=== PATIENT | male | born 1940 | race Caucasian/White ===

== ENCOUNTER 2020-01-25 08:18 | Outpatient (CLI) | payer MEDICARE, SELFPAY ==
--- NOTE | 2020-01-25 | ECG_ITS ---
Measurements Intervals [place] Rate: 58 P: -5 SD: 148 QRS: -41 QRSD: 126 T: 78 QT: 453 QTc: 449 Interpretive Statements SINUS BRADYCARDIA WITH MARKED SINUS ARRHYTHMIA ATRIAL PREMATURE COMPLEXES LEFT AXIS DEVIATION BORDERLINE AV CONDUCTION DELAY LEFT BUNDLE BRANCH BLOCK ABNORMAL ECG Electronically Signed On 01-25-2020 9:14:28 CDT by Jerzy Gamble D.O.
[2020-01-25 09:09] LABS: Cholesterol 131 mg/dL (0-200); HDL Direct 44 mg/dL; Triglycerides 91 mg/dL (<150)
[2020-01-25 09:20] LABS: LDL Cholesterol Direct 67 mg/dL
== END 2020-01-25 08:19 | disposition home or self-care (01) ==
PROVIDERS: PCP Internal Medicine; Visit Provider Internal Medicine Cardiovascular Disease
DX: Z95.1 Presence of aortocoronary bypass graft (principal); Z95.2 Presence of prosthetic heart valve; E78.2 Mixed hyperlipidemia; I48.0 Paroxysmal atrial fibrillation; J98.4 Other disorders of lung; I48.91 Unspecified atrial fibrillation; R06.83 Snoring; R94.31 Abnormal electrocardiogram [ECG] [EKG]
CPT/HCPCS: 36415; 80061; 93005

== ENCOUNTER 2020-08-01 11:27 | Outpatient (CLI) | payer MEDICARE, SELFPAY ==
--- NOTE | 2020-08-01 11:56 | ECG_ITS ---
Measurements Intervals [place] Rate: 59 P: -53 MO: 143 QRS: -52 QRSD: 131 T: 88 QT: 434 QTc: 431 Interpretive Statements SINUS OR ECTOPIC ATRIAL BRADYCARDIA LEFT BUNDLE BRANCH BLOCK BASELINE ARTIFACT- I, III, AVR, AVL, AVF, V1-V6 ABNORMAL ECG Electronically Signed On 08-01-2020 13:01:33 CDT by Jerzy Gamble D.O.
== END 2020-08-01 11:28 | disposition home or self-care (01) ==
PROVIDERS: PCP Internal Medicine Cardiovascular Disease; Visit Provider Internal Medicine Cardiovascular Disease
DX: E78.2 Mixed hyperlipidemia (principal); I48.0 Paroxysmal atrial fibrillation; J98.4 Other disorders of lung; I48.91 Unspecified atrial fibrillation; Z95.1 Presence of aortocoronary bypass graft; Z95.2 Presence of prosthetic heart valve; I44.7 Left bundle-branch block, unspecified
CPT/HCPCS: 93005

== ENCOUNTER 2021-10-28 09:51 | Emergency (ER) | payer MEDICARE, SELFPAY ==
[2021-10-28] VITALS (14 sets, daily range): BP systolic 111–166; BP diastolic 64–91; PULSE 45–60; RESP 14–21; O2SAT 96–100
--- NOTE | ~2021-10-28 | CT_ITS ---
EXAMINATION: CT brain wo con DATE: 10/28/2021 11:21 INDICATION: Dizziness TECHNIQUE: Computed tomography (CT) of the head was performed without intravenous contrast. The mA wa s adjusted according to patient size. Iterative reconstruction technique was employed. Exam dose: 60 5.33 mGy-cm total exam DLP. COMPARISON: 12/01/2014 CT brain FINDINGS: Bilateral vertebral artery, basilar artery and prominent bilateral carotid siphon and supra clinoid internal carotid artery calcifications. There is nonspecific diminished attenuation of the cerebral white matter, likely due to chronic small vessel ischemic changes. There is moderately prominent cerebral and cerebellar volume loss. No intracranial mass lesion or hemorrhage or cerebrovascular accident is detected. No midline shift o r mass effect effect. No orbital mass lesion. Bilateral maxillary sinus mucous retention cysts or polyps. Is mild patchy soft tissue thickening of the ethmoid septa. The paranasal sinuses and mastoid air cells are otherwise unremarkable. No fracture or bone destruction of the cranial vault. IMPRESSION: Cerebral atherosclerosis and chronic small vessel ischemic changes of the cerebral white matter No acute intracranial finding Reviewed, dictated and finalized at [facility]. Reviewed, dictated and finalized at location [facility].
--- NOTE | 2021-10-28 10:31 | PC.NURSE ---
EDP at bedside to assess pt.
--- NOTE | 2021-10-28 10:40 | ECG_ITS ---
Measurements Intervals [place] Rate: 49 P: PA: 0 QRS: -45 QRSD: 130 T: 71 QT: 480 QTc: 435 Interpretive Statements MARKED SINUS BRADYCARDIA WITH OCCASIONAL ATRIAL PREMATURE COMPLEXES LEFT ANTERIOR FASCICULAR BLOCK [QRS AXIS <= -45, QR IN I, RS IN II] MODERATE ST DEPRESSION [0.05+ mV ST DEPRESSION] INTRAVENTRICULAR CONDUCTION DELAY ABNORMAL ECG Electronically Signed On 10-28-2021 13:43:34 CDT by Ham Stephens M.D.
--- NOTE | 2021-10-28 10:41 | ED.DIZZY ---
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 no other issues fine when to bed last night on eliquis Related Data Allergies Allergy/AdvReac Type Severity Reaction Status Date / Time No Known Allergies Allergy Unverified 08/24/18 07:56 Review of Systems Constitutional: Comments: CONSTITUTIONAL: Denies fever, chills, or sweats. EYES: Denies visual changes, redness, or discharge. ENT: Denies rhinorrhea, congestion, sore throat, or otalgia. CARDIOVASCULAR: Denies chest pain, palpitations, or edema. RESPIRATORY: Denies cough or dyspnea. GASTROINTESTINAL: Denies abdominal pain, nausea, vomiting, or diarrhea. GENITOURINARY: Denies dysuria or hematuria. SKIN: Denies rash or itching. MUSCULOSKELETAL: Denies back pain, joint pain, or myalgia. NEUROLOGIC: Denies headache, numbness, or weakness. PSYCHIATRIC: Denies anxiety or depression. ON LICENSE OF [facility] Family History Family History (Updated 05/06/15 @ 07:37 by DOCTOR UNKNOWN) Sibling Malignant neoplasm of prostate Mother Family history of heart disease in male family member before age 55 Father Family history of heart disease in male family member before age 55 Social History Social History Smoking status: Never smoker Alcohol intake: current Exam Const: Other: APPEARANCE: Well appearing, no pain in distress, well-nourished. Head normocephalic atraumtaic. EYES: PERRLA/EOMI, conjunctivae very clear. NOSE: Normal no drainage EARS:TMS clear Deuce Medley, with good light reflex. THROAT: Pharynx clear, no exudate. NECK: Supple. No adenopathy, no masses. RESPIRATORY: Airway patent, repsirations nonlabored. Clear to auscultation bilaterally, no rales, rhonchi, wheezing. CARDIOVASCULAR: Regular rate and rhythm without murmurs rubs or gallops. ABDOMINAL: Soft, nontender, nondistended, no hepatosplenomegally MUSCULOSKELETAl: Moves all extremities. Strenght/ROM intact, No edema, No calf tenderness. NEURO: Alert. Cranial nerves II through XII intact. Good gait. Good coordination SKIN:: Warm, dry. Normal Color PSYCHIATRIC: Normal affect/mood, normal interaction with parents. Course Course Emergency Course: updated pt good with plan and will f/u his homicide squad sergeant at [facility] for further outpt testing and recheck platelet count Vital Signs Vital signs: Vital Signs Pulse Rate 59 L 10/28/21 10:31 Respiratory Rate 16 10/28/21 10:31 Blood Pressure 166/91 H 10/28/21 10:31 Pulse Oximetry 97 10/28/21 10:31 Oxygen Delivery Room Air 10/28/21 10:31 Pulse Rate 59 L 10/28/21 10:31 Respiratory Rate 16 10/28/21 10:31 Blood Pressure 166/91 H 10/28/21 10:31 Pulse Oximetry 97 10/28/21 10:31 Oxygen Delivery Room Air 10/28/21 10:31 MDM - Dizziness Lab Data Result diagrams: 10/28/21 10:50 10/28/21 10:50 Labs: Lab Results 10/28/21 10/28/21 10/28/21 Range/Units 10:50 10:50 10:50 WBC 7.7 (4.5-10.0) K/mm3 RBC 5.01 (4.6-6.20) M/mm3 Hgb 15.1 (14.0-18.0) g/dL Hct 46.0 (42.0-52.0) % MCV 91.8 (80-100) fl MCH 30.1 (26-34) pg MCHC 32.8 (32-36) g/dl RDW 12.9 (11.5-14.5) % Plt Count 139 L (150-375) k/mm3 MPV 11.1 H (7.4-10.4) fl Immature Gran % (Auto) 0.1 (0-0.5) % Neut % (Auto) 54.1 (45.5-73.1) % Lymph % (Auto) 33.5 (18.3-44.2) % [place] % (Auto) 10.2 H (2.6-8.5) % Eos % (Auto) 1.7 (0-4.4) % Baso % (Auto) 0.4 (0.2-1.2) % Lymph # (Auto) 2.58 (0.9-3.2) K/mm3 [place] # (Auto) 0.8 H (0.1-0.6) K/mm3 Eos # (Auto) 0.1 (0-0.3) K/mm3 Baso # (Auto) 0.0 (0.0-0.1) K/mm3 Abs Immat Gran (auto) 0.01 (0.00-0.031)
[2021-10-28 11:01] LABS: Basophils Percent Auto 0.4 % (0.2-1.2); Eosinophils Absolute Auto 0.1 K/mm3 (0-0.3); Eosinophils Percent Auto 1.7 % (0-4.4); Hemoglobin 15.1 g/dL (14.0-18.0); Immature Granulocyte Absolute 0.01 K/mm3 (0.00-0.031); Immature Granulocyte Percent A 0.1 % (0-0.5); Immature Platelet Fraction Pct 6.9 % (0.9-11.2); Lymphocytes Absolute Auto 2.58 K/mm3 (0.9-3.2); Lymphocytes Percent Auto 33.5 % (18.3-44.2); Mean Corpuscular HGB Conc 32.8 g/dl (32-36); Mean Corpuscular Hemoglobin 30.1 pg (26-34); Mean Corpuscular Volume 91.8 fl (80-100); Mean Platelet Volume 11.1 fl (7.4-10.4); Monocytes Absolute Auto 0.8 K/mm3 (0.1-0.6); Monocytes Percent Auto 10.2 % (2.6-8.5); Neutrophils Absolute Auto 4.2 K/mm3 (1.3-6.7); Neutrophils Percent Auto 54.1 % (45.5-73.1); Platelet Count Result 139 k/mm3 (150-375); Red Blood Count 5.01 M/mm3 (4.6-6.20); Red Cell Distribution Width 12.9 % (11.5-14.5); White Blood Count 7.7 K/mm3 (4.5-10.0)
[2021-10-28 11:15] LABS: Alanine Aminotransferase 29 U/L (6-50); Albumin Level 3.9 g/dL (3.5-5.1); Alkaline Phosphatase 85 U/L (38-126); Anion Gap 7 mmol/L (8-16); Aspartate Amino Transferase 25 U/L (17-59); Blood Urea Nitrogen 11 mg/dL (9-20); Calcium 8.5 mg/dL (8.4-10.2); Carbon Dioxide 23 mmol/L (22-30); Chloride 108 mmol/L (98-107); Estimated CRCL calculation 68 ml/min; Estimated Glomerular Filt Rate > 60; Glucose 94 mg/dL (65-110); INR 1.3; Prothrombin Time 15.7 Seconds (11.1-14.7); Sodium 138 mmol/L (137-145)
[2021-10-28 11:16] LABS: Partial Thromboplastin Time 32.4 SECONDS (22.3-36.8)
--- NOTE | 2021-10-28 11:20 | PC.NURSE ---
Patient off unit to CT.
[2021-10-28 11:26] LABS: Troponin I 0.014 ng/mL (0.000-0.034)
== END 2021-10-28 13:21 | disposition home or self-care (01) ==
PROVIDERS: Emergency Provider Emergency Medicine; PCP Internal Medicine Cardiovascular Disease
DX: R42 Dizziness and giddiness (principal); I67.2 Cerebral atherosclerosis; I49.1 Atrial premature depolarization; I44.4 Left anterior fascicular block; I45.9 Conduction disorder, unspecified
CPT/HCPCS: 36415; 70450; 80053; 84484; 85025; 85055; 85610; 85730; 93005; 99284

== ENCOUNTER 2022-08-10 10:42 | Emergency (ER) | payer MEDICARE, SELFPAY ==
[2022-08-10] VITALS (13 sets, daily range): BP systolic 125–160; BP diastolic 73–93; PULSE 70–73; RESP 13–22; TEMP 37; O2SAT 96–100
--- NOTE | ~2022-08-10 | CT_ITS ---
EXAMINATION: CT brain wo con DATE: 08/10/2022 13:20 INDICATION: Dizziness TECHNIQUE: Computed tomography (CT) of the head was performed without intravenous contrast. The mA wa s adjusted according to patient size. Iterative reconstruction technique was employed. Exam dose: 68 1.00 mGy-cm total exam DLP. COMPARISON: 10/28/2021 CT head. FINDINGS: Bilateral vertebral artery, basilar artery and prominent bilateral carotid siphon internal carotid artery calcifications are again noted. There is nonspecific diminished attenuation of the cerebral white matter, likely due to chronic small vessel ischemic changes. No intracranial mass lesion or hemorrhage or cerebrovascular accident. No midline shift or mass effec t. There is central and cortical cerebral atrophy. No subdural or epidural hematoma. There is polypoid soft tissue opacities of the maxillary sinuses consistent with mucous retention cys ts or polyps and patchy opacification of the ethmoid air cells. The mastoid air cells are normally de veloped and aerated. No fracture or bone destruction of the cranial vault IMPRESSION: No significant change since 10/28/2021 Reviewed, dictated and finalized at [facility]. Reviewed, dictated and finalized at location [facility].
--- NOTE | ~2022-08-10 | XR_ITS ---
XR chest 2V DATE: 08/10/2022 11:48 INDICATION: Weakness TECHNIQUE: AP and lateral views COMPARISON: 12/01/2014 PA and lateral chest FINDINGS: Status post sternotomy/CABG. Right dual lead pacemaker device with leads overlying right at rium and right ventricle. Heart size is normal. No pulmonary infiltrate or consolidation, pleural effusion or pulmonary vascular congestion or pneumo thorax is detected. Degenerative spurring of the thoracic spine. IMPRESSION: Status post sternotomy/CABG; right dual lead pacemaker device No active cardiopulmonary disease Reviewed, dictated and finalized at location [facility].
--- NOTE | 2022-08-10 11:00 | ECG_ITS ---
Measurements Intervals [place] Rate: 69 P: RI: 0 QRS: -86 QRSD: 194 T: 91 QT: 467 QTc: 504 Interpretive Statements SINUS RHYTHM WITH FIRST DEGREE AV BLOCK LEFT AXIS DEVIATION LEFT BUNDLE BRANCH BLOCK BASELINE ARTIFACT- I, II, AVR, AVL, AVF, V1-V6 ABNORMAL ECG COMPARED TO ECG 10/28/2021 11:58:13 SINUS RHYTHM NOW PRESENT Electronically Signed On 08-10-2022 12:53:21 CDT by Jerzy Gamble D.O.
[2022-08-10 11:31] LABS: Basophils Percent Auto 0.3 % (0.2-1.2); Eosinophils Absolute Auto 0.1 K/mm3 (0-0.3); Eosinophils Percent Auto 1.6 % (0-4.4); Hematocrit 44.6 % (42.0-52.0); Hemoglobin 14.3 g/dL (14.0-18.0); Immature Granulocyte Absolute 0.01 K/mm3 (0.00-0.031); Immature Granulocyte Percent A 0.1 % (0-0.5); Lymphocytes Absolute Auto 1.77 K/mm3 (0.9-3.2); Lymphocytes Percent Auto 24.3 % (18.3-44.2); Mean Corpuscular HGB Conc 32.1 g/dl (32-36); Mean Corpuscular Hemoglobin 29.8 pg (26-34); Mean Corpuscular Volume 92.9 fl (80-100); Monocytes Absolute Auto 0.5 K/mm3 (0.1-0.6); Monocytes Percent Auto 6.3 % (2.6-8.5); Neutrophils Absolute Auto 4.9 K/mm3 (1.3-6.7); Neutrophils Percent Auto 67.4 % (45.5-73.1); Platelet Count Result 152 k/mm3 (150-375); White Blood Count 7.3 K/mm3 (4.5-10.0)
[2022-08-10 11:48] LABS: Alanine Aminotransferase 17 U/L (6-50); Alkaline Phosphatase 66 U/L (38-126); Anion Gap 6 mmol/L (8-16); Aspartate Amino Transferase 25 U/L (17-59); Bilirubin,Total 0.8 mg/dL (0.2-1.3); Blood Urea Nitrogen 17 mg/dL (9-20); Calcium 8.5 mg/dL (8.4-10.2); Carbon Dioxide 29 mmol/L (22-30); Chloride 107 mmol/L (98-107); Estimated CRCL calculation 63 ml/min; Estimated Glomerular Filt Rate > 60; Glucose 152 mg/dL (65-110); Sodium 142 mmol/L (137-145)
--- NOTE | 2022-08-10 12:30 | ED.WEAKNESS ---
HPI - Weakness General Chief complaint: Weakness Stated complaint: Weakness Time Seen by Provider: 08/10/22 12:01 Source: RN notes reviewed History of Present Illness HPI Narrative: Patient presents emergency department from home for dizziness. Patient states he was sitting on the couch watching TV when he got extremely dizzy and diaphoretic. He states that this episode lasted for approximately 30 minutes and was resolving on the way into the emergency department is now completely resolved. States that the room felt like it was spinning and he felt like he was going to pass out. States that during this episode he had no numbness or weakness of the extremities denies having chest pain shortness of breath or any nausea or vomiting. He states he has no dizziness at this time. He states he is never had any similar episodes. The patient states he does have a pacemaker present Related Data Allergies Allergy/AdvReac Type Severity Reaction Status Date / Time No Known Allergies Allergy Unverified 08/10/22 11:38 Review of Systems Review of Systems: Gen.: Denies fevers or chills reports diaphoresis Eyes: Denies eye pain or visual change ENT: Denies congestion Respiratory: Denies shortness of breath or cough CV: Denies chest pain or palpitations GI: Denies abdominal pain nausea, emesis or diarrhea Musculoskeletal: Denies back pain or muscle pain Neuro: Reports dizziness Skin: Denies rash Except as documented, all other systems reviewed and negative FORMERLY [facility] Past Medical History Medical History (Updated 08/10/22 @ 15:20 by Marcel Kline DO) Essential (primary) hypertension Family History Family History (Updated 05/06/15 @ 07:37 by DOCTOR UNKNOWN) Sibling Malignant neoplasm of prostate Mother Family history of heart disease in male family member before age 55 Father Family history of heart disease in male family member before age 55 Social History Social History Smoking status: Never smoker Alcohol intake: current Exam Narrative: APPEARANCE: No acute distress, nontoxic, resting in bed HEENT: Normocephalic, atraumatic, OMM, TMs clear bilaterally EYES: PERRL, EOMI NECK: Supple, nontender, full range of motion without pain, no meningismus RESPIRATORY: No respiratory distress, clear to auscultation bilaterally with no rhonchi wheezing or rales CARDIOVASCULAR: RRR s murmur ABDOMINAL: Soft, nontender, nondistended MUSCULOSKELETAL: Moves all extremities. No clubbing, cyanosis or edema. NEURO: A and O ?3, following commands, speech normal, no facial droop,muscle strength 5 out of 5 bilateral upper and lower extremities, no pronator drift SKIN:: Warm, dry. Normal Color PSYCHIATRIC: Normal affect/mood Course Course Emergency Course: Patient was able to get up and ambulate in the emergency department with no dizziness and no difficulty The patient's pacemaker was interrogated I reviewed the interrogation as well as discussed with Urbano hector patient has been having some intermittent episodes of A-fib but patient had no episodes of A-fib or arrhythmias noted today that occurred with symptoms and A-fib is self-limited Called and discussed with Dr. Whitlock presentation and work-up agrees with plan for discharge patient does have a scheduled appointment for tomorrow Discussed with patient results of workup and diagnosis. Discussed need for follow-up with primary care, proper use of medication, and reasons to return to the emergency department. Patient understands and agrees to current treatment plan Vital Signs Vital signs: Vital Signs Temperature 98.6 F 08/10/22 10:57 Pulse Rate 70 08/10/22 10:57 Respiratory Rate 16 08/10/22 10:57 Blood Pressure 146/73 H 08/10/22 10:57 Pulse Oximetry 100 08/10/22 10:57 Oxygen Delivery Room Air 08/10/22 10:57 Temperature 98.6 F 08/10/22 10:57 Pulse Rate 70 08/10/22 14:41 Respiratory Rate 20 08/10/22
--- NOTE | 2022-08-10 12:43 | PC.NURSE ---
kim sanchezaster rep for [facility] [phone]
[2022-08-10 12:47] LABS: INR 1.4; Prothrombin Time 16.5 Seconds (11.1-14.7)
[2022-08-10 12:48] LABS: Partial Thromboplastin Time 30.9 SECONDS (22.3-36.8)
[2022-08-10 12:49] LABS: Troponin I < 0.012 ng/mL (0.000-0.034)
[2022-08-10 13:20] LABS: Appearance Urine Clear (Clear); Bacteria Urine None Seen /hpf; Bilirubin Urine Negative (Negative); Blood Urine 2+ (Negative); Color Urine Yellow (Yellow); Glucose Urine UA Negative (Negative); Ketones Urine Trace mg/dL (Negative); Leukocyte Esterase Ur Negative LEU/UL (Negative); Need Manual Microscopic Reviewed; Nitrate Urine Negative (Negative); Protein Urine 1+ mg/dL (Negative); RBC Urine 51-100 /hpf (0-2); Specific Grav Ur 1.025 (1.001-1.035); Squamous Epithelial Cell Urine Few /hpf (Few); pH Urine 5.5 (5.0-9.0)
[2022-08-10 13:26] LABS: Add Urine Microscopic? YES
== END 2022-08-10 15:48 | disposition home or self-care (01) ==
PROVIDERS: Emergency Medicine; Emergency Provider Emergency Medicine; PCP Internal Medicine Cardiovascular Disease
DX: R42 Dizziness and giddiness (principal); I10 Essential (primary) hypertension; R82.998 Other abnormal findings in urine; Z95.0 Presence of cardiac pacemaker; Z95.1 Presence of aortocoronary bypass graft; I44.0 Atrioventricular block, first degree; I44.7 Left bundle-branch block, unspecified
CPT/HCPCS: 36415; 70450; 71046; 80053; 81001; 84484; 85025; 85610; 85730; 87086; 93005; 99284

== ENCOUNTER 2024-02-20 15:59 | Inpatient (IN) | payer MEDICARE, SELFPAY ==
[2024-02-20] VITALS (20 sets, daily range): BP systolic 94–137; BP diastolic 55–69; PULSE 65–120; RESP 13–32; TEMP 37.6–39.6; O2SAT 95–100; BMI 21.2
--- NOTE | ~2024-02-20 | XR_ITS ---
EXAMINATION: XR chest PICC line DATE: 02/26/2024 12:47 INDICATION: Central line placement. TECHNIQUE: A single frontal view of the chest was obtained. COMPARISON: Chest 2 views 02/20/2024, chest CT 02/20/2024 FINDINGS: There is mild atelectasis in the lower lung zones. No pleural effusion or pneumothorax. Car diomegaly is noted. Median sternotomy wires and mediastinal surgical clips are seen, likely from prio r coronary artery bypass grafting. There is a right chest wall pacer with leads in the right atrium a nd right ventricle. A left upper extremity peripherally inserted central venous catheter (PICC) is se en with tip at superior cavoatrial junction. IMPRESSION: 1. PICC tip at superior cavoatrial junction. 2. Mild atelectasis in the lower lung zones. 3. Cardiomegaly. Reviewed, dictated and finalized at location A.
--- NOTE | ~2024-02-20 | CT_ITS ---
EXAMINATION: CT brain wo con DATE: 02/20/2024 17:43 INDICATION: AMS . TECHNIQUE: Computed tomography (CT) of the head was performed without intravenous contrast. The mA wa s adjusted according to patient size. Iterative reconstruction technique was employed. The dose-lengt h product was 1286.33 mGy-cm. COMPARISON: 08/10/2022. FINDINGS: Exam limited by moderate motion artifact. No acute intracranial hemorrhage or extra-axial fluid collection. No hydrocephalus, mass, or herniation. No acute ischemic infarct. Unremarkable dural venous sinus attenuation. No acute osseous abnormality. Bilateral maxillary retention cysts/polyps, the remaining aerated spaces are clear. Moderate atrophy and chronic white matter change. Atherosclerotic intracranial calcification. Bilater al lens replacements. IMPRESSION: No acute intracranial process. Reviewed, dictated and finalized at location [facility].
--- NOTE | ~2024-02-20 | CT_ITS ---
EXAMINATION: CT cervical spine wo con DATE: 02/20/2024 17:43 INDICATION: fall TECHNIQUE: Computed tomography (CT) of the cervical spine was performed without intravenous contrast. Automated exposure control and iterative reconstruction technique were employed. The dose-length pro duct was 271.97 mGy-cm. COMPARISON: X-ray chest 12/01/2014. FINDINGS: Vertebral Body Alignment: Exaggerated cervical lordosis. Grade 1 anterolistheses at C6-7 through T1-2 . Stable grade 1 anterolisthesis at T2-3. Craniocervical and atlantoaxial alignment: Moderate degenerative change. Alignment intact. Osseous structures/fracture: No evidence of a lytic or blastic process in the visualized spine. Mild anterior wedge deformity at T1-T2. Chronic stable superior endplate deformity at T3. Cervical soft tissues: The paraspinal soft tissues planes are maintained. Biapical pleural scarring. Aortic ectasia. Degenerative changes: Degenerative changes, without severe central canal narrowing. Severe bilateral neural foraminal narrowing at C5-6 secondary to degenerative change. IMPRESSION: Multilevel grade 1 anterolistheses at C6-7 through T1-2 presumably on a degenerative basis. Mild anterior wedge deformity at T1 and T2, probably a chronic finding noting that no comparisons are available to assess for interval change. Reviewed, dictated and finalized at location K. IMPRESSION: Multilevel grade 1 anterolistheses at C6-7 through T1-2 presumably on a degener ative basis. Mild anterior wedge deformity at T1 and T2, probably a chronic finding noting t hat no comparisons are available to assess for interval change.
--- NOTE | ~2024-02-20 | XR_ITS ---
EXAMINATION: XR abdomen/kub 1V DATE: 02/28/2024 09:15 INDICATION: Constipation TECHNIQUE: A supine view of the abdomen was obtained. COMPARISON: CT dated 02/20/2024 FINDINGS: Moderate amount of stool primarily in the proximal colon. No dilated gas-filled loops of bowel to sug gest obstruction. Large calcified gallstone projecting over the right upper quadrant. Lung bases are clear. Heart size is normal. Median sternotomy wires and mediastinal surgical clips are seen, likely from prior coronary artery bypass grafting. Dual-lead cardiac pacemaker with lead tips at the right a trium and right ventricle. Severe lower lumbar spondylosis. Small surgical clip at the medial proxima l left thigh. IMPRESSION: 1. Moderate amount of primarily proximal colonic stool. No dilated bowel to suggest obstruction. 2. Cholelithiasis. Reviewed, dictated and finalized at location A. IMPRESSION: 1. Moderate amount of primarily proximal colonic stool. No dilated bowel to sug gest obstruction. 2. Cholelithiasis.
--- NOTE | ~2024-02-20 | XR_ITS ---
EXAMINATION: XR chest 2V Exam Date/Time: 02/20/2024 17:33 CDT HISTORY: AMS Comparison: 08/10/2022. RESULT: Lines, tubes, and devices: Right chest pacer with intact leads. Intact sternotomy wires. Mediastinal surgical clips. Lungs and pleura: Emphysematous/senescent change, otherwise clear. Cardiomediastinal silhouette: Stable. Other: No acute osseous or upper abdominal finding. IMPRESSION: No acute cardiopulmonary process. Reviewed, dictated and finalized at location K.
--- NOTE | ~2024-02-20 | CT_ITS ---
EXAMINATION: CT chest abdomen pelvis w con DATE: 02/20/2024 18:41 INDICATION: sepsis, unknown source . TECHNIQUE: Computed tomography (CT) of the chest, abdomen, and pelvis was performed with 100 mL Omnip aque-350 intravenous contrast. Automated exposure control and iterative reconstruction technique were employed. The dose-length product was 466.88 mGy-cm. COMPARISON: X-ray chest, same date. FINDINGS: CHEST: Thoracic aorta: No significant dilation. No dissection. Lung parenchyma and airways: Mild motion artifact. Somewhat linear 7 mm left lower lobe and 8 mm righ t lower lobe opacities that are peripheral and flat in the orthogonal direction, likely represent sca r or intrapulmonary lymph nodes. Mild dependent atelectasis. Senescent changes. Apical pleural scarri ng. Patent airways. Thoracic inlet, axillae and chest wall: No thyroid or soft tissue mass. No axillary lymphadenopathy. Right chest pacer with intact leads, terminating in expected position. Mediastinum: No mass or lymphadenopathy. Heart and pericardium: Cardiomegaly. Status post CABG. Coronary artery calcifications: Moderate. Pleura: Small bilateral pleural fluid collections. Thoracic bones: No acute osseous finding in the chest. ABDOMEN/PELVIS: Liver: Normal. Biliary/Gallbladder: Cholelithiasis. No inflammatory changes No bile duct dilation. Pancreas: No mass or duct dilation. Spleen: Normal. Adrenals:No mass. Kidneys: No suspicious mass, obstructing stone, or hydronephrosis. GI tract: Mild distal esophageal and gastric wall edema. No small or large bowel dilation. Normal lizbeth endix. Diverticulosis without diverticulitis. Mesentery/Peritoneum: No ascites, mass, or free air. Retroperitoneum: No mass Pelvis: Moderate bladder wall thickening. Prostatomegaly. Soft Tissues: Soft tissues and body wall unremarkable. Abdominopelvic bones: No acute osseous finding in the abdomen/pelvis. Chronic-appearing superior end plate deformity at L3. IMPRESSION: Small bilateral pleural effusions. Mild esophagitis/gastritis. Cystitis versus bladder wall thickening from chronic outlet obstruction. Reviewed, dictated and finalized at location K.
--- NOTE | 2024-02-20 16:13 | ECG_ITS ---
Test Date: 2024-02-20 16:29:05 Measurements Intervals [place] Rate: 71 P: 0 MI: 0 QRS: 1 QRSD: 184 T: 58 QT: 405 QTc: 442 Interpretive Statements ELECTRONIC VENTRICULAR PACEMAKER No previous ECG available for comparison Electronically Signed On 02-20-2024 21:07:20 CDT by Toy Wellington M.D.
--- NOTE | 2024-02-20 16:24 | ED.AMS ---
HPI - Altered Mental Status General Chief Complaint: Altered Mental Status Stated Complaint: 6 falls last 2d, ams Time Seen by Provider: 02/20/24 16:13 History of Present Illness HPI narrative: 83-year-old male with history of pacemaker placement on Eliquis, hypertension, hyperlipidemia, dementia presents to the emergency department with at bedside for altered mental status and frequent falls. Over the past 3 days the patient has become increasingly her per the and states he has fallen 6 times in the past 2 days which is abnormal. From a fall yesterday he did hit his head did not lose consciousness. The patient is reporting pain to his right ribs but denies other areas of pain. He denies chest pain or shortness of breath, congestion, abdominal pain, N/V/ D, dysuria or hematuria, headache. The patient's states the patient has been moving his right arm uncontrollably for the past 7 days this is also new normal she notes that he has Unintentionally lost approximately 30 lb in the past 3 months. patient's states he has not been eating well. I discussed goals of care with the patient's . She desires the patient to be a full code. Related Data Home Medications Medication Instructions Recorded Confirmed apixaban 5 mg tablet (Eliquis) 5 mg PO BID 02/20/24 02/20/24 atorvastatin 20 mg tablet 20 mg PO DAILY 02/20/24 02/20/24 donepezil 5 mg tablet 5 mg PO DAILY 02/20/24 02/20/24 lisinopril 20 mg tablet 20 mg PO DAILY 02/20/24 02/20/24 metoprolol tartrate 25 mg tablet 25 mg PO HS 02/20/24 02/20/24 Allergies Allergy/AdvReac Type Severity Reaction Status Date / Time No Known Allergies Allergy Verified 02/20/24 21:31 Review of Systems Review of Systems: All systems reviewed & are unremarkable except as noted in HPI and below PMFSH Past Medical History Medical History Essential (primary) hypertension Family History Family History Sibling Malignant neoplasm of prostate Mother Family history of heart disease in male family member before age 55 Father Family history of heart disease in male family member before age 55 Social History Social History Smoking status: Former smoker Alcohol intake: current Do You Feel Safe in your Home?: Yes Lack of Transportation: No Lack of Food: Never True Current Housing: I Have Housing Concerned About Future Housing: No Difficulty Paying Gas/Electric Bills: No Difficulty Paying for Meds: No Currently Unemployed: No Education: High School Diploma/GED Difficulty w/ Childcare or Family Care: No Spiritual care concerns: No Exam Narrative: GENERAL: Elderly, confused, following commands, NAD HEAD: Normocephalic, atraumatic. EYES: PERRLA and EOMI. ENT: Nares clear, no rhinorrhea or epistaxis. Mucous membranes dry NECK: No midline cervical spinous tenderness, step-offs or deformities. BACK: No midline thoracolumbar spinous tenderness, step-offs or deformities CHEST: Clear to auscultation. No respiratory distress. tenderness to right chest wall with no crepitus, step-offs or deformities. pacemaker in place to the right chest wall. HEART: Regular rate and rhythm. No murmur heard. Normal peripheral pulses. ABDOMEN: Soft, nontender, nondistended, normal active bowel sounds. EXTREMITIES: Normal range of motion. No edema. SKIN: What appears to be an epidermal inclusion cyst to the sternum with surrounding warmth and blanching erythema, no fluctuance or induration, spontaneous drainage, no crepitus NEURO: No focal deficits. Alert and oriented x3 - patient able to tell me his name, where he is at, the year. States the month is March and is unable to elaborate why he is in the emergency department. cranial nerves 2-12 grossly intact. Sensation intact throughout. Streng
[2024-02-20 16:40] LABS: Base Excess ABG -0.8 mEq/l (+/-2.0); Fractional Inspired Oxygen 21 %; Oxygen Content ABG 17.5 %vol (16.0-22.0); Oxygen Saturation ABG 96.3 % (95.0-100.0); Oxyhemoglobin 95.4 % THb (90.0-100.0); PO2 ABG 74.4 mmHg (80.0-100.0); PO2 FiO2 Ratio Arterial Blood 3.54 %
[2024-02-20 16:43] LABS: Device ROOM AIR; Site Drawn LEFT RADIAL; pH ABG 7.509 (7.350-7.450)
[2024-02-20 16:45] LABS: Basophils Percent Auto 0.1 % (0.2-1.2); Eosinophils Percent Auto 0.1 % (0-4.4); Hematocrit 37.7 % (42.0-52.0); Hemoglobin 12.9 g/dL (14.0-18.0); Immature Granulocyte Absolute 0.06 K/mm3 (0.00-0.031); Immature Granulocyte Percent A 0.4 % (0-0.5); Lymphocytes Absolute Auto 0.49 K/mm3 (0.9-3.2); Lymphocytes Percent Auto 3.4 % (18.3-44.2); Mean Corpuscular HGB Conc 34.2 g/dl (32-36); Mean Corpuscular Hemoglobin 31.1 pg (26-34); Mean Corpuscular Volume 90.8 fl (80-100); Mean Platelet Volume 10.8 fl (7.4-10.4); Monocytes Absolute Auto 1.1 K/mm3 (0.1-0.6); Monocytes Percent Auto 7.7 % (2.6-8.5); Neutrophils Absolute Auto 12.7 K/mm3 (1.3-6.7); Neutrophils Percent Auto 88.3 % (45.5-73.1); Platelet Count Result 159 k/mm3 (150-375); Red Blood Count 4.15 M/mm3 (4.6-6.20); Red Cell Distribution Width 12.8 % (11.5-14.5); White Blood Count 14.4 K/mm3 (4.5-10.0)
[2024-02-20 16:54] LABS: Ethanol < 10 mg/dL (<10)
[2024-02-20 16:55] LABS: INR 1.7; Lactic Acid Reflex 2.1 mmol/L (0.7-2.0); Prothrombin Time 20.6 Seconds (11.1-14.7)
[2024-02-20 16:56] LABS: Partial Thromboplastin Time 39.3 Seconds (22.3-36.8)
[2024-02-20 16:59] LABS: Alanine Aminotransferase 19 U/L (6-50); Albumin Level 3.6 g/dL (3.5-5.1); Alkaline Phosphatase 71 U/L (38-126); Anion Gap 6 mmol/L (4-12); Aspartate Amino Transferase 28 U/L (17-59); Bilirubin,Total 1.2 mg/dL (0.2-1.3); Blood Urea Nitrogen 19 mg/dL (9-20); Calcium 8.8 mg/dL (8.4-10.2); Carbon Dioxide 25 mmol/L (22-30); Chloride 104 mmol/L (98-107); Creatine Kinase 51 U/L (55-170); Estimated CRCL calculation 59 ml/min; Estimated Glomerular Filt Rate > 60; Glucose 160 mg/dL (65-110); Lipase 33 U/L (23-300); Sodium 135 mmol/L (137-145)
[2024-02-20 17:06] LABS: Troponin I 0.012 ng/mL (0.000-0.034)
[2024-02-20] MEDS: LACTATED RINGERS 2,100 ML/1,000 ML BAG 999 ML IV CONT ×2 (17:15→18:46)
[2024-02-20] MEDS: PIPERACILLN/TAZ 3.375GM/NS50ML 3.375 GM/50 ML BAG IVPB ×2 (17:15→22:46)
[2024-02-20 17:16] LABS: Amphetamine Screen Urine Negative (Negative); Barbiturate Screen Urine Negative (Negative); Benzodiazepines Screen Urine Negative (Negative); Cannabinoid Screen Urine Negative (Negative); Cocaine Screen Urine Negative (Negative); Methadone Screen Urine Negative (Negative); Opiate Screen Urine Negative (Negative); Phencyclidine Screen Urine Negative (Negative)
[2024-02-20 17:20] LABS: Influenza A QL RT-PCR Negative (Negative); Influenza B QL RT-PCR Negative (Negative); RSV RNA, RT-PCR Negative (Negative); SARS-CoV-2 RNA PCR Negative (Negative)
[2024-02-20 17:25] LABS: Thyroid Stimulating Hormone 0.799 uIU/mL (0.465-4.680)
[2024-02-20 17:36] LABS: Add Urine Microscopic? YES; Appearance Urine Clear (Clear); Bacteria Urine None Seen /hpf; Bilirubin Urine 1+ (Negative); Blood Urine 1+ (Negative); Color Urine Dark Yellow (Yellow); Glucose Urine UA Negative (Negative); Ketones Urine Trace mg/dL (Negative); Leukocyte Esterase Ur Trace LEU/UL (Negative); Mucus Urine Present /lpf; Need Manual Microscopic Reviewed; Nitrate Urine Negative (Negative); Non Pathogenic Casts 0-2; Protein Urine 2+ mg/dL (Negative); Squamous Epithelial Cell Urine None Seen /hpf (Few); WBC Urine 0-5 /hpf (0-3); pH Urine 5.5 (5.0-9.0)
[2024-02-20] MEDS: ACETAMINOPHEN 500 MG TABLET 1000 MG PO (17:43)
[2024-02-20] MEDS: VANCOMYCIN 1,750 MG/NS 500 ML 1,750 MG/500 ML BAG 250 MG IVPB (18:28)
[2024-02-20 19:41] LABS: Reflex Lactic Acid Yes or No Add Lactic
[2024-02-20 20:21] LABS: Lactic Acid 0.8 mmol/L (0.7-2.0)
--- NOTE | 2024-02-20 20:33 | PM.IMHP ---
H&P: HPI History of Present Illness Date/Time: 02/20/24 20:33 Chief Complaint: altered mental status Narrative: this is an 83-year-old male with past medical history significant for dementia, hypertension. patient comes to the emergency room with his due to altered mental status, lethargy, a temp of 99? F, recurrent falls, right upper extremity involuntary movement. Most of the history has been obtained from who is at bedside patient although he knows he is at [facility] can not tell why he is in the hospital. Patient denies any issues at the present time. Preliminary workup has been essentially nonrevealing. Patient has been started empirically on antibiotics placed in observation for further evaluation management and treatment. EXAMINATION: CT brain wo con DATE: 02/20/2024 17:43 INDICATION: AMS . TECHNIQUE: Computed tomography (CT) of the head was performed without intravenous contrast. The mA was adjusted according to patient size. Iterative reconstruction technique was employed. The dose-length product was 1286.33 mGy-cm. COMPARISON: 08/10/2022. FINDINGS: Exam limited by moderate motion artifact. No acute intracranial hemorrhage or extra-axial fluid collection. No hydrocephalus, mass, or herniation. No acute ischemic infarct. Unremarkable dural venous sinus attenuation. No acute osseous abnormality. Bilateral maxillary retention cysts/polyps, the remaining aerated spaces are clear. Moderate atrophy and chronic white matter change. Atherosclerotic intracranial calcification. Bilateral lens replacements. IMPRESSION: No acute intracranial process. EXAMINATION: XR chest 2V Exam Date/Time: 02/20/2024 17:33 CDT HISTORY: AMS Comparison: 08/10/2022. RESULT: Lines, tubes, and devices: Right chest pacer with intact leads. Intact sternotomy wires. Mediastinal surgical clips. Lungs and pleura: Emphysematous/senescent change, otherwise clear. Cardiomediastinal silhouette: Stable. Other: No acute osseous or upper abdominal finding. IMPRESSION: No acute cardiopulmonary process. EXAMINATION: CT chest abdomen pelvis w con DATE: 02/20/2024 18:41 INDICATION: sepsis, unknown source . TECHNIQUE: Computed tomography (CT) of the chest, abdomen, and pelvis was performed with 100 mL Omnipaque-350 intravenous contrast. Automated exposure control and iterative reconstruction technique were employed. The dose-length product was 466.88 mGy-cm. COMPARISON: X-ray chest, same date. FINDINGS: CHEST: Thoracic aorta: No significant dilation. No dissection. Lung parenchyma and airways: Mild motion artifact. Somewhat linear 7 mm left lower lobe and 8 mm right lower lobe opacities that are peripheral and flat in the orthogonal direction, likely represent scar or intrapulmonary lymph nodes. Mild dependent atelectasis. Senescent changes. Apical pleural scarring. Patent airways. Thoracic inlet, axillae and chest wall: No thyroid or soft tissue mass. No axillary lymphadenopathy. Right chest pacer with intact leads, terminating in expected position. Mediastinum: No mass or lymphadenopathy. Heart and pericardium: Cardiomegaly. Status post CABG. Coronary artery calcifications: Moderate. Pleura: Small bilateral pleural fluid collections. Thoracic bones: No acute osseous finding in the chest. ABDOMEN/PELVIS: Liver: Normal. Biliary/Gallbladder: Cholelithiasis. No inflammatory changes No bile duct dilation. Pancreas: No mass or duct dilation. Spleen: Normal. Adrenals:No mass. Kidneys: No suspicious mass, obstructing stone, or hydronephrosis. GI tract: Mild distal esophageal and gastric wall edema. No small or large bowel dilation. Normal appendix. Diverticulosis without diverticulitis. Mesentery/Peritoneum: No ascites, mass, or free air. Retroperitoneum: No mass Pelvis: Moderate bladder wall thickening. Prostatomegaly. Soft Tissues: Soft tissues and body wall unremarkable. Abdominopelvic b
--- NOTE | 2024-02-20 21:20 | ADMGEN ---
This patient, Tom Garner, was admitted to [facility] Surg Room 333-01. Patient/family oriented to hospital policies and general routines including ID bracelet, bed and alarms, visiting hours, pain management, procedures, bathroom and other care routines, personal items, smoking policy, room service/diet, and visiting hours. Information on how to activate the Rapid Response Team has been discussed. Patient/Family are encouraged to report perceived risks to care and to ask questions if they do not understand what they are told or what they should do.
[2024-02-20] MEDS: ACETAMINOPHEN 325 MG TABLET 650 MG PO (21:37)
[2024-02-21] VITALS (7 sets, daily range): BP systolic 90–96; BP diastolic 50–65; PULSE 69–72; RESP 14–20; TEMP 36.8–37.7; O2SAT 92–94; BMI 21.2
[2024-02-21] MEDS: PIPERACILLN/TAZ 3.375GM/NS50ML 3.375 GM/50 ML BAG IVPB ×4 (05:03→22:19)
[2024-02-21] MEDS: ACETAMINOPHEN 325 MG TABLET 650 MG PO (05:17)
[2024-02-21] MEDS: SODIUM CHLORIDE 0.9% IV 1,000 ML 999 ML IV CONT ×2 (05:34→06:50)
[2024-02-21 06:53] LABS: Estimated CRCL calculation 45 ml/min; Estimated Glomerular Filt Rate > 60
[2024-02-21] MEDS: ATORVASTATIN 20 MG TABLET PO (08:32)
[2024-02-21] MEDS: APIXABAN 5 MG TABLET PO ×2 (08:32→20:51)
[2024-02-21] MEDS: DONEPEZIL HCL 5 MG TABLET PO (08:32)
--- NOTE | 2024-02-21 16:10 | PM.IMPN ---
Progress Note: A&P Assessment and Plan (1) Fever: Code(s): R50.9 - Fever, unspecified Status: Acute (2) Altered mental status: Qualifiers: Altered mental status type: delirium Qualified Code(s): R41.0 - Disorientation, unspecified Code(s): R41.82 - Altered mental status, unspecified Status: Acute (3) Essential (primary) hypertension: Code(s): I10 - Essential (primary) hypertension Status: Acute (4) Dementia: Code(s): F03.90 - Unspecified dementia, unspecified severity, without behavioral disturbance, psychotic disturbance, mood disturbance, and anxiety Status: Acute (5) Dystonia: Code(s): G24.9 - Dystonia, unspecified Status: Acute Plan This is an 83-year-old male who presented to the ED with altered mental status and frequent falls over the past 3 days. On arrival to the ED he was hypotensive at 94/60 with temperature of 103.1?. He received IV fluid resuscitation and was started on broad-spectrum antibiotics. Laboratory workup showed CBC with leukocytosis of 14.4 hemoglobin 12.9 platelet was 159. CRP elevated at 17 TSH normal lactate mildly elevated at 2.1. Urinalysis showed rbc's and trace leukocyte esterase but no WBC. UDS any Thal alcohol level was negative. COVID flu swab and RSV swab was negative. EKG showed electronic ventricular pacemaker with a rate of 71 beats per minute. Troponin was undetectable. CT scan of the head showed no acute intracranial process. CT cervical spine showed multilevel grade 1 anterolisthesis at C6-C7 through T1-T2 on a degenerative basis. Mild anterior wedging deformity T1-T2 which is likely chronic. Chest x-ray with no acute cardiopulmonary process. ABG showed 7.509/27/74/21 consistent with respiratory alkalosis with compensatory metabolic alkalosis. Chest abdomen pelvis CT was done which showed small bilateral pleural effusion mild esophagitis/ gastritis and cystitis versus bladder wall thickening from chronic outlet obstruction. repeat lactic acid was normal with resuscitation Mild cellulitis the chest wall noted which could be the potential source. Continue antibiotics as ordered With vancomycin and Zosyn. unclear source of infection. Hypotension: Still mildly hypotensive and will hold blood pressure medication. Unintentional weight loss of 30 lb over past 3 months reported by recurrent falls PT OT to see leukocytosis Recheck labs and monitor leukocytosis. Gastritis/esophagitis add PPI Dementia History of dystonia Hypertension Hyperlipidemia History of pacemaker placement Chronic anticoagulation with Eliquis DVT prophylaxis Code status full code Subjective Date/time seen: 02/21/24 16:10 Interval history: patient feels better today. Denies any overt complain. Was febrile overnight. at bedside. Review of Systems Review of Systems: All systems reviewed & are unremarkable except as noted in HPI and below Exam Narrative: GENERAL: Elderly, confused, following commands, NAD HEAD: Normocephalic, atraumatic. EYES: PERRLA and EOMI. CHEST: Clear to auscultation. No respiratory distress. tenderness to right chest wall with no crepitus, step-offs or deformities. pacemaker in place to the right chest wall. HEART: Regular rate and rhythm. No murmur heard. Normal peripheral pulses. ABDOMEN: Soft, nontender, nondistended, normal active bowel sounds. EXTREMITIES: Normal range of motion. No edema. SKIN: What appears to be an epidermal inclusion cyst to the sternum with surrounding warmth and blanching erythema, no fluctuance or induration, spontaneous drainage, no crepitus NEURO: No focal deficits. Alert and oriented x3 - Objective Data Vital Signs Vital Signs: Vital Signs - 24 hr 02/20/24 16:17 02/20/24 17:11 02/20/24 17:11 Temperature 103.1 F H Pulse Rate 90 77 Respiratory Rate 20 Blood Pressure 94/64 L Pulse Oximetry 97 98 Oxygen Delivery Room Air Fraction o
[2024-02-21] MEDS: VANCOMYCIN 1,500 MG/NS 500 ML 1,500 MG/500 ML BAG 250 MG IVPB (17:53)
[2024-02-21 18:12] LABS: Basophils Percent Auto 0.3 % (0.2-1.2); Eosinophils Absolute Auto 0.1 K/mm3 (0-0.3); Eosinophils Percent Auto 0.4 % (0-4.4); Hematocrit 35.4 % (42.0-52.0); Hemoglobin 11.5 g/dL (14.0-18.0); Immature Granulocyte Absolute 0.05 K/mm3 (0.00-0.031); Immature Granulocyte Percent A 0.4 % (0-0.5); Lymphocytes Absolute Auto 0.79 K/mm3 (0.9-3.2); Lymphocytes Percent Auto 5.7 % (18.3-44.2); Mean Corpuscular HGB Conc 32.5 g/dl (32-36); Mean Corpuscular Hemoglobin 30.3 pg (26-34); Mean Corpuscular Volume 93.4 fl (80-100); Mean Platelet Volume 10.8 fl (7.4-10.4); Monocytes Absolute Auto 0.7 K/mm3 (0.1-0.6); Monocytes Percent Auto 4.8 % (2.6-8.5); Neutrophils Absolute Auto 12.2 K/mm3 (1.3-6.7); Neutrophils Percent Auto 88.4 % (45.5-73.1); Platelet Count Result 147 k/mm3 (150-375); Red Blood Count 3.79 M/mm3 (4.6-6.20); Red Cell Distribution Width 13.1 % (11.5-14.5); White Blood Count 13.8 K/mm3 (4.5-10.0)
[2024-02-21 18:36] LABS: Alanine Aminotransferase 22 U/L (6-50); Alkaline Phosphatase 74 U/L (38-126); Anion Gap 6 mmol/L (4-12); Aspartate Amino Transferase 35 U/L (17-59); Bilirubin,Total 1.1 mg/dL (0.2-1.3); Blood Urea Nitrogen 19 mg/dL (9-20); Calcium 8.2 mg/dL (8.4-10.2); Carbon Dioxide 23 mmol/L (22-30); Chloride 106 mmol/L (98-107); Estimated CRCL calculation 49 ml/min; Estimated Glomerular Filt Rate > 60; Glucose 130 mg/dL (65-110); Potassium 3.7 mmol/L (3.4-5.0); Sodium 135 mmol/L (137-145)
[2024-02-21] MEDS: PANTOPRAZOLE 40 MG TABLET PO (20:51)
--- NOTE | 2024-02-22 | ECHO_ITS ---
Patient Info Name: Tom Garner Age: 83 years : 1940 Gender: Male Ht: 72 in Wt: 156 lbs BSA: 1.89 m2 HR: 62 bpm BP: 110 / 65 mmHg Heart Rhythm: Paced Technical Quality: Fair Exam Date: 02/22/2024 10:00 AM Exam Location: Echo Lab Patient Status: Inpatient Admit Date: 02/21/2024 Staff Ordering Physician: Bradly Morales MD Motor Scooter Repairer: Awilda Francisco [facility] Attending Provider: Jovani Uriarte MD Exam Type: CA echo doppler color flow Study Info Indications - Bacteremia Complete two-dimensional, color flow and Doppler transthoracic echocardiogram is performed. Summary 1. Complete two-dimensional, color flow and Doppler transthoracic echocardiogram is performed. 2. With normal left ventricular size and overall normal systolic function. 3. Abnormal septal motion consistent with electronically paced rhythm. 4. Severe biatrial enlargement. 5. Small amount of mitral and tricuspid insufficiency. 6. No infectious vegetations were visualized. Left Ventricle Left ventricular chamber dimension is normal. Left ventricular systolic function is normal, estimated at 50-55%. Left ventricular septal wall motion is abnormal with septal motion related to pacing. The left ventricular diastolic function is normal. Right Ventricle Right ventricular chamber dimension is normal. Left Atria Left atrial chamber dimension is severely enlarged. Right Atria Right atrial chamber dimension is moderately enlarged. Aortic Valve The aortic valve is trileaflet. There is mild aortic valve sclerosis. Pulmonic Valve The pulmonic valve is normal. Mitral Valve The mitral valve has normal leaflets. There is mild mitral valve regurgitation. The mitral valve annulus is mildly calcified. Tricuspid Valve The tricuspid valve leaflets are normal. There is trace tricuspid valve regurgitation. Pericardium/Pleural The pericardium appears normal. Aorta The aortic root size at the sinus of Valsalva is normal. Left Ventricular Outflow Tract Name Value Normal LVOT 2D LVOT Diameter 2.0 cm LVOT Doppler LVOT Peak Gradient 3 mmHg LVOT Mean Gradient 1 mmHg LVOT VTI 16 cm LVOT VTI/AV VTI Ratio 0.7 LVOT Stroke Volume 50 ml LVOT CO 3.4 l/min LVOT CI 1.8 l/min/m2 Pulmonic Valve Name Value Normal PV Doppler PV Peak Gradient 2 mmHg PV Regurgitation Doppler PA Peak End Diastolic Velocity 96 cm/s Mitral Valve Name Value Normal MV Doppler
[2024-02-22] MEDS: PIPERACILLN/TAZ 3.375GM/NS50ML 3.375 GM/50 ML BAG IVPB ×2 (04:41→10:24)
[2024-02-22 05:24] VITALS: BP 110/65; PULSE 70; RESP 14; TEMP 36.7; O2SAT 97
[2024-02-22 06:55] LABS: Basophils Percent Auto 0.2 % (0.2-1.2); Eosinophils Absolute Auto 0.1 K/mm3 (0-0.3); Eosinophils Percent Auto 1.4 % (0-4.4); Hematocrit 32.1 % (42.0-52.0); Hemoglobin 10.5 g/dL (14.0-18.0); Immature Granulocyte Absolute 0.04 K/mm3 (0.00-0.031); Immature Granulocyte Percent A 0.4 % (0-0.5); Lymphocytes Absolute Auto 1.02 K/mm3 (0.9-3.2); Lymphocytes Percent Auto 10.9 % (18.3-44.2); Mean Corpuscular HGB Conc 32.7 g/dl (32-36); Mean Corpuscular Hemoglobin 30.4 pg (26-34); Mean Platelet Volume 11.1 fl (7.4-10.4); Monocytes Absolute Auto 0.7 K/mm3 (0.1-0.6); Monocytes Percent Auto 7.8 % (2.6-8.5); Neutrophils Absolute Auto 7.4 K/mm3 (1.3-6.7); Neutrophils Percent Auto 79.3 % (45.5-73.1); Platelet Count Result 137 k/mm3 (150-375); Red Blood Count 3.45 M/mm3 (4.6-6.20); White Blood Count 9.4 K/mm3 (4.5-10.0)
[2024-02-22 06:58] LABS: Alanine Aminotransferase 22 U/L (6-50); Albumin Level 2.5 g/dL (3.5-5.1); Alkaline Phosphatase 66 U/L (38-126); Anion Gap 6 mmol/L (4-12); Aspartate Amino Transferase 38 U/L (17-59); Bilirubin,Total 0.7 mg/dL (0.2-1.3); Blood Urea Nitrogen 18 mg/dL (9-20); Calcium 7.9 mg/dL (8.4-10.2); Carbon Dioxide 23 mmol/L (22-30); Chloride 107 mmol/L (98-107); Estimated CRCL calculation 49 ml/min; Estimated Glomerular Filt Rate > 60; Glucose 91 mg/dL (65-110); Potassium 3.9 mmol/L (3.4-5.0); Sodium 136 mmol/L (137-145)
[2024-02-22] MEDS: PANTOPRAZOLE 40 MG TABLET PO ×2 (08:35→20:01)
[2024-02-22] MEDS: ATORVASTATIN 20 MG TABLET PO (08:35)
[2024-02-22] MEDS: APIXABAN 5 MG TABLET PO ×2 (08:35→20:01)
[2024-02-22] MEDS: DONEPEZIL HCL 5 MG TABLET PO (08:35)
[2024-02-22] MEDS: ceFAZolin 2 GM/D5W 50 ML 2 GM/50 ML BAG IVPB ×2 (13:24→23:38)
[2024-02-22 14:00] VITALS: BP 121/73; PULSE 70; RESP 24; TEMP 36.3; O2SAT 98
--- NOTE | 2024-02-22 14:16 | PM.IMPN ---
Progress Note: A&P Assessment and Plan (1) Fever: Code(s): R50.9 - Fever, unspecified Status: Acute (2) Altered mental status: Qualifiers: Altered mental status type: delirium Qualified Code(s): R41.0 - Disorientation, unspecified Code(s): R41.82 - Altered mental status, unspecified Status: Acute (3) Essential (primary) hypertension: Code(s): I10 - Essential (primary) hypertension Status: Acute (4) Dementia: Code(s): F03.90 - Unspecified dementia, unspecified severity, without behavioral disturbance, psychotic disturbance, mood disturbance, and anxiety Status: Acute (5) Dystonia: Code(s): G24.9 - Dystonia, unspecified Status: Acute Plan This is an 83-year-old male who presented to the ED with altered mental status and frequent falls over the past 3 days. On arrival to the ED he was hypotensive at 94/60 with temperature of 103.1?. He received IV fluid resuscitation and was started on broad-spectrum antibiotics. Laboratory workup showed CBC with leukocytosis of 14.4 hemoglobin 12.9 platelet was 159. CRP elevated at 17 TSH normal lactate mildly elevated at 2.1. Urinalysis showed rbc's and trace leukocyte esterase but no WBC. UDS any Thal alcohol level was negative. COVID flu swab and RSV swab was negative. EKG showed electronic ventricular pacemaker with a rate of 71 beats per minute. Troponin was undetectable. CT scan of the head showed no acute intracranial process. CT cervical spine showed multilevel grade 1 anterolisthesis at C6-C7 through T1-T2 on a degenerative basis. Mild anterior wedging deformity T1-T2 which is likely chronic. Chest x-ray with no acute cardiopulmonary process. ABG showed 7.509/27/74/21 consistent with respiratory alkalosis with compensatory metabolic alkalosis. Chest abdomen pelvis CT was done which showed small bilateral pleural effusion mild esophagitis/ gastritis and cystitis versus bladder wall thickening from chronic outlet obstruction. repeat lactic acid was normal with resuscitation Mild cellulitis the chest wall noted which could be the potential source. Continue antibiotics as ordered With vancomycin and Zosyn. unclear source of infection. His blood culture came back positive for Gram-positive cocci in clusters. Will stop Zosyn and start Ancef for possible MSSA until finalization. Repeat blood culture in a.m.. Skin infection could be potential source. Will get echocardiogram today. If persistent bacteremia may need JOSEPH evaluation Hypotension: Still mildly hypotensive and will hold blood pressure medication. Unintentional weight loss of 30 lb over past 3 months reported by recurrent falls PT OT to see leukocytosis Recheck labs and monitor leukocytosis. Gastritis/esophagitis add PPI Dementia History of dystonia Hypertension Hyperlipidemia History of pacemaker placement Chronic anticoagulation with Eliquis DVT prophylaxis Code status full code Subjective Date/time seen: 02/22/24 14:16 Interval history: He feels better. Remains afebrile. soreness in the chest recently happened. No nausea vomiting. Review of Systems Review of Systems: All systems reviewed & are unremarkable except as noted in HPI and below Exam Narrative: GENERAL: Elderly, confused, following commands, NAD HEAD: Normocephalic, atraumatic. EYES: PERRLA and EOMI. CHEST: Clear to auscultation. No respiratory distress. tenderness to right chest wall with no crepitus, step-offs or deformities. pacemaker in place to the right chest wall. HEART: Regular rate and rhythm. No murmur heard. Normal peripheral pulses. ABDOMEN: Soft, nontender, nondistended, normal active bowel sounds. EXTREMITIES: Normal range of motion. No edema. SKIN: What appears to be an epidermal inclusion cyst to the sternum with surrounding warmth and blanching erythema, no fluctuance or induration, spontaneous drainage, no crepitus NEURO: No focal deficits. A
[2024-02-22 18:46] LABS: Vancomycin Trough 8.7 ug/mL (10.0-20.0)
[2024-02-22] MEDS: VANCOMYCIN 1,500 MG/NS 500 ML 1,500 MG/500 ML BAG 250 MG IVPB (20:00)
[2024-02-22 21:10] VITALS: BP 131/80; PULSE 72; RESP 16; TEMP 36.6; O2SAT 98
[2024-02-23 04:50] VITALS: BP 141/82; PULSE 70; RESP 18; TEMP 36.2; O2SAT 98
[2024-02-23] MEDS: ceFAZolin 2 GM/D5W 50 ML 2 GM/50 ML BAG IVPB ×2 (05:05→12:59)
[2024-02-23 06:34] LABS: Basophils Percent Auto 0.2 % (0.2-1.2); Eosinophils Absolute Auto 0.1 K/mm3 (0-0.3); Eosinophils Percent Auto 1.4 % (0-4.4); Hematocrit 35.3 % (42.0-52.0); Hemoglobin 11.5 g/dL (14.0-18.0); Immature Granulocyte Absolute 0.03 K/mm3 (0.00-0.031); Immature Granulocyte Percent A 0.3 % (0-0.5); Lymphocytes Absolute Auto 1.09 K/mm3 (0.9-3.2); Lymphocytes Percent Auto 12.5 % (18.3-44.2); Mean Corpuscular HGB Conc 32.6 g/dl (32-36); Mean Corpuscular Hemoglobin 30.2 pg (26-34); Mean Corpuscular Volume 92.7 fl (80-100); Monocytes Absolute Auto 0.8 K/mm3 (0.1-0.6); Monocytes Percent Auto 8.8 % (2.6-8.5); Neutrophils Absolute Auto 6.7 K/mm3 (1.3-6.7); Neutrophils Percent Auto 76.8 % (45.5-73.1); Platelet Count Result 154 k/mm3 (150-375); Red Blood Count 3.81 M/mm3 (4.6-6.20); White Blood Count 8.7 K/mm3 (4.5-10.0)
[2024-02-23 06:42] LABS: Potassium 3.9 mmol/L (3.4-5.0)
[2024-02-23 06:45] LABS: Alanine Aminotransferase 25 U/L (6-50); Alkaline Phosphatase 88 U/L (38-126); Anion Gap 7 mmol/L (4-12); Aspartate Amino Transferase 43 U/L (17-59); Bilirubin,Total 0.4 mg/dL (0.2-1.3); Blood Urea Nitrogen 16 mg/dL (9-20); Calcium 8.5 mg/dL (8.4-10.2); Carbon Dioxide 23 mmol/L (22-30); Chloride 107 mmol/L (98-107); Estimated CRCL calculation 60 ml/min; Estimated Glomerular Filt Rate > 60; Glucose 132 mg/dL (65-110); Magnesium 2.2 mg/dL (1.6-2.3); Sodium 137 mmol/L (137-145)
[2024-02-23] MEDS: APIXABAN 5 MG TABLET PO ×2 (07:45→20:40)
[2024-02-23] MEDS: DONEPEZIL HCL 5 MG TABLET PO (07:45)
[2024-02-23] MEDS: ATORVASTATIN 20 MG TABLET PO (07:45)
[2024-02-23] MEDS: VANCOMYCIN 1,500 MG/NS 500 ML 1,500 MG/500 ML BAG 250 MG IVPB (07:45)
[2024-02-23] MEDS: PANTOPRAZOLE 40 MG TABLET PO ×2 (07:45→20:40)
[2024-02-23 14:00] VITALS: BP 110/57; PULSE 70; RESP 22; TEMP 36.1; O2SAT 100
--- NOTE | 2024-02-23 14:47 | PM.IMPN ---
Progress Note: A&P Assessment and Plan (1) Sepsis: Qualifiers: Sepsis acute organ dysfunction status: without acute organ dysfunction Sepsis type: sepsis due to unspecified organism Qualified Code(s): A41.9 - Sepsis, unspecified organism Code(s): A41.9 - Sepsis, unspecified organism Status: Acute (2) Hypotension: Code(s): I95.9 - Hypotension, unspecified Status: Acute (3) Cellulitis: Qualifiers: Site of cellulitis: trunk Site of cellulitis of trunk: chest wall Qualified Code(s): L03.313 - Cellulitis of chest wall Code(s): L03.90 - Cellulitis, unspecified Status: Acute (4) Fever: Code(s): R50.9 - Fever, unspecified Status: Acute (5) Altered mental status: Qualifiers: Altered mental status type: delirium Qualified Code(s): R41.0 - Disorientation, unspecified Code(s): R41.82 - Altered mental status, unspecified Status: Acute (6) Essential (primary) hypertension: Code(s): I10 - Essential (primary) hypertension Status: Acute (7) Dementia: Code(s): F03.90 - Unspecified dementia, unspecified severity, without behavioral disturbance, psychotic disturbance, mood disturbance, and anxiety Status: Acute (8) Dystonia: Code(s): G24.9 - Dystonia, unspecified Status: Acute Plan HPI - This is an 83-year-old male who presented to the ED with altered mental status and frequent falls over the past 3 days. ED - On arrival to the ED he was hypotensive at 94/60 with temperature of 103.1?. He received IV fluid resuscitation and was started on broad-spectrum antibiotics. Laboratory workup showed leukocytosis of 14.4 hemoglobin 12.9 platelet was 159. CRP elevated at 17. TSH normal. lactate mildly elevated at 2.1. Urinalysis showed rbc's and trace leukocyte esterase but no WBC. UDS negative. Ethyl alcohol level was negative. COVID flu and RSV swab was negative. EKG showed electronic ventricular pacemaker with a rate of 71 beats per minute. Troponin was undetectable. CT scan of the head showed no acute intracranial process. CT cervical spine showed multilevel grade 1 anterolisthesis at C6-C7 through T1-T2 on a degenerative basis. Mild anterior wedging deformity T1-T2 which is likely chronic. Chest x-ray with no acute cardiopulmonary process. ABG showed 7.509/27/74/21 consistent with respiratory alkalosis with compensatory metabolic alkalosis. Chest abdomen pelvis CT was done which showed small bilateral pleural effusion mild esophagitis/ gastritis and cystitis versus bladder wall thickening from chronic outlet obstruction. repeat lactic acid was normal with resuscitation Hosp Coarse - Mild cellulitis noted on admission and felt could be the potential source. His blood culture came back positive for MRSA. Was on Zosyn and Vanco but changed to Ancef and Vanco until finalization. Repeat blood culture ordered. Echo showing EF 50-55%, normal diastolic function, and severe biatrial enlargement. No infectious vegetations noted. If persistent bacteremia may need JOSEPH evaluation. Plan for discharge on IV abx. Hypotension: Still mildly hypotensive but better. Continue to hold blood pressure medication. Unintentional weight loss of 30 lb over past 3 months reported by Recurrent falls PT OT to see Leukocytosis - Related to sepsis and resolved Gastritis/esophagitis PPI added Dementia History of dystonia Hypertension Hyperlipidemia History of pacemaker placement Chronic anticoagulation with Eliquis DVT prophylaxis Code status full code Subjective Date/time seen: 02/23/24 14:47 Interval history: 83yo male with dementia and HTN here for altered mental status. Assuming care. Chart reviewed. Patient is alert but confused. His is at bedside. She states patient fell about a month ago injuring his sternum. There is some erythema that she treated with Neosporin. Condition improved initially but th
[2024-02-23 20:00] VITALS: PULSE 70; RESP 18; O2SAT 100
[2024-02-23 20:20] LABS: Vancomycin Trough 16.9 ug/mL (10.0-20.0)
[2024-02-23] MEDS: VANCOMYCIN 1,500 MG/NS 500 ML 1,500 MG/500 ML BAG 125 MG IVPB (20:40)
[2024-02-23] MEDS: ACETAMINOPHEN 325 MG TABLET 650 MG PO (20:40)
[2024-02-23 21:12] VITALS: BP 137/83; PULSE 70; RESP 18; TEMP 36.6; O2SAT 100
[2024-02-24 05:39] VITALS: BP 132/80; PULSE 70; RESP 18; TEMP 36.4; O2SAT 97
[2024-02-24 07:00] LABS: Basophils Percent Auto 0.3 % (0.2-1.2); Eosinophils Absolute Auto 0.2 K/mm3 (0-0.3); Eosinophils Percent Auto 2.6 % (0-4.4); Hematocrit 33.7 % (42.0-52.0); Hemoglobin 10.8 g/dL (14.0-18.0); Immature Granulocyte Absolute 0.04 K/mm3 (0.00-0.031); Immature Granulocyte Percent A 0.6 % (0-0.5); Lymphocytes Absolute Auto 1.14 K/mm3 (0.9-3.2); Lymphocytes Percent Auto 17.4 % (18.3-44.2); Mean Corpuscular Hemoglobin 29.4 pg (26-34); Mean Corpuscular Volume 91.8 fl (80-100); Mean Platelet Volume 10.8 fl (7.4-10.4); Monocytes Absolute Auto 0.6 K/mm3 (0.1-0.6); Monocytes Percent Auto 9.8 % (2.6-8.5); Neutrophils Absolute Auto 4.6 K/mm3 (1.3-6.7); Neutrophils Percent Auto 69.3 % (45.5-73.1); Platelet Count Result 159 k/mm3 (150-375); Red Blood Count 3.67 M/mm3 (4.6-6.20); White Blood Count 6.6 K/mm3 (4.5-10.0)
[2024-02-24 07:10] LABS: Albumin Level 2.8 g/dL (3.5-5.1); Anion Gap 4 mmol/L (4-12); Blood Urea Nitrogen 12 mg/dL (9-20); Calcium 8.4 mg/dL (8.4-10.2); Carbon Dioxide 25 mmol/L (22-30); Chloride 110 mmol/L (98-107); Estimated CRCL calculation 60 ml/min; Estimated Glomerular Filt Rate > 60; Glucose 84 mg/dL (65-110); Phosphorus 3.4 mg/dL (2.5-4.5); Potassium 3.9 mmol/L (3.4-5.0); Sodium 139 mmol/L (137-145)
[2024-02-24 08:00] VITALS: O2SAT 97
[2024-02-24] MEDS: PANTOPRAZOLE 40 MG TABLET PO ×2 (08:22→21:59)
[2024-02-24] MEDS: DONEPEZIL HCL 5 MG TABLET PO (08:22)
[2024-02-24] MEDS: APIXABAN 5 MG TABLET PO ×2 (08:22→21:58)
[2024-02-24] MEDS: ATORVASTATIN 20 MG TABLET PO (08:22)
[2024-02-24 12:54] LABS: PSA, Free 0.7 ng/mL; PSA, Total 2.3 ng/mL (< OR = 4.0); Percent Free Prostate Spec Ag 30 % (calc) (>25)
[2024-02-24 14:00] VITALS: BP 126/79; PULSE 70; RESP 20; TEMP 36.6; O2SAT 100
[2024-02-24] MEDS: VANCOMYCIN 1,500 MG/NS 500 ML 1,500 MG/500 ML BAG 200 MG IVPB (14:19)
--- NOTE | 2024-02-24 16:49 | PM.IMPN ---
Progress Note: A&P Assessment and Plan (1) Sepsis: Qualifiers: Sepsis acute organ dysfunction status: without acute organ dysfunction Sepsis type: sepsis due to unspecified organism Qualified Code(s): A41.9 - Sepsis, unspecified organism Code(s): A41.9 - Sepsis, unspecified organism Status: Acute (2) Hypotension: Code(s): I95.9 - Hypotension, unspecified Status: Acute (3) Cellulitis: Qualifiers: Site of cellulitis: trunk Site of cellulitis of trunk: chest wall Qualified Code(s): L03.313 - Cellulitis of chest wall Code(s): L03.90 - Cellulitis, unspecified Status: Acute (4) Fever: Code(s): R50.9 - Fever, unspecified Status: Acute (5) Altered mental status: Qualifiers: Altered mental status type: delirium Qualified Code(s): R41.0 - Disorientation, unspecified Code(s): R41.82 - Altered mental status, unspecified Status: Acute (6) Essential (primary) hypertension: Code(s): I10 - Essential (primary) hypertension Status: Acute (7) Dementia: Code(s): F03.90 - Unspecified dementia, unspecified severity, without behavioral disturbance, psychotic disturbance, mood disturbance, and anxiety Status: Acute (8) Dystonia: Code(s): G24.9 - Dystonia, unspecified Status: Acute Plan HPI - This is an 83-year-old male who presented to the ED with altered mental status and frequent falls over the past 3 days. ED - On arrival to the ED he was hypotensive at 94/60 with temperature of 103.1?. He received IV fluid resuscitation and was started on broad-spectrum antibiotics. Laboratory workup showed leukocytosis of 14.4 hemoglobin 12.9 platelet was 159. CRP elevated at 17. TSH normal. lactate mildly elevated at 2.1. Urinalysis showed rbc's and trace leukocyte esterase but no WBC. UDS negative. Ethyl alcohol level was negative. COVID flu and RSV swab was negative. EKG showed electronic ventricular pacemaker with a rate of 71 beats per minute. Troponin was undetectable. CT scan of the head showed no acute intracranial process. CT cervical spine showed multilevel grade 1 anterolisthesis at C6-C7 through T1-T2 on a degenerative basis. Mild anterior wedging deformity T1-T2 which is likely chronic. Chest x-ray with no acute cardiopulmonary process. ABG showed 7.509/27/74/21 consistent with respiratory alkalosis with compensatory metabolic alkalosis. Chest abdomen pelvis CT was done which showed small bilateral pleural effusion mild esophagitis/ gastritis and cystitis versus bladder wall thickening from chronic outlet obstruction. repeat lactic acid was normal with resuscitation Hosp Coarse - Chest wall cellulitis noted on admission and felt could be the potential source. His blood culture came back positive for MRSA. Was on Zosyn and Vanco but changed to Ancef and Vanco until finalization. Changed just to Vanco. Repeat blood culture ordered. Echo showing EF 50-55%, normal diastolic function, and severe biatrial enlargement. No infectious vegetations noted. VIRSTA score is 4 but only due to PM in situ. If BCx remain negative, will place PICC line for home IV abx. Consult Cards for possible JOSEPH. Patient with hypotension early in his admission so his home blood pressure meds held. Hypotensive has resolved. Resume metoprolol and follow Unintentional weight loss of 30 lb over past 3 months reported by Recurrent falls so PT/OT ordered. Leukocytosis - Related to sepsis and resolved Gastritis/esophagitis PPI added Dementia History of dystonia Hypertension Hyperlipidemia History of pacemaker placement DVT prophylaxis - Chronic anticoagulation with Eliquis Code status - full code Subjective Date/time seen: 02/24/24 16:49 Interval history: 83yo male with dementia and HTN here for altered mental status. No CP. No Chest wall pain. No n/v. Eating okay. Slept well. Exam Narrative: AF 97.8 1
[2024-02-24 20:00] VITALS: PULSE 70; RESP 20; O2SAT 93
[2024-02-24 21:11] VITALS: BP 130/82; PULSE 70; RESP 20; TEMP 36.6; O2SAT 93
[2024-02-24 21:58] VITALS: PULSE 70
[2024-02-24] MEDS: METOPROLOL TARTRATE 25 MG TABLET PO (21:58)
[2024-02-24] MEDS: ACETAMINOPHEN 325 MG TABLET 650 MG PO (21:59)
[2024-02-25] VITALS (12 sets, daily range): BP systolic 127–163; BP diastolic 74–93; PULSE 69–80; RESP 14–22; TEMP 36.2–36.7; O2SAT 93–100
--- NOTE | 2024-02-25 | ECHO_ITS ---
Patient Info Name: Tom Garner Age: 83 years : 1940 Gender: Male Ht: 72 in Wt: 156 lbs BSA: 1.89 m2 Heart Rhythm: Paced Exam Date: 02/25/2024 11:06 AM Exam Location: Echo Lab Patient Status: Inpatient Admit Date: 02/21/2024 Staff Ordering Physician: Zaheer Krause MD Steeler: RL Attending Provider: Jovani Uriarte MD Referring Physician: Nelida COWAN; Exam Type: CA echo transesophageal Study Info Indications - SEPSIS Complete two-dimensional, color flow and Doppler transesophageal study is performed. Summary 1. Transesophageal echocardiogram demonstrating mobile infectious vegetations associated with the pacemaker leads that are seen in the right atrium. 2. No evidence of any valvular vegetation. 3. Mild mitral regurgitation. 4. Biatrial dilation. Left Ventricle Left ventricular chamber dimension is normal. Left ventricular systolic function is normal with an ejection fraction by Biplane Method of Discs of Empty. Right Ventricle Right ventricular chamber dimension is normal. Left Atria Left atrial chamber dimension is moderately enlarged. Right Atria Right atrial chamber dimension is moderately enlarged. Linear artifact in the right atrium suggestive of catheter(s), pacemaker lead(s), or ICD lead(s). 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 Pulmonic Valve The pulmonic valve is normal. Mitral Valve The mitral valve has normal leaflets. There is mild mitral valve regurgitation. Tricuspid Valve The tricuspid valve leaflets are normal. Pericardium/Pleural The pericardium appears normal. Inferior Vena Cava Not well visualized inferior vena cava with Empty collapse upon inspiration consistent with Empty right atrial pressure, Empty. Aorta The aortic root size at the sinus of Valsalva is not well visualized. Report Signatures
[2024-02-25 08:25] LABS: Anion Gap 4 mmol/L (4-12); Blood Urea Nitrogen 12 mg/dL (9-20); Calcium 8.4 mg/dL (8.4-10.2); Carbon Dioxide 26 mmol/L (22-30); Chloride 109 mmol/L (98-107); Estimated CRCL calculation 60 ml/min; Estimated Glomerular Filt Rate > 60; Glucose 85 mg/dL (65-110); Sodium 139 mmol/L (137-145)
[2024-02-25] MEDS: ATORVASTATIN 20 MG TABLET PO (09:31)
[2024-02-25] MEDS: APIXABAN 5 MG TABLET PO ×2 (09:31→20:20)
[2024-02-25] MEDS: DONEPEZIL HCL 5 MG TABLET PO (09:31)
[2024-02-25] MEDS: PANTOPRAZOLE 40 MG TABLET PO ×2 (09:32→20:20)
[2024-02-25] MEDS: METOPROLOL TARTRATE 25 MG TABLET PO ×2 (09:34→20:20)
--- NOTE | 2024-02-25 10:13 | PM.CNCAR ---
Assessment and Plan Assessment and plan (1) Fever: Code(s): R50.9 - Fever, unspecified Status: Acute (2) Sepsis: Qualifiers: Sepsis acute organ dysfunction status: without acute organ dysfunction Sepsis type: sepsis due to unspecified organism Qualified Code(s): A41.9 - Sepsis, unspecified organism Code(s): A41.9 - Sepsis, unspecified organism Status: Acute Plan This is an 83-year-old man with history of aortic valve replacement and a pacemaker implant receives his care at [place]. He comes to the hospital with feeling unwell was found to be significantly febrile in the emergency room several days ago and blood cultures have been found to be positive for methicillin-resistant staph. With antibiotics he is being treated with he is improving clinically. Because of his valvular disease and a pacemaker device he should undergo transesophageal echocardiography to examine for visible infectious vegetations. He understands this the procedure was explained to the patient and his we will set this up for a short time later today Zaheer Krause MD [facility] History of Present Illness History of Present Illness Consult date/time: 02/25/24 10:13 Reason For Visit: Sepsis Narrative: This is an 83-year-old man I am seeing today at the request of the hospitalist to arrange for transesophageal echo. The patient is not known to me prior to this encounter this is a very pleasant elderly man who came to the hospital several days ago to the emergency room. He was brought there by his family because he was feeling ill for several days had some generalized weakness some symptoms of altered mental status she denies any recognized fever shaking chills etc.. In the emergency room he was found to be febrile with a temperature of 103? and course along the rest of his evaluation he had blood cultures performed. The blood cultures came back positive for methicillin-resistant staph. He has been placed on appropriate antibiotic therapy he has de for fast and appears to be comfortable in room 307 is visiting with his . The patient has a history of heart disease and is a patient of the Cardiology Department at [facility]. He states that he had a aortic valve replacement done many years ago and has been followed after that for a long time. He presumably has a bioprosthesis since there is no visible valve prosthesis on chest x-ray. He underwent a pacemaker implantation about a year ago according to the patient and his also at [facility] by the vacuum caster. I do not have records of the arrhythmic indication for pacing but the device is being followed by the vacuum caster who implanted the pacemaker device. He had a transthoracic echo done which I interpreted yesterday. The echo does not show any visible valvular vegetations he does have very small amounts of mitral and tricuspid regurgitation but no visible vegetations were seen. Review of Systems Constitutional: Constitutional: Reports fatigue and Reports lethargy Eyes: Eyes: Reports no additional eye complaints ENT: Reports system reviewed and no additional complaints, except as documented Cardiovascular: Cardiovascular: Reports no additional cardiovascular complaints Respiratory: Respiratory: Reports no additional respiratory complaints Gastrointestinal: Gastrointestinal: Reports no additional gastrointestinal complaints Musculoskeletal: Musculoskeletal: Reports back pain Integumentary/Breasts: Skin/Breast: Reports system reviewed and no additional complaints, except as docu Neurologic: Reports system reviewed and no additional complaints, except as documented Endocrine: Endocrine: Reports no additional endocrine complaints Hematologic/Lymphatic: Hematologic/Lymphatic: Reports no additional hematologic/lymphatic complaints Allergic/Immunologic: Allergic/Immunologic: Reports no additional allergic/immunologic complaints PMFSH Past Medical Histor
[2024-02-25 10:27] LABS: Vancomycin Trough 16.5 ug/mL (10.0-20.0)
--- NOTE | 2024-02-25 11:10 | PC.NURSE ---
pt taken off of unit to procedure (JOSEPH).
--- NOTE | 2024-02-25 11:32 | WPDMODSED ---
Moderate Sedation Note-Pt Data Patient Data Diagnosis: Staph bacteremia History of aortic valve replacement and pacemaker implantation Present Complaint: No complaints Procedure to be performed/Plan: Transesophageal echocardiogram Allergies Allergy/AdvReac Type Severity Reaction Status Date / Time No Known Allergies Allergy Verified 02/20/24 21:31 Home Medications Medication Instructions Recorded Confirmed Type apixaban 5 mg tablet (Eliquis) 5 mg PO BID 02/20/24 02/20/24 History atorvastatin 20 mg tablet 20 mg PO DAILY 02/20/24 02/20/24 History donepezil 5 mg tablet 5 mg PO DAILY 02/20/24 02/20/24 History lisinopril 20 mg tablet 20 mg PO DAILY 02/20/24 02/20/24 History metoprolol tartrate 25 mg tablet 25 mg PO HS 02/20/24 02/20/24 History Current Medications: Active Medications Acetaminophen (Acetaminophen 325 Mg Tablet) 650 mg PO Q4H PRN PRN Reason: Mild Pain (1-3) or Fever Last Admin: 02/24/24 21:59 Dose: 650 mg Apixaban (Apixaban 5 Mg Tablet) 5 mg PO Q12HR [facility] Last Admin: 02/25/24 09:31 Dose: 5 mg Atorvastatin Calcium (Atorvastatin 20 Mg Tablet) 20 mg PO DAILY [facility] Last Admin: 02/25/24 09:31 Dose: 20 mg Donepezil HCl (Donepezil Hcl 5 Mg Tablet) 5 mg PO DAILY [facility] Last Admin: 02/25/24 09:31 Dose: 5 mg Vancomycin HCl (Vancomycin 1,500 Mg/Ns 500 Ml) 1,500 mg in 500 mls @ 250 mls/hr IVPB Q18H [facility] Lisinopril (Lisinopril 20 Mg Tablet) 20 mg PO DAILY [facility] Last Admin: 02/21/24 08:27 Dose: Not Given Metoprolol Tartrate (Metoprolol Tartrate 25 Mg Tablet) 25 mg PO Q12HR [facility] Last Admin: 02/25/24 09:34 Dose: 25 mg Pantoprazole Sodium (Pantoprazole 40 Mg Tablet) 40 mg PO Q12HR [facility] Last Admin: 02/25/24 09:32 Dose: 40 mg Sedation/Anesthesia: No previous sedation/anesthesia problems (including family history). COUNT INCLUDES THE [facility] Past Medical History Medical History Essential (primary) hypertension Family History Family History Sibling Malignant neoplasm of prostate Mother Family history of heart disease in male family member before age 55 Father Family history of heart disease in male family member before age 55 Social History Social History Smoking status: Former smoker Alcohol intake: current Do You Feel Safe in your Home?: Yes Lack of Transportation: No Lack of Food: Never True Current Housing: I Have Housing Concerned About Future Housing: No Difficulty Paying Gas/Electric Bills: No Difficulty Paying for Meds: No Currently Unemployed: No Education: High School Diploma/GED Difficulty w/ Childcare or Family Care: No Spiritual care concerns: No Mod Sed Physical Exam Physical Exam Pre Procedural Exam: Normal: Neck, Throat, Airway, Lungs, Heart Size, Heart Rate (Soft systolic murmur at the base no diastolic murmur), Heart Rhythm, Neuro Exam and Extremities and Variation: Appearance (Pleasant elderly man no in no distress) Hours since solid foods: 12 Hours since liquid intake: 12 Mallampati Classification: class II Internal Medicine - PN: Obj Da Vital Signs Vital Signs: Vital Signs - 24 hr 02/24/24 14:00 02/24/24 21:11 02/24/24 21:58 Temperature 36.6 C 36.6 C Pulse Rate 70 70 70 Respiratory Rate 20 20 Blood Pressure 126/79 130/82 Pulse Oximetry 100 93 Oxygen Delivery Fraction of Inspired Oxygen 02/24/24 20:00 02/25/24 06:00 02/25/24 09:25 Temperature 36.2 C L Pulse Rate 70 74 80 Respiratory Rate 20 18 16 Blood Pressure 147/79 H 141/74 H Pulse Oximetry 93 96 95 Oxygen Delivery Room Air Fraction of Inspired Oxygen 21 02/25/24 09:34 02/25/24 09:30 Temperature Pulse Rate 74 Respiratory Rate Blood Pressure Pulse Oximetry Oxygen Delivery Room Air Fraction of Inspired Oxygen Intake/Output Intake/Output: Intake & Output 02/21
--- NOTE | 2024-02-25 11:51 | P.PCNCC_ITS ---
Cardiac Cath Procedure Note Date of procedure:: 02/25/24 Performing physician:: Zaheer Krause MD Indication:: Staph aureus sepsis Previous aortic valve replacement Previous pacemaker implant Brief clinical history:: This is an 83-year-old man with a history of heart disease and previous aortic valve replacement and pacemaker implant done at another facility. He enters this hospital feeling unwell significant fever and blood cultures that per found to be positive for methicillin-resistant staph. With antibiotics his fever has resolved. In this setting esophageal ECHO has been recommended. Transthoracic echo was negative for evidence of vegetation. 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 He had IV access established. Or pharyngeal benzocaine was used for spray and the hypopharynx. Following this he was sedated using fentanyl and Versed as described above. The bite block was placed into position and the JOSEPH probe was advanced into the hypopharynx and then with some challenge into the esophagus. The JOSEPH exam was not performed. Unfortunately during imaging the control on the JOSEPH probe that allows me to rotate the Crystal failed and was fixed in 1 position. Despite this JOSEPH imaging was completed and findings as detailed below. The probe was then withdrawn and patient is recovering from sedation uneventfully. Findings:: The left atrium is unremarkable in appearance the mitral valve leaflets are normal in appearance there is no evidence of infective vegetation on the mitral valve. The left ventricle appears to be normal in dimension and with normal contractility. The aortic valve prosthesis was visualized in short axis view. Because I could not rotate the Crystal imaging of the aortic valve prosthesis was not ideal but there was no vegetation identified. The pacemaker leads were visualized in the right atrium and on 1 of the leads there is clear evidence of infective vegetation associated with the pacemaker lead. The right-sided chamb ers are grossly unremarkable but once again were suboptimally visualized because of the inability to rotate the Crystal. There was no in visualized agitation associated with either the tricuspid or pulmonic valve. Conclusion:: 1. Transesophageal echo study completed demonstrating evidence of infective vegetation associated with the pacemaker lead/leads in the right atrium. 2. No clear-cut evidence of valvular involvement with the vegetation however the JOSEPH was not of ideal quality because of the inability to adjust the position of crystal on the probe in the middle of the procedure. Zaheer Krause MD F[facility]
--- NOTE | 2024-02-25 12:42 | PC.NURSE ---
pt returned to room from JOSEPH.
[2024-02-25] MEDS: VANCOMYCIN 1,500 MG/NS 500 ML 1,500 MG/500 ML BAG 250 MG IVPB (12:45)
--- NOTE | 2024-02-25 15:11 | PM.IMPN ---
Progress Note: A&P Assessment and Plan (1) Endocarditis: Code(s): I38 - Endocarditis, valve unspecified Status: Acute (2) Sepsis: Qualifiers: Sepsis acute organ dysfunction status: without acute organ dysfunction Sepsis type: sepsis due to unspecified organism Qualified Code(s): A41.9 - Sepsis, unspecified organism Code(s): A41.9 - Sepsis, unspecified organism Status: Acute (3) Hypotension: Code(s): I95.9 - Hypotension, unspecified Status: Acute (4) Cellulitis: Qualifiers: Site of cellulitis: trunk Site of cellulitis of trunk: chest wall Qualified Code(s): L03.313 - Cellulitis of chest wall Code(s): L03.90 - Cellulitis, unspecified Status: Acute (5) Fever: Code(s): R50.9 - Fever, unspecified Status: Acute (6) Altered mental status: Qualifiers: Altered mental status type: delirium Qualified Code(s): R41.0 - Disorientation, unspecified Code(s): R41.82 - Altered mental status, unspecified Status: Acute (7) Essential (primary) hypertension: Code(s): I10 - Essential (primary) hypertension Status: Acute (8) Dementia: Code(s): F03.90 - Unspecified dementia, unspecified severity, without behavioral disturbance, psychotic disturbance, mood disturbance, and anxiety Status: Acute (9) Dystonia: Code(s): G24.9 - Dystonia, unspecified Status: Acute (10) Aortic valve disease: Code(s): I35.9 - Nonrheumatic aortic valve disorder, unspecified Status: Acute (11) Pacemaker: Code(s): Z95.0 - Presence of cardiac pacemaker Status: Acute Plan HPI - This is an 83-year-old male who presented to the ED with altered mental status and frequent falls over the past 3 days. ED - On arrival to the ED he was hypotensive at 94/60 with temperature of 103.1?. He received IV fluid resuscitation and was started on broad-spectrum antibiotics. Laboratory workup showed leukocytosis of 14.4 hemoglobin 12.9 platelet was 159. CRP elevated at 17. TSH normal. lactate mildly elevated at 2.1. Urinalysis showed rbc's and trace leukocyte esterase but no WBC. UDS negative. Ethyl alcohol level was negative. COVID flu and RSV swab was negative. EKG showed electronic ventricular pacemaker with a rate of 71 beats per minute. Troponin was undetectable. CT scan of the head showed no acute intracranial process. CT cervical spine showed multilevel grade 1 anterolisthesis at C6-C7 through T1-T2 on a degenerative basis. Mild anterior wedging deformity T1-T2 which is likely chronic. Chest x-ray with no acute cardiopulmonary process. ABG showed 7.509/27/74/21 consistent with respiratory alkalosis with compensatory metabolic alkalosis. Chest abdomen pelvis CT was done which showed small bilateral pleural effusion mild esophagitis/ gastritis and cystitis versus bladder wall thickening from chronic outlet obstruction. repeat lactic acid was normal with resuscitation Hosp Coarse - Chest wall cellulitis noted on admission and felt could be the potential source. His blood culture came back positive for MRSA. Was on Zosyn and Vanco but changed to Ancef and Vanco until finalization. Now changed just to Vanco. Repeat blood culture ordered and are NGTD. Echo showing EF 50-55%, normal diastolic function, and severe biatrial enlargement. No infectious vegetations noted. VIRSTA score is 4 but only due to PM in situ. BCx remaining negative but will hold on PICC line placement. Consulted Cards for JOSEPH which he had after my visit today. JOSEPH showing evidence of infective vegetation associated with the pacemaker lead/leads in the right atrium but no clear-cut evidence of valvular involvement with the vegetation however the JOSEPH was not of ideal quality because of the inability to adjust the position of crystal on the probe in the middle of the procedure. Patient with aortic valve disease s/p AVR with aortic root replacement.
[2024-02-26] MEDS: VANCOMYCIN 1,500 MG/NS 500 ML 1,500 MG/500 ML BAG 125 MG IVPB (05:18)
[2024-02-26 06:00] VITALS: BP 139/68; PULSE 70; RESP 18; TEMP 36.6; O2SAT 95
[2024-02-26 06:22] LABS: Basophils Percent Auto 0.3 % (0.2-1.2); Eosinophils Absolute Auto 0.2 K/mm3 (0-0.3); Eosinophils Percent Auto 2.2 % (0-4.4); Hematocrit 35.4 % (42.0-52.0); Hemoglobin 11.7 g/dL (14.0-18.0); Immature Granulocyte Absolute 0.04 K/mm3 (0.00-0.031); Immature Granulocyte Percent A 0.5 % (0-0.5); Lymphocytes Absolute Auto 1.52 K/mm3 (0.9-3.2); Lymphocytes Percent Auto 17.6 % (18.3-44.2); Mean Corpuscular HGB Conc 33.1 g/dl (32-36); Mean Corpuscular Hemoglobin 30.2 pg (26-34); Mean Corpuscular Volume 91.2 fl (80-100); Mean Platelet Volume 10.3 fl (7.4-10.4); Monocytes Absolute Auto 0.9 K/mm3 (0.1-0.6); Monocytes Percent Auto 9.8 % (2.6-8.5); Neutrophils Percent Auto 69.6 % (45.5-73.1); Platelet Count Result 215 k/mm3 (150-375); Red Blood Count 3.88 M/mm3 (4.6-6.20); Red Cell Distribution Width 12.8 % (11.5-14.5); White Blood Count 8.7 K/mm3 (4.5-10.0)
[2024-02-26 06:39] LABS: Alanine Aminotransferase 42 U/L (6-50); Alkaline Phosphatase 69 U/L (38-126); Anion Gap 5 mmol/L (4-12); Aspartate Amino Transferase 53 U/L (17-59); Bilirubin,Total 0.5 mg/dL (0.2-1.3); Blood Urea Nitrogen 11 mg/dL (9-20); CRP 1.7 mg/dL (<1.0); Calcium 8.4 mg/dL (8.4-10.2); Carbon Dioxide 26 mmol/L (22-30); Chloride 107 mmol/L (98-107); Estimated CRCL calculation 68 ml/min; Estimated Glomerular Filt Rate > 60; Glucose 85 mg/dL (65-110); Potassium 3.8 mmol/L (3.4-5.0); Sodium 138 mmol/L (137-145)
[2024-02-26 09:29] VITALS: PULSE 76
[2024-02-26] MEDS: APIXABAN 5 MG TABLET PO ×2 (09:29→21:10)
[2024-02-26] MEDS: DONEPEZIL HCL 5 MG TABLET PO (09:29)
[2024-02-26] MEDS: PANTOPRAZOLE 40 MG TABLET PO ×2 (09:29→21:10)
[2024-02-26] MEDS: METOPROLOL TARTRATE 25 MG TABLET PO ×2 (09:29→21:10)
[2024-02-26] MEDS: ATORVASTATIN 20 MG TABLET PO (09:29)
[2024-02-26] MEDS: LIDOCAINE HCL 1% PF INJ 5 ML VIAL INFILTRATE (12:10)
[2024-02-26] MEDS: CENTRAL LINE FLUSH 10 ML IV PUSH ×2 (13:10→21:14)
[2024-02-26 14:00] VITALS: BP 138/78; PULSE 70; RESP 18; TEMP 36.5; O2SAT 99
--- NOTE | 2024-02-26 15:19 | P.PN_ITS ---
Progress Note: A&P Assessment and Plan (1) Endocarditis: Code(s): I38 - Endocarditis, valve unspecified Status: Acute (2) Sepsis: Qualifiers: Sepsis acute organ dysfunction status: without acute organ dysfunction Sepsis type: sepsis due to unspecified organism Qualified Code(s): A41.9 - Sepsis, unspecified organism Code(s): A41.9 - Sepsis, unspecified organism Status: Acute (3) Hypotension: Code(s): I95.9 - Hypotension, unspecified Status: Acute (4) Cellulitis: Qualifiers: Site of cellulitis: trunk Site of cellulitis of trunk: chest wall Qualified Code(s): L03.313 - Cellulitis of chest wall Code(s): L03.90 - Cellulitis, unspecified Status: Acute (5) Fever: Code(s): R50.9 - Fever, unspecified Status: Acute (6) Altered mental status: Qualifiers: Altered mental status type: delirium Qualified Code(s): R41.0 - Disorientation, unspecified Code(s): R41.82 - Altered mental status, unspecified Status: Acute (7) Essential (primary) hypertension: Code(s): I10 - Essential (primary) hypertension Status: Acute (8) Dementia: Code(s): F03.90 - Unspecified dementia, unspecified severity, without behavioral disturbance, psychotic disturbance, mood disturbance, and anxiety Status: Acute (9) Dystonia: Code(s): G24.9 - Dystonia, unspecified Status: Acute (10) Aortic valve disease: Code(s): I35.9 - Nonrheumatic aortic valve disorder, unspecified Status: Acute (11) Pacemaker: Code(s): Z95.0 - Presence of cardiac pacemaker Status: Acute Plan HPI - This is an 83-year-old male who presented to the ED with altered mental status and frequent falls over the past 3 days. ED - On arrival to the ED he was hypotensive at 94/60 with temperature of 103.1?. He received IV fluid resuscitation and was started on broad-spectrum antibiotics. Laboratory workup showed leukocytosis of 14.4 hemoglobin 12.9 platelet was 159. CRP elevated at 17. TSH normal. lactate mildly elevated at 2.1. Urinalysis showed rbc's and trace leukocyte esterase but no WBC. UDS negative. Ethyl alcohol level was negative. COVID flu and RSV swab was negative. EKG showed electronic ventricular pacemaker with a rate of 71 beats per minute. Troponin was undetectable. CT scan of the head showed no acute intracranial process. CT cervical spine showed multilevel grade 1 anterolisthesis at C6-C7 through T1-T2 on a degenerative basis. Mild anterior wedging deformity T1-T2 which is likely chronic. Chest x-ray with no acute cardiopulmonary process. ABG showed 7.509/27/74/21 consistent with respiratory alkalosis with compensatory metabolic alkalosis. Chest abdomen pelvis CT was done which showed small bilateral pleural effusion mild esophagitis/ gastritis and cystitis versus bladder wall thickening from chronic outlet obstruction. repeat lactic acid was normal with resuscitation Hosp Coarse - Chest wall cellulitis noted on admission and felt could be the potential source. His blood culture came back positive for MRSA. Was on Zosyn and Vanco but changed to Ancef and Vanco until finalization. Now changed just to Vanco. Repeat blood culture ordered and are NGTD. Echo showing EF 50-55%, normal diastolic function, and severe biatrial enlargement. No infectious vegetations noted. VIRSTA score is 4 but only due to PM in situ. BCx remaining negative but will hold on PICC line placement. Consulted Cards for JOSEPH which he had after my visit today. JOSEPH showing evidence of infective vegetation associated with th
[2024-02-26 21:10] VITALS: BP 149/92; PULSE 70; RESP 16; TEMP 36.8; O2SAT 99
[2024-02-26] MEDS: VANCOMYCIN 1,500 MG/NS 500 ML 1,500 MG/500 ML BAG 200 MG IVPB (22:43)
[2024-02-27 05:45] VITALS: BP 159/81; PULSE 74; RESP 18; TEMP 36.4; O2SAT 97
[2024-02-27] MEDS: CENTRAL LINE FLUSH 20 ML IV PUSH (06:36)
[2024-02-27 06:49] LABS: Hematocrit 32.7 % (42.0-52.0); Mean Corpuscular HGB Conc 33.6 g/dl (32-36); Mean Corpuscular Hemoglobin 30.4 pg (26-34); Mean Corpuscular Volume 90.3 fl (80-100); Mean Platelet Volume 10.3 fl (7.4-10.4); Platelet Count Result 218 k/mm3 (150-375); Red Blood Count 3.62 M/mm3 (4.6-6.20); Red Cell Distribution Width 12.9 % (11.5-14.5); White Blood Count 10.1 K/mm3 (4.5-10.0)
[2024-02-27 07:03] LABS: Anion Gap 6 mmol/L (4-12); Blood Urea Nitrogen 10 mg/dL (9-20); Calcium 8.3 mg/dL (8.4-10.2); Carbon Dioxide 27 mmol/L (22-30); Chloride 106 mmol/L (98-107); Estimated CRCL calculation 60 ml/min; Estimated Glomerular Filt Rate > 60; Glucose 87 mg/dL (65-110); Magnesium 2.1 mg/dL (1.6-2.3); Potassium 3.8 mmol/L (3.4-5.0); Sodium 139 mmol/L (137-145)
[2024-02-27 09:07] VITALS: PULSE 75
[2024-02-27] MEDS: DONEPEZIL HCL 5 MG TABLET PO (09:07)
[2024-02-27] MEDS: PANTOPRAZOLE 40 MG TABLET PO ×2 (09:07→21:24)
[2024-02-27] MEDS: ATORVASTATIN 20 MG TABLET PO (09:07)
[2024-02-27] MEDS: APIXABAN 5 MG TABLET PO ×2 (09:07→21:24)
[2024-02-27] MEDS: METOPROLOL TARTRATE 25 MG TABLET PO ×2 (09:07→21:23)
[2024-02-27] MEDS: CENTRAL LINE FLUSH 10 ML IV PUSH ×3 (09:08→21:24)
[2024-02-27 10:12] VITALS: O2SAT 96
[2024-02-27 14:00] VITALS: BP 125/81; PULSE 86; RESP 18; TEMP 36.6; O2SAT 92
[2024-02-27] MEDS: VANCOMYCIN 1,500 MG/NS 500 ML 1,500 MG/500 ML BAG 200 MG IVPB (17:24)
[2024-02-27 21:22] VITALS: BP 133/75; PULSE 68; RESP 16; TEMP 36.5; O2SAT 96
[2024-02-27 21:23] VITALS: PULSE 68
[2024-02-28] MEDS: CENTRAL LINE FLUSH 10 ML IV PUSH (05:04)
[2024-02-28 05:10] VITALS: BP 139/72; PULSE 70; RESP 14; TEMP 36.5; O2SAT 93
[2024-02-28 06:46] LABS: Hematocrit 33.6 % (42.0-52.0); Mean Corpuscular HGB Conc 32.7 g/dl (32-36); Mean Corpuscular Hemoglobin 30.1 pg (26-34); Mean Corpuscular Volume 92.1 fl (80-100); Mean Platelet Volume 10.3 fl (7.4-10.4); Platelet Count Result 224 k/mm3 (150-375); Red Blood Count 3.65 M/mm3 (4.6-6.20); Red Cell Distribution Width 13.1 % (11.5-14.5); White Blood Count 8.3 K/mm3 (4.5-10.0)
[2024-02-28 06:59] LABS: Potassium 3.9 mmol/L (3.4-5.0)
[2024-02-28 07:02] LABS: Anion Gap 5 mmol/L (4-12); Blood Urea Nitrogen 9 mg/dL (9-20); Calcium 8.2 mg/dL (8.4-10.2); Carbon Dioxide 27 mmol/L (22-30); Chloride 106 mmol/L (98-107); Estimated CRCL calculation 60 ml/min; Estimated Glomerular Filt Rate > 60; Glucose 86 mg/dL (65-110); Magnesium 2.1 mg/dL (1.6-2.3); Sodium 138 mmol/L (137-145)
[2024-02-28] MEDS: PANTOPRAZOLE 40 MG TABLET PO (08:26)
[2024-02-28] MEDS: APIXABAN 5 MG TABLET PO (08:26)
[2024-02-28] MEDS: METOPROLOL TARTRATE 25 MG TABLET PO (08:26)
[2024-02-28] MEDS: ATORVASTATIN 20 MG TABLET PO (08:26)
[2024-02-28 10:42] LABS: Vancomycin Trough 18.1 ug/mL (10.0-20.0)
--- NOTE | 2024-02-28 11:02 | PCNFU ---
Nutrition Follow-Up Complete: Unintentional weight loss related to reduced appetite and intake as evidenced by family report Goal:PO intake 75% of meals and supplements Pt meeting goal, continue with same goal. Pt current nutrition is Heart healthy, Ensure compact BID. Nutrition recommendation: change supplement back to Ensure Enlive BID, chocolate per pt preference. Last recorded weight is 71 kg. Bowel Motility: +BM 02/25 Labs Reviewed: Hgb:11, HCT:33.6, alb:3.0 Meds Noted: Eliquis, protonix Skin: WNL Additional Notes: Pt continues on a heart healthy, intake 75% at this time, soft and bite sized consistency. Changed supplement back to Ensure Enlive chocolate per preference. Encourage po intake. Monitor intake, wt, labs. Follow up in 5 days.
[2024-02-28] MEDS: VANCOMYCIN 2,000 MG/NS 500 ML 2,000 MG/500 ML BAG 250 MG IVPB (11:20)
[2024-02-28] MEDS: DONEPEZIL HCL 5 MG TABLET PO (11:20)
[2024-02-28] MEDS: BISACODYL 5 MG TABLET EC PO (12:04)
--- NOTE | 2024-02-28 12:23 | PM.DS ---
DS: Admitting Diagnosis Discharge Date 02/28/24 Admitting Diagnosis altered mental status DS: Discharge Diagnosis Discharge Diagnosis (1) Endocarditis: Code(s): I38 - Endocarditis, valve unspecified Status: Acute (2) Sepsis: Qualifiers: Sepsis acute organ dysfunction status: without acute organ dysfunction Sepsis type: sepsis due to unspecified organism Qualified Code(s): A41.9 - Sepsis, unspecified organism Code(s): A41.9 - Sepsis, unspecified organism Status: Acute (3) Hypotension: Code(s): I95.9 - Hypotension, unspecified Status: Acute (4) Fever: Code(s): R50.9 - Fever, unspecified Status: Acute (5) Altered mental status: Qualifiers: Altered mental status type: delirium Qualified Code(s): R41.0 - Disorientation, unspecified Code(s): R41.82 - Altered mental status, unspecified Status: Acute (6) Essential (primary) hypertension: Code(s): I10 - Essential (primary) hypertension Status: Acute (7) Dementia: Code(s): F03.90 - Unspecified dementia, unspecified severity, without behavioral disturbance, psychotic disturbance, mood disturbance, and anxiety Status: Acute (8) Dystonia: Code(s): G24.9 - Dystonia, unspecified Status: Acute DS: Summary Hospital Course Hospital Course: JOSEPH showing evidence of infective vegetation associated with the pacemaker lead/leads in the right atrium but no clear-cut evidence of valvular involvement with the vegetation however the JOSEPH was not of ideal quality because of the inability to adjust the position of crystal on the probe in the middle of the procedure. Patient with aortic valve disease s/p AVR with aortic root replacement. Recommendations are for device removal. Will discuss with cardiology. Patient with hypotension early in his admission so his home blood pressure meds held. Hypotensive has resolved. Resumed metoprolol and follow Unintentional weight loss of 30 lb over past 3 months reported by Recurrent falls possibly related to sepsis and/or dystonia; PT/OT ordered. Leukocytosis - Related to sepsis and resolved Gastritis/esophagitis PPI added Dementia Hypertension Patient is pleasantly confused, and today his is present found to have endocarditis with history of pace maker and recent JOSEPH showed possible pace maker leads are infected, blood culture showed MRSA and will need 6 weeks of IV Vancomycin, patient will be seen his EP-calibrator barometers will decide to keep the current pace maker with prophylactic abx or to remove the patient pace maker after patient he has completed IV Vancomycin for six week, patient had PICC line placed on 02/25, today patient is clinically stable, patient has a bed available at a SNF where they will infuse the abx, will discharge patient today. Time Spent with Patient Time attestation: Total time spent providing and/or coordinating discharge services: Exam Narrative: Gen - NARD sitting up in chair Chest - CTA bilaterally. Fading erythema to mid lower chest. Small nodule but nontender. No drainage. CV - RRR S1/S2 Abd - Soft, NT/ND, Positive BS Ext - No pedal edema Psych - Nml mood and affect Skin - Warm and dry. DS: Data Data Completed and Pending Labs on day of discharge: Labs from last 24 hours 02/28/24 02/28/24 09:59 06:33 WBC 8.3 RBC 3.65 L Hgb 11.0 L Hct 33.6 L MCV 92.1 MCH 30.1 MCHC 32.7 RDW 13.1 Plt Count 224 MPV 10.3 Sodium 138 Potassium 3.9 Chloride 106 Carbon Dioxide 27 Anion Gap 5 BUN 9 Creatinine 0.80 Estim Creat Clear Calc 60 Estimated GFR > 60 Glucose 86 Calcium 8.2 L Magnesium 2.1 Vancomycin Trough 18.1 Discharge Plan Discharge Attending physician on discharge: Jovani Uriarte V. Consulting providers: Zaheer Krause; Toy Wellington; Dmoinic Thomason; Arie Martinez; Yariel Varghese; Rakan Sung V.
[2024-02-28 13:11] LABS: Influenza A QL RT-PCR Negative (Negative); Influenza B QL RT-PCR Negative (Negative); SARS-CoV-2 RNA PCR Negative (Negative)
--- NOTE | 2024-02-28 13:44 | PC.NURSE ---
Attempted to call Kaye Ceja for report at [phone]
--- NOTE | 2024-02-28 14:34 | PC.NURSE ---
Report attempted again @ 2243. Will add patient to EMS list, will call facility again
--- NOTE | 2024-02-28 14:52 | PC.NURSE ---
report called to Yessy PEREZ at [phone]
--- NOTE | 2024-02-28 21:05 | PC.NURSE ---
At 2049 Received a call from the prior patient?s of [phone] (Tom Garner) was D/C earlier in the day. Patients stated that the SNF [facility] did not have any of their ABX, they are all on backorder and wanted to know what to do. Instructed she needs to clarify with the facility at this time as they are taking care of her . continued to express she wants him to go to the [facility]. Again, it was expressed she would need to speak to the facility as they are in care of her . Barrel Rifler Operator Brayden made aware of conversation as well.
== END 2024-02-28 15:07 | DRG 314 ==
LOC: ANHED 17:20 → ANH3MEDSUR 20:34
PROVIDERS: Internal Medicine; Specialist; Admitting Provider Internal Medicine; Emergency Provider Physician Assistant; PCP Internal Medicine; Visit Provider Family Medicine
PROC: B245ZZ4 Ultrasonography of Left Heart, Transesophageal (ICD-10-PCS; CPT 93312; principal; 2024-02-25 13:00)
DX: T82.7XXA Infection and inflammatory reaction due to other cardiac and vascular devices, implants and grafts, initial encounter (principal); A41.02 Sepsis due to Methicillin resistant Staphylococcus aureus; L03.313 Cellulitis of chest wall; I10 Essential (primary) hypertension; E78.5 Hyperlipidemia, unspecified; G24.9 Dystonia, unspecified; R29.6 Repeated falls; F03.90 Unspecified dementia, unspecified severity, without behavioral disturbance, psychotic disturbance, mood disturbance, and anxiety; Z20.822 Contact with and (suspected) exposure to COVID-19; Z11.52 Encounter for screening for COVID-19; Z95.0 Presence of cardiac pacemaker; Z79.01 Long term (current) use of anticoagulants; Z95.4 Presence of other heart-valve replacement
CPT/HCPCS: 36415; 36569; 36600; 70450; 71046; 71260; 72125; 74018; 74177; 80048; 80053; 80069; 80202; 80307; 81001; 82077; 82550; 82565; 82805; 83605; 83690; 83735; 84153; 84154; 84443; 84484; 85018; 85025; 85027; 85055; 85610; 85730; 86140; 87040; 87181; 87636; 87637; 93005; 93306; 93312; 93320; 93325; 96365; 96366; 96367; 97161; 97165; 99285; A9270; G0378; J0690; J2003; J2250; J2543; J2704; J3010; J3370; J7030; J7040; J7120; Q9967

== ENCOUNTER 2024-05-04 15:28 | Inpatient (IN) | payer MEDICARE, SELFPAY ==
[2024-05-04] VITALS (16 sets, daily range): BP systolic 93–123; BP diastolic 53–93; PULSE 58–73; RESP 15–25; TEMP 36.6–37.7; O2SAT 93–100; BMI 21.8
--- NOTE | ~2024-05-04 | XR_ITS ---
EXAMINATION: XR chest 1V portable DATE: 05/04/2024 17:01 INDICATION: Altered mental status. Fever. TECHNIQUE: A single frontal view of the chest was obtained. COMPARISON: Chest single view 02/26/2024, chest CT 02/20/2024 FINDINGS: There are airspace opacities in the lower lung zones. No pleural effusion or pneumothorax. The heart size is normal. Median sternotomy wires and mediastinal surgical clips are seen, likely fro m prior coronary artery bypass grafting. There is a left chest wall pacer with leads in the right atr ium and right ventricle. IMPRESSION: 1. Airspace opacities in the lower lung zones, consistent with atelectasis versus pneumonia. Reviewed, dictated and finalized at location A. O OPHTHALMOLOGIST IMPRESSION: 1. Airspace opacities in the lower lung zones, consistent with atelectasis vers us pneumonia.
--- NOTE | ~2024-05-04 | CT_ITS ---
EXAMINATION: CT chest abdomen pelvis w con DATE: 05/06/2024 15:20 INDICATION: Bacteremia TECHNIQUE: Computed tomography (CT) of the chest, abdomen, and pelvis was performed with 100 CC Omnip aque 350 intravenous contrast. Automated exposure control and iterative reconstruction technique were employed. Exam dose: 998.59 mGy-cm total exam DLP. COMPARISON: 05/04/2024 portable AP chest 02/20/2024 CT chest abdomen pelvis FINDINGS: CHEST CT: Status post sternotomy. Heart size is within normal range. No pericardial effusion. Mild posterior aortic arch thoracic aortic aneurysm, measuring up to 3.6 cm diameter. No thoracic aor tic dissection. No pericardial effusion. Left-sided transvenous pacemaker device with leads in right atrium and right ventricular apex. Moderate bilateral pleural effusions considerably increased since 02/20/2024. There is associated prom inent bilateral dependent lower lobe compressive atelectasis. There is mild dependent atelectasis of the lingula and middle lobe. ABDOMEN/PELVIS CT: Large concentrically calcified gallstone in the gallbladder fundus, measuring up to 2.5 x 3.4 cm dime nsion. No apparent gallbladder wall thickening. There is mild pericholecystic fluid. No bile duct or pancreatic duct dilatation. No space-occupying mass lesion of the liver, spleen, pancreas, and adrenal glands or kidneys is evide nt. There is atherosclerotic calcification but normal caliber of the abdominal aorta. There is calcificat ion of the origins of the celiac, superior mesenteric and renal arteries as well as inferior mesenter ic artery. No intraperitoneal or retroperitoneal or pelvic mass lesion or adenopathy or ascites is no akin. There is a Valdez catheter within the urinary bladder. There is diffuse thickening urinary bladder wal l, which may be due to prostatomegaly; cystitis is not excluded. There are in numerable diverticula of the sigmoid colon as well as diverticulosis of the descending c olon no bowel obstruction or intraperitoneal free air is detected. Small fat-containing umbilical hernia. There is mild interval enlargement of right paratracheal and aortopulmonary window nodes since 024, likely reactive. Severe degenerative disease in the lower cervical spine. Diffuse idiopathic skeletal hyperostosis and kyphosis of the thoracic spine. Chronic cupping of the superior vertebral endplate of L3. Severe degenerative disease at L4-5 and L5-S1. No suspicious osteolytic or osteoblastic lesions are noted. 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 Reviewed, dictated and finalized at location A. 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
--- NOTE | ~2024-05-04 | XR_ITS ---
EXAMINATION: XR chest 1V portable DATE: 05/08/2024 06:00 INDICATION: Pneumonia. TECHNIQUE: A single frontal view of the chest was obtained. COMPARISON: Chest single view 05/04/2024, chest CT 05/06/2024 FINDINGS: There are small pleural effusions. There is a diffuse interstitial pattern in the lungs. Th ere are airspace opacities in right mid and lower lung zones. No pneumothorax. Cardiomegaly is noted. Median sternotomy wires and mediastinal surgical clips are seen, likely from prior coronary artery b ypass grafting. There is a left chest wall pacer with leads in the right atrium and right ventricle. IMPRESSION: 1. Worsened diffuse lung disease, right worse than left, consistent with pulmonary edema versus pneum onia. 2. Small pleural effusions. 3. Cardiomegaly. Reviewed, dictated and finalized at location A. ESSING ANALYST IMPRESSION: 1. Worsened diffuse lung disease, right worse than left, consistent with pulmon paramjit edema versus pneumonia. 2. Small pleural effusions. 3. Cardiomegaly.
--- NOTE | ~2024-05-04 | XR_ITS ---
EXAMINATION: XR chest 2V DATE: 05/12/2024 09:57 INDICATION: Pneumonia TECHNIQUE: frontal and lateral views of the chest were obtained. COMPARISON: Chest radiograph dated 05/08/2024 FINDINGS: Skinfold projects of the lateral right lung. Opacities in the dependent lower lungs with blunting at the posterior sulci consistent with small bilateral pleural effusions with associated basilar atelect asis or pneumonia. No pneumothorax. Cardiomegaly. Median sternotomy wires and mediastinal surgical cl ips are seen, likely from prior coronary artery bypass grafting. Dual lead pacemaker seen with leads projecting over the expected locations of the right atrium and right ventricle. Couple old anterior r ight rib fractures. IMPRESSION: 1. Small bilateral pleural effusions with associated bibasilar atelectasis and/or pneumonia. Reviewed, dictated and finalized at location B. ULSION MOTOR AND GENERATOR REPAIRER IMPRESSION: 1. Small bilateral pleural effusions with associated bibasilar atelectasis and/ or pneumonia.
--- NOTE | ~2024-05-04 | CT_ITS ---
EXAMINATION: CT brain wo con DATE: 05/05/2024 10:37 INDICATION: Altered mental status TECHNIQUE: Computed tomography (CT) of the head was performed without intravenous contrast. Sagittal and coronal reconstructions were performed. The mA was adjusted according to patient size. Iterative reconstruction technique was employed. The dose-length product was 681.00 mGy-cm. COMPARISON: head CT dated 02/20/2024 FINDINGS: No acute intracranial hemorrhage, acute infarction or abnormal extra axial fluid collection. There is mild scattered white matter hypoattenuation consistent with chronic small vessel ischemic disease. S ymmetric prominence of the sulci and ventricles consistent with moderateage-appropriate diffuse cereb ral volume loss. Ventricles are normal and symmetric. No mass/mass effect. The orbits and mastoid air cells are normal. Mild mucosal thickening the paranasal sinuses. IMPRESSION: 1. No acute intracranial process. 2. Stable age-related changes including moderate diffuse volume loss and mild scattered white matter hypoattenuation consistent with chronic small vessel ischemic disease. Reviewed, dictated and finalized at location A. AL INSPECTOR IMPRESSION: 1. No acute intracranial process. 2. Stable age-related changes including moderate diffuse volume loss and mild s cattered white matter hypoattenuation consistent with chronic small vessel isch emic disease.
--- NOTE | 2024-05-04 16:00 | ECG_ITS ---
Test Date: 2024-05-04 16:05:10 Measurements Intervals [place] Rate: 64 P: 191 MD: 192 QRS: -59 QRSD: 132 T: -9 QT: 453 QTc: 469 Interpretive Statements ATRIAL FIBRILLATION LEFT AXIS DEVIATION [QRS AXIS < -30] INTRAVENTRICULAR CONDUCTION DELAY [130+ ms QRS DURATION] Compared to ECG 02/20/2024 16:29:05 VENTRICULAR PACED COMPLEXES NOT PRESENT Electronically Signed On 05-05-2024 12:00:03 EMULSIFICATION OPERATOR by Meek Medeiros M.D.
[2024-05-04] MEDS: ACETAMINOPHEN 500 MG TABLET 1000 MG (16:09)
[2024-05-04 16:10] LABS: Basophils Percent Auto 0.2 % (0.2-1.2); Hematocrit 33.5 % (42.0-52.0); Hemoglobin 10.5 g/dL (14.0-18.0); Immature Granulocyte Absolute 0.12 K/mm3 (0.00-0.031); Immature Granulocyte Percent A 0.7 % (0-0.5); Immature Platelet Fraction Pct 4.6 % (0.9-11.2); Lymphocytes Absolute Auto 0.41 K/mm3 (0.9-3.2); Lymphocytes Percent Auto 2.5 % (18.3-44.2); Mean Corpuscular HGB Conc 31.3 g/dl (32-36); Mean Corpuscular Hemoglobin 28.2 pg (26-34); Mean Corpuscular Volume 90.1 fl (80-100); Mean Platelet Volume 11.6 fl (7.4-10.4); Monocytes Absolute Auto 0.5 K/mm3 (0.1-0.6); Monocytes Percent Auto 2.7 % (2.6-8.5); Neutrophils Absolute Auto 15.5 K/mm3 (1.3-6.7); Neutrophils Percent Auto 93.9 % (45.5-73.1); Platelet Count Result 100 k/mm3 (150-375); Red Blood Count 3.72 M/mm3 (4.6-6.20); Red Cell Distribution Width 15.6 % (11.5-14.5); White Blood Count 16.5 K/mm3 (4.5-10.0)
[2024-05-04] MEDS: SODIUM CHLORIDE 0.9% IV 1,000 ML 999 ML (16:10)
[2024-05-04 16:21] LABS: Lactic Acid Reflex 3.7 mmol/L (0.7-2.0)
[2024-05-04 16:23] LABS: Alanine Aminotransferase 14 U/L (6-50); Albumin Level 3.5 g/dL (3.5-5.1); Alkaline Phosphatase 58 U/L (38-126); Anion Gap 6 mmol/L (4-12); Aspartate Amino Transferase 24 U/L (17-59); Bilirubin,Total 0.8 mg/dL (0.2-1.3); Blood Urea Nitrogen 22 mg/dL (9-20); Carbon Dioxide 24 mmol/L (22-30); Chloride 109 mmol/L (98-107); Estimated CRCL calculation 37 ml/min; Estimated Glomerular Filt Rate 53; Glucose 113 mg/dL (65-110); Sodium 139 mmol/L (137-145)
--- NOTE | 2024-05-04 16:32 | PC.NURSE ---
per EDP isela Dial to give pt 1l NS and 1g Tylenol PO
[2024-05-04 16:40] LABS: Platelet Estimate Slightly Decreased (Adequate)
[2024-05-04 16:44] LABS: INR 1.6; Prothrombin Time 19.9 Seconds (11.1-14.7)
[2024-05-04 16:45] LABS: Partial Thromboplastin Time 37.6 Seconds (22.3-36.8)
[2024-05-04 16:45] LABS: Hypochromasia 1+
[2024-05-04 16:46] LABS: Anisocytosis 1+; Burr Cells 1+
[2024-05-04 16:47] LABS: Acanthocytes 1+; Schistocytes Rare
[2024-05-04] MEDS: SODIUM CHLORIDE 0.9% IV 1,000 ML 999 ML IV CONT ×2 (17:01→18:27)
[2024-05-04] MEDS: SODIUM CHLORIDE 0.9% IV 300 ML 999 ML IV CONT (17:02)
[2024-05-04 17:19] LABS: Add Urine Microscopic? YES; Appearance Urine Cloudy (Clear); Bacteria Urine None Seen /hpf; Bilirubin Urine 1+ (Negative); Blood Urine Negative (Negative); Color Urine Dark Yellow (Yellow); Glucose Urine UA Negative (Negative); Ketones Urine 1+ mg/dL (Negative); Leukocyte Esterase Ur Trace LEU/UL (Negative); Need Manual Microscopic Reviewed; Nitrate Urine Negative (Negative); Non Pathogenic Casts 0-2; Protein Urine 2+ mg/dL (Negative); Specific Grav Ur 1.028 (1.001-1.035); Squamous Epithelial Cell Urine Occasional /hpf (Few); pH Urine 5.5 (5.0-9.0)
--- NOTE | 2024-05-04 17:50 | ED_ITS ---
HPI - General Adult General Chief complaint: Altered Mental Status Stated complaint: Altered mental status Time Seen by Provider: 05/04/24 16:34 History of Present Illness HPI narrative: Patient is an 83-year-old male who presents ER with altered mental status. Has history of dementia but can typically hold conversation. Today he is too confused to do that. One month ago he had a pacemaker pocket infection that caused bacteremia. He received IV antibiotics during his hospitalization at [facility] and was then sent to rehab. He was discharged 2 days ago. His urine turned dark last night and today he became confused. He also became febrile today. No other symptoms according to . Related Data Home Medications ?Medication ?Instructions ?Recorded ?Confirmed ?Last Taken ?Type apixaban 5 mg tablet (Eliquis) 5 mg PO BID 02/20/24 02/20/24 Unknown History atorvastatin 20 mg tablet 20 mg PO DAILY 02/20/24 02/20/24 Unknown History donepezil 5 mg tablet 5 mg PO DAILY 02/20/24 02/20/24 Unknown History lisinopril 20 mg tablet 20 mg PO DAILY 02/20/24 02/20/24 Unknown History metoprolol tartrate 25 mg tablet 25 mg PO HS 02/20/24 02/20/24 Unknown History Allergies Allergy/AdvReac Type Severity Reaction Status Date / Time No Known Allergies Allergy Verified 05/04/24 17:55 Review of Systems 2 Review of Systems: ROS unobtainable: Yes unobtainable due to mental status [facility] Past Medical History Medical History (Updated 05/04/24 @ 18:23 by Boo Bee MD) Pacemaker Aortic valve disease s/p AVR and aortic root replacement CAD (coronary artery disease) CABG 1999 Essential (primary) hypertension Family History Family History Sibling Malignant neoplasm of prostate Mother Family history of heart disease in male family member before age 55 Father Family history of heart disease in male family member before age 55 Social History Social History Smoking status: Former smoker Alcohol intake: current Do You Feel Safe in your Home?: Yes Lack of Transportation: No Lack of Food: Never True Current Housing: I Have Housing Concerned About Future Housing: No Difficulty Paying Gas/Electric Bills: No Difficulty Paying for Meds: No Currently Unemployed: No Education: High School Diploma/GED Difficulty w/ Childcare or Family Care: No Spiritual care concerns: No Exam 2 Narrative: GENERAL: Chronically ill-appearing, well-nourished, and in no acute distress. HEAD: Normocephalic, atraumatic. ENT: Dry mucous membranes. NECK: Supple. CHEST: Clear to auscultation. No respiratory distress. HEART: Regular rate and rhythm. Normal peripheral pulses. ABDOMEN: Soft, nontender, nondistended. EXTREMITIES: Normal range of motion. No edema. SKIN: Warm, dry, no rash. NEURO: Alert and oriented x1. PSYCH: Normal mood and affect. Course Course Emergency Course: patient resting comfortably. 30 milliliter/kilogram bolus given. Blood pressure responded. IV antibiotics for pneumonia. Admit to hospitalist service. Patient mild NANI. Vital Signs Vital signs: Vital Signs Temperature 100 F H 05/04/24 15:20 Pulse Rate 73 05/04/24 15:20 Respiratory Rate 18 05/04/24 15:20 Blood Pressure 112/76 05/04/24 15:20 Pulse Oximetry 97 05/04/24 15:20 Oxygen Delivery Room Air 05/04/24 15:20 Temperature 100 F H 05/04/24 15:20 Pulse Rate 60 05/04/24 18:00 Respiratory Rate 15 05/04/24 18:00 Blood Pressure 123/62 05/04/24 17:16 Pulse Oximetry 99 05/04/24 17:16 Oxygen Delivery Room Air 05/04/24 15:20 Medical Decision Making Vital Signs Vital Signs: Vital Signs Temperature 100 F H 05/04/24 15:20 Pulse Rate 73 05/04/24 15:20 Respiratory Rate 18 05/04/24 15:20 Blood Pressure 112/76 05/04/24 15:20 Pulse Oximetry 97 05/04/24 15:20 Oxygen Delivery Room Air 05/04/24 15:20 Temperature 100 F H 05/04/24 15:20 Pulse Rate 60 05/04/24 18:00 Respiratory Rate 15 05/04/24 18:00 Blood Pressure 123/62 05/04/24 17:16 Pulse Oximetry 99 05/04/24 17:16 Oxygen Delivery Room Air 05/04/24 15:20 Lab Data 05/04/24 16:03 05/04/24 16:04 Labs: Lab Results 05/04/24 05/04/24 05/04/24 Range/Units 16:03 16:04 16:51 WBC 16.5 H (4.5-10.0) K/mm3 RBC 3.72 L (4.6-6.20) M/mm3 Hgb 10.5 L (14.0-18.0) g/dL Hct 33.5 L (42.0-52.0) % MCV 90.1 (80-100) fl MCH 28.2 (26-34) pg MCHC 31.3 L (32-36) g/dl RDW 15.6 H (11.5-14.5) % Plt Count 100 L D (150-375) k/mm3 MPV 11.6 H (7.4-10.4) fl Immature Gran % (Auto) 0.7 H (0-0.5) % Neut % (Auto) 93.9 H (45.5-73.1) % Lymph % (Auto) 2.5 L (18.3-44.2) % [place] % (Auto) 2.7 (2.6-8.5) % Eos % (Auto) 0.0 (0-4.4) % Baso % (Auto) 0.2 (0.2-1.2) % Lymph # (Auto) 0.41 L (0.9-3.2) K/mm3 [place] # (Auto) 0.5 (0.1-0.6) K/mm3 Eos # (Auto) 0.0 (0-0.3) K/mm3 Baso # (Auto) 0.0 (0.0-0.1) K/mm3 Abs Immat Gran (auto) 0.12 H (0.00-0.031) K/mm3 Absolute Neuts (auto) 15.5 H (1.3-6.7) K/mm3 Absolute Nucleated RBC 0.000 (0.0-0.012) K/mm3 Nucleated RBC % 0.0 (0.0-0.2) % Platelet Estimate Slightly decreased (Adequate) % Immature Plt Fraction 4.6 (0.9-11.2) % Hypochromasia 1+ Anisocytosis 1+ [place] Cells 1+ Acanthocytes (Spur) 1+ Schistocytes Rare PT 19.9 H (11.1-14.7) Seconds INR 1.6 APTT 37.6 H (22.3-36.8) Seconds Sodium 139 (137-145) mmol/L Potassium 4.0 (3.4-5.0) mmol/L Chloride 109 H (98-107) mmol/L Carbon Dioxide 24 (22-30) mmol/L Anion Gap 6 (4-12) mmol/L BUN 22 H D (9-20) mg/dL Creatinine 1.30 (0.7-1.3) mg/dL Estim Creat Clear Calc 37 ml/min Estimated GFR 53 L (59 - ) Glucose 113 H (65-110) mg/dL Lactic Acid 3.7 H (0.7-2.0) mmol/L Calcium 9.0 (8.4-10.2) mg/dL Total Bilirubin 0.8 (0.2-1.3) mg/dL AST 24 (17-59) U/L ALT 14 (6-50) U/L Alkaline Phosphatase 58 (38-126) U/L Total Protein 7.0 (6.3-8.2) g/dL Albumin 3.5 (3.5-5.1) g/dL Urine Color Dark yellow (Yellow) Urine Appearance Cloudy H (Clear) Urine pH 5.5 (5.0-9.0) Ur Specific [place] 1.028 (1.001-1.035) Urine Protein 2+ H (Negative) mg/dL Urine Glucose (UA) Negative (Negative) mg/dL Urine Ketones 1+ H (Negative) mg/dL Ur Blood (Man) Negative (Negative) Urine Nitrate Negative (Negative) Urine Bilirubin 1+ H (Negative) Urine Urobilinogen 1.0 (<2.0) mg/dL Add Ur Microanalysis Reviewed Leukocyte Esterase Rfl Trace H (Negative) MARLEN/UL Urine RBC 3-5 H (0-2) /hpf Urine WBC 6-10 H (0-3) /hpf Ur Squamous Epith Cells Occasional (Few) /hpf Urine Bacteria None seen /hpf Urine Casts 0-2 Imaging Data Radiologist's impression: ITS Impressions Chest X-Ray 05/04/24 17:12 IMPRESSION: 1. Airspace opacities in the lower lung zones, consistent with atelectasis versus pneumonia. Critical Care Time Critical Care Time Critical Care Time: Yes Total Critical Care Time: 35 Discharge Plan Discharge Clinical Impression: Pneumonia, Altered mental status, NANI (acute kidney injury) Sepsis Qualifiers: Sepsis type: sepsis due to unspecified organism Sepsis acute organ dysfunction status: without acute organ dysfunction Qualified Code(s): A41.9 - Sepsis, unspecified organism Patient Disposition: Still a Patient Condition: Stable Patient Language: Bhutanese Prescriptions: No Action atorvastatin 20 mg tablet 20 mg PO DAILY donepezil 5 mg tablet 5 mg PO DAILY lisinopril 20 mg tablet 20 mg PO DAILY metoprolol tartrate 25 mg Tablet 25 mg PO HS Eliquis 5 mg tablet 5 mg PO BID bisacodyl [Laxative (bisacodyl)] 5 mg Tablet,Delayed Release (Dr/Ec) 5 mg PO QAM PRN (Reason: constipation) Qty: 30 0RF pantoprazole 40 mg Tablet,Delayed Release (Dr/Ec) 40 mg PO Q12HR Qty: 60 0RF vancomycin in 0.9 % sodium chl 2 gram/500 mL Solution 2,000 mg IV Q24H Qty: [id number] 0RF Follow-up/Referrals: Kamlesh,Robert Shetty MD [Primary Care Provider] -
--- NOTE | 2024-05-04 18:14 | PM.IMHP ---
H&P: HPI History of Present Illness Date/Time: 05/04/24 18:14 Chief Complaint: Altered Mental Status Narrative: 83-year-old male with a past medical history of AV replacement and pacemaker implant presents to the ER with altered mental status. Today, his stepdaughter and partner at the bedside was present during the evaluation at bedside. As per his stepdaughter, the patient was admitted in February at [place] and diagnosed with MRSA and endocarditis. He was started on vancomycin and later transferred to a care home. The patient had difficulty receiving vancomycin at the care home, so later, he was transferred to [facility], where they removed the infected pacemaker and replaced it with a temporary pacemaker x2. As per the stepdaughter, they placed a permanent pacemaker, and then she was transferred to rehab for 2 weeks. After the recovery, the patient returned home on Apr. As per the family member, he started having confusion, and it was exaggerated today, and that is the reason he was brought to the ED. They also reported his urine was dark and was febrile. After reviewing the chart in detail, I asked Dr. Bee if the patient could be transferred to [facility] because of the possibility of skin site infection vs actual lead, which can be infected. Dr. Bee spoke with the family and reported they preferred to stay in [place] because it is closer to home. Later, reviewing the ED documentation, Dr. Bee documented AICD infection of pacemaker in February. Admitted and treated, aicd removed, temporary with vegetation and also removed. Two week pacer/aicd holiday from Mar 17- and then received new device. Dr. Bhat with medicine declines transfer as the patient has no specialized needs at this time . Currently, the patient has evidence of pneumonia, which is being treated with ceftriaxone and azithromycin. Because of the possible lead infection, the patient will be started on vancomycin. Cardiology will be consulted and an echocardiogram will be deferred according to their recommendation.His creatinine has increased to 1.3, possibly due to dehydration. The patient has started on IV fluids and will trend his creatinine. Pertinent labs in the ED: WBC 16.5, hemoglobin 10.5, platelet 100, sodium 139, potassium 4, BUN 22, creatinine 1.3(baseline 0.8). UA: Nitrites negative, trace leukocyte esterase CXR:Airspace opacities in the lower lung zones are consistent with atelectasis versus pneumonia. Review of Systems Review of Systems: ROS unobtainable: Yes unobtainable due to mental status [facility] Past Medical History Medical History (Updated 05/04/24 @ 18:23 by Boo Bee MD) Pacemaker Aortic valve disease s/p AVR and aortic root replacement CAD (coronary artery disease) CABG 1999 Essential (primary) hypertension Family History Family History Sibling Malignant neoplasm of prostate Mother Family history of heart disease in male family member before age 55 Father Family history of heart disease in male family member before age 55 Social History Social History Smoking status: Former smoker Alcohol intake: current Do You Feel Safe in your Home?: Yes Lack of Transportation: No Lack of Food: Never True Current Housing: I Have Housing Concerned About Future Housing: No Difficulty Paying Gas/Electric Bills: No Difficulty Paying for Meds: No Currently Unemployed: No Education: High School Diploma/GED Difficulty w/ Childcare or Family Care: No Spiritual care concerns: No Meds Home Medications and Allergies Home Medications ?Medication ?Instructions ?Recorded ?Confirmed ?Type apixaban 5 mg tablet (Eliquis) 5 mg PO BID 02/20/24 02/20/24 History atorvastatin 20 mg tablet 20 mg PO DAILY 02/20/24 02/20/24 History donepezil 5 mg tablet 5 mg PO DAILY 02/20/24 02/20/24 History lisinopril 20 mg tablet 20 mg PO DAILY 02/20/24 02/20/24 History metoprolol tartrate 25 mg tablet 25 mg PO HS 02/20/24 02/20/24 History bisacodyl 5 mg tablet,delayed 5 mg PO QAM PRN constipation #30 02/28/24 Rx release (Laxative (bisacodyl)) tabs pantoprazole 40 mg tablet,delayed 40 mg PO Q12HR #60 tabs 02/28/24 Rx release vancomycin 2 gram/500 mL in 0.9 % 2,000 mg (500 mL) IV Q24H #21,000 02/28/24 Rx sodium chloride intravenous mL Allergies Allergy/AdvReac Type Severity Reaction Status Date / Time No Known Allergies Allergy Verified 05/04/24 17:55 Vital Signs Vital Signs - 24 hr 05/04/24 15:20 05/04/24 16:32 05/04/24 16:45 Temperature 100 F H Pulse Rate 73 60 60 Respiratory Rate 18 18 20 Blood Pressure 112/76 99/85 L Pulse Oximetry 97 98 Oxygen Delivery Room Air 05/04/24 16:46 05/04/24 17:00 05/04/24 17:16 Temperature Pulse Rate 60 60 60 Respiratory Rate 23 H 17 20 Blood Pressure 93/68 L 123/62 Pulse Oximetry 98 99 Oxygen Delivery 05/04/24 17:45 05/04/24 18:00 Temperature Pulse Rate 60 60 Respiratory Rate 18 15 Blood Pressure Pulse Oximetry Oxygen Delivery Exam Narrative: GENERAL: Chronically ill-appearing, well-nourished, and in no acute distress. HEAD: Normocephalic, atraumatic. ENT: Dry mucous membranes. NECK: Supple. CHEST: Clear to auscultation. No respiratory distress. HEART: Regular rate and rhythm. Normal peripheral pulses. ABDOMEN: Soft, nontender, nondistended. EXTREMITIES: Normal range of motion. No edema. SKIN: Warm, dry, no rash. NEURO: Alert and oriented x1. PSYCH: Normal mood and affect. H&P: Results Labs Labs: Short CBC 05/04/24 Range/Units 16:03 WBC 16.5 H (4.5-10.0) K/mm3 Hgb 10.5 L (14.0-18.0) g/dL Hct 33.5 L (42.0-52.0) % Plt Count 100 L D (150-375) k/mm3 BMP 05/04/24 16:04 Sodium 139 Potassium 4.0 Chloride 109 H Carbon Dioxide 24 BUN 22 H D Creatinine 1.30 Glucose 113 H Calcium 9.0 Liver Function 05/04/24 Range/Units 16:04 Total Bilirubin 0.8 (0.2-1.3) mg/dL AST 24 (17-59) U/L ALT 14 (6-50) U/L Alkaline Phosphatase 58 (38-126) U/L Albumin 3.5 (3.5-5.1) g/dL Urine 05/04/24 Range/Units 16:51 Urine Color Dark yellow (Yellow) Urine Appearance Cloudy H (Clear) Urine pH 5.5 (5.0-9.0) Ur Specific [place] 1.028 (1.001-1.035) Urine Protein 2+ H (Negative) mg/dL Urine Glucose (UA) Negative (Negative) mg/dL Assessment and Plan Assessment and plan (1) NANI (acute kidney injury): Code(s): N17.9 - Acute kidney failure, unspecified Status: Acute (2) Altered mental status: Code(s): R41.82 - Altered mental status, unspecified Status: Acute (3) Pneumonia: Code(s): J18.9 - Pneumonia, unspecified organism Status: Acute (4) Pacemaker: Code(s): Z95.0 - Presence of cardiac pacemaker Status: Acute (5) Aortic valve disease: Code(s): I35.9 - Nonrheumatic aortic valve disorder, unspecified Status: Acute (6) Endocarditis: Code(s): I38 - Endocarditis, valve unspecified Status: Acute Plan #NANI -Avoid nephrotoxic drugs. -Monitor antihypertensive drug therapy. -Routine CMP monitoring GFR. -Monitor electrolytes -Antibiotic doses depending on creatinine clearance. -Pharmacy does medications. -Cr 1.3 (0.8 baseline) -Started IV fluids #PNA Vital signs improved and stable Start Ceftriaxone and Azithromycin monitor cultures MRSA pending encourage oral intake #Pacemaker Recently treated for MRSA JOSEPH performed on 02/24 Removal of infected pacemaker at [facility] and placed ne pacemaker Cardiology consulted Hold Vancomycin until further evaluation (BC and JOSEPH results) DVT prophylaxis: [facility]aya Hospitalist [facility] Advance Care Plan I have confirmed that the patient's Advanced Care Plan is present, code status is documented, or surrogate decision maker is listed in patient medical record.: Yes Medication Reconciliation I have utilized all available resources to obtain, update and review the patients current medications (includes all prescriptions, OTC, herbals, cannabis, and nutritional supplements).: Yes
[2024-05-04] MEDS: AZITHROMYCIN 500 MG/NS 250 ML 500 MG/250 ML BAG 250 MG IVPB (18:27)
[2024-05-04 19:06] LABS: Reflex Lactic Acid Yes or No Add Lactic
[2024-05-04 19:18] LABS: Influenza A QL RT-PCR Negative (Negative); Influenza B QL RT-PCR Negative (Negative); RSV RNA, RT-PCR Negative (Negative); SARS-CoV-2 RNA PCR Negative (Negative)
[2024-05-04] MEDS: SODIUM CHLORIDE 0.9% IV 1,000 ML 125 ML IV CONT (19:28)
[2024-05-04 20:27] LABS: Lactic Acid 2.1 mmol/L (0.7-2.0)
[2024-05-04 20:41] LABS: Vancomycin Trough < 5.0 ug/mL (10.0-20.0)
[2024-05-04] MEDS: LORazepam INJ (*CRX) 2 MG/ML VIAL 0.5 MG IV PUSH (21:04)
--- NOTE | 2024-05-04 21:08 | PC.NURSE ---
Patient began pulling on IV lines, urinary catheter, and ECG cords. Per Dr. Elizabeth LAFLEUR 0.5mg Ativan IVP.
[2024-05-04] MEDS: VANCOMYCIN 1,750 MG/NS 500 ML 1,750 MG/500 ML BAG 250 MG IVPB (21:11)
[2024-05-04] MEDS: diphenhydrAMINE HCl INJ 50 MG/ML VIAL 25 MG IV PUSH (21:30)
--- NOTE | 2024-05-04 21:32 | PC.NURSE ---
2103: 0.5mg Ativan given IVP 2110: Vancomycin 1750mg/500mL at 250mL/hr started 2129: 25mg Benadryl IVP given. Provider in chart and unable to save medication times/administrations
[2024-05-04 22:08] LABS: MRSA (PCR) DETECTED (NOT DETECTE)
[2024-05-05] VITALS (13 sets, daily range): BP systolic 106–128; BP diastolic 52–86; PULSE 60–81; RESP 16–24; TEMP 36.5–37.2; O2SAT 93–100; BMI 21.9
[2024-05-05] MEDS: SODIUM CHLORIDE 0.9% IV 1,000 ML 125 ML IV CONT ×2 (04:04→14:58)
--- NOTE | 2024-05-05 04:14 | ADMGEN ---
This patient, Tom Garner, was admitted to IMU Room 213-01 on 05/04/24 at 2150. Patient/family oriented to hospital policies and general routines including ID bracelet, bed and alarms, visiting hours, pain management, procedures, bathroom and other care routines, personal items, smoking policy, room service/diet, and visiting hours. Information on how to activate the Rapid Response Team has been discussed. Patient/Family are encouraged to report perceived risks to care and to ask questions if they do not understand what they are told or what they should do.
[2024-05-05 05:53] LABS: Estimated CRCL calculation 41 ml/min; Estimated Glomerular Filt Rate > 60
[2024-05-05 08:27] LABS: Immature Platelet Fraction Pct 6.5 % (0.9-11.2); Mean Platelet Volume 12.1 fl (7.4-10.4); Platelet Count Result 82 k/mm3 (150-375)
[2024-05-05 08:29] LABS: Glucose Point of Care 91 mg/dl (65-105)
[2024-05-05 10:18] LABS: Basophils Percent Auto 0.3 % (0.2-1.2); Eosinophils Absolute Auto 0.1 K/mm3 (0-0.3); Eosinophils Percent Auto 0.9 % (0-4.4); Hemoglobin 9.5 g/dL (14.0-18.0); Immature Granulocyte Absolute 0.07 K/mm3 (0.00-0.031); Immature Granulocyte Percent A 0.6 % (0-0.5); Immature Platelet Fraction Pct 6.6 % (0.9-11.2); Lymphocytes Absolute Auto 0.89 K/mm3 (0.9-3.2); Lymphocytes Percent Auto 7.7 % (18.3-44.2); Mean Corpuscular HGB Conc 31.7 g/dl (32-36); Mean Corpuscular Hemoglobin 28.7 pg (26-34); Mean Corpuscular Volume 90.6 fl (80-100); Mean Platelet Volume 12.1 fl (7.4-10.4); Monocytes Absolute Auto 0.6 K/mm3 (0.1-0.6); Monocytes Percent Auto 5.1 % (2.6-8.5); Neutrophils Absolute Auto 9.9 K/mm3 (1.3-6.7); Neutrophils Percent Auto 85.4 % (45.5-73.1); Platelet Count Result 82 k/mm3 (150-375); Red Blood Count 3.31 M/mm3 (4.6-6.20); Red Cell Distribution Width 15.9 % (11.5-14.5); White Blood Count 11.6 K/mm3 (4.5-10.0)
[2024-05-05 10:58] LABS: Alanine Aminotransferase 22 U/L (6-50); Albumin Level 2.4 g/dL (3.5-5.1); Alkaline Phosphatase 54 U/L (38-126); Anion Gap 5 mmol/L (4-12); Aspartate Amino Transferase 46 U/L (17-59); Bilirubin,Total 0.4 mg/dL (0.2-1.3); Blood Urea Nitrogen 25 mg/dL (9-20); Calcium 7.6 mg/dL (8.4-10.2); Carbon Dioxide 19 mmol/L (22-30); Chloride 117 mmol/L (98-107); Estimated CRCL calculation 41 ml/min; Estimated Glomerular Filt Rate > 60; Glucose 102 mg/dL (65-110); Magnesium 1.7 mg/dL (1.6-2.3); Potassium 3.9 mmol/L (3.4-5.0); Sodium 141 mmol/L (137-145)
[2024-05-05 11:03] LABS: Procalcitonin 12.1 ng/mL
--- NOTE | 2024-05-05 13:13 | PM.CNCAR ---
Assessment and Plan Assessment and plan (1) Bacteremia: Code(s): R78.81 - Bacteremia Status: Acute (2) Aortic valve disease: Code(s): I35.9 - Nonrheumatic aortic valve disorder, unspecified Status: Acute (3) NANI (acute kidney injury): Code(s): N17.9 - Acute kidney failure, unspecified Status: Acute (4) Sepsis: Qualifiers: Sepsis acute organ dysfunction status: without acute organ dysfunction Sepsis type: sepsis due to unspecified organism Qualified Code(s): A41.9 - Sepsis, unspecified organism Code(s): A41.9 - Sepsis, unspecified organism Status: Acute (5) Pacemaker: Code(s): Z95.0 - Presence of cardiac pacemaker Status: Acute (6) Essential (primary) hypertension: Code(s): I10 - Essential (primary) hypertension Status: Acute (7) Hypotension: Code(s): I95.9 - Hypotension, unspecified Status: Acute (8) Pneumonia: Code(s): J18.9 - Pneumonia, unspecified organism Status: Acute Assessment and Plan: Assessment: 1.Sepsis secondary to bacteremia and/or pneumonia 2. Pneumonia on IV azithromycin and ceftriaxone 3. Bacteremia with 2 of 2 blood cultures: Growing Gram-positive cocci in clusters on IV vancomycin 4. Recent MRSA bacteremia status post antibiotics with recurrence- 2/2 blood cultures this admission positive for Gram-positive cocci in clusters. Given recurrence it is important to evaluate for source of infection, particularly pacemaker device/prostatic valve/[place] valve endocarditis 5. Recent permanent pacemaker infection status post removal and placement of new permanent pacemaker 6. NANI 7. Altered mental status-CT head negative for any acute pathology 8. History of aortic valve disease status post aortic valve replacement and aortic root replacement 9. CAD status post CABG in 1999 10. Atrial fibrillation Plan -Follow blood cultures and treat with appropriate antibiotics -Given recent MRSA bacteremia, permanent pacemaker device infection, its removal, and placement of new permanent pacemaker and now back with recurrent bacteremia (2 x 2 bottles growing Gram-positive cocci in clusters), recommend a JOSEPH to evaluate for infective endocarditis/pacemaker device infection. Keep NPO at midnight on Wednesday for JOSEPH on Wednesday -ID consult -Continue Eliquis for anticoagulation for AFib. Can switch to heparin GTT while in patient -Continue statin -Hold metoprolol and lisinopril to avoid hypotension in the setting of sepsis. Also patient has NANI -Agree with IV fluids for NANI. Check renal function daily -Check electrolytes and replace as needed keeping potassium greater than 4 and magnesium greater than 2 -Patient is very sick given recurrent bacteremia -Management of other medical problems per primary team History of Present Illness History of Present Illness Consult date/time: 05/05/24 13:13 Reason For Visit: Sepsis/Pneumonia/Altered Mental Status Narrative: Mr. Garner is an 83-year-old male with a past medical history of aortic valve disease status post AVR and aortic root replacement, CAD s/p CABG in 1999, AICD infection s/p removal and new device placement at [facility], and hypertension who was admitted with altered mental status. Patient remains confused and is accompanied by his fiancee at the bedside who provides most of the history. History was also obtained from patient's medical chart. Patient had MRSA bacteremia in February and JOSEPH showed infection of the pacemaker leads. He was administered IV vancomycin and discharged to [place] [facility] [place] to continue IV ABx. However, patient had difficulty receiving [place] and was transferred to [facility]. The infected device was removed and temporary pacemaker x2 were placed. Later a permanent pacemaker was placed and he was transferred to rehab. Patient returned home on 05/01 and started having confusion which was exacerbated today and he was brought to the ED. He was noted to have pneumonia and is on IV antibiotics with ceftriaxone and azithromycin. Two of two bottles of blood cultures came back positive for Gram-positive cocci in clusters. He has NANI with creatinine of 1.3 for which he was started on IV fluids. Cardiology was consulted for further evaluation given h/o recent MRSA bacteremia, recent pacemaker infection s/p removal and new PPM placement in the setting of sepsis and positive blood Cx for GPC in clusters. Per patient's fiance, patient does not have any chest pain, SOB, dizziness, palpitations. He is confused. Pertinent labs and imaging: Troponin: EKG: A fib with rate of 60, IVCD present Blood Cx 05/04: GPC in clusters CXR: IMPRESSION: 1. Airspace opacities in the lower lung zones, consistent with atelectasis versus pneumonia. CT head 05/05: IMPRESSION: 1. No acute intracranial process. 2. Stable age-related changes including moderate diffuse volume loss and mild scattered white matter hypoattenuation consistent with chronic small vessel ischemic disease. TTE 02/22/2024:Summary 1. Complete two-dimensional, color flow and Doppler transthoracic echocardiogram is performed. 2. With normal left ventricular size and overall normal systolic function. 3. Abnormal septal motion consistent with electronically paced rhythm. 4. Severe biatrial enlargement. 5. Small amount of mitral and tricuspid insufficiency. 6. No infectious vegetations were visualized. JOSEPH: 02/26/2024: Summary 1. Transesophageal echocardiogram demonstrating mobile infectious vegetations associated with the pacemaker leads that are seen in the right atrium. 2. No evidence of any valvular vegetation. 3. Mild mitral regurgitation. 4. Biatrial dilation. Review of Systems Review of Systems: A complete review of systems could not be performed as patient is confused PMFSH Past Medical History Medical History (Updated 05/05/24 @ 14:27 by Deepti Whaley MD) Pacemaker Aortic valve disease s/p AVR and aortic root replacement CAD (coronary artery disease) CABG 2000 Essential (primary) hypertension Family History Family History Sibling Malignant neoplasm of prostate Mother Family history of heart disease in male family member before age 55 Father Family history of heart disease in male family member before age 55 Social History Social History Smoking status: Former smoker Tobacco type: cigarettes Alcohol intake: never Substance use: never Do You Feel Safe in your Home?: Yes Lack of Transportation: No Lack of Food: Never True Current Housing: I Have Housing Concerned About Future Housing: No Difficulty Paying Gas/Electric Bills: No Difficulty Paying for Meds: No Currently Unemployed: No Education: High School Diploma/GED Difficulty w/ Childcare or Family Care: No Spiritual care concerns: No Meds Home Medications and Allergies Home Medications ?Medication ?Instructions ?Recorded ?Confirmed ?Type apixaban 5 mg tablet (Eliquis) 5 mg PO BID 02/20/24 05/04/24 History atorvastatin 20 mg tablet 20 mg PO DAILY 02/20/24 05/04/24 History donepezil 5 mg tablet 5 mg PO QHS 02/20/24 05/04/24 History metoprolol tartrate 25 mg tablet 25 mg PO QAM 02/20/24 05/04/24 History acetaminophen 500 mg capsule 500 mg PO Q6H PRN pain 05/04/24 05/04/24 History aspirin 81 mg tablet,delayed 81 mg PO DAILY 05/04/24 05/04/24 History release (Adult Aspirin Regimen) docusate sodium 100 mg capsule 100 mg PO BID 05/04/24 05/04/24 History niacin 500 mg capsule,extended 500 mg PO HS 05/04/24 05/04/24 History release polyethylene glycol 3350 17 17 g PO DAILY 05/04/24 05/04/24 History gram/dose oral powder (Miralax) Allergies Allergy/AdvReac Type Severity Reaction Status Date / Time No Known Allergies Allergy Verified 05/04/24 17:55 Vital Signs Vital Signs - 24 hr 05/04/24 15:20 05/04/24 16:32 05/04/24 16:45 Temperature 37.7 C H Pulse Rate 73 60 60 Respiratory Rate 18 18 20 Blood Pressure 112/76 99/85 L Pulse Oximetry 97 98 Oxygen Delivery Room Air 05/04/24 16:46 05/04/24 17:00 05/04/24 17:16 Temperature Pulse Rate 60 60 60 Respiratory Rate 23 H 17 20 Blood Pressure 93/68 L 123/62 Pulse Oximetry 98 99 Oxygen Delivery 05/04/24 17:45 05/04/24 18:00 05/04/24 18:30 Temperature Pulse Rate 60 60 60 Respiratory Rate 18 15 Blood Pressure 107/57 L Pulse Oximetry Oxygen Delivery 05/04/24 18:56 05/04/24 18:56 05/04/24 19:00 Temperature 36.6 C 36.6 C Pulse Rate 60 60 Respiratory Rate 25 H Blood Pressure 106/93 H Pulse Oximetry 98 Oxygen Delivery 05/04/24 20:12 05/04/24 21:58 05/04/24 22:00 Temperature 37.5 C 37.3 C Pulse Rate 69 58 L 60 Respiratory Rate 20 16 Blood Pressure 103/67 112/53 L Pulse Oximetry 93 100 Oxygen Delivery 05/04/24 22:04 05/04/24 23:04 05/05/24 00:00 Temperature 37.3 C 37.1 C 37.1 C Pulse Rate 58 L 61 61 Respiratory Rate 16 20 20 Blood Pressure 112/53 L 107/79 107/79 Pulse Oximetry 100 97 97 Oxygen Delivery 05/05/24 00:00 05/05/24 00:04 05/05/24 02:00 Temperature 37.2 C Pulse Rate 61 60 60 Respiratory Rate 16 Blood Pressure 117/52 L Pulse Oximetry 100 Oxygen Delivery 05/05/24 04:00 05/05/24 04:00 05/05/24 06:00 Temperature 36.5 C Pulse Rate 61 69 61 Respiratory Rate 16 Blood Pressure 108/64 Pulse Oximetry 97 Oxygen Delivery 05/05/24 08:00 05/05/24 08:00 05/05/24 08:00 Temperature 36.7 C Pulse Rate 61 60 Respiratory Rate 20 Blood Pressure 106/61 Pulse Oximetry 99 Oxygen Delivery Room Air 05/05/24 10:00 05/05/24 12:00 05/05/24 12:00 Temperature Pulse Rate 60 60 Respiratory Rate Blood Pressure Pulse Oximetry Oxygen Delivery Room Air Exam Narrative: General: Patient is altered, not in any acute distress Neck: Supple, no JVD Chest: Bilateral clear to auscultation, no rales or rhonchi Cardiac: S1, S2 plus, irregularly irregular, no murmurs or rubs Extremities: No peripheral edema, no skin rash Neurologic: Altered mental status, no focal neurological deficits Results Labs and Meds 05/05/24 05:03 05/05/24 05:04 Lab results: Cardiac Enzymes 05/04/24 05/05/24 Range/Units 16:04 05:04 AST 24 46 (17-59) U/L Coagulation 05/04/24 Range/Units 16:04 PT 19.9 H (11.1-14.7) Seconds APTT 37.6 H (22.3-36.8) Seconds CBC 05/04/24 05/05/24 05/05/24 Range/Units 16:03 05:03 05:03 WBC 16.5 H 11.6 H (4.5-10.0) K/mm3 RBC 3.72 L 3.31 L (4.6-6.20) M/mm3 Hgb 10.5 L 9.5 L (14.0-18.0) g/dL Hct 33.5 L 30.0 L (42.0-52.0) % Plt Count 100 L D 82 L 82 L (150-375) k/mm3 Lymph # (Auto) 0.41 L 0.89 L (0.9-3.2) K/mm3 [place] # (Auto) 0.5 0.6 (0.1-0.6) K/mm3 Eos # (Auto) 0.0 0.1 (0-0.3) K/mm3 Baso # (Auto) 0.0 0.0 (0.0-0.1) K/mm3 Comprehensive Metabolic Panel 05/04/24 05/05/24 05/05/24 Range/Units 16:04 05:04 05:04 Sodium 139 141 (137-145) mmol/L Potassium 4.0 3.9 (3.4-5.0) mmol/L Chloride 109 H 117 H (98-107) mmol/L Carbon Dioxide 24 19 L (22-30) mmol/L BUN 22 H D 25 H (9-20) mg/dL Creatinine 1.30 1.10 1.10 (0.7-1.3) mg/dL Glucose 113 H 102 (65-110) mg/dL Calcium 9.0 7.6 L (8.4-10.2) mg/dL AST 24 46 (17-59) U/L ALT 14 22 (6-50) U/L Alkaline Phosphatase 58 54 (38-126) U/L Total Protein 7.0 5.0 L (6.3-8.2) g/dL Albumin 3.5 2.4 L (3.5-5.1) g/dL Intake and Output 05/04/24 05/05/24 05/05/24 23:59 07:59 15:59 Intake Total 3600 1000 Output Total 200 Balance 3600 800 Intake: IV 3600 1000 Sodium Chloride 0.9% IV 1,000 1000 ml @ 0 mls/hr .ROUTE .STK-MED ONE Rx#:[id number] Sodium Chloride 0.9% IV 1,000 2300 1000 ml @ 125 mls/hr IV CONT .Q8H DARIUSZ Rx#:[id number] Azithromycin 500 mg/Ns 250 ml 250 500 mg In 250 ml @ 250 mls/hr IVPB ONCE STA Rx#:[id number] cefTRIAXone 1 GM/NS 50 ML 1 gm 50 In 50 ml @ 100 mls/hr IVPB ONCE STA Rx#:[id number] Output: Urine 200 Patient Weight 05/05/24 23:59 Weight 65.3 kg
--- NOTE | 2024-05-05 15:41 | PM.IMPN ---
Progress Note: A&P Assessment and Plan (1) Sepsis: Qualifiers: Sepsis acute organ dysfunction status: without acute organ dysfunction Sepsis type: sepsis due to unspecified organism Qualified Code(s): A41.9 - Sepsis, unspecified organism Code(s): A41.9 - Sepsis, unspecified organism Status: Acute Assessment and Plan: Patient was hospitalized at [facility] then at a rehab facility. He was home for about 1-2 days before devloping worsening confusion that prompted he to present to the ED here. CXR showing airspace opacities in the lower lung zones c/w with atelectasis vs PNA. He was febrile. Lactic acid was 3.7. WBC 16. He was tachypneic. BP was soft. All c/w sepsis. He was treated with appropriate fluid regiment. BCx collected and he was started on Rocephin and Azithromycin; Vanc was added. BCx returned positive for GPC in clusters from both aerobic and anaerobic sets. Source could be PNA. Consider endocarditis or old PM pocket. White count trending downward. Continue Vanco. Await ID and sensitivities. Cardiolgoy consult. JOSEPH planned for Wednesday. Check CT Ch/A/P with contrast tomorrow if renal fxn better. Resume home meds. Resume metoprolol dose in AM if remains stable (2) Bacteremia: Code(s): R78.81 - Bacteremia Status: Acute Assessment and Plan: As above (3) Pneumonia: Code(s): J18.9 - Pneumonia, unspecified organism Status: Acute Assessment and Plan: As above. Will check chest CT. (4) NANI (acute kidney injury): Code(s): N17.9 - Acute kidney failure, unspecified Status: Acute Assessment and Plan: Baseline creatinine is normal at 0.8. Creatinine 1.3 on admission and has trended down will with the IV fluids. Continue to monitor. (5) Pacemaker: Code(s): Z95.0 - Presence of cardiac pacemaker Status: Acute Assessment and Plan: Patient was here in February for AMS and sepsis from chest wall cellulitis. He was bacteremic with MRSA. JOSEPH (02/25/24) showing evidence of infective vegetation associated with the pacemaker lead/leads in the right atrium but no clear-cut evidence of valvular involvement with the vegetation however the JOSEPH was not of ideal quality. Patient followed up with his physician at [facility]. The infected device was removed. He had a temporary pacemaker until cleared and then had a permanent pacemaker placed in the left upper chest. Plan as above. (6) Aortic valve disease: Code(s): I35.9 - Nonrheumatic aortic valve disorder, unspecified Status: Acute Assessment and Plan: Patient with aortic valve disease s/p AVR with aortic root replacement. JOSEPH planned. (7) Severe protein-calorie malnutrition: Code(s): E43 - Unspecified severe protein-calorie malnutrition Status: Acute Assessment and Plan: Patient with severe protein calorie malnutrition related to chronic loss of appetite, recent hospitalization, weight loss of 10% over the past 3 months and intake less than 75% of needs for greater than 1 month. He also has severe muscle wasting and severe fat loss. Start supplements. Dietary consult. (8) Altered mental status: Code(s): R41.82 - Altered mental status, unspecified Status: Acute Assessment and Plan: Patient has underlying dementia and is on Aricept which will resume. Patient had altered mental status most likely related to pneumonia and bacteremia. CT the brain showing no acute findings Monitor mental status. Plan TCP - Not noted before. Probably related to sepsis. No Heparin for now. Will hold Eliquis until this improves. Check B12 DVT prophylaxis - SCDs Code status - full code Subjective Date/time seen: 05/05/24 15:41 Interval history: 83yo male with hx of infected PM, dementia and HTN here for altered mental status. Patietn is alert and mostly oriented. at bedside. Patient more alert today. He denies CP, abd pain and back pain. No joint pain. Exam Narrative: AF 98.5 128/83 60 22 93%ra Gen - NARD sitting up in chair Chest - lungs are clear, nml RR. healing left upper chest PM site without pain or bogginess. Right upper chest pocket well healed but edematous and tender. lower sternal dried eschar but no CW erythema CV - RRR S1/S2. Tele showing mostly paced rhythm Abd - Soft, NT/ND, Positive BS Ext - No pedal edema Psych - Nml mood and affect Skin - Warm and dry. Objective Data Vital Signs Vital Signs: Vital Signs - 24 hr 05/04/24 16:32 05/04/24 16:45 05/04/24 16:46 Temperature Pulse Rate 60 60 60 Respiratory Rate 18 20 23 H Blood Pressure 99/85 L 93/68 L Pulse Oximetry 98 Oxygen Delivery 05/04/24 17:00 05/04/24 17:16 05/04/24 17:45 Temperature Pulse Rate 60 60 60 Respiratory Rate 17 20 18 Blood Pressure 123/62 Pulse Oximetry 98 99 Oxygen Delivery 05/04/24 18:00 05/04/24 18:30 05/04/24 18:56 Temperature Pulse Rate 60 60 60 Respiratory Rate 15 Blood Pressure 107/57 L Pulse Oximetry Oxygen Delivery 05/04/24 18:56 05/04/24 19:00 05/04/24 20:12 Temperature 98 F 98 F 99.5 F Pulse Rate 60 69 Respiratory Rate 25 H 20 Blood Pressure 106/93 H 103/67 Pulse Oximetry 98 93 Oxygen Delivery 05/04/24 21:58 05/04/24 22:00 05/04/24 22:04 Temperature 99.1 F 99.1 F Pulse Rate 58 L 60 58 L Respiratory Rate 16 16 Blood Pressure 112/53 L 112/53 L Pulse Oximetry 100 100 Oxygen Delivery 05/04/24 23:04 05/05/24 00:00 05/05/24 00:00 Temperature 98.7 F 98.7 F Pulse Rate 61 61 61 Respiratory Rate 20 20 Blood Pressure 107/79 107/79 Pulse Oximetry 97 97 Oxygen Delivery 05/05/24 00:04 05/05/24 02:00 05/05/24 04:00 Temperature 98.9 F Pulse Rate 60 60 61 Respiratory Rate 16 Blood Pressure 117/52 L Pulse Oximetry 100 Oxygen Delivery 05/05/24 04:00 05/05/24 06:00 05/05/24 08:00 Temperature 97.7 F 98.1 F Pulse Rate 69 61 61 Respiratory Rate 16 20 Blood Pressure 108/64 106/61 Pulse Oximetry 97 99 Oxygen Delivery 05/05/24 08:00 05/05/24 08:00 05/05/24 10:00 Temperature Pulse Rate 60 60 Respiratory Rate Blood Pressure Pulse Oximetry Oxygen Delivery Room Air 05/05/24 12:00 05/05/24 12:00 05/05/24 12:00 Temperature 98.5 F Pulse Rate 60 78 Respiratory Rate 22 H Blood Pressure 128/83 Pulse Oximetry 93 Oxygen Delivery Room Air 05/05/24 14:00 Temperature Pulse Rate 60 Respiratory Rate Blood Pressure Pulse Oximetry Oxygen Delivery Intake/Output Intake/Output: Intake & Output 05/02/24 05/03/24 05/04/24 05/05/24 23:59 23:59 23:59 23:59 Intake Total 3600 2220 Output Total 200 Balance 3600 2019 Meds/Results Medications: Active Medications Generic Name Dose Route Start Last Admin Trade Name Freq PRN Reason Stop Dose Admin Acetaminophen 650 mg 05/04/24 18:08 Acetaminophen 325 Mg Tablet PO Q4H PRN Mild Pain (1-3) or Fever Hydrocodone Bitart/Acetaminophen 1 tab 05/04/24 18:08 Hydrocodone/Acetaminophen (*Crx) 5-325 Mg Tablet PO Q4H PRN Pain Rated 4-6 Enoxaparin Sodium 40 mg 05/05/24 09:00 Enoxaparin 40 Mg/0.4 Ml Syringe SUB-Q DAILY DARIUSZ Ceftriaxone Sodium 1 gm in 50 mls @ 100 mls/hr 05/05/24 17:00 Rocephin 1 Gm/Ns 50 Ml IVPB Q24H DARIUSZ Azithromycin 500 mg in 250 mls @ 250 mls/hr 05/05/24 18:00 Zithromax IVPB Q24H DARIUSZ Sodium Chloride 1,000 mls @ 125 mls/hr 05/04/24 18:10 05/05/24 14:58 Normal Saline Iv IV CONT 125 mls/hr .Q8H DARIUSZ Administration Vancomycin HCl 1,250 mg in 250 mls @ 166.667 mls/hr 05/05/24 21:00 Vancomycin 1,250 Mg/Ns 250 Ml IVPB Q24H DARIUSZ Ondansetron HCl 4 mg 05/04/24 18:08 Ondansetron Inj 4 Mg/2 Ml Vial IV PUSH Q4H PRN Nausea Radiology Results: ITS Impressions Chest X-Ray 05/04/24 17:12 IMPRESSION: 1. Airspace opacities in the lower lung zones, consistent with atelectasis versus pneumonia. Head CT 05/05/24 10:52 IMPRESSION: 1. No acute intracranial process. 2. Stable age-related changes including moderate diffuse volume loss and mild scattered white matter hypoattenuation consistent with chronic small vessel ischemic disease. Labs Labs: Laboratory Results - last 24 hr 05/04/24 05/04/24 05/04/24 16:03 16:04 16:51 WBC 16.5 H RBC 3.72 L Hgb 10.5 L Hct 33.5 L MCV 90.1 MCH 28.2 MCHC 31.3 L RDW 15.6 H Plt Count 100 L D MPV 11.6 H Immature Gran % (Auto) 0.7 H Neut % (Auto) 93.9 H Lymph % (Auto) 2.5 L [place] % (Auto) 2.7 Eos % (Auto) 0.0 Baso % (Auto) 0.2 Lymph # (Auto) 0.41 L [place] # (Auto) 0.5 Eos # (Auto) 0.0 Baso # (Auto) 0.0 Abs Immat Gran (auto) 0.12 H Absolute Neuts (auto) 15.5 H Absolute Nucleated RBC 0.000 Nucleated RBC % 0.0 Platelet Estimate Slightly decreased % Immature Plt Fraction 4.6 Hypochromasia 1+ Anisocytosis 1+ Roberto Cells 1+ Acanthocytes (Spur) 1+ Schistocytes Rare PT 19.9 H INR 1.6 APTT 37.6 H Sodium 139 Potassium 4.0 Chloride 109 H Carbon Dioxide 24 Anion Gap 6 BUN 22 H D Creatinine 1.30 Estim Creat Clear Calc 37 Estimated GFR 53 L Glucose 113 H POC Capillary Glucose Lactic Acid 3.7 H Calcium 9.0 Magnesium Total Bilirubin 0.8 AST 24 ALT 14 Alkaline Phosphatase 58 C-Reactive Protein Total Protein 7.0 Albumin 3.5 Procalcitonin Urine Color Dark yellow Urine Appearance Cloudy H Urine pH 5.5 Ur Specific [place] 1.028 Urine Protein 2+ H Urine Glucose (UA) Negative Urine Ketones 1+ H Ur Blood (Man) Negative Urine Nitrate Negative Urine Bilirubin 1+ H Urine Urobilinogen 1.0 Add Ur Microanalysis Reviewed Leukocyte Esterase Rfl Trace H Urine RBC 3-5 H Urine WBC 6-10 H Ur Squamous Epith Cells Occasional Urine Bacteria None seen Urine Casts 0-2 Nasal MRSA (PCR) Vancomycin Trough Influenza A (RT-PCR) Influenza B (RT-PCR) RSV (RT-PCR) SARS-CoV-2 RNA (RT-PCR) 05/04/24 05/04/24 05/04/24 18:38 20:14 20:29 WBC RBC Hgb Hct MCV MCH MCHC RDW Plt Count MPV Immature Gran % (Auto) Neut % (Auto) Lymph % (Auto) [place] % (Auto) Eos % (Auto) Baso % (Auto) Lymph # (Auto) [place] # (Auto) Eos # (Auto) Baso # (Auto) Abs Immat Gran (auto) Absolute Neuts (auto) Absolute Nucleated RBC Nucleated RBC % Platelet Estimate % Immature Plt Fraction Hypochromasia Anisocytosis Roberto Cells Acanthocytes (Spur) Schistocytes PT INR APTT Sodium Potassium Chloride Carbon Dioxide Anion Gap BUN Creatinine Estim Creat Clear Calc Estimated GFR Glucose POC Capillary Glucose Lactic Acid 2.1 H Calcium Magnesium Total Bilirubin AST ALT Alkaline Phosphatase C-Reactive Protein Total Protein Albumin Procalcitonin Urine Color Urine Appearance Urine pH Ur Specific [place] Urine Protein Urine Glucose (UA) Urine Ketones Ur Blood (Man) Urine Nitrate Urine Bilirubin Urine Urobilinogen Add Ur Microanalysis Leukocyte Esterase Rfl Urine RBC Urine WBC Ur Squamous Epith Cells Urine Bacteria Urine Casts Nasal MRSA (PCR) Detected A* Vancomycin Trough < 5.0 L Influenza A (RT-PCR) Negative Influenza B (RT-PCR) Negative RSV (RT-PCR) Negative SARS-CoV-2 RNA (RT-PCR) Negative 05/05/24 05/05/24 05/05/24 05:03 05:03 05:03 WBC 11.6 H RBC 3.31 L Hgb 9.5 L Hct 30.0 L MCV 90.6 MCH 28.7 MCHC 31.7 L RDW 15.9 H Plt Count 82 L 82 L MPV 12.1 H 12.1 H Immature Gran % (Auto) 0.6 H Neut % (Auto) 85.4 H Lymph % (Auto) 7.7 L [place] % (Auto) 5.1 Eos % (Auto) 0.9 Baso % (Auto) 0.3 Lymph # (Auto) 0.89 L [place] # (Auto) 0.6 Eos # (Auto) 0.1 Baso # (Auto) 0.0 Abs Immat Gran (auto) 0.07 H Absolute Neuts (auto) 9.9 H Absolute Nucleated RBC 0.000 Nucleated RBC % 0.0 Platelet Estimate % Immature Plt Fraction 6.5 Hypochromasia Anisocytosis Roberto Cells Acanthocytes (Spur) Schistocytes PT INR APTT Sodium Potassium Chloride Carbon Dioxide Anion Gap BUN Creatinine Estim Creat Clear Calc Estimated GFR Glucose POC Capillary Glucose Lactic Acid Calcium Magnesium Total Bilirubin AST ALT Alkaline Phosphatase C-Reactive Protein Total Protein Albumin Procalcitonin Urine Color Urine Appearance Urine pH Ur Specific [place] Urine Protein Urine Glucose (UA) Urine Ketones Ur Blood (Man) Urine Nitrate Urine Bilirubin Urine Urobilinogen Add Ur Microanalysis Leukocyte Esterase Rfl Urine RBC Urine WBC Ur Squamous Epith Cells Urine Bacteria Urine Casts Nasal MRSA (PCR) Vancomycin Trough Influenza A (RT-PCR) Influenza B (RT-PCR) RSV (RT-PCR) SARS-CoV-2 RNA (RT-PCR) 05/05/24 05/05/24 05/05/24 05:03 05:04 05:04 WBC RBC Hgb Hct MCV MCH MCHC RDW Plt Count MPV Immature Gran % (Auto) Neut % (Auto) Lymph % (Auto) [place] % (Auto) Eos % (Auto) Baso % (Auto) Lymph # (Auto) [place] # (Auto) Eos # (Auto) Baso # (Auto) Abs Immat Gran (auto) Absolute Neuts (auto) Absolute Nucleated RBC Nucleated RBC % Platelet Estimate % Immature Plt Fraction 6.6 Hypochromasia Anisocytosis Cash Cells Acanthocytes (Spur) Schistocytes PT INR APTT Sodium 141 Potassium 3.9 Chloride 117 H Carbon Dioxide 19 L Anion Gap 5 BUN 25 H Creatinine 1.10 1.10 Estim Creat Clear Calc 41 Estimated GFR Glucose POC Capillary Glucose Lactic Acid Calcium Magnesium Total Bilirubin AST ALT Alkaline Phosphatase C-Reactive Protein Total Protein Albumin Procalcitonin 12.1 Urine Color Urine Appearance Urine pH Ur Specific [place] Urine Protein Urine Glucose (UA) Urine Ketones Ur Blood (Man) Urine Nitrate Urine Bilirubin Urine Urobilinogen Add Ur Microanalysis Leukocyte Esterase Rfl Urine RBC Urine WBC Ur Squamous Epith Cells Urine Bacteria Urine Casts Nasal MRSA (PCR) Vancomycin Trough Influenza A (RT-PCR) Influenza B (RT-PCR) RSV (RT-PCR) SARS-CoV-2 RNA (RT-PCR) 05/05/24 05/05/24 05/05/24 05:04 05:04 08:27 WBC RBC Hgb Hct MCV MCH MCHC RDW Plt Count MPV Immature Gran % (Auto) Neut % (Auto) Lymph % (Auto) [place] % (Auto) Eos % (Auto) Baso % (Auto) Lymph # (Auto) [place] # (Auto) Eos # (Auto) Baso # (Auto) Abs Immat Gran (auto) Absolute Neuts (auto) Absolute Nucleated RBC Nucleated RBC % Platelet Estimate % Immature Plt Fraction Hypochromasia Anisocytosis Cash Cells Acanthocytes (Spur) Schistocytes PT INR APTT Sodium Potassium Chloride Carbon Dioxide Anion Gap BUN Creatinine Estim Creat Clear Calc 41 Estimated GFR > 60 > 60 Glucose 102 POC Capillary Glucose 91 Lactic Acid Calcium 7.6 L Magnesium 1.7 Total Bilirubin 0.4 AST 46 ALT 22 Alkaline Phosphatase 54 C-Reactive Protein 15.0 H Total Protein 5.0 L Albumin 2.4 L Procalcitonin Urine Color Urine Appearance Urine pH Ur Specific [place] Urine Protein Urine Glucose (UA) Urine Ketones Ur Blood (Man) Urine Nitrate Urine Bilirubin Urine Urobilinogen Add Ur Microanalysis Leukocyte Esterase Rfl Urine RBC Urine WBC Ur Squamous Epith Cells Urine Bacteria Urine Casts Nasal MRSA (PCR) Vancomycin Trough Influenza A (RT-PCR) Influenza B (RT-PCR) RSV (RT-PCR) SARS-CoV-2 RNA (RT-PCR)
[2024-05-05] MEDS: DOCUSATE SODIUM 100 MG CAPSULE PO (17:07)
[2024-05-05] MEDS: DOXYCYCLINE HYCLATE 100 MG TABLET PO (21:52)
[2024-05-05] MEDS: DONEPEZIL HCL 5 MG TABLET PO (21:52)
[2024-05-05] MEDS: VANCOMYCIN 1,250 MG/NS 250 ML 1,250 MG/250 ML BAG 166.67 MG IVPB (21:53)
[2024-05-06] VITALS (15 sets, daily range): BP systolic 102–159; BP diastolic 53–91; PULSE 60–84; RESP 16–20; TEMP 36.6–36.8; O2SAT 96–99
[2024-05-06] MEDS: SODIUM CHLORIDE 0.9% IV 1,000 ML 70 ML IV CONT ×2 (04:35→16:58)
[2024-05-06 04:45] LABS: Basophils Percent Auto 0.2 % (0.2-1.2); Eosinophils Percent Auto 0.1 % (0-4.4); Hematocrit 31.3 % (42.0-52.0); Hemoglobin 9.5 g/dL (14.0-18.0); Immature Granulocyte Absolute 0.06 K/mm3 (0.00-0.031); Immature Granulocyte Percent A 0.6 % (0-0.5); Immature Platelet Fraction Pct 7.2 % (0.9-11.2); Lymphocytes Absolute Auto 1.12 K/mm3 (0.9-3.2); Lymphocytes Percent Auto 10.3 % (18.3-44.2); Mean Corpuscular HGB Conc 30.4 g/dl (32-36); Mean Corpuscular Hemoglobin 28.7 pg (26-34); Mean Corpuscular Volume 94.6 fl (80-100); Mean Platelet Volume 11.8 fl (7.4-10.4); Monocytes Absolute Auto 0.8 K/mm3 (0.1-0.6); Monocytes Percent Auto 7.8 % (2.6-8.5); Neutrophils Absolute Auto 8.8 K/mm3 (1.3-6.7); Red Blood Count 3.31 M/mm3 (4.6-6.20); Red Cell Distribution Width 15.9 % (11.5-14.5); White Blood Count 10.8 K/mm3 (4.5-10.0)
[2024-05-06 04:55] LABS: Albumin Level 2.4 g/dL (3.5-5.1); Anion Gap 4 mmol/L (4-12); Blood Urea Nitrogen 24 mg/dL (9-20); Calcium 7.9 mg/dL (8.4-10.2); Carbon Dioxide 20 mmol/L (22-30); Chloride 115 mmol/L (98-107); Estimated CRCL calculation 55 ml/min; Estimated Glomerular Filt Rate > 60; Glucose 102 mg/dL (65-110); Magnesium 1.9 mg/dL (1.6-2.3); Phosphorus 2.5 mg/dL (2.5-4.5); Potassium 3.7 mmol/L (3.4-5.0); Sodium 139 mmol/L (137-145)
[2024-05-06 05:13] LABS: Anisocytosis 1+; Burr Cells 1+; Ovalocytes 1+; Platelet Count Result 71 k/mm3 (150-375); Platelet Estimate Decreased (Adequate); Poikilocytosis 1+; Schistocytes None Seen
[2024-05-06 06:01] LABS: Folic Acid 6.1 ng/mL (2.76->20)
[2024-05-06] MEDS: ATORVASTATIN 20 MG TABLET PO (08:40)
[2024-05-06] MEDS: polyethylene glycoL 3350 17 GM POWD.PACK PO (08:40)
[2024-05-06] MEDS: DOXYCYCLINE HYCLATE 100 MG TABLET PO ×2 (08:40→22:07)
[2024-05-06] MEDS: ASPIRIN 81 MG ENTERIC TABLET PO (08:40)
[2024-05-06] MEDS: DOCUSATE SODIUM 100 MG CAPSULE PO ×2 (08:40→16:52)
--- NOTE | 2024-05-06 16:27 | P.PNIM_ITS ---
Progress Note: A&P Assessment and Plan (1) Sepsis: Qualifiers: Sepsis acute organ dysfunction status: without acute organ dysfunction Sepsis type: sepsis due to unspecified organism Qualified Code(s): A41.9 - S epsis, unspecified organism Code(s): A41.9 - Sepsis, unspecified organism Status: Acute Assessment and Plan: Patient was here in February for AMS and sepsis from chest wall cellulitis. He was bacteremic with MRSA. JOSEPH (02/25/24) showing PM wires were infected. He ultimately was hospitalized at [place] then at a rehab facility. He was home for about 1-2 days before developing worsening confusion that prompted him to present to the ED here. CXR showing airspace opacities in the lower lung zones c/w with atelectasis vs PNA. He was febrile. Lactic acid was 3.7. WBC 16. He was tachypneic. BP was soft. All c/w sepsis. He was treated with appropriate fluid regiment. BCx collected and he was started on Rocephin and Azithromycin; Vanc was added. BCx (05/04) returned positive for Staph aureus from both aerobic and anaerobic sets. Source could be PNA. Consider endocarditis or old PM pocket. White count trending downward. Repeat BCx (05/05) Gram positive cocci in clusters isolated from both aerobic bottles Continue Vanco. Await ID and sensitivities. Cardiology consultd with plan for JOSEPH on Wednesday. CT Ch/A/P ordered and results pending. Resume metoprolol since BP better. (2) Bacteremia: Code(s): R78.81 - Bacteremia Status: Acute Assessment and Plan: As above (3) Pneumonia: Code(s): J18.9 - Pneumonia, unspecified organism Status: Acute Assessment and Plan: As above. Follow up on chest CT. (4) NANI (acute kidney injury): Code(s): N17.9 - Acute kidney failure, unspecified Status: Acute Assessment and Plan: Baseline creatinine is normal at 0.8. Creatinine 1.3 on admission IV fluids given and Cr trended down to baseline. Continue to monitor. (5) Pacemaker: Code(s): Z95.0 - Presence of cardiac pacemaker Status: Acute Assessment and Plan: Patient was here in February for AMS and sepsis from chest wall cellulitis. He was bacteremic with MRSA. JOSEPH (02/25/24) showing evidence of infective vegetation associated with the pacemaker lead/leads in the right atrium but no clear-cut evidence of valvular involvement with the vegetation however the JOSEPH was not of ideal quality. Patient followed up with his physician at [facility]. The infected device was removed. He had a temporary pacemaker until cleared and then had a permanent pacemaker placed in the left upper chest. Plan as above. (6) Aortic valve disease: Code(s): I35.9 - Nonrheumatic aortic valve disorder, unspecified Status: Acute Assessment and Plan: Patient with aortic valve disease s/p AVR with aortic root replacement. JOSEPH planned. (7) Severe protein-calorie malnutrition: Code(s): E43 - Unspecified severe protein-calorie malnutrition Status: Acute Assessment and Plan: Patient with severe protein calorie malnutrition related to chronic loss of appetite, recent hospitalization, weight loss of 10% over the past 3 months and intake less than 75% of needs for greater than 1 month. He also has severe muscle wasting and severe fat loss. Continue supplements. Dietary consult. (8) Altered mental status: Code(s): R41.82 - Altered mental status, unspecified Status: Acute Assessment and Plan: Patient has underlying dementia and is on Aricept which will resume. Patient had altered mental status most likely related to pneumonia and bacteremia. CT the brain showing no acute findings mental status better. Monitor mental status. Plan TCP - Not noted before. B12 level okay. Probably related to sepsis. No Heparin for now. Will hold Eliquis until this improves. DVT prophylaxis - SCDs Code status - full code Disp - start PT/OT Subjective Date/time seen: 05/06/24 16:27 Interval history: 83yo male with hx of infected PM, dementia and HTN here for altered mental status. Patietn is alert but confused. at bedside. No complaints. Exam Narrative: AF 98.0 159/72 60 18 97%ra Gen - NARD Chest - few basilar rhonchi o/w clear. Healing left upper chest PM site without pain or bogginess. Right upper chest pocket well healed and not tender today. lower sternal dried eschar but no CW erythema CV - RRR S1/S2. Tele showing sinus rhythm and occasionally paced Abd - Soft, NT/ND, Positive BS Ext - No pedal edema Psych - Nml mood and affect Skin - Warm and dry. Objective Data Vital Signs Vital Signs: Vital Signs - 24 hr 05/05/24 18:00 05/05/24 20:00 05/05/24 20:00 Temperature 97.7 F Pulse Rate 60 62 61 Respiratory Rate 24 H Blood Pressure 123/86 Pulse Oximetry 98 Oxygen Delivery 05/05/24 21:40 05/05/24 22:00 05/06/24 00:00 Temperature 98.2 F Pulse Rate 81 60 Respiratory Rate 16 Blood Pressure 122/91 H Pulse Oximetry 96 Oxygen Delivery Room Air 05/06/24 00:00 05/06/24 00:10 05/06/24 02:00 Temperature Pulse Rate 68 60 Respiratory Rate Blood Pressure Pulse Oximetry Oxygen Delivery Room Air 05/06/24 04:00 05/06/24 04:00 05/06/24 04:00 Temperature 97.9 F Pulse Rate 67 79 Respiratory Rate 20 Blood Pressure 132/72 Pulse Oximetry 99 Oxygen Delivery Room Air 05/06/24 06:00 05/06/24 07:59 05/06/24 08:00 Temperature 98.1 F Pulse Rate 63 80 75 Respiratory Rate 20 Blood Pressure 125/63 Pulse Oximetry 96 Oxygen Delivery 05/06/24 10:00 05/06/24 11:48 05/06/24 12:00 Temperature 98 F Pulse Rate 66 84 63 Respiratory Rate 18 Blood Pressure 102/71 Pulse Oximetry 97 Oxygen Delivery 05/06/24 14:00 05/06/24 15:55 Temperature 98 F Pulse Rate 80 60 Respiratory Rate 18 Blood Pressure 159/72 H Pulse Oximetry 97 Oxygen Delivery Intake/Output Intake/Output: Intake & Output 05/03/24 05/04/24 05/05/24 05/06/24 23:59 23:59 23:59 23:59 Intake Total 3600 3354.6 1710 Output Total 750 300 Balance 3600 2604.6 1410 Meds/Results Medications: Active Medications Generic Name Dose Route Start Last Admin Trade Name Freq PRN Reason Stop Dose Admin Acetaminophen 650 mg 05/04/24 18:08 Acetaminophen 325 Mg Tablet PO Q4H PRN Mild Pain (1-3) or Fever Hydrocodone Bitart/Acetaminophen 1 tab 05/04/24 18:08 Hydrocodone/Acetaminophen (*Crx) 5-325 Mg Tablet PO Q4H PRN Pain Rated 4-6 Aspirin 81 mg 05/06/24 09:00 05/06/24 08:40 Aspirin 81 Mg Enteric Tablet PO 81 mg DAILY DARIUSZ Administration Atorvastatin Calcium 20 mg 05/06/24 09:00 05/06/24 08:40 Atorvastatin 20 Mg Tablet PO 20 mg DAILY DARIUSZ Administration Docusate Sodium 100 mg 05/05/24 17:00 05/06/24 08:40 Docusate Sodium 100 Mg Capsule PO 100 mg BID DARIUSZ Administration Donepezil HCl 5 mg 05/05/24 21:00 05/05/24 21:52 Donepezil Hcl 5 Mg Tablet PO 5 mg QHS DARIUSZ Administration Doxycycline Hyclate 100 mg 05/05/24 21:00 05/06/24 08:40 Doxycycline Hyclate 100 Mg Tablet PO 05/09/24 09:01 100 mg Q12HR DARIUSZ Administration Enoxaparin Sodium 40 mg 05/05/24 09:00 Enoxaparin 40 Mg/0.4 Ml Syringe SUB-Q DAILY DARIUSZ Ceftriaxone Sodium 1 gm in 50 mls @ 100 mls/hr 05/05/24 17:00 05/05/24 17:36 Rocephin 1 Gm/Ns 50 Ml IVPB Infused Q24H DARIUSZ Infusion Sodium Chloride 1,000 mls @ 70 mls/hr 05/04/24 18:10 05/06/24 04:35 Normal Saline Iv IV CONT 70 mls/hr .[id number] DARIUSZ Administration Vancomycin HCl 1,250 mg in 250 mls @ 166.667 mls/hr 05/05/24 21:00 05/05/24 23:25 Vancomycin 1,250 Mg/Ns 250 Ml IVPB Infused Q24H DARIUSZ Infusion Polyethylene Glycol 17 gm 05/06/24 09:00 05/06/24 08:40 Polyethylene Glycol 3350 17 Gm Powd.Pack PO 17 gm DAILY DARIUSZ Administration Radiology Results: ITS Impressions Chest X-Ray 05/04/24 17:12 IMPRESSION: 1. Airspace opacities in the lower lung zones, consistent with atelectasis versus pneumonia. Head CT 05/05/24 10:52 IMPRESSION: 1. No acute intracranial process. 2. Stable age-related changes including moderate diffuse volume loss and mild scattered white matter hypoattenuation consistent with chronic small vessel ischemic disease. Labs Labs: Laboratory Results - last 24 hr 05/06/24 04:37 WBC 10.8 H RBC 3.31 L Hgb 9.5 L Hct 31.3 L MCV 94.6 MCH 28.7 MCHC 30.4 L RDW 15.9 H Plt Count 71 L MPV 11.8 H Immature Gran % (Auto) 0.6 H Neut % (Auto) 81.0 H Lymph % (Auto) 10.3 L [place] % (Auto) 7.8 Eos % (Auto) 0.1 Baso % (Auto) 0.2 Lymph # (Auto) 1.12 [place] # (Auto) 0.8 H Eos # (Auto) 0.0 Baso # (Auto) 0.0 Abs Immat Gran (auto) 0.06 H Absolute Neuts (auto) 8.8 H Absolute Nucleated RBC 0.000 Nucleated RBC % 0.0 Platelet Estimate Decreased % Immature Plt Fraction 7.2 Poikilocytosis 1+ Anisocytosis 1+ Ovalocytes 1+ Creole Cells 1+ Schistocytes None seen Sodium 139 Potassium 3.7 Chloride 115 H Carbon Dioxide 20 L Anion Gap 4 BUN 24 H Creatinine 0.80 Estim Creat Clear Calc 55 Estimated GFR > 60 Glucose 102 Calcium 7.9 L Phosphorus 2.5 Magnesium 1.9 Albumin 2.4 L Vitamin B12 412.0 Folate 6.1
[2024-05-06] MEDS: METOPROLOL TARTRATE 25 MG TABLET PO (16:52)
[2024-05-06 20:47] LABS: Vancomycin Trough 8.8 ug/mL (10.0-20.0)
[2024-05-06] MEDS: DONEPEZIL HCL 5 MG TABLET PO (22:07)
[2024-05-06] MEDS: VANCOMYCIN 1,250 MG/NS 250 ML 1,250 MG/250 ML BAG 166.67 MG IVPB (22:10)
[2024-05-07] VITALS (14 sets, daily range): BP systolic 100–130; BP diastolic 55–81; PULSE 58–106; RESP 15–18; TEMP 36.5–37.6; O2SAT 94–100
[2024-05-07 05:05] LABS: Basophils Percent Auto 0.2 % (0.2-1.2); Hematocrit 28.9 % (42.0-52.0); Immature Granulocyte Absolute 0.09 K/mm3 (0.00-0.031); Immature Granulocyte Percent A 1.1 % (0-0.5); Immature Platelet Fraction Pct 8.7 % (0.9-11.2); Lymphocytes Absolute Auto 1.17 K/mm3 (0.9-3.2); Mean Corpuscular HGB Conc 31.1 g/dl (32-36); Mean Corpuscular Hemoglobin 28.3 pg (26-34); Mean Corpuscular Volume 90.9 fl (80-100); Mean Platelet Volume 12.3 fl (7.4-10.4); Monocytes Absolute Auto 0.8 K/mm3 (0.1-0.6); Monocytes Percent Auto 9.1 % (2.6-8.5); Neutrophils Absolute Auto 6.3 K/mm3 (1.3-6.7); Neutrophils Percent Auto 75.6 % (45.5-73.1); Platelet Count Result 61 k/mm3 (150-375); Red Blood Count 3.18 M/mm3 (4.6-6.20); Red Cell Distribution Width 15.9 % (11.5-14.5); White Blood Count 8.3 K/mm3 (4.5-10.0)
[2024-05-07 05:13] LABS: Alanine Aminotransferase 18 U/L (6-50); Albumin Level 2.4 g/dL (3.5-5.1); Alkaline Phosphatase 60 U/L (38-126); Anion Gap 1 mmol/L (4-12); Aspartate Amino Transferase 29 U/L (17-59); Bilirubin,Total 0.6 mg/dL (0.2-1.3); Blood Urea Nitrogen 22 mg/dL (9-20); Calcium 8.3 mg/dL (8.4-10.2); Carbon Dioxide 24 mmol/L (22-30); Chloride 116 mmol/L (98-107); Estimated CRCL calculation 57 ml/min; Estimated Glomerular Filt Rate > 60; Glucose 113 mg/dL (65-110); Potassium 4.2 mmol/L (3.4-5.0); Sodium 141 mmol/L (137-145)
[2024-05-07 05:34] LABS: Platelet Estimate Decreased (Adequate); Schistocytes None Seen
[2024-05-07] MEDS: DOCUSATE SODIUM 100 MG CAPSULE PO ×2 (09:26→18:06)
[2024-05-07] MEDS: ATORVASTATIN 20 MG TABLET PO (09:26)
[2024-05-07] MEDS: ASPIRIN 81 MG ENTERIC TABLET PO (09:26)
[2024-05-07] MEDS: VANCOMYCIN 1,250 MG/NS 250 ML 1,250 MG/250 ML BAG 166 MG IVPB ×2 (09:27→20:30)
[2024-05-07] MEDS: METOPROLOL TARTRATE 25 MG TABLET PO (09:27)
[2024-05-07] MEDS: DOXYCYCLINE HYCLATE 100 MG TABLET PO ×2 (09:27→20:26)
[2024-05-07] MEDS: polyethylene glycoL 3350 17 GM POWD.PACK PO (09:27)
[2024-05-07] MEDS: SODIUM CHLORIDE 0.9% IV 1,000 ML 70 ML IV CONT (09:31)
--- NOTE | 2024-05-07 16:53 | PM.IMPN ---
Progress Note: A&P Assessment and Plan (1) Sepsis: Qualifiers: Sepsis acute organ dysfunction status: without acute organ dysfunction Sepsis type: sepsis due to unspecified organism Qualified Code(s): A41.9 - Sepsis, unspecified organism Code(s): A41.9 - Sepsis, unspecified organism Status: Acute Assessment and Plan: Patient was here in February for AMS and sepsis from chest wall cellulitis. He was bacteremic with MRSA. JOSEPH (02/25/24) showing PM wires were infected. He ultimately was hospitalized at [facility] then at a rehab facility. He was home for about 1-2 days before developing worsening confusion that prompted him to present to the ED here. CXR showing airspace opacities in the lower lung zones c/w with atelectasis vs PNA. He was febrile. Lactic acid was 3.7. WBC 16. He was tachypneic. BP was soft. All c/w sepsis. He was treated with appropriate fluid regiment. BCx collected and he was started on Rocephin and Azithromycin; Vanc was added. CT Ch/A/P with contrast showing moderate bilateral pleural effusions with dependent atelectasis, large GS in the GB fundus, diffuse atherosclerotic disease. 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 BCx (05/04) positive for MRSA Source could be PNA. Consider endocarditis, current PM, PM wires or old PM pocket. White count trended down and now normal BCx (05/05) positive for MRSA Continue Vanco. Cardiology consulted with plan for JOSEPH tomorrow Repeat BCx. Remove Valdez. UCx negative so will stop Rocephin (2) Bacteremia: Code(s): R78.81 - Bacteremia Status: Acute Assessment and Plan: As above (3) Pneumonia: Code(s): J18.9 - Pneumonia, unspecified organism Status: Acute Assessment and Plan: As above. (4) NANI (acute kidney injury): Code(s): N17.9 - Acute kidney failure, unspecified Status: Acute Assessment and Plan: Baseline creatinine is normal at 0.8. Creatinine 1.3 on admission IV fluids given and Cr trended down to baseline. Stop IV fluids Continue to monitor. (5) Pacemaker: Code(s): Z95.0 - Presence of cardiac pacemaker Status: Acute Assessment and Plan: Patient was here in February for AMS and sepsis from chest wall cellulitis. He was bacteremic with MRSA. JOSEPH (02/25/24) showing evidence of infective vegetation associated with the pacemaker lead/leads in the right atrium but no clear-cut evidence of valvular involvement with the vegetation however the JOSEPH was not of ideal quality. Patient followed up with his physician at [facility]. The infected device was removed. He had a temporary pacemaker until cleared and then had a permanent pacemaker placed in the left upper chest. Plan as above. (6) Aortic valve disease: Code(s): I35.9 - Nonrheumatic aortic valve disorder, unspecified Status: Acute Assessment and Plan: Patient with aortic valve disease s/p AVR with aortic root replacement. JOSEPH planned. (7) Severe protein-calorie malnutrition: Code(s): E43 - Unspecified severe protein-calorie malnutrition Status: Acute Assessment and Plan: Patient with severe protein calorie malnutrition related to chronic loss of appetite, recent hospitalization, weight loss of 10% over the past 3 months and intake less than 75% of needs for greater than 1 month. He also has severe muscle wasting and severe fat loss. Continue supplements. Dietary consult. (8) Altered mental status: Code(s): R41.82 - Altered mental status, unspecified Status: Acute Assessment and Plan: Patient has underlying dementia and is on Aricept which was resumed. Patient had altered mental status most likely related to pneumonia and bacteremia. CT the brain showing no acute findings Mental status better. Monitor Plan TCP - Not noted before. B12 level okay. Probably related to sepsis. No Heparin for now. Will hold Eliquis until this improves. Check Ab DVT prophylaxis - SCDs Code status - full code Disp - PT/OT Subjective Date/time seen: 05/07/24 16:53 Interval history: 83yo male with hx of infected PM, dementia and HTN here for altered mental status. Patient is mor oriented today. He denies CP or SOB. He feels well. Exam Narrative: AF 98 119/60 60 18 97%ra Gen - NARD Chest - CTA bilaterally, nml RR CV - RRR S1/S2. Tele showing PVCs but mostly paced Abd - Soft, NT/ND, Positive BS - Valdez secured draining clear yellow urine Ext - No pedal edema Psych - Nml mood and affect Skin - Warm and dry. Objective Data Vital Signs Vital Signs: Vital Signs - 24 hr 05/06/24 18:00 05/06/24 20:00 05/06/24 20:00 Temperature 98.2 F Pulse Rate 66 72 71 Respiratory Rate 19 Blood Pressure 117/53 L Pulse Oximetry 98 Oxygen Delivery 05/06/24 20:30 05/06/24 22:00 05/07/24 00:00 Temperature 97.7 F Pulse Rate 66 60 Respiratory Rate 18 Blood Pressure 100/55 L Pulse Oximetry 100 Oxygen Delivery Room Air 05/07/24 00:00 05/07/24 00:20 05/07/24 02:00 Temperature Pulse Rate 79 60 Respiratory Rate Blood Pressure Pulse Oximetry Oxygen Delivery Room Air 05/07/24 04:00 05/07/24 04:00 05/07/24 04:00 Temperature 97.8 F Pulse Rate 61 60 Respiratory Rate 18 Blood Pressure 122/65 Pulse Oximetry 100 Oxygen Delivery Room Air 05/07/24 07:44 05/07/24 08:00 05/07/24 08:00 Temperature 98.5 F Pulse Rate 64 60 Respiratory Rate 18 Blood Pressure 119/71 Pulse Oximetry 94 Oxygen Delivery Room Air 05/07/24 09:27 05/07/24 09:53 05/07/24 10:00 Temperature Pulse Rate 61 61 Respiratory Rate Blood Pressure Pulse Oximetry Oxygen Delivery Room Air 05/07/24 11:49 05/07/24 12:00 05/07/24 12:00 Temperature 98.7 F Pulse Rate 106 H 60 Respiratory Rate 18 Blood Pressure 120/71 Pulse Oximetry 97 Oxygen Delivery Room Air 05/07/24 12:00 05/07/24 14:00 05/07/24 16:00 Temperature 98 F Pulse Rate 62 58 L Respiratory Rate 18 Blood Pressure 119/60 Pulse Oximetry 97 97 Oxygen Delivery Room Air 05/07/24 16:00 05/07/24 16:00 Temperature Pulse Rate 60 Respiratory Rate Blood Pressure Pulse Oximetry Oxygen Delivery Room Air Intake/Output Intake/Output: Intake & Output 05/04/24 05/05/24 05/06/24 05/07/24 23:59 23:59 23:59 23:59 Intake Total 3600 3354.6 4078.5 1573.3 Output Total 750 900 650 Balance 3600 2604.6 3178.5 923.3 Meds/Results Medications: Active Medications Generic Name Dose Route Start Last Admin Trade Name Freq PRN Reason Stop Dose Admin Acetaminophen 650 mg 05/04/24 18:08 Acetaminophen 325 Mg Tablet PO Q4H PRN Mild Pain (1-3) or Fever Hydrocodone Bitart/Acetaminophen 1 tab 05/04/24 18:08 Hydrocodone/Acetaminophen (*Crx) 5-325 Mg Tablet PO Q4H PRN Pain Rated 4-6 Aspirin 81 mg 05/06/24 09:00 05/07/24 09:26 Aspirin 81 Mg Enteric Tablet PO 81 mg DAILY DARIUSZ Administration Atorvastatin Calcium 20 mg 05/06/24 09:00 05/07/24 09:26 Atorvastatin 20 Mg Tablet PO 20 mg DAILY DARIUSZ Administration Docusate Sodium 100 mg 05/05/24 17:00 05/07/24 09:26 Docusate Sodium 100 Mg Capsule PO 100 mg BID DARIUSZ Administration Donepezil HCl 5 mg 05/05/24 21:00 05/06/24 22:07 Donepezil Hcl 5 Mg Tablet PO 5 mg QHS DARIUSZ Administration Doxycycline Hyclate 100 mg 05/05/24 21:00 05/07/24 09:27 Doxycycline Hyclate 100 Mg Tablet PO 05/09/24 09:01 100 mg Q12HR DARIUSZ Administration Enoxaparin Sodium 40 mg 05/05/24 09:00 Enoxaparin 40 Mg/0.4 Ml Syringe SUB-Q DAILY DARIUSZ Ceftriaxone Sodium 1 gm in 50 mls @ 100 mls/hr 05/05/24 17:00 05/06/24 18:09 Rocephin 1 Gm/Ns 50 Ml IVPB Infused Q24H DARIUSZ Infusion Sodium Chloride 1,000 mls @ 70 mls/hr 05/04/24 18:10 05/07/24 09:31 Normal Saline Iv IV CONT 70 mls/hr .[id number] DARIUSZ Administration Vancomycin HCl 1,250 mg in 250 mls @ 166.667 mls/hr 05/06/24 21:00 05/07/24 09:27 Vancomycin 1,250 Mg/Ns 250 Ml IVPB 166 mls/hr Q12H DARIUSZ Administration Metoprolol Tartrate 25 mg 05/06/24 16:40 05/07/24 09:27 Metoprolol Tartrate 25 Mg Tablet PO 25 mg QAM DARIUSZ Administration Polyethylene Glycol 17 gm 05/06/24 09:00 05/07/24 09:27 Polyethylene Glycol 3350 17 Gm Powd.Pack PO 17 gm DAILY DARIUSZ Administration Radiology Results: ITS Impressions Chest X-Ray 05/04/24 17:12 IMPRESSION: 1. Airspace opacities in the lower lung zones, consistent with atelectasis versus pneumonia. Head CT 05/05/24 10:52 IMPRESSION: 1. No acute intracranial process. 2. Stable age-related changes including moderate diffuse volume loss and mild scattered white matter hypoattenuation consistent with chronic small vessel ischemic disease. Chest/Abdomen/Pelvis CT 05/06/24 16:14 IMPRESSION: Status post sternotomy 3.6 cm posterior aortic arch aneurysm; no thoracic aortic dissection Moderate bilateral pleural effusions, compressive atelectasis of both lower lobes and mild dependent atelectasis of the lingula and middle lobe Interval mild prominence of the right paratracheal and aortopulmonary window nodes since 02/20/2024, likely reactive Cholelithiasis Bladder wall thickening; this may be due to prostatomegaly, cystitis is not excluded Severe diverticulosis of the left colon; no evidence of diverticulitis Labs Labs: Laboratory Results - last 24 hr 05/06/24 05/07/24 20:05 04:49 WBC 8.3 RBC 3.18 L Hgb 9.0 L Hct 28.9 L MCV 90.9 MCH 28.3 MCHC 31.1 L RDW 15.9 H Plt Count 61 L MPV 12.3 H Immature Gran % (Auto) 1.1 H Neut % (Auto) 75.6 H Lymph % (Auto) 14.0 L [place] % (Auto) 9.1 H Eos % (Auto) 0.0 Baso % (Auto) 0.2 Lymph # (Auto) 1.17 [place] # (Auto) 0.8 H Eos # (Auto) 0.0 Baso # (Auto) 0.0 Abs Immat Gran (auto) 0.09 H Absolute Neuts (auto) 6.3 Absolute Nucleated RBC 0.000 Nucleated RBC % 0.0 Platelet Estimate Decreased % Immature Plt Fraction 8.7 Schistocytes None seen Sodium 141 Potassium 4.2 Chloride 116 H Carbon Dioxide 24 Anion Gap 1 L BUN 22 H Creatinine 0.80 Estim Creat Clear Calc 57 Estimated GFR > 60 Glucose 113 H Calcium 8.3 L Magnesium 2.0 Total Bilirubin 0.6 AST 29 ALT 18 Alkaline Phosphatase 60 Total Protein 5.0 L Albumin 2.4 L Vancomycin Trough 8.8 L
--- NOTE | 2024-05-07 18:46 | PC.NURSE ---
This patient, Tom Garner, was transferred to [[facility]] on 05/07/24 at 1846. Personal belongings sent with patient. Report given to [Aarti PEREZ]. Appropriate documentation sent with patient.
--- NOTE | 2024-05-07 18:48 | PC.NURSE ---
This patient, Tom Garner, was received from [imu ] on 05/07/24 at 1850. Patient/family oriented to unit policies and routines. report from montez
[2024-05-07] MEDS: DONEPEZIL HCL 5 MG TABLET PO (20:23)
[2024-05-07] MEDS: QUEtiapine FUMARATE 25 MG TABLET 75 MG PO (22:50)
[2024-05-08] VITALS (8 sets, daily range): BP systolic 95–136; BP diastolic 57–99; PULSE 59–92; RESP 17–23; TEMP 36.2–36.7; O2SAT 90–97
[2024-05-08 08:22] LABS: Basophils Percent Auto 0.3 % (0.2-1.2); Eosinophils Absolute Auto 0.1 K/mm3 (0-0.3); Eosinophils Percent Auto 1.7 % (0-4.4); Hematocrit 27.7 % (42.0-52.0); Hemoglobin 8.8 g/dL (14.0-18.0); Immature Granulocyte Absolute 0.03 K/mm3 (0.00-0.031); Immature Granulocyte Percent A 0.5 % (0-0.5); Immature Platelet Fraction Pct 6.8 % (0.9-11.2); Lymphocytes Absolute Auto 0.89 K/mm3 (0.9-3.2); Lymphocytes Percent Auto 14.9 % (18.3-44.2); Mean Corpuscular HGB Conc 31.8 g/dl (32-36); Mean Corpuscular Hemoglobin 28.2 pg (26-34); Mean Corpuscular Volume 88.8 fl (80-100); Mean Platelet Volume 11.9 fl (7.4-10.4); Monocytes Absolute Auto 0.8 K/mm3 (0.1-0.6); Monocytes Percent Auto 12.9 % (2.6-8.5); Neutrophils Absolute Auto 4.2 K/mm3 (1.3-6.7); Neutrophils Percent Auto 69.7 % (45.5-73.1); Platelet Count Result 65 k/mm3 (150-375); Red Blood Count 3.12 M/mm3 (4.6-6.20); Red Cell Distribution Width 15.9 % (11.5-14.5)
[2024-05-08 08:47] LABS: Anion Gap 2 mmol/L (4-12); Blood Urea Nitrogen 23 mg/dL (9-20); Calcium 8.3 mg/dL (8.4-10.2); Carbon Dioxide 24 mmol/L (22-30); Chloride 115 mmol/L (98-107); Estimated CRCL calculation 52 ml/min; Estimated Glomerular Filt Rate > 60; Glucose 89 mg/dL (65-110); Potassium 3.5 mmol/L (3.4-5.0); Sodium 141 mmol/L (137-145)
[2024-05-08] MEDS: METOPROLOL TARTRATE 25 MG TABLET PO (09:04)
[2024-05-08] MEDS: DOXYCYCLINE HYCLATE 100 MG TABLET PO ×2 (09:04→21:13)
[2024-05-08] MEDS: ATORVASTATIN 20 MG TABLET PO (09:05)
[2024-05-08] MEDS: polyethylene glycoL 3350 17 GM POWD.PACK PO (09:05)
[2024-05-08] MEDS: ASPIRIN 81 MG ENTERIC TABLET PO (09:05)
[2024-05-08] MEDS: DOCUSATE SODIUM 100 MG CAPSULE PO ×2 (09:05→16:49)
[2024-05-08 09:09] LABS: Vancomycin Trough 18.5 ug/mL (10.0-20.0)
[2024-05-08] MEDS: VANCOMYCIN 1,250 MG/NS 250 ML 1,250 MG/250 ML BAG 166 MG IVPB ×2 (10:36→21:14)
--- NOTE | 2024-05-08 12:00 | ECHO_ITS ---
Patient Info Name: Tom Garner Age: 83 years : 1940 Gender: Male Ht: 68 in Wt: 151 lbs BSA: 1.82 m2 Exam Date: 05/08/2024 1:15 PM Exam Location: Echo Lab Patient Status: Inpatient Admit Date: 05/05/2024 Staff Ordering Physician: Tony Niño MD ([email or web address]/[email or web address]) Auto Body Man: JESSIE Attending Provider: Dennis Hermosillo MD Exam Type: CA echo transesophageal Procedure Details The patient arrived in a fasting state after obtaining informed consent. The transesophageal probe was passed into the posterior pharynx, mid-esophagus, distal esophagus, and gastric fundus. Imaging was performed at multiple levels. The patient tolerated the procedure well and there were no complications. The patient was transferred out of the examination area in satisfactory condition. Summary 1. There are no vegetations on the visualized valves or the pacemaker leads. Left Ventricle The left ventricle is normal in size and systolic function. Right Ventricle There is a pacemaker lead with no evidence of vegetation. Left Atria The left atrium is dilated. Right Atria The right atrium is dilated. There is a pacemaker lead in the right atrium with no evidence of vegetation. Atrial Septum The atrial septum is normal. Atrial Appendage There is no thrombus in the left atrial appendage. PW of left atrial appendage showed a velocity of 62.9cm/s. Aortic Valve There is a bioprosthetic valve in place that is opening well with no evidence of vegetation. There is trace aortic valve regurgitation. Pulmonic Valve The pulmonic valve is not well visualized. There is no color Doppler evidence of pulmonic valve regurgitation. Mitral Valve The mitral valve is sclerotic and there is mild mitral regurgitation with 2 distinct jets. Tricuspid Valve The tricuspid valve is normal. Pericardium/Pleural There is no pericardial effusion. Aorta There is no atherosclerotic plaque in visualized portions of the aorta. Report Signatures
--- NOTE | 2024-05-08 12:58 | P.PNAN_ITS ---
Anes - Initial Pre Proc Eval Procedure: Operation Date: 05/08/24 12:00 Proposed Procedures p Trans Esophageal Echo - Tony Niño MD Date/Time: 05/08/24 12:58 Surgeon: Dennis Hermosillo MD Pre Op Diagnosis: Sepsis/Pneumonia/Altered Mental Status Patient Data Age: 83 Gender: M Height: 1.73 m Weight: 68.6 kg Last Vital Signs Temp 36.2 C L 05/08/24 06:00 Pulse 60 05/08/24 09:04 Resp 20 05/08/24 06:00 BP 110/66 05/08/24 06:00 Pulse Ox 94 05/08/24 06:00 O2 Del Method Room Air 05/08/24 11:06 Allergies Allergy/AdvReac Type Severity Reaction Status Date / Time No Known Allergies Allergy Verified 05/04/24 17:55 Home Medications ?Medication ?Instructions ?Recorded ?Confirmed ?Type apixaban 5 mg tablet (Eliquis) 5 mg PO BID 02/20/24 05/04/24 History atorvastatin 20 mg tablet 20 mg PO DAILY 02/20/24 05/04/24 History donepezil 5 mg tablet 5 mg PO QHS 02/20/24 05/04/24 History metoprolol tartrate 25 mg tablet 25 mg PO QAM 02/20/24 05/04/24 History acetaminophen 500 mg capsule 500 mg PO Q6H PRN pain 05/04/24 05/04/24 History aspirin 81 mg tablet,delayed 81 mg PO DAILY 05/04/24 05/04/24 History release (Adult Aspirin Regimen) docusate sodium 100 mg capsule 100 mg PO BID 05/04/24 05/04/24 History niacin 500 mg capsule,extended 500 mg PO HS 05/04/24 05/04/24 History release polyethylene glycol 3350 17 17 g PO DAILY 05/04/24 05/04/24 History gram/dose oral powder (Miralax) Laboratory Tests 05/08/24 05/08/24 08:08 08:09 WBC 6.0 K/mm3 (4.5-10.0) RBC 3.12 L M/mm3 (4.6-6.20) Hgb 8.8 L g/dL (14.0-18.0) Hct 27.7 L % (42.0-52.0) MCV 88.8 fl (80-100) MCH 28.2 pg (26-34) MCHC 31.8 L g/dl (32-36) RDW 15.9 H % (11.5-14.5) Plt Count 65 L k/mm3 (150-375) MPV 11.9 H fl (7.4-10.4) Immature Gran % (Auto) 0.5 % (0-0.5) Neut % (Auto) 69.7 % (45.5-73.1) Lymph % (Auto) 14.9 L % (18.3-44.2) [place] % (Auto) 12.9 H % (2.6-8.5) Eos % (Auto) 1.7 % (0-4.4) Baso % (Auto) 0.3 % (0.2-1.2) Lymph # (Auto) 0.89 L K/mm3 (0.9-3.2) [place] # (Auto) 0.8 H K/mm3 (0.1-0.6) Eos # (Auto) 0.1 K/mm3 (0-0.3) Baso # (Auto) 0.0 K/mm3 (0.0-0.1) Abs Immat Gran (auto) 0.03 K/mm3 (0.00-0.031) Absolute Neuts (auto) 4.2 K/mm3 (1.3-6.7) Absolute Nucleated RBC 0.000 K/mm3 (0.0-0.012) Nucleated RBC % 0.0 % (0.0-0.2) % Immature Plt Fraction 6.8 % (0.9-11.2) Sodium 141 mmol/L (137-145) Potassium 3.5 mmol/L (3.4-5.0) Chloride 115 H mmol/L (98-107) Carbon Dioxide 24 mmol/L (22-30) Anion Gap 2 L mmol/L (4-12) BUN 23 H mg/dL (9-20) Creatinine 0.90 mg/dL (0.7-1.3) Estim Creat Clear Calc 52 ml/min Estimated GFR > 60 (59 - ) Glucose 89 mg/dL (65-110) Calcium 8.3 L mg/dL (8.4-10.2) Vancomycin Trough 18.5 ug/mL (10.0-20.0) Direct Plt-Bound IgG Ab Pending Heparin-induced Plt Ab Pending Hep-Induced Plt Ab Cmmt Pending Patient hx anesthesia problems: none Family hx anesthesia problems: none Results Review: All pre-operative results and documents have been reviewed as part of the pre- operative evaluation. [facility] Past Medical History Medical History Pacemaker Aortic valve disease s/p AVR and aortic root replacement CAD (coronary artery disease) CABG 2000 Essential (primary) hypertension Family History Family History Sibling Malignant neoplasm of prostate Mother Family history of heart disease in male family member before age 55 Father Family history of heart disease in male family member before age 55 Social History Social History Smoking status: Former smoker Tobacco type: cigarettes Alcohol intake: never Substance use: never Do You Feel Safe in your Home?: Yes Lack of Transportation: No Lack of Food: Never True Current Housing: I Have Housing Concerned About Future Housing: No Difficulty Paying Gas/Electric Bills: No Difficulty Paying for Meds: No Currently Unemployed: No Education: High School Diploma/GED Difficulty w/ Childcare or Family Care: No Spiritual care concerns: No Anes - Eval Final PreProcedure Day of Procedure 05/08/24 12:58 Patient weight: normal Heart: irregular rhythm Lungs: clear to auscultation Airway: Mallampati scale class II Neurological: alert and oriented Last oral intake: >/= 8 hours ASA classification: III Emergent: no Anesthetic plan: proceed Anesthesia type and monitoring: general GIVS and standard monitoring Results Review: All pre-operative results and documents have been reviewed as part of the pre- operative evaluation. Informed Consent: The patient's anesthetic plan and its attendant risks and benefits were discussed with the patient/family/POA. Questions were solicited and answers provided to the satisfaction of the patient/family/POA.
--- NOTE | 2024-05-08 13:57 | PM.IMPN ---
Progress Note: A&P Assessment and Plan (1) Sepsis: Qualifiers: Sepsis acute organ dysfunction status: without acute organ dysfunction Sepsis type: sepsis due to unspecified organism Qualified Code(s): A41.9 - Sepsis, unspecified organism Code(s): A41.9 - Sepsis, unspecified organism Status: Acute Assessment and Plan: Patient was here in February for AMS and sepsis from chest wall cellulitis. He was bacteremic with MRSA. JOSEPH (02/25/24) showing PM wires were infected. He ultimately was hospitalized at [facility] then at a rehab facility. He was home for about 1-2 days before developing worsening confusion that prompted him to present to the ED here. CXR showing airspace opacities in the lower lung zones c/w with atelectasis vs PNA. He was febrile. Lactic acid was 3.7. WBC 16. He was tachypneic. BP was soft. All c/w sepsis. He was treated with appropriate fluid regiment. BCx collected and he was started on Rocephin and Azithromycin; Vanc was added. CT Ch/A/P with contrast showing moderate bilateral pleural effusions with dependent atelectasis, large GS in the GB fundus, diffuse atherosclerotic disease. 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 BCx (05/04) positive for MRSA Source could be PNA. Consider endocarditis, current PM, PM wires or old PM pocket. White count trended down and now normal BCx (05/05) positive for MRSA BCx (05/06) GPC BCx remain positive probably related to subtherapeutic Vanco level. Continue Vanco. Cardiology consulted with plan for JOSEPH later today Repeat BCx in 1-2 days. (2) Bacteremia: Code(s): R78.81 - Bacteremia Status: Acute Assessment and Plan: As above (3) Pneumonia: Code(s): J18.9 - Pneumonia, unspecified organism Status: Acute Assessment and Plan: As above. CXR repeated showing worsening diffuse lung disease R>L. Possibly PNA but consider edema given that he was on IVF. Start Lasix IV and follow. (4) NANI (acute kidney injury): Code(s): N17.9 - Acute kidney failure, unspecified Status: Acute Assessment and Plan: Baseline creatinine is normal at 0.8. Creatinine 1.3 on admission IV fluids given and Cr trended down to baseline. Off IVF now Continue to monitor. (5) Pacemaker: Code(s): Z95.0 - Presence of cardiac pacemaker Status: Acute Assessment and Plan: Patient was here in February for AMS and sepsis from chest wall cellulitis. He was bacteremic with MRSA. JOSEPH (02/25/24) showing evidence of infective vegetation associated with the pacemaker lead/leads in the right atrium but no clear-cut evidence of valvular involvement with the vegetation however the JOSEPH was not of ideal quality. Patient followed up with his physician at [facility]. The infected device was removed. He had a temporary pacemaker until cleared and then had a permanent pacemaker placed in the left upper chest. Plan as above. (6) Aortic valve disease: Code(s): I35.9 - Nonrheumatic aortic valve disorder, unspecified Status: Acute Assessment and Plan: Patient with aortic valve disease s/p AVR with aortic root replacement. JOSEPH planned. (7) Severe protein-calorie malnutrition: Code(s): E43 - Unspecified severe protein-calorie malnutrition Status: Acute Assessment and Plan: Patient with severe protein calorie malnutrition related to chronic loss of appetite, recent hospitalization, weight loss of 10% over the past 3 months and intake less than 75% of needs for greater than 1 month. He also has severe muscle wasting and severe fat loss. Continue supplements. Dietary consult. (8) Altered mental status: Code(s): R41.82 - Altered mental status, unspecified Status: Acute Assessment and Plan: Patient has underlying dementia and is on Aricept which was resumed. Patient had altered mental status most likely related to pneumonia and bacteremia. CT the brain showing no acute findings Mental status stable. Monitor Plan TCP - Not noted before. B12 level okay. Probably related to sepsis. No Heparin for now. Will hold Eliquis until this improves. Anti-plt Ab ordered. DVT prophylaxis - SCDs Code status - full code Disp - PT/OT Subjective Date/time seen: 05/08/24 13:57 Interval history: 83yo male with hx of infected PM, dementia and HTN here for altered mental status. Patient unhappy today and more confused. He denies CP or SOB. No n/v. Exam Narrative: AF 97.2 95/57 60 22 974%ra Gen - NARD lying flat in bed left side down Chest - left base inspiratory crackles o/w clear. nml RR CV - RRR S1/S2 Abd - Soft, NT/ND, Positive BS Ext - No pedal edema Psych - unhappy mood Skin - Warm and dry. Objective Data Vital Signs Vital Signs: Vital Signs - 24 hr 05/07/24 14:00 05/07/24 16:00 05/07/24 16:00 Temperature 98 F Pulse Rate 62 58 L Respiratory Rate 18 Blood Pressure 119/60 Pulse Oximetry 97 Oxygen Delivery Room Air Oxygen Flow Rate 05/07/24 16:00 05/07/24 18:00 05/07/24 18:59 Temperature 99.6 F Pulse Rate 60 60 62 Respiratory Rate 15 Blood Pressure 112/81 Pulse Oximetry 97 Oxygen Delivery Oxygen Flow Rate 05/07/24 20:00 05/07/24 20:00 05/08/24 06:00 Temperature 97.7 F 97.2 F L Pulse Rate 87 59 L Respiratory Rate 18 20 Blood Pressure 130/65 110/66 Pulse Oximetry 97 94 Oxygen Delivery Room Air Oxygen Flow Rate 05/08/24 09:04 05/08/24 11:06 05/08/24 13:40 Temperature Pulse Rate 60 60 Respiratory Rate 22 H Blood Pressure 95/57 L Pulse Oximetry 97 Oxygen Delivery Room Air Nasal Cannula Oxygen Flow Rate 3 Intake/Output Intake/Output: Intake & Output 05/05/24 05/06/24 05/07/24 05/08/24 23:59 23:59 23:59 23:59 Intake Total 3354.6 4078.5 2273.3 790 Output Total 750 900 850 Balance 2604.6 3178.5 1423.3 790 Meds/Results Medications: Active Medications Generic Name Dose Route Start Last Admin Trade Name Freq PRN Reason Stop Dose Admin Acetaminophen 650 mg 05/04/24 18:08 Acetaminophen 325 Mg Tablet PO Q4H PRN Mild Pain (1-3) or Fever Hydrocodone Bitart/Acetaminophen 1 tab 05/04/24 18:08 Hydrocodone/Acetaminophen (*Crx) 5-325 Mg Tablet PO Q4H PRN Pain Rated 4-6 Aspirin 81 mg 05/06/24 09:00 05/08/24 09:05 Aspirin 81 Mg Enteric Tablet PO 81 mg DAILY DARIUSZ Administration Atorvastatin Calcium 20 mg 05/06/24 09:00 05/08/24 09:05 Atorvastatin 20 Mg Tablet PO 20 mg DAILY DARIUSZ Administration Docusate Sodium 100 mg 05/05/24 17:00 05/08/24 09:05 Docusate Sodium 100 Mg Capsule PO 100 mg BID DARIUSZ Administration Donepezil HCl 5 mg 05/05/24 21:00 05/07/24 20:23 Donepezil Hcl 5 Mg Tablet PO 5 mg QHS DARIUSZ Administration Doxycycline Hyclate 100 mg 05/05/24 21:00 05/08/24 09:04 Doxycycline Hyclate 100 Mg Tablet PO 05/09/24 09:01 100 mg Q12HR DARIUSZ Administration Furosemide 20 mg 05/08/24 09:00 05/08/24 13:32 Furosemide Inj 40 Mg/4 Ml Vial IV PUSH Not Given BID DARIUSZ Vancomycin HCl 1,250 mg in 250 mls @ 166.667 mls/hr 05/06/24 21:00 05/08/24 10:36 Vancomycin 1,250 Mg/Ns 250 Ml IVPB 166 mls/hr Q12H DARIUSZ Administration Metoprolol Tartrate 25 mg 05/06/24 16:40 05/08/24 09:04 Metoprolol Tartrate 25 Mg Tablet PO 25 mg QAM DARIUSZ Administration Polyethylene Glycol 17 gm 05/06/24 09:00 05/08/24 09:05 Polyethylene Glycol 3350 17 Gm Powd.Pack PO 17 gm DAILY DARIUSZ Administration Quetiapine Fumarate 75 mg 05/07/24 21:39 05/07/24 22:50 Quetiapine Fumarate 25 Mg Tablet PO 75 mg HS PRN Administration Agitation Radiology Results: ITS Impressions Head CT 05/05/24 10:52 IMPRESSION: 1. No acute intracranial process. 2. Stable age-related changes including moderate diffuse volume loss and mild scattered white matter hypoattenuation consistent with chronic small vessel ischemic disease. Chest/Abdomen/Pelvis CT 05/06/24 16:14 IMPRESSION: Status post sternotomy 3.6 cm posterior aortic arch aneurysm; no thoracic aortic dissection Moderate bilateral pleural effusions, compressive atelectasis of both lower lobes and mild dependent atelectasis of the lingula and middle lobe Interval mild prominence of the right paratracheal and aortopulmonary window nodes since 02/20/2024, likely reactive Cholelithiasis Bladder wall thickening; this may be due to prostatomegaly, cystitis is not excluded Severe diverticulosis of the left colon; no evidence of diverticulitis Chest X-Ray 05/08/24 06:18 IMPRESSION: 1. Worsened diffuse lung disease, right worse than left, consistent with pulmonary edema versus pneumonia. 2. Small pleural effusions. 3. Cardiomegaly. Labs Labs: Laboratory Results - last 24 hr 05/08/24 05/08/24 08:08 08:09 WBC 6.0 RBC 3.12 L Hgb 8.8 L Hct 27.7 L MCV 88.8 MCH 28.2 MCHC 31.8 L RDW 15.9 H Plt Count 65 L MPV 11.9 H Immature Gran % (Auto) 0.5 Neut % (Auto) 69.7 Lymph % (Auto) 14.9 L [place] % (Auto) 12.9 H Eos % (Auto) 1.7 Baso % (Auto) 0.3 Lymph # (Auto) 0.89 L [place] # (Auto) 0.8 H Eos # (Auto) 0.1 Baso # (Auto) 0.0 Abs Immat Gran (auto) 0.03 Absolute Neuts (auto) 4.2 Absolute Nucleated RBC 0.000 Nucleated RBC % 0.0 % Immature Plt Fraction 6.8 Sodium 141 Potassium 3.5 Chloride 115 H Carbon Dioxide 24 Anion Gap 2 L BUN 23 H Creatinine 0.90 Estim Creat Clear Calc 52 Estimated GFR > 60 Glucose 89 Calcium 8.3 L Vancomycin Trough 18.5
--- NOTE | 2024-05-08 14:39 | WPDHPUPDATE1 ---
History and Physical Update Update Date/Time: 05/08/24 12:59 History and Physical has been reviewed, including an updated exam of the patient. There are NO changes in the patient's condition. Risks, benefits, and alternatives have been discussed and questions answered. Patient agrees to proceed with procedure.
[2024-05-08] MEDS: FUROSEMIDE INJ 40 MG/4 ML VIAL 20 MG IV PUSH (16:49)
[2024-05-08] MEDS: QUEtiapine FUMARATE 25 MG TABLET 75 MG PO (21:13)
[2024-05-08] MEDS: APIXABAN 5 MG TABLET PO (21:13)
[2024-05-08] MEDS: DONEPEZIL HCL 5 MG TABLET PO (21:13)
[2024-05-08] MEDS: NIACIN SA 500 MG TABLET PO (21:13)
[2024-05-09 06:37] VITALS: BP 159/70; PULSE 71; RESP 16; TEMP 37.2; O2SAT 99
[2024-05-09 06:44] LABS: Hematocrit 33.9 % (42.0-52.0); Hemoglobin 10.2 g/dL (14.0-18.0); Immature Platelet Fraction Pct 7.3 % (0.9-11.2); Mean Corpuscular HGB Conc 30.1 g/dl (32-36); Mean Corpuscular Volume 93.1 fl (80-100); Mean Platelet Volume 11.7 fl (7.4-10.4); Platelet Count Result 84 k/mm3 (150-375); Red Blood Count 3.64 M/mm3 (4.6-6.20); Red Cell Distribution Width 15.9 % (11.5-14.5)
[2024-05-09 06:56] LABS: Anion Gap 6 mmol/L (4-12); Blood Urea Nitrogen 25 mg/dL (9-20); Calcium 8.6 mg/dL (8.4-10.2); Carbon Dioxide 23 mmol/L (22-30); Chloride 112 mmol/L (98-107); Estimated CRCL calculation 40 ml/min; Estimated Glomerular Filt Rate 58; Glucose 105 mg/dL (65-110); Potassium 3.4 mmol/L (3.4-5.0); Sodium 141 mmol/L (137-145)
[2024-05-09] MEDS: DOXYCYCLINE HYCLATE 100 MG TABLET PO (09:03)
[2024-05-09] MEDS: DOCUSATE SODIUM 100 MG CAPSULE PO ×2 (09:03→17:36)
[2024-05-09] MEDS: ASPIRIN 81 MG ENTERIC TABLET PO (09:03)
[2024-05-09] MEDS: METOPROLOL TARTRATE 25 MG TABLET PO (09:03)
[2024-05-09] MEDS: APIXABAN 5 MG TABLET PO ×2 (09:03→19:48)
[2024-05-09] MEDS: polyethylene glycoL 3350 17 GM POWD.PACK PO (09:03)
[2024-05-09] MEDS: ATORVASTATIN 20 MG TABLET PO (09:03)
--- NOTE | 2024-05-09 11:01 | PC.NURSE ---
OT at bedside seeing patient.
[2024-05-09 14:00] VITALS: BP 100/54; PULSE 89; RESP 18; TEMP 36.1; O2SAT 98
--- NOTE | 2024-05-09 17:47 | PM.IMPN ---
Progress Note: A&P Assessment and Plan (1) Sepsis: Qualifiers: Sepsis acute organ dysfunction status: without acute organ dysfunction Sepsis type: sepsis due to unspecified organism Qualified Code(s): A41.9 - Sepsis, unspecified organism Code(s): A41.9 - Sepsis, unspecified organism Status: Acute Assessment and Plan: Patient was here in February for AMS and sepsis from chest wall cellulitis. He was bacteremic with MRSA. JOSEPH (02/25/24) showing PM wires were infected. He ultimately was hospitalized at [facility] then at a rehab facility. He was home for about 1-2 days before developing worsening confusion that prompted him to present to the ED here. CXR showing airspace opacities in the lower lung zones c/w with atelectasis vs PNA. He was febrile. Lactic acid was 3.7. WBC 16. He was tachypneic. BP was soft. All c/w sepsis. He was treated with appropriate fluid regiment. BCx collected and he was started on Rocephin and Azithromycin; Vanc was added. CT Ch/A/P with contrast showing moderate bilateral pleural effusions with dependent atelectasis, large GS in the GB fundus, diffuse atherosclerotic disease. 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 JOSEPH 05/08 showing no evidence of vegetations on the valves of PM wires. BCx (05/04) positive for MRSA BCx (05/05) positive for MRSA BCx (05/06) positive for MRSA Source felt to be PNA. Could be PM site but no edema/fat stranding noted at old PM site or current PM site. White count trended down and now normal BCx remain positive probably related to subtherapeutic Vanco level. Vanco level therapeutic 05/08 Continue Vanco. Repeat BCx today. PICC line once we have negative BCx. If persistent +BCx despite therapeutic vanco level, then transfer for ID consult (2) Bacteremia: Code(s): R78.81 - Bacteremia Status: Acute Assessment and Plan: As above (3) Pneumonia: Code(s): J18.9 - Pneumonia, unspecified organism Status: Acute Assessment and Plan: As above. CXR repeated showing worsening diffuse lung disease R>L. Possibly PNA but consider edema given that he was on IVF. Given IV Lasix IV. Clinically appears improved. Remains on room air. Follow. Continue IV Vanco. Stop Lasix. (4) NANI (acute kidney injury): Code(s): N17.9 - Acute kidney failure, unspecified Status: Acute Assessment and Plan: Baseline creatinine is normal at 0.8. Creatinine 1.3 on admission IV fluids given and Cr trended down to baseline. IV fluids stopped Cr up today related to lasix. Continue to monitor. (5) Pacemaker: Code(s): Z95.0 - Presence of cardiac pacemaker Status: Acute Assessment and Plan: Patient was here in February for AMS and sepsis from chest wall cellulitis. He was bacteremic with MRSA. JOSEPH (02/25/24) showing evidence of infective vegetation associated with the pacemaker lead/leads in the right atrium but no clear-cut evidence of valvular involvement with the vegetation however the JOSEPH was not of ideal quality. Patient followed up with his physician at [facility]. The infected device was removed. He had a temporary pacemaker until cleared and then had a permanent pacemaker placed in the left upper chest. JOSEPH showing no evidence of recurrent infected PM Plan as above. (6) Aortic valve disease: Code(s): I35.9 - Nonrheumatic aortic valve disorder, unspecified Status: Acute Assessment and Plan: Patient with aortic valve disease s/p AVR with aortic root replacement. No evidence of endocarditis. (7) Severe protein-calorie malnutrition: Code(s): E43 - Unspecified severe protein-calorie malnutrition Status: Acute Assessment and Plan: Patient with severe protein calorie malnutrition related to chronic loss of appetite, recent hospitalization, weight loss of 10% over the past 3 months and intake less than 75% of needs for greater than 1 month. He also has severe muscle wasting and severe fat loss. Continue supplements. Dietary consult. (8) Altered mental status: Code(s): R41.82 - Altered mental status, unspecified Status: Acute Assessment and Plan: Patient has underlying dementia and is on Aricept which was resumed. Patient had altered mental status most likely related to pneumonia and bacteremia. CT the brain showing no acute findings Mental status stable. Monitor Plan TCP - Not noted before. B12 level okay. Probably related to sepsis. No Heparin for now. Will hold Eliquis until this improves. Anti-plt Ab ordered. Plt count better today. DVT prophylaxis - SCDs Code status - full code Disp - PT/OT Subjective Date/time seen: 05/09/24 17:47 Interval history: 83yo male with hx of infected PM, dementia and HTN here for altered mental status. Patient alert but confused so hx unreliable. No family in the room Review of Systems Review of Systems: ROS unobtainable: Yes unobtainable due to mental status Exam Narrative: AF 96.9 100/54 89 18 98%ra Gen - NARD lying flat in bed Chest - mild inspiratory crackles in the flanks o/w clear. nml RR CV - RRR S1/S2 Abd - Soft, NT/ND, Positive BS Ext - No pedal edema Psych - unhappy mood Skin - Warm and dry. Objective Data Vital Signs Vital Signs: Vital Signs - 24 hr 05/08/24 20:00 05/08/24 21:01 05/09/24 06:37 Temperature 98.0 F 98.9 F Pulse Rate 92 71 Respiratory Rate 22 H 16 Blood Pressure 136/99 H 159/70 H Pulse Oximetry 90 99 Oxygen Delivery Room Air 05/09/24 08:00 05/09/24 14:00 Temperature 96.9 F L Pulse Rate 89 Respiratory Rate 18 Blood Pressure 100/54 L Pulse Oximetry 98 Oxygen Delivery Room Air Intake/Output Intake/Output: Intake & Output 05/06/24 05/07/24 05/08/24 05/09/24 23:59 23:59 23:59 23:59 Intake Total 4078.5 2273.3 1530 1388 Output Total 900 850 Balance 3178.5 1423.3 1530 1388 Meds/Results Medications: Active Medications Generic Name Dose Route Start Last Admin Trade Name Freq PRN Reason Stop Dose Admin Acetaminophen 500 mg 05/08/24 14:23 Acetaminophen 500 Mg Tablet PO Q6H PRN pain Hydrocodone Bitart/Acetaminophen 1 tab 05/04/24 18:08 Hydrocodone/Acetaminophen (*Crx) 5-325 Mg Tablet PO Q4H PRN Pain Rated 4-6 Apixaban 5 mg 05/08/24 21:00 05/09/24 09:03 Apixaban 5 Mg Tablet PO 5 mg Q12HR DARIUSZ Administration Aspirin 81 mg 05/06/24 09:00 05/09/24 09:03 Aspirin 81 Mg Enteric Tablet PO 81 mg DAILY DARIUSZ Administration Atorvastatin Calcium 20 mg 05/06/24 09:00 05/09/24 09:03 Atorvastatin 20 Mg Tablet PO 20 mg DAILY DARIUSZ Administration Docusate Sodium 100 mg 05/05/24 17:00 05/09/24 17:36 Docusate Sodium 100 Mg Capsule PO 100 mg BID DARIUSZ Administration Donepezil HCl 5 mg 05/05/24 21:00 05/08/24 21:13 Donepezil Hcl 5 Mg Tablet PO 5 mg QHS DARIUSZ Administration Vancomycin HCl 1,250 mg in 250 mls @ 166.667 mls/hr 05/09/24 21:00 Vancomycin 1,250 Mg/Ns 250 Ml IVPB Q24H DARIUSZ Metoprolol Tartrate 25 mg 05/06/24 16:40 05/09/24 09:03 Metoprolol Tartrate 25 Mg Tablet PO 25 mg QAM DARIUSZ Administration Niacin 500 mg 05/08/24 21:00 05/08/24 21:13 Niacin Sa 500 Mg Tablet PO 500 mg HS DARIUSZ Administration Polyethylene Glycol 17 gm 05/06/24 09:00 05/09/24 09:03 Polyethylene Glycol 3350 17 Gm Powd.Pack PO 17 gm DAILY DARIUSZ Administration Quetiapine Fumarate 75 mg 05/07/24 21:39 05/08/24 21:13 Quetiapine Fumarate 25 Mg Tablet PO 75 mg HS PRN Administration Agitation Radiology Results: ITS Impressions Head CT 05/05/24 10:52 IMPRESSION: 1. No acute intracranial process. 2. Stable age-related changes including moderate diffuse volume loss and mild scattered white matter hypoattenuation consistent with chronic small vessel ischemic disease. Chest/Abdomen/Pelvis CT 05/06/24 16:14 IMPRESSION: Status post sternotomy 3.6 cm posterior aortic arch aneurysm; no thoracic aortic dissection Moderate bilateral pleural effusions, compressive atelectasis of both lower lobes and mild dependent atelectasis of the lingula and middle lobe Interval mild prominence of the right paratracheal and aortopulmonary window nodes since 02/20/2024, likely reactive Cholelithiasis Bladder wall thickening; this may be due to prostatomegaly, cystitis is not excluded Severe diverticulosis of the left colon; no evidence of diverticulitis Chest X-Ray 05/08/24 06:18 IMPRESSION: 1. Worsened diffuse lung disease, right worse than left, consistent with pulmonary edema versus pneumonia. 2. Small pleural effusions. 3. Cardiomegaly. Labs Labs: Laboratory Results - last 24 hr 05/09/24 05/09/24 06:19 07:53 WBC 8.0 RBC 3.64 L Hgb 10.2 L Hct 33.9 L MCV 93.1 MCH 28.0 MCHC 30.1 L RDW 15.9 H Plt Count 84 L MPV 11.7 H % Immature Plt Fraction 7.3 Sodium 141 Potassium 3.4 Chloride 112 H Carbon Dioxide 23 Anion Gap 6 BUN 25 H Creatinine 1.20 Estim Creat Clear Calc 40 Estimated GFR 58 L Glucose 105 Calcium 8.6 Vancomycin Trough 26.0 H
[2024-05-09] MEDS: QUEtiapine FUMARATE 25 MG TABLET 75 MG PO (19:47)
[2024-05-09] MEDS: DONEPEZIL HCL 5 MG TABLET PO (19:48)
[2024-05-09] MEDS: NIACIN SA 500 MG TABLET PO (19:48)
[2024-05-09 21:18] VITALS: BP 116/77; PULSE 91; RESP 18; TEMP 36.3; O2SAT 92
--- NOTE | 2024-05-09 22:45 | PC.NURSE ---
Pt. restless in bed. Reviewed chart and noted no documentation of any output/voiding today since 0500. Bladder scan done showing 1007 ml urine in bladder. I called and spoke with Dr. Uriarte who stated that we can place a anthony for retention. Anthony placed without difficulity.
[2024-05-10 06:00] VITALS: BP 111/61; PULSE 67; RESP 14; TEMP 36.6; O2SAT 94
[2024-05-10 07:03] LABS: Hematocrit 29.3 % (42.0-52.0); Hemoglobin 9.3 g/dL (14.0-18.0); Immature Platelet Fraction Pct 4.6 % (0.9-11.2); Mean Corpuscular HGB Conc 31.7 g/dl (32-36); Mean Corpuscular Hemoglobin 28.1 pg (26-34); Mean Corpuscular Volume 88.5 fl (80-100); Mean Platelet Volume 11.1 fl (7.4-10.4); Platelet Count Result 124 k/mm3 (150-375); Red Blood Count 3.31 M/mm3 (4.6-6.20); White Blood Count 6.6 K/mm3 (4.5-10.0)
[2024-05-10 07:22] LABS: Anion Gap 1 mmol/L (4-12); Blood Urea Nitrogen 28 mg/dL (9-20); CRP 6.3 mg/dL (<1.0); Calcium 8.9 mg/dL (8.4-10.2); Carbon Dioxide 26 mmol/L (22-30); Chloride 116 mmol/L (98-107); Estimated CRCL calculation 40 ml/min; Estimated Glomerular Filt Rate 58; Glucose 105 mg/dL (65-110); Potassium 3.2 mmol/L (3.4-5.0); Sodium 143 mmol/L (137-145)
[2024-05-10] MEDS: ASPIRIN 81 MG ENTERIC TABLET PO (08:59)
[2024-05-10] MEDS: APIXABAN 5 MG TABLET PO ×2 (08:59→20:36)
[2024-05-10] MEDS: METOPROLOL TARTRATE 25 MG TABLET PO (08:59)
[2024-05-10] MEDS: ATORVASTATIN 20 MG TABLET PO (08:59)
[2024-05-10] MEDS: polyethylene glycoL 3350 17 GM POWD.PACK PO (08:59)
[2024-05-10] MEDS: DOCUSATE SODIUM 100 MG CAPSULE PO ×2 (08:59→16:14)
[2024-05-10] MEDS: MUPIROCIN 2% OINT 22 GM TUBE 1 APPLIC EACH NARE ×2 (09:38→20:37)
[2024-05-10 10:48] LABS: Heparin Induced Platelet Antib Weak Positive (Negative)
[2024-05-10 14:00] VITALS: BP 121/64; PULSE 60; RESP 20; TEMP 36.3; O2SAT 99
--- NOTE | 2024-05-10 15:08 | P.PNIM_ITS ---
Progress Note: A&P Assessment and Plan (1) Sepsis: Qualifiers: Sepsis acute organ dysfunction status: without acute organ dysfunction Sepsis type: sepsis due to unspecified organism Qualified Code(s): A41.9 - S epsis, unspecified organism Code(s): A41.9 - Sepsis, unspecified organism Status: Acute Assessment and Plan: Patient was here in February for AMS and sepsis from chest wall cellulitis. He was bacteremic with MRSA. JOSEPH (02/25/24) showing PM wires were infected. He ultimately was hospitalized at [place] then at a rehab facility. He was home for about 1-2 days before developing worsening confusion that prompted him to present to the ED here. CXR showing airspace opacities in the lower lung zones c/w with atelectasis vs PNA. He was febrile. Lactic acid was 3.7. WBC 16. He was tachypneic. BP was soft. All c/w sepsis. He was treated with appropriate fluid regiment. BCx collected and he was started on Rocephin and Azithromycin; Vanc was added. CT Ch/A/P with contrast showing moderate bilateral pleural effusions with dependent atelectasis, large GS in the GB fundus, diffuse atherosclerotic disease. 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 JOSEPH 05/08 showing no evidence of vegetations on the valves of PM wires. BCx (05/04) positive for MRSA BCx (05/05) positive for MRSA BCx (05/06) positive for MRSA Source felt to be PNA. Could be PM site but no edema/fat stranding noted at old PM site or current PM site. White count trended down and now normal BCx remain positive probably related to subtherapeutic Vanco level. Vanco level therapeutic 05/08 Continue Vanco. Repeat BCx today. PICC line once we have negative BCx. If persistent +BCx despite therapeutic vanco level, then transfer for ID consult 05/10/2024 Will continue with vancomycin and wait for culture resuts (2) Bacteremia: Code(s): R78.81 - Bacteremia Status: Acute Assessment and Plan: As above (3) Pneumonia: Code(s): J18.9 - Pneumonia, unspecified organism Status: Acute Assessment and Plan: As above. CXR repeated showing worsening diffuse lung disease R>L. Possibly PNA but consider edema given that he was on IVF. Given IV Lasix IV. Clinically appears improved. Remains on room air. Follow. Continue IV Vanco. 05/10/2024 Continue iv antibiotics Repeat xray in few days (4) NANI (acute kidney injury): Code(s): N17.9 - Acute kidney failure, unspecified Status: Acute Assessment and Plan: Baseline creatinine is normal at 0.8. Creatinine 1.3 on admission IV fluids given and Cr trended down to baseline. IV fluids stopped Cr up today related to lasix. Continue to monitor. 05/10/2024 Stable, monitor creatinine (5) Pacemaker: Code(s): Z95.0 - Presence of cardiac pacemaker Status: Acute Assessment and Plan: Patient was here in February for AMS and sepsis from chest wall cellulitis. He was bacteremic with MRSA. JOSEPH (02/25/24) showing evidence of infective vegetation associated with the pacemaker lead/leads in the right atrium but no clear-cut evidence of valvular involvement with the vegetation however the JOSEPH was not of ideal quality. Patient followed up with his physician at [facility]. The infected device was removed. He had a temporary pacemaker until cleared and then had a permanent pacemaker placed in the left upper chest. JOSEPH showing no evidence of recurrent infected PM Plan as above. (6) Aortic valve disease: Code(s): I35.9 - Nonrheumatic aortic valve disorder, unspecified Status: Acute Assessment and Plan: Patient with aortic valve disease s/p AVR with aortic root replacement. No evidence of endocarditis. (7) Severe protein-calorie malnutrition: Code(s): E43 - Unspecified severe protein-calorie malnutrition Status: Acute Assessment and Plan: Patient with severe protein calorie malnutrition related to chronic loss of appetite, recent hospitalization, weight loss of 10% over the past 3 months and intake less than 75% of needs for greater than 1 month. He also has severe muscle wasting and severe fat loss. Continue supplements. Dietary consult. (8) Altered mental status: Code(s): R41.82 - Altered mental status, unspecified Status: Acute Assessment and Plan: Patient has underlying dementia and is on Aricept which was resumed. Patient had altered mental status most likely related to pneumonia and bacteremia. CT the brain showing no acute findings Mental status stable. Monitor Plan TCP - Not noted before. B12 level okay. Probably related to sepsis. No Heparin for now. Will hold Eliquis until this improves. Anti-plt Ab ordered. Plt count better today. DVT prophylaxis - SCDs Code status - full code Disp - PT/OT Subjective Date/time seen: 05/10/24 15:08 Interval history: 05/10/2024 Patient was seen during the morning rounds today, 83yo male with hx of infected PM, dementia and HTN here for altered mental status. Patient alert but confused so hx unreliable. No family in the room. Appears in no distress. Review of Systems Review of Systems: ROS unobtainable: Yes unobtainable due to mental status Exam Narrative: Vital signs stable Gen - NARD lying flat in bed Chest - Air entry is better. CV - RRR S1/S2 Abd - Soft, NT/ND, Positive BS Ext - No pedal edema Psych - mood ok Skin - Warm and dry. Objective Data Vital Signs Vital Signs: Vital Signs - 24 hr 05/09/24 20:00 05/09/24 21:18 05/10/24 06:00 Temperature 36.3 C L 36.6 C Pulse Rate 91 67 Respiratory Rate 18 14 Blood Pressure 116/77 111/61 Pulse Oximetry 92 94 Oxygen Delivery Room Air 05/10/24 08:00 Temperature Pulse Rate Respiratory Rate Blood Pressure Pulse Oximetry Oxygen Delivery Room Air Intake/Output Intake/Output: Intake & Output 05/07/24 05/08/24 05/09/24 05/10/24 23:59 23:59 23:59 23:59 Intake Total 2273.3 1530 1388 1130 Output Total 850 1400 Balance 1423.3 1530 1388 -270 Meds/Results Medications: Active Medications Generic Name Dose Route Start Last Admin Trade Name Freq PRN Reason Stop Dose Admin Acetaminophen 500 mg 05/08/24 14:23 Acetaminophen 500 Mg Tablet PO Q6H PRN pain Hydrocodone Bitart/Acetaminophen 1 tab 05/04/24 18:08 Hydrocodone/Acetaminophen (*Crx) 5-325 Mg Tablet PO Q4H PRN Pain Rated 4-6 Apixaban 5 mg 05/08/24 21:00 05/10/24 08:59 Apixaban 5 Mg Tablet PO 5 mg Q12HR DARIUSZ Administration Aspirin 81 mg 05/06/24 09:00 05/10/24 08:59 Aspirin 81 Mg Enteric Tablet PO 81 mg DAILY DARIUSZ Administration Atorvastatin Calcium 20 mg 05/06/24 09:00 05/10/24 08:59 Atorvastatin 20 Mg Tablet PO 20 mg DAILY DARIUSZ Administration Docusate Sodium 100 mg 05/05/24 17:00 05/10/24 08:59 Docusate Sodium 100 Mg Capsule PO 100 mg BID DARIUSZ Administration Donepezil HCl 5 mg 05/05/24 21:00 05/09/24 19:48 Donepezil Hcl 5 Mg Tablet PO 5 mg QHS DARIUSZ Administration Vancomycin HCl 1,250 mg in 250 mls @ 166.667 mls/hr 05/09/24 21:00 05/09/24 21:00 Vancomycin 1,250 Mg/Ns 250 Ml IVPB Not Given Q24H DARIUSZ Metoprolol Tartrate 25 mg 05/06/24 16:40 05/10/24 08:59 Metoprolol Tartrate 25 Mg Tablet PO 25 mg QAM DARIUSZ Administration Mupirocin 1 applic 05/10/24 09:00 05/10/24 09:38 Mupirocin 2% Oint 22 Gm Tube EACH NARE 1 applic Q12HR DARIUSZ Administration Niacin 500 mg 05/08/24 21:00 05/09/24 19:48 Niacin Sa 500 Mg Tablet PO 500 mg HS DARIUSZ Administration Polyethylene Glycol 17 gm 05/06/24 09:00 05/10/24 08:59 Polyethylene Glycol 3350 17 Gm Powd.Pack PO 17 gm DAILY DARIUSZ Administration Quetiapine Fumarate 75 mg 05/07/24 21:39 05/09/24 19:47 Quetiapine Fumarate 25 Mg Tablet PO 75 mg HS PRN Administration Agitation Radiology Results: ITS Impressions Head CT 05/05/24 10:52 IMPRESSION: 1. No acute intracranial process. 2. Stable age-related changes including moderate diffuse volume loss and mild scattered white matter hypoattenuation consistent with chronic small vessel ischemic disease. Chest/Abdomen/Pelvis CT 05/06/24 16:14 IMPRESSION: Status post sternotomy 3.6 cm posterior aortic arch aneurysm; no thoracic aortic dissection Moderate bilateral pleural effusions, compressive atelectasis of both lower lobes and mild dependent atelectasis of the lingula and middle lobe Interval mild prominence of the right paratracheal and aortopulmonary window nodes since 02/20/2024, likely reactive Cholelithiasis Bladder wall thickening; this may be due to prostatomegaly, cystitis is not excluded Severe diverticulosis of the left colon; no evidence of diverticulitis Chest X-Ray 05/08/24 06:18 IMPRESSION: 1. Worsened diffuse lung disease, right worse than left, consistent with pulmonary edema versus pneumonia. 2. Small pleural effusions. 3. Cardiomegaly. Labs Labs: Laboratory Results - last 24 hr 05/08/24 05/10/24 08:09 06:48 WBC 6.6 RBC 3.31 L Hgb 9.3 L Hct 29.3 L MCV 88.5 MCH 28.1 MCHC 31.7 L RDW 16.0 H Plt Count 124 L MPV 11.1 H % Immature Plt Fraction 4.6 Sodium 143 Potassium 3.2 L Chloride 116 H Carbon Dioxide 26 Anion Gap 1 L BUN 28 H Creatinine 1.20 Estim Creat Clear Calc 40 Estimated GFR 58 L Glucose 105 Calcium 8.9 C-Reactive Protein 6.3 H Heparin-induced Plt Ab Weak positive A* Hep-Induced Plt Ab Cmmt 0.336
[2024-05-10] MEDS: POTASSIUM CHLORIDE INJ 40 MEQ in SODIUM CHLORIDE 0.9% IV 500 ML 130 MEQ IVPB (15:22)
[2024-05-10] MEDS: NIACIN SA 500 MG TABLET PO (20:36)
[2024-05-10] MEDS: DONEPEZIL HCL 5 MG TABLET PO (20:36)
[2024-05-10] MEDS: VANCOMYCIN 1,250 MG/NS 250 ML 1,250 MG/250 ML BAG 166.67 MG IVPB (20:39)
[2024-05-10] MEDS: QUEtiapine FUMARATE 25 MG TABLET 75 MG PO (20:39)
[2024-05-10 21:07] VITALS: BP 111/62; PULSE 60; RESP 20; TEMP 37.1; O2SAT 95
[2024-05-11 05:47] VITALS: BP 122/64; PULSE 59; RESP 18; TEMP 37.2; O2SAT 97
[2024-05-11 07:56] LABS: Alanine Aminotransferase 20 U/L (6-50); Albumin Level 2.3 g/dL (3.5-5.1); Alkaline Phosphatase 56 U/L (38-126); Anion Gap -2 mmol/L (4-12); Aspartate Amino Transferase 35 U/L (17-59); Bilirubin,Total 0.5 mg/dL (0.2-1.3); Blood Urea Nitrogen 22 mg/dL (9-20); Calcium 8.6 mg/dL (8.4-10.2); Carbon Dioxide 29 mmol/L (22-30); Chloride 114 mmol/L (98-107); Estimated CRCL calculation 43 ml/min; Estimated Glomerular Filt Rate > 60; Glucose 94 mg/dL (65-110); Potassium 3.9 mmol/L (3.4-5.0); Sodium 141 mmol/L (137-145)
[2024-05-11 09:09] VITALS: PULSE 62
[2024-05-11] MEDS: METOPROLOL TARTRATE 25 MG TABLET PO (09:09)
[2024-05-11] MEDS: polyethylene glycoL 3350 17 GM POWD.PACK PO (09:10)
[2024-05-11] MEDS: DOCUSATE SODIUM 100 MG CAPSULE PO ×2 (09:10→17:06)
[2024-05-11] MEDS: ATORVASTATIN 20 MG TABLET PO (09:10)
[2024-05-11] MEDS: APIXABAN 5 MG TABLET PO ×2 (09:10→20:34)
[2024-05-11] MEDS: MUPIROCIN 2% OINT 22 GM TUBE 1 APPLIC EACH NARE ×2 (09:10→20:34)
[2024-05-11] MEDS: ASPIRIN 81 MG ENTERIC TABLET PO (09:10)
--- NOTE | 2024-05-11 10:38 | PCNFU ---
Nutrition Follow-Up Complete: Severe protein calorie malnutrition related to chronic loss of appetite, recent hospitalization as evidenced by weight loss 10%/3 months; intakes <75% needs >1 month; severe muscle wasting and severe fat loss Goal:Adequate PO intakes at least 75% meals and supplements Pt progressing towards goal. Continue with same goal. Pt current nutrition is Heart healthy, Ensure Enlive TID. Nutrition recommendation: continue with current plan of care Last recorded weight is 69.9 kg. Bowel Motility: +BM 05/09 Labs Reviewed: alb:2.3, BUN:22 Meds Noted: niacin Skin: WNL Additional Notes: Pt continues on a heart healthy diet, intake 50-75% at this time. Ensure Enlive TID in place. Wt up 4kg since admission which is a positive trend. Agree with orders, Encourage PO intake. Monitoring intakes, weights, labs, supplement tolerance, plan of care Follow up in 7 days
--- NOTE | 2024-05-11 11:25 | P.PNIM_ITS ---
Progress Note: A&P Assessment and Plan (1) Sepsis: Qualifiers: Sepsis acute organ dysfunction status: without acute organ dysfunction Sepsis type: sepsis due to unspecified organism Qualified Code(s): A41.9 - S epsis, unspecified organism Code(s): A41.9 - Sepsis, unspecified organism Status: Acute Assessment and Plan: Patient was here in February for AMS and sepsis from chest wall cellulitis. He was bacteremic with MRSA. JOSEPH (02/25/24) showing PM wires were infected. He ultimately was hospitalized at [place] then at a rehab facility. He was home for about 1-2 days before developing worsening confusion that prompted him to present to the ED here. CXR showing airspace opacities in the lower lung zones c/w with atelectasis vs PNA. He was febrile. Lactic acid was 3.7. WBC 16. He was tachypneic. BP was soft. All c/w sepsis. He was treated with appropriate fluid regiment. BCx collected and he was started on Rocephin and Azithromycin; Vanc was added. CT Ch/A/P with contrast showing moderate bilateral pleural effusions with dependent atelectasis, large GS in the GB fundus, diffuse atherosclerotic disease. 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 JOSEPH 05/08 showing no evidence of vegetations on the valves of PM wires. BCx (05/04) positive for MRSA BCx (05/05) positive for MRSA BCx (05/06) positive for MRSA Source felt to be PNA. Could be PM site but no edema/fat stranding noted at old PM site or current PM site. White count trended down and now normal BCx remain positive probably related to subtherapeutic Vanco level. Vanco level therapeutic 05/08 Continue Vanco. Repeat BCx today. PICC line once we have negative BCx. If persistent +BCx despite therapeutic vanco level, then transfer for ID consult 05/11/2024 Patient is clinically improving. Will continue with vancomycin and wait for culture results (2) Bacteremia: Code(s): R78.81 - Bacteremia Status: Acute Assessment and Plan: As above (3) Pneumonia: Code(s): J18.9 - Pneumonia, unspecified organism Status: Acute Assessment and Plan: As above. CXR repeated showing worsening diffuse lung disease R>L. Possibly PNA but consider edema given that he was on IVF. Given IV Lasix IV. Clinically appears improved. Remains on room air. Follow. Continue IV Vanco. 05/11/2024 Continue iv antibiotics Repeat xray in am. Clinically improving. (4) NANI (acute kidney injury): Code(s): N17.9 - Acute kidney failure, unspecified Status: Acute Assessment and Plan: Baseline creatinine is normal at 0.8. Creatinine 1.3 on admission IV fluids given and Cr trended down to baseline. IV fluids stopped Cr up today related to lasix. Continue to monitor. 05/11/2024 Stable, monitor creatinine (5) Pacemaker: Code(s): Z95.0 - Presence of cardiac pacemaker Status: Acute Assessment and Plan: Patient was here in February for AMS and sepsis from chest wall cellulitis. He was bacteremic with MRSA. JOSEPH (02/25/24) showing evidence of infective vegetation associated with the pacemaker lead/leads in the right atrium but no clear-cut evidence of valvular involvement with the vegetation however the JOSEPH was not of ideal quality. Patient followed up with his physician at [facility]. The infected device was removed. He had a temporary pacemaker until cleared and then had a permanent pacemaker placed in the left upper chest. JOSEPH showing no evidence of recurrent infected PM Plan as above. (6) Aortic valve disease: Code(s): I35.9 - Nonrheumatic aortic valve disorder, unspecified Status: Acute Assessment and Plan: Patient with aortic valve disease s/p AVR with aortic root replacement. No evidence of endocarditis. (7) Severe protein-calorie malnutrition: Code(s): E43 - Unspecified severe protein-calorie malnutrition Status: Acute Assessment and Plan: Patient with severe protein calorie malnutrition related to chronic loss of appetite, recent hospitalization, weight loss of 10% over the past 3 months and intake less than 75% of needs for greater than 1 month. He also has severe muscle wasting and severe fat loss. Continue supplements. Dietary consult. (8) Altered mental status: Code(s): R41.82 - Altered mental status, unspecified Status: Acute Assessment and Plan: Patient has underlying dementia and is on Aricept which was resumed. Patient had altered mental status most likely related to pneumonia and bacteremia. CT the brain showing no acute findings Mental status stable. Monitor Plan TCP - Not noted before. B12 level okay. Probably related to sepsis. No Heparin for now. Will hold Eliquis until this improves. Anti-plt Ab ordered. Plt count better today. DVT prophylaxis - SCDs Code status - full code Disp - PT/OT Subjective Date/time seen: 05/11/24 11:25 Interval history: 05/11/2024 Patient was seen during the morning rounds today, 83yo male with hx of infected PM, dementia and HTN here for altered mental status. No new overnight complaints. Patient alert but confused so hx unreliable. No family in the room. Appears in no distress. Review of Systems Review of Systems: ROS unobtainable: Yes unobtainable due to mental status Exam Narrative: Vital signs stable Gen - NARD lying flat in bed Chest - Air entry is better. CV - RRR S1/S2 Abd - Soft, NT/ND, Positive BS Ext - No pedal edema Psych - mood ok Skin - Warm and dry. Objective Data Vital Signs Vital Signs: Vital Signs - 24 hr 05/10/24 14:00 05/10/24 21:07 05/11/24 05:47 Temperature 36.3 C L 37.1 C 37.2 C Pulse Rate 60 60 59 L Respiratory Rate 20 20 18 Blood Pressure 121/64 111/62 122/64 Pulse Oximetry 99 95 97 05/11/24 09:09 Temperature Pulse Rate 62 Respiratory Rate Blood Pressure Pulse Oximetry Intake/Output Intake/Output: Intake & Output 05/08/24 05/09/24 05/10/24 05/11/24 23:59 23:59 23:59 23:59 Intake Total 1530 1388 1990 450 Output Total 1800 450 Balance 1530 1388 190 0 Meds/Results Medications: Active Medications Generic Name Dose Route Start Last Admin Trade Name Freq PRN Reason Stop Dose Admin Acetaminophen 500 mg 05/08/24 14:23 Acetaminophen 500 Mg Tablet PO Q6H PRN pain Hydrocodone Bitart/Acetaminophen 1 tab 05/04/24 18:08 Hydrocodone/Acetaminophen (*Crx) 5-325 Mg Tablet PO Q4H PRN Pain Rated 4-6 Apixaban 5 mg 05/08/24 21:00 05/11/24 09:10 Apixaban 5 Mg Tablet PO 5 mg Q12HR DARIUSZ Administration Aspirin 81 mg 05/06/24 09:00 05/11/24 09:10 Aspirin 81 Mg Enteric Tablet PO 81 mg DAILY DARIUSZ Administration Atorvastatin Calcium 20 mg 05/06/24 09:00 05/11/24 09:10 Atorvastatin 20 Mg Tablet PO 20 mg DAILY DARIUSZ Administration Docusate Sodium 100 mg 05/05/24 17:00 05/11/24 09:10 Docusate Sodium 100 Mg Capsule PO 100 mg BID DARIUSZ Administration Donepezil HCl 5 mg 05/05/24 21:00 05/10/24 20:36 Donepezil Hcl 5 Mg Tablet PO 5 mg QHS DARIUSZ Administration Vancomycin HCl 1,250 mg in 250 mls @ 166.667 mls/hr 05/09/24 21:00 05/10/24 20:39 Vancomycin 1,250 Mg/Ns 250 Ml IVPB 166.67 mls/hr Q24H DARIUSZ Administration Metoprolol Tartrate 25 mg 05/06/24 16:40 05/11/24 09:09 Metoprolol Tartrate 25 Mg Tablet PO 25 mg QAM DARIUSZ Administration Mupirocin 1 applic 05/10/24 09:00 05/11/24 09:10 Mupirocin 2% Oint 22 Gm Tube EACH NARE 1 applic Q12HR DARIUSZ Administration Niacin 500 mg 05/08/24 21:00 05/10/24 20:36 Niacin Sa 500 Mg Tablet PO 500 mg HS DARIUSZ Administration Polyethylene Glycol 17 gm 05/06/24 09:00 05/11/24 09:10 Polyethylene Glycol 3350 17 Gm Powd.Pack PO 17 gm DAILY DARIUSZ Administration Quetiapine Fumarate 75 mg 05/07/24 21:39 05/10/24 20:39 Quetiapine Fumarate 25 Mg Tablet PO 75 mg HS PRN Administration Agitation Radiology Results: ITS Impressions Head CT 05/05/24 10:52 IMPRESSION: 1. No acute intracranial process. 2. Stable age-related changes including moderate diffuse volume loss and mild scattered white matter hypoattenuation consistent with chronic small vessel ischemic disease. Chest/Abdomen/Pelvis CT 05/06/24 16:14 IMPRESSION: Status post sternotomy 3.6 cm posterior aortic arch aneurysm; no thoracic aortic dissection Moderate bilateral pleural effusions, compressive atelectasis of both lower lobes and mild dependent atelectasis of the lingula and middle lobe Interval mild prominence of the right paratracheal and aortopulmonary window nodes since 02/20/2024, likely reactive Cholelithiasis Bladder wall thickening; this may be due to prostatomegaly, cystitis is not excluded Severe diverticulosis of the left colon; no evidence of diverticulitis Chest X-Ray 05/08/24 06:18 IMPRESSION: 1. Worsened diffuse lung disease, right worse than left, consistent with pulmonary edema versus pneumonia. 2. Small pleural effusions. 3. Cardiomegaly. Labs Labs: Laboratory Results - last 24 hr 05/11/24 07:32 Sodium 141 Potassium 3.9 Chloride 114 H Carbon Dioxide 29 Anion Gap -2 L BUN 22 H Creatinine 1.10 Estim Creat Clear Calc 43 Estimated GFR > 60 Glucose 94 Calcium 8.6 Total Bilirubin 0.5 AST 35 ALT 20 Alkaline Phosphatase 56 Total Protein 5.0 L Albumin 2.3 L
[2024-05-11 14:00] VITALS: BP 118/50; PULSE 96; RESP 16; TEMP 36.8; O2SAT 98
[2024-05-11 20:13] LABS: Vancomycin Trough 12.6 ug/mL (10.0-20.0)
[2024-05-11] MEDS: DONEPEZIL HCL 5 MG TABLET PO (20:34)
[2024-05-11] MEDS: NIACIN SA 500 MG TABLET PO (20:34)
[2024-05-11] MEDS: QUEtiapine FUMARATE 25 MG TABLET 75 MG PO (20:35)
[2024-05-11 21:13] LABS: Platelet Antibody, Direct IgG NEGATIVE (NEGATIVE)
[2024-05-11 21:54] VITALS: BP 144/86; PULSE 95; RESP 20; TEMP 36.2; O2SAT 91
[2024-05-11] MEDS: VANCOMYCIN 1,750 MG/NS 500 ML 1,750 MG/500 ML BAG 250 MG IVPB (22:28)
[2024-05-12 05:26] VITALS: BP 115/76; PULSE 108; RESP 18; TEMP 36.9; O2SAT 92
[2024-05-12] MEDS: METOPROLOL TARTRATE 25 MG TABLET PO (08:03)
[2024-05-12] MEDS: ATORVASTATIN 20 MG TABLET PO (08:03)
[2024-05-12] MEDS: DOCUSATE SODIUM 100 MG CAPSULE PO ×2 (08:03→16:24)
[2024-05-12] MEDS: APIXABAN 5 MG TABLET PO ×2 (08:03→20:42)
[2024-05-12] MEDS: polyethylene glycoL 3350 17 GM POWD.PACK PO (08:03)
[2024-05-12] MEDS: ASPIRIN 81 MG ENTERIC TABLET PO (08:03)
[2024-05-12 09:05] LABS: Hematocrit 28.7 % (42.0-52.0); Hemoglobin 8.9 g/dL (14.0-18.0); Mean Corpuscular Hemoglobin 27.8 pg (26-34); Mean Corpuscular Volume 89.7 fl (80-100); Mean Platelet Volume 11.4 fl (7.4-10.4); Platelet Count Result 148 k/mm3 (150-375); Red Cell Distribution Width 15.9 % (11.5-14.5)
[2024-05-12] MEDS: MUPIROCIN 2% OINT 22 GM TUBE 1 APPLIC EACH NARE ×2 (09:44→20:42)
[2024-05-12 14:00] VITALS: BP 138/65; PULSE 56; RESP 14; TEMP 36.1; O2SAT 97
--- NOTE | 2024-05-12 15:33 | PM.IMPN ---
Progress Note: A&P Assessment and Plan (1) Sepsis: Qualifiers: Sepsis acute organ dysfunction status: without acute organ dysfunction Sepsis type: sepsis due to unspecified organism Qualified Code(s): A41.9 - Sepsis, unspecified organism Code(s): A41.9 - Sepsis, unspecified organism Status: Acute Assessment and Plan: Patient was here in February for AMS and sepsis from chest wall cellulitis. He was bacteremic with MRSA. JOSEPH (02/25/24) showing PM wires were infected. He ultimately was hospitalized at [place] then at a rehab facility. He was home for about 1-2 days before developing worsening confusion that prompted him to present to the ED here. CXR showing airspace opacities in the lower lung zones c/w with atelectasis vs PNA. He was febrile. Lactic acid was 3.7. WBC 16. He was tachypneic. BP was soft. All c/w sepsis. He was treated with appropriate fluid regiment. BCx collected and he was started on Rocephin and Azithromycin; Vanc was added. CT Ch/A/P with contrast showing moderate bilateral pleural effusions with dependent atelectasis, large GS in the GB fundus, diffuse atherosclerotic disease. 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 JOSEPH 05/08 showing no evidence of vegetations on the valves of PM wires. BCx (05/04) positive for MRSA BCx (05/05) positive for MRSA BCx (05/06) positive for MRSA rpeat bCx 05/09 postive for staph aureus Source felt to be PNA. Could be PM site but no edema/fat stranding noted at old PM site or current PM site. White count trended down and now normal BCx remain positive probably related to subtherapeutic Vanco level. Vanco level therapeutic 05/08 Continue Vanco. Repeat BCx 05/09 [facility] came back positive as well. due to persistent bacteremia, will intiate call to [facility] for ID consultation and evaluation patient was treated with daptomycin and ceftaroline until 04/28/2024 at [place] MRSA was vancomycin intermediate and also daptomycin nonssusceptible one strain. treated with combination of daptomycin 10 mg/kg daily along with ceftaroline 600 mg bid. upon review of [facility] records. will reinitate daptomycin and ceftraroline. will plan to tx to [facility] or [facility] which ever is quicker for transfer. call placed. (2) Bacteremia: Code(s): R78.81 - Bacteremia Status: Acute Assessment and Plan: As above (3) Pneumonia: Code(s): J18.9 - Pneumonia, unspecified organism Status: Acute Assessment and Plan: As above. CXR repeated showing worsening diffuse lung disease R>L. Possibly PNA but consider edema given that he was on IVF. Given IV Lasix IV. Clinically appears improved. Remains on room air. Follow. Continue IV Vanco. (4) NANI (acute kidney injury): Code(s): N17.9 - Acute kidney failure, unspecified Status: Acute Assessment and Plan: Baseline creatinine is normal at 0.8. Creatinine 1.3 on admission IV fluids given and Cr trended down to baseline. IV fluids stopped Cr up today related to lasix. Continue to monitor. (5) Pacemaker: Code(s): Z95.0 - Presence of cardiac pacemaker Status: Acute Assessment and Plan: Patient was here in February for AMS and sepsis from chest wall cellulitis. He was bacteremic with MRSA. JOSEPH (02/25/24) showing evidence of infective vegetation associated with the pacemaker lead/leads in the right atrium but no clear-cut evidence of valvular involvement with the vegetation however the JOSEPH was not of ideal quality. Patient followed up with his physician at [facility]. The infected device was removed. He had a temporary pacemaker until cleared and then had a permanent pacemaker placed in the left upper chest. JOSEPH showing no evidence of recurrent infected PM Plan as above. (6) Aortic valve disease: Code(s): I35.9 - Nonrheumatic aortic valve disorder, unspecified Status: Acute Assessment and Plan: Patient with aortic valve disease s/p AVR with aortic root replacement. No evidence of endocarditis. (7) Severe protein-calorie malnutrition: Code(s): E43 - Unspecified severe protein-calorie malnutrition Status: Acute Assessment and Plan: Patient with severe protein calorie malnutrition related to chronic loss of appetite, recent hospitalization, weight loss of 10% over the past 3 months and intake less than 75% of needs for greater than 1 month. He also has severe muscle wasting and severe fat loss. Continue supplements. Dietary consult. (8) Altered mental status: Code(s): R41.82 - Altered mental status, unspecified Status: Acute Assessment and Plan: Patient has underlying dementia and is on Aricept which was resumed. Patient had altered mental status most likely related to pneumonia and bacteremia. CT the brain showing no acute findings Mental status stable. Monitor Plan TCP - Not noted before. B12 level okay. Probably related to sepsis. No Heparin for now. 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 DVT prophylaxis - SCDs Code status - full code Disp - PT/OT Subjective Date/time seen: 05/12/24 15:33 Exam Narrative: Vital signs stable Gen - NARD lying flat in bed Chest - Air entry is better. CV - RRR S1/S2 Abd - Soft, NT/ND, Positive BS Ext - No pedal edema Psych - mood ok Skin - Warm and dry. Objective Data Vital Signs Vital Signs: Vital Signs - 24 hr 05/11/24 21:54 05/12/24 05:26 05/12/24 08:00 Temperature 97.2 F L 98.5 F Pulse Rate 95 108 H Respiratory Rate 20 18 Blood Pressure 144/86 H 115/76 Pulse Oximetry 91 92 Oxygen Delivery Room Air 05/12/24 14:00 Temperature 97.0 F L Pulse Rate 56 L Respiratory Rate 14 Blood Pressure 138/65 Pulse Oximetry 97 Oxygen Delivery Intake/Output Intake/Output: Intake & Output 05/09/24 05/10/24 05/11/24 05/12/24 23:59 23:59 23:59 23:59 Intake Total 1388 1990 750 866 Output Total 1800 1000 475 Balance 1388 190 -250 391 Meds/Results Medications: Active Medications Generic Name Dose Route Start Last Admin Trade Name Freq PRN Reason Stop Dose Admin Acetaminophen 500 mg 05/08/24 14:23 Acetaminophen 500 Mg Tablet PO Q6H PRN pain Hydrocodone Bitart/Acetaminophen 1 tab 05/04/24 18:08 Hydrocodone/Acetaminophen (*Crx) 5-325 Mg Tablet PO Q4H PRN Pain Rated 4-6 Apixaban 5 mg 05/08/24 21:00 05/12/24 08:03 Apixaban 5 Mg Tablet PO 5 mg Q12HR DARIUSZ Administration Aspirin 81 mg 05/06/24 09:00 05/12/24 08:03 Aspirin 81 Mg Enteric Tablet PO 81 mg DAILY DARIUSZ Administration Atorvastatin Calcium 20 mg 05/06/24 09:00 05/12/24 08:03 Atorvastatin 20 Mg Tablet PO 20 mg DAILY DARIUSZ Administration Docusate Sodium 100 mg 05/05/24 17:00 05/12/24 08:03 Docusate Sodium 100 Mg Capsule PO 100 mg BID DARIUSZ Administration Donepezil HCl 5 mg 05/05/24 21:00 05/11/24 20:34 Donepezil Hcl 5 Mg Tablet PO 5 mg QHS DARIUSZ Administration Vancomycin HCl 1,750 mg in 500 mls @ 250 mls/hr 05/11/24 22:00 05/11/24 22:28 Vancomycin 1,750 Mg/Ns 500 Ml IVPB 250 mls/hr Q24H DARIUSZ Administration Metoprolol Tartrate 25 mg 05/06/24 16:40 05/12/24 08:03 Metoprolol Tartrate 25 Mg Tablet PO 25 mg QAM DARIUSZ Administration Mupirocin 1 applic 05/10/24 09:00 05/12/24 09:44 Mupirocin 2% Oint 22 Gm Tube EACH NARE 1 applic Q12HR DARIUSZ Administration Niacin 500 mg 05/08/24 21:00 05/11/24 20:34 Niacin Sa 500 Mg Tablet PO 500 mg HS DARIUSZ Administration Polyethylene Glycol 17 gm 05/06/24 09:00 05/12/24 08:03 Polyethylene Glycol 3350 17 Gm Powd.Pack PO 17 gm DAILY DARIUSZ Administration Quetiapine Fumarate 75 mg 05/07/24 21:39 05/11/24 20:35 Quetiapine Fumarate 25 Mg Tablet PO 75 mg HS PRN Administration Agitation Radiology Results: ITS Impressions Head CT 05/05/24 10:52 IMPRESSION: 1. No acute intracranial process. 2. Stable age-related changes including moderate diffuse volume loss and mild scattered white matter hypoattenuation consistent with chronic small vessel ischemic disease. Chest/Abdomen/Pelvis CT 05/06/24 16:14 IMPRESSION: Status post sternotomy 3.6 cm posterior aortic arch aneurysm; no thoracic aortic dissection Moderate bilateral pleural effusions, compressive atelectasis of both lower lobes and mild dependent atelectasis of the lingula and middle lobe Interval mild prominence of the right paratracheal and aortopulmonary window nodes since 02/20/2024, likely reactive Cholelithiasis Bladder wall thickening; this may be due to prostatomegaly, cystitis is not excluded Severe diverticulosis of the left colon; no evidence of diverticulitis Chest X-Ray 05/12/24 10:04 IMPRESSION: 1. Small bilateral pleural effusions with associated bibasilar atelectasis and/or pneumonia. Labs Labs: Laboratory Results - last 24 hr 05/08/24 05/11/24 05/12/24 08:08 19:47 07:50 WBC 7.0 RBC 3.20 L Hgb 8.9 L Hct 28.7 L MCV 89.7 MCH 27.8 MCHC 31.0 L RDW 15.9 H Plt Count 148 L MPV 11.4 H Vancomycin Trough 12.6 Direct Plt-Bound IgG Ab Negative
[2024-05-12] MEDS: CEFTAROLINE IVPB (16:58)
[2024-05-12] MEDS: [UNRECOGNIZED DRUG - OTHER] IVPB (16:58)
[2024-05-12 17:12] LABS: Creatine Kinase 27 U/L (55-170)
[2024-05-12] MEDS: DAPTOmycin 700 MG in SODIUM CHLORIDE 0.9% IV 50 ML 100 MG IVPB (17:12)
--- NOTE | 2024-05-12 17:55 | PC.NURSE ---
Telephone triage given to [facility] team. No bed available at this time. Vital signs reported.
[2024-05-12 20:00] VITALS: PULSE 102; RESP 18; O2SAT 91
[2024-05-12] MEDS: DONEPEZIL HCL 5 MG TABLET PO (20:42)
[2024-05-12] MEDS: NIACIN SA 500 MG TABLET PO (20:42)
[2024-05-12] MEDS: QUEtiapine FUMARATE 25 MG TABLET 75 MG PO (20:42)
[2024-05-12 21:31] VITALS: BP 102/65; PULSE 102; RESP 18; TEMP 36.6; O2SAT 91
--- NOTE | 2024-05-13 08:03 | P.TS_ITS ---
Transfer Discharge Sum: Prov Provider Date of admission: 05/05/24 16:48 Primary care physician: Robert Whitlock, MD Admitting clinician: Dennis Hermosillo MD Consults: 05/04/24 19:30 Consult to Physician Routine Comment: Consulting Provider: Ariana Barlow inside account representative/MD group to consult: Cardiology Reason for consultation: possible JOSEPH Has provider been notified: Yes DS: Admitting Diagnosis Discharge Date 05/13/24 Admitting Diagnosis Confusion fever DS: Discharge Diagnosis Discharge Diagnosis (1) Sepsis: Qualifiers: Sepsis acute organ dysfunction status: without acute organ dysfunction Sepsis type: sepsis due to unspecified organism Qualified Code(s): A41.9 - Sepsis, unspecified organism Code(s): A41.9 - Sepsis, unspecified organism Status: Acute (2) Bacteremia: Code(s): R78.81 - Bacteremia Status: Acute (3) Pneumonia: Code(s): J18.9 - Pneumonia, unspecified organism Status: Acute (4) NANI (acute kidney injury): Code(s): N17.9 - Acute kidney failure, unspecified Status: Acute (5) Pacemaker: Code(s): Z95.0 - Presence of cardiac pacemaker Status: Acute (6) Aortic valve disease: Code(s): I35.9 - Nonrheumatic aortic valve disorder, unspecified Status: Acute (7) Severe protein-calorie malnutrition: Code(s): E43 - Unspecified severe protein-calorie malnutrition Status: Acute (8) Altered mental status: Code(s): R41.82 - Altered mental status, unspecified Status: Acute Transfer Discharge Sum: Med Medications Active and Home Medications: Home Medications apixaban 5 mg tablet (Eliquis) 5 mg PO BID 02/20/24 [History Confirmed 05/04/24] atorvastatin 20 mg tablet 20 mg PO DAILY 02/20/24 [History Confirmed 05/04/24] donepezil 5 mg tablet 5 mg PO QHS 02/20/24 [History Confirmed 05/04/24] metoprolol tartrate 25 mg tablet 25 mg PO QAM 02/20/24 [History Confirmed 05/04/24] acetaminophen 500 mg capsule 500 mg PO Q6H PRN pain 05/04/24 [History Confirmed 05/04/24] aspirin 81 mg tablet,delayed release (Adult Aspirin Regimen) 81 mg PO DAILY 05/04/24 [History Confirmed 05/04/24] docusate sodium 100 mg capsule 100 mg PO BID 05/04/24 [History Confirmed 05/04/24] niacin 500 mg capsule,extended release 500 mg PO HS 05/04/24 [History Confirmed 05/04/24] polyethylene glycol 3350 17 gram/dose oral powder (Miralax) 17 g PO DAILY 05/04/24 [History Confirmed 05/04/24] Transfer Discharge Sum: Hosp Hospital Course Hospital course: Tom Garner is a 83 year old male who presented with # Sepsis: Patient was here in February for AMS and sepsis from chest wall cellulitis. He was bacteremic with MRSA. JOSEPH (02/25/24) showing PM wires were infected. He ultimately was hospitalized at [place] then at a rehab facility. He was home for about 1-2 days before developing worsening confusion that prompted him to present to the ED here. CXR showing airspace opacities in the lower lung zones c/w with atelectasis vs PNA. He was febrile. Lactic acid was 3.7. WBC 16. He was tachypneic. BP was soft. All c/w sepsis. He was treated with appropriate fluid regiment. BCx collected and he was started on Rocephin and Azithromycin; Vanc was added. CT Ch/A/P with contrast showing moderate bilateral pleural effusions with de pendent atelectasis, large GS in the GB fundus, diffuse atherosclerotic disease. 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 JOSEPH 05/08 showing no evidence of vegetations on the valves of PM wires. BCx (05/04) positive for MRSA BCx (05/05) positive for MRSA BCx (05/06) positive for MRSA rpeat bCx 05/09 postive for staph aureus Source felt to be PNA. Could be PM site but no edema/fat stranding noted at old PM site or current PM site. White count trended down and now normal BCx remain positive probably related to subtherapeutic Vanco level. Vanco level therapeutic 05/08 Continue Vanco. Repeat BCx 05/09 [facility] came back positive as well. due to persistent bacteremia, will intiate call to [facility] for ID consultation and evaluation patient was treated with daptomycin and ceftaroline until 04/28/2024 at [place] MRSA was vancomycin intermediate and also daptomycin nonssusceptible one strain. treated with combination of daptomycin 10 mg/kg daily along with ceftaroline 600 mg bid. upon review of [place] records. will reinitate daptomycin and ceftraroline. transferred to [place] for further treatment # Bacteremia: As above # Pneumonia: As above. CXR repeated showing worsening diffuse lung disease R>L. Possibly PNA but consider edema given that he was on IVF. Given IV Lasix IV. Clinically appears improved. Remains on room air. Follow. Continue IV Vanco. # NANI (acute kidney injury): Baseline creatinine is normal at 0.8. Creatinine 1.3 on admission IV fluids given and Cr trended down to baseline. IV fluids stopped Cr up today related to lasix. Continue to monitor. # Pacemaker: Patient was here in February for AMS and sepsis from chest wall cellulitis. He was bacteremic with MRSA. JOSEPH (02/25/24) showing evidence of infective vegetation associated with the pacemaker lead/leads in the right atrium but no clear-cut evidence of valvular involvement with the vegetation however the JOSEPH was not of ideal quality. Patient followed up with his physician at [facility]. The infected device was removed. He had a temporary pacemaker until cleared and then had a permanent pacemaker placed in the left upper chest. JOSEPH showing no evidence of recurrent infected PM Plan as above. # Aortic valve disease: Patient with aortic valve disease s/p AVR with aortic root replacement. No evidence of endocarditis. # Severe protein-calorie malnutrition: Patient with severe protein calorie malnutrition related to chronic loss of appetite, recent hospitalization, weight loss of 10% over the past 3 months and intake less than 75% of needs for greater than 1 month. He also has severe muscle wasting and severe fat loss. Continue supplements. Dietary consult. # Altered mental status: Patient has underlying dementia and is on Aricept which was resumed. Patient had altered mental status most likely related to pneumonia and bacteremia. CT the brain showing no acute findings Mental status stable. Monitor #TCP - Not noted before. B12 level okay. Probably related to sepsis. No Heparin for now. 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 #DVT prophylaxis - SCDs #Code status - full code #Disp - PT/OT Time Spent with Patient Time attestation: Total time spent providing and/or coordinating transfer services: 50 minutes Exam Narrative: Gen - NARD lying flat in bed Chest - Air entry is better. CV - RRR S1/S2 Abd - Soft, NT/ND, Positive BS Ext - No pedal edema Psych - mood ok Skin - Warm and dry. DS: Data Data Completed and Pending Completed studies during hospitalization: Exam Type: CA echo transesophageal Procedure Details The patient arrived in a fasting state after obtaining informed consent. The transesophageal probe was passed into the posterior pharynx, mid-esophagus, distal esophagus, and gastric fundus. Imaging was performed at multiple levels. The patient tolerated the procedure well and there were no complications. The patient was transferred out of the examination area in satisfactory condition. Summary 1. There are no vegetations on the visualized valves or the pacemaker leads. Left Ventricle The left ventricle is normal in size and systolic function. Right Ventricle There is a pacemaker lead with no evidence of vegetation. Left Atria The left atrium is dilated. Right Atria The right atrium is dilated. There is a pacemaker lead in the right atrium with no evidence of vegetation. Atrial Septum The atrial septum is normal. Atrial Appendage There is no thrombus in the left atrial appendage. PW of left atrial appendage showed a velocity of 62.9cm/s. Aortic Valve There is a bioprosthetic valve in place that is opening well with no evidence of vegetation. There is trace aortic valve regurgitation. Pulmonic Valve The pulmonic valve is not well visualized. There is no color Doppler evidence of pulmonic valve regurgitation. Mitral Valve The mitral valve is sclerotic and there is mild mitral regurgitation with 2 distinct jets. Tricuspid Valve The tricuspid valve is normal. Pericardium/Pleural There is no pericardial effusion. Aorta There is no atherosclerotic plaque in visualized portions of the aorta. Labs on day of discharge: Labs from last 24 hours 05/12/24 05/12/24 16:53 07:50 WBC 7.0 RBC 3.20 L Hgb 8.9 L Hct 28.7 L MCV 89.7 MCH 27.8 MCHC 31.0 L RDW 15.9 H Plt Count 148 L MPV 11.4 H Total Creatine Kinase 27 L Imaging Radiologist's impression: ITS Impressions Chest X-Ray 05/04/24 17:12 IMPRESSION: 1. Airspace opacities in the lower lung zones, consistent with atelectasis versus pneumonia. Head CT 05/05/24 10:52 IMPRESSION: 1. No acute intracranial process. 2. Stable age-related changes including moderate diffuse volume loss and mild scattered white matter hypoattenuation consistent with chronic small vessel ischemic disease. Chest/Abdomen/Pelvis CT 05/06/24 16:14 IMPRESSION: Status post sternotomy 3.6 cm posterior aortic arch aneurysm; no thoracic aortic dissection Moderate bilateral pleural effusions, compressive atelectasis of both lower lobes and mild dependent atelectasis of the lingula and middle lobe Interval mild prominence of the right paratracheal and aortopulmonary window nodes since 02/20/2024, likely reactive Cholelithiasis Bladder wall thickening; this may be due to prostatomegaly, cystitis is not excluded Severe diverticulosis of the left colon; no evidence of diverticulitis Chest X-Ray 05/08/24 06:18 IMPRESSION: 1. Worsened diffuse lung disease, right worse than left, consistent with pulmonary edema versus pneumonia. 2. Small pleural effusions. 3. Cardiomegaly. Chest X-Ray 05/12/24 10:04 IMPRESSION: 1. Small bilateral pleural effusions with associated bibasilar atelectasis an d/or pneumonia.
== END 2024-05-13 01:52 | disposition short-term general hospital (02) | DRG 871 ==
LOC: ANHED 18:23 → ANHIMU 18:49 → ANH3MEDSUR 05-07 18:41
PROVIDERS: Emergency Medicine; Internal Medicine; Admitting Provider General Practice; Emergency Provider Emergency Medicine; PCP Internal Medicine; Visit Provider Internal Medicine
PROC: B24BZZ4 Ultrasonography of Heart with Aorta, Transesophageal (ICD-10-PCS; CPT 93312; principal; 2024-05-08 12:00)
DX: A41.02 Sepsis due to Methicillin resistant Staphylococcus aureus (principal); E43 Unspecified severe protein-calorie malnutrition; J18.9 Pneumonia, unspecified organism; J15.9 Unspecified bacterial pneumonia; N17.9 Acute kidney failure, unspecified; F03.90 Unspecified dementia, unspecified severity, without behavioral disturbance, psychotic disturbance, mood disturbance, and anxiety; I35.9 Nonrheumatic aortic valve disorder, unspecified; I25.10 Atherosclerotic heart disease of native coronary artery without angina pectoris; I48.91 Unspecified atrial fibrillation; I10 Essential (primary) hypertension; I95.9 Hypotension, unspecified; Z20.822 Contact with and (suspected) exposure to COVID-19; Z79.01 Long term (current) use of anticoagulants; Z79.82 Long term (current) use of aspirin; Z95.0 Presence of cardiac pacemaker; Z87.891 Personal history of nicotine dependence; Z95.4 Presence of other heart-valve replacement; Z95.1 Presence of aortocoronary bypass graft; Z86.79 Personal history of other diseases of the circulatory system
CPT/HCPCS: 36415; 70450; 71045; 71046; 71260; 74177; 80048; 80053; 80069; 80202; 81001; 82550; 82565; 82607; 82746; 82948; 83605; 83735; 84145; 85025; 85027; 85049; 85055; 85610; 85730; 86022; 86023; 86140; 87040; 87086; 87181; 87637; 87641; 93005; 93312; 93320; 93325; 97110; 97116; 97161; 97165; 97530; 97535; 99285; A9270; G0378; J0456; J0696; J0712; J0878; J1200; J1940; J2060; J2250; J2704; J3010; J3370; J3480; J7030; J7040; Q9967

== ENCOUNTER 2024-06-03 12:13 | Emergency (ER) | payer MEDICARE, SELFPAY ==
[2024-06-03] VITALS (34 sets, daily range): BP systolic 103–138; BP diastolic 61–101; PULSE 60–74; RESP 12–42; TEMP 36.4–36.7; O2SAT 98–100
--- NOTE | ~2024-06-03 | XR_ITS ---
EXAMINATION: XR chest PICC line Exam Date/Time: 06/03/2024 14:20 [employer] HISTORY: picc placement Comparison: 05/12/2024. RESULT: Lines, tubes, and devices: Right upper extremity PICC which coils multiple times at the level of the axillary/subclavian vein and turns back on itself, tip then directed retrograde. Intact sternotomy w ires. Left chest pacer with intact leads. Lungs and pleura: Clear. Cardiomediastinal silhouette: Stable. Other: No acute osseous or upper abdominal finding. IMPRESSION: Malpositioned right PICC, recommend adjustment/replacement. Reviewed, dictated and finalized at location K. [employer] OFF[employer]ER
--- NOTE | 2024-06-03 16:21 | PC.NURSE ---
notified MD quarles that patient has attempted to urinate multiple times without success, patient having pain at this time. patient bladder scanned and has over 1000ml urine in bladder.
[2024-06-03 17:25] LABS: Basophils Percent Auto 0.3 % (0.2-1.2); Eosinophils Absolute Auto 0.3 K/mm3 (0-0.3); Eosinophils Percent Auto 4.3 % (0-4.4); Hematocrit 29.5 % (42.0-52.0); Hemoglobin 9.3 g/dL (14.0-18.0); Immature Granulocyte Absolute 0.07 K/mm3 (0.00-0.031); Immature Granulocyte Percent A 0.9 % (0-0.5); Lymphocytes Percent Auto 22.7 % (18.3-44.2); Mean Corpuscular HGB Conc 31.5 g/dl (32-36); Mean Corpuscular Volume 85.8 fl (80-100); Mean Platelet Volume 11.2 fl (7.4-10.4); Monocytes Absolute Auto 0.5 K/mm3 (0.1-0.6); Monocytes Percent Auto 7.2 % (2.6-8.5); Neutrophils Absolute Auto 4.8 K/mm3 (1.3-6.7); Neutrophils Percent Auto 64.6 % (45.5-73.1); Platelet Count Result 143 k/mm3 (150-375); Red Blood Count 3.44 M/mm3 (4.6-6.20); Red Cell Distribution Width 15.4 % (11.5-14.5); White Blood Count 7.5 K/mm3 (4.5-10.0)
[2024-06-03 17:32] LABS: Add Urine Microscopic? YES; Appearance Urine Clear (Clear); Bacteria Urine None Seen /hpf; Bilirubin Urine Negative (Negative); Blood Urine 2+ (Negative); Color Urine Dark Yellow (Yellow); Glucose Urine UA Negative (Negative); Ketones Urine Trace mg/dL (Negative); Leukocyte Esterase Ur 2+ LEU/UL (Negative); Nitrate Urine Negative (Negative); Non Pathogenic Casts 0-2; Protein Urine 1+ mg/dL (Negative); RBC Urine 21-50 /hpf (0-2); Specific Grav Ur 1.017 (1.001-1.035); Squamous Epithelial Cell Urine None Seen /hpf (Few); Urobilinogen Urine 0.2 mg/dL (<2.0); WBC Urine 51-100 /hpf (0-3)
[2024-06-03 17:35] LABS: Alanine Aminotransferase 13 U/L (6-50); Albumin Level 3.1 g/dL (3.5-5.1); Alkaline Phosphatase 87 U/L (38-126); Anion Gap 7 mmol/L (4-12); Aspartate Amino Transferase 27 U/L (17-59); Bilirubin,Total 0.5 mg/dL (0.2-1.3); Blood Urea Nitrogen 18 mg/dL (9-20); Calcium 8.5 mg/dL (8.4-10.2); Carbon Dioxide 26 mmol/L (22-30); Chloride 108 mmol/L (98-107); Estimated CRCL calculation 40 ml/min; Estimated Glomerular Filt Rate > 60; Glucose 95 mg/dL (65-110); Potassium 4.4 mmol/L (3.4-5.0); Sodium 141 mmol/L (137-145)
--- NOTE | 2024-06-03 18:59 | ED_ITS ---
HPI - General Adult General Chief complaint: Unspecified Stated complaint: PICC line out Time Seen by Provider: 06/03/24 12:33 Source: family and EMS Mode of arrival: EMS Limitations: dementia History of Present Illness HPI narrative: This is an 83M with history of MRSA sepsis and pacemaker wire vegetation who is brought in by EMS from his group home after accidentally removing his PICC line. The patient receives Daptomycin and Ceftaroline daily with plan to continue until June 24, 2024. He has no other complaints at this time. Related Data Home Medications ?Medication ?Instructions ?Recorded ?Confirmed ?Last Taken ?Type apixaban 5 mg tablet (Eliquis) 5 mg PO BID 02/20/24 05/04/24 05/03/24 History atorvastatin 20 mg tablet 20 mg PO DAILY 02/20/24 05/04/24 05/03/24 History donepezil 5 mg tablet 5 mg PO QHS 02/20/24 05/04/24 05/03/24 History metoprolol tartrate 25 mg tablet 25 mg PO QAM 02/20/24 05/04/24 05/03/24 History acetaminophen 500 mg capsule 500 mg PO Q6H PRN pain 05/04/24 05/04/24 Unknown History aspirin 81 mg tablet,delayed 81 mg PO DAILY 05/04/24 05/04/24 05/03/24 History release (Adult Aspirin Regimen) docusate sodium 100 mg capsule 100 mg PO BID 05/04/24 05/04/24 05/03/24 History niacin 500 mg capsule,extended 500 mg PO HS 05/04/24 05/04/24 05/03/24 History release polyethylene glycol 3350 17 17 g PO DAILY 05/04/24 05/04/24 Unknown History gram/dose oral powder (Miralax) Allergies Allergy/AdvReac Type Severity Reaction Status Date / Time No Known Allergies Allergy Verified 06/03/24 12:22 Review of Systems 2 Review of Systems: All systems reviewed & are unremarkable except as noted in HPI and below PMFSH Past Medical History Medical History Pacemaker Aortic valve disease s/p AVR and aortic root replacement CAD (coronary artery disease) CABG 1999 Essential (primary) hypertension Family History Family History Sibling Malignant neoplasm of prostate Mother Family history of heart disease in male family member before age 55 Father Family history of heart disease in male family member before age 55 Social History Social History Smoking status: Former smoker Tobacco type: cigarettes Alcohol intake: never Substance use: never Do You Feel Safe in your Home?: Yes Lack of Transportation: No Lack of Food: Never True Current Housing: I Have Housing Concerned About Future Housing: No Difficulty Paying Gas/Electric Bills: No Difficulty Paying for Meds: No Currently Unemployed: No Education: High School Diploma/GED Difficulty w/ Childcare or Family Care: No Spiritual care concerns: No Exam 2 Narrative: GENERAL: Well-developed, well-nourished, and in no acute distress. pleasantly demented HEAD: Normocephalic, atraumatic. EYES: PERRLA and EOMI. CHEST: Clear to auscultation. No respiratory distress. No wheezes rales or rhonchi HEART: Regular rate and rhythm. No murmur heard. Normal peripheral pulses. ABDOMEN: Soft, nontender, nondistended, normal active bowel sounds. EXTREMITIES: A pressure dressing is in place at the medial aspect of the right arm with small amount of dry blood though no active bleeding. Normal range of motion. No edema. SKIN: Warm, dry, no rash. NEURO: Alert and oriented x2. No focal deficit. Moving all 4 limbs spontaneously PSYCH: Normal mood and affect. Course Course Emergency Course: 16:20 - Vascular access nursing staff attempted to place a PICC, however the distal catheter coiled at the thoracic outlet. I received a call from the patient's primary care provider who states she was advised by [facility] that the patient must have a PICC line and must be transferred to [facility]. I discussed the patient with [facility] ID physician, Dr. Knowles. IR is not available at [facility] over the weekend and admission for peripheral antibiotics is preferred until a PICC can be placed. Charge nurse attempting to contact PICC team for assistance. 18:50 - A midline was successfully placed. Nursing staff noted the patient had difficulty urinating. A bladder scan showed greater than 1000 mL. A the Valdez catheter was placed with drainage of 1100 cc. Urinalysis shows changes consistent with urinary tract infection. The patient's current antibiotics adequately cover Gram-positive and Gram-negative species. Will discharge. I discussed the findings and recommendations with the patient and his spouse. Discussed return and emergency precautions including signs/symptoms of acute abdomen at sepsis. The patient and his spouse voiced understanding and agreement with the plan. All questions answered to their satisfaction. Vital Signs Vital signs: Vital Signs Temperature 97.6 F 06/03/24 12:09 Pulse Rate 60 06/03/24 12:09 Respiratory Rate 27 H 06/03/24 12:09 Blood Pressure 128/75 06/03/24 12:09 Pulse Oximetry 98 06/03/24 12:09 Oxygen Delivery Room Air 06/03/24 12:09 Temperature 98 F 06/03/24 21:27 Pulse Rate 60 06/03/24 21:27 Respiratory Rate 16 06/03/24 21:27 Blood Pressure 103/61 06/03/24 21:27 Pulse Oximetry 99 06/03/24 21:27 Oxygen Delivery Room Air 06/03/24 12:09 Medical Decision Making [facility] Narrative Medical decision making narrative: Plan: PICC line placement, reassess Differential Diagnosis Differential Diagnosis: Accidental PICC line removal, dementia, other Vital Signs Vital Signs: Vital Signs Temperature 97.6 F 06/03/24 12:09 Pulse Rate 60 06/03/24 12:09 Respiratory Rate 27 H 06/03/24 12:09 Blood Pressure 128/75 06/03/24 12:09 Pulse Oximetry 98 06/03/24 12:09 Oxygen Delivery Room Air 06/03/24 12:09 Temperature 98 F 06/03/24 21:27 Pulse Rate 60 06/03/24 21:27 Respiratory Rate 16 06/03/24 21:27 Blood Pressure 103/61 06/03/24 21:27 Pulse Oximetry 99 06/03/24 21:27 Oxygen Delivery Room Air 06/03/24 12:09 Lab Data 06/03/24 17:18 06/03/24 17:18 Labs: Lab Results 06/03/24 Range/Units 17:18 WBC 7.5 (4.5-10.0) K/mm3 RBC 3.44 L (4.6-6.20) M/mm3 Hgb 9.3 L (14.0-18.0) g/dL Hct 29.5 L (42.0-52.0) % MCV 85.8 (80-100) fl MCH 27.0 (26-34) pg MCHC 31.5 L (32-36) g/dl RDW 15.4 H (11.5-14.5) % Plt Count 143 L (150-375) k/mm3 MPV 11.2 H (7.4-10.4) fl Immature Gran % (Auto) 0.9 H (0-0.5) % Neut % (Auto) 64.6 (45.5-73.1) % Lymph % (Auto) 22.7 (18.3-44.2) % [place] % (Auto) 7.2 (2.6-8.5) % Eos % (Auto) 4.3 (0-4.4) % Baso % (Auto) 0.3 (0.2-1.2) % Lymph # (Auto) 1.70 (0.9-3.2) K/mm3 [place] # (Auto) 0.5 (0.1-0.6) K/mm3 Eos # (Auto) 0.3 (0-0.3) K/mm3 Baso # (Auto) 0.0 (0.0-0.1) K/mm3 Abs Immat Gran (auto) 0.07 H (0.00-0.031) K/mm3 Absolute Neuts (auto) 4.8 (1.3-6.7) K/mm3 Absolute Nucleated RBC 0.000 (0.0-0.012) K/mm3 Nucleated RBC % 0.0 (0.0-0.2) % Sodium 141 (137-145) mmol/L Potassium 4.4 (3.4-5.0) mmol/L Chloride 108 H (98-107) mmol/L Carbon Dioxide 26 (22-30) mmol/L Anion Gap 7 (4-12) mmol/L BUN 18 (9-20) mg/dL Creatinine 0.93 (0.7-1.3) mg/dL Estim Creat Clear Calc 40 ml/min Estimated GFR > 60 (59 - ) Glucose 95 (65-110) mg/dL Calcium 8.5 (8.4-10.2) mg/dL Total Bilirubin 0.5 (0.2-1.3) mg/dL AST 27 (17-59) U/L ALT 13 (6-50) U/L Alkaline Phosphatase 87 (38-126) U/L Total Protein 7.0 (6.3-8.2) g/dL Albumin 3.1 L (3.5-5.1) g/dL Urine Color Dark yellow (Yellow) Urine Appearance Clear (Clear) Urine pH 6.0 (5.0-9.0) Ur Specific [place] 1.017 (1.001-1.035) Urine Protein 1+ H (Negative) mg/dL Urine Glucose (UA) Negative (Negative) mg/dL Urine Ketones Trace H (Negative) mg/dL Ur Blood (Man) 2+ H (Negative) Urine Nitrate Negative (Negative) Urine Bilirubin Negative (Negative) Urine Urobilinogen 0.2 (<2.0) mg/dL Leukocyte Esterase Rfl 2+ H (Negative) MARLEN/UL Urine RBC 21-50 H (0-2) /hpf Urine WBC 51-100 H (0-3) /hpf Ur Squamous Epith Cells None seen (Few) /hpf Urine Bacteria None seen /hpf Urine Casts 0-2 Discharge Plan Discharge Clinical Impression: Acute urinary retention, PIC line (peripherally inserted central catheter) removal, Acute UTI Patient Disposition: [facility] Living Condition: Stable Instructions: Antibiotic Form, Urinary Retention in Men (ED), Urinary Tract Infection in Men (ED) Additional Instructions: Mr. Garner was seen in the emergency department. A midline was placed. The patient also demonstrated urinary retention for which a Valdez was placed. His urinalysis shows changes consistent with urinary tract infection, however his current antibiotics will cover. If he develops chest pain, shortness of breath, loss of consciousness, fevers severe abdominal pain, or if you have other emergent concerns for life, limb, or eyesight, return to the emergency department. Patient Language: Italian Prescriptions: No Action atorvastatin 20 mg tablet 20 mg PO DAILY donepezil 5 mg tablet 5 mg PO QHS metoprolol tartrate 25 mg Tablet 25 mg PO QAM Eliquis 5 mg tablet 5 mg PO BID aspirin [Adult Aspirin Regimen] 81 mg tablet,delayed release (DR/EC) 81 mg PO DAILY acetaminophen 500 mg capsule 500 mg PO Q6H PRN (Reason: pain) docusate sodium 100 mg capsule 100 mg PO BID niacin 500 mg capsule, extended release 500 mg PO HS polyethylene glycol 3350 [Miralax] 17 gram/dose powder 17 g PO DAILY Follow-up/Referrals: Kamlesh,Robert Shetty MD [Primary Care Provider] - 3 Days Time of Disposition: 19:04
--- NOTE | 2024-06-03 19:24 | PC.NURSE ---
attempted to call report to Erika Mendoza without answer.
--- NOTE | 2024-06-03 22:21 | PC.NURSE ---
EMS arrives for patient
--- NOTE | 2024-07-12 13:38 | PC.NURSE ---
LATE ENTRY This note is being entered to document information to the patient's record. The following information was omitted on [06/03/24], by [Patricia Godinez RN]. V/O for insertion of Valdez cath for urinary retention. Valdez inserted per Patricia Godinez RN
== END 2024-06-03 22:30 ==
PROVIDERS: Emergency Provider Preventive Medicine Aerospace Medicine; PCP Internal Medicine
DX: Z45.2 Encounter for adjustment and management of vascular access device (principal); N39.0 Urinary tract infection, site not specified; R33.9 Retention of urine, unspecified; A41.02 Sepsis due to Methicillin resistant Staphylococcus aureus; I25.10 Atherosclerotic heart disease of native coronary artery without angina pectoris; I35.9 Nonrheumatic aortic valve disorder, unspecified; I10 Essential (primary) hypertension; Z95.1 Presence of aortocoronary bypass graft; Z87.891 Personal history of nicotine dependence; Z79.01 Long term (current) use of anticoagulants; Z79.899 Other long term (current) drug therapy; Z79.82 Long term (current) use of aspirin
CPT/HCPCS: 36415; 36569; 51702; 80053; 81001; 85025; 87086; 99283; C1751

== ENCOUNTER 2024-06-12 15:04 | Emergency (ER) | payer MEDICARE, SELFPAY ==
[2024-06-12] VITALS (11 sets, daily range): BP systolic 110–130; BP diastolic 61–75; PULSE 60–66; RESP 13–22; TEMP 36.8; O2SAT 98–100
--- NOTE | 2024-06-12 15:31 | PC.NURSE ---
pt arrives with 16Fr 2-way urinary catheter in place. no stat-lock stabilization device present. prepped skin and applied stat-lock.
[2024-06-12 15:36] LABS: Basophils Percent Auto 0.4 % (0.2-1.2); Eosinophils Absolute Auto 0.1 K/mm3 (0-0.3); Eosinophils Percent Auto 2.5 % (0-4.4); Hemoglobin 8.7 g/dL (14.0-18.0); Immature Granulocyte Absolute 0.05 K/mm3 (0.00-0.031); Immature Granulocyte Percent A 0.9 % (0-0.5); Immature Platelet Fraction Pct 4.5 % (0.9-11.2); Lymphocytes Absolute Auto 1.09 K/mm3 (0.9-3.2); Lymphocytes Percent Auto 19.3 % (18.3-44.2); Mean Corpuscular HGB Conc 31.1 g/dl (32-36); Mean Platelet Volume 11.7 fl (7.4-10.4); Monocytes Absolute Auto 0.7 K/mm3 (0.1-0.6); Monocytes Percent Auto 11.5 % (2.6-8.5); Neutrophils Absolute Auto 3.7 K/mm3 (1.3-6.7); Neutrophils Percent Auto 65.4 % (45.5-73.1); Platelet Count Result 120 k/mm3 (150-375); Red Blood Count 3.22 M/mm3 (4.6-6.20); Red Cell Distribution Width 16.4 % (11.5-14.5); White Blood Count 5.6 K/mm3 (4.5-10.0)
[2024-06-12 15:42] LABS: Alanine Aminotransferase 14 U/L (6-50); Alkaline Phosphatase 79 U/L (38-126); Anion Gap 7 mmol/L (4-12); Aspartate Amino Transferase 28 U/L (17-59); Bilirubin,Total 0.5 mg/dL (0.2-1.3); Blood Urea Nitrogen 20 mg/dL (9-20); Calcium 8.4 mg/dL (8.4-10.2); Carbon Dioxide 23 mmol/L (22-30); Chloride 109 mmol/L (98-107); Estimated CRCL calculation 45 ml/min; Estimated Glomerular Filt Rate > 60; Glucose 129 mg/dL (65-110); Potassium 4.4 mmol/L (3.4-5.0); Sodium 139 mmol/L (137-145)
--- NOTE | 2024-06-12 16:26 | ED_ITS ---
HPI - General Adult General Chief complaint: Recheck/Abnormal Lab/Rx Stated complaint: low blood count Time Seen by Provider: 06/12/24 15:49 History of Present Illness HPI narrative: This is an 83-year-old male sent from the longterm for ?low blood counts. ?No paperwork was sent from the longterm. We called and they said they are unsure but they think his ?RBCs were low.? Patient has no complaints this time. Patient is currently being treated for MRSA bacteremia via PICC line. Related Data Home Medications ?Medication ?Instructions ?Recorded ?Confirmed ?Last Taken ?Type apixaban 5 mg tablet (Eliquis) 5 mg PO BID 02/20/24 05/04/24 05/03/24 History atorvastatin 20 mg tablet 20 mg PO DAILY 02/20/24 05/04/24 05/03/24 History donepezil 5 mg tablet 5 mg PO QHS 02/20/24 05/04/24 05/03/24 History metoprolol tartrate 25 mg tablet 25 mg PO QAM 02/20/24 05/04/24 05/03/24 History acetaminophen 500 mg capsule 500 mg PO Q6H PRN pain 05/04/24 05/04/24 Unknown History aspirin 81 mg tablet,delayed 81 mg PO DAILY 05/04/24 05/04/24 05/03/24 History release (Adult Aspirin Regimen) docusate sodium 100 mg capsule 100 mg PO BID 05/04/24 05/04/24 05/03/24 History niacin 500 mg capsule,extended 500 mg PO HS 05/04/24 05/04/24 05/03/24 History release polyethylene glycol 3350 17 17 g PO DAILY 05/04/24 05/04/24 Unknown History gram/dose oral powder (Miralax) Allergies Allergy/AdvReac Type Severity Reaction Status Date / Time No Known Allergies Allergy Verified 06/03/24 12:22 [facility] Past Medical History Medical History Pacemaker Aortic valve disease s/p AVR and aortic root replacement CAD (coronary artery disease) CABG 1999 Essential (primary) hypertension Family History Family History Sibling Malignant neoplasm of prostate Mother Family history of heart disease in male family member before age 55 Father Family history of heart disease in male family member before age 55 Social History Social History Smoking status: Former smoker Tobacco type: cigarettes Alcohol intake: never Substance use: never Do You Feel Safe in your Home?: Yes Lack of Transportation: No Lack of Food: Never True Current Housing: I Have Housing Concerned About Future Housing: No Difficulty Paying Gas/Electric Bills: No Difficulty Paying for Meds: No Currently Unemployed: No Education: High School Diploma/GED Difficulty w/ Childcare or Family Care: No Spiritual care concerns: No Exam 2 Narrative: APPEARANCE: No apparent distress. A&O x3 Head: atraumatic. EYES: EOMI, NOSE: Atraumatic NECK: Trachea midline RESPIRATORY: No increased rate of breathing CTAB CARDIOVASCULAR: RRR, ABDOMINAL: Non-distendedsoft nontender MUSCULOSKELETAl: No obvious deformities NEURO: Alert. Moving 4/4 extremities SKIN:: Warm, dry. Normal color PSYCHIATRIC: Normal affect Course Vital Signs Vital signs: Vital Signs Temperature 98.2 F 06/12/24 15:04 Pulse Rate 60 06/12/24 15:04 Respiratory Rate 22 H 06/12/24 15:04 Blood Pressure 120/61 06/12/24 15:04 Pulse Oximetry 100 06/12/24 15:04 Oxygen Delivery Room Air 06/12/24 15:04 Temperature 98.2 F 06/12/24 15:04 Pulse Rate 60 06/12/24 15:04 Respiratory Rate 13 06/12/24 15:12 Blood Pressure 120/61 06/12/24 15:04 Pulse Oximetry 100 06/12/24 15:12 Oxygen Delivery Room Air 06/12/24 15:04 Medical Decision Making [facility] Narrative Medical decision making narrative: -Course: 83-year-old male sent in for low blood counts. Hemoglobin here is 8.7 which is consistent with previous values. No other laboratory abnormalities. retirement was contacted and they cannot tell us why he was sent here. Patient be discharged back to longterm. Vital Signs Vital Signs: Vital Signs Temperature 98.2 F 06/12/24 15:04 Pulse Rate 60 06/12/24 15:04 Respiratory Rate 22 H 06/12/24 15:04 Blood Pressure 120/61 06/12/24 15:04 Pulse Oximetry 100 06/12/24 15:04 Oxygen Delivery Room Air 06/12/24 15:04 Temperature 98.2 F 06/12/24 15:04 Pulse Rate 60 06/12/24 15:04 Respiratory Rate 13 06/12/24 15:12 Blood Pressure 120/61 06/12/24 15:04 Pulse Oximetry 100 06/12/24 15:12 Oxygen Delivery Room Air 06/12/24 15:04 Lab Data 06/12/24 15:18 06/12/24 15:18 Labs: Lab Results 06/12/24 Range/Units 15:18 WBC 5.6 (4.5-10.0) K/mm3 RBC 3.22 L (4.6-6.20) M/mm3 Hgb 8.7 L (14.0-18.0) g/dL Hct 28.0 L (42.0-52.0) % MCV 87.0 (80-100) fl MCH 27.0 (26-34) pg MCHC 31.1 L (32-36) g/dl RDW 16.4 H (11.5-14.5) % Plt Count 120 L (150-375) k/mm3 MPV 11.7 H (7.4-10.4) fl Immature Gran % (Auto) 0.9 H (0-0.5) % Neut % (Auto) 65.4 (45.5-73.1) % Lymph % (Auto) 19.3 (18.3-44.2) % [place] % (Auto) 11.5 H (2.6-8.5) % Eos % (Auto) 2.5 (0-4.4) % Baso % (Auto) 0.4 (0.2-1.2) % Lymph # (Auto) 1.09 (0.9-3.2) K/mm3 [place] # (Auto) 0.7 H (0.1-0.6) K/mm3 Eos # (Auto) 0.1 (0-0.3) K/mm3 Baso # (Auto) 0.0 (0.0-0.1) K/mm3 Abs Immat Gran (auto) 0.05 H (0.00-0.031) K/mm3 Absolute Neuts (auto) 3.7 (1.3-6.7) K/mm3 Absolute Nucleated RBC 0.000 (0.0-0.012) K/mm3 Nucleated RBC % 0.0 (0.0-0.2) % % Immature Plt Fraction 4.5 (0.9-11.2) % Sodium 139 (137-145) mmol/L Potassium 4.4 (3.4-5.0) mmol/L Chloride 109 H (98-107) mmol/L Carbon Dioxide 23 (22-30) mmol/L Anion Gap 7 (4-12) mmol/L BUN 20 (9-20) mg/dL Creatinine 1.02 (0.7-1.3) mg/dL Estim Creat Clear Calc 45 ml/min Estimated GFR > 60 (59 - ) Glucose 129 H (65-110) mg/dL Calcium 8.4 (8.4-10.2) mg/dL Total Bilirubin 0.5 (0.2-1.3) mg/dL AST 28 (17-59) U/L ALT 14 (6-50) U/L Alkaline Phosphatase 79 (38-126) U/L Total Protein 7.0 (6.3-8.2) g/dL Albumin 3.0 L (3.5-5.1) g/dL Discharge Plan Discharge Clinical Impression: Anemia Patient Disposition: Left Against Medical Advice Condition: Stable Instructions: Anemia (ED) Additional Instructions: Mr. Garner was seen in the ER for abnormal blood counts. His hemoglobin today is 8.7. We do not typically transfused unless the hemoglobin is less than 7.0. Patient can return to the ED if he develops any other symptoms. Patient Language: Bulgarian Prescriptions: No Action atorvastatin 20 mg tablet 20 mg PO DAILY donepezil 5 mg tablet 5 mg PO QHS metoprolol tartrate 25 mg Tablet 25 mg PO QAM Eliquis 5 mg tablet 5 mg PO BID aspirin [Adult Aspirin Regimen] 81 mg tablet,delayed release (DR/EC) 81 mg PO DAILY acetaminophen 500 mg capsule 500 mg PO Q6H PRN (Reason: pain) docusate sodium 100 mg capsule 100 mg PO BID niacin 500 mg capsule, extended release 500 mg PO HS polyethylene glycol 3350 [Miralax] 17 gram/dose powder 17 g PO DAILY Follow-up/Referrals: Kamlesh,Robert Shetty MD [Primary Care Provider] -
--- OUTSIDE RECORDS SUMMARY | 2024-06-12 16:38 | XMS_ITS | Referral Summary ---
Author Organization [facility] Address [address] [place] [address] Care Team Providers Care Orthopedic Technician Name Role Phone Brannon Nina MD Unavailable Robert Whitlock MD Primary Care Provider Encounters Date Type Department Care Team Description 06/05/2024 Orders Only [facility] [address] [facility] [facility] [address] [place] [address] Scanning, Provider 06/02/2024 Documentation [facility] Infectious Diseases [address] [place] [phone] Kristina Rehman NP Facility needing abx adjustment 06/01/2024 Telephone [facility] Infectious Diseases [address] [place] [phone] Amy Jiang, FADI 05/31/2024 3:59 PM MUSIC ASSISTANT - 05/31/2024 11:59 PM MUSIC ASSISTANT Hospital Encounter [facility] [address] [place] [address] Emergency, Room R Discharge Disposition: Discharge to home or self care 05/13/2024 2:48 AM MUSIC ASSISTANT - 05/31/2024 3:19 PM MUSIC ASSISTANT Hospital Encounter [facility] [address] [place] [phone] Tashi Thurston MD Geltman, Edward M., MD Stitziel, Tashi Moran MD PhD [facility], Susana Godoy, MD Yeung, MD Angela Roe, Henok Crane MD Discharge Disposition: Discharge to [facility] 05/19/2024 Documentation [facility] Infectious Diseases [address] [place] [address] Bradley Quintero MD 05/12/2024 Documentation Internal Medicine Tashi Thurston MD Transfer Acceptance 05/12/2024 Orders Only [facility] [id number] [place] [address] Robert Whitlock MD 05/11/2024 Orders Only [facility] Cardiology [address] [address] [address] [place] [address] Deepti Whaley MD 05/08/2024 Telephone [facility] [address] [phone] Robert Whitlock MD 05/06/2024 Orders Only [facility] [address] [phone] Robert Whitlock MD 05/05/2024 Orders Only [facility] [address] [phone] Robert Whitlock MD 05/04/2024 Orders Only [facility] [address] [address] Robert Whitlock MD 05/01/2024 Telephone [facility] [address] [phone] Robert Whitlock MD 05/01/2024 Telephone [facility] [address] [phone] Robert Whitlock MD [facility] 04/28/2024 10:40 AM MUSIC ASSISTANT Office Visit [facility] Infectious Diseases [address] [place] [address] Rosa Strong NP 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 (Primary Dx) 04/18/2024 11:00 AM MUSIC ASSISTANT Ancillary Procedure [facility] Cardiology [address] [facility] [address] [place] [address] Bradycardia (Primary Dx); Fitting or adjustment of cardiac pacemaker; Paroxysmal atrial fibrillation (CMS/HCC) (HCC); Sinus node dysfunction (CMS/HCC) (HCC) 02/29/2024 4:15 AM CDT - 04/05/2024 5:15 PM MUSIC ASSISTANT Hospital Encounter [address] [phone] Rhiannon Powell MD Heath, MD Juni Hogue, Shane Ferguson MD Bloodstream infection associated with cardiovascular device, subsequent encounter (Primary Dx); Sinus node dysfunction (CMS/HCC) (HCC); Atrial fibrillation (CMS/HCC) (HCC) [I48.91]; CAD (coronary artery disease); Atrial fibrillation (CMS/HCC) (HCC); Complete heart block (CMS/HCC) (HCC) [I44.2]; Bradycardia; Preoperative testing; 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 Discharge Disposition: Discharge to [facility] 03/30/2024 Orders Only [facility] Radiology [address] [place] [address] May Lambert, CHRIS 03/30/2024 Orders Only [facility] Cardiology [address] [facility] 8[address] [place] [address] [place] [address] Kelsie Guillen NP Fitting or adjustment of cardiac pacemaker (Primary Dx) 03/30/2024 7:30 AM MUSIC ASSISTANT - 03/30/2024 10:25 AM MUSIC ASSISTANT Surgery [facility] Electrophysiology Lab [address] [place] [phone] Jayro Phan MD PhD IMPLANT DUAL CHAMBER PPM SYSTEM W/ DUAL ELECTRODES (GEN AND LEADS, NEW OR REPLACE) [id number] 03/30/2024 7:43 AM MUSIC ASSISTANT Anesthesia Event [facility] Electrophysiology Lab [address] [place] [address] Chen Lainez MD Wiethuchter, Kelli P., NP 03/20/2024 1:00 PM MUSIC ASSISTANT - 03/20/2024 3:00 PM MUSIC ASSISTANT Surgery [facility] Electrophysiology Lab [address] [place] [address] Franklyn Worthington MD INSERT TEMPORARY PACEMAKER (PPM) SINGLE LEAD [id number] [address] Temp perm IJ 03/17/2024 1:09 PM CDT Anesthesia Event [facility] [address] [place] [address] Little Mcgovern MD Bergesch, Christine Elizabeth, CRNA 03/14/2024 Documentation [facility] Infectious Diseases [address] [place] [phone] Rahel Dubon, SAVANNAH OPAT from Last 3 Months Allergies No known active allergies Medications miconazole (SECURA THICK) 2 % cream Apply topically 2 (two) times a day 04/04/20 24 Active apixaban (Eliquis) 5 mg tablet Take 1 tablet (5 mg total) by mouth 2 (two) times a day 04/05/20 24 Active niacin ER 500 mg CR capsuleIndication s:hypertriglyceri demia Take 1 capsule (500 mg total) by mouth nightly 04/05/20 24 Active metoprolol XL (TOPROL-XL) 25 mg extended release tablet Take 1 tablet (25 mg total) by mouth daily 04/05/20 24 025 Active acetaminophen (TYLENOL) 500 mg tabletIndications :Fever,Pain Take 1 tablet (500 mg total) by mouth every 6 (six) hours as needed for pain 04/05/20 24 Active aspirin 81 mg chewable tablet Take 1 tablet (81 mg total) by mouth daily 04/05/20 24 025 Active docusate sodium (COLACE) 100 mg capsuleIndication s:constipation Take 1 capsule (100 mg total) by mouth 2 (two) times a day 04/05/20 Active polyethylene glycol (MIRALAX) 17 gram/dose bulk powderIndications :constipation Take 17 g by mouth daily 04/05/20 24 Active donepeziL (ARICEPT) 5 mg tablet TAKE 1 TABLET BY MOUTH AT NIGHT 90 tablet 3 04/10/20 24 Active ascorbic acid (ascorbic acid with tio hips) 500 mg tablet,chewable Take 1 tablet/chew tab (500 mg total) by mouth daily Active bisacodyL (DULCOLAX) 10 mg suppositoryIndica tions:constipatio n Insert 1 suppository (10 mg total) into the rectum daily Active naloxone (NARCAN) 4 mg/actuation spray,non-aerosol 1 spray Call 911. Administer a single spray in one nostril. Repeat every 3 minutes as needed if no or minimal response. Active amino acids/protein hydrolys (PRO-STAT MAX ORAL) Take by mouth Active cholecalciferol (VITAMIN D-3) 5,000 unit tablet Ac tive atorvastatin (LIPITOR) 80 mg tablet Take 1 tablet (80 mg total) by mouth daily 30 tablet 06/01/19 026 Active ceftaroline 600 mg in sodium chloride 0.9% 0.9% 35 mL IVPBIndications:B lood Stream/Endovascul ar Infection Infuse 600 mg into a venous catheter every 12 (twelve) hours 05/31/19 25 Active mirtazapine (REMERON JALEN-TAB) 15 mg disintegrating tablet Take 1 tablet (15 mg total) by mouth nightly 05/31/19 25 025 Active DAPTOmycin (CUBICIN) 50 mg/mL injectionIndicati ons:Blood Stream/Endovascul ar Infection Infuse 14 mL (700 mg total) into a venous catheter daily 06/01/19 25 Active DAPTOmycin (CUBICIN) 50 mg/mL injectionIndicati ons:Blood Stream/Endovascul ar Infection Infuse 13.6 mL (680 mg total) into a venous catheter daily Recommendation to get thru 04/1604/05/20 24 025 Disconti nued(Sto p Taking at Discharg e) atorvastatin (LIPITOR) 20 mg tablet Take 1 tablet (20 mg total) by mouth daily 04/05/20 24 025 Disconti nued(Sto p Taking at Discharg e) magnesium citrate solution Take by mouth once 025 Disconti nued(Sto p Taking at Discharg e) ferrous sulfate 325 mg (65 mg of elemental iron) tabletIndications :Iron Deficiency Anemia Take 1 tablet (65 mg of elemental iron total) by mouth 3 (three) times a day with meals 025 Disconti nued(Sto p Taking at Discharg e) Active Problems Problem Noted Date Diagnosed Date Severe malnutrition 05/31/2024 Thrombocytopenia 05/30/2024 Assessment & Plan (05/31/2024 11:40 AM MUSIC ASSISTANT): Thrombocytopenia developing from 05/26 onwards to 05/29 with luis plt to 98. No prior thrombocytopenia during admission. Overall, very low concern for HIT. Potentially secondary to ceftaroline. -plt 98 --> 109 -discussion with ID, suspect likely in setting of ceftaroline but can continue ceftaroline for now with plan for outpatient CBC monitoring -ok to continue apixaban BID CAD (coronary artery disease) 05/28/2024 Assessment & Plan (05/28/2024 2:22 AM MUSIC ASSISTANT): s/p CABG 2009 (3V GOLDMAN-LAD, SVG-OM, SVG-RCA) Aspirin was discontinued during admission , continue atorvastatin AF (atrial fibrillation) ([facility]) 05/28/2024 Assessment & Plan (05/28/2024 2:22 AM MUSIC ASSISTANT): apixaban, metop 25 Dementia 05/28/2024 Assessment & Plan (05/29/2024 2:09 PM MUSIC ASSISTANT): baseline status unclear, A&O x 3 on exam. Nursing reports that he is intermittently forgetful of where he is and why. - Home donepezil Irritation of skin of perianal region 05/28/2024 Assessment & Plan (05/28/2024 1:42 PM MUSIC ASSISTANT): Wound care consulted regarding breakdown to latonia-anal area/posterior scrotum/groin areas. Skin denuded in areas, very tender to touch. Latonia-anal area mirror images when buttock closed. Erythematous with satellite lesion extending into groin and scrotal area. Pictures in media tab - wound care as per wound care team recs: cleanse with skin cleanser. Apply a thin application of Antifungal Extra thick to all affected areas. Apply BID and PRN. Heart block 05/28/2024 Assessment & Plan (05/28/2024 1:52 PM MUSIC ASSISTANT): S/p ppm - tele Bacteremia 05/13/2024 Overview (05/24/2024): Mr Vo is an 83 year old gentleman with a history of dementia, aortic regurgitation status-post bioAVR (2009), sick sinus syndrome and AV block requiring PPM with dependency, who was recently admitted for MRSA bacteremia (02/28-03/16) due to PPM lead infection status-post explanation (03/07) and later re-implantation (03/30) followed by combined daptomycin and ceftaroline treatment (03/17-04/28). He initially presented this admission to [facility] with fevers and was found to have recurrent MRSA bacteremia due to presumed device infection, transferred here (05/13) for higher level of care. Additional workup with TTE (05/16) and PET/CT (05/18) without obvious evidence of cardiac vegetation. 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 Will plan for extended course of IV antibiotics followed by lifelong oral suppression. Assessment & Plan (05/30/2024 1:37 PM MUSIC ASSISTANT): - Blood culture negative since 05/14. - TTE negative for vegetations. - PET CT: Multifocal areas of consolidation throughout the bilateral lungs in a predominantly dependent distribution with associated moderate to marked FDG uptake, new from 03/03/2024 and favored to represent multifocal pneumonia possibly related to aspiration. moderate FDG uptake in the right posterior peripheral zone of the apical prostate, of uncertain etiology. Large gallstone measuring up to 3.3 cm in size without evidence of acute cholecystitis. No clear spurce of recurrent MRSA identified. Device deemed ok to remain in place ID consulted: Six week course of daptomycin and ceftaroline (05/14/25-06/24/2024) followed by chronic lifelong suppression with doxycycline 100 mg bid Given c/f thrombocytopenia, continue to monitor plt count, may need change from ceftaroline to alternative 2nd agent if worsens Given that the patient is not an OPAT candidate due to his concurrent dementia, he need to be discharge to facility to complete antibiotic therapy; SNF planning underway Assessment & Plan (05/30/2024 1:29 PM MUSIC ASSISTANT): - Continue IV daptomycin 10 mg/kg every 24 hours - Continue IV ceftaroline 600mg q12h for CrCl 31-50. (400mg q12h if CrCl 15-31) - Would check cbc tonight to trend platelet count, if continues to drop, may need to consider stopping ceftaroline and monitoring response. - Continue IV antibiotic treatment for total of six weeks (05/14-06/24) followed by lifelong suppression with doxycycline 100mg BID - Patient is not an OPAT candidate due to his concurrent dementia and will need to discharge to facility to complete antibiotic therapy; SNF planning underway - Weekly CBC with diff + CMP while on IV abx, CK q72h while on daptomycin and statin Hyperkalemia 03/18/2024 Assessment & Plan (03/18/2024 1:15 PM CDT): -K 5-5.3 since 03/16 -Cr up trending slightly to 1.25 -No ECG changes -Recheck BMP and whole blood K today at 1400 -BMP daily -Avoid nephrotoxins, renally dose meds as appropriate -Avoid hypotension -Monitor UOP MRSA bacteremia and infectiv e endocarditis with CIED infection 03/13/2024 Assessment & Plan (04/30/2024 5:19 PM MUSIC ASSISTANT): Suspected portal of entry was presumed to be from skin boil that Vita (patient 's partner) confirmed he had days prior to fevers prior to admission, underwent PPM device and lead extraction 03/07/24 with persistent bloodstream infection 02/29/24 - 03/16/24. Repeat JOSEPH 03/17/24 confirmed vegetation on temporary pacemaker lead, Left IJ temporary pacer removed 03/20/24 and replaced on RIJ 03/20/24, blood culture clearance 03/17/24. Had two weeks PPM holiday before re-implanting device 03/30/24. Initially on Vancomycin at OSH for approximately 8 days CHEMICAL ENGINEERING INTERN 02/29/24. Planned six week course IV Daptomycin 700 mg Q 24 and Ceftaroline 600 mg Q12 for complicated MRSA bacteremia (EOT 04/28/24). - facility has not sent labs after multiple requests, awaiting labs for review. - discontinue IV Dapto and Ceftaroline today 04/28/24. - facility to arrange Right CVC removal. Assessment & Plan (04/05/2024 9:10 AM MUSIC ASSISTANT): Recently presented to [facility] with fevers and altered mental status. 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 The patient was instructed to come to [facility]. [facility] PPM implanted 02/16/2022. 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, s/p device extracted by CTS on 03/07 -Blood cultures positive for MRSA -Persistently positive blood cultures with concern for aortic valve involvement -JOSEPH 03/17 with vegetation noted on temporary pacer wire -Left IJ temporary pacer removed and replaced on [facility] on 03/20 -S/p left-sided pacemaker placement on 03/30 -Left chest incision stable with steri strips intact -ID following -Continue Daptomycin 700mg daily and Ceftaroline 600mg Q12 hours -Anticipate 6 week ABX course (until at least 04/28/24) -CBC, CMP, and CK once weekly while on IV daptomycin and ceftaroline -Right DL Titi placed on 03/30 -He is not a candidate for home OPAT given memory loss, would benefit from IV antibiotics in a supervised facility such as SNF --> referrals made; awaiting to hear approval from [facility]>>[facility] is waiting on arrival of Ceftaroline to facility -shelter case manager making plan with [facility] for possible discharge tomorrow Assessment & Plan (04/02/2024 12:51 PM MUSIC ASSISTANT): Recently presented to [facility] with fevers and altered mental status. 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 The patient was instructed to come to [facility]. [facility] PPM implanted 02/16/2022. 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, s/p device extracted by CTS on 03/07 -Blood cultures positive for MRSA -Persistently positive blood cultures with concern for aortic valve involvement -JOSEPH 03/17 with vegetation noted on temporary pacer wire -Left IJ temporary pacer removed and replaced on RIJ on 03/20 -S/p left-sided pacemaker placement on 03/30 -Left chest incision stable with steri strips intact -ID following -Continue Daptomycin 700mg daily and Ceftaroline 600mg Q12 hours -Anticipate 6 week ABX course (until at least 04/28/24) -CBC, CMP, and CK once weekly while on IV daptomycin and ceftaroline -Right DL Titi placed on 03/30 -He is not a candidate for home OPAT given memory loss, would benefit from IV antibiotics in a supervised facility such as [facility] --> referrals made; awaiting to hear approval from [facility] Assessment & Plan (04/01/2024 2:56 PM MUSIC ASSISTANT): Recently presented to [facility] with fevers and altered mental status. 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 The patient was instructed to come to [facility]. [facility] PPM implanted 02/16/2022. 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, s/p device extracted by CTS on 03/07 -Blood cultures positive for MRSA -Persistently positive blood cultures with concern for aortic valve involvement -JOSEPH 03/17 with vegetation noted on temporary pacer wire -Left IJ temporary pacer removed 03/20 and replaced on RIJ on 03/20 -S/p left-sided pacemaker placement on 03/30 -Left chest incision stable with steri strips intact -ID following -Continue Daptomycin 700mg daily and Ceftaroline 600mg Q12 -Anticipate 6 week ABX course (until at least 04/28/24) -CBC, CMP, and CK once weekly while on IV daptomycin and ceftaroline -Right DL Titi placed on 03/30 -He is not a candidate for home OPAT given memory loss, would benefit from IV antibiotics in a supervised facility such as [facility] --> referrals made; awaiting to hear approval from [facility] Assessment & Plan (03/31/2024 9:42 AM MUSIC ASSISTANT): Recently presented to [facility] with fevers and altered mental status. 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 The patient was instructed to come to [facility]. [facility] PPM implanted 02/16/2022. 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, s/p device extracted by CTS on 03/07 -Blood cultures positive for MRSA -Persistently positive blood cultures with concern for aortic valve involvement -JOSEPH 03/17 with vegetation noted on temporary pacer wire -Temporary pacer removed 03/20 and replaced on RIJ -ID prefers Dapto, but if cost prohibitive can use Ceftaroline -Current regimen is Daptomycin 700mg daily and Ceftaroline 600mg Q12h -Anticipate earliest placement of permanent pacemaker on 03/30/24 --> scheduled for 03/30 -Anticipate 6 week course of IV daptomycin and ceftaroline until at least 04/28/24 -CBC, CMP, and CK once weekly while on IV daptomycin and ceftaroline -Titi placed 03/30 -He is not a candidate for home OPAT given memory loss, would benefit from IV antibiotics in a supervised facility such as [facility] --> referrals made; awaiting to hear approval from [facility] Assessment & Plan (03/30/2024 3:31 PM MUSIC ASSISTANT): Recently presented to [facility] with fevers and altered mental status. 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 The patient was instructed to come to [facility]. [facility] PPM implanted 02/16/2022. 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, s/p device extracted by CTS on 03/07 -Blood cultures positive for MRSA -Persistently positive blood cultures with concern for aortic valve involvement -JOSEPH 03/17 with vegetation noted on temporary pacer wire -Temporary pacer removed 03/20 and replaced on RIJ -ID prefers Dapto, but if cost prohibitive can use Ceftaroline -Current regimen is Daptomycin 700mg daily and Ceftaroline 600mg Q12h -Anticipate earliest placement of permanent pacemaker on 03/30/24 --> scheduled for 03/30 -Anticipate 6 week course of IV daptomycin and ceftaroline until at least 04/28/24 -CBC, CMP, and CK once weekly while on IV daptomycin and ceftaroline -Will need line placement for out of hospital infusion of antibiotics --> consult IR following PPM placement -He is not a candidate for home OPAT given memory loss, would benefit from IV antibiotics in a supervised facility such as SNF --> referrals made Assessment & Plan (03/29/2024 10:35 AM MUSIC ASSISTANT): Recently presented to [facility] with fevers and altered mental status. 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 The patient was instructed to come to [facility]. [facility] PPM implanted 02/16/2022. 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, s/p device extracted by CTS on 03/07 -Blood cultures positive for MRSA -Persistently positive blood cultures with concern for aortic valve involvement -JOSEPH 03/17 with vegetation noted on temporary pacer wire -Temporary pacer removed 03/20 and replaced on RIJ -ID prefers Dapto, but if cost prohibitive can use Ceftaroline -Anticipate earliest placement of permanent pacemaker on 03/30/24-scheduled for 03/30 -Anticipate 6 week course of IV daptomycin and ceftaroline from 03/17/24 - 04/27/24 -CBC, CMP and CK once weekly while on IV daptomycin and ceftaroline -will need line placement for out of hospital infusion of antibiotics -per case management pt is refusing placement but has referral for home infusion in place Assessment & Plan (03/26/2024 3:54 PM MUSIC ASSISTANT): Recently presented to [facility] with fevers and altered mental status. 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 The patient was instructed to come to [facility]. [facility] PPM implanted 02/16/2022. 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, s/p device extracted by CTS on 03/07 -Blood cultures positive for MRSA -Persistently positive blood cultures with concern for aortic valve involvement -JOSEPH 03/17 with vegetation noted on temporary pacer wire -Temporary pacer removed 03/20 and replaced on NM -Will discuss PICC timing with ID -Pt is not a candidate for home IV ABX due to safety concerns; will need placement -ID prefers Dapto, but if cost prohibitive can use Ceftaroline -Anticipate earliest placement of permanent pacemaker on 03/30/24-scheduled for 03/30 -Anticipate 6 week course of IV daptomycin and ceftaroline from 03/17/24 - 04/27/24 -CBC, CMP and CK once weekly while on IV daptomycin and ceftaroline Assessment & Plan (03/25/2024 2:27 PM MUSIC ASSISTANT): Recently presented to [facility] with fevers and altered mental status. 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 The patient was instructed to come to [facility]. [facility] PPM implanted 02/16/2022. 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, s/p device extracted by CTS on 03/07 -Blood cultures positive for MRSA -Persistently positive blood cultures with concern for aortic valve involvement -JOSEPH 03/17 with vegetation noted on temporary pacer wire -Temporary pacer removed 03/20 and replaced on RIJ -Will discuss PICC timing with ID -Pt is not a candidate for home IV ABX due to safety concerns; will need placement -ID prefers Dapto, but if cost prohibitive can use Ceftaroline -Anticipate earliest placement of permanent pacemaker on 03/30/24-scheduled for 03/30 -Anticipate 6 week course of IV daptomycin and ceftaroline from 03/17/24 - 04/27/24 -CBC, CMP and CK once weekly while on IV daptomycin and ceftaroline Assessment & Plan (03/24/2024 8:46 AM MUSIC ASSISTANT): Recently presented to [facility] with fevers and altered mental status. 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 The patient was instructed to come to [facility]. [facility] PPM implanted 02/16/2022. 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, s/p device extracted by CTS on 03/07 -Blood cultures positive for MRSA -Persistently positive blood cultures with concern for aortic valve involvement -JOSEPH 03/17 with vegetation noted on temp PM wire -Temp pacer removed 03/20 and replaced on RIJ -Will discuss PICC timing with ID -Pt is not a candidate for home IV ABX due to safety concerns; will need placement -ID prefers Dapto, but if cost prohibitive can use Ceftaroline -Anticipate earliest placement of permanent pacemaker on 03/30/24--scheduled for 03/30 -Anticipate 6 week course of IV daptomycin and ceftaroline from 03/17/24 - 04/27/24 -CBC, CMP and CK once weekly while on IV daptomycin and ceftaroline Assessment & Plan (03/23/2024 2:08 PM MUSIC ASSISTANT): Recently presented to [facility] with fevers and altered mental status. 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 The patient was instructed to come to [facility]. [facility] PPM implanted 02/16/2022. 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, s/p device extracted by CTS on 03/07 -Blood cultures positive for MRSA -Persistently positive blood cultures with concern for aortic valve involvement -JOSEPH 03/17 with vegetation noted on temp PM wire -Temp pacer removed 03/20 and replaced on RIJ -Will discuss PICC timing with ID -Pt is not a candidate for home IV ABX due to safety concerns; will need placement -ID prefers Dapto, but if cost prohibitive can use Ceftaroline -Anticipate earliest placement of permanent pacemaker on 03/30/24--scheduled for 03/30 -Anticipate 6 week course of IV daptomycin and ceftaroline from 03/17/24 - 04/27/24 -CBC, CMP and CK once weekly while on IV daptomycin and ceftaroline Assessment & Plan (03/22/2024 12:57 PM MUSIC ASSISTANT): Recently presented to [facility] with fevers and altered mental status. 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 The patient was instructed to come to [facility]. [facility] PPM implanted 02/16/2022. 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, s/p device extracted by CTS on 03/07 -Blood cultures positive for MRSA -Persistently positive blood cultures with concern for aortic valve involvement -JOSEPH 03/17 with vegetation noted on temp PM wire -Temp pacer removed 03/20 and replaced on RIJ -Will discuss PICC timing with ID -Pt is not a candidate for home IV ABX due to safety concerns; will need placement -ID prefers Dapto, but if cost prohibitive can use Ceftaroline -Anticipate earliest placement of permanent pacemaker on 03/30/24 provided 03/17/24 cultures remain no growth -Anticipate 6 week course of IV daptomycin and ceftaroline from 03/17/24 - 04/27/24 -CBC, CMP and CK once weekly while on IV daptomycin and ceftaroline Assessment & Plan (03/21/2024 10:23 AM MUSIC ASSISTANT): Recently presented to [facility] with fevers and altered mental status. 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 The patient was instructed to come to [facility]. [facility] PPM implanted 02/16/2022. 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, s/p device extracted by CTS on 03/07 -Blood cultures positive for MRSA -Persistently positive blood cultures with concern for aortic valve involvement -JOSEPH 03/17 with vegetation noted on temp PM wire -Temp pacer removed 03/20 and replaced on -Will discuss PICC timing with ID -Pt is not a candidate for home IV ABX due to safety concerns; will need placement -ID prefers Dapto, but if cost prohibitive can use Ceftaroline -Anticipate earliest placement of permanent pacemaker on 03/30/24 provided 03/17/24 cultures remain no growth -Anticipate 6 week course of IV daptomycin and ceftaroline from 03/17/24 - 04/27/24 -CBC, CMP and CK once weekly while on IV daptomycin and ceftaroline Assessment & Plan (03/20/2024 11:31 AM MUSIC ASSISTANT): Recently presented to [facility] with fevers and altered mental status. 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 The patient was instructed to come to [facility]. [facility] PPM implanted 02/16/2022. 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 Plan for removal and replacement on 03/20. -Panorex with caries of right mandibular canine without periapical lucencies -Recommending 6 weeks of IV antibiotics from first negative blood culture -Given he has positive blood cultures again, the timing of pacer placement would be revised to 2 weeks from whenever he has first negative blood culture. -Will discuss PICC timing with ID -Pt is not a candidate for outpatient IV ABX due to safety concerns -ID prefers Dapto, but if cost prohibitive can use Ceftaroline -While on the IV antibiotics, please obtain at least a weekly CBC with diff, weekly CMP and TWICE weekly CPK -Hemodynamically stable, afebrile Assessment & Plan (03/19/2024 8:12 PM MUSIC ASSISTANT): Likely portal of entry skin, given description of boil provided by patients partner. CIED initially extracted on 03/07, but has still struggled to clear bacteremia, with intermittent skip phenomenon noted, but ultimately positive blood cultures from 02/28 - 03/16. Cultures not yet finalized, but appears to have cleared on 03/17/24. Currently on maximal medical therapy with IV daptomycin and ceftaroline. Repeat JOSEPH on 03/15 demonstrates a likely vegetation on the temporary pacer wire. Spoke with primary team, EP team planning on removal of temporary pacer on 03/20. As he is pacer dependent cannot have true holiday, however given blood cultures have recently cleared I anticipate this temporary pacer should have less likelihood of becoming infected. Would still recommend waiting at least 2 weeks after clearance of bacteremia on 03/17 prior to placing final PPM (earliest placement date of 03/30/24). Pt will need 6 weeks of antistaphylococcal therapy, would favor combination IV daptomycin and ceftaroline if he continues to tolerate it. He is not a candidate for home OPAT given memory loss, would benefit from IV antibiotics in a supervised facility such as SNF. Recommendations: - agree with removal of temporary pacer given lead vegetation - continue IV daptomycin and ceftaroline at current doses - anticipate earliest placement of permanent pacemaker on 03/30/24 provided 03/17/24 cultures remain no growth - anticipate 6 week course of IV daptomycin and ceftaroline from 03/17/24 - 04/27/24. Assessment & Plan (03/19/2024 1:23 PM MUSIC ASSISTANT): Recently presented to [facility] with fevers and altered mental status. 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 The patient was instructed to come to [facility]. [facility] PPM implanted 02/16/2022. 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 Plan for removal and replacement on 03/20 (NPO after midnight) -Blood cultures positive from 03/16; 03/17,03/18, 03/19 NGTD -Panorex with caries of right mandibular canine without periapical lucencies -Recommending 6 weeks of IV antibiotics from first negative blood culture -Given he has positive blood cultures again, the timing of pacer placement would be revised to 2 weeks from whenever he has first negative blood culture. -Will discuss PICC timing with ID -Pt is not a candidate for outpatient IV ABX due to safety concerns -ID prefers Dapto, but if cost prohibitive can use Ceftaroline -While on the IV antibiotics, please obtain at least a weekly CBC with diff, weekly CMP and TWICE weekly CPK -Hemodynamically stable, afebrile Assessment & Plan (03/18/2024 1:10 PM CDT): Recently presented to [facility] with fevers and altered mental status. 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 The patient was instructed to come to [facility]. [facility] PPM implanted 02/16/2022. 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 A long 1.8 cm linear multi-branching mobile mass is seen with a large basis attached to PM wire in the RA. The mass likely represents a vegetation in appropriate clinical context. Differential diagnosis is with fibrin strand. However, fibrin strands are usually less complex than the mass seen here. No vegetation on tricuspid, mitral and aortic valves (BioAVR?). Normal LV and RV size and function. No ASD. No LELO thrombus. Intimal thickening, no atheroma plaque. -Panorex with caries of right mandibular canine without periapical lucencies -Recommending 6 weeks of IV antibiotics from first negative blood culture -Given he has positive blood cultures again, the timing of pacer placement would be revised to 2 weeks from whenever he has first negative blood culture. -Will discuss PICC timing with ID -Pt is not a candidate for outpatient IV ABX due to safety concerns -ID prefers Dapto, but if cost prohibitive can use Ceftaroline -While on the IV antibiotics, please obtain at least a weekly CBC with diff, weekly CMP and TWICE weekly CPK -Hemodynamically stable, afebrile Assessment & Plan (03/17/2024 8:57 AM CDT): Recently presented to [facility] with fevers and altered mental status. 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 The patient was instructed to come to [facility]. [facility] PPM implanted 02/16/2022. 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 -Given he has positive blood cultures again, the timing of pacer placement would be revised to 2 weeks from whenever he has first negative blood culture. -Will discuss PICC timing with ID -Pt is not a candidate for outpatient IV ABX due to safety concerns -ID prefers Dapto, but if cost prohibitive can use Ceftaroline. -While on the IV antibiotics, please obtain at least a weekly cbc with diff, weekly CMP and TWICE weekly CPK -Hemodynamically stable, afebrile Assessment & Plan (03/16/2024 9:37 AM CDT): Recently presented to [facility] with fevers and altered mental status. 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 The patient was instructed to come to [facility]. [facility] PPM implanted 02/16/2022. 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 He will remain hospitalized until at least -Anticipating 6 weeks of IV antibiotics from first negative blood culture. So long as 03/11 cultures remain NGTD, anticipate an end date of 04/21 -Will discuss PICC timing with ID as he seems to have cleared since 03/11 -ID prefers Dapto, but if cost prohibitive can use Ceftaroline. Assessment & Plan (03/14/2024 12:10 PM CDT): Recently presented to [facility] with fevers and altered mental status. 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 The patient was instructed to come to [facility]. [facility] PPM implanted 02/16/2022. 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 He will remain hospitalized until at least -Anticipating 6 weeks of IV antibiotics from first negative blood culture. So long as 03/11 cultures remain NGTD, anticipate an end date of 04/21 -Will discuss PICC timing with ID as he seems to have cleared since 03/11 -ID prefers Dapto, but if cost prohibitive can use Ceftaroline. Assessment & Plan (03/13/2024 9:26 AM CDT): Recently presented to [facility] with fevers and altered mental status. 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 The patient was instructed to come to [facility]. [facility] PPM implanted 02/16/2022. 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 13mm ground glass nodule in the RUL that could be sequelae of infection or inflammation or adenocarcinoma spectrum lesion. Small b/l pleural effusions. -BCx 03/04: MRSA 3 of 3 -BCx 03/05: MRSA 1 of 2 -BCx 03/06: MRSA 2 of 2 -Temporary pacer placed by EP on 03/06 -BCx 03/07: MRSA 1 of 2 (multiple different colonies) -Device extraction by CTS on 03/07 -Intraoperative JOSEPH 03/07: mild MR and TR, no thrombus seen on leads, calcification seen on RCC of trileaflet aortic valve. -Pacer device 03/07: NGTD -A-lead 03/07: NGTD -V-lead 03/07: NGTD -CT Head 03/08: No acute intracranial abnormality -BCx 03/08: MRSA 2 of 2 (multiple different colonies) -Urine culture 03/08: NG -BCx 03/09: GPCs 2 of 2 -BCx 03/10: GPCs in 1 of 2 -BCx 03/11, 03/12 & 03/13 with NGTD -Hemodynamically stable, afebrile, no leukocytosis -Touched base with ID today regarding repeat imaging and how long they would recommend culture clearance prior to re-insertion of left sided pacemaker-they will get back to us today with their recs ID recommendations: -Continue Daptomycin 700mg Q 24 hours (anticipating 6 weeks of IV antibiotics) -Follow daily blood cultures -While on the IV antibiotics, please obtain at least a weekly cbc with diff, weekly CMP and TWICE weekly CPK -Timing of pacer replacement to be determined by culture clearance UTI (urinary tract infection) 03/09/2024 Assessment & Plan (04/05/2024 9:11 AM MUSIC ASSISTANT): Valdez catheter removed by RN post procedure on 03/08 and noted foul discharge upon removal. Patient also with altered mental status at the time. UA showing 2+ LE, >50 WBC, and 3+ bacteria. -S/p empiric IV Ceftriaxone 03/08-03/11 -Urine culture with no growth -Ceftriaxone discontinued Assessment & Plan (04/02/2024 12:51 PM MUSIC ASSISTANT): Valdez catheter removed by RN post procedure on 03/08 and noted foul discharge upon removal. Patient also with altered mental status at the time. UA showing 2+ LE, >50 WBC, and 3+ bacteria. -S/p empiric IV Ceftriaxone 03/08-03/11 -Urine culture with no growth -Ceftriaxone discontinued Assessment & Plan (04/01/2024 2:51 PM MUSIC ASSISTANT): Valdez catheter removed by RN post procedure on 03/08 and noted foul discharge upon removal. Patient also with altered mental status at the time. UA showing 2+ LE, >50 WBC, and 3+ bacteria. -S/p empiric IV Ceftriaxone 03/08-03/11 -Urine culture with no growth -Ceftriaxone discontinued Assessment & Plan (03/31/2024 9:42 AM MUSIC ASSISTANT): Valdez catheter removed by RN post procedure on 03/08 and noted foul discharge upon removal. Patient also with altered mental status at the time. UA showing 2+ LE, >50 WBC, and 3+ bacteria. -S/p empiric IV Ceftriaxone 03/08-03/11 -Urine culture with no growth -Ceftriaxone discontinued Assessment & Plan (03/30/2024 3:29 PM MUSIC ASSISTANT): Valdez catheter removed by RN post procedure on 03/08 and noted foul discharge upon removal. Patient also with altered mental status at the time. UA showing 2+ LE, >50 WBC, and 3+ bacteria. -S/p empiric IV Ceftriaxone 03/08-03/11 -Urine culture with no growth -Ceftriaxone discontinued Assessment & Plan (03/29/2024 10:36 AM MUSIC ASSISTANT): Valdez catheter removed by RN post procedure on 03/08 and noted foul discharge upon removal. Patient also with altered mental status at the time. UA showing 2+ LE, >50 WBC, and 3+ bacteria. -S/p empiric IV Ceftriaxone 03/08-03/11 -Urine culture with no growth -Ceftriaxone discontinued Assessment & Plan (03/26/2024 3:55 PM MUSIC ASSISTANT): Valdez catheter removed by RN post procedure on 03/08 and noted foul discharge upon removal. Patient also with altered mental status at the time. Sent clean catch UA showing 2+ LE, >50 WBC, and 3+ bacteria. -S/p empiric IV Ceftriaxone 03/08-03/11 -Urine culture with no growth -Ceftriaxone discontinued Assessment & Plan (03/25/2024 2:28 PM MUSIC ASSISTANT): Valdez catheter removed by RN post procedure on 03/08 and noted foul discharge upon removal. Patient also with altered mental status at the time. Sent clean catch UA showing 2+ LE, >50 WBC, and 3+ bacteria. -S/p empiric IV Ceftriaxone 03/08-03/11 -Urine culture with no growth -Ceftriaxone discontinued Assessment & Plan (03/24/2024 8:47 AM MUSIC ASSISTANT): Valdez catheter removed by RN post procedure on 03/08 and noted foul discharge upon removal. Patient also with altered mental status at the time. Sent clean catch UA showing 2+ LE, >50 WBC, and 3+ bacteria. -S/p empiric IV Ceftriaxone 03/08-03/11 -Urine culture with no growth -Ceftriaxone discontinued Assessment & Plan (03/23/2024 2:08 PM MUSIC ASSISTANT): Valdez catheter removed by RN post procedure on 03/08 and noted foul discharge upon removal. Patient also with altered mental status at the time. Sent clean catch UA showing 2+ LE, >50 WBC, and 3+ bacteria. -S/p empiric IV Ceftriaxone 03/08-03/11 -Urine culture with no growth -Ceftriaxone discontinued Assessment & Plan (03/22/2024 1:00 PM MUSIC ASSISTANT): Valdez catheter removed by RN post procedure on 03/08 and noted foul discharge upon removal. Patient also with altered mental status at the time. Sent clean catch UA showing 2+ LE, >50 WBC, and 3+ bacteria. -S/p empiric IV Ceftriaxone 03/08-03/11 -Urine culture with no growth -Ceftriaxone discontinued Assessment & Plan (03/21/2024 10:27 AM MUSIC ASSISTANT): Valdez catheter removed by RN post procedure on 03/08 and noted foul discharge upon removal. Patient also with altered mental status at the time. Sent clean catch UA showing 2+ LE, >50 WBC, and 3+ bacteria. -S/p empiric IV Ceftriaxone 03/08-03/11 -Urine culture with no growth -Ceftriaxone discontinued Assessment & Plan (03/20/2024 11:32 AM MUSIC ASSISTANT): Valdez catheter removed by RN post procedure on 03/08 and noted foul discharge upon removal. Patient also with altered mental status at the time. Sent clean catch UA showing 2+ LE, >50 WBC, and 3+ bacteria. -S/p empiric IV Ceftriaxone 03/08-03/11 -Urine culture with no growth -Ceftriaxone discontinued Assessment & Plan (03/19/2024 1:17 PM MUSIC ASSISTANT): Valdez catheter removed by RN post procedure on 03/08 and noted foul discharge upon removal. Patient also with altered mental status at the time. Sent clean catch UA showing 2+ LE, >50 WBC, and 3+ bacteria. -S/p empiric IV Ceftriaxone 03/08-03/11 -Urine culture with no growth -Ceftriaxone discontinued Assessment & Plan (03/18/2024 1:11 PM CDT): Valdez catheter removed by RN post procedure on 03/08 and noted foul discharge upon removal. Patient also with altered mental status at the time. Sent clean catch UA showing 2+ LE, >50 WBC, and 3+ bacteria. -S/p empiric IV Ceftriaxone 03/08-03/11 -Urine culture with no growth -Ceftriaxone discontinued Assessment & Plan (03/17/2024 8:49 AM CDT): Valdez catheter removed by RN post procedure on 03/08 and noted foul discharge upon removal. Patient also with altered mental status at the time. Sent clean catch UA showing 2+ LE, >50 WBC, and 3+ bacteria. -S/p empiric IV Ceftriaxone 03/08-03/11 -Urine culture with no growth -Ceftriaxone discontinued Assessment & Plan (03/16/2024 9:37 AM CDT): Valdez catheter removed by RN post procedure on 03/08 and noted foul discharge upon removal. Patient also with altered mental status at the time. Sent clean catch UA showing 2+ LE, >50 WBC, and 3+ bacteria. -Started empiric Ceftriaxone on 03/08 -Urine culture with no growth -Discontinue IV Ceftriaxone Assessment & Plan (03/14/2024 12:04 PM CDT): Valdez catheter removed by RN post procedure on 03/08 and noted foul discharge upon removal. Patient also with altered mental status at the time. Sent clean catch UA showing 2+ LE, >50 WBC, and 3+ bacteria. -Started empiric Ceftriaxone on 03/08 -Urine culture with no growth -Discontinue IV Ceftriaxone Assessment & Plan (03/11/2024 1:52 PM CDT): Vladez catheter removed by RN post procedure on 03/08 and noted foul discharge upon removal. Patient also with altered mental status at the time. Sent clean catch UA showing 2+ LE, >50 WBC, and 3+ bacteria. -Started empiric Ceftriaxone on 03/08 -Urine culture with no growth -Discontinue IV Ceftriaxone Assessment & Plan (03/10/2024 4:54 PM CDT): Valdez catheter removed by RN post procedure on 03/08 and noted foul discharge upon removal. Patient also with altered mental status at the time. Sent clean catch UA showing 2+ LE, >50 WBC, and 3+ bacteria. -Started empiric CFTX -F/u urine culture Assessment & Plan (03/09/2024 1:41 PM CDT): Valdez catheter removed by RN post procedure on 03/08 and noted foul discharge upon removal. Patient also with altered mental status at the time. Sent clean catch UA showing 2+ LE, >50 WBC, and 3+ bacteria. 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 at home and unclear baseline mental status -Unable to perform MRI in setting of temporary pacemaker -CT head w/contrast (03/08) with no acute intracranial abnormality -Delirium improved post anesthesia -Delirium and fall precautions -PT/OT-patient walking the halls with his walker with staff -remains to have VPO in place Assessment & Plan (04/02/2024 12:53 PM MUSIC ASSISTANT): Acute delirium on chronic memory loss -ID recommended RUNSTITCHING MACHINE OPERATOR imaging given falls at home and unclear baseline mental status -Unable to perform MRI in setting of temporary pacemaker -CT head w/contrast (03/08) with no acute intracranial abnormality -Delirium improved post anesthesia -Delirium and fall precautions -PT/OT-patient walking the halls with his walker and PCT today Assessment & Plan (04/01/2024 2:52 PM MUSIC ASSISTANT): Acute delirium on chronic memory loss -ID recommended RUNSTITCHING MACHINE OPERATOR imaging given falls at home and unclear baseline mental status -Unable to perform MRI in setting of temporary pacemaker -CT head w/contrast (03/08) with no acute intracranial abnormality -Delirium improved post anesthesia -Delirium and fall precautions Assessment & Plan (03/31/2024 9:39 AM MUSIC ASSISTANT): Acute delirium on chronic memory loss -ID recommended RUNSTITCHING MACHINE OPERATOR imaging given falls at home and unclear baseline mental status -Unable to perform MRI in setting of temporary pacemaker -CT head w/contrast (03/08) with no acute intracranial abnormality -Delirium improved post anesthesia -Delirium and fall precautions Assessment & Plan (03/30/2024 3:19 PM MUSIC ASSISTANT): Acute delirium on chronic memory loss -ID recommended RUNSTITCHING MACHINE OPERATOR imaging given falls at home and unclear baseline mental status -Unable to perform MRI in setting of temporary pacemaker -CT head w/contrast (03/08) with no acute intracranial abnormality -Delirium improved post anesthesia -Delirium and fall precautions Assessment & Plan (03/28/2024 8:58 AM MUSIC ASSISTANT): Acute delirium on chronic memory loss -ID recommended RUNSTITCHING MACHINE OPERATOR imaging given falls at home and unclear baseline mental status -Unable to perform MRI in setting of temporary pacemaker -CT head w/contrast (03/08) with no acute intracranial abnormality -Delirium improved post anesthesia -Delirium and fall precautions Assessment & Plan (03/26/2024 3:54 PM MUSIC ASSISTANT): Acute delirium on chronic memory loss -ID recommended RUNSTITCHING MACHINE OPERATOR imaging given falls at home and unclear baseline mental status -Unable to perform MRI in setting of temporary pacemaker -CT head w/contrast (03/08) with no acute intracranial abnormality -Delirium improved post anesthesia -Continue VPO -Delirium and fall precautions Assessment & Plan (03/25/2024 2:28 PM MUSIC ASSISTANT): Acute delirium on chronic memory loss -ID recommended RUNSTITCHING MACHINE OPERATOR imaging given falls at home and unclear baseline mental status -Unable to perform MRI in setting of temporary pacemaker -CT head w/contrast (03/08) with no acute intracranial abnormality -Delirium improved post anesthesia -Continue VPO -Delirium and fall precautions Assessment & Plan (03/24/2024 8:43 AM MUSIC ASSISTANT): Acute delirium on chronic memory loss -ID recommended RUNSTITCHING MACHINE OPERATOR imaging given falls at home and unclear baseline mental status -Unable to perform MRI in setting of temporary pacemaker -CT head w/contrast (03/08) with no acute intracranial abnormality -Delirium improved post anesthesia -Continue VPO -Delirium and fall precautions Assessment & Plan (03/23/2024 1:58 PM MUSIC ASSISTANT): Acute delirium on chronic memory loss -ID recommended RUNSTITCHING MACHINE OPERATOR imaging given falls at home and unclear baseline mental status -Unable to perform MRI in setting of temporary pacemaker -CT head w/contrast (03/08) with no acute intracranial abnormality -Delirium improved post anesthesia -Continue VPO -Delirium and fall precautions Assessment & Plan (03/22/2024 12:54 PM MUSIC ASSISTANT): Acute delirium on chronic memory loss -ID recommended RUNSTITCHING MACHINE OPERATOR imaging given falls at home and unclear baseline mental status -Unable to perform MRI in setting of temporary pacemaker -CT head w/contrast (03/08) with no acute intracranial abnormality -Delirium improved post anesthesia -Continue VPO -Delirium and fall precautions Assessment & Plan (03/21/2024 10:27 AM MUSIC ASSISTANT): Acute delirium on chronic memory loss -ID recommended RUNSTITCHING MACHINE OPERATOR imaging given falls at home and unclear baseline mental status -Unable to perform MRI in setting of temporary pacemaker -CT head w/contrast (03/08) with no acute intracranial abnormality -Delirium improved post anesthesia -Continue VPO -Delirium and fall precautions Assessment & Plan (03/20/2024 11:28 AM MUSIC ASSISTANT): Acute delirium on chronic memory loss -ID recommended RUNSTITCHING MACHINE OPERATOR imaging given falls at home and unclear baseline mental status -Unable to perform MRI in setting of temporary pacemaker -CT head w/contrast (03/08) with no acute intracranial abnormality -Delirium improved post anesthesia -Continue VPO -Delirium and fall precautions Assessment & Plan (03/19/2024 1:17 PM MUSIC ASSISTANT): Acute delirium on chronic memory loss -ID recommended RUNSTITCHING MACHINE OPERATOR imaging given falls at home and unclear baseline mental status -Unable to perform MRI in setting of temporary pacemaker -CT head w/contrast (03/08) with no acute intracranial abnormality -Delirium improved post anesthesia -Continue VPO -Delirium and fall precautions Assessment & Plan (03/18/2024 1:04 PM CDT): Acute delirium on chronic memory loss -ID recommended RUNSTITCHING MACHINE OPERATOR imaging given falls at home and unclear baseline mental status -Unable to perform MRI in setting of temporary pacemaker -CT head w/contrast (03/08) with no acute intracranial abnormality -Delirium improved post anesthesia -Continue 1:1 sitter -Delirium and fall precautions Assessment & Plan (03/17/2024 8:46 AM CDT): Acute delirium on chronic memory loss -ID recommended RUNSTITCHING MACHINE OPERATOR imaging given falls at home and unclear baseline mental status -Unable to perform MRI in setting of temporary pacemaker -CT head w/contrast (03/08) with no acute intracranial abnormality -Delirium improved post anesthesia -Continue 1:1 sitter -Delirium and fall precautions Assessment & Plan (03/16/2024 9:35 AM CDT): Acute delirium on chronic memory loss -ID recommended RUNSTITCHING MACHINE OPERATOR imaging given falls at home and unclear baseline mental status -Unable to perform MRI in setting of temporary pacemaker -CT head w/contrast (03/08) with no acute intracranial abnormality -Delerium improved post anesthesia -Continue 1:1 sitter -Delirium and Fall precautions Assessment & Plan (03/14/2024 12:04 PM CDT): Acute delirium on chronic memory loss -ID recommended RUNSTITCHING MACHINE OPERATOR imaging given falls at home and unclear baseline mental status -Unable to perform MRI in setting of temporary pacemaker -CT head w/contrast (03/08) with no acute intracranial abnormality -Delerium improved post anesthesia -Continue 1:1 sitter -Delirium and Fall precautions Assessment & Plan (03/13/2024 9:26 AM CDT): Acute delirium on chronic memory loss -ID recommended RUNSTITCHING MACHINE OPERATOR imaging given falls at home and unclear baseline mental status -Unable to perform MRI in setting of temporary pacemaker -CT head w/contrast (03/08) with no acute intracranial abnormality -Delerium improved post anesthesia -Continue 1:1 sitter -Delirium and Fall precautions Assessment & Plan (03/12/2024 3:53 PM CDT): Acute delirium on chronic memory loss -ID recommended RUNSTITCHING MACHINE OPERATOR imaging given falls at home and unclear baseline mental status -Unable to perform MRI in setting of temporary pacemaker -CT head w/contrast (03/08) with no acute intracranial abnormality -Continue 1:1 sitter -Delirium and Fall precautions Assessment & Plan (03/11/2024 2:04 PM CDT): -ID recommended RUNSTITCHING MACHINE OPERATOR imaging given falls at home and unclear baseline mental status -Unable to perform MRI in setting of temporary pacemaker -CT head w/contrast (03/08) with no acute intracranial abnormality -Continue 1:1 sitter -Delirium and Fall precautions Assessment & Plan (03/10/2024 4:50 PM CDT): -cont home donepezil -monitor for delirium and falls -hold trazodone and ramelteon tonight in setting of increased confusion x7 days -need for 1:1 sitter at this time -per ID, please obtain RUNSTITCHING MACHINE OPERATOR imaging given falls at home and unclear baseline mental status -unable to perform MRI in setting of temporary pacer -CT head w/ contrast (03/08) with no acute intracranial abnormality visualized Assessment & Plan (03/09/2024 1:26 PM CDT): -cont home donepezil -monitor for delirium and falls -hold trazodone and ramelteon tonight in setting of increased confusion x7 days -need for 1:1 sitter at this time -per ID, please obtain RUNSTITCHING MACHINE OPERATOR imaging given falls at home and unclear baseline mental status -unable to perform MRI in setting of temporary pacer -CT head w/ contrast (03/08) with no acute intracranial abnormality visualized Assessment & Plan (03/08/2024 3:48 PM CDT): -cont home donepezil -monitor for delirium and falls -hold trazodone and ramelteon tonight in setting of increased confusion x7 days -recent need for 1:1 sitter -per ID, please obtain RUNSTITCHING MACHINE OPERATOR imaging given falls at home and unclear baseline mental status, there is concern for RUNSTITCHING MACHINE OPERATOR infection -unable to perform MRI in setting of temporary pacer, will obtain CT head w/ contrast Assessment & Plan (03/07/2024 12:08 PM CDT): -cont home donepezil -monitor for delirium and falls -hold trazodone and ramelteon tonight in setting of increased confusion x7 days -recent need for 1:1 sitter Bloodstream infection associ ated with cardiovascular device ([facility]) 03/03/2024 Assessment & Plan (03/13/2024 11:23 AM CDT): Patient is a 83 y.o. man with history of prosthetic aortic valve, PPM (Feb 2022) and recent admission for MRSA bacteremia at [facility] who was admitted on 02/29/2024 due to difficulty with medication administration and concern for lead vegetation/persistent blood stream infection. ID was consulted on 03/01 for MRSA bacteremia The patient is admitted with MRSA again growing in the bloodstream. Port of entry likely from skin given description of boil provided by the patient's partner, Vita. Vegetation identified on lead likely nidus of ongoing bacteremia given he had multiple days of therapeutic vancomycin at [facility]. Fortunately, prosthetic aortic valve did not appear involved based on JOSEPH. Nothing on exam to suggest metastatic sites of infection, although it seems that he was likely bacteremic for a prolonged time which would predispose him to such complications. Patient had left IJ temporary externalized pacemaker implantation on 03/06 and underwent extraction of device and wires on 03/07.A sternal wire was removed. Cultures sent. Intraoperative JOSEPH without vegetation and comment on mild MR and TR with calcification seen on RCC of trileaflet aortic valve. Head CT without acute RUNSTITCHING MACHINE OPERATOR findings. Results: Blood cultures 02/28: MRSA 2 of 2 Blood cultures 16: NG Blood cultures 03/02: NG Blood cultures 03/03: MRSA 2 of 2 (multiple different colonies) CT chest 03/03: no drainable fluid collections within the chest. 13mm ground glass nodule in the RUL that could be sequelae of infection or inflammation or adenocarcinoma spectrum lesion. Small b/l pleural effusions. Blood cultures 03/04: MRSA 3 of 3 Blood cultures 03/05: MRSA 1 of 2 Blood cultures 03/06: MRSA 2 of 2 Blood cultures 03/07: MRSA 1 of 2 (multiple different colonies) JOSEPH 03/07: mild MR and TR, no thrombus seen on leads, calcification seen on RCC of trileaflet aortic valve. Pacer device 03/07: NG A-lead 03/07: NG V -lead 03/07: NG CT Head 03/08: No acute intracranial abnormality Blood cultures 03/08: MRSA 2 of 2 (multiple different colonies) Urine culture 03/08: NG Blood cultures 03/09: MRSA 2 of 2 Blood cultures 03/10: MRSA 1 of 2 Blood cultures 03/11: NGTD 1 of 1 Blood cultures 03/12: NGTD 2 of 2 Blood cultures have remained NGTD on 03/11 as well as 03/12 cultures. Patient with no new or or worsening foci of pain and is tolerating antibiotics well. Recommend 6 weeks of IV antibiotics from first negative blood culture. Regarding timing of pacer placement, we would recommend 2 weeks from first negative blood culture. Patient is NOT an OPAT candidate as he will be unable to safely administer IV antibiotics himself at home. Additionally, he does live with his fiance but she also is unable to appropriately administer IV antibiotics. Thus we would recommend patient continue IV antibiotics in a supervised setting. Please let us know if Daptomycin is cost prohibitive to placement. Of note, would NOT recommend vancomycin for this patient given his renal function and the inability for ID to manage OPAT at a facility. Recommendations: -Continue Daptomycin as ordered -While on the IV antibiotics, please obtain at least a weekly cbc with diff, weekly CMP and TWICE weekly CPK -Anticipating 6 weeks of IV antibiotics from first negative blood culture. So long as 03/11 cultures remain NGTD, anticipate an end date of 04/21 -So long as blood cultures remain NGTD, ok for pacer placement 03/24. -Would wait until repeat blood cultures have finalized as NG prior to placing PICC. -Thank you for allowing us to participate in the care of this patient. For questions or concerns, please do not hesitate to reach out. S/P AVR 09/10/2022 Assessment & Plan (09/10/2022 1:56 PM CDT): BioAVR in 2009. ECHO in follow up, Dev and CHARLEEE. Adjustment and management of cardiac pacemaker 1 Bradycardia 01/26/2022 Overview (01/26/2022): Added automatically from request for surgery [id number] Assessment & Plan (02/17/2022 9:33 AM CDT): Endorsed increased dizziness and lightheaded with associated sinus bradycardia on 48 hour Holter monitor. Follows with Dr. Valdovinos with EP -Completed procedure well without complications -Post-procedure plain film with leads in place and no pneumothorax -No heparin products overnight, SCDs ordered for DVT prophylaxis -PA/Lateral plain film w/o PTX, RA and RV wires in place. -s/p Cefazolin -s/p device check -Restart apixaban 02/19 per EP -outpatient follow up on 02/26 w/ EP Assessment & Plan (02/16/2022 9:33 PM CDT): Endorsed increased dizziness and lightheaded with associated sinus bradycardia on 48 hour Holter monitor. Follows with Dr. Valdovinos with EP -Completed procedure well without complications -Post-procedure plain film with leads in place and no pneumothorax -Plan for bedrest overnight -Device check in AM -No heparin products overnight, SCDs ordered for DVT prophylaxis -PA/Lateral plain film -Cefazolin ordered by EP -Holding Apixaban as well, EP will reevaluate in AM to determine when to restart Sinus node dysfunction (CMS/HCC) 12/14/2021 Assessment & Plan (09/10/2022 1:54 PM CDT): SP PPM, follow up per EP. Memory loss 07/16/2020 Assessment & Plan (04/05/2024 9:09 AM MUSIC ASSISTANT): Acute delirium on chronic memory loss -See acute delirium for A&P -Improved since anesthesia and pt cooperative but only oriented to person/place-unclear what patient's true baseline is (PCP office notes mention memory loss) -Could consider increasing Aricept to 10mg upon discharge Assessment & Plan (04/02/2024 12:51 PM MUSIC ASSISTANT): Acute delirium on chronic memory loss -See acute delirium for A&P -Improved since anesthesia and pt cooperative but only oriented to person/place-unclear what patient's true baseline is (PCP office notes mention memory loss) -Could consider increasing Aricept to 10mg upon discharge Assessment & Plan (04/01/2024 2:51 PM MUSIC ASSISTANT): Acute delirium on chronic memory loss -See acute delirium for A&P -Improved since anesthesia and pt cooperative but only oriented to person/place-unclear what patient's true baseline is (PCP office notes mention memory loss) -Could consider increasing Aricept to 10mg upon discharge Assessment & Plan (03/31/2024 9:41 AM MUSIC ASSISTANT): Acute delirium on chronic memory loss -See acute delirium for A&P -Improved since anesthesia and pt cooperative but only oriented to person/place-unclear what patient's true baseline is (PCP office notes mention memory loss) -Could consider increasing Aricept to 10mg upon discharge Assessment & Plan (03/30/2024 3:21 PM MUSIC ASSISTANT): Acute delirium on chronic memory loss -See acute delirium for A&P -Improved since anesthesia and pt cooperative but only oriented to person/place-unclear what patient's true baseline is (PCP office notes mention memory loss) -Could consider increasing Aricept to 10mg upon discharge Assessment & Plan (03/29/2024 10:34 AM MUSIC ASSISTANT): Acute delirium on chronic memory loss -See acute delirium for A&P -Improved since anesthesia and pt cooperative but only oriented to person/place-unclear what patient's true baseline is (PCP office notes mention memory loss) -could consider increasing Aricept to 10mg upon discharge Assessment & Plan (03/26/2024 3:55 PM MUSIC ASSISTANT): Acute delirium on chronic memory loss -See acute delirium for A&P -Improved since anesthesia and pt cooperative but only oriented to person/place-unclear what patient's true baseline is (PCP office notes mention memory loss) -Restart Trazodone if increased agitation Assessment & Plan (03/25/2024 2:28 PM MUSIC ASSISTANT): Acute delirium on chronic memory loss -See acute delirium for A&P -Improved since anesthesia and pt cooperative but only oriented to person/place-unclear what patient's true baseline is (PCP office notes mention memory loss) -Restart Trazodone if increased agitation Assessment & Plan (03/24/2024 8:46 AM MUSIC ASSISTANT): Acute delirium on chronic memory loss -See acute delirium for A&P -Improved since anesthesia and pt cooperative but only oriented to person/place-unclear what patient's true baseline is (PCP office notes mention memory loss) -Restart Trazodone if increased agitation Assessment & Plan (03/23/2024 2:07 PM MUSIC ASSISTANT): Acute delirium on chronic memory loss -See acute delirium for A&P -Improved since anesthesia and pt cooperative but only oriented to person/place-unclear what patient's true baseline is (PCP office notes mention memory loss) -Restart Trazodone if increased agitation Assessment & Plan (03/22/2024 12:56 PM MUSIC ASSISTANT): Acute delirium on chronic memory loss -See acute delirium for A&P -Improved since anesthesia and pt cooperative but only oriented to person/place-unclear what patient's true baseline is (PCP office notes mention memory loss) -Restart Trazodone if increased agitation Assessment & Plan (03/20/2024 11:30 AM MUSIC ASSISTANT): Acute delirium on chronic memory loss -See acute delirium for A&P -Improved since anesthesia and pt cooperative but only oriented to person/place-unclear what patient's true baseline is (PCP office notes mention memory loss) -Restart Trazodone if increased agitation Assessment & Plan (03/19/2024 1:17 PM MUSIC ASSISTANT): Acute delirium on chronic memory loss -See acute delirium for A&P -Improved since anesthesia and pt cooperative but only oriented to person- unclear what patient's true baseline is (PCP office notes mention memory loss) -Restart Trazodone if increased agitation Assessment & Plan (03/18/2024 1:06 PM CDT): Acute delirium on chronic memory loss -See acute delirium for A&P -Improved since anesthesia and pt cooperative but only oriented to person- unclear what patient's true baseline is (PCP office notes mention memory loss) -Restart Trazodone if increased agitation Assessment & Plan (03/17/2024 8:49 AM CDT): Acute delirium on chronic memory loss -See acute delirium for A&P -Improved since anesthesia and pt cooperative but only oriented to person- unclear what patient's true baseline is (PCP office notes mention memory loss) -Restart Trazadone if increased agitation Assessment & Plan (03/16/2024 9:37 AM CDT): Acute delirium on chronic memory loss -See acute delirium for A&P -Improved since anesthesia and pt cooperative but only oriented to person ---unclear what patient's true baseline is (PCP office notes mention memory loss) -Restart Trazadone if increased agitation Assessment & Plan (03/15/2024 9:52 AM CDT): Acute delirium on chronic memory loss -See acute delirium for A&P -Improving since post anesthesia -Restart Trazadone if increased agitation Assessment & Plan (03/14/2024 11:37 AM CDT): Acute delirium on chronic memory loss -See acute delirium for A&P -Improving since post anesthesia -Restart Trazadone if increased agitation Assessment & Plan (03/13/2024 9:26 AM CDT): Acute delirium on chronic memory loss -See acute delirium for A&P -Improving since post anesthesia -Restart Trazadone if increased agitation Assessment & Plan (03/12/2024 3:52 PM CDT): Acute delirium on chronic memory loss -See acute delirium for A&P -Improving since post anesthesia -Restart Trazadone if increased agitation Assessment & Plan (03/11/2024 2:04 PM CDT): Acute delirium on chronic memory loss -See acute delirium for A&P -Improving since post anesthesia -Restart Trazadone if increased agitation Assessment & Plan (03/10/2024 4:54 PM CDT): -now with acute delirium on chronic memory loss -see acute delirium for A&P -improving since post anesthesia -restart Trazadone if increased agitation Assessment & Plan (03/09/2024 1:31 PM CDT): -now with acute delirium on chronic memory loss -see acute delirium for A&P Assessment & Plan (03/08/2024 4:02 PM CDT): -now with acute delirium on chronic memory loss -see acute delirium for A&P Assessment & Plan (03/07/2024 12:08 PM CDT): -cont home donepezil -monitor for delirium and falls Assessment & Plan (03/06/2024 10:08 AM CDT): -cont home donepezil -monitor for delirium and falls -improving with trazodone and ramelteon--A&O x4 today -recent need for 1:1 sitter--now with VPO Assessment & Plan (03/05/2024 10:36 AM CDT): -cont home donepezil -monitor for delirium and falls -1:1 sitter--please see nursing documentation from 02/28 -improving with trazodone and ramelteon Assessment & Plan (03/04/2024 10:04 AM CDT): -cont Aricept -monitor for delirium and falls -1:1 sitter--please see nursing documentation from 02/28 -improving with Trazadone and Ramelton Assessment & Plan (03/03/2024 11:14 AM CDT): -cont Aricept -monitor for delirium and falls -1:1 sitter--please see nursing documentation from 02/28 -improving with Trazadone and Ramelton Assessment & Plan (03/02/2024 10:02 AM CDT): -cont Aricept -monitor for delirium and falls -1:1 sitter--please see nursing documentation from 02/28 Assessment & Plan (03/01/2024 11:01 AM CDT): -cont Aricept -monitor for delirium and falls -1:1 sitter--please see nursing documentation from 02/28 Assessment & Plan (02/29/2024 11:34 AM CDT): -cont Aricept -monitor for delirium and falls Assessment & Plan (02/17/2022 7:57 AM CDT): A&Ox3 -Continue home donepezil 5 mg qday Assessment & Plan (02/16/2022 9:35 PM CDT): A&Ox3 -Continue home donepezil 5 mg qday Assessment & Plan (07/16/2020 12:33 PM MUSIC ASSISTANT): Will check screening labs. 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 Denies dream enactment. + Memory loss PLMD (periodic limb movement disorder) 8 Overview (03/04/2018): Not associated with arousal Atrial fibrillation (CMS/HCC) 02/10/2018 Assessment & Plan (04/03/2024 10:51 AM MUSIC ASSISTANT): History of persistent A. Fib on Eliquis -Currently rate controlled -Continue metoprolol XL 25 mg daily -Continue Eliquis 5 mg BID -Telemetry monitoring Assessment & Plan (04/02/2024 12:51 PM MUSIC ASSISTANT): History of persistent A. Fib on Eliquis -Currently rate controlled -Continue metoprolol XL 25 mg daily -Continue Eliquis 5 mg BID -Telemetry monitoring Assessment & Plan (04/01/2024 2:52 PM MUSIC ASSISTANT): History of persistent A. Fib on Eliquis -Currently rate controlled -Continue metoprolol Xl 25 mg daily -Continue Eliquis 5 mg BID -Telemetry monitoring Assessment & Plan (03/31/2024 9:40 AM MUSIC ASSISTANT): History of persistent A. Fib on Eliquis -Currently SB/NSR, temp pacer set VVI at 50 -Resumed Eliquis per EP, hold prior to PPM placement and resume based on EP recs -Telemetry monitoring Assessment & Plan (03/30/2024 3:20 PM MUSIC ASSISTANT): History of persistent A. Fib on Eliquis -Currently SB/NSR, temp pacer set VVI at 50 -Resumed Eliquis per EP, hold prior to PPM placement and resume based on EP recs -Telemetry monitoring Assessment & Plan (03/29/2024 10:29 AM MUSIC ASSISTANT): History of persistent A. Fib on Eliquis -Currently SB/NSR, temp pacer set VVI at 50 -Resumed Eliquis per EP, given ok to continue Eliquis with pending pacer placement -Telemetry monitoring Assessment & Plan (03/26/2024 3:54 PM MUSIC ASSISTANT): History of persistent A. Fib on Eliquis -Currently SB/NSR, temp pacer set VVI at 50 -Resumed Eliquis per EP -Appreciate EP recs regarding AC prior to placement of PPM -Telemetry monitoring Assessment & Plan (03/25/2024 2:27 PM MUSIC ASSISTANT): History of persistent A. Fib on Eliquis -Currently SB/NSR, temp pacer set VVI at 50 -Resumed Eliquis per EP -Appreciate EP recs regarding AC prior to placement of PPM -Telemetry monitoring Assessment & Plan (03/24/2024 8:43 AM MUSIC ASSISTANT): History of persistent A. Fib on Eliquis -Currently SB/NSR, temp pacer set VVI at 50 -Resumed Eliquis per EP -Appreciate EP recs regarding AC prior to placement of PPM -Telemetry monitoring Assessment & Plan (03/23/2024 2:06 PM MUSIC ASSISTANT): History of persistent A. Fib on Eliquis -Currently SB/NSR, temp pacer set VVI at 50 -Resumed Eliquis per EP -Appreciate EP recs regarding AC prior to placement of PPM -Telemetry monitoring Assessment & Plan (03/22/2024 12:56 PM MUSIC ASSISTANT): History of persistent A. Fib on Eliquis -Currently V-paced, VVI at 50 -Per EP, resume Eliquis today -Appreciate EP recs regarding holding Eliquis prior to placement of PPM -Telemetry monitoring Assessment & Plan (03/21/2024 10:26 AM MUSIC ASSISTANT): History of persistent A. Fib on Eliquis -Currently V-paced, VVI at 50 -Holding Eliquis for procedure -Hold therapeutic anticoagulation given bleeding risk s/p PPM and lead extraction -SQ heparin for DVT ppx (Ok per EP) -Telemetry monitoring Assessment & Plan (03/20/2024 11:29 AM MUSIC ASSISTANT): History of persistent A. Fib on Eliquis. -S/p temporary pacemaker placement on 03/06 and removal of PPM on 03/07 -Currently V-paced, HR 70s -Holding Eliquis for procedure -Hold therapeutic anticoagulation given bleeding risk s/p PPM and lead extraction -SQ heparin for DVT ppx (Ok per EP) -Telemetry monitoring Assessment & Plan (03/19/2024 1:14 PM MUSIC ASSISTANT): History of persistent A. Fib on Eliquis. -S/p temporary pacemaker placement on 03/06 and removal of PPM on 03/07 -Currently V-paced, HR 70s -Holding Eliquis for procedure -Hold therapeutic anticoagulation given bleeding risk s/p PPM and lead extraction -SQ heparin for DVT ppx (Ok per EP) -Telemetry monitoring Assessment & Plan (03/18/2024 1:05 PM CDT): History of persistent A. Fib on Eliquis. -S/p temporary pacemaker placement on 03/06 and removal of PPM on 03/07 -Currently V-paced, HR 70s -Holding Eliquis for procedure -Hold therapeutic anticoagulation given bleeding risk s/p PPM and lead extraction -SQ heparin for DVT ppx (Ok per EP) -Telemetry monitoring Assessment & Plan (03/17/2024 8:45 AM CDT): History of persistent A. Fib on Eliquis. -S/p temporary pacemaker placement on 03/06 and removal of PPM on 03/07 -Currently V-paced, HR 70s -Holding Eliquis for procedure -Hold therapeutic anticoagulation given bleeding risk s/p PPM and lead extraction -SQ heparin for DVT ppx (Ok per EP) -Telemetry monitoring Assessment & Plan (03/16/2024 9:35 AM CDT): History of persistent A. Fib on Eliquis. -S/p temporary pacer placement 03/06 and removal of PPM on 03/07 -Currently V-paced, HR 70s -Holding Eliquis for procedure -Hold therapeutic anticoagulation given bleeding risk s/p PPM and lead extraction -SQ heparin for DVT ppx (Ok per EP) -Telemetry monitoring Assessment & Plan (03/15/2024 9:52 AM CDT): History of persistent A. Fib on Eliquis. -S/p temporary pacer placement 03/06 and removal of PPM on 03/07 -Currently V-paced, HR 70s -Holding Eliquis for procedure -Hold therapeutic anticoagulation given bleeding risk s/p PPM and lead extraction -SQ heparin for DVT ppx (Ok per EP) -Telemetry monitoring Assessment & Plan (03/14/2024 11:36 AM CDT): History of persistent A. Fib on Eliquis. -S/p temporary pacer placement 03/06 and removal of PPM on 03/07 -Currently V-paced, HR 70s -Holding Eliquis for procedure -Hold therapeutic anticoagulation given bleeding risk s/p PPM and lead extraction -SQ heparin for DVT ppx (Ok per EP) -Telemetry monitoring Assessment & Plan (03/13/2024 9:21 AM CDT): History of persistent A. Fib on Eliquis. -S/p temporary pacer placement 03/06 and removal of PPM on 03/07 -Currently V-paced, HR 70s -Holding Eliquis for procedure -Hold therapeutic anticoagulation given bleeding risk s/p PPM and lead extraction -SQ heparin for DVT ppx (Ok per EP) -Telemetry monitoring Assessment & Plan (03/12/2024 3:51 PM CDT): History of persistent A. Fib on Eliquis. -S/p temporary pacer placement 03/06 and removal of PPM on 03/07 -Currently V-paced, HR 70s -Holding Eliquis for procedure -Hold therapeutic anticoagulation given bleeding risk s/p PPM and lead extraction -Per EP ok to start SQ heparin for DVT ppx -Telemetry monitoring Assessment & Plan (03/11/2024 1:50 PM CDT): History of persistent A. Fib on Eliquis. -S/p temporary pacer placement 03/06 and removal of PPM on 03/07 -Currently V-paced, HR 70s -Holding Eliquis for procedure -Hold therapeutic anticoagulation given bleeding risk s/p PPM and lead extraction -Per EP ok to start SQ heparin for DVT ppx -Telemetry monitoring Assessment & Plan (03/10/2024 4:51 PM CDT): Persistent afib on Eliquis. -afib 40s underlying rhythm on device interrogation -s/p temporary pacer placement 03/06 and removal of PPM on 03/07 -hold Eliquis for procedure -hold therapeutic anticoagulation given bleeding risk s/p PPM and lead extraction -per EP ok to start SQ heparin for DVT ppx -tele Assessment & Plan (03/09/2024 1:27 PM CDT): Persistent afib on Eliquis. -afib 40s underlying rhythm on device interrogation -s/p temporary pacer placement 03/06 and removal of PPM on 03/07 -hold Eliquis for procedure -hold therapeutic anticoagulation given bleeding risk s/p PPM and lead extraction -per EP ok to start SQ heparin for DVT ppx -tele Assessment & Plan (03/08/2024 3:54 PM CDT): Persistent afib on Eliquis. -afib 40s underlying rhythm on device interrogation -s/p temporary pacer placement 03/06 and removal of PPM on 03/07 -hold Eliquis for procedure -hold heparin gtt given bleeding risk s/p PPM and lead extraction -tele Assessment & Plan (03/07/2024 12:10 PM CDT): Persistent afib on Eliquis. -afib 40s underlying rhythm on device interrogation -hold Eliquis for procedure, held heparin gtt at midnight for procedures -tele Assessment & Plan (03/06/2024 9:54 AM CDT): Persistent afib on Eliquis. -afib 40s underlying rhythm on device interrogation -hold Eliquis for procedure, held heparin gtt at midnight for procedures -tele Assessment & Plan (03/05/2024 10:54 AM CDT): Persistent afib on Eliquis. -afib 40s underlying rhythm on device interrogation -hold Eliquis for procedure, continue heparin gtt Assessment & Plan (01/06/2024 2:57 PM CDT): Stable doing well Assessment & Plan (09/27/2023 3:32 PM CDT): Doing well at this time. Remains on anticoagulation. Assessment & Plan (09/10/2022 1:59 PM CDT): Sounds irregular on Exam, continue Eliquis, SP PPM with persistent AFIB, and some RVR on device interogation will resume BB. Metoprolol 25mg XL daily. Assessment & Plan (07/16/2020 12:32 PM MUSIC ASSISTANT): Stable to see Dr. Nina this week. Of note his heart rate today was 56 when I examine the patient Low back pain 06/06/2015 Syncope 12/24/2014 Chronic coronary artery disease 01/26/2014 Assessment & Plan (04/05/2024 9:09 AM MUSIC ASSISTANT): CAD s/p CABG 2009 (3V GOLDMAN-LAD, SVG-OM, SVG-RCA) performed at the time of Ao Valve Surgery -Currently denies chest pain -Continue aspirin, statin and niacin Assessment & Plan (04/02/2024 12:51 PM MUSIC ASSISTANT): CAD s/p CABG 2009 (3V GOLDMAN-LAD, SVG-OM, SVG-RCA) performed at the time of Ao Valve Surgery -Currently denies chest pain -Continue aspirin, statin and niacin Assessment & Plan (04/01/2024 2:51 PM MUSIC ASSISTANT): CAD s/p CABG 2009 (3V GOLDMAN-LAD, SVG-OM, SVG-RCA) performed at the time of Ao Valve Surgery -Currently denies chest pain -Continue aspirin, statin and niacin Assessment & Plan (03/30/2024 3:20 PM MUSIC ASSISTANT): CAD s/p CABG 2009 (3V GOLDMAN-LAD, SVG-OM, SVG-RCA) performed at the time of Ao Valve Surgery -Currently denies chest pain -Continue aspirin, statin, and niacin Assessment & Plan (03/27/2024 10:04 AM MUSIC ASSISTANT): CAD s/p CABG 2009 (3V GOLDMAN-LAD, SVG-OM, SVG-RCA) performed at the time of Ao Valve Surgery -Currently denies chest pain -Continue aspirin, statin, and niacin Assessment & Plan (03/26/2024 3:55 PM MUSIC ASSISTANT): CAD s/p CABG 2009 (3V GOLDMAN-LAD, SVG-OM, SVG-RCA) performed at the time of Ao Valve Surgery -Currently denies chest pain -Continue aspirin, statin, and niacin Assessment & Plan (03/25/2024 2:28 PM MUSIC ASSISTANT): CAD s/p CABG 2009 (3V GOLDMAN-LAD, SVG-OM, SVG-RCA) performed at the time of Ao Valve Surgery -Currently denies chest pain -Continue aspirin, statin, and niacin Assessment & Plan (03/24/2024 8:45 AM MUSIC ASSISTANT): CAD s/p CABG 2009 (3V GOLDMAN-LAD, SVG-OM, SVG-RCA) performed at the time of Ao Valve Surgery -Currently denies chest pain -Continue aspirin, statin, and niacin Assessment & Plan (03/23/2024 2:06 PM MUSIC ASSISTANT): CAD s/p CABG 2009 (3V GOLDMAN-LAD, SVG-OM, SVG-RCA) performed at the time of Ao Valve Surgery -Currently denies chest pain -Continue aspirin, statin, and niacin Assessment & Plan (03/22/2024 12:56 PM MUSIC ASSISTANT): CAD s/p CABG 2009 (3V GOLDMAN-LAD, SVG-OM, SVG-RCA) performed at the time of Ao Valve Surgery -Currently denies chest pain -Continue aspirin, statin, and niacin Assessment & Plan (03/20/2024 11:29 AM MUSIC ASSISTANT): CAD s/p CABG 2009 (3V GOLDMAN-LAD, SVG-OM, SVG-RCA) performed at the time of Ao Valve Surgery -Currently denies chest pain -Continue aspirin, statin, and niacin Assessment & Plan (03/19/2024 1:14 PM MUSIC ASSISTANT): CAD s/p CABG 2009 (3V GOLDMAN-LAD, SVG-OM, SVG-RCA) performed at the time of Ao Valve Surgery -Currently denies chest pain -Continue aspirin, statin, and niacin Assessment & Plan (03/18/2024 1:05 PM CDT): CAD s/p CABG 2009 (3V GOLDMAN-LAD, SVG-OM, SVG-RCA) performed at the time of Ao Valve Surgery -Currently denies chest pain -Continue aspirin, statin, and niacin Assessment & Plan (03/17/2024 8:49 AM CDT): CAD s/p CABG 2009 (3V GOLDMAN-LAD, SVG-OM, SVG-RCA) performed at the time of Ao Valve Surgery -Currently denies chest pain -Continue aspirin, statin and naicin Assessment & Plan (03/16/2024 9:36 AM CDT): CAD s/p CABG 2009 (3V GOLDMAN-LAD, SVG-OM, SVG-RCA) performed at the time of Ao Valve Surgery -Currently denies chest pain -Continue aspirin, statin and naicin Assessment & Plan (03/15/2024 9:51 AM CDT): CAD s/p CABG 2009 (3V GOLDMAN-LAD, SVG-OM, SVG-RCA) performed at the time of Ao Valve Surgery -Currently denies chest pain -Continue aspirin, statin and naicin Assessment & Plan (03/14/2024 11:35 AM CDT): CAD s/p CABG 2009 (3V GOLDMAN-LAD, SVG-OM, SVG-RCA) performed at the time of Ao Valve Surgery -Currently denies chest pain -Continue aspirin, statin and naicin Assessment & Plan (03/13/2024 9:21 AM CDT): CAD s/p CABG 2009 (3V GOLDMAN-LAD, SVG-OM, SVG-RCA) performed at the time of Ao Valve Surgery -Currently denies chest pain -Continue aspirin, statin and naicin Assessment & Plan (03/12/2024 3:52 PM CDT): CAD s/p CABG 2009 (3V GOLDMAN-LAD, SVG-OM, SVG-RCA) performed at the time of Ao Valve Surgery -Currently denies chest pain -Continue aspirin, statin and naicin Assessment & Plan (03/11/2024 1:49 PM CDT): CAD s/p CABG 2009 (3V GOLDMAN-LAD, SVG-OM, SVG-RCA) performed at the time of Ao Valve Surgery -Currently denies chest pain -Continue aspirin, statin and naicin Assessment & Plan (03/10/2024 4:52 PM CDT): CAD s/p CABG 2009 (3V GOLDMAN-LAD, SVG-OM, SVG-RCA) performed at the time of Ao Valve Surgery -continue ACEi/beta judith -continue ASA, statin, and Niacin Assessment & Plan (03/09/2024 1:31 PM CDT): CAD s/p CABG 2009 (3V GOLDMAN-LAD, SVG-OM, SVG-RCA) performed at the time of Ao Valve Surgery -continue ACEi/beta judith -continue ASA, statin, and Niacin Assessment & Plan (03/08/2024 4:01 PM CDT): CAD s/p CABG 2009 (3V GOLDMAN-LAD, SVG-OM, SVG-RCA) performed at the time of Ao Valve Surgery -continue ACEi/beta judith -continue ASA, statin, and Niacin Assessment & Plan (03/07/2024 12:06 PM CDT): CAD s/p CABG 2009 (3V GOLDMAN-LAD, SVG-OM, SVG-RCA) performed at the time of Ao Valve Surgery -contine Jesus/beta judith -continue ASA, statin, and Niacin Assessment & Plan (03/06/2024 10:07 AM CDT): CAD s/p CABG 2009 (3V GOLDMAN-LAD, SVG-OM, SVG-RCA) performed at the time of Ao Valve Surgery -contine Jesus/beta judith -continue ASA, statin, and Niacin Assessment & Plan (03/05/2024 10:38 AM CDT): CAD s/p CABG 2009 (3V GOLDMAN-LAD, SVG-OM, SVG-RCA) performed at the time of Ao Valve Surgery -contine Jesus/beta judith -continue ASA, statin and Niacin Assessment & Plan (03/04/2024 10:03 AM CDT): CAD s/p CABG 2009 (3V GOLDMAN-LAD, SVG-OM, SVG-RCA) performed at the time of Ao Valve Surgery -Cont Jesus/beta judith -Statin and Niacin -Aspirin 81mg Assessment & Plan (03/03/2024 11:13 AM CDT): CAD s/p CABG 2009 (3V GOLDMAN-LAD, SVG-OM, SVG-RCA) performed at the time of Ao Valve Surgery -Cont Jesus/beta judith -Statin and Niacin -Aspirin 81mg Assessment & Plan (03/02/2024 10:02 AM CDT): CAD s/p CABG 2009 (3V GOLDMAN-LAD, SVG-OM, SVG-RCA) performed at the time of Ao Valve Surgery -Cont Jesus/beta judith -Statin and Niacin -Aspirin 81mg Assessment & Plan (03/01/2024 11:00 AM CDT): CAD s/p CABG 2009 (3V GOLDMAN-LAD, SVG-OM, SVG-RCA) performed at the time of Ao Valve Surgery -Cont Jesus/beta judith -Statin and Niacin -Aspirin 81mg Assessment & Plan (02/29/2024 11:32 AM CDT): CAD s/p CABG 2009 (3V GOLDMAN-LAD, SVG-OM, SVG-RCA) performed at the time of Ao Valve Surgery -Cont Jesus/beta judith -Statin and Niacin -Aspirin 81mg Assessment & Plan (01/06/2024 2:57 PM CDT): Doing well. Assessment & Plan (09/27/2023 3:32 PM CDT): Stable and doing well. Assessment & Plan (07/16/2020 12:32 PM MUSIC ASSISTANT): Stable no evidence of any chest pain Hypercholesterolemia 01/26/2014 Assessment & Plan (01/06/2024 2:57 PM CDT): Stable Assessment & Plan (09/27/2023 3:32 PM CDT): On atorvastatin. Assessment & Plan (02/17/2022 7:57 AM CDT): Continue home atorvastatin and niacin Assessment & Plan (02/16/2022 9:35 PM CDT): Continue home atorvastatin and niacin Assessment & Plan (07/16/2020 12:32 PM MUSIC ASSISTANT): Lipid reviewed Hypertension 01/26/2014 Assessment & Plan (04/03/2024 10:51 AM MUSIC ASSISTANT): BP at goal -Continue home metoprolol XL 25 mg daily Assessment & Plan (04/02/2024 12:51 PM MUSIC ASSISTANT): BP at goal -Continue home metoprolol XL 25 mg daily Assessment & Plan (04/01/2024 2:51 PM MUSIC ASSISTANT): BP at goal -Continue home metoprolol XL 25 mg daily Assessment & Plan (03/31/2024 9:41 AM MUSIC ASSISTANT): BP at goal -Continue home metoprolol XL 25 mg daily -Currently holding lisinopril due to rise in S cr and hyperkalemia - consider DC'ing today Assessment & Plan (03/30/2024 3:20 PM MUSIC ASSISTANT): BP at goal -Continue home metoprolol XL 25 mg daily -Currently holding lisinopril due to rise in S cr and hyperkalemia Assessment & Plan (03/29/2024 10:32 AM MUSIC ASSISTANT): BP at goal -Continue home metoprolol XL 25 mg daily -currently holding lisinopril due to rise in S cr and hyperkalemia Assessment & Plan (03/26/2024 3:55 PM MUSIC ASSISTANT): BP at goal -Continue home metoprolol XL -Holding lisinopril due to rise in Cr and hyperkalemia Assessment & Plan (03/25/2024 2:28 PM MUSIC ASSISTANT): BP at goal -Continue home metoprolol XL -Holding lisinopril due to rise in Cr and hyperkalemia Assessment & Plan (03/24/2024 8:46 AM MUSIC ASSISTANT): BP at goal -Continue home metoprolol XL -Hold lisinopril due to rise in Cr and hyperkalemia Assessment & Plan (03/23/2024 2:06 PM MUSIC ASSISTANT): BP at goal -Continue home metoprolol XL -Hold lisinopril due to rise in Cr and hyperkalemia Assessment & Plan (03/22/2024 12:56 PM MUSIC ASSISTANT): BP at goal -Continue home metoprolol XL -Hold lisinopril due to rise in Cr and hyperkalemia Assessment & Plan (03/21/2024 10:25 AM MUSIC ASSISTANT): BP at goal -Continue home metoprolol XL -Hold lisinopril due to rise in Cr and hyperkalemia Assessment & Plan (03/20/2024 11:29 AM MUSIC ASSISTANT): BP at goal -Continue home metoprolol XL -Hold lisinopril due to rise in Cr and hyperkalemia Assessment & Plan (03/19/2024 1:14 PM MUSIC ASSISTANT): BP at goal -Continue home metoprolol XL -Hold lisinopril due to rise in Cr and hyperkalemia Assessment & Plan (03/18/2024 1:06 PM CDT): BP at goal -Continue home metoprolol XL -Hold lisinopril due to rise in Cr and hyperkalemia Assessment & Plan (03/17/2024 8:49 AM CDT): BP at goal -Continue home lisinopril and metoprolol XL Assessment & Plan (03/16/2024 9:36 AM CDT): BP at goal -Continue home lisinopril and metoprolol XL Assessment & Plan (03/15/2024 9:51 AM CDT): BP at goal -Continue home lisinopril and metoprolol XL Assessment & Plan (03/14/2024 11:36 AM CDT): BP at goal -Continue home lisinopril and metoprolol XL Assessment & Plan (03/13/2024 9:21 AM CDT): BP at goal -Continue home lisinopril and metoprolol XL Assessment & Plan (03/12/2024 3:52 PM CDT): BP at goal -Continue home lisinopril and metoprolol XL Assessment & Plan (03/11/2024 1:50 PM CDT): BP at goal -Continue home lisinopril and metoprolol XL Assessment & Plan (03/10/2024 4:53 PM CDT): BP at goal -continue home lisinopril and metoprolol Assessment & Plan (03/09/2024 1:31 PM CDT): BP at goal -continue home lisinopril and metoprolol Assessment & Plan (03/08/2024 4:01 PM CDT): BP at goal -continue home lisinopril and metoprolol Assessment & Plan (03/07/2024 12:09 PM CDT): BP at goal -continue home lisinopril and metoprolol Assessment & Plan (03/06/2024 10:07 AM CDT): BP at goal -continue home lisinopril and metoprolol Assessment & Plan (03/05/2024 10:37 AM CDT): BP at goal -continue home lisinopril and metoprolol Assessment & Plan (03/04/2024 10:04 AM CDT): -BP stable upon arrival -Cont Metoprolol and Lisinopril Assessment & Plan (03/03/2024 11:13 AM CDT): -BP stable upon arrival -Cont Metoprolol and Lisinopril Assessment & Plan (03/02/2024 10:02 AM CDT): -BP stable upon arrival -Cont Metoprolol and Lisinopril Assessment & Plan (03/01/2024 11:00 AM CDT): -BP stable upon arrival -Cont Metoprolol and Lisinopril Assessment & Plan (02/29/2024 11:35 AM CDT): -BP stable upon arrival Cont Metoprolol and Lisinopril Assessment & Plan (01/06/2024 2:57 PM CDT): BP at target. Assessment & Plan (09/27/2023 3:32 PM CDT): BP at target. Assessment & Plan (02/17/2022 7:57 AM CDT): Continue home lisinopril 20 mg qday Assessment & Plan (02/16/2022 9:35 PM CDT): Continue home lisinopril 20 mg qday Assessment & Plan (07/16/2020 12:32 PM MUSIC ASSISTANT): Blood pressure at target History of coronary artery bypass surgery 2013 Assessment & Plan (09/10/2022 1:56 PM CDT): CAD with CABG in the past x 3 in September. Aortic Aneurysm repair and BioAVR in 2009. Needs an ECHO, ordered for 6 month follow up. Continue ASA, statin, niacin and Eliquis routine lab work with PCP in September 2022. Assessment & Plan (02/17/2022 7:57 AM CDT): S/p CABG in 2009 -Continue home atorvastatin -No longer on ASA since he is on Eliquis -Also taken off his Metoprolol in the last year due to sinus bradycardia Assessment & Plan (02/16/2022 9:34 PM CDT): S/p CABG in 2009 -Continue home atorvastatin -No longer on ASA since he is on Eliquis -Also taken off his Metoprolol in the last year due to sinus bradycardia Resolved Problems Problem Noted Date Diagnosed Date Resolved Date Bloodstream infection associ ated with cardiovascular device, subsequent encounter 02/29/2024 03/17/2024 Assessment & Plan (03/27/2024 10:13 AM MUSIC ASSISTANT): Recently presented to [facility] with fevers and altered mental status. 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 The patient was instructed to come to [facility]. [employer] PPM implanted 02/16/2022. -Pacemaker dependent--s/p temporary pacer placed by EP on 03/06 (will need until re-implant), s/p device extracted by CTS on 03/07 -OK for re-implant 03/24 if cultures remain negative -ID consulted, discontinued vancomycin and started daptomycin -Blood cultures intermittently positive for MRSA--see ID note for specific dates -Blood cultures positive on 03/14 for gram positive cocci -Persistently positive blood cultures concern for aortic valve involvement, will get JOSEPH tomorrow -ordered Panorex -ID recommends addition of ceftaroline 600mg q12 -follow weekly CK while on dapto - stable -Pt remains hemodynamically stable, afebrile Assessment & Plan (03/17/2024 8:28 AM CDT): Recently presented to [facility] with fevers and altered mental status. 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 The patient was instructed to come to [facility]. [employer] PPM implanted 02/16/2022. -Pacemaker dependent--s/p temporary pacer placed by EP on 03/06 (will need until re-implant), s/p device extracted by CTS on 03/07 -OK for re-implant 03/24 if cultures remain negative -ID consulted, discontinued vancomycin and started daptomycin -Blood cultures intermittently positive for MRSA--see ID note for specific dates -Blood cultures positive on 03/14 for gram positive cocci -Persistently positive blood cultures concern for aortic valve involvement, will get JOSEPH tomorrow -ordered Panorex -ID recommends addition of ceftaroline 600mg q12 -follow weekly CK while on dapto - stable -Pt remains hemodynamically stable, afebrile Assessment & Plan (03/16/2024 9:36 AM CDT): Recently presented to [facility] with fevers and altered mental status. 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 The patient was instructed to come to [facility]. [employer] PPM implanted 02/16/2022. -Pacemaker dependent--s/p temporary pacer placed by EP on 03/06 (will need until re-implant), s/p device extracted by CTS on 03/07 -OK for re-implant 03/24 if cultures remain negative -ID consulted, discontinued vancomycin and started daptomycin -Blood cultures intermittently positive for MRSA--see ID note for specific dates -Blood cultures positive on 03/14 for gram positive cocci -Persistently positive blood cultures concern for aortic valve involvement, will get JOSEPH tomorrow -ordered Panorex -ID recommends addition of ceftaroline 600mg q12 -follow weekly CK while on dapto - stable -Pt remains hemodynamically stable, afebrile Assessment & Plan (03/15/2024 10:00 AM CDT): Recently presented to [facility] with fevers and altered mental status. 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 The patient was instructed to come to [facility]. [employer] PPM implanted 02/16/2022. -Pacemaker dependent--s/p temporary pacer placed by EP on 03/06 (will need until re-implant), s/p device extracted by CTS on 03/07 -OK for re-implant 03/24 if cultures remain negative -ID consulted, discontinued vancomycin and started daptomycin -Blood cultures intermittently positive for MRSA--see ID note for specific dates -Blood cultures positive on 03/14 for gram positive cocci -Persistently positive blood cultures concern for aortic valve involvement, will get JOSEPH tomorrow -ordered Panorex -ID recommends addition of ceftaroline 600mg q12 -follow weekly CK while on dapto -Pt remains hemodynamically stable, afebrile Assessment & Plan (03/14/2024 12:02 PM CDT): Recently presented to [facility] with fevers and altered mental status. 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 The patient was instructed to come to [facility]. [employer] PPM implanted 02/16/2022. 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 He will remain hospitalized until at least -Anticipating 6 weeks of IV antibiotics from first negative blood culture. So long as 03/11 cultures remain NGTD, anticipate an end date of 04/21 -Will discuss PICC timing with ID as he seems to have cleared since 03/11 -ID prefers Dapto, but if cost prohibitive can use Ceftaroline. Assessment & Plan (03/12/2024 3:55 PM CDT): Recently presented to [facility] with fevers and altered mental status. 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 The patient was instructed to come to [facility]. [employer] PPM implanted 02/16/2022. 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 13mm ground glass nodule in the RUL that could be sequelae of infection or inflammation or adenocarcinoma spectrum lesion. Small b/l pleural effusions. -BCx 03/04: MRSA 3 of 3 -BCx 03/05: MRSA 1 of 2 -Blood cultures 03/06: MRSA 2 of 2 -Temporary pacer placed by EP on 03/06 -BCx 03/07: MRSA 1 of 2 (multiple different colonies) -Device extraction by CTS on 03/07 -Intraoperative JOSEPH 03/07: mild MR and TR, no thrombus seen on leads, calcification seen on RCC of trileaflet aortic valve. -Pacer device 03/07: NGTD -A-lead 03/07: NGTD -V -lead 03/07: NGTD -CT Head 03/08: No acute intracranial abnormality -BCx 03/08: MRSA 2 of 2 (multiple different colonies) -Urine culture 03/08: NG -BCx 03/09: GPCs 2 of 2 -BCx 03/10: GPCs in 1 of 2 -BCx 03/11 & 03/12 with NGTD -Hemodynamically stable, afebrile, no leukocytosis -Touched base with ID today regarding repeat imaging and how long they would recommend culture clearance prior to re-insertion of left sided pacemaker-they will get back to us tomorrow with their recs ID recommendations: -Continue Daptomycin 700mg Q 24 hours (anticipating 6 weeks of IV antibiotics) -Follow daily blood cultures -While on the IV antibiotics, please obtain at least a weekly cbc with diff, weekly CMP and TWICE weekly CPK -Timing of pacer replacement to be determined by culture clearance Assessment & Plan (03/11/2024 2:03 PM CDT): Recently presented to [facility] with fevers and altered mental status. 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 The patient was instructed to come to [facility]. [employer] PPM implanted 02/16/2022. -Pacemaker dependent--s/p temporary pacer placed by EP on 03/06 (will need until re-implant), s/p device extracted by CTS on 03/07 -ID consulted, discontinued vancomycin and started daptomycin -Blood cultures 02/28: MRSA 2 of 2 -Blood cultures 03/01, 03/02: NGTD -Blood cultures 03/03: MRSA 2 of 2 (multiple different colonies) -CT chest 03/03: no drainable fluid collections within the chest. 13mm ground glass nodule in the RUL that could be sequelae of infection or inflammation or adenocarcinoma spectrum lesion. Small b/l pleural effusions. -Blood cultures 03/04: MRSA 3 of 3 -Blood cultures 03/05: MRSA 1 of 2 -Blood cultures 03/06: MRSA 2 of 2 -Temporary pacer placed by EP on 03/06 -Blood cultures 03/07: MRSA 1 of 2 (multiple different colonies) -Device extraction by CTS on 03/07 -Intraoperative JOSEPH 03/07: mild MR and TR, no thrombus seen on leads, calcification seen on RCC of trileaflet aortic valve. -Pacer device 03/07: NGTD -A-lead 03/07: NGTD -V -lead 03/07: NGTD -CT Head 03/08: No acute intracranial abnormality -Blood cultures 03/08: MRSA 2 of 2 (multiple different colonies) -Urine culture 03/08: NG -Blood cultures 03/09: GPCs 2 of 2 -Blood cultures 03/10: In process ID recommendations: -Continue Daptomycin 700mg Q 24 hours (anticipating 6 weeks of IV antibiotics) -Follow daily blood cultures -While on the IV antibiotics, please obtain at least a weekly cbc with diff, weekly CMP and TWICE weekly CPK -Timing of pacer replacement to be determined by culture clearance -Urine culture with NGTD-consider stopping ceftriaxone Assessment & Plan (03/10/2024 4:52 PM CDT): Recently presented to [facility] with fevers and altered mental status. There he was found to have MRSA bacteremia and was treated for 8 days with IV abx (presumably vanc) then sent to SNF to receive further doses, however the nursing did not have the abx. The patient was instructed to come to [facility]. [employer] PPM implanted 02/16/2022. -s/p 8+ days of vanc at OSH -obtain JOSEPH images from OSH--requested multiple times--JOSEPH performed at [facility] on 03/07 during procedure -pacemaker dependent--temporary pacer placed by EP on 03/06, will need until re-implant -CTS consulted, device extraction 03/07 -ID consulted, appreciate assistance -remains hemodynamically stable -blood cultures growing MRSA -continue daily blood cultures until clear -per ID, discontinued vancomycin and started daptomycin 10mg/kg -obtain baseline CK; while on dapto will need at least a weekly CBC with diff, weekly CMP, and twice weekly CK -ID anticipating 6 weeks of IV antibiotics -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 There he was found to have MRSA bacteremia and was treated for 8 days with IV abx (presumably vanc) then sent to SNF to receive further doses, however the nursing did not have the abx. The patient was instructed to come to [facility]. [employer] PPM implanted 02/16/2022. -s/p 8+ days of vanc at OSH -obtain JOSEPH images from OSH--requested multiple times--JOSEPH performed at [facility] on 03/07 during procedure -pacemaker dependent--temporary pacer placed by EP on 03/06, will need until re-implant -CTS consulted, device extraction 03/07 -ID consulted, appreciate assistance -remains hemodynamically stable -blood cultures growing MRSA -continue daily blood cultures until clear -per ID, discontinued vancomycin and started daptomycin 10mg/kg -obtain baseline CK; while on dapto will need at least a weekly CBC with diff, weekly CMP, and twice weekly CK -ID anticipating 6 weeks of IV antibiotics -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 There he was found to have MRSA bacteremia and was treated for 8 days with IV abx (presumably vanc) then sent to SNF to receive further doses, however the nursing did not have the abx. The patient was instructed to come to [facility]. [employer] PPM implanted 02/16/2022. -s/p 8+ days of vanc at OSH -obtain JOSEPH images from OSH--requested multiple times--JOSEPH performed at [facility] on 03/07 during procedure -pacemaker dependent - temporary pacer placed by EP on 03/06, will need until re-implant -CTS consulted, device extraction 03/07 - Eliquis on hold pending CT surgery recs -ID consulted, appreciate assistance -remains hemodynamically stable -blood cultures growing MRSA -continue daily blood cultures until clear -per ID, discontinue vancomycin and start daptomycin 10mg/kg -obtain baseline CK; while on dapto will need at least a weekly CBC with diff, weekly CMP, and twice weekly CK -ID anticipating 6 weeks of IV antibiotics -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 There he was found to have MRSA bacteremia and was treated for 8 days with IV abx (presumably vanc) then sent to SNF to receive further doses, however the nursing did not have the abx.The patient was instructed to come to [facility]. [employer] PPM implanted 02/16/2022. -s/p 8+ days of vanc at OSH -remains hemodynamically stable -blood cultures growing MRSA: 02/28, 03/03, and 03/04 positive, 03/05 pending -continue daily blood cultures until clear -continue vancomycin (decreased to 1g Q24h yesterday as Vanc trough was 20.5) -obtain JOSEPH images from OSH -ID consulted, appreciate assistance -CTS consulted, device extraction today 03/07 - Eliquis on hold pending CT surgery recs -pacemaker dependent - temporary pacer placed by EP on 03/06, will need until re-implant Assessment & Plan (03/06/2024 10:06 AM CDT): Recently presented to [facility] with fevers and altered mental status. There he was found to have MRSA bacteremia and was treated for 8 days with IV abx (presumably vanc) then sent to SNF to receive further doses, however the nursing did not have the abx.The patient was instructed to come to [facility]. [employer] PPM implanted 02/16/2022. -s/p 8+ days of vanc at OSH -remains hemodynamically stable -blood cultures growing MRSA: 02/28, 03/03, and 03/04 positive, 03/05 pending -continue daily blood cultures until clear -continue vancomycin (decreased to 1g Q24h yesterday as Vanc trough was 20.5) -obtain JOSEPH images from OSH -ID consulted, appreciate assistance -CTS consulted, plan for device extraction Tuesday 03/06 - hold Eliquis and bridge with heparin (held heparin at midnight), NPO p MN -pacemaker dependent - will need temporary pacer until re-implant, to be placed by EP prior to device extraction Assessment & Plan (03/05/2024 10:52 AM CDT): Recently presented to [facility] with fevers and altered mental status. There he was found to have MRSA bacteremia and was treated for 8 days with IV abx (presumably vanc) then sent to SNF to receive further doses, however the nursing did not have the abx.The patient was instructed to come to [facility]. [employer] PPM implanted 02/16/2022. -s/p 8+ days of vanc at OSH -remains hemodynamically stable -blood cultures growing MRSA: 02/28, 03/03, and 03/04 positive, 03/05 pending -continue daily blood cultures until clear -continue vancomycin--vanc trough prior to next dose this afternoon -obtain JOSEPH images from OSH -ID consulted, appreciate assistance -CTS consulted, tentative plan for device extraction Tuesday 03/06 - hold Eliquis and bridge with heparin, NPO p MN -pacemaker dependent - will need temporary pacer until re-implant Assessment & Plan (03/04/2024 10:03 AM CDT): -Recently presented to [facility] with fevers and altered mental status. There he was found to have MRSA bacteremia and was treated for 8 days with IV abx (presumably vanc) then sent to SNF to receive further doses, however the nursing did not have the abx.The patient was instructed to come to [facility]. 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 -Appears non-toxic, hemodynamically stable -s/p 8+ days of vanc at OSH -blood cultures with MRSA -continue vancomycin--vanc trough prior to fourth dose -ID consulted, appreciate assistance -CTS consult for possible extraction--instructed 03/03 that extraction would take place 03/06>>Eliquis on hold, will D/W EP whether to bridge with Heparin -[employer] rep called to interrogate device once more and to make aware of surgery schedule for Wednesday. Rep will need to be available during procedure. -having difficulty [facility] -tele showing 100% paced, underlying rhythm afib 40's--will need temporary pacer between extraction and re-implant Assessment & Plan (03/03/2024 11:12 AM CDT): -Recently presented to [facility] with fevers and altered mental status. There he was found to have MRSA bacteremia and was treated for 8 days with IV abx (presumably vanc) then sent to SNF to receive further doses, however the nursing did not have the abx.The patient was instructed to come to [facility]. 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 -Appears non-toxic, hemodynamically stable -s/p 8+ days of vanc at OSH -blood cultures with MRSA -continue vancomycin--vanc trough prior to fourth dose -ID consulted, appreciate assistance -CTS consult for possible extraction--will need to hold eliquis when timing has been confirmed -having difficulty finding JOSEPH images in [employer] -tele showing 100% paced, underlying rhythm afib 40's--will need temporary pacer between extraction and re-implant Assessment & Plan (03/02/2024 10:28 AM CDT): -Recently presented to [facility] with fevers and altered mental status. There he was found to have MRSA bacteremia and was treated for 8 days with IV abx (presumably vanc) then sent to SNF to receive further doses, however the nursing did not have the abx.The patient was instructed to come to [facility]. 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 -Appears non-toxic, hemodynamically stable -s/p 8+ days of vanc at OSH -blood cultures with MRSA -continue vancomycin--vanc trough prior to fourth dose -ID consulted, appreciate assistance -CTS consult for possible extraction--will need to hold eliquis when timing has been confirmed -JOSEPH images in [facility] -tele showing 100% paced, underlying rhythm afib 40's--will need temporary pacer between extraction and re-implant Assessment & Plan (03/01/2024 11:38 AM CDT): -Recently presented to [facility] with fevers and altered mental status. There he was found to have MRSA bacteremia and was treated for 8 days with IV abx (presumably vanc) then sent to SNF to receive further doses, however the nursing did not have the abx.The patient was instructed to come to [facility]. 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 -Appears non-toxic, hemodynamically stable -s/p 8+ days of vanc at OSH -blood cultures with MRSA -continue Vanc/cefe for now, vanc trough prior to third dose -ID consulted, appreciate assistance -CTS consult for possible extraction--may need to hold eliquis -Will obtain JOSEPH images -tele showing 100% paced Assessment & Plan (02/29/2024 11:23 AM CDT): Awaiting medical records from [facility] and/or [facility] ([place], [place]) -[employer] pacer -blood cultures pending -EP consult pending -tele showing 100% paced Immunizations Name Administration Dates Next Due Td, adsorbed 07/14/2014 Social History Tobacco Use Types Packs/Day Years Used Date Smoking Tobacco: Former Cigarettes Q uit: 1997 Passive Smoke Exposure: Never Smokeless Tobacco: Never Tobacco Cessation:Counseling Given: Not Answered Alcohol Use Standard Drinks/Week Comments Yes 0 (1 standard drink = 0.6 oz pur e alcohol) [facility] [employer] Answer Date Recorded In the past 12 months has [employer] electric, gas, oil, or water [employer] threatened to shut off services in your home? Patient unable to answer 05/31/2024 Social Connection and Isolation Panel [NHANES] A nswer Date Recorded In a typical week, how many times do you talk on the phone with family, friends, or neighbors? Patient unable to answer 05/31/2024 How often do you get togethe r with friends or relatives? Patient unable to answer 05/31/2024 How often do you attend [facility] or protestant services? Patient unable to answer 05/31/2024 Do you belong to any clubs o r organizations such as faith groups, unions, fraternal or athletic groups, or school groups? Patient unable to answer 05/31/2024 How often do you attend meet ings of the clubs or organizations you belong to? Patient unable to answer 05/31/2024 Are you , , di vorced, , never , or living with a partner? Patient unable to answer 05/31/2024 AUDIT-C Answer Date Recorded Q1: How often do you have a drink containing alcohol? Never 03/30/2024 Q2: How many drinks containi ng alcohol do you have on a typical day when you are drinking? Patient does not drink Q3: How often do you have si x or more drinks on one occasion? Never 03/30/2024 Overall Financial Resource Strain (CARDIA) Answe r Date Recorded How hard is it for you to pa y for the very basics like food, housing, medical care, and heating? Patient unable to answer 05/31/2024 Hunger Vital Sign Answer Date Recorded Within the past 12 months, y ou worried that your food would run out before you got the money to buy more. Patient unable to answer 05/31/2024 Within the past 12 months, t he food you bought just didn't last and you didn't have money to get more. Patient unable to answer 05/31/2024 PRAPARE - Transportation Answer Date Re corded In the past 12 months, has l ack of transportation kept you from medical appointments or from getting medications? Patient unable to answer 05/31/2024 In the past 12 months, has l ack of transportation kept you from meetings, work, or from getting things needed for daily living? Patient unable to answer 05/31/2024 Housing Stability Vital Sign Answer Nabor e Recorded In the last 12 months, was t here a time when you were not able to pay the mortgage or rent on time? Patient unable to answer 05/31/2024 In the past 12 months, how m any times have you moved where you were living? 0 05/31/2024 At any time in the past 12 m [facility], were you homeless or living in a fpc (including now)? Patient unable to answer 05/31/2024 Personal Safety Answer Date Recorded Have you ever been in or are you currently in a harmful physical or emotional relationship or is someone making you feel afraid or unsafe? 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 Gender Identity Not on file Sexual Orientation Not on file Last Filed Vital Signs Vital Sign Reading Time Taken Comments Blood Pressure 94/54 05/31/2024 2:59 PM MUSIC ASSISTANT Pulse 60 05/31/2024 2:59 PM MUSIC ASSISTANT Temperature 36.6 ??C (97.9 ??F) 05/31/2024 8:18 AM CS T Respiratory Rate 18 05/31/2024 8:18 AM MUSIC ASSISTANT Oxygen Saturation 100% 05/31/2024 2:59 PM MUSIC ASSISTANT Inhaled Oxygen Concentration - - Weight 56 kg (123 lb 6.4 oz) 05/31/2024 4:48 AM MUSIC ASSISTANT Height 182.9 cm (6') 05/13/2024 2:50 AM MUSIC ASSISTANT Body Mass Index 16.74 05/13/2024 2:50 AM MUSIC ASSISTANT Plan of Treatment Not on file Medical Devices Implanted Type Area Ornamental Rail Installer Device Identifier Shelf Expiration Date Model / Serial / Lot [employer] Tendril Sts 6fr 52cm Is-1 Connector Active Fixation Bipolar Soft [id number] - [id number] - [id number] Implanted:Qty : 1 on 03/20/2024 by Franklyn Worthington MD at [facility] Lead Right: Ventricle [employer] 04/15/20262087TC/52 / [id number] / [employer] Active Fixation Steroid Eluting Latex Free Sterile Right Atrium Ventricle Ultipace 58cm [id number] - [id number] - [id number] Implanted:Qty : 1 on 03/30/2024 by Jayro Phan MD PhD at [facility] Lead Right: Ventricle [employer] 02/13/2027 [id number] / [id number] / [id number] [employer] Active Fixation Steroid Eluting Latex Free Sterile Right Atrium Ventricle Ultipace 52cm [id number]/52 - [id number] - [id number] Implanted:Qty : 1 on 03/30/2024 by Jayro Phan MD PhD at [facility] Lead Right: [employer] 01/14/2027 [id number] / [id number] / [employer] Assurity Mri [id number] 1 Chamber Is-1 Connector Thk6mm Pacemaker [id number] - [id number] - [id number] Implanted:Qty : 1 on 03/20/2024 by Franklyn Worthington MD at [facility] Pacemaker [employer] 07/14/2025 [id number] / [id number] / [employer] Assurity Mri [id number] 2 Chamber Is-1 Connector Thk6mm Pacemaker [id number] - [id number] - [id number] Implanted:Qty : 1 on 03/30/2024 by Jayro Phan MD PhD at [facility] Pacemaker Left: Chest Wall [employer] 07/14/2025 [id number] / [id number] / Explanted Type Area Ornamental Rail Installer Device Identifier Shelf Expiration Date Model / Serial / Lot [employer] Tendril Sts 6fr 46cm Is-1 Connector Bipolar Active Fixation 46 - [id number] - [id number] Implanted:Qty : 1 on 02/16/2022 by Shane Alfredo MD at [facility] Explanted:Qty : 1 on 03/07/2024 by Leland Fitzpatrick MD at [facility] Lead Right: Atria [employer] 12/14/202446 / [id number] / [id number] [employer] Tendril Sts 6fr 52cm Is-1 Connector Active Fixation Bipolar Soft - [id number] - [id number] Implanted:Qty : 1 on 02/16/2022 by Shane Alfredo MD at [facility] Explanted:Qty : 1 on 03/07/2024 by Leland Fitzpatrick MD at [facility] Lead Right: Ventricle [employer] 12/14/202452 / [id number] / [id number] [employer] Tendril Sts 6fr 65cm Is-1 Bipolar Connector Optim Insulation - [id number] - [id number] Implanted:Qty : 1 on 03/06/2024 by Deedee Bran MD at [facility] Explanted:Qty : 1 on 03/07/2024 by Leland Fitzpatrick MD at [facility] Lead Right: Ventricle [employer] 04/15/2026 / [id number] / [id number] [employer] Assurity Mri [id number] Chamber Is-1 Connector Thk6mm Pacemaker [id number] - [id number] - [id number] Implanted:Qty : 1 on 02/16/2022 by Shane Alfredo MD at [facility] Explanted:Qty : 1 on 03/07/2024 by Leland Fitzpatrick MD at [facility] Pacemaker Right: Chest Wall [employer] 07/15/2023 [id number] / [id number] / [id number] Procedures Procedure Name Priority Date/Time Associated Diagnosis Comments SCAN - LABS 06/05/2024 8:43 AM MUSIC ASSISTANT EGFR Routine 05/31/2024 5:13 AM MUSIC ASSISTANT DIFFERENTIAL AUTO Routine 05/31/2024 5:1 3 AM MUSIC ASSISTANT COMPREHENSIVE METABOLIC PANEL Routine 05/31/2024 5:13 AM MUSIC ASSISTANT CBC WITH AUTO DIFFERENTIAL Routine 05/31/2024 5:13 AM MUSIC ASSISTANT CBC WITHOUT DIFFERENTIAL Timed 05/29/2024 6:59 PM MUSIC ASSISTANT CREATINE KINASE (CK), TOTAL Timed 05/28/2024 8:41 PM MUSIC ASSISTANT EGFR Routine 05/26/2024 10:21 PM MUSIC ASSISTANT DIFFERENTIAL AUTO Routine 05/26/2024 10:21 PM MUSIC ASSISTANT CBC WITH AUTO DIFFERENTIAL Routine 05/26/2024 10:21 PM MUSIC ASSISTANT MAGNESIUM Routine 05/26/2024 10:21 PM MUSIC ASSISTANT COMPREHENSIVE METABOLIC PANEL Routine 05/26/2024 10:21 PM MUSIC ASSISTANT EGFR Routine 05/25/2024 9:24 PM MUSIC ASSISTANT DIFFERENTIAL AUTO Routine 05/25/2024 9:2 4 PM MUSIC ASSISTANT CREATINE KINASE (CK), TOTAL Timed 05/25/2024 9:24 PM MUSIC ASSISTANT CBC WITH AUTO DIFFERENTIAL Routine 05/25/2024 9:24 PM MUSIC ASSISTANT MAGNESIUM Routine 05/25/2024 9:24 PM MUSIC ASSISTANT COMPREHENSIVE METABOLIC PANEL Routine 05/25/2024 9:24 PM MUSIC ASSISTANT EGFR Routine 05/24/2024 8:43 PM MUSIC ASSISTANT DIFFERENTIAL AUTO Routine 05/24/2024 8:4 3 PM MUSIC ASSISTANT CBC WITH AUTO DIFFERENTIAL Routine 05/24/2024 8:43 PM MUSIC ASSISTANT MAGNESIUM Routine 05/24/2024 8:43 PM MUSIC ASSISTANT COMPREHENSIVE METABOLIC PANEL Routine 05/24/2024 8:43 PM MUSIC ASSISTANT EGFR Routine 05/23/2024 9:27 PM MUSIC ASSISTANT DIFFERENTIAL AUTO Routine 05/23/2024 9:2 7 PM MUSIC ASSISTANT CBC WITH AUTO DIFFERENTIAL Routine 05/23/2024 9:27 PM MUSIC ASSISTANT MAGNESIUM Routine 05/23/2024 9:27 PM MUSIC ASSISTANT COMPREHENSIVE METABOLIC PANEL Routine 05/23/2024 9:27 PM MUSIC ASSISTANT EGFR Routine 05/22/2024 8:31 PM MUSIC ASSISTANT CREATINE KINASE (CK), TOTAL Routine 05/22/2024 8:31 PM MUSIC ASSISTANT DIFFERENTIAL AUTO Routine 05/22/2024 8:3 1 PM MUSIC ASSISTANT CBC WITH AUTO DIFFERENTIAL Routine 05/22/2024 8:31 PM MUSIC ASSISTANT MAGNESIUM Routine 05/22/2024 8:31 PM MUSIC ASSISTANT COMPREHENSIVE METABOLIC PANEL Routine 05/22/2024 8:31 PM MUSIC ASSISTANT EGFR Routine 05/21/2024 8:10 PM MUSIC ASSISTANT DIFFERENTIAL AUTO Routine 05/21/2024 8:1 0 PM MUSIC ASSISTANT CBC WITH AUTO DIFFERENTIAL Routine 05/21/2024 8:10 PM MUSIC ASSISTANT MAGNESIUM Routine 05/21/2024 8:10 PM MUSIC ASSISTANT COMPREHENSIVE METABOLIC PANEL Routine 05/21/2024 8:10 PM MUSIC ASSISTANT EGFR Routine 05/20/2024 8:16 PM MUSIC ASSISTANT DIFFERENTIAL AUTO Routine 05/20/2024 8:1 6 PM MUSIC ASSISTANT CBC WITH AUTO DIFFERENTIAL Routine 05/20/2024 8:16 PM MUSIC ASSISTANT MAGNESIUM Routine 05/20/2024 8:16 PM MUSIC ASSISTANT COMPREHENSIVE METABOLIC PANEL Routine 05/20/2024 8:16 PM MUSIC ASSISTANT CREATINE KINASE (CK), TOTAL Routine 05/19/2024 8:19 PM MUSIC ASSISTANT EGFR Routine 05/19/2024 8:19 PM MUSIC ASSISTANT DIFFERENTIAL AUTO Routine 05/19/2024 8:1 9 PM MUSIC ASSISTANT CBC WITH AUTO DIFFERENTIAL Routine 05/19/2024 8:19 PM MUSIC ASSISTANT MAGNESIUM Routine 05/19/2024 8:19 PM MUSIC ASSISTANT COMPREHENSIVE METABOLIC PANEL Routine 05/19/2024 8:19 PM MUSIC ASSISTANT XR CHEST 1 VIEW IP Routine 05/19/2024 4:57 PM MUSIC ASSISTANT EGFR Routine 05/18/2024 10:09 PM MUSIC ASSISTANT DIFFERENTIAL AUTO Routine 05/18/2024 10:09 PM MUSIC ASSISTANT CBC WITH AUTO DIFFERENTIAL Routine 05/18/2024 10:09 PM MUSIC ASSISTANT MAGNESIUM Routine 05/18/2024 10:09 PM MUSIC ASSISTANT COMPREHENSIVE METABOLIC PANEL Routine 05/18/2024 10:09 PM MUSIC ASSISTANT PET/CT FDG SKULL TO THIGH ED Urgent/IP Urgent 05/18/2024 10:21 AM MUSIC ASSISTANT EGFR Routine 05/17/2024 9:34 PM MUSIC ASSISTANT DIFFERENTIAL AUTO Routine 05/17/2024 9:3 4 PM MUSIC ASSISTANT CBC WITH AUTO DIFFERENTIAL Routine 05/17/2024 9:34 PM MUSIC ASSISTANT MAGNESIUM Routine 05/17/2024 9:34 PM MUSIC ASSISTANT COMPREHENSIVE METABOLIC PANEL Routine 05/17/2024 9:34 PM MUSIC ASSISTANT EGFR Routine 05/16/2024 10:50 PM MUSIC ASSISTANT DIFFERENTIAL AUTO Routine 05/16/2024 10:50 PM MUSIC ASSISTANT CREATINE KINASE (CK), TOTAL Timed 05/16/2024 10:50 PM MUSIC ASSISTANT CBC WITH AUTO DIFFERENTIAL Routine 05/16/2024 10:50 PM MUSIC ASSISTANT MAGNESIUM Routine 05/16/2024 10:50 PM MUSIC ASSISTANT COMPREHENSIVE METABOLIC PANEL Routine 05/16/2024 10:50 PM MUSIC ASSISTANT TRANSTHORACIC ECHO (TTE) COMPLETE W DOPPLER/CF W CONTRAST Routine 05/16/2024 11:47 AM MUSIC ASSISTANT EGFR Routine 05/15/2024 9:39 PM MUSIC ASSISTANT DIFFERENTIAL AUTO Routine 05/15/2024 9:3 9 PM MUSIC ASSISTANT CBC WITH AUTO DIFFERENTIAL Routine 05/15/2024 9:39 PM MUSIC ASSISTANT MAGNESIUM Routine 05/15/2024 9:39 PM MUSIC ASSISTANT COMPREHENSIVE METABOLIC PANEL Routine 05/15/2024 9:39 PM MUSIC ASSISTANT EGFR Routine 05/14/2024 10:49 PM MUSIC ASSISTANT DIFFERENTIAL AUTO Routine 05/14/2024 10:49 PM MUSIC ASSISTANT CBC WITH AUTO DIFFERENTIAL Routine 05/14/2024 10:49 PM MUSIC ASSISTANT MAGNESIUM Routine 05/14/2024 10:49 PM MUSIC ASSISTANT COMPREHENSIVE METABOLIC PANEL Routine 05/14/2024 10:49 PM MUSIC ASSISTANT POCT GLUCOSE DEVICE Routine 05/14/2024 12:18 PM MUSIC ASSISTANT BLOOD CULTURE Routine 05/14/2024 9:52 AM MUSIC ASSISTANT BLOOD CULTURE Routine 05/14/2024 9:52 AM MUSIC ASSISTANT EGFR Routine 05/13/2024 9:09 PM MUSIC ASSISTANT DIFFERENTIAL AUTO Routine 05/13/2024 9:0 9 PM MUSIC ASSISTANT CBC WITH AUTO DIFFERENTIAL Routine 05/13/2024 9:09 PM MUSIC ASSISTANT MAGNESIUM Routine 05/13/2024 9:09 PM MUSIC ASSISTANT COMPREHENSIVE METABOLIC PANEL Routine 05/13/2024 9:[address] HEAD WO CONTRAST IP Routine 05/13/2024 8 :04 PM MUSIC ASSISTANT XR CHEST PA LATERAL 2 VIEWS IP Routine 05/13/2024 8:30 AM MUSIC ASSISTANT EGFR Routine 05/13/2024 4:41 AM MUSIC ASSISTANT DIFFERENTIAL AUTO Routine 05/13/2024 4:4 1 AM MUSIC ASSISTANT CREATINE KINASE (CK), TOTAL Timed 05/13/2024 4:41 AM MUSIC ASSISTANT TYPE AND SCREEN Timed 05/13/2024 4:41 AM MUSIC ASSISTANT CBC WITH AUTO DIFFERENTIAL Routine 05/13/2024 4:41 AM MUSIC ASSISTANT MAGNESIUM Routine 05/13/2024 4:41 AM MUSIC ASSISTANT COMPREHENSIVE METABOLIC PANEL Routine 05/13/2024 4:41 AM MUSIC ASSISTANT BLOOD CULTURE Routine 05/13/2024 4:41 AM MUSIC ASSISTANT BLOOD CULTURE Routine 05/13/2024 4:41 AM MUSIC ASSISTANT ECG 12-LEAD Routine 05/13/2024 3:49 AM MUSIC ASSISTANT SCAN - RADIOLOGY/IMAGING 05/12/2024 11:04 AM MUSIC ASSISTANT CARDIOLOGY DOCUMENT SCAN 05/08/2024 3:35 PM MUSIC ASSISTANT SCAN - RADIOLOGY/IMAGING 05/08/2024 6:27 AM MUSIC ASSISTANT SCAN - RADIOLOGY/IMAGING 05/06/2024 4:44 PM MUSIC ASSISTANT CARDIOLOGY DOCUMENT SCAN Routine 05/05/2024 1:20 PM MUSIC ASSISTANT SCAN - RADIOLOGY/IMAGING 05/05/2024 11:06 AM MUSIC ASSISTANT SCAN - LABS 05/04/2024 6:06 PM MUSIC ASSISTANT SCAN - RADIOLOGY/IMAGING 05/04/2024 5:26 PM MUSIC ASSISTANT SCAN - LABS 05/04/2024 4:59 PM MUSIC ASSISTANT DEVICE CHECK - IN OFFICE Routine 04/18/2024 11:07 AM MUSIC ASSISTANT Fitting or adjustment of cardiac pacemaker CBC WITH AUTO DIFFERENTIAL Timed 04/05/2024 2:33 AM MUSIC ASSISTANT DIFFERENTIAL AUTO Timed 04/05/2024 2:3 3 AM MUSIC ASSISTANT EGFR Routine 04/05/2024 2:33 AM MUSIC ASSISTANT HEPATIC FUNCTION PANEL Timed 2:33 AM MUSIC ASSISTANT CREATINE KINASE (CK), TOTAL Timed 04/05/2024 2:33 AM MUSIC ASSISTANT CBC WITHOUT DIFFERENTIAL Timed 04/05/2024 2:33 AM MUSIC ASSISTANT BASIC METABOLIC PANEL Routine 04/05/2024 2:33 AM MUSIC ASSISTANT EGFR Routine 04/04/2024 4:18 AM MUSIC ASSISTANT BASIC METABOLIC PANEL Routine 04/04/2024 4:18 AM MUSIC ASSISTANT EGFR Routine 04/03/2024 6:01 AM MUSIC ASSISTANT CBC WITHOUT DIFFERENTIAL Timed 04/03/2024 6:01 AM MUSIC ASSISTANT BASIC METABOLIC PANEL Routine 04/03/2024 6:01 AM MUSIC ASSISTANT EGFR Routine 04/02/2024 3:56 AM MUSIC ASSISTANT BASIC METABOLIC PANEL Routine 04/02/2024 3:56 AM MUSIC ASSISTANT EGFR Routine 04/01/2024 3:30 AM MUSIC ASSISTANT BASIC METABOLIC PANEL Routine 04/01/2024 3:30 AM MUSIC ASSISTANT XR CHEST PA LATERAL 2 VIEWS IP Routine 03/31/2024 3:37 PM MUSIC ASSISTANT CBC WITHOUT DIFFERENTIAL STAT 03/31/2024 9:09 AM MUSIC ASSISTANT EGFR Routine 03/31/2024 4:41 AM MUSIC ASSISTANT CBC WITHOUT DIFFERENTIAL Timed 03/31/2024 4:41 AM MUSIC ASSISTANT BASIC METABOLIC PANEL Routine 03/31/2024 4:41 AM MUSIC ASSISTANT ECG 12-LEAD Routine 03/31/2024 1:44 AM MUSIC ASSISTANT CENTRAL LINE PLACEMENT > 5 YEARS IP Routine 03/30/2024 3:58 PM MUSIC ASSISTANT XR CHEST 1 VIEW IP Routine 03/30/2024 11:43 AM MUSIC ASSISTANT REMOVE/EXTRACT ONE PACEMAKER LEAD Routine 03/30/2024 10:57 AM MUSIC ASSISTANT Bradycardia IMPLANT DUAL CHAMBER PPM SYSTEM W/ DUAL ELECTRODES (GEN AND LEADS, NEW OR REPLACE) Routine 03/30/2024 10:57 AM MUSIC ASSISTANT Bradycardia EGFR Routine 03/30/2024 3:36 AM MUSIC ASSISTANT BASIC METABOLIC PANEL Routine 03/30/2024 3:36 AM MUSIC ASSISTANT BASIC METABOLIC PANEL Timed 03/29/2024 3:21 AM MUSIC ASSISTANT EGFR Timed 03/29/2024 3:21 AM MUSIC ASSISTANT HEPATIC FUNCTION PANEL Timed 3:21 AM MUSIC ASSISTANT CREATINE KINASE (CK), TOTAL Timed 03/29/2024 3:21 AM MUSIC ASSISTANT CBC WITHOUT DIFFERENTIAL Timed 03/29/2024 3:21 AM MUSIC ASSISTANT EGFR Routine 03/28/2024 3:21 AM MUSIC ASSISTANT BASIC METABOLIC PANEL Routine 03/28/2024 3:21 AM MUSIC ASSISTANT EGFR Routine 03/27/2024 4:53 AM MUSIC ASSISTANT CBC WITHOUT DIFFERENTIAL Timed 03/27/2024 4:53 AM MUSIC ASSISTANT BASIC METABOLIC PANEL Routine 03/27/2024 4:53 AM MUSIC ASSISTANT EGFR Routine 03/26/2024 5:54 AM MUSIC ASSISTANT BASIC METABOLIC PANEL Routine 03/26/2024 5:54 AM MUSIC ASSISTANT POCT GLUCOSE DEVICE Routine 03/25/2024 5 :02 PM MUSIC ASSISTANT POCT GLUCOSE DEVICE Routine 03/25/2024 7 :18 AM MUSIC ASSISTANT EGFR Routine 03/25/2024 5:24 AM MUSIC ASSISTANT BASIC METABOLIC PANEL Routine 03/25/2024 5:24 AM MUSIC ASSISTANT CBC WITH AUTO DIFFERENTIAL Timed 03/24/2024 3:36 AM MUSIC ASSISTANT DIFFERENTIAL AUTO Timed 03/24/2024 3:36 AM MUSIC ASSISTANT EGFR Routine 03/24/2024 3:36 AM MUSIC ASSISTANT CBC WITHOUT DIFFERENTIAL Timed 03/24/2024 3:36 AM MUSIC ASSISTANT BASIC METABOLIC PANEL Routine 03/24/2024 3:36 AM MUSIC ASSISTANT EGFR Routine 03/23/2024 5:03 AM MUSIC ASSISTANT BASIC METABOLIC PANEL Routine 03/23/2024 5:03 AM MUSIC ASSISTANT HEPATIC FUNCTION PANEL Timed 5:00 AM MUSIC ASSISTANT CREATINE KINASE (CK), TOTAL Timed 03/22/2024 5:00 AM MUSIC ASSISTANT CBC WITHOUT DIFFERENTIAL Timed 03/22/2024 5:00 AM MUSIC ASSISTANT XR CHEST 1 VIEW IP Routine 03/21/2024 5:03 AM MUSIC ASSISTANT EGFR Routine 03/21/2024 3:34 AM MUSIC ASSISTANT CBC WITHOUT DIFFERENTIAL Routine 03/21/2024 3:34 AM MUSIC ASSISTANT BASIC METABOLIC PANEL Routine 03/21/2024 3:34 AM MUSIC ASSISTANT BLOOD CULTURE Routine 03/21/2024 3:34 AM MUSIC ASSISTANT BLOOD CULTURE Routine 03/21/2024 3:34 AM MUSIC ASSISTANT TEMPOARY PACING INSERT/REPLACE LEAD Routine 03/20/2024 2:40 PM MUSIC ASSISTANT CAD (coronary artery disease) Atrial fibrillation (CMS/HCC) (HCC) EGFR Routine 03/20/2024 3:17 AM MUSIC ASSISTANT CREATINE KINASE (CK), TOTAL Routine 03/20/2024 3:17 AM MUSIC ASSISTANT CBC WITHOUT DIFFERENTIAL Routine 03/20/2024 3:17 AM MUSIC ASSISTANT BASIC METABOLIC PANEL Routine 03/20/2024 3:17 AM MUSIC ASSISTANT BLOOD CULTURE Routine 03/20/2024 3:17 AM MUSIC ASSISTANT BLOOD CULTURE Routine 03/20/2024 3:17 AM MUSIC ASSISTANT EGFR Routine 03/19/2024 3:35 AM MUSIC ASSISTANT CBC WITHOUT DIFFERENTIAL Routine 03/19/2024 3:35 AM MUSIC ASSISTANT BASIC METABOLIC PANEL Routine 03/19/2024 3:35 AM MUSIC ASSISTANT BLOOD CULTURE Routine 03/19/2024 3:35 AM MUSIC ASSISTANT BLOOD CULTURE Routine 03/19/2024 3:35 AM MUSIC ASSISTANT EGFR Timed 03/18/2024 1:36 PM CDT POTASSIUM, WHOLE BLOOD Timed 1:36 PM CDT BASIC METABOLIC PANEL Timed 03/18/2024 1:36 PM CDT EGFR Routine 03/18/2024 3:55 AM CDT CBC WITHOUT DIFFERENTIAL Routine 03/18/2024 3:55 AM CDT BASIC METABOLIC PANEL Routine 03/18/2024 3:55 AM CDT BLOOD CULTURE Routine 03/18/2024 3:55 AM CDT BLOOD CULTURE Routine 03/18/2024 3:55 AM CDT TRANSESOPHAGEAL ECHO (JOSEPH) W DOPPLER/CF WO CONTRAST Routine 03/17/2024 2:01 PM CDT EGFR Routine 03/17/2024 3:48 AM CDT CBC WITHOUT DIFFERENTIAL Routine 03/17/2024 3:48 AM CDT BASIC METABOLIC PANEL Routine 03/17/2024 3:48 AM CDT BLOOD CULTURE Routine 03/17/2024 3:48 AM CDT BLOOD CULTURE Routine 03/17/2024 3:48 AM CDT HEPATIC FUNCTION PANEL Routine 3:16 AM CDT EGFR Routine 03/16/2024 3:16 AM CDT CREATINE KINASE (CK), TOTAL Routine 03/16/2024 3:16 AM CDT CBC WITHOUT DIFFERENTIAL Routine 03/16/2024 3:16 AM CDT BASIC METABOLIC PANEL Routine 03/16/2024 3:16 AM CDT BLOOD CULTURE Routine 03/16/2024 3:16 AM CDT BLOOD CULTURE Routine 03/16/2024 3:16 AM CDT XR ORTHOPANTOGRAM/PANOREX IP Routine 03/15/2024 4:44 PM CDT HEPATIC FUNCTION PANEL Routine 4:28 AM CDT CBC WITH AUTO DIFFERENTIAL Routine 03/15/2024 4:28 AM CDT DIFFERENTIAL AUTO Routine 03/15/2024 4:2 8 AM CDT EGFR Routine 03/15/2024 4:28 AM CDT CBC WITHOUT DIFFERENTIAL Routine 03/15/2024 4:28 AM CDT BASIC METABOLIC PANEL Routine 03/15/2024 4:28 AM CDT BLOOD CULTURE Routine 03/15/2024 4:28 AM CDT BLOOD CULTURE Routine 03/15/2024 4:28 AM CDT EGFR Routine 03/14/2024 4:01 AM CDT CBC WITHOUT DIFFERENTIAL Routine 03/14/2024 4:01 AM CDT BASIC METABOLIC PANEL Routine 03/14/2024 4:01 AM CDT BLOOD CULTURE Routine 03/14/2024 4:01 AM CDT BLOOD CULTURE Routine 03/14/2024 4:01 AM CDT EGFR Routine 03/13/2024 4:10 AM CDT CREATINE KINASE (CK), TOTAL Routine 03/13/2024 4:10 AM CDT CBC WITHOUT DIFFERENTIAL Routine 03/13/2024 4:10 AM CDT BASIC METABOLIC PANEL Routine 03/13/2024 4:10 AM CDT BLOOD CULTURE Routine 03/13/2024 4:10 AM CDT BLOOD CULTURE Routine 03/13/2024 4:10 AM CDT EGFR Routine 03/12/2024 5:37 AM CDT CBC WITHOUT DIFFERENTIAL Routine 03/12/2024 5:37 AM CDT BASIC METABOLIC PANEL Routine 03/12/2024 5:37 AM CDT BLOOD CULTURE Routine 03/12/2024 5:37 AM CDT BLOOD CULTURE Routine 03/12/2024 5:37 AM CDT from Last 3 Months Results * SCAN - LABS (06/05/2024 8:43 AM MUSIC ASSISTANT) us Provider Scanning Final Result * eGFR (05/31/2024 5:13 AM MUSIC ASSISTANT) eGFR 64 >=60 mL/min/1. 73 m2 Comment: Interpretive Data Reference Interval Normal ?>/= 90 mL/min/1.73m2 Mildly decreased* ? 60 - 89 mL/min/1.73m2 Mildly to moderately decreased ?45 - 59 mL/min/1.73m2 Moderately to severely decreased ??30 - 44 mL/min/1.73m2 Severely decreased ?15 - 29 mL/min/1.73m2 Kidney Failure ?< 15 ??mL/min/1.73m2 *Relative to young adult level Estimated glomerular filtration rate is determined by the 2020 CKD-EPI equation recommended by the National Kid[employer] (A Unifying Approach to GFR Estimation: Recommendations of the NKF-ASK Task Force on Reassessing the Inclusion of Race in Diagnosing Kidney Disease, JASN 202). The CKD-EPI equation should not be used for patients with unstable renal function and has not been validated in children and those over 70. Current interpretive data was last reviewed 2021. Blood 05/31/2024 5:13 AM MUSIC ASSISTANT 05/31/2024 6:26 AM MUSIC ASSISTANT us Henok Miller MD LAB BLOOD ORDERABLES Final Result [facility] Department [place] [address] * Differential, auto (05/31/2024 5:13 AM MUSIC ASSISTANT) Neutrophil abs 3.0 1.5 - 6.5 K/cumm Imm gran abs 0.0 0.0 - 0.1 K/cumm [facility] Lymphocyte abs 1.4 0.8 - 3.3 K/cumm [facility] Monocyte abs 0.7 0.2 - 0.8 K/cumm [facility] Eosinophil abs 0.3 0.0 - 0.5 K/cumm [facility] Basophil abs 0.0 0.0 - 0.1 K/cumm [facility] Neutrophil pct 55.2 % [facility] Comment: Interpretive Data Percent cell count reference ranges are not reported, since discordance with absolute values may lead to misinterpretation of CBC data. Current Interpretive Data was last revised on 2017. Imm gran pct 0.6 % [facility] Comment: Interpretive Data Percent cell count reference ranges are not reported, since discordance with absolute values may lead to misinterpretation of CBC data. Current Interpretive Data was last revised on 2017. Lymphocyte pct 25.4 % [facility] Comment: Interpretive Data Percent cell count reference ranges are not reported, since discordance with absolute values may lead to misinterpretation of CBC data. Current Interpretive Data was last revised on 2017. Monocyte pct 13.2 % [facility] Comment: Interpretive Data Percent cell count reference ranges are not reported, since discordance with absolute values may lead to misinterpretation of CBC data. Current Interpretive Data was last revised on 2017. Eosinophil pct 5.2 % [facility] Comment: Interpretive Data Percent cell count reference ranges are not reported, since discordance with absolute values may lead to misinterpretation of CBC data. Current Interpretive Data was last revised on 2017. Basophil pct 0.4 % [facility] Comment: Interpretive Data Percent cell count reference ranges are not reported, since discordance with absolute values may lead to misinterpretation of CBC data. Current Interpretive Data was last revised on 2017. Blood 05/31/2024 5:13 AM MUSIC ASSISTANT 05/31/2024 6:26 AM MUSIC ASSISTANT us Henok Miller MD LAB BLOOD ORDERABLES Final Result [facility] Department [place] [address] * (ABNORMAL) CBC with auto differential (05/31/2024 5:13 AM MUSIC ASSISTANT) WBC 5.4 3.8 - 9.9 K/cumm Hgb 8.6(L) 13.0 - 17.5 g/dL [facility] Hct 27.9(L) 38.9 - 50.3 % [facility] Plt 109(L) 150 - 400 K/cumm [facility] MPV 12.2 9.1 - 12.3 fL [facility] RBC 3.28(L) 4.30 - 5.80 M/cumm [facility] MCV 85.1 81.3 - 96.4 fL [facility] MCH 26.2(L) 27.1 - 33.3 pg [facility] MCHC 30.8(L) 32.3 - 35.7 g/dL [facility] RDW CV 15.4(H) 11.1 - 14.9 % [facility] RDW SD 48.4(H) 35.7 - 48.1 fL [facility] NRBC abs 0.00 0.00 - 0.01 K/cumm [facility] Blood 05/31/2024 5:13 AM MUSIC ASSISTANT 05/31/2024 6:26 AM MUSIC ASSISTANT Henok Miller MD LAB BLOOD ORDERABLES Final Result [facility] Department [place] [address] * (ABNORMAL) Comprehensive metabolic panel (05/31/2024 5:13 AM MUSIC ASSISTANT) Sodium 141 135 - 145 mmol/L Potassium, pl 4.1 3.3 - 4.9 mmol/L [facility] Chloride 109 97 - 110 mmol/L [facility] CO2 26 22 - 32 mmol/L [facility] Anion gap 6 2 - 15 mmol/L [facility] BUN 17 6 - 25 mg/dL [facility] Creatinine 1.13 0.80 - 1.30 mg/dL [facility] Glucose 75 70 - 199 mg/dL [facility] Comment: Interpretive Data Fasting glucose >/= 126 mg/dl is diagnostic for diabetes. ?? Fasting is defined as no caloric intake for at least 8 hours. Fasting glucose between 100 mg/dl to 125 mg/dl is diagnostic of prediabetes. In a patient with classic symptoms of hyperglycemia or hyperglycemic crisis, a random glucose >/= 200 mg/dl is diagnostic for diabetes. In the absence of unequivocal hyperglycemia, results should be confirmed by repeat testing. The classification and Diagnosis of Diabetes Diabetes Care 202; 46: S19-S40. Current interpretive data was last revised 2022. Calcium 8.4(L) 8.5 - 10.3 mg/dL [facility] Bilirubin, total 0.3 0.1 - 1.2 mg/dL [facility] Protein, pl 6.5 6.5 - 8.5 g/dL [facility] Albumin 2.9(L) 3.5 - 5.0 g/dL [facility] Alk phos 68 40 - 130 Units/L [facility] ALT 13 7 - 55 Units/L [facility] AST 21 10 - 50 Units/L [facility] Blood 05/31/2024 5:13 AM MUSIC ASSISTANT 05/31/2024 6:26 AM MUSIC ASSISTANT us Henok Miller MD LAB BLOOD ORDERABLES Final Result Performing Organization Address [facility] Co de Phone Number [facility] Department [place] [address] * (ABNORMAL) CBC without differential (05/29/2024 6:59 PM MUSIC ASSISTANT) [facility] WBC 4.9 3.8 - 9.9 K/cumm Hgb 8.4(L) 13.0 - 17.5 g/dL [facility] Hct 26.4(L) 38.9 - 50.3 % [facility] Plt 98(L) 150 - 400 K/cumm [facility] MPV 11.9 9.1 - 12.3 fL [facility] RBC 3.10(L) 4.30 - 5.80 M/cumm [facility] MCV 85.2 81.3 - 96.4 fL [facility] MCH 27.1 27.1 - 33.3 pg [facility] MCHC 31.8(L) 32.3 - 35.7 g/dL [facility] RDW CV 15.6(H) 11.1 - 14.9 % [facility] RDW SD 48.3(H) 35.7 - 48.1 fL [facility] NRBC abs 0.00 0.00 - 0.01 K/cumm [facility] Blood 05/29/2024 6:59 PM MUSIC ASSISTANT 05/29/2024 8:18 PM MUSIC ASSISTANT us Marysol Yeung MD LAB BLOOD ORDERABLES Final Resu lt [facility] Department [place] [address] * (ABNORMAL) Creatine kinase (CK), total (05/28/2024 8:41 PM MUSIC ASSISTANT) CK 22(L) 40 - 300 Units/L Blood 05/28/2024 8:41 PM MUSIC ASSISTANT 05/28/2024 9:23 PM MUSIC ASSISTANT us Sandip Juarez MD LAB BLOOD ORDERABLES Final Result [facility] Department [place] [address] * (ABNORMAL) eGFR (05/26/2024 10:21 PM MUSIC ASSISTANT) eGFR 56(L) >=60 mL/min/1. 73 m2 Comment: Interpretive Data Reference Interval Normal ?>/= 90 mL/min/1.73m2 Mildly decreased* ? 60 - 89 mL/min/1.73m2 Mildly to moderately decreased ?45 - 59 mL/min/1.73m2 Moderately to severely decreased ??30 - 44 mL/min/1.73m2 Severely decreased ?15 - 29 mL/min/1.73m2 Kidney Failure ?< 15 ??mL/min/1.73m2 *Relative to young adult level Estimated glomerular filtration rate is determined by the 2020 CKD-EPI equation recommended by the [employer] (A Unifying Approach to GFR Estimation: Recommendations of the NKF-ASK Task Force on Reassessing the Inclusion of Race in Diagnosing Kidney Disease, JASN 2020). The CKD-EPI equation should not be used for patients with unstable renal function and has not been validated in children and those over 70. Current interpretive data was last reviewed 2021. Blood 05/26/2024 10:2 1 PM MUSIC ASSISTANT 05/26/2024 11:20 PM MUSIC ASSISTANT us Tashi Thurston MD LAB BLOOD ORDERABLES Final R esult [facility] [address] [facility] Department [place] [address] * Differential, auto (05/26/2024 10:21 PM MUSIC ASSISTANT) Neutrophil abs 4.7 1.5 - 6.5 K/cumm Imm gran abs 0.1 0.0 - 0.1 K/cumm [facility] Lymphocyte abs 0.8 0.8 - 3.3 K/[facility]umm [facility] Monocyte abs 0.7 0.2 - 0.8 K/cumm [facility] Eosinophil abs 0.1 0.0 - 0.5 K/cumm [facility] Basophil abs 0.0 0.0 - 0.1 K/cumm [facility] Neutrophil pct 74.0 % [facility] Comment: Interpretive Data Percent cell count reference ranges are not reported, since discordance with absolute values may lead to misinterpretation of CBC data. Current Interpretive Data was last revised on 2017. Imm gran pct 0.8 % [facility] Comment: Interpretive Data Percent cell count reference ranges are not reported, since discordance with absolute values may lead to misinterpretation of CBC data. Current Interpretive Data was last revised on 2017. Lymphocyte pct 12.7 % [facility] Comment: Interpretive Data Percent cell count reference ranges are not reported, since discordance with absolute values may lead to misinterpretation of CBC data. Current Interpretive Data was last revised on 2017. Monocyte pct 11.3 % [facility] Comment: Interpretive Data Percent cell count reference ranges are not reported, since discordance with absolute values may lead to misinterpretation of CBC data. Current Interpretive Data was last revised on 2017. Eosinophil pct 1.0 % [facility] Comment: Interpretive Data Percent cell count reference ranges are not reported, since discordance with absolute values may lead to misinterpretation of CBC data. Current Interpretive Data was last revised on 2017. Basophil pct 0.2 % [facility] Comment: Interpretive Data Percent cell count reference ranges are not reported, since discordance with absolute values may lead to misinterpretation of CBC data. Current Interpretive Data was last revised on 2017. Blood 05/26/2024 10:2 1 PM MUSIC ASSISTANT 05/26/2024 11:20 PM MUSIC ASSISTANT us Tashi Thurston MD LAB BLOOD ORDERABLES Final R esult Performing Organization Address City/[facility]/ZIP Co de Phone Number [facility] [place] [address] * (ABNORMAL) CBC with auto differential (05/26/2024 10:21 PM MUSIC ASSISTANT) WBC 6.3 3.8 - 9.9 K/cumm Hgb 8.7(L) 13.0 - 17.5 g/dL [facility] Hct 27.4(L) 38.9 - 50.3 % [facility] Plt 113(L) 150 - 400 K/cumm [facility] MPV 11.8 9.1 - 12.3 fL [facility] RBC 3.20(L) 4.30 - 5.80 M/cumm [facility] MCV 85.6 81.3 - 96.4 fL [facility] MCH 27.2 27.1 - 33.3 pg [facility] MCHC 31.8(L) 32.3 - 35.7 g/dL [facility] RDW CV 15.7(H) 11.1 - 14.9 % [facility] RDW SD 49.6(H) 35.7 - 48.1 fL [facility] NRBC abs 0.00 0.00 - 0.01 K/cumm [facility] Blood 05/26/2024 10:2 1 PM MUSIC ASSISTANT 05/26/2024 11:20 PM MUSIC ASSISTANT us Tashi Thurston MD LAB BLOOD ORDERABLES Final R esult Performing Organization Address City/[facility]/ZIP Co de Phone Number [facility] Department [place] [address] * Magnesium (05/26/2024 10:21 PM MUSIC ASSISTANT) Magnesium 2.0 1.4 - 2.5 mg/dL Blood 05/26/2024 10:2 1 PM MUSIC ASSISTANT 05/26/2024 11:20 PM MUSIC ASSISTANT us Tashi Thurston MD LAB BLOOD ORDERABLES Final R esult [facility] Department [place] [address] * (ABNORMAL) Comprehensive metabolic panel (05/26/2024 10:21 PM MUSIC ASSISTANT) Pathologist [facility] Sodium 141 135 - 145 mmol/L Potassium, pl 4.3 3.3 - 4.9 mmol/L [facility] Chloride 105 97 - 110 mmol/L [facility] CO2 27 22 - 32 mmol/L [facility] Anion gap 9 2 - 15 mmol/L [facility] BUN 18 6 - 25 mg/dL [facility] Creatinine 1.27 0.80 - 1.30 mg/dL [facility] Glucose 90 70 - 199 mg/dL [facility] Comment: Interpretive Data Fasting glucose >/= 126 mg/dl is diagnostic for diabetes. ?? Fasting is defined as no caloric intake for at least 8 hours. Fasting glucose between 100 mg/dl to 125 mg/dl is diagnostic of prediabetes. In a patient with classic symptoms of hyperglycemia or hyperglycemic crisis, a random glucose >/= 200 mg/dl is diagnostic for diabetes. In the absence of unequivocal hyperglycemia, results should be confirmed by repeat testing. The classification and Diagnosis of Diabetes Diabetes Care 2021; 46: S19-S40. Current interpretive data was last revised 2022. Calcium 8.9 8.5 - 10.3 mg/dL [facility] Bilirubin, total 0.3 0.1 - 1.2 mg/dL [facility] Protein, pl 6.6 6.5 - 8.5 g/dL [facility] Albumin 2.9(L) 3.5 - 5.0 g/dL [facility] Alk phos 71 40 - 130 Units/L [facility] ALT 10 7 - 55 Units/L [facility] AST 19 10 - 50 Units/L [facility] Blood 05/26/2024 10:2 1 PM MUSIC ASSISTANT 05/26/2024 11:20 PM MUSIC ASSISTANT us Tashi Thurston MD LAB BLOOD ORDERABLES Final R esult [facility] Department [place] [address] * (ABNORMAL) eGFR (05/25/2024 9:24 PM MUSIC ASSISTANT) eGFR 57(L) >=60 mL/min/1. 73 m2 Comment: Interpretive Data Reference Interval Normal ?>/= 90 mL/min/1.73m2 Mildly decreased* ? 60 - 89 mL/min/1.73m2 Mildly to moderately decreased ?45 - 59 mL/min/1.73m2 Moderately to severely decreased ??30 - 44 mL/min/1.73m2 Severely decreased ?15 - 29 mL/min/1.73m2 Kidney Failure ?< 15 ??mL/min/1.73m2 *Relative to young adult level Estimated glomerular filtration rate is determined by the 2020 CKD-EPI equation recommended by the National Kidney Foundation (A Unifying Approach to GFR Estimation: Recommendations of the NKF-ASK Task Force on Reassessing the Inclusion of Race in Diagnosing Kidney Disease, JASN 202). The CKD-EPI equation should not be used for patients with unstable renal function and has not been validated in children and those over 70. Current interpretive data was last reviewed 2021. Blood 05/25/2024 9:24 PM MUSIC ASSISTANT 05/25/2024 9:59 PM MUSIC ASSISTANT us Tashi Thurston MD LAB BLOOD ORDERABLES Final R esult [facility] Department [place] [address] * (ABNORMAL) Differential, auto (05/25/2024 9:24 PM MUSIC ASSISTANT) Neutrophil abs 5.3 1.5 - 6.5 K/cumm Imm gran abs 0.1 0.0 - 0.1 K/cumm [facility] Lymphocyte abs 1.6 0.8 - 3.3 K/cumm [facility] Monocyte abs 0.9(H) 0.2 - 0.8 K/cumm [facility] Eosinophil abs 0.4 0.0 - 0.5 K/cumm [facility] Basophil abs 0.0 0.0 - 0.1 K/cumm [facility] Neutrophil pct 64.3 % [facility] Comment: Interpretive Data Percent cell count reference ranges are not reported, since discordance with absolute values may lead to misinterpretation of CBC data. Current Interpretive Data was last revised on 2017. Imm gran pct 0.6 % [facility] Comment: Interpretive Data Percent cell count reference ranges are not reported, since discordance with absolute values may lead to misinterpretation of CBC data. Current Interpretive Data was last revised on 2017. Lymphocyte pct 19.1 % [facility] Comment: Interpretive Data Percent cell count reference ranges are not reported, since discordance with absolute values may lead to misinterpretation of CBC data. Current Interpretive Data was last revised on 2017. Monocyte pct 11.0 % [facility] Comment: Interpretive Data Percent cell count reference ranges are not reported, since discordance with absolute values may lead to misinterpretation of CBC data. Current Interpretive Data was last revised on 2017. Eosinophil pct 4.6 % [facility] Comment: Interpretive Data Percent cell count reference ranges are not reported, since discordance with absolute values may lead to misinterpretation of CBC data. Current Interpretive Data was last revised on 2017. Basophil pct 0.4 % [facility] Comment: Interpretive Data Percent cell count reference ranges are not reported, since discordance with absolute values may lead to misinterpretation of CBC data. Current Interpretive Data was last revised on 2017. Blood 05/25/2024 9:24 PM MUSIC ASSISTANT 05/25/2024 9:46 PM MUSIC ASSISTANT us Tashi Thurston MD LAB BLOOD ORDERABLES Final R esult [facility] Department [place] [address] * (ABNORMAL) CBC with auto differential (05/25/2024 9:24 PM MUSIC ASSISTANT) WBC 8.2 3.8 - 9.9 K/cumm Hgb 9.2(L) 13.0 - 17.5 g/dL [facility] Hct 29.0(L) 38.9 - 50.3 % [facility] Plt 159 150 - 400 K/cumm [facility] MPV 11.4 9.1 - 12.3 fL [facility] RBC 3.42(L) 4.30 - 5.80 M/cumm [facility] MCV 84.8 81.3 - 96.4 fL [facility] MCH 26.9(L) 27.1 - 33.3 pg [facility] MCHC 31.7(L) 32.3 - 35.7 g/dL [facility] RDW CV 15.5(H) 11.1 - 14.9 % [facility] RDW SD 47.4 35.7 - 48.1 fL [facility] NRBC abs 0.00 0.00 - 0.01 K/cumm [facility] Blood 05/25/2024 9:24 PM MUSIC ASSISTANT 05/25/2024 9:46 PM MUSIC ASSISTANT us Tashi Thurston MD LAB BLOOD ORDERABLES Final R esult Performing Organization Address City/[facility]/ZIP Co de Phone Number [facility] Department [place] [address] * Magnesium (05/25/2024 9:24 PM MUSIC ASSISTANT) [facility] Magnesium 2.1 1.4 - 2.5 mg/dL Blood 05/25/2024 9:24 PM MUSIC ASSISTANT 05/25/2024 9:45 PM MUSIC ASSISTANT Tashi Thurston MD LAB BLOOD ORDERAB[place] [address] * (ABNORMAL) Creatine kinase (CK), total (05/25/2024 9:24 PM MUSIC ASSISTANT) [facility] CK 32(L) 40 - 300 Units/L Blood 05/25/2024 9:24 PM MUSIC ASSISTANT 05/25/2024 9:45 PM MUSIC ASSISTANT Sandip Juarez MD LAB BLOOD ORDERABLES Final Result Performing Organization Address City/[facility]/[place] [address] * (ABNORMAL) Comprehensive metabolic panel (05/25/2024 9:24 PM MUSIC ASSISTANT) [facility] Sodium 140 135 - 145 mmol/L Potassium, pl 4.4 3.3 - 4.9 mmol/L [facility] Chloride 107 97 - 110 mmol/L [facility] CO2 28 22 - 32 mmol/L [facility] Anion gap 5 2 - 15 mmol/L [facility] BUN 17 6 - 25 mg/dL [facility] Creatinine 1.24 0.80 - 1.30 mg/dL [facility] Glucose 131 70 - 199 mg/dL [facility] Comment: Interpretive Data Fasting glucose >/= 126 mg/dl is diagnostic for diabetes. ?? Fasting is defined as no caloric intake for at least 8 hours. Fasting glucose between 100 mg/dl to 125 mg/dl is diagnostic of prediabetes. In a patient with classic symptoms of hyperglycemia or hyperglycemic crisis, a random glucose >/= 200 mg/dl is diagnostic for diabetes. In the absence of unequivocal hyperglycemia, results should be confirmed by repeat testing. The classification and Diagnosis of Diabetes Diabetes Care 202; 46: S19-S40. Current interpretive data was last revised 2022. Calcium 8.9 8.5 - 10.3 mg/dL [facility] Bilirubin, total 0.2 0.1 - 1.2 mg/dL [facility] Protein, pl 6.6 6.5 - 8.5 g/dL [facility] Albumin 2.9(L) 3.5 - 5.0 g/dL [facility] Alk phos 82 40 - 130 Units/L [facility] ALT 13 7 - 55 Units/L [facility] AST 23 10 - 50 Units/L [facility] Blood 05/25/2024 9:24 PM MUSIC ASSISTANT 05/25/2024 9:45 PM MUSIC ASSISTANT us Tashi Thurston MD LAB BLOOD ORDERABLES Final R esult [facility] Department [place] [address] * (ABNORMAL) eGFR (05/24/2024 8:43 PM MUSIC ASSISTANT) [facility] Signature eGFR 58(L) >=60 mL/min/1. 73 m2 Comment: Interpretive Data Reference Interval Normal ?>/= 90 mL/min/1.73m2 Mildly decreased* ? 60 - 89 mL/min/1.73m2 Mildly to moderately decreased ?45 - 59 mL/min/1.73m2 Moderately to severely decreased ??30 - 44 mL/min/1.73m2 Severely decreased ?15 - 29 mL/min/1.73m2 Kidney Failure ?< 15 ??mL/min/1.73m2 *Relative to young adult level Estimated glomerular filtration rate is determined by the 2020 CKD-EPI equation recommended by the National Kidney Foundation (A Unifying Approach to GFR Estimation: Recommendations of the NKF-ASK Task Force on Reassessing the Inclusion of Race in Diagnosing Kidney Disease, JASN 2020). The CKD-EPI equation should not be used for patients with unstable renal function and has not been validated in children and those over 70. Current interpretive data was last reviewed 2021. Blood 05/24/2024 8:43 PM MUSIC ASSISTANT 05/24/2024 9:28 PM MUSIC ASSISTANT us Tashi Thurston MD LAB BLOOD ORDERABLES Final R esult [facility] Department [place] [address] * Differential, auto (05/24/2024 8:43 PM MUSIC ASSISTANT) Pathologist [facility] Neutrophil abs 3.9 1.5 - 6.5 K/cumm Imm gran abs 0.1 0.0 - 0.1 K/cumm [facility] Lymphocyte abs 1.3 0.8 - 3.3 K/cumm [facility] Monocyte abs 0.7 0.2 - 0.8 K/cumm [facility] Eosinophil abs 0.4 0.0 - 0.5 K/cumm [facility] Basophil abs 0.0 0.0 - 0.1 K/cumm [facility] Neutrophil pct 62.0 % [facility] Comment: Interpretive Data Percent cell count reference ranges are not reported, since discordance with absolute values may lead to misinterpretation of CBC data. Current Interpretive Data was last revised on 2017. Imm gran pct 0.8 % [facility] Comment: Interpretive Data Percent cell count reference ranges are not reported, since discordance with absolute values may lead to misinterpretation of CBC data. Current Interpretive Data was last revised on 2017. Lymphocyte pct 19.7 % [facility] Comment: Interpretive Data Percent cell count reference ranges are not reported, since discordance with absolute values may lead to misinterpretation of CBC data. Current Interpretive Data was last revised on 2017. Monocyte pct 10.8 % [facility] Comment: Interpretive Data Percent cell count reference ranges are not reported, since discordance with absolute values may lead to misinterpretation of CBC data. Current Interpretive Data was last revised on 2017. Eosinophil pct 6.1 % [facility] Comment: Interpretive Data Percent cell count reference ranges are not reported, since discordance with absolute values may lead to misinterpretation of CBC data. Current Interpretive Data was last revised on 2017. Basophil pct 0.6 % [facility] Comment: Interpretive Data Percent cell count reference ranges are not reported, since discordance with absolute values may lead to misinterpretation of CBC data. Current Interpretive Data was last revised on 2017. Blood 05/24/2024 8:43 PM MUSIC ASSISTANT 05/24/2024 9:28 PM MUSIC ASSISTANT us Tashi Thurston MD LAB BLOOD ORDERABLES Final R esult [facility] Department [place] [address] * (ABNORMAL) CBC with auto differential (05/24/2024 8:43 PM MUSIC ASSISTANT) WBC 6.4 3.8 - 9.9 K/cumm Hgb 8.7(L) 13.0 - 17.5 g/dL [facility] Hct 27.8(L) 38.9 - 50.3 % [facility] Plt 156 150 - 400 K/cumm [facility] MPV 11.0 9.1 - 12.3 fL [facility] RBC 3.20(L) 4.30 - 5.80 M/cumm [facility] MCV 86.9 81.3 - 96.4 fL [facility] MCH 27.2 27.1 - 33.3 pg [facility] MCHC 31.3(L) 32.3 - 35.7 g/dL [facility] RDW CV 15.6(H) 11.1 - 14.9 % [facility] RDW SD 49.6(H) 35.7 - 48.1 fL [facility] NRBC abs 0.00 0.00 - 0.01 K/cumm [facility] Blood 05/24/2024 8:43 PM MUSIC ASSISTANT 05/24/2024 9:28 PM MUSIC ASSISTANT Tashi Thurston MD LAB BLOOD ORDERABLES Final R esult Performing Organization Address City/[facility] Co de Phone Number [facility] Department [place] [address] * Magnesium (05/24/2024 8:43 PM MUSIC ASSISTANT) [facility] Magnesium 2.1 1.4 - 2.5 mg/dL Blood 05/24/2024 8:43 PM MUSIC ASSISTANT 05/24/2024 9:28 PM MUSIC ASSISTANT Tashi Thurston MD LAB BLOOD ORDERABLES Final R esult Performing Organization Address [facility] de Phone Number [facility] Department [place] [address] * (ABNORMAL) Comprehensive metabolic panel (05/24/2024 8:43 PM MUSIC ASSISTANT) [facility] Sodium 139 135 - 145 mmol/L Potassium, pl 4.3 3.3 - 4.9 mmol/L [facility] Chloride 107 97 - 110 mmol/L [facility] CO2 29 22 - 32 mmol/L [facility] Anion gap 3 2 - 15 mmol/L [facility] BUN 15 6 - 25 mg/dL [facility] Creatinine 1.22 0.80 - 1.30 mg/dL [facility] Glucose 140 70 - 199 mg/dL [facility] Comment: Interpretive Data Fasting glucose >/= 126 mg/dl is diagnostic for diabetes. ?? Fasting is defined as no caloric intake for at least 8 hours. Fasting glucose between 100 mg/dl to 125 mg/dl is diagnostic of prediabetes. In a patient with classic symptoms of hyperglycemia or hyperglycemic crisis, a random glucose >/= 200 mg/dl is diagnostic for diabetes. In the absence of unequivocal hyperglycemia, results should be confirmed by repeat testing. The classification and Diagnosis of Diabetes Diabetes Care 202; 46: S19-S40. Current interpretive data was last revised 2022. Calcium 8.8 8.5 - 10.3 mg/dL [facility] Bilirubin, total 0.2 0.1 - 1.2 mg/dL [facility] Protein, pl 6.2(L) 6.5 - 8.5 g/dL [facility] Albumin 2.6(L) 3.5 - 5.0 g/dL [facility] Alk phos 73 40 - 130 Units/L [facility] ALT 10 7 - 55 Units/L [facility] AST 17 10 - 50 Units/L [facility] Blood 05/24/2024 8:43 PM MUSIC ASSISTANT 05/24/2024 9:28 PM MUSIC ASSISTANT us Tashi Thurston MD LAB BLOOD ORDERABLES Final R esult [facility] Department [place] [address] * (ABNORMAL) eGFR (05/23/2024 9:27 PM MUSIC ASSISTANT) [facility] eGFR 58(L) >=60 mL/min/1. 73 m2 Comment: Interpretive Data Reference Interval Normal ?>/= 90 mL/min/1.73m2 Mildly decreased* ? 60 - 89 mL/min/1.73m2 Mildly to moderately decreased ?45 - 59 mL/min/1.73m2 Moderately to severely decreased ??30 - 44 mL/min/1.73m2 Severely decreased ?15 - 29 mL/min/1.73m2 Kidney Failure ?< 15 ??mL/min/1.73m2 *Relative to young adult level Estimated glomerular filtration rate is determined by the 2020 CKD-EPI equation recommended by the National Kidney Foundation (A Unifying Approach to GFR Estimation: Recommendations of the NKF-ASK Task Force on Reassessing the Inclusion of Race in Diagnosing Kidney Disease, JASN 2020). The CKD-EPI equation should not be used for patients with unstable renal function and has not been validated in children and those over 70. Current interpretive data was last reviewed 2021. Blood 05/23/2024 9:27 PM MUSIC ASSISTANT 05/23/2024 9:49 PM MUSIC ASSISTANT us Tashi Thurston MD LAB BLOOD ORDERABLES Final R esult [facility] Department [place] [address] * Differential, auto (05/23/2024 9:27 PM MUSIC ASSISTANT) Neutrophil abs 4.3 1.5 - 6.5 K/cumm Imm gran abs 0.0 0.0 - 0.1 K/cumm [facility] Lymphocyte abs 1.5 0.8 - 3.3 K/cumm [facility] Monocyte abs 0.8 0.2 - 0.8 K/cumm [facility] Eosinophil abs 0.2 0.0 - 0.5 K/cumm [facility] Basophil abs 0.0 0.0 - 0.1 K/cumm [facility] Neutrophil pct 62.9 % [facility] Comment: Interpretive Data Percent cell count reference ranges are not reported, since discordance with absolute values may lead to misinterpretation of CBC data. Current Interpretive Data was last revised on 2017. Imm gran pct 0.6 % [facility] Comment: Interpretive Data Percent cell count reference ranges are not reported, since discordance with absolute values may lead to misinterpretation of CBC data. Current Interpretive Data was last revised on 2017. Lymphocyte pct 22.4 % [facility] Comment: Interpretive Data Percent cell count reference ranges are not reported, since discordance with absolute values may lead to misinterpretation of CBC data. Current Interpretive Data was last revised on 2017. Monocyte pct 11.2 % [facility] Comment: Interpretive Data Percent cell count reference ranges are not reported, since discordance with absolute values may lead to misinterpretation of CBC data. Current Interpretive Data was last revised on 2017. Eosinophil pct 2.6 % [facility] Comment: Interpretive Data Percent cell count reference ranges are not reported, since discordance with absolute values may lead to misinterpretation of CBC data. Current Interpretive Data was last revised on 2017. Basophil pct 0.3 % [facility] Comment: Interpretive Data Percent cell count reference ranges are not reported, since discordance with absolute values may lead to misinterpretation of CBC data. Current Interpretive Data was last revised on 2017. Blood 05/23/2024 9:27 PM MUSIC ASSISTANT 05/23/2024 9:50 PM MUSIC ASSISTANT us Tashi Thurston MD LAB BLOOD ORDERABLES Final R esult [facility] Department [place] [address] * (ABNORMAL) CBC with auto differential (05/23/2024 9:27 PM MUSIC ASSISTANT) WBC 6.9 3.8 - 9.9 K/cumm Hgb 9.0(L) 13.0 - 17.5 g/dL [facility] Hct 28.6(L) 38.9 - 50.3 % [facility] Plt 175 150 - 400 K/cumm [facility] MPV 11.3 9.1 - 12.3 fL [facility] RBC 3.31(L) 4.30 - 5.80 M/cumm [facility] MCV 86.4 81.3 - 96.4 fL [facility] MCH 27.2 27.1 - 33.3 pg [facility] MCHC 31.5(L) 32.3 - 35.7 g/dL [facility] RDW CV 15.6(H) 11.1 - 14.9 % [facility] RDW SD 49.1(H) 35.7 - 48.1 fL [facility] NRBC abs 0.00 0.00 - 0.01 K/cumm [facility] Blood 05/23/2024 9:27 PM MUSIC ASSISTANT 05/23/2024 9:50 PM MUSIC ASSISTANT Tashi Thurston MD LAB BLOOD ORDERABLES Final R esult Performing Organization Address City/[facility] Co de Phone Number [facility] Department [place] [address] * Magnesium (05/23/2024 9:27 PM MUSIC ASSISTANT) [facility] Magnesium 2.2 1.4 - 2.5 mg/dL Blood 05/23/2024 9:27 PM MUSIC ASSISTANT 05/23/2024 9:49 PM MUSIC ASSISTANT us Tashi Thurston MD LAB BLOOD ORDERABLES Final R esult Performing Organization Address [facility] de Phone Number [facility] Department [place] [address] * (ABNORMAL) Comprehensive metabolic panel (05/23/2024 9:27 PM MUSIC ASSISTANT) [facility] Sodium 140 135 - 145 mmol/L Potassium, pl 4.5 3.3 - 4.9 mmol/L [facility] Chloride 106 97 - 110 mmol/L [facility] CO2 29 22 - 32 mmol/L [facility] Anion gap 5 2 - 15 mmol/L [facility] BUN 14 6 - 25 mg/dL [facility] Creatinine 1.23 0.80 - 1.30 mg/dL [facility] Glucose 120 70 - 199 mg/dL [facility] Comment: Interpretive Data Fasting glucose >/= 126 mg/dl is diagnostic for diabetes. ?? Fasting is defined as no caloric intake for at least 8 hours. Fasting glucose between 100 mg/dl to 125 mg/dl is diagnostic of prediabetes. In a patient with classic symptoms of hyperglycemia or hyperglycemic crisis, a random glucose >/= 200 mg/dl is diagnostic for diabetes. In the absence of unequivocal hyperglycemia, results should be confirmed by repeat testing. The classification and Diagnosis of Diabetes Diabetes Care 202; 46: S19-S40. Current interpretive data was last revised 2022. Calcium 8.9 8.5 - 10.3 mg/dL [facility] Bilirubin, total 0.2 0.1 - 1.2 mg/dL [facility] Protein, pl 6.3(L) 6.5 - 8.5 g/dL [facility] Albumin 2.7(L) 3.5 - 5.0 g/dL [facility] Alk phos 71 40 - 130 Units/L [facility] ALT 12 7 - 55 Units/L [facility] AST 20 10 - 50 Units/L [facility] Blood 05/23/2024 9:27 PM MUSIC ASSISTANT 05/23/2024 9:49 PM MUSIC ASSISTANT us Tashi Thurston MD LAB BLOOD ORDERABLES Final R esult [facility] Department [place] [address] * (ABNORMAL) eGFR (05/22/2024 8:31 PM MUSIC ASSISTANT) eGFR 56(L) >=60 mL/min/1. 73 m2 Comment: Interpretive Data Reference Interval Normal ?>/= 90 mL/min/1.73m2 Mildly decreased* ? 60 - 89 mL/min/1.73m2 Mildly to moderately decreased ?45 - 59 mL/min/1.73m2 Moderately to severely decreased ??30 - 44 mL/min/1.73m2 Severely decreased ?15 - 29 mL/min/1.73m2 Kidney Failure ?< 15 ??mL/min/1.73m2 *Relative to young adult level Estimated glomerular filtration rate is determined by the 2020 CKD-EPI equation recommended by the National Kidney Foundation (A Unifying Approach to GFR Estimation: Recommendations of the NKF-ASK Task Force on Reassessing the Inclusion of Race in Diagnosing Kidney Disease, JASN 2020). The CKD-EPI equation should not be used for patients with unstable renal function and has not been validated in children and those over 70. Current interpretive data was last reviewed 2021. Blood 05/22/2024 8:31 PM MUSIC ASSISTANT 05/22/2024 9:15 PM MUSIC ASSISTANT us Tashi Thurston MD LAB BLOOD ORDERABLES Final R esult [facility] Department [place] [address] * Differential, auto (05/22/2024 8:31 PM MUSIC ASSISTANT) Neutrophil abs 4.1 1.5 - 6.5 K/cumm Imm gran abs 0.0 0.0 - 0.1 K/cumm [facility] Lymphocyte abs 1.5 0.8 - 3.3 K/cumm [facility] Monocyte abs 0.7 0.2 - 0.8 K/cumm [facility] Eosinophil abs 0.2 0.0 - 0.5 K/cumm [facility] Basophil abs 0.0 0.0 - 0.1 K/cumm [facility] Neutrophil pct 62.5 % [facility] Comment: Interpretive Data Percent cell count reference ranges are not reported, since discordance with absolute values may lead to misinterpretation of CBC data. Current Interpretive Data was last revised on 2017. Imm gran pct 0.5 % [facility] Comment: Interpretive Data Percent cell count reference ranges are not reported, since discordance with absolute values may lead to misinterpretation of CBC data. Current Interpretive Data was last revised on 2017. Lymphocyte pct 22.6 % [facility] Comment: Interpretive Data Percent cell count reference ranges are not reported, since discordance with absolute values may lead to misinterpretation of CBC data. Current Interpretive Data was last revised on 2017. Monocyte pct 11.0 % [facility] Comment: Interpretive Data Percent cell count reference ranges are not reported, since discordance with absolute values may lead to misinterpretation of CBC data. Current Interpretive Data was last revised on 2017. Eosinophil pct 2.9 % [facility] Comment: Interpretive Data Percent cell count reference ranges are not reported, since discordance with absolute values may lead to misinterpretation of CBC data. Current Interpretive Data was last revised on 2017. Basophil pct 0.5 % [facility] Comment: Interpretive Data Percent cell count reference ranges are not reported, since discordance with absolute values may lead to misinterpretation of CBC data. Current Interpretive Data was last revised on 2017. Blood 05/22/2024 8:31 PM MUSIC ASSISTANT 05/22/2024 9:13 PM MUSIC ASSISTANT us Tashi Thurston MD LAB BLOOD ORDERABLES Final R esult [facility] Department [place] [address] * (ABNORMAL) CBC with auto differential (05/22/2024 8:31 PM MUSIC ASSISTANT) WBC 6.5 3.8 - 9.9 K/cumm Hgb 8.8(L) 13.0 - 17.5 g/dL [facility] Hct 28.0(L) 38.9 - 50.3 % [facility] Plt 178 150 - 400 K/cumm [facility] MPV 11.1 9.1 - 12.3 fL [facility] RBC 3.23(L) 4.30 - 5.80 M/cumm [facility] MCV 86.7 81.3 - 96.4 fL [facility] MCH 27.2 27.1 - 33.3 pg [facility] MCHC 31.4(L) 32.3 - 35.7 g/dL [facility] RDW CV 15.5(H) 11.1 - 14.9 % [facility] RDW SD 49.8(H) 35.7 - 48.1 fL [facility] NRBC abs 0.00 0.00 - 0.01 K/cumm [facility] Blood 05/22/2024 8:31 PM MUSIC ASSISTANT 05/22/2024 9:13 PM MUSIC ASSISTANT us Tashi Thurston MD LAB BLOOD ORDERABLES Final R esult Performing Organization Address City/[facility]/ZIP Co de Phone Number [facility] [place] [address] * Magnesium (05/22/2024 8:31 PM MUSIC ASSISTANT) Pathologist [facility] Magnesium 2.2 1.4 - 2.5 mg/dL Blood 05/22/2024 8:31 PM MUSIC ASSISTANT 05/22/2024 9:10 PM MUSIC ASSISTANT us Tashi Thurston MD LAB BLOOD ORDERABLES Final R esult Performing Organization Address [facility] Co de Phone Number [facility] [place] [place] [address] * (ABNORMAL) Creatine kinase (CK), total (05/22/2024 8:31 PM MUSIC ASSISTANT) Pathologist [facility] CK 25(L) 40 - 300 Units/L Blood 05/22/2024 8:31 PM MUSIC ASSISTANT 05/22/2024 9:10 PM MUSIC ASSISTANT us Tashi Phipps MD PhD LAB BLOOD ORDERABL ES Final Result Performing Organization Address City/[facility] Co de Phone Number [facility] [place] [address] * (ABNORMAL) Comprehensive metabolic panel (05/22/2024 8:31 PM MUSIC ASSISTANT) Pathologist [facility] Sodium 137 135 - 145 mmol/L Potassium, pl 4.3 3.3 - 4.9 mmol/L [facility] Chloride 106 97 - 110 mmol/L [facility] CO2 28 22 - 32 mmol/L [facility] Anion gap 3 2 - 15 mmol/L [facility] BUN 14 6 - 25 mg/dL [facility] Creatinine 1.27 0.80 - 1.30 mg/dL [facility] Glucose 135 70 - 199 mg/dL [facility] Comment: Interpretive Data Fasting glucose >/= 126 mg/dl is diagnostic for diabetes. ?? Fasting is defined as no caloric intake for at least 8 hours. Fasting glucose between 100 mg/dl to 125 mg/dl is diagnostic of prediabetes. In a patient with classic symptoms of hyperglycemia or hyperglycemic crisis, a random glucose >/= 200 mg/dl is diagnostic for diabetes. In the absence of unequivocal hyperglycemia, results should be confirmed by repeat testing. The classification and Diagnosis of Diabetes Diabetes Care 2021; 46: S19-S40. Current interpretive data was last revised 2022. Calcium 8.8 8.5 - 10.3 mg/dL [facility] Bilirubin, total 0.3 0.1 - 1.2 mg/dL [facility] Protein, pl 6.2(L) 6.5 - 8.5 g/dL [facility] Albumin 2.6(L) 3.5 - 5.0 g/dL [facility] Alk phos 76 40 - 130 Units/L [facility] ALT 14 7 - 55 Units/L [facility] AST 21 10 - 50 Units/L [facility] Blood 05/22/2024 8:31 PM MUSIC ASSISTANT 05/22/2024 9:10 PM MUSIC ASSISTANT us Tashi Thurston MD LAB BLOOD ORDERABLES Final R esult [facility] Department [place] [address] * eGFR (05/21/2024 8:10 PM MUSIC ASSISTANT) eGFR 61 >=60 mL/min/1. 73 m2 Comment: Interpretive Data Reference Interval Normal ?>/= 90 mL/min/1.73m2 Mildly decreased* ? 60 - 89 mL/min/1.73m2 Mildly to moderately decreased ?45 - 59 mL/min/1.73m2 Moderately to severely decreased ??30 - 44 mL/min/1.73m2 Severely decreased ?15 - 29 mL/min/1.73m2 Kidney Failure ?< 15 ??mL/min/1.73m2 *Relative to young adult level Estimated glomerular filtration rate is determined by the 2020 CKD-EPI equation recommended by the National Kidney Foundation (A Unifying Approach to GFR Estimation: Recommendations of the NKF-ASK Task Force on Reassessing the Inclusion of Race in Diagnosing Kidney Disease, JASN 2020). The CKD-EPI equation should not be used for patients with unstable renal function and has not been validated in children and those over 70. Current interpretive data was last reviewed 2021. Blood 05/21/2024 8:10 PM MUSIC ASSISTANT 05/21/2024 9:35 PM MUSIC ASSISTANT us Tashi Thurston MD LAB BLOOD ORDERABLES Final R esult [facility] Department [place] [address] * Differential, auto (05/21/2024 8:10 PM MUSIC ASSISTANT) Neutrophil abs 4.6 1.5 - 6.5 K/cumm Imm gran abs 0.0 0.0 - 0.1 K/cumm [facility] Lymphocyte abs 1.4 0.8 - 3.3 K/cumm [facility] Monocyte abs 0.7 0.2 - 0.8 K/cumm [facility] Eosinophil abs 0.2 0.0 - 0.5 K/cumm [facility] Basophil abs 0.0 0.0 - 0.1 K/cumm [facility] Neutrophil pct 66.3 % [facility] Comment: Interpretive Data Percent cell count reference ranges are not reported, since discordance with absolute values may lead to misinterpretation of CBC data. Current Interpretive Data was last revised on 2017. Imm gran pct 0.3 % [facility] Comment: Interpretive Data Percent cell count reference ranges are not reported, since discordance with absolute values may lead to misinterpretation of CBC data. Current Interpretive Data was last revised on 2017. Lymphocyte pct 20.1 % [facility] Comment: Interpretive Data Percent cell count reference ranges are not reported, since discordance with absolute values may lead to misinterpretation of CBC data. Current Interpretive Data was last revised on 2017. Monocyte pct 10.6 % [facility] Comment: Interpretive Data Percent cell count reference ranges are not reported, since discordance with absolute values may lead to misinterpretation of CBC data. Current Interpretive Data was last revised on 2017. Eosinophil pct 2.3 % [facility] Comment: Interpretive Data Percent cell count reference ranges are not reported, since discordance with absolute values may lead to misinterpretation of CBC data. Current Interpretive Data was last revised on 2017. Basophil pct 0.4 % [facility] Comment: Interpretive Data Percent cell count reference ranges are not reported, since discordance with absolute values may lead to misinterpretation of CBC data. Current Interpretive Data was last revised on 2017. Blood 05/21/2024 8:10 PM MUSIC ASSISTANT 05/21/2024 9:36 PM MUSIC ASSISTANT us Tashi Thurston MD LAB BLOOD ORDERABLES Final R esult [facility] Department [place] [address] * (ABNORMAL) CBC with auto differential (05/21/2024 8:10 PM MUSIC ASSISTANT) WBC 6.9 3.8 - 9.9 K/cumm Hgb 8.8(L) 13.0 - 17.5 g/dL [facility] Hct 28.3(L) 38.9 - 50.3 % [facility] Plt 199 150 - 400 K/cumm [facility] MPV 11.4 9.1 - 12.3 fL [facility] RBC 3.29(L) 4.30 - 5.80 M/cumm [facility] MCV 86.0 81.3 - 96.4 fL [facility] MCH 26.7(L) 27.1 - 33.3 pg [facility] MCHC 31.1(L) 32.3 - 35.7 g/dL [facility] RDW CV 15.5(H) 11.1 - 14.9 % [facility] RDW SD 48.6(H) 35.7 - 48.1 fL [facility] NRBC abs 0.00 0.00 - 0.01 K/cumm [facility] Blood 05/21/2024 8:10 PM MUSIC ASSISTANT 05/21/2024 9:36 PM MUSIC ASSISTANT us Tashi Thurston MD LAB BLOOD ORDERABLES Final R esult Performing Organization Address City/[facility]/ZIP Co de Phone Number [facility] [place] [address] * Magnesium (05/21/2024 8:10 PM MUSIC ASSISTANT) [facility] Magnesium 2.1 1.4 - 2.5 mg/dL Blood 05/21/2024 8:10 PM MUSIC ASSISTANT 05/21/2024 9:35 PM MUSIC ASSISTANT us Tashi Thurston MD LAB BLOOD ORDERABLES Final R esult [facility] [place] [address] * (ABNORMAL) Comprehensive metabolic panel (05/21/2024 8:10 PM MUSIC ASSISTANT) Pathologist [facility] Sodium 142 135 - 145 mmol/L Potassium, pl 3.9 3.3 - 4.9 mmol/L [facility] Chloride 108 97 - 110 mmol/L [facility] CO2 28 22 - 32 mmol/L [facility] Anion gap 6 2 - 15 mmol/L [facility] BUN 11 6 - 25 mg/dL [facility] Creatinine 1.17 0.80 - 1.30 mg/dL [facility] Glucose 155 70 - 199 mg/dL [facility] Comment: Interpretive Data Fasting glucose >/= 126 mg/dl is diagnostic for diabetes. ?? Fasting is defined as no caloric intake for at least 8 hours. Fasting glucose between 100 mg/dl to 125 mg/dl is diagnostic of prediabetes. In a patient with classic symptoms of hyperglycemia or hyperglycemic crisis, a random glucose >/= 200 mg/dl is diagnostic for diabetes. In the absence of unequivocal hyperglycemia, results should be confirmed by repeat testing. The classification and Diagnosis of Diabetes Diabetes Care 202; 46: S19-S40. Current interpretive data was last revised 2022. Calcium 8.7 8.5 - 10.3 mg/dL [facility] Bilirubin, total 0.3 0.1 - 1.2 mg/dL [facility] Protein, pl 6.1(L) 6.5 - 8.5 g/dL [facility] Albumin 2.6(L) 3.5 - 5.0 g/dL [facility] Alk phos 64 40 - 130 Units/L [facility] ALT 11 7 - 55 Units/L [facility] AST 18 10 - 50 Units/L [facility] Blood 05/21/2024 8:10 PM MUSIC ASSISTANT 05/21/2024 9:35 PM MUSIC ASSISTANT us Tashi Thurston MD LAB BLOOD ORDERABLES Final R esult [facility] Department [place] [address] * eGFR (05/20/2024 8:16 PM MUSIC ASSISTANT) eGFR 60 >=60 mL/min/1. 73 m2 Comment: Interpretive Data Reference Interval Normal ?>/= 90 mL/min/1.73m2 Mildly decreased* ? 60 - 89 mL/min/1.73m2 Mildly to moderately decreased ?45 - 59 mL/min/1.73m2 Moderately to severely decreased ??30 - 44 mL/min/1.73m2 Severely decreased ?15 - 29 mL/min/1.73m2 Kidney Failure ?< 15 ??mL/min/1.73m2 *Relative to young adult level Estimated glomerular filtration rate is determined by the 2020 CKD-EPI equation recommended by the National Kidney Foundation (A Unifying Approach to GFR Estimation: Recommendations of the NKF-ASK Task Force on Reassessing the Inclusion of Race in Diagnosing Kidney Disease, JASN 2020). The CKD-EPI equation should not be used for patients with unstable renal function and has not been validated in children and those over 70. Current interpretive data was last reviewed 2021. Blood 05/20/2024 8:16 PM MUSIC ASSISTANT 05/20/2024 8:53 PM MUSIC ASSISTANT us Tashi Thurston MD LAB BLOOD ORDERABLES Final R esult [facility] Department [place] [address] * Differential, auto (05/20/2024 8:16 PM MUSIC ASSISTANT) Neutrophil abs 4.4 1.5 - 6.5 K/cumm Imm gran abs 0.0 0.0 - 0.1 K/cumm [facility] Lymphocyte abs 1.3 0.8 - 3.3 K/cumm [facility] Monocyte abs 0.6 0.2 - 0.8 K/cumm [facility] Eosinophil abs 0.1 0.0 - 0.5 K/cumm [facility] Basophil abs 0.0 0.0 - 0.1 K/cumm [facility] Neutrophil pct 67.8 % [facility] Comment: Interpretive Data Percent cell count reference ranges are not reported, since discordance with absolute values may lead to misinterpretation of CBC data. Current Interpretive Data was last revised on 2017. Imm gran pct 0.3 % [facility] Comment: Interpretive Data Percent cell count reference ranges are not reported, since discordance with absolute values may lead to misinterpretation of CBC data. Current Interpretive Data was last revised on 2017. Lymphocyte pct 20.0 % [facility] Comment: Interpretive Data Percent cell count reference ranges are not reported, since discordance with absolute values may lead to misinterpretation of CBC data. Current Interpretive Data was last revised on 2017. Monocyte pct 9.1 % [facility] Comment: Interpretive Data Percent cell count reference ranges are not reported, since discordance with absolute values may lead to misinterpretation of CBC data. Current Interpretive Data was last revised on 2017. Eosinophil pct 2.2 % [facility] Comment: Interpretive Data Percent cell count reference ranges are not reported, since discordance with absolute values may lead to misinterpretation of CBC data. Current Interpretive Data was last revised on 2017. Basophil pct 0.6 % [facility] Comment: Interpretive Data Percent cell count reference ranges are not reported, since discordance with absolute values may lead to misinterpretation of CBC data. Current Interpretive Data was last revised on 2017. Blood 05/20/2024 8:16 PM MUSIC ASSISTANT 05/20/2024 8:52 PM MUSIC ASSISTANT us Tashi Thurston MD LAB BLOOD ORDERABLES Final R esult [facility] Department [place] [address] * (ABNORMAL) CBC with auto differential (05/20/2024 8:16 PM MUSIC ASSISTANT) WBC 6.5 3.8 - 9.9 K/cumm Hgb 9.0(L) 13.0 - 17.5 g/dL [facility] Hct 28.9(L) 38.9 - 50.3 % [facility] Plt 174 150 - 400 K/cumm [facility] MPV 11.1 9.1 - 12.3 fL [facility] RBC 3.33(L) 4.30 - 5.80 M/cumm [facility] MCV 86.8 81.3 - 96.4 fL [facility] MCH 27.0(L) 27.1 - 33.3 pg [facility] MCHC 31.1(L) 32.3 - 35.7 g/dL [facility] RDW CV 15.5(H) 11.1 - 14.9 % [facility] RDW SD 49.7(H) 35.7 - 48.1 fL [facility] NRBC abs 0.00 0.00 - 0.01 K/cumm [facility] Blood 05/20/2024 8:16 PM MUSIC ASSISTANT 05/20/2024 8:52 PM MUSIC ASSISTANT Tashi Thurston MD LAB BLOOD ORDERABLES Final R esult Performing Organization Address City/[facility]/ZIP Co de Phone Number [facility] [place] [address] * Magnesium (05/20/2024 8:16 PM MUSIC ASSISTANT) [facility] Magnesium 2.0 1.4 - 2.5 mg/dL Blood 05/20/2024 8:16 PM MUSIC ASSISTANT 05/20/2024 8:53 PM MUSIC ASSISTANT us Tashi Thurston MD LAB BLOOD ORDERABLES Final R esult Performing Organization Address City/[facility]/ZIP Co de Phone Number [facility] [place] [address] * (ABNORMAL) Comprehensive metabolic panel (05/20/2024 8:16 PM MUSIC ASSISTANT) [facility] Sodium 140 135 - 145 mmol/L Potassium, pl 4.3 3.3 - 4.9 mmol/L [facility] Chloride 108 97 - 110 mmol/L [facility] CO2 26 22 - 32 mmol/L [facility] Anion gap 6 2 - 15 mmol/L [facility] BUN 11 6 - 25 mg/dL [facility] Creatinine 1.19 0.80 - 1.30 mg/dL [facility] Glucose 134 70 - 199 mg/dL [facility] Comment: Interpretive Data Fasting glucose >/= 126 mg/dl is diagnostic for diabetes. ?? Fasting is defined as no caloric intake for at least 8 hours. Fasting glucose between 100 mg/dl to 125 mg/dl is diagnostic of prediabetes. In a patient with classic symptoms of hyperglycemia or hyperglycemic crisis, a random glucose >/= 200 mg/dl is diagnostic for diabetes. In the absence of unequivocal hyperglycemia, results should be confirmed by repeat testing. The classification and Diagnosis of Diabetes Diabetes Care 202; 46: S19-S40. Current interpretive data was last revised 2022. Calcium 8.5 8.5 - 10.3 mg/dL [facility] Bilirubin, total 0.3 0.1 - 1.2 mg/dL [facility] Protein, pl 6.2(L) 6.5 - 8.5 g/dL [facility] Albumin 2.7(L) 3.5 - 5.0 g/dL [facility] Alk phos 67 40 - 130 Units/L [facility] ALT 13 7 - 55 Units/L [facility] AST 26 10 - 50 Units/L [facility] Blood 05/20/2024 8:16 PM MUSIC ASSISTANT 05/20/2024 8:53 PM MUSIC ASSISTANT us Tashi Thurston MD LAB BLOOD ORDERABLES Final R esult [facility] Department [place] [address] * eGFR (05/19/2024 8:19 PM MUSIC ASSISTANT) eGFR 64 >=60 mL/min/1. 73 m2 Comment: Interpretive Data Reference Interval Normal ?>/= 90 mL/min/1.73m2 Mildly decreased* ? 60 - 89 mL/min/1.73m2 Mildly to moderately decreased ?45 - 59 mL/min/1.73m2 Moderately to severely decreased ??30 - 44 mL/min/1.73m2 Severely decreased ?15 - 29 mL/min/1.73m2 Kidney Failure ?< 15 ??mL/min/1.73m2 *Relative to young adult level Estimated glomerular filtration rate is determined by the 2020 CKD-EPI equation recommended by the National Kidney Foundation (A Unifying Approach to GFR Estimation: Recommendations of the NKF-ASK Task Force on Reassessing the Inclusion of Race in Diagnosing Kidney Disease, JASN 2020). The CKD-EPI equation should not be used for patients with unstable renal function and has not been validated in children and those over 70. Current interpretive data was last reviewed 2021. Blood 05/19/2024 8:19 PM MUSIC ASSISTANT 05/19/2024 9:03 PM MUSIC ASSISTANT us Tashi Thurston MD LAB BLOOD ORDERABLES Final R esult [facility] Department [place] [address] * Differential, auto (05/19/2024 8:19 PM MUSIC ASSISTANT) Neutrophil abs 4.8 1.5 - 6.5 K/cumm Imm gran abs 0.0 0.0 - 0.1 K/cumm [facility] Lymphocyte abs 1.5 0.8 - 3.3 K/cumm [facility] Monocyte abs 0.7 0.2 - 0.8 K/cumm [facility] Eosinophil abs 0.2 0.0 - 0.5 K/cumm [facility] Basophil abs 0.0 0.0 - 0.1 K/cumm [facility] Neutrophil pct 66.5 % [facility] Comment: Interpretive Data Percent cell count reference ranges are not reported, since discordance with absolute values may lead to misinterpretation of CBC data. Current Interpretive Data was last revised on 2017. Imm gran pct 0.4 % [facility] Comment: Interpretive Data Percent cell count reference ranges are not reported, since discordance with absolute values may lead to misinterpretation of CBC data. Current Interpretive Data was last revised on 2017. Lymphocyte pct 21.0 % [facility] Comment: Interpretive Data Percent cell count reference ranges are not reported, since discordance with absolute values may lead to misinterpretation of CBC data. Current Interpretive Data was last revised on 2017. Monocyte pct 9.5 % [facility] Comment: Interpretive Data Percent cell count reference ranges are not reported, since discordance with absolute values may lead to misinterpretation of CBC data. Current Interpretive Data was last revised on 2017. Eosinophil pct 2.2 % [facility] Comment: Interpretive Data Percent cell count reference ranges are not reported, since discordance with absolute values may lead to misinterpretation of CBC data. Current Interpretive Data was last revised on 2017. Basophil pct 0.4 % [facility] Comment: Interpretive Data Percent cell count reference ranges are not reported, since discordance with absolute values may lead to misinterpretation of CBC data. Current Interpretive Data was last revised on 2017. Blood 05/19/2024 8:19 PM MUSIC ASSISTANT 05/19/2024 8:55 PM MUSIC ASSISTANT us Tashi Thurston MD LAB BLOOD ORDERABLES Final R esult [facility] Department of Laboratories [place], [place] [id number] * (ABNORMAL) CBC with auto differential (05/19/2024 8:19 PM MUSIC ASSISTANT) WBC 7.2 3.8 - 9.9 K/cumm Hgb 8.9(L) 13.0 - 17.5 g/dL [facility] Hct 28.4(L) 38.9 - 50.3 % [facility] Plt 222 150 - 400 K/cumm [facility] MPV 11.2 9.1 - 12.3 fL [facility] RBC 3.30(L) 4.30 - 5.80 M/cumm [facility] MCV 86.1 81.3 - 96.4 fL [facility] MCH 27.0(L) 27.1 - 33.3 pg [facility] MCHC 31.3(L) 32.3 - 35.7 g/dL [facility] RDW CV 15.7(H) 11.1 - 14.9 % [facility] RDW SD 49.3(H) 35.7 - 48.1 fL [facility] NRBC abs 0.00 0.00 - 0.01 K/cumm [facility] Blood 05/19/2024 8:19 PM MUSIC ASSISTANT 05/19/2024 8:55 PM MUSIC ASSISTANT Tashi Thurston MD LAB BLOOD ORDERABLES Final R esult Performing Organization Address City/[facility]/ZIP Co de Phone Number [facility] Department [place] [address] * Magnesium (05/19/2024 8:19 PM MUSIC ASSISTANT) Pathologist [facility] Magnesium 2.0 1.4 - 2.5 mg/dL Blood 05/19/2024 8:19 PM MUSIC ASSISTANT 05/19/2024 8:55 PM MUSIC ASSISTANT us Tashi Thurston MD LAB BLOOD ORDERABLES Final R esult Performing Organization Address City/[facility]/ZIP Co de Phone Number [facility] Department [place] [address] * Creatine kinase (CK), total (05/19/2024 8:19 PM MUSIC ASSISTANT) CK 42 40 - 300 Units/L Blood 05/19/2024 8:19 PM MUSIC ASSISTANT 05/19/2024 8:55 PM MUSIC ASSISTANT Sandip Juarez MD LAB BLOOD ORDERABLES Final Result [facility] Department [place] [address] * (ABNORMAL) Comprehensive metabolic panel (05/19/2024 8:19 PM MUSIC ASSISTANT) Sodium 140 135 - 145 mmol/L Potassium, pl 4.1 3.3 - 4.9 mmol/L [facility] Chloride 105 97 - 110 mmol/L [facility] CO2 28 22 - 32 mmol/L [facility] [facility] Anion gap 7 2 - 15 mmol/L [facility] BUN 10 6 - 25 mg/dL [facility] Creatinine 1.13 0.80 - 1.30 mg/dL [facility] Glucose 97 70 - 199 mg/dL [facility] Comment: Interpretive Data Fasting glucose >/= 126 mg/dl is diagnostic for diabetes. ?? Fasting is defined as no caloric intake for at least 8 hours. Fasting glucose between 100 mg/dl to 125 mg/dl is diagnostic of prediabetes. In a patient with classic symptoms of hyperglycemia or hyperglycemic crisis, a random glucose >/= 200 mg/dl is diagnostic for diabetes. In the absence of unequivocal hyperglycemia, results should be confirmed by repeat testing. The classification and Diagnosis of Diabetes Diabetes Care 202; 46: S19-S40. Current interpretive data was last revised 2022. Calcium 8.6 8.5 - 10.3 mg/dL [facility] Bilirubin, total 0.3 0.1 - 1.2 mg/dL [facility] Protein, pl 6.1(L) 6.5 - 8.5 g/dL [facility] Albumin 2.6(L) 3.5 - 5.0 g/dL [facility] Alk phos 66 40 - 130 Units/L [facility] ALT 16 7 - 55 Units/L [facility] AST 21 10 - 50 Units/L [facility] Blood 05/19/2024 8:19 PM MUSIC ASSISTANT 05/19/2024 8:55 PM MUSIC ASSISTANT Tashi Thurston MD LAB BLOOD ORDERABLES Final R esult [facility] Department [place] [address] * XR Chest 1 View (05/19/2024 4:57 PM MUSIC ASSISTANT) Anatomical Region Laterality Modality Body, Chest N/A Computed Radiogr aphy 05/19/2024 5:51 PM MUSIC ASSISTANT Impressions 05/19/2024 5:59 PM MUSIC ASSISTANT Comparison is made to PET/CT from 05/18/2024 and radiograph from 05/13/2024. Right-sided peripherally inserted central venous catheter tip terminates in the superior cavoatrial junction. ??Left-sided pacemaker leads terminate in the right atrium and right ventricle. ??Median sternotomy wires are aligned and intact. Patchy multifocal areas of airspace opacity are similar to prior PET/CT and likely represent multifocal pneumonia. ??Small bilateral pleural effusions are unchanged with adjacent atelectasis, greater on the left. ??No pneumothorax. ??No pulmonary edema. ??Stable normal sized cardiomediastinal silhouette. Dictated by: Ethan Robb MD The radiology attending physician has personally reviewed this study, and had reviewed and/or edited this written report and agrees with it. Electronically signed by: Khushbu Hanna M.D. Narrative 05/19/2024 5:59 PM MUSIC ASSISTANT EXAMINATION: 1 view chest radiograph Procedure Note Khushbu Hanna MD - 05/19/2024 EXAMINATION: 1 view chest radiograph IMPRESSION: Comparison is made to PET/CT from 05/18/2024 and radiograph from 05/13/2024. Right-sided peripherally inserted central venous catheter tip terminates in the superior cavoatrial junction. Left-sided pacemaker leads terminate in the right atrium and right ventricle. Median sternotomy wires are aligned and intact. Patchy multifocal areas of airspace opacity are similar to prior PET/CT and likely represent multifocal pneumonia. Small bilateral pleural effusions are unchanged with adjacent atelectasis, greater on the left. No pneumothorax. No pulmonary edema. Stable normal sized cardiomediastinal silhouette. Dictated by: Ethan Robb MD The radiology attending physician has personally reviewed this study, and had reviewed and/or edited this written report and agrees with it. Electronically signed by: Khushbu Hanna M.D. us Sandip Juarez MD IMG XR PROCEDURES Final Res ult * eGFR (05/18/2024 10:09 PM MUSIC ASSISTANT) eGFR 67 >=60 mL/min/1. 73 m2 Comment: Interpretive Data Reference Interval Normal ?>/= 90 mL/min/1.73m2 Mildly decreased* ? 60 - 89 mL/min/1.73m2 Mildly to moderately decreased ?45 - 59 mL/min/1.73m2 Moderately to severely decreased ??30 - 44 mL/min/1.73m2 Severely decreased ?15 - 29 mL/min/1.73m2 Kidney Failure ?< 15 ??mL/min/1.73m2 *Relative to young adult level Estimated glomerular filtration rate is determined by the 2020 CKD-EPI equation recommended by the National Kidney Foundation (A Unifying Approach to GFR Estimation: Recommendations of the NKF-ASK Task Force on Reassessing the Inclusion of Race in Diagnosing Kidney Disease, JASN 2020). The CKD-EPI equation should not be used for patients with unstable renal function and has not been validated in children and those over 70. Current interpretive data was last reviewed 2021. Blood 05/18/2024 10:0 9 PM MUSIC ASSISTANT 05/18/2024 10:53 PM MUSIC ASSISTANT us Tashi Thurston MD LAB BLOOD ORDERABLES Final R esult [facility] Department [place] [address] * Differential, auto (05/18/2024 10:09 PM MUSIC ASSISTANT) Neutrophil abs 3.9 1.5 - 6.5 K/cumm Imm gran abs 0.0 0.0 - 0.1 K/cumm [facility] Lymphocyte abs 1.5 0.8 - 3.3 K/cumm [facility] Monocyte abs 0.6 0.2 - 0.8 K/cumm [facility] Eosinophil abs 0.2 0.0 - 0.5 K/cumm [facility] Basophil abs 0.0 0.0 - 0.1 K/cumm [facility] Neutrophil pct 62.6 % [facility] Comment: Interpretive Data Percent cell count reference ranges are not reported, since discordance with absolute values may lead to misinterpretation of CBC data. Current Interpretive Data was last revised on 2017. Imm gran pct 0.6 % [facility] Comment: Interpretive Data Percent cell count reference ranges are not reported, since discordance with absolute values may lead to misinterpretation of CBC data. Current Interpretive Data was last revised on 2017. Lymphocyte pct 23.6 % [facility] Comment: Interpretive Data Percent cell count reference ranges are not reported, since discordance with absolute values may lead to misinterpretation of CBC data. Current Interpretive Data was last revised on 2017. Monocyte pct 10.2 % [facility] Comment: Interpretive Data Percent cell count reference ranges are not reported, since discordance with absolute values may lead to misinterpretation of CBC data. Current Interpretive Data was last revised on 2017. Eosinophil pct 2.7 % [facility] Comment: Interpretive Data Percent cell count reference ranges are not reported, since discordance with absolute values may lead to misinterpretation of CBC data. Current Interpretive Data was last revised on 2017. Basophil pct 0.3 % [facility] Comment: Interpretive Data Percent cell count reference ranges are not reported, since discordance with absolute values may lead to misinterpretation of CBC data. Current Interpretive Data was last revised on 2017. Blood 05/18/2024 10:0 9 PM MUSIC ASSISTANT 05/18/2024 10:55 PM MUSIC ASSISTANT us Tashi Thurston MD LAB BLOOD ORDERABLES Final R esult Performing Organization Address City/[facility]/ZIP Co de Phone Number [facility] Department [place] [address] * (ABNORMAL) CBC with auto differential (05/18/2024 10:09 PM MUSIC ASSISTANT) WBC 6.3 3.8 - 9.9 K/cumm Hgb 9.1(L) 13.0 - 17.5 g/dL [facility] Hct 28.4(L) 38.9 - 50.3 % [facility] Plt 200 150 - 400 K/cumm [facility] MPV 11.3 9.1 - 12.3 fL [facility] RBC 3.32(L) 4.30 - 5.80 M/cumm [facility] MCV 85.5 81.3 - 96.4 fL [facility] MCH 27.4 27.1 - 33.3 pg [facility] MCHC 32.0(L) 32.3 - 35.7 g/dL [facility] RDW CV 15.5(H) 11.1 - 14.9 % [facility] RDW SD 49.4(H) 35.7 - 48.1 fL [facility] NRBC abs 0.00 0.00 - 0.01 K/cumm [facility] Blood 05/18/2024 10:0 9 PM MUSIC ASSISTANT 05/18/2024 10:55 PM MUSIC ASSISTANT us Tashi Thurston MD LAB BLOOD ORDERABLES Final R esult [facility] Department [place] [address] * Magnesium (05/18/2024 10:09 PM MUSIC ASSISTANT) Magnesium 1.9 1.4 - 2.5 mg/dL Blood 05/18/2024 10:0 9 PM MUSIC ASSISTANT 05/18/2024 10:53 PM MUSIC ASSISTANT us Tashi Thurston MD LAB BLOOD ORDERABLES Final R esult [facility] Department [place] [address] * (ABNORMAL) Comprehensive metabolic panel (05/18/2024 10:09 PM MUSIC ASSISTANT) Pathologist [facility] Sodium 138 135 - 145 mmol/L Potassium, pl 3.6 3.3 - 4.9 mmol/L [facility] Chloride 105 97 - 110 mmol/L [facility] CO2 25 22 - 32 mmol/L [facility] Anion gap 8 2 - 15 mmol/L [facility] BUN 12 6 - 25 mg/dL [facility] Creatinine 1.09 0.80 - 1.30 mg/dL [facility] Glucose 92 70 - 199 mg/dL [facility] Comment: Interpretive Data Fasting glucose >/= 126 mg/dl is diagnostic for diabetes. ?? Fasting is defined as no caloric intake for at least 8 hours. Fasting glucose between 100 mg/dl to 125 mg/dl is diagnostic of prediabetes. In a patient with classic symptoms of hyperglycemia or hyperglycemic crisis, a random glucose >/= 200 mg/dl is diagnostic for diabetes. In the absence of unequivocal hyperglycemia, results should be confirmed by repeat testing. The classification and Diagnosis of Diabetes Diabetes Care 2021; 46: S19-S40. Current interpretive data was last revised 2022. Calcium 8.1(L) 8.5 - 10.3 mg/dL [facility] Bilirubin, total 0.3 0.1 - 1.2 mg/dL [facility] Protein, pl 6.1(L) 6.5 - 8.5 g/dL [facility] Albumin 2.6(L) 3.5 - 5.0 g/dL [facility] Alk phos 66 40 - 130 Units/L [facility] ALT 16 7 - 55 Units/L [facility] AST 25 10 - 50 Units/L [facility] Blood 05/18/2024 10:0 9 PM MUSIC ASSISTANT 05/18/2024 10:53 PM MUSIC ASSISTANT us Tashi Thurston MD LAB BLOOD ORDERABLES Final R esult [facility] Department [place] [address] * PET/CT FDG Skull to Thigh (05/18/2024 10:21 AM MUSIC ASSISTANT) Anatomical Region Laterality Modality N/A Positron Emissio n Tomography (PET) 05/18/2024 1:44 PM MUSIC ASSISTANT Impressions 05/18/2024 2:09 PM MUSIC ASSISTANT 1. Multifocal areas of FDG avid consolidation throughout the bilateral lungs in a predominantly dependent distribution, new from 03/03/2024 and favored to represent infective/inflammatory changes, especially that of a multifocal pneumonia, possibly related to aspiration. 2. Focus of moderate FDG uptake in the right posterior peripheral zone of the prostate apex. Suggest correlation with serum PSA. 3. Large gallstone measuring up to 3.3 cm in size without evidence of acute cholecystitis. Dictated by: Cedric Sutton M.D. The radiology attending physician has personally reviewed this study, and had reviewed and/or edited this written report and agrees with it. Electronically signed by: Clive Martinez M.D. Narrative 05/18/2024 2:09 PM MUSIC ASSISTANT EXAMINATION: TUMOR FDG-PET/CT IMAGING DATE OF STUDY: ??05/18/2024 SCANNER: [facility] N PET Vision (NV1). ??This is a high-resolution scanner, which can result in higher SUVs (and even detection of new small lesions) compared to older scanners. RADIOPHARMACEUTICAL: 17.75 mCi F-18 Fluorodeoxyglucose (FDG) i.v. Injection site: Left antecubital fossa HISTORY: 83-year-old patient with MRSA bacteremia of unknown origin. The study is requested for diagnosis. Initial treatment strategy. TECHNIQUE: ?? The patient's fasting blood glucose level, measured by glucometer before injection of FDG, was 96 mg/dL. ?? After intravenous administration of FDG, noncontrast CT images were obtained for attenuation correction and for fusion with emission PET images to allow for anatomical localization of PET findings. ??Emission PET images were then obtained. ??The study was interpreted on the [employer] workstation. ??The mean liver SUV (reported for supplier quality engineer purposes) is 1.7. ?? The total scanned area was skull base to proximal thighs. Images of the body were obtained at 56 and 82 minutes after injection of tracer. Initial images obtained at 56 minutes after injection were partially degraded due to contamination, requiring patient cleaning and gown change. All reported SUVs are maximum SUVs, unless otherwise specified. COMPARISON: Chest radiograph 05/13/2024. ??CT from 03/03/2024. DESCRIPTORS OF LESION FDG AVIDITY: Minimal: ? <= blood pool ? Mild: ?> blood pool and <= liver ? Moderate: ?? > liver and <= 2x SUVmax liver ? Moderate to marked: ?? >2x SUVmax liver and <= 3x SUVmax liver ? Marked: ? > 3x SUVmax liver ? FINDINGS: Multifocal areas of consolidation throughout the bilateral lungs in a predominantly dependent distribution with associated moderate to marked FDG uptake, new from 03/03/2024 and favored to represent multifocal pneumonia possibly related to aspiration. Subcentimeter left supraclavicular lymph node with moderate FDG uptake and multiple other scattered mildly enlarged and moderately hypermetabolic mediastinal and bilateral inguinal lymph nodes, likely reactive. ??For reference, an aortopulmonary window lymph node measures up to 1.2 cm in short axis with SUV of 3.8. Diffuse FDG uptake in the spleen greater than liver and prominent bilateral adrenal FDG uptake, expected in the setting of systemic infection/sepsis. Focus of moderate FDG uptake (SUV 4.4) in the right posterior peripheral zone of the apical prostate (image 193), of uncertain etiology. ??Correlation with PSA recommended. Degenerative pattern of FDG uptake in the bilateral hips and at L4-L5. 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 ??Atherosclerotic calcifications of the thoracic and abdominal aorta. ??Coronary artery calcifications. ??Mitral annulus calcifications. ??Large gallstone measuring up to 3.3 cm in size without evidence of acute cholecystitis. ??Valdez catheter terminating in the urinary bladder. Colonic diverticulosis without evidence of acute diverticulitis. Small moderate left and small right pleural effusions. ??Transcatheter aortic valve replacement. Procedure Note Clive Martinez MD - 05/18/2024 EXAMINATION: TUMOR FDG-PET/CT IMAGING DATE OF STUDY: 05/18/2024 SCANNER: [facility] Bulb (NV1). This is a high-resolution scanner, which can result in higher SUVs (and even detection of new small lesions) compared to older scanners. RADIOPHARMACEUTICAL: 17.75 mCi F-18 Fluorodeoxyglucose (FDG) i.v. Injection site: Left antecubital fossa HISTORY: 83-year-old patient with MRSA bacteremia of unknown origin. The study is requested for diagnosis. Initial treatment strategy. TECHNIQUE: The patient's fasting blood glucose level, measured by glucometer before injection of FDG, was 96 mg/dL. After intravenous administration of FDG, noncontrast CT images were obtained for attenuation correction and for fusion with emission PET images to allow for anatomical localization of PET findings. Emission PET images were then obtained. The study was interpreted on the [employer] workstation. The mean liver SUV (reported for supplier quality engineer purposes) is 1.7. The total scanned area was skull base to proximal thighs. Images of the body were obtained at 56 and 82 minutes after injection of tracer. Initial images obtained at 56 minutes after injection were partially degraded due to contamination, requiring patient cleaning and gown change. All reported SUVs are maximum SUVs, unless otherwise specified. COMPARISON: Chest radiograph 05/13/2024. CT from 03/03/2024. DESCRIPTORS OF LESION FDG AVIDITY: Minimal: <= blood pool Mild: > blood pool and <= liver Moderate: > liver and <= 2x SUVmax liver Moderate to marked: >2x SUVmax liver and <= 3x SUVmax liver Marked: > 3x SUVmax liver FINDINGS: Multifocal areas of consolidation throughout the bilateral lungs in a predominantly dependent distribution with associated moderate to marked FDG uptake, new from 03/03/2024 and favored to represent multifocal pneumonia possibly related to aspiration. Subcentimeter left supraclavicular lymph node with moderate FDG uptake and multiple other scattered mildly enlarged and moderately hypermetabolic mediastinal and bilateral inguinal lymph nodes, likely reactive. For reference, an aortopulmonary window lymph node measures up to 1.2 cm in short axis with SUV of 3.8. Diffuse FDG uptake in the spleen greater than liver and prominent bilateral adrenal FDG uptake, expected in the setting of systemic infection/sepsis. Focus of moderate FDG uptake (SUV 4.4) in the right posterior peripheral zone of the apical prostate (image 193), of uncertain etiology. Correlation with PSA recommended. Degenerative pattern of FDG uptake in the bilateral hips and at L4-L5. 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 Atherosclerotic calcifications of the thoracic and abdominal aorta. Coronary artery calcifications. Mitral annulus calcifications. Large gallstone measuring up to 3.3 cm in size without evidence of acute cholecystitis. Valdez catheter terminating in the urinary bladder. Colonic diverticulosis without evidence of acute diverticulitis. Small moderate left and small right pleural effusions. Transcatheter aortic valve replacement. IMPRESSION: 1. Multifocal areas of FDG avid consolidation throughout the bilateral lungs in a predominantly dependent distribution, new from 03/03/2024 and favored to represent infective/inflammatory changes, especially that of a multifocal pneumonia, possibly related to aspiration. 2. Focus of moderate FDG uptake in the right posterior peripheral zone of the prostate apex. Suggest correlation with serum PSA. 3. Large gallstone measuring up to 3.3 cm in size without evidence of acute cholecystitis. Dictated by: Cedric Sutton M.D. The radiology attending physician has personally reviewed this study, and had reviewed and/or edited this written report and agrees with it. Electronically signed by: Clive Martinez M.D. Sandip Juarez MD IMG PET PROCEDURES Final Re sult * eGFR (05/17/2024 9:34 PM MUSIC ASSISTANT) eGFR 69 >=60 mL/min/1. 73 m2 Comment: Interpretive Data Reference Interval Normal ?>/= 90 mL/min/1.73m2 Mildly decreased* ? 60 - 89 mL/min/1.73m2 Mildly to moderately decreased ?45 - 59 mL/min/1.73m2 Moderately to severely decreased ??30 - 44 mL/min/1.73m2 Severely decreased ?15 - 29 mL/min/1.73m2 Kidney Failure ?< 15 ??mL/min/1.73m2 *Relative to young adult level Estimated glomerular filtration rate is determined by the 2020 CKD-EPI equation recommended by the National Kidney Foundation (A Unifying Approach to GFR Estimation: Recommendations of the NKF-ASK Task Force on Reassessing the Inclusion of Race in Diagnosing Kidney Disease, JASN 2020). The CKD-EPI equation should not be used for patients with unstable renal function and has not been validated in children and those over 70. Current interpretive data was last reviewed 2021. Blood 05/17/2024 9:34 PM MUSIC ASSISTANT 05/17/2024 10:20 PM MUSIC ASSISTANT us Tashi Thurston MD LAB BLOOD ORDERABLES Final R esult [facility] Department [place] [address] * Differential, auto (05/17/2024 9:34 PM MUSIC ASSISTANT) Neutrophil abs 4.5 1.5 - 6.5 K/cumm Imm gran abs 0.0 0.0 - 0.1 K/cumm [facility] Lymphocyte abs 1.2 0.8 - 3.3 K/cumm [facility] Monocyte abs 0.6 0.2 - 0.8 K/cumm [facility] Eosinophil abs 0.2 0.0 - 0.5 K/cumm [facility] Basophil abs 0.0 0.0 - 0.1 K/cumm [facility] Neutrophil pct 69.0 % [facility] Comment: Interpretive Data Percent cell count reference ranges are not reported, since discordance with absolute values may lead to misinterpretation of CBC data. Current Interpretive Data was last revised on 2017. Imm gran pct 0.3 % [facility] Comment: Interpretive Data Percent cell count reference ranges are not reported, since discordance with absolute values may lead to misinterpretation of CBC data. Current Interpretive Data was last revised on 2017. Lymphocyte pct 19.0 % [facility] Comment: Interpretive Data Percent cell count reference ranges are not reported, since discordance with absolute values may lead to misinterpretation of CBC data. Current Interpretive Data was last revised on 2017. Monocyte pct 8.8 % [facility] Comment: Interpretive Data Percent cell count reference ranges are not reported, since discordance with absolute values may lead to misinterpretation of CBC data. Current Interpretive Data was last revised on 2017. Eosinophil pct 2.6 % [facility] Comment: Interpretive Data Percent cell count reference ranges are not reported, since discordance with absolute values may lead to misinterpretation of CBC data. Current Interpretive Data was last revised on 2017. Basophil pct 0.3 % [facility] Comment: Interpretive Data Percent cell count reference ranges are not reported, since discordance with absolute values may lead to misinterpretation of CBC data. Current Interpretive Data was last revised on 2017. Blood 05/17/2024 9:34 PM MUSIC ASSISTANT 05/17/2024 10:21 PM MUSIC ASSISTANT us Tashi Thurston MD LAB BLOOD ORDERABLES Final R esult [facility] Department [place] [address] * (ABNORMAL) CBC with auto differential (05/17/2024 9:34 PM MUSIC ASSISTANT) Pathologist [facility] WBC 6.5 3.8 - 9.9 K/cumm Hgb 9.1(L) 13.0 - 17.5 g/dL [facility] Hct 28.7(L) 38.9 - 50.3 % [facility] Plt 207 150 - 400 K/cumm [facility] MPV 11.0 9.1 - 12.3 fL [facility] RBC 3.31(L) 4.30 - 5.80 M/cumm [facility] MCV 86.7 81.3 - 96.4 fL [facility] MCH 27.5 27.1 - 33.3 pg [facility] MCHC 31.7(L) 32.3 - 35.7 g/dL [facility] RDW CV 15.7(H) 11.1 - 14.9 % [facility] RDW SD 50.3(H) 35.7 - 48.1 fL [facility] NRBC abs 0.00 0.00 - 0.01 K/cumm [facility] Blood 05/17/2024 9:34 PM MUSIC ASSISTANT 05/17/2024 10:21 PM MUSIC ASSISTANT us Tashi Thurston MD LAB BLOOD ORDERABLES Final R esult Performing Organization Address City/[facility]/ZIP Co de Phone Number [facility] [place] [place] [address] * Magnesium (05/17/2024 9:34 PM MUSIC ASSISTANT) [facility] Magnesium 2.0 1.4 - 2.5 mg/dL Blood 05/17/2024 9:34 PM MUSIC ASSISTANT 05/17/2024 10:20 PM MUSIC ASSISTANT us Tashi Thurston MD LAB BLOOD ORDERABLES Final R esult [facility] Department [place] [address] * (ABNORMAL) Comprehensive metabolic panel (05/17/2024 9:34 PM MUSIC ASSISTANT) Sodium 141 135 - 145 mmol/L Potassium, pl 3.7 3.3 - 4.9 mmol/L [facility] Chloride 110 97 - 110 mmol/L [facility] CO2 26 22 - 32 mmol/L [facility] Anion gap 5 2 - 15 mmol/L [facility] BUN 14 6 - 25 mg/dL [facility] Creatinine 1.06 0.80 - 1.30 mg/dL [facility] Glucose 130 70 - 199 mg/dL [facility] Comment: Interpretive Data Fasting glucose >/= 126 mg/dl is diagnostic for diabetes. ?? Fasting is defined as no caloric intake for at least 8 hours. Fasting glucose between 100 mg/dl to 125 mg/dl is diagnostic of prediabetes. In a patient with classic symptoms of hyperglycemia or hyperglycemic crisis, a random glucose >/= 200 mg/dl is diagnostic for diabetes. In the absence of unequivocal hyperglycemia, results should be confirmed by repeat testing. The classification and Diagnosis of Diabetes Diabetes Care 202; 46: S19-S40. Current interpretive data was last revised 2022. Calcium 8.1(L) 8.5 - 10.3 mg/dL [facility] Bilirubin, total 0.3 0.1 - 1.2 mg/dL [facility] Protein, pl 5.9(L) 6.5 - 8.5 g/dL [facility] Albumin 2.5(L) 3.5 - 5.0 g/dL [facility] Alk phos 67 40 - 130 Units/L [facility] ALT 18 7 - 55 Units/L [facility] AST 26 10 - 50 Units/L [facility] Blood 05/17/2024 9:34 PM MUSIC ASSISTANT 05/17/2024 10:20 PM MUSIC ASSISTANT us Tashi Thurston MD LAB BLOOD ORDERABLES Final R esult [facility] Department [place] [address] * eGFR (05/16/2024 10:50 PM MUSIC ASSISTANT) eGFR 63 >=60 mL/min/1. 73 m2 Comment: Interpretive Data Reference Interval Normal ?>/= 90 mL/min/1.73m2 Mildly decreased* ? 60 - 89 mL/min/1.73m2 Mildly to moderately decreased ?45 - 59 mL/min/1.73m2 Moderately to severely decreased ??30 - 44 mL/min/1.73m2 Severely decreased ?15 - 29 mL/min/1.73m2 Kidney Failure ?< 15 ??mL/min/1.73m2 *Relative to young adult level Estimated glomerular filtration rate is determined by the 2020 CKD-EPI equation recommended by the National Kidney Foundation (A Unifying Approach to GFR Estimation: Recommendations of the NKF-ASK Task Force on Reassessing the Inclusion of Race in Diagnosing Kidney Disease, JASN 2020). The CKD-EPI equation should not be used for patients with unstable renal function and has not been validated in children and those over 70. Current interpretive data was last reviewed 2021. Blood 05/16/2024 10:5 0 PM MUSIC ASSISTANT 05/16/2024 11:12 PM MUSIC ASSISTANT us Tashi Thurston MD LAB BLOOD ORDERABLES Final R esult [facility] Department [place] [address] * Differential, auto (05/16/2024 10:50 PM MUSIC ASSISTANT) Neutrophil abs 5.2 1.5 - 6.5 K/cumm Imm gran abs 0.0 0.0 - 0.1 K/cumm [facility] Lymphocyte abs 1.2 0.8 - 3.3 K/cumm [facility] Monocyte abs 0.7 0.2 - 0.8 K/cumm [facility] Eosinophil abs 0.2 0.0 - 0.5 K/cumm [facility] Basophil abs 0.0 0.0 - 0.1 K/cumm [facility] Neutrophil pct 71.2 % [facility] Comment: Interpretive Data Percent cell count reference ranges are not reported, since discordance with absolute values may lead to misinterpretation of CBC data. Current Interpretive Data was last revised on 2017. Imm gran pct 0.4 % [facility] Comment: Interpretive Data Percent cell count reference ranges are not reported, since discordance with absolute values may lead to misinterpretation of CBC data. Current Interpretive Data was last revised on 2017. Lymphocyte pct 16.3 % [facility] Comment: Interpretive Data Percent cell count reference ranges are not reported, since discordance with absolute values may lead to misinterpretation of CBC data. Current Interpretive Data was last revised on 2017. Monocyte pct 9.4 % [facility] Comment: Interpretive Data Percent cell count reference ranges are not reported, since discordance with absolute values may lead to misinterpretation of CBC data. Current Interpretive Data was last revised on 2017. Eosinophil pct 2.3 % [facility] Comment: Interpretive Data Percent cell count reference ranges are not reported, since discordance with absolute values may lead to misinterpretation of CBC data. Current Interpretive Data was last revised on 2017. Basophil pct 0.4 % [facility] Comment: Interpretive Data Percent cell count reference ranges are not reported, since discordance with absolute values may lead to misinterpretation of CBC data. Current Interpretive Data was last revised on 2017. Blood 05/16/2024 10:5 0 PM MUSIC ASSISTANT 05/16/2024 11:12 PM MUSIC ASSISTANT us Tashi Thurston MD LAB BLOOD ORDERABLES Final R esult [facility] Department [place] [address] * (ABNORMAL) CBC with auto differential (05/16/2024 10:50 PM MUSIC ASSISTANT) Pathologist [facility] WBC 7.3 3.8 - 9.9 K/cumm Hgb 9.7(L) 13.0 - 17.5 g/dL [facility] Hct 30.1(L) 38.9 - 50.3 % [facility] Plt 234 150 - 400 K/cumm [facility] MPV 11.0 9.1 - 12.3 fL [facility] RBC 3.55(L) 4.30 - 5.80 M/cumm [facility] MCV 84.8 81.3 - 96.4 fL [facility] MCH 27.3 27.1 - 33.3 pg [facility] MCHC 32.2(L) 32.3 - 35.7 g/dL [facility] RDW CV 15.5(H) 11.1 - 14.9 % [facility] RDW SD 48.3(H) 35.7 - 48.1 fL [facility] NRBC abs 0.00 0.00 - 0.01 K/cumm [facility] Blood 05/16/2024 10:5 0 PM MUSIC ASSISTANT 05/16/2024 11:12 PM MUSIC ASSISTANT us Tashi Thurston MD LAB BLOOD ORDERABLES Final R esult Performing Organization Address City/[facility] Co de Phone Number [facility] [place] [address] * Magnesium (05/16/2024 10:50 PM MUSIC ASSISTANT) [facility] Magnesium 2.4 1.4 - 2.5 mg/dL Blood 05/16/2024 10:5 0 PM MUSIC ASSISTANT 05/16/2024 11:12 PM MUSIC ASSISTANT Tashi Thurston MD LAB BLOOD ORDERABLES Final R esult Performing Organization Address City/[facility]/ZIP Co de Phone Number [facility] Department [place] [address] * Creatine kinase (CK), total (05/16/2024 10:50 PM MUSIC ASSISTANT) CK 64 40 - 300 Units/L Blood 05/16/2024 10:5 0 PM MUSIC ASSISTANT 05/16/2024 11:12 PM MUSIC ASSISTANT Sandip Juarez MD LAB BLOOD ORDERABLES Final Result [facility] Department [place] [address] * (ABNORMAL) Comprehensive metabolic panel (05/16/2024 10:50 PM MUSIC ASSISTANT) Pathologist [facility] Sodium 140 135 - 145 mmol/L Potassium, pl 3.4 3.3 - 4.9 mmol/L [facility] Chloride 105 97 - 110 mmol/L [facility] CO2 26 22 - 32 mmol/L [facility] Anion gap 9 2 - 15 mmol/L [facility] BUN 7 6 - 25 mg/dL [facility] Creatinine 1.15 0.80 - 1.30 mg/dL [facility] Glucose 112 70 - 199 mg/dL [facility] Comment: Interpretive Data Fasting glucose >/= 126 mg/dl is diagnostic for diabetes. ?? Fasting is defined as no caloric intake for at least 8 hours. Fasting glucose between 100 mg/dl to 125 mg/dl is diagnostic of prediabetes. In a patient with classic symptoms of hyperglycemia or hyperglycemic crisis, a random glucose >/= 200 mg/dl is diagnostic for diabetes. In the absence of unequivocal hyperglycemia, results should be confirmed by repeat testing. The classification and Diagnosis of Diabetes Diabetes Care 2021; 46: S19-S40. Current interpretive data was last revised 2022. Calcium 8.6 8.5 - 10.3 mg/dL [facility] Bilirubin, total 0.5 0.1 - 1.2 mg/dL [facility] Protein, pl 6.6 6.5 - 8.5 g/dL [facility] Albumin 2.9(L) 3.5 - 5.0 g/dL [facility] Alk phos 63 40 - 130 Units/L [facility] ALT 15 7 - 55 Units/L [facility] AST 33 10 - 50 Units/L [facility] Blood 05/16/2024 10:5 0 PM MUSIC ASSISTANT 05/16/2024 11:12 PM MUSIC ASSISTANT us Tashi Thurston MD LAB BLOOD ORDERABLES Final R esult [facility] Department [place] [address] * TRANSTHORACIC ECHO (TTE) COMPLETE W DOPPLER/CF W CONTRAST (05/16/2024 11:47 AM MUSIC ASSISTANT) LV EF 61 % CARDIOREPORT Anatomical Region Laterality Modality Ultrasound 05/16/2024 10:4 5 AM MUSIC ASSISTANT Narrative 05/16/2024 1:42 PM MUSIC ASSISTANT Patient name: Kelsie Vo Date of test: 05/16/2024 Type of test: TTE w/Doppler Hospital #: 0 Date of : 1940 (M) Safety Spec: Kulwant Cole RDCS Referring Physician: SANDIP JUAREZ MD Contrast Agent: 0.30 ml Definity Administered, (1.20 ml wasted). Contrast Administered by: Db Lazar RN Supervised/Interpreted by: Singh Ventura MD. Diagnosis: Location: [facility] Reason for test: MRSA bacteremia, looking for vegetations MV Structure: Normal, ?MV Motion: Normal, ?? Mitral Annulus: Normal AV Structure: bioprosthesis and is Normal, ?? AV Motion: Normal Aotic root: Normal, ?TM: Normal, ?? PV: Normal Valvular Vegetations: none seen, ?Mass/Thrombi: none seen RA: Normal Measurements: ?M-Mode ?Normal ? Aotic Root: ? <3.8 ? LA: ? <4.0 ? RV: ? <2.8 ? LV(ED): ? <5.7 ? LV(ES): ? Variable ?2D Linear Normal ? Aotic Root: 4.0 cm ?<4.0 ? Ao Indexed: 2.1 cm/M2 <2.0 ? LA: ? 5.5 cm ?<4.0 ? RV: ? 5.5 cm ?<4.2 ? LV(ED): ? 5.4 cm ?<5.9 ? LV(ES): ? 4.0 cm ?<4.0 ?2D Vol. ?? Normal ?Indexed ?? Indexed Normal RA: ? 96.0 ml ? 49.4 ml/M2 ?11-39 ? LA: ? 90.0 ml ? 46.3 ml/M2 ?16-34 ? RV: ? <12.7 ? LV(ED): ? 170.0 ml ??62-150 ?87.5 ml/M2 ?<75 ? LV(ES): ? 67.0 ml ?? 21-61 ? 34.5 ml/M2 ?<32 ?3D Vol. ? Indexed Normal LV(ED): ?<75 ? LV(ES): ?<32 ? LV EF: 61 % ?? (Normal: >=52%) ?? LV Septum: 1.1 cm ?(Normal: <1.0 cm) Wall Motion Scoring (1=Normal 2=Hypo 3=Akinetic 4=Dyskin./Aneurysm 0=Not visualized) Parasternal Long [place]:MAS=1 BAS=1 MIL=1 RENETTA=1 Parasternal Short [place]:MAS=1 MIS=1 NH=1 MIL=1 MAL=1 MA=1 Apical 4 Chambers:=1 MIS=1 BIS=1 BAL=1 MAL=1 AL=1 AC=1 Apical 2 Chambers:AI=1 NH=1 BI=1 BA=1 MA=1 AA=1 AC=1 LV Global Longitudinal Strain: -16% ??(Normal <-17%) RV Global Longitudinal Strain: LV Function: Normal LV Ejection Fraction, (EF=52-72%) RV Function: Normal Septal Motion: Normal Pericardial Effusion: moderate Atrial Septum: Normal DOPPLER/COLOR FLOW DOPPLER RESULTS: Diastolic Function: Normal Tricuspid Valve: mild TV regurgitation Pulmonic Valve: normal PV AV Regurgitation: No AR seen AV Stenosis: no AV Area: ??cm2 AV Pressure Gradient (mmHg): Mean: 0, Peak:0 MV Regurgitation: Mild MR MV Stenosis: no MS MV Area: ??cm2 MV Pressure Gradient (mmHg): Mean: 0 MV ERO: ??cm Regurg. Vol.: ??ml/beat Regurg. Frac.: ??% PA Pressure: 36 mmHg DOPPLER/COLOR FOLOW DOPPLER COMMENTS: No AR seen, Mild MR, no , no MS, mild TV regurgitation, normal PV. Diastolic function: Normal aoSinus 4.0 cm CONTRAST: 0.30 ml Definity Administered, (1.20 ml wasted). SUMMARY: RV wire. Moderate pericardial effusion without hemodynamic significance. Mildly dilated LV with normal function normal wall thickness and minimally decreased global longitudinal strain. EF 61% Markedly dilated RV with mildly decreased systolic function. Moderate LAE. Moderatel OZ. Mild MR. Mild TR. PASP 36mmHg (normal) ??Normal Inferior vena cava. Normal aorta. Confirmed on ??05/16/2024 - 13:42:55 by Singh Ventura MD. By signing this report, the attending senior bioinformatics scientist certifies that he or she has personally supervised and interpreted the echocardiogram and has reviewed and or edited and agrees with the written comments contained within the report. Procedure Note Shade Ventura MD PhD - 05/16/2024 Patient name: Kelsie Vo Date of test: 05/16/2024 Type of test: TTE w/Doppler [facility] #: 0 Date of : 1940 (M) Safety Spec: Kulwant Cole VELMA Referring Physician: SANDIP JUAREZ MD Contrast Agent: 0.30 ml Definity Administered, (1.20 ml wasted). Contrast Administered by: Db Lazar RN Supervised/Interpreted by: Singh Ventura MD. Diagnosis: Location: [facility] Reason for test: MRSA bacteremia, looking for vegetations MV Structure: Normal, MV Motion: Normal, Mitral Annulus: Normal AV Structure: bioprosthesis and is Normal, AV Motion: Normal Aotic root: Normal, TM: Normal, PV: Normal Valvular Vegetations: none seen, Mass/Thrombi: none seen RA: Normal Measurements: M-Mode Normal Aotic Root: <3.8 LA: <4.0 RV: <2.8 LV(ED): <5.7 LV(ES): Variable 2D Linear Normal Aotic Root: 4.0 cm <4.0 Ao Indexed: 2.1 cm/M2 <2.0 LA: 5.5 cm <4.0 RV: 5.5 cm <4.2 LV(ED): 5.4 cm <5.9 LV(ES): 4.0 cm <4.0 2D Vol. Normal Indexed Indexed Normal RA: 96.0 ml 49.4 ml/M2 11-39 LA: 90.0 ml 46.3 ml/M2 16-34 RV: <12.7 LV(ED): 170.0 ml 62-150 87.5 ml/M2 <75 LV(ES): 67.0 ml 21-61 34.5 ml/M2 <32 3D Vol. Indexed Normal LV(ED): <75 LV(ES): <32 LV EF: 61 % (Normal: >=52%) LV Septum: 1.1 cm (Normal: <1.0 cm) Wall Motion Scoring (1=Normal 2=Hypo 3=Akinetic 4=Dyskin./Aneurysm 0=Not visualized) Parasternal Long [place]:MAS=1 BAS=1 MIL=1 RENETTA=1 Parasternal Short [place]:MAS=1 MIS=1 NH=1 MIL=1 MAL=1 MA=1 Apical 4 Chambers:=1 MIS=1 BIS=1 BAL=1 MAL=1 AL=1 AC=1 Apical 2 Chambers:AI=1 NH=1 BI=1 BA=1 MA=1 AA=1 AC=1 LV Global Longitudinal Strain: -16% (Normal <-17%) RV Global Longitudinal Strain: LV Function: Normal LV Ejection Fraction, (EF=52-72%) RV Function: Normal Septal Motion: Normal Pericardial Effusion: moderate Atrial Septum: Normal DOPPLER/COLOR FLOW DOPPLER RESULTS: Diastolic Function: Normal Tricuspid Valve: mild TV regurgitation Pulmonic Valve: normal PV AV Regurgitation: No AR seen AV Stenosis: no AV Area: cm2 AV Pressure Gradient (mmHg): Mean: 0, Peak:0 MV Regurgitation: Mild MR MV Stenosis: no MS MV Area: cm2 MV Pressure Gradient (mmHg): Mean: 0 MV ERO: cm Regurg. Vol.: ml/beat Regurg. Frac.: % PA Pressure: 36 mmHg DOPPLER/COLOR FOLOW DOPPLER COMMENTS: No AR seen, Mild MR, no , no MS, mild TV regurgitation, normal PV. Diastolic function: Normal aoSinus 4.0 cm CONTRAST: 0.30 ml Definity Administered, (1.20 ml wasted). SUMMARY: RV wire. Moderate pericardial effusion without hemodynamic significance. Mildly dilated LV with normal function normal wall thickness and minimally decreased global longitudinal strain. EF 61% Markedly dilated RV with mildly decreased systolic function. Moderate LAE. Moderatel OZ. Mild MR. Mild TR. PASP 36mmHg (normal) Normal Inferior vena cava. Normal aorta. Confirmed on 05/16/2024 - 13:42:55 by Singh Ventura MD. By signing this report, the attending senior bioinformatics scientist certifies that he or she has personally supervised and interpreted the echocardiogram and has reviewed and or edited and agrees with the written comments contained within the report. us Sandip Juarez MD CV ECHO PROCEDURES Final Re sult * eGFR (05/15/2024 9:39 PM MUSIC ASSISTANT) eGFR 65 >=60 mL/min/1. 73 m2 Comment: Interpretive Data Reference Interval Normal ?>/= 90 mL/min/1.73m2 Mildly decreased* ? 60 - 89 mL/min/1.73m2 Mildly to moderately decreased ?45 - 59 mL/min/1.73m2 Moderately to severely decreased ??30 - 44 mL/min/1.73m2 Severely decreased ?15 - 29 mL/min/1.73m2 Kidney Failure ?< 15 ??mL/min/1.73m2 *Relative to young adult level Estimated glomerular filtration rate is determined by the 2020 CKD-EPI equation recommended by the National Kidney Foundation (A Unifying Approach to GFR Estimation: Recommendations of the NKF-ASK Task Force on Reassessing the Inclusion of Race in Diagnosing Kidney Disease, JASN 2020). The CKD-EPI equation should not be used for patients with unstable renal function and has not been validated in children and those over 70. Current interpretive data was last reviewed 2021. Blood 05/15/2024 9:39 PM MUSIC ASSISTANT 05/15/2024 10:11 PM MUSIC ASSISTANT us Tashi Thurston MD LAB BLOOD ORDERABLES Final R esult [facility] Department of Laboratories [place], [place] [id number] * (ABNORMAL) Differential, auto (05/15/2024 9:39 PM MUSIC ASSISTANT) Neutrophil abs 6.9(H) 1.5 - 6.5 K/cumm Imm gran abs 0.0 0.0 - 0.1 K/cumm [facility] Lymphocyte abs 0.9 0.8 - 3.3 K/cumm [facility] Monocyte abs 0.7 0.2 - 0.8 K/cumm [facility] Eosinophil abs 0.1 0.0 - 0.5 K/cumm [facility] Basophil abs 0.0 0.0 - 0.1 K/cumm [facility] Neutrophil pct 80.9 % [facility] Comment: Interpretive Data Percent cell count reference ranges are not reported, since discordance with absolute values may lead to misinterpretation of CBC data. Current Interpretive Data was last revised on 2017. Imm gran pct 0.4 % [facility] Comment: Interpretive Data Percent cell count reference ranges are not reported, since discordance with absolute values may lead to misinterpretation of CBC data. Current Interpretive Data was last revised on 2017. Lymphocyte pct 10.1 % [facility] Comment: Interpretive Data Percent cell count reference ranges are not reported, since discordance with absolute values may lead to misinterpretation of CBC data. Current Interpretive Data was last revised on 2017. Monocyte pct 7.6 % [facility] Comment: Interpretive Data Percent cell count reference ranges are not reported, since discordance with absolute values may lead to misinterpretation of CBC data. Current Interpretive Data was last revised on 2017. Eosinophil pct 0.8 % [facility] Comment: Interpretive Data Percent cell count reference ranges are not reported, since discordance with absolute values may lead to misinterpretation of CBC data. Current Interpretive Data was last revised on 2017. Basophil pct 0.2 % [facility] Comment: Interpretive Data Percent cell count reference ranges are not reported, since discordance with absolute values may lead to misinterpretation of CBC data. Current Interpretive Data was last revised on 2017. Blood 05/15/2024 9:39 PM MUSIC ASSISTANT 05/15/2024 10:14 PM MUSIC ASSISTANT us Tashi Thurston MD LAB BLOOD ORDERABLES Final R esult Performing Organization Address City/State/[facility] de Phone Number [facility] Department [place] [address] * (ABNORMAL) CBC with auto differential (05/15/2024 9:39 PM MUSIC ASSISTANT) Pathologist [facility] WBC 8.5 3.8 - 9.9 K/cumm Hgb 9.8(L) 13.0 - 17.5 g/dL [facility] Hct 31.0(L) 38.9 - 50.3 % [facility] Plt 228 150 - 400 K/cumm [facility] MPV 11.0 9.1 - 12.3 fL [facility] RBC 3.62(L) 4.30 - 5.80 M/cumm [facility] MCV 85.6 81.3 - 96.4 fL [facility] MCH 27.1 27.1 - 33.3 pg [facility] MCHC 31.6(L) 32.3 - 35.7 g/dL [facility] RDW CV 15.7(H) 11.1 - 14.9 % [facility] RDW SD 49.0(H) 35.7 - 48.1 fL [facility] NRBC abs 0.00 0.00 - 0.01 K/cumm [facility] Blood 05/15/2024 9:39 PM MUSIC ASSISTANT 05/15/2024 10:14 PM MUSIC ASSISTANT us Tashi Thurston MD LAB BLOOD ORDERABLES Final R esult Performing Organization Address City/State/[facility] Co de Phone Number [facility] Department [place] [address] * Magnesium (05/15/2024 9:39 PM MUSIC ASSISTANT) [facility] Magnesium 2.1 1.4 - 2.5 mg/dL Blood 05/15/2024 9:39 PM MUSIC ASSISTANT 05/15/2024 10:11 PM MUSIC ASSISTANT us Tashi Thurston MD LAB BLOOD ORDERABLES Final R esult Performing Organization Address [facility]/ZIP Co de Phone Number [facility] Department [place] [address] * (ABNORMAL) Comprehensive metabolic panel (05/15/2024 9:39 PM MUSIC ASSISTANT) Sodium 143 135 - 145 mmol/L Potassium, pl 3.9 3.3 - 4.9 mmol/L [facility] Chloride 108 97 - 110 mmol/L [facility] CO2 24 22 - 32 mmol/L [facility] Anion gap 11 2 - 15 mmol/L [facility] BUN 11 6 - 25 mg/dL [facility] Creatinine 1.12 0.80 - 1.30 mg/dL [facility] Glucose 83 70 - 199 mg/dL [facility] Comment: Interpretive Data Fasting glucose >/= 126 mg/dl is diagnostic for diabetes. ?? Fasting is defined as no caloric intake for at least 8 hours. Fasting glucose between 100 mg/dl to 125 mg/dl is diagnostic of prediabetes. In a patient with classic symptoms of hyperglycemia or hyperglycemic crisis, a random glucose >/= 200 mg/dl is diagnostic for diabetes. In the absence of unequivocal hyperglycemia, results should be confirmed by repeat testing. The classification and Diagnosis of Diabetes Diabetes Care 202; 46: S19-S40. Current interpretive data was last revised 2022. Calcium 8.5 8.5 - 10.3 mg/dL [facility] Bilirubin, total 0.5 0.1 - 1.2 mg/dL [facility] Protein, pl 6.1(L) 6.5 - 8.5 g/dL [facility] Albumin 2.6(L) 3.5 - 5.0 g/dL [facility] Alk phos 56 40 - 130 Units/L [facility] ALT 17 7 - 55 Units/L [facility] AST 33 10 - 50 Units/L [facility] Blood 05/15/2024 9:39 PM MUSIC ASSISTANT 05/15/2024 10:11 PM MUSIC ASSISTANT us Tashi Thurston MD LAB BLOOD ORDERABLES Final R esult Performing Organization Address [facility]/ZIP Co de Phone Number [facility] Department [place] [address] * eGFR (05/14/2024 10:49 PM MUSIC ASSISTANT) Pathologist [facility] eGFR 64 >=60 mL/min/1. 73 m2 Comment: Interpretive Data Reference Interval Normal ?>/= 90 mL/min/1.73m2 Mildly decreased* ? 60 - 89 mL/min/1.73m2 Mildly to moderately decreased ?45 - 59 mL/min/1.73m2 Moderately to severely decreased ??30 - 44 mL/min/1.73m2 Severely decreased ?15 - 29 mL/min/1.73m2 Kidney Failure ?< 15 ??mL/min/1.73m2 *Relative to young adult level Estimated glomerular filtration rate is determined by the 2020 CKD-EPI equation recommended by the National Kidney Foundation (A Unifying Approach to GFR Estimation: Recommendations of the NKF-ASK Task Force on Reassessing the Inclusion of Race in Diagnosing Kidney Disease, JASN 2020). The CKD-EPI equation should not be used for patients with unstable renal function and has not been validated in children and those over 70. Current interpretive data was last reviewed 2021. Blood 05/14/2024 10:4 9 PM MUSIC ASSISTANT 05/14/2024 11:36 PM MUSIC ASSISTANT us Tashi Thurston MD LAB BLOOD ORDERABLES Final R esult Performing Organization Address [facility] Co de Phone Number [facility] Department [place] [address] * Differential, auto (05/14/2024 10:49 PM MUSIC ASSISTANT) Pathologist [facility] Neutrophil abs 5.8 1.5 - 6.5 K/cumm Imm gran abs 0.0 0.0 - 0.1 K/cumm [facility] Lymphocyte abs 1.0 0.8 - 3.3 K/cumm [facility] Monocyte abs 0.6 0.2 - 0.8 K/cumm [facility] Eosinophil abs 0.2 0.0 - 0.5 K/cumm [facility] Basophil abs 0.0 0.0 - 0.1 K/cumm [facility] Neutrophil pct 75.9 % [facility] Comment: Interpretive Data Percent cell count reference ranges are not reported, since discordance with absolute values may lead to misinterpretation of CBC data. Current Interpretive Data was last revised on 2017. Imm gran pct 0.4 % [facility] Comment: Interpretive Data Percent cell count reference ranges are not reported, since discordance with absolute values may lead to misinterpretation of CBC data. Current Interpretive Data was last revised on 2017. Lymphocyte pct 13.5 % [facility] Comment: Interpretive Data Percent cell count reference ranges are not reported, since discordance with absolute values may lead to misinterpretation of CBC data. Current Interpretive Data was last revised on 2017. Monocyte pct 7.8 % [facility] Comment: Interpretive Data Percent cell count reference ranges are not reported, since discordance with absolute values may lead to misinterpretation of CBC data. Current Interpretive Data was last revised on 2017. Eosinophil pct 2.1 % [facility] Comment: Interpretive Data Percent cell count reference ranges are not reported, since discordance with absolute values may lead to misinterpretation of CBC data. Current Interpretive Data was last revised on 2017. Basophil pct 0.3 % [facility] Comment: Interpretive Data Percent cell count reference ranges are not reported, since discordance with absolute values may lead to misinterpretation of CBC data. Current Interpretive Data was last revised on 2017. Blood 05/14/2024 10:4 9 PM MUSIC ASSISTANT 05/14/2024 11:35 PM MUSIC ASSISTANT us Tashi Thurston MD LAB BLOOD ORDERABLES Final R esult [facility] Department [place] [address] * (ABNORMAL) CBC with auto differential (05/14/2024 10:49 PM MUSIC ASSISTANT) [facility] WBC 7.6 3.8 - 9.9 K/cumm Hgb 9.8(L) 13.0 - 17.5 g/dL [facility] Hct 30.5(L) 38.9 - 50.3 % [facility] Plt 218 150 - 400 K/cumm [facility] MPV 11.3 9.1 - 12.3 fL [facility] RBC 3.58(L) 4.30 - 5.80 M/cumm [facility] MCV 85.2 81.3 - 96.4 fL [facility] MCH 27.4 27.1 - 33.3 pg [facility] MCHC 32.1(L) 32.3 - 35.7 g/dL [facility] RDW CV 15.8(H) 11.1 - 14.9 % [facility] RDW SD 49.7(H) 35.7 - 48.1 fL [facility] NRBC abs 0.00 0.00 - 0.01 K/cumm [facility] Blood 05/14/2024 10:4 9 PM MUSIC ASSISTANT 05/14/2024 11:35 PM MUSIC ASSISTANT us Tashi Thurston MD LAB BLOOD ORDERABLES Final R esult Performing Organization Address [facility] Co de Phone Number [facility] Department [place] [address] * Magnesium (05/14/2024 10:49 PM MUSIC ASSISTANT) [facility] Magnesium 2.1 1.4 - 2.5 mg/dL Blood 05/14/2024 10:4 9 PM MUSIC ASSISTANT 05/14/2024 11:25 PM MUSIC ASSISTANT Tashi Thurston MD LAB BLOOD ORDERABLES Final R esult Performing Organization Address City/[facility] Co de Phone Number [facility] Department [place] [address] * (ABNORMAL) Comprehensive metabolic panel (05/14/2024 10:49 PM MUSIC ASSISTANT) Sodium 141 135 - 145 mmol/L Potassium, pl 3.6 3.3 - 4.9 mmol/L [facility] Chloride 107 97 - 110 mmol/L [facility] CO2 23 22 - 32 mmol/L [facility] Anion gap 11 2 - 15 mmol/L [facility] BUN 10 6 - 25 mg/dL [facility] Creatinine 1.13 0.80 - 1.30 mg/dL [facility] Glucose 87 70 - 199 mg/dL [facility] Comment: Interpretive Data Fasting glucose >/= 126 mg/dl is diagnostic for diabetes. ?? Fasting is defined as no caloric intake for at least 8 hours. Fasting glucose between 100 mg/dl to 125 mg/dl is diagnostic of prediabetes. In a patient with classic symptoms of hyperglycemia or hyperglycemic crisis, a random glucose >/= 200 mg/dl is diagnostic for diabetes. In the absence of unequivocal hyperglycemia, results should be confirmed by repeat testing. The classification and Diagnosis of Diabetes Diabetes Care 202; 46: S19-S40. Current interpretive data was last revised 2022. Calcium 8.5 8.5 - 10.3 mg/dL [facility] Bilirubin, total 0.4 0.1 - 1.2 mg/dL [facility] Protein, pl 6.2(L) 6.5 - 8.5 g/dL [facility] Albumin 2.6(L) 3.5 - 5.0 g/dL [facility] Alk phos 61 40 - 130 Units/L [facility] ALT 19 7 - 55 Units/L [facility] AST 21 10 - 50 Units/L [facility] Blood 05/14/2024 10:4 9 PM MUSIC ASSISTANT 05/14/2024 11:25 PM MUSIC ASSISTANT us Tashi Thurston MD LAB BLOOD ORDERABLES Final R esult [facility] Department [place] [address] * POCT glucose (05/14/2024 12:18 PM MUSIC ASSISTANT) Glucose, POC 100 70 - 199 mg/dL Blood 05/14/2024 12:1 8 PM MUSIC ASSISTANT 05/14/2024 12:18 PM MUSIC ASSISTANT Sandip Juarez MD LAB POCT ORDERABLES - DEVIC E Final Result [facility] Department [place] [address] * Blood culture Blood (05/14/2024 9:52 AM MUSIC ASSISTANT) Report Final Report: No growth Blood 05/14/2024 9:52 AM MUSIC ASSISTANT 05/14/2024 11:11 AM MUSIC ASSISTANT Narrative [facility] - 05/18/2024 12:00 PM MUSIC ASSISTANT From a different site than #1. Collection->Peripheral 1. ?Blood cultures are incubated for 4 days on a continuously monitored blood culture system. The first report of a negative culture is issued within 24 hours of receipt of the specimen in the laboratory. 2. ?Positive culture results are reported as soon as they are detected. 3. ?The most important factor for detection of microbes in the setting of bloodstream infection is the volume of blood submitted for culture. Failure to collect an optimal blood volume can result in false negative blood cultures. 4. ? For pediatric patients, the recommended blood volume to collect follows a weight based strategy. See the electronic test catalog for collection instructions. 5. ?For positive blood cultures, a rapid molecular test may be performed for organism identification using the jesus ePlex blood culture identification panel for gram positive (BCID-GP) and gram negative (BCID-GN) organisms. This nucleic acid amplification test detects microbial DNA in positive blood culture broth. This assay has been cleared by the [place] Food and Drug Administration and its performance characteristics have been verified by the [facility] Microbiology Laboratory. For questions about this culture, contact the Microbiology Laboratory at [phone]. Interpretive data was last revised on 24. Sandip Juarez MD LAB MICROBIOLOGY - GENERAL ORDERABLES Final Result Performing Organization Address [facility] Co de Phone Number [facility] Department [place] [address] * Blood culture Blood (05/14/2024 9:52 AM MUSIC ASSISTANT) Report Final Report: No growth Blood 05/14/2024 9:52 AM MUSIC ASSISTANT 05/14/2024 10:55 AM MUSIC ASSISTANT Narrative [facility] - 05/18/2024 12:00 PM MUSIC ASSISTANT Collection->Peripheral 1. ?Blood cultures are incubated for 4 days on a continuously monitored blood culture system. The first report of a negative culture is issued within 24 hours of receipt of the specimen in the laboratory. 2. ?Positive culture results are reported as soon as they are detected. 3. ?The most important factor for detection of microbes in the setting of bloodstream infection is the volume of blood submitted for culture. Failure to collect an optimal blood volume can result in false negative blood cultures. 4. ? For pediatric patients, the recommended blood volume to collect follows a weight based strategy. See the electronic test catalog for collection instructions. 5. ?For positive blood cultures, a rapid molecular test may be performed for organism identification using the jesus ePlex blood culture identification panel for gram positive (BCID-GP) and gram negative (BCID-GN) organisms. This nucleic acid amplification test detects microbial DNA in positive blood culture broth. This assay has been cleared by the [place] Food and Drug Administration and its performance characteristics have been verified by the [facility] Microbiology Laboratory. For questions about this culture, contact the Microbiology Laboratory at [phone]. Interpretive data was last revised on 24. Sandip Juarez MD LAB MICROBIOLOGY - GENERAL ORDERABLES Final Result Performing Organization Address [facility]/ZIP Co de Phone Number [facility] Department [place] [address] * eGFR (05/13/2024 9:09 PM MUSIC ASSISTANT) Pathologist [facility] eGFR 61 >=60 mL/min/1. 73 m2 Comment: Interpretive Data Reference Interval Normal ?>/= 90 mL/min/1.73m2 Mildly decreased* ? 60 - 89 mL/min/1.73m2 Mildly to moderately decreased ?45 - 59 mL/min/1.73m2 Moderately to severely decreased ??30 - 44 mL/min/1.73m2 Severely decreased ?15 - 29 mL/min/1.73m2 Kidney Failure ?< 15 ??mL/min/1.73m2 *Relative to young adult level Estimated glomerular filtration rate is determined by the 2020 CKD-EPI equation recommended by the National Kidney Foundation (A Unifying Approach to GFR Estimation: Recommendations of the NKF-ASK Task Force on Reassessing the Inclusion of Race in Diagnosing Kidney Disease, JASN 2020). The CKD-EPI equation should not be used for patients with unstable renal function and has not been validated in children and those over 70. Current interpretive data was last reviewed 2021. Blood 05/13/2024 9:09 PM MUSIC ASSISTANT 05/13/2024 10:16 PM MUSIC ASSISTANT us Tashi Thurston MD LAB BLOOD ORDERABLES Final R esult [facility] Department [place] [address] * (ABNORMAL) Differential, auto (05/13/2024 9:09 PM MUSIC ASSISTANT) Pathologist [facility] Neutrophil abs 8.0(H) 1.5 - 6.5 K/cumm Imm gran abs 0.1 0.0 - 0.1 K/cumm [facility] Lymphocyte abs 0.9 0.8 - 3.3 K/cumm [facility] Monocyte abs 0.6 0.2 - 0.8 K/cumm [facility] Eosinophil abs 0.1 0.0 - 0.5 K/cumm [facility] Basophil abs 0.0 0.0 - 0.1 K/cumm [facility] Neutrophil pct 82.5 % [facility] Comment: Interpretive Data Percent cell count reference ranges are not reported, since discordance with absolute values may lead to misinterpretation of CBC data. Current Interpretive Data was last revised on 2017. Imm gran pct 0.7 % [facility] Comment: Interpretive Data Percent cell count reference ranges are not reported, since discordance with absolute values may lead to misinterpretation of CBC data. Current Interpretive Data was last revised on 2017. Lymphocyte pct 9.4 % [facility] Comment: Interpretive Data Percent cell count reference ranges are not reported, since discordance with absolute values may lead to misinterpretation of CBC data. Current Interpretive Data was last revised on 2017. Monocyte pct 6.0 % [facility] Comment: Interpretive Data Percent cell count reference ranges are not reported, since discordance with absolute values may lead to misinterpretation of CBC data. Current Interpretive Data was last revised on 2017. Eosinophil pct 1.1 % [facility] Comment: Interpretive Data Percent cell count reference ranges are not reported, since discordance with absolute values may lead to misinterpretation of CBC data. Current Interpretive Data was last revised on 2017. Basophil pct 0.3 % [facility] Comment: Interpretive Data Percent cell count reference ranges are not reported, since discordance with absolute values may lead to misinterpretation of CBC data. Current Interpretive Data was last revised on 2017. Blood 05/13/2024 9:09 PM MUSIC ASSISTANT 05/13/2024 10:19 PM MUSIC ASSISTANT us Tashi Thurston MD LAB BLOOD ORDERABLES Final R esult [facility] [place] [address] * (ABNORMAL) CBC with auto differential (05/13/2024 9:09 PM MUSIC ASSISTANT) [facility] WBC 9.7 3.8 - 9.9 K/cumm Hgb 9.8(L) 13.0 - 17.5 g/dL [facility] Hct 29.9(L) 38.9 - 50.3 % [facility] Plt 194 150 - 400 K/cumm [facility] MPV 11.3 9.1 - 12.3 fL [facility] RBC 3.56(L) 4.30 - 5.80 M/cumm [facility] MCV 84.0 81.3 - 96.4 fL [facility] MCH 27.5 27.1 - 33.3 pg [facility] MCHC 32.8 32.3 - 35.7 g/dL [facility] RDW CV 15.7(H) 11.1 - 14.9 % [facility] RDW SD 48.5(H) 35.7 - 48.1 fL [facility] NRBC abs 0.00 0.00 - 0.01 K/cumm [facility] Blood 05/13/2024 9:09 PM MUSIC ASSISTANT 05/13/2024 10:19 PM MUSIC ASSISTANT us Tashi Thurston MD LAB BLOOD ORDERABLES Final R esult Performing Organization Address City/[facility] Co de Phone Number [facility] Department [place] [address] * Magnesium (05/13/2024 9:09 PM MUSIC ASSISTANT) [facility] Magnesium 2.1 1.4 - 2.5 mg/dL Blood 05/13/2024 9:09 PM MUSIC ASSISTANT 05/13/2024 10:16 PM MUSIC ASSISTANT us Tashi Thurston MD LAB BLOOD ORDERABLES Final R esult Performing Organization Address City/[facility]/ZIP Co de Phone Number [facility] Department [place] [address] * (ABNORMAL) Comprehensive metabolic panel (05/13/2024 9:09 PM MUSIC ASSISTANT) Sodium 140 135 - 145 mmol/L Potassium, pl 3.7 3.3 - 4.9 mmol/L [facility] Chloride 106 97 - 110 mmol/L [facility] CO2 26 22 - 32 mmol/L [facility] Anion gap 8 2 - 15 mmol/L [facility] BUN 11 6 - 25 mg/dL [facility] Creatinine 1.18 0.80 - 1.30 mg/dL [facility] Glucose 124 70 - 199 mg/dL [facility] Comment: Interpretive Data Fasting glucose >/= 126 mg/dl is diagnostic for diabetes. ?? Fasting is defined as no caloric intake for at least 8 hours. Fasting glucose between 100 mg/dl to 125 mg/dl is diagnostic of prediabetes. In a patient with classic symptoms of hyperglycemia or hyperglycemic crisis, a random glucose >/= 200 mg/dl is diagnostic for diabetes. In the absence of unequivocal hyperglycemia, results should be confirmed by repeat testing. The classification and Diagnosis of Diabetes Diabetes Care 202; 46: S19-S40. Current interpretive data was last revised 2022. Calcium 8.6 8.5 - 10.3 mg/dL [facility] Bilirubin, total 0.3 0.1 - 1.2 mg/dL [facility] Protein, pl 6.1(L) 6.5 - 8.5 g/dL [facility] Albumin 2.7(L) 3.5 - 5.0 g/dL [facility] Alk phos 65 40 - 130 Units/L [facility] ALT 21 7 - 55 Units/L [facility] AST 24 10 - 50 Units/L [facility] Blood 05/13/2024 9:09 PM MUSIC ASSISTANT 05/13/2024 10:16 PM MUSIC ASSISTANT us Tashi Thurston MD LAB BLOOD ORDERABLES Final R esult [facility] Department [place] [address] * CT Head WO Contrast (05/13/2024 8:04 PM MUSIC ASSISTANT) Anatomical Region Laterality Modality Head and Neck N/A Computed Tomogra phy 05/13/2024 8:37 PM MUSIC ASSISTANT Impressions 05/13/2024 8:41 PM MUSIC ASSISTANT No acute intracranial process. Dictated by: Saul Mckeon MD The radiology attending physician has personally reviewed this study, and had reviewed and/or edited this written report and agrees with it. Electronically signed by: Gabi Chou M.D. Narrative 05/13/2024 8:41 PM MUSIC ASSISTANT EXAMINATION: CT head without contrast HISTORY: 83-year-old male with history of dementia admitted for MRSA bacteremia. ??Mental status change. TECHNIQUE: CT of the head was performed with images acquired from skull base to vertex without intravenous contrast. COMPARISON: CT 03/08/2024 FINDINGS: Scattered ill-defined hypodensities in the periventricular and subcortical white matter are nonspecific, likely on the basis of chronic small vessel ischemic change. There is parenchymal volume loss. There are atherosclerotic calcifications of the intracranial vessels. ??Small mucous retention cyst in the sphenoid sinus and bilateral maxillary sinuses. ??Partially imaged dental disease. There is no acute intracranial hemorrhage. No mass effect or midline shift is present. The jacobs-white matter differentiation is normal. The visualized portions of the orbits are normal. The visualized portions of the mastoids are normal. No fractures are identified. Procedure Note Gabi Chou MD - 05/13/2024 EXAMINATION: CT head without contrast HISTORY: 83-year-old male with history of dementia admitted for MRSA bacteremia. Mental status change. TECHNIQUE: CT of the head was performed with images acquired from skull base to vertex without intravenous contrast. COMPARISON: CT 03/08/2024 FINDINGS: Scattered ill-defined hypodensities in the periventricular and subcortical white matter are nonspecific, likely on the basis of chronic small vessel ischemic change. There is parenchymal volume loss. There are atherosclerotic calcifications of the intracranial vessels. Small mucous retention cyst in the sphenoid sinus and bilateral maxillary sinuses. Partially imaged dental disease. There is no acute intracranial hemorrhage. No mass effect or midline shift is present. The jacobs-white matter differentiation is normal. The visualized portions of the orbits are normal. The visualized portions of the mastoids are normal. No fractures are identified. IMPRESSION: No acute intracranial process. Dictated by: Saul Mckeon MD The radiology attending physician has personally reviewed this study, and had reviewed and/or edited this written report and agrees with it. Electronically signed by: Gabi Chou M.D. Sandip Juarez MD IMG CT PROCEDURES Final Res ult * XR Chest PA Lateral 2 Views (05/13/2024 8:30 AM MUSIC ASSISTANT) Anatomical Region Laterality Modality Body, Chest N/A Computed Radiogr aphy 05/13/2024 12:4 7 PM MUSIC ASSISTANT Impressions 05/13/2024 12:47 PM MUSIC ASSISTANT Comparison film is dated 03/31/2024. Changes of median sternotomy. 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 ??No broken or abandoned leads. Worsening bibasilar opacities, left greater than right are seen, which likely represent atelectasis. The cardiomediastinal silhouette is stable. There is no pneumothorax. Electronically signed by: Esteban Leonard M.D. Narrative 05/13/2024 12:47 PM MUSIC ASSISTANT EXAMINATION: 2 view chest radiograph Procedure Note Esteban Leonard MD - 05/13/2024 EXAMINATION: 2 view chest radiograph IMPRESSION: Comparison film is dated 03/31/2024. Changes of median sternotomy. 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 No broken or abandoned leads. Worsening bibasilar opacities, left greater than right are seen, which likely represent atelectasis. The cardiomediastinal silhouette is stable. There is no pneumothorax. Electronically signed by: Esteban Leonard M.D. Tashi Thurston MD IMG XR PROCEDURES Final Resu lt * eGFR (05/13/2024 4:41 AM MUSIC ASSISTANT) eGFR 68 >=60 mL/min/1. 73 m2 Comment: Interpretive Data Reference Interval Normal ?>/= 90 mL/min/1.73m2 Mildly decreased* ? 60 - 89 mL/min/1.73m2 Mildly to moderately decreased ?45 - 59 mL/min/1.73m2 Moderately to severely decreased ??30 - 44 mL/min/1.73m2 Severely decreased ?15 - 29 mL/min/1.73m2 Kidney Failure ?< 15 ??mL/min/1.73m2 *Relative to young adult level Estimated glomerular filtration rate is determined by the 2020 CKD-EPI equation recommended by the National Kidney Foundation (A Unifying Approach to GFR Estimation: Recommendations of the NKF-ASK Task Force on Reassessing the Inclusion of Race in Diagnosing Kidney Disease, JASN 2020). The CKD-EPI equation should not be used for patients with unstable renal function and has not been validated in children and those over 70. Current interpretive data was last reviewed 2021. Blood 05/13/2024 4:41 AM MUSIC ASSISTANT 05/13/2024 7:42 AM MUSIC ASSISTANT us Tashi Thurston MD LAB BLOOD ORDERABLES Final R esult [facility] [place] [address] * (ABNORMAL) Differential, auto (05/13/2024 4:41 AM MUSIC ASSISTANT) Neutrophil abs 7.1(H) 1.5 - 6.5 K/cumm Imm gran abs 0.1 0.0 - 0.1 K/cumm [facility] Lymphocyte abs 1.1 0.8 - 3.3 K/cumm [facility] Monocyte abs 0.6 0.2 - 0.8 K/cumm [facility] Eosinophil abs 0.2 0.0 - 0.5 K/cumm [facility] Basophil abs 0.0 0.0 - 0.1 K/cumm [facility] Neutrophil pct 78.4 % [facility] Comment: Interpretive Data Percent cell count reference ranges are not reported, since discordance with absolute values may lead to misinterpretation of CBC data. Current Interpretive Data was last revised on 2017. Imm gran pct 0.6 % [facility] Comment: Interpretive Data Percent cell count reference ranges are not reported, since discordance with absolute values may lead to misinterpretation of CBC data. Current Interpretive Data was last revised on 2017. Lymphocyte pct 12.4 % [facility] Comment: Interpretive Data Percent cell count reference ranges are not reported, since discordance with absolute values may lead to misinterpretation of CBC data. Current Interpretive Data was last revised on 2017. Monocyte pct 6.3 % [facility] Comment: Interpretive Data Percent cell count reference ranges are not reported, since discordance with absolute values may lead to misinterpretation of CBC data. Current Interpretive Data was last revised on 2017. Eosinophil pct 2.1 % [facility] Comment: Interpretive Data Percent cell count reference ranges are not reported, since discordance with absolute values may lead to misinterpretation of CBC data. Current Interpretive Data was last revised on 2017. Basophil pct 0.2 % [facility] Comment: Interpretive Data Percent cell count reference ranges are not reported, since discordance with absolute values may lead to misinterpretation of CBC data. Current Interpretive Data was last revised on 2017. Blood 05/13/2024 4:41 AM MUSIC ASSISTANT 05/13/2024 7:24 AM MUSIC ASSISTANT us Tashi Thurston MD LAB BLOOD ORDERABLES Final R esult [facility] Department [place] [address] * (ABNORMAL) CBC with auto differential (05/13/2024 4:41 AM MUSIC ASSISTANT) Pathologist [facility] WBC 9.1 3.8 - 9.9 K/cumm Hgb 9.7(L) 13.0 - 17.5 g/dL [facility] Hct 30.3(L) 38.9 - 50.3 % [facility] Plt 184 150 - 400 K/cumm [facility] MPV 11.6 9.1 - 12.3 fL [facility] RBC 3.53(L) 4.30 - 5.80 M/cumm [facility] MCV 85.8 81.3 - 96.4 fL [facility] MCH 27.5 27.1 - 33.3 pg [facility] MCHC 32.0(L) 32.3 - 35.7 g/dL [facility] RDW CV 15.8(H) 11.1 - 14.9 % [facility] RDW SD 49.6(H) 35.7 - 48.1 fL [facility] NRBC abs 0.00 0.00 - 0.01 K/cumm [facility] Blood 05/13/2024 4:41 AM MUSIC ASSISTANT 05/13/2024 7:24 AM MUSIC ASSISTANT us Tashi Thurston MD LAB BLOOD ORDERABLES Final R esult [facility] [place] [address] * (ABNORMAL) Blood culture Blood (05/13/2024 4:41 AM MUSIC ASSISTANT) Pathologist [facility] Direct Specimen Exam Stain: Gram Positive Cocci in clusters Time to culture positivity (aerobic media): 17.6 hours Time to culture positivity (anaerobic media): 22.5 hours Report Final Report: Staphylococcus aureus For susceptibility results, refer to accession number [id number] on the blood culture from 05/13/2024 (.) [facility] Organism STAPHYLOCOCCUS AUREUS [facility] Blood 05/13/2024 4:41 AM MUSIC ASSISTANT 05/13/2024 7:55 AM MUSIC ASSISTANT Narrative [facility] - 05/18/2024 10:29 AM MUSIC ASSISTANT From a different site than #1. Collection->Peripheral 1. ?Blood cultures are incubated for 4 days on a continuously monitored blood culture system. The first report of a negative culture is issued within 24 hours of receipt of the specimen in the laboratory. 2. ?Positive culture results are reported as soon as they are detected. 3. ?The most important factor for detection of microbes in the setting of bloodstream infection is the volume of blood submitted for culture. Failure to collect an optimal blood volume can result in false negative blood cultures. 4. ? For pediatric patients, the recommended blood volume to collect follows a weight based strategy. See the electronic test catalog for collection instructions. 5. ?For positive blood cultures, a rapid molecular test may be performed for organism identification using the jesus ePlex blood culture identification panel for gram positive (BCID-GP) and gram negative (BCID-GN) organisms. This nucleic acid amplification test detects microbial DNA in positive blood culture broth. This assay has been cleared by the [place] Food and Drug Administration and its performance characteristics have been verified by the [facility] Microbiology Laboratory. For questions about this culture, contact the Microbiology Laboratory at [phone]. Interpretive data was last revised on 24. us Tashi Thurston MD LAB MICROBIOLOGY - GENERAL O RDERABLES Final Result [facility] [place] [address] * (ABNORMAL) Blood culture Blood (05/13/2024 4:41 AM MUSIC ASSISTANT) Direct Specimen Exam Molecular Analysis: Methicillin-resist ant Staphylococcus aureus (MRSA) detected by the jesus ePlex BCID-GP panel. ??This test does not exclud the possibility of a mixed bacterial infection. Notification of: Methicillin-resist ant Staphylococcus aureus (MRSA) called to and read back by: Db Styles MD [phone] on 05/14/2024 03:30:11 by: Danya Hunter [place] Direct Specimen Exam Stain: Gram Positive Cocci in clusters Time to culture positivity (aerobic media): 16.2 hours Time to culture positivity (anaerobic media): 17.3 hours Notification of: Gram Positive Cocci in clusters called to and read back by: Db Styles MD [phone] on 05/14/2024 01:01:29 by: Danya Hunter MT [facility] Report Final Report: Staphylococcus aureus Methicillin resistant (MRSA) by penicillin binding protein 2a (PBP2a) testing. (.) [facility] Organism STAPHYLOCOCCUS AUREUS [facility] Blood 05/13/2024 4:41 AM MUSIC ASSISTANT 05/13/2024 7:55 AM MUSIC ASSISTANT Narrative [facility] - 05/18/2024 10:20 AM MUSIC ASSISTANT Collection->Peripheral 1. ?Blood cultures are incubated for 4 days on a continuously monitored blood culture system. The first report of a negative culture is issued within 24 hours of receipt of the specimen in the laboratory. 2. ?Positive culture results are reported as soon as they are detected. 3. ?The most important factor for detection of microbes in the setting of bloodstream infection is the volume of blood submitted for culture. Failure to collect an optimal blood volume can result in false negative blood cultures. 4. ? For pediatric patients, the recommended blood volume to collect follows a weight based strategy. See the electronic test catalog for collection instructions. 5. ?For positive blood cultures, a rapid molecular test may be performed for organism identification using the jesus ePlex blood culture identification panel for gram positive (BCID-GP) and gram negative (BCID-GN) organisms. This nucleic acid amplification test detects microbial DNA in positive blood culture broth. This assay has been cleared by the [place] Food and Drug Administration and its performance characteristics have been verified by the [facility] Microbiology Laboratory. For questions about this culture, contact the Microbiology Laboratory at [phone]. Interpretive data was last revised on 24. Organism Antibiotic Method Susceptibility Staphylococcus aureus Daptomycin ([place]) ([place]) INTERPRET ATION Susceptible Staphylococcus aureus Ceftaroline ([place]) INTERPRETATIO N Susceptible Staphylococcus aureus Doxycycline ([place]) INTERPRETATIO N Susceptible Staphylococcus aureus Linezolid ([place]) INTERPRETATIO N Susceptible Staphylococcus aureus Trimethoprim with Sulfamethoxazole ([place]) INTERPRETATION Susceptible Staphylococcus aureus Clindamycin ([place]) INTERPRETATIO N Resistant Staphylococcus aureus Erythromycin ([place]) INTERPRETATIO N Resistant Staphylococcus aureus Vancomycin ([place]) INTERPRETATIO N Susceptible Staphylococcus aureus Oxacillin ([place]) INTERPRETATIO N Resistant Staphylococcus aureus Cefazolin ([place]) INTERPRETATIO N Resistant Staphylococcus aureus Ceftriaxone ([place]) INTERPRETATIO N Resistant us Tashi Thurston MD LAB MICROBIOLOGY - GENERAL O RDERABLES Final Result Performing Organization Address City/[facility] Co de Phone Number [facility] [place] [address] * Type and screen (05/13/2024 4:41 AM MUSIC ASSISTANT) Pathologist [facility] Julien, indirect Negative ABO Rh B Positive [facility] Blood 05/13/2024 4:41 AM MUSIC ASSISTANT 05/13/2024 7:35 AM MUSIC ASSISTANT Narrative [facility] - 05/13/2024 9:23 AM MUSIC ASSISTANT Has the patient had Daratumumab or Isatuximab in the past 6 months?->Unknown us Tashi Thurston MD LAB BLOOD BANK TEST ORDERABL ES Final Result Performing Organization Address [facility] Co de Phone [place] [address] * Magnesium (05/13/2024 4:41 AM MUSIC ASSISTANT) [facility] Magnesium 2.1 1.4 - 2.5 mg/dL Blood 05/13/2024 4:41 AM MUSIC ASSISTANT 05/13/2024 7:24 AM MUSIC ASSISTANT us Tashi Thurston MD LAB BLOOD ORDERABLES Final R esult Performing Organization Address [facility] [place] [address] * Creatine kinase (CK), total (05/13/2024 4:41 AM MUSIC ASSISTANT) CK 59 40 - 300 Units/L Comment:Hemolyzed; result ma y be falsely elevated Blood 05/13/2024 4:41 AM MUSIC ASSISTANT 05/13/2024 7:24 AM MUSIC ASSISTANT us Tashi Thurston MD LAB BLOOD ORDERABLES Final R esult [facility] [place] [address] * (ABNORMAL) Comprehensive metabolic panel (05/13/2024 4:41 AM MUSIC ASSISTANT) Sodium 139 135 - 145 mmol/L Potassium, pl 3.8 3.3 - 4.9 mmol/L [facility] Chloride 103 97 - 110 mmol/L [facility] CO2 25 22 - 32 mmol/L [facility] Anion gap 11 2 - 15 mmol/L [facility] BUN 12 6 - 25 mg/dL [facility] Creatinine 1.08 0.80 - 1.30 mg/dL [facility] Glucose 79 70 - 199 mg/dL [facility] Comment: Interpretive Data Fasting glucose >/= 126 mg/dl is diagnostic for diabetes. ?? Fasting is defined as no caloric intake for at least 8 hours. Fasting glucose between 100 mg/dl to 125 mg/dl is diagnostic of prediabetes. In a patient with classic symptoms of hyperglycemia or hyperglycemic crisis, a random glucose >/= 200 mg/dl is diagnostic for diabetes. In the absence of unequivocal hyperglycemia, results should be confirmed by repeat testing. The classification and Diagnosis of Diabetes Diabetes Care 2021; 46: S19-S40. Current interpretive data was last revised 2022. Calcium 8.7 8.5 - 10.3 mg/dL [facility] Bilirubin, total 0.4 0.1 - 1.2 mg/dL [facility] Protein, pl 6.0(L) 6.5 - 8.5 g/dL [facility] Albumin 2.8(L) 3.5 - 5.0 g/dL [facility] Alk phos 61 40 - 130 Units/L [facility] ALT 21 7 - 55 Units/L [facility] AST 35 10 - 50 Units/L [facility] Blood 05/13/2024 4:41 AM MUSIC ASSISTANT 05/13/2024 7:24 AM MUSIC ASSISTANT Tashi Thurston MD LAB BLOOD ORDERABLES Final R esult Performing Organization Address City/[facility]/ZIP Co de Phone Number [facility] Department [place] [address] * ECG 12 lead (05/13/2024 3:49 AM MUSIC ASSISTANT) Ventricular Rate EKG/Min 62 BPM [facility] Atrial Rate 258 BPM [facility] QRS-Interval (MSEC) 200 ms [facility] QT-Interval (MSEC) 524 ms [facility] QTc 531 ms [facility] R [place] -69 degrees [facility] T [place] 87 degrees [facility] Diagnosis Ventricular-pa federico rhythm with frequent Premature ventricular complexes Abnormal ECG When compared with ECG of 31-MAR-2024 01:44, Premature ventricular complexes are now Present Confirmed by JOEY CAICEDO M.D ([id number]) on 05/15/2024 9:37:13 AM [facility] 05/13/2024 3:49 AM MUSIC ASSISTANT 05/15/2024 9:37 AM MUSIC ASSISTANT Tashi Thurston MD ECG ORDERABLES Final Result Performing Organization Address City/[facility]/ZIP Co de Phone Number [facility] * SCAN - RADIOLOGY/IMAGING (05/12/2024 11:04 AM MUSIC ASSISTANT) Anatomical Region Laterality Modality Other us Robert Whitlock MD Final Result * Cardiology Document Scan (05/08/2024 3:35 PM MUSIC ASSISTANT) Anatomical Region Laterality Modality Other us Robert Whitlock MD [facility] PROCEDURE S Final Result * SCAN - RADIOLOGY/IMAGING (05/08/2024 6:27 AM MUSIC ASSISTANT) Anatomical Region Laterality Modality Other us Robert Whitlock MD Final Result * SCAN - RADIOLOGY/IMAGING (05/06/2024 4:44 PM MUSIC ASSISTANT) Anatomical Region Laterality Modality Other Result Gabriel Whitlock MD Final Result * Cardiology Document Scan (05/05/2024 1:20 PM MUSIC ASSISTANT) Anatomical Region Laterality Modality Other Result Gabriel Whaley MD CV CARDIAC SERVICES PROCEDU RES Final Result * SCAN - RADIOLOGY/IMAGING (05/05/2024 11:06 AM MUSIC ASSISTANT) Anatomical Region Laterality Modality Other Result Gabriel Whitlock MD Final Result * SCAN - LABS (05/04/2024 6:06 PM MUSIC ASSISTANT) Result Gabriel Whitlock MD Final Result * SCAN - RADIOLOGY/IMAGING (05/04/2024 5:26 PM MUSIC ASSISTANT) Anatomical Region Laterality Modality Other Result Gabriel Whitlock MD Final Result * SCAN - LABS (05/04/2024 4:59 PM MUSIC ASSISTANT) Result Gabriel Whitlock MD Final Result * DEVICE CHECK - IN OFFICE (04/18/2024 11:07 AM MUSIC ASSISTANT) Anatomical Region Laterality Modality Other 04/18/2024 2:00 AM MUSIC ASSISTANT Narrative 04/19/2024 11:27 AM MUSIC ASSISTANT Interpretation Summary: Battery and Leads (BL) Normal parameters noted on battery and lead(s) Presenting Rhythm ([place]) Atrial Fibrillation or Flutter Ventricular Pacing (DISPATCH[employer]IEF OIL) Arrhythmic events (AE) Atrial fibrillation and/or flutter with controlled ventricular rate Anticoagulation ??(AC) Patient on anticoagulant therapy Patient prescribed Apixaban (Eliquis) Procedure Note Lydia Aparicio MD - 04/19/2024 Interpretation Summary: Battery and Leads (BL) Normal parameters noted on battery and lead(s) Presenting Rhythm ([place]) Atrial Fibrillation or Flutter Ventricular Pacing (DISPATCHER CHIEF OIL) Arrhythmic events (AE) Atrial fibrillation and/or flutter with controlled ventricular rate Anticoagulation (AC) Patient on anticoagulant therapy Patient prescribed Apixaban (Eliquis) us Kelsie Guillen NP [facility] CARD[facility] [place] OCEDURES Final Result * eGFR (04/05/2024 2:33 AM MUSIC ASSISTANT) eGFR 70 >=60 mL/min/1. 73 m2 Comment: Interpretive Data Reference Interval Normal ?>/= 90 mL/min/1.73m2 Mildly decreased* ? 60 - 89 mL/min/1.73m2 Mildly to moderately decreased ?45 - 59 mL/min/1.73m2 Moderately to severely decreased ??30 - 44 mL/min/1.73m2 Severely decreased ?15 - 29 mL/min/1.73m2 Kidney Failure ?< 15 ??mL/min/1.73m2 *Relative to young adult level Estimated glomerular filtration rate is determined by the 2020 CKD-EPI equation recommended by the National Kidney Foundation (A Unifying Approach to GFR Estimation: Recommendations of the NKF-ASK Task Force on Reassessing the Inclusion of Race in Diagnosing Kidney Disease, JASN 2020). The CKD-EPI equation should not be used for patients with unstable renal function and has not been validated in children and those over 70. Current interpretive data was last reviewed 2021. Blood 04/05/2024 2:33 AM MUSIC ASSISTANT 04/05/2024 3:04 AM MUSIC ASSISTANT us Shane Alfredo MD LAB BLOOD ORDERABLES Fi nal Result [facility] Department [place] [address] * Differential, auto (04/05/2024 2:33 AM MUSIC ASSISTANT) Neutrophil abs 5.7 1.5 - 6.5 K/cumm Imm gran abs 0.0 0.0 - 0.1 K/cumm [facility] Lymphocyte abs 1.4 0.8 - 3.3 K/cumm [facility] Monocyte abs 0.8 0.2 - 0.8 K/cumm [facility] Eosinophil abs 0.5 0.0 - 0.5 K/cumm [facility] Basophil abs 0.0 0.0 - 0.1 K/cumm [facility] Neutrophil pct 66.9 % [facility] Comment: Interpretive Data Percent cell count reference ranges are not reported, since discordance with absolute values may lead to misinterpretation of CBC data. Current Interpretive Data was last revised on 2017. Imm gran pct 0.4 % [facility] Comment: Interpretive Data Percent cell count reference ranges are not reported, since discordance with absolute values may lead to misinterpretation of CBC data. Current Interpretive Data was last revised on 2017. Lymphocyte pct 17.0 % [facility] Comment: Interpretive Data Percent cell count reference ranges are not reported, since discordance with absolute values may lead to misinterpretation of CBC data. Current Interpretive Data was last revised on 2017. Monocyte pct 9.1 % [facility] Comment: Interpretive Data Percent cell count reference ranges are not reported, since discordance with absolute values may lead to misinterpretation of CBC data. Current Interpretive Data was last revised on 2017. Eosinophil pct 6.2 % [facility] Comment: Interpretive Data Percent cell count reference ranges are not reported, since discordance with absolute values may lead to misinterpretation of CBC data. Current Interpretive Data was last revised on 2017. Basophil pct 0.4 % [facility] Comment: Interpretive Data Percent cell count reference ranges are not reported, since discordance with absolute values may lead to misinterpretation of CBC data. Current Interpretive Data was last revised on 2017. Blood 04/05/2024 2:33 AM MUSIC ASSISTANT 04/05/2024 3:08 AM MUSIC ASSISTANT us Shane Alfredo MD LAB BLOOD ORDERABLES Fi nal Result [facility] Department [place] [address] * (ABNORMAL) CBC with auto differential (04/05/2024 2:33 AM MUSIC ASSISTANT) WBC 8.6 3.8 - 9.9 K/cumm Hgb 8.7(L) 13.0 - 17.5 g/dL [facility] Hct 27.1(L) 38.9 - 50.3 % [facility] Plt 250 150 - 400 K/cumm [facility] MPV 10.1 9.1 - 12.3 fL [facility] RBC 3.03(L) 4.30 - 5.80 M/cumm [facility] MCV 89.4 81.3 - 96.4 fL [facility] MCH 28.7 27.1 - 33.3 pg [facility] MCHC 32.1(L) 32.3 - 35.7 g/dL [facility] RDW CV 13.8 11.1 - 14.9 % [facility] RDW SD 45.1 35.7 - 48.1 fL [facility] NRBC abs 0.00 0.00 - 0.01 K/cumm [facility] Blood 04/05/2024 2:33 AM MUSIC ASSISTANT 04/05/2024 3:08 AM MUSIC ASSISTANT us Shane Alfredo MD LAB BLOOD ORDERABLES Fi nal Result [facility] Department [place] [address] * (ABNORMAL) CBC without differential (04/05/2024 2:33 AM MUSIC ASSISTANT) WBC 8.6 3.8 - 9.9 K/cumm Hgb 8.7(L) 13.0 - 17.5 g/dL [facility] Hct 27.1(L) 38.9 - 50.3 % [facility] Plt 250 150 - 400 K/cumm [facility] MPV 10.1 9.1 - 12.3 fL [facility] RBC 3.03(L) 4.30 - 5.80 M/cumm [facility] MCV 89.4 81.3 - 96.4 fL [facility] MCH 28.7 27.1 - 33.3 pg [facility] MCHC 32.1(L) 32.3 - 35.7 g/dL [facility] RDW CV 13.8 11.1 - 14.9 % [facility] RDW SD 45.1 35.7 - 48.1 fL [facility] NRBC abs 0.00 0.00 - 0.01 K/cumm [facility] Blood 04/05/2024 2:33 AM MUSIC ASSISTANT 04/05/2024 3:04 AM MUSIC ASSISTANT Apolonia Briseno NP LAB BLOOD ORDERABLES Final Result Performing Organization Address City/[facility]/ZIP Co de Phone Number [facility] [place] [address] * (ABNORMAL) Creatine kinase (CK), total (04/05/2024 2:33 AM MUSIC ASSISTANT) Pathologist [facility] CK 29(L) 40 - 300 Units/L Blood 04/05/2024 2:33 AM MUSIC ASSISTANT 04/05/2024 3:04 AM MUSIC ASSISTANT Apolonia Briseno DEMO COORDINATOR LAB BLOOD ORDERABLES Final Result [facility] [place] [address] * (ABNORMAL) Hepatic function panel (04/05/2024 2:33 AM MUSIC ASSISTANT) Bilirubin, total 0.4 0.1 - 1.2 mg/dL Bilirubin, direct <0.2 0.1 - 0.3 mg/dL [facility] Protein, pl 6.4(L) 6.5 - 8.5 g/dL [facility] Albumin 2.8(L) 3.5 - 5.0 g/dL [facility] Alk phos 64 40 - 130 Units/L [facility] ALT 27 7 - 55 Units/L [facility] AST 25 10 - 50 Units/L [facility] Blood 04/05/2024 2:33 AM MUSIC ASSISTANT 04/05/2024 3:04 AM MUSIC ASSISTANT us Apolonia Briseno DEMO COORDINATOR LAB BLOOD ORDERABLES Final Result [facility] Department [place] [address] * Basic metabolic panel (04/05/2024 2:33 AM MUSIC ASSISTANT) Sodium 142 135 - 145 mmol/L Potassium, pl 4.6 3.3 - 4.9 mmol/L [facility] Chloride 106 97 - 110 mmol/L [facility] CO2 25 22 - 32 mmol/L [facility] Anion gap 11 2 - 15 mmol/L [facility] BUN 20 6 - 25 mg/dL [facility] Creatinine 1.05 0.80 - 1.30 mg/dL [facility] Glucose 111 70 - 199 mg/dL [facility] Comment: Interpretive Data Fasting glucose >/= 126 mg/dl is diagnostic for diabetes. ?? Fasting is defined as no caloric intake for at least 8 hours. Fasting glucose between 100 mg/dl to 125 mg/dl is diagnostic of prediabetes. In a patient with classic symptoms of hyperglycemia or hyperglycemic crisis, a random glucose >/= 200 mg/dl is diagnostic for diabetes. In the absence of unequivocal hyperglycemia, results should be confirmed by repeat testing. The classification and Diagnosis of Diabetes Diabetes Care 202; 46: S19-S40. Current interpretive data was last revised 2022. Calcium 8.8 8.5 - 10.3 mg/dL [facility] Blood 04/05/2024 2:33 AM MUSIC ASSISTANT 04/05/2024 3:04 AM MUSIC ASSISTANT us Shane Alfredo MD LAB BLOOD ORDERABLES Fi nal Result Performing Organization Address [facility] Co de Phone Number [facility] [place] [address] * eGFR (04/04/2024 4:18 AM MUSIC ASSISTANT) eGFR 66 >=60 mL/min/1. 73 m2 Comment: Interpretive Data Reference Interval Normal ?>/= 90 mL/min/1.73m2 Mildly decreased* ? 60 - 89 mL/min/1.73m2 Mildly to moderately decreased ?45 - 59 mL/min/1.73m2 Moderately to severely decreased ??30 - 44 mL/min/1.73m2 Severely decreased ?15 - 29 mL/min/1.73m2 Kidney Failure ?< 15 ??mL/min/1.73m2 *Relative to young adult level Estimated glomerular filtration rate is determined by the 2020 CKD-EPI equation recommended by the National Kidney Foundation (A Unifying Approach to GFR Estimation: Recommendations of the NKF-ASK Task Force on Reassessing the Inclusion of Race in Diagnosing Kidney Disease, JASN 2020). The CKD-EPI equation should not be used for patients with unstable renal function and has not been validated in children and those over 70. Current interpretive data was last reviewed 2021. Blood 04/04/2024 4:18 AM MUSIC ASSISTANT 04/04/2024 5:05 AM MUSIC ASSISTANT us Shane Alfredo MD LAB BLOOD ORDERABLES Fi nal Result Performing Organization Address [facility] Co de Phone Number [facility] [place] [address] * Basic metabolic panel (04/04/2024 4:18 AM MUSIC ASSISTANT) Pathologist [facility] Sodium 137 135 - 145 mmol/L Potassium, pl 4.5 3.3 - 4.9 mmol/L [facility] Chloride 103 97 - 110 mmol/L [facility] CO2 27 22 - 32 mmol/L [facility] Anion gap 7 2 - 15 mmol/L [facility] BUN 22 6 - 25 mg/dL [facility] Creatinine 1.10 0.80 - 1.30 mg/dL [facility] Glucose 104 70 - 199 mg/dL [facility] Comment: Interpretive Data Fasting glucose >/= 126 mg/dl is diagnostic for diabetes. ?? Fasting is defined as no caloric intake for at least 8 hours. Fasting glucose between 100 mg/dl to 125 mg/dl is diagnostic of prediabetes. In a patient with classic symptoms of hyperglycemia or hyperglycemic crisis, a random glucose >/= 200 mg/dl is diagnostic for diabetes. In the absence of unequivocal hyperglycemia, results should be confirmed by repeat testing. The classification and Diagnosis of Diabetes Diabetes Care 202; 46: S19-S40. Current interpretive data was last revised 2022. Calcium 8.9 8.5 - 10.3 mg/dL [facility] Blood 04/04/2024 4:18 AM MUSIC ASSISTANT 04/04/2024 5:05 AM MUSIC ASSISTANT us Shane Alfredo MD LAB BLOOD ORDERABLES Fi nal Result [facility] Department [place] [address] * eGFR (04/03/2024 6:01 AM MUSIC ASSISTANT) [facility] eGFR 68 >=60 mL/min/1. 73 m2 Comment: Interpretive Data Reference Interval Normal ?>/= 90 mL/min/1.73m2 Mildly decreased* ? 60 - 89 mL/min/1.73m2 Mildly to moderately decreased ?45 - 59 mL/min/1.73m2 Moderately to severely decreased ??30 - 44 mL/min/1.73m2 Severely decreased ?15 - 29 mL/min/1.73m2 Kidney Failure ?< 15 ??mL/min/1.73m2 *Relative to young adult level Estimated glomerular filtration rate is determined by the 2020 CKD-EPI equation recommended by the National Kidney Foundation (A Unifying Approach to GFR Estimation: Recommendations of the NKF-ASK Task Force on Reassessing the Inclusion of Race in Diagnosing Kidney Disease, JASN 2020). The CKD-EPI equation should not be used for patients with unstable renal function and has not been validated in children and those over 70. Current interpretive data was last reviewed 2021. Blood 04/03/2024 6:01 AM MUSIC ASSISTANT 04/03/2024 6:26 AM MUSIC ASSISTANT us Shane Alfredo MD LAB BLOOD ORDERABLES Fi nal Result [facility] [place] [address] * (ABNORMAL) CBC without differential (04/03/2024 6:01 AM MUSIC ASSISTANT) WBC 8.5 3.8 - 9.9 K/cumm Hgb 8.8(L) 13.0 - 17.5 g/dL [facility] Hct 27.0(L) 38.9 - 50.3 % [facility] Plt 205 150 - 400 K/cumm [facility] MPV 10.0 9.1 - 12.3 fL [facility] RBC 3.05(L) 4.30 - 5.80 M/cumm [facility] MCV 88.5 81.3 - 96.4 fL [facility] MCH 28.9 27.1 - 33.3 pg [facility] MCHC 32.6 32.3 - 35.7 g/dL [facility] RDW CV 13.7 11.1 - 14.9 % [facility] RDW SD 44.4 35.7 - 48.1 fL [facility] NRBC abs 0.00 0.00 - 0.01 K/cumm [facility] Blood 04/03/2024 6:01 AM MUSIC ASSISTANT 04/03/2024 6:26 AM MUSIC ASSISTANT Apolonia Briseno DEMO COORDINATOR LAB BLOOD ORDERABLES Final Result [facility] [place] [address] * Basic metabolic panel (04/03/2024 6:01 AM MUSIC ASSISTANT) Sodium 138 135 - 145 mmol/L Potassium, pl 4.5 3.3 - 4.9 mmol/L [facility] Chloride 103 97 - 110 mmol/L [facility] CO2 26 22 - 32 mmol/L [facility] Anion gap 9 2 - 15 mmol/L [facility] BUN 22 6 - 25 mg/dL [facility] Creatinine 1.08 0.80 - 1.30 mg/dL [facility] Glucose 102 70 - 199 mg/dL [facility] Comment: Interpretive Data Fasting glucose >/= 126 mg/dl is diagnostic for diabetes. ?? Fasting is defined as no caloric intake for at least 8 hours. Fasting glucose between 100 mg/dl to 125 mg/dl is diagnostic of prediabetes. In a patient with classic symptoms of hyperglycemia or hyperglycemic crisis, a random glucose >/= 200 mg/dl is diagnostic for diabetes. In the absence of unequivocal hyperglycemia, results should be confirmed by repeat testing. The classification and Diagnosis of Diabetes Diabetes Care 202; 46: S19-S40. Current interpretive data was last revised 2022. Calcium 8.7 8.5 - 10.3 mg/dL [facility] Blood 04/03/2024 6:01 AM MUSIC ASSISTANT 04/03/2024 6:26 AM MUSIC ASSISTANT us Shane Alfredo MD LAB BLOOD ORDERABLES Fi nal Result Performing Organization Address [facility]/ZIP Co de Phone Number [facility] [place] [address] * (ABNORMAL) eGFR (04/02/2024 3:56 AM MUSIC ASSISTANT) eGFR 58(L) >=60 mL/min/1. 73 m2 Comment: Interpretive Data Reference Interval Normal ?>/= 90 mL/min/1.73m2 Mildly decreased* ? 60 - 89 mL/min/1.73m2 Mildly to moderately decreased ?45 - 59 mL/min/1.73m2 Moderately to severely decreased ??30 - 44 mL/min/1.73m2 Severely decreased ?15 - 29 mL/min/1.73m2 Kidney Failure ?< 15 ??mL/min/1.73m2 *Relative to young adult level Estimated glomerular filtration rate is determined by the 2020 CKD-EPI equation recommended by the National Kidney Foundation (A Unifying Approach to GFR Estimation: Recommendations of the NKF-ASK Task Force on Reassessing the Inclusion of Race in Diagnosing Kidney Disease, JASN 2020). The CKD-EPI equation should not be used for patients with unstable renal function and has not been validated in children and those over 70. Current interpretive data was last reviewed 2021. Blood 04/02/2024 3:56 AM MUSIC ASSISTANT 04/02/2024 4:42 AM MUSIC ASSISTANT us Shane Alfredo MD LAB BLOOD ORDERABLES Fi nal Result Performing Organization Address [facility]/ZIP Co de Phone Number [facility] [facility] [place] [address] * Basic metabolic panel (04/02/2024 3:56 AM MUSIC ASSISTANT) Pathologist [facility] Sodium 137 135 - 145 mmol/L Potassium, pl 4.6 3.3 - 4.9 mmol/L [facility] Chloride 104 97 - 110 mmol/L [facility] CO2 26 22 - 32 mmol/L [facility] Anion gap 7 2 - 15 mmol/L [facility] BUN 22 6 - 25 mg/dL [facility] Creatinine 1.23 0.80 - 1.30 mg/dL [facility] Glucose 105 70 - 199 mg/dL [facility] Comment: Interpretive Data Fasting glucose >/= 126 mg/dl is diagnostic for diabetes. ?? Fasting is defined as no caloric intake for at least 8 hours. Fasting glucose between 100 mg/dl to 125 mg/dl is diagnostic of prediabetes. In a patient with classic symptoms of hyperglycemia or hyperglycemic crisis, a random glucose >/= 200 mg/dl is diagnostic for diabetes. In the absence of unequivocal hyperglycemia, results should be confirmed by repeat testing. The classification and Diagnosis of Diabetes Diabetes Care 202; 46: S19-S40. Current interpretive data was last revised 2022. Calcium 9.0 8.5 - 10.3 mg/dL [facility] Blood 04/02/2024 3:56 AM MUSIC ASSISTANT 04/02/2024 4:42 AM MUSIC ASSISTANT us Shane Alfredo MD LAB BLOOD ORDERABLES Fi nal Result [facility] [place] [address] * eGFR (04/01/2024 3:30 AM MUSIC ASSISTANT) Pathologist [facility] eGFR 60 >=60 mL/min/1. 73 m2 Comment: Interpretive Data Reference Interval Normal ?>/= 90 mL/min/1.73m2 Mildly decreased* ? 60 - 89 mL/min/1.73m2 Mildly to moderately decreased ?45 - 59 mL/min/1.73m2 Moderately to severely decreased ??30 - 44 mL/min/1.73m2 Severely decreased ?15 - 29 mL/min/1.73m2 Kidney Failure ?< 15 ??mL/min/1.73m2 *Relative to young adult level Estimated glomerular filtration rate is determined by the 2020 CKD-EPI equation recommended by the National Kidney Foundation (A Unifying Approach to GFR Estimation: Recommendations of the NKF-ASK Task Force on Reassessing the Inclusion of Race in Diagnosing Kidney Disease, JASN 2020). The CKD-EPI equation should not be used for patients with unstable renal function and has not been validated in children and those over 70. Current interpretive data was last reviewed 2021. Blood 04/01/2024 3:30 AM MUSIC ASSISTANT 04/01/2024 3:51 AM MUSIC ASSISTANT us Shane Alfredo MD LAB BLOOD ORDERABLES Fi nal Result [facility] [place] [address] * Basic metabolic panel (04/01/2024 3:30 AM MUSIC ASSISTANT) Sodium 136 135 - 145 mmol/L Potassium, pl 4.7 3.3 - 4.9 mmol/L [facility] Chloride 104 97 - 110 mmol/L [facility] CO2 25 22 - 32 mmol/L [facility] Anion gap 7 2 - 15 mmol/L [facility] BUN 22 6 - 25 mg/dL [facility] Creatinine 1.19 0.80 - 1.30 mg/dL [facility] Glucose 123 70 - 199 mg/dL [facility] Comment: Interpretive Data Fasting glucose >/= 126 mg/dl is diagnostic for diabetes. ?? Fasting is defined as no caloric intake for at least 8 hours. Fasting glucose between 100 mg/dl to 125 mg/dl is diagnostic of prediabetes. In a patient with classic symptoms of hyperglycemia or hyperglycemic crisis, a random glucose >/= 200 mg/dl is diagnostic for diabetes. In the absence of unequivocal hyperglycemia, results should be confirmed by repeat testing. The classification and Diagnosis of Diabetes Diabetes Care 202; 46: S19-S40. Current interpretive data was last revised 2022. Calcium 8.6 8.5 - 10.3 mg/dL [facility] Blood 04/01/2024 3:30 AM MUSIC ASSISTANT 04/01/2024 3:51 AM MUSIC ASSISTANT us Shane Alfredo MD LAB BLOOD ORDERABLES Fi nal Result [facility] [place] [address] * X-ray chest 2 views (03/31/2024 3:37 PM MUSIC ASSISTANT) Anatomical Region Laterality Modality Body, Chest N/A Computed Radiogr aphy 03/31/2024 3:47 PM MUSIC ASSISTANT Impressions 03/31/2024 3:47 PM MUSIC ASSISTANT Comparison is made to prior chest radiograph dated 03/30/2024. Tip of a right internal jugular central venous catheter terminates in the superior cavoatrial junction. ??There is a left subclavian approach pacemaker with leads projecting over the right atrium and right ventricle. ??Median sternotomy wires are unchanged from prior study. Bibasilar airspace consolidations are slightly increased and favored to represent atelectasis. ??There is no pleural effusion. ??No pneumothorax. Stable heart size. Electronically signed by: Isabel Black M.D. Narrative 03/31/2024 3:47 PM MUSIC ASSISTANT EXAMINATION: 2 view chest radiograph Procedure Note Isabel Cisneros MD - 03/31/2024 EXAMINATION: 2 view chest radiograph IMPRESSION: Comparison is made to prior chest radiograph dated 03/30/2024. Tip of a right internal jugular central venous catheter terminates in the superior cavoatrial junction. There is a left subclavian approach pacemaker with leads projecting over the right atrium and right ventricle. Median sternotomy wires are unchanged from prior study. Bibasilar airspace consolidations are slightly increased and favored to represent atelectasis. There is no pleural effusion. No pneumothorax. Stable heart size. Electronically signed by: Isabel Black M.D. us Shane Alfredo MD IMG XR PROCEDURES Final Result * (ABNORMAL) CBC without differential (03/31/2024 9:09 AM MUSIC ASSISTANT) [facility] WBC 8.6 3.8 - 9.9 K/cumm Hgb 9.8(L) 13.0 - 17.5 g/dL [facility] Hct 31.2(L) 38.9 - 50.3 % [facility] Plt 222 150 - 400 K/cumm [facility] MPV 10.1 9.1 - 12.3 fL [facility] RBC 3.44(L) 4.30 - 5.80 M/cumm [facility] MCV 90.7 81.3 - 96.4 fL [facility] MCH 28.5 27.1 - 33.3 pg [facility] MCHC 31.4(L) 32.3 - 35.7 g/dL [facility] RDW CV 13.8 11.1 - 14.9 % [facility] RDW SD 46.0 35.7 - 48.1 fL [facility] NRBC abs 0.00 0.00 - 0.01 K/cumm [facility] Blood 03/31/2024 9:09 AM MUSIC ASSISTANT 03/31/2024 9:41 AM MUSIC ASSISTANT Doris Epstein DEMO COORDINATOR LAB BLOOD ORDERABLES Final Result [facility] [place] [address] * eGFR (03/31/2024 4:41 AM MUSIC ASSISTANT) [facility] eGFR 63 >=60 mL/min/1. 73 m2 Comment: Interpretive Data Reference Interval Normal ?>/= 90 mL/min/1.73m2 Mildly decreased* ? 60 - 89 mL/min/1.73m2 Mildly to moderately decreased ?45 - 59 mL/min/1.73m2 Moderately to severely decreased ??30 - 44 mL/min/1.73m2 Severely decreased ?15 - 29 mL/min/1.73m2 Kidney Failure ?< 15 ??mL/min/1.73m2 *Relative to young adult level Estimated glomerular filtration rate is determined by the 2020 CKD-EPI equation recommended by the National Kidney Foundation (A Unifying Approach to GFR Estimation: Recommendations of the NKF-ASK Task Force on Reassessing the Inclusion of Race in Diagnosing Kidney Disease, JASN 2020). The CKD-EPI equation should not be used for patients with unstable renal function and has not been validated in children and those over 70. Current interpretive data was last reviewed 2021. Blood 03/31/2024 4:41 AM MUSIC ASSISTANT 03/31/2024 5:27 AM MUSIC ASSISTANT us Shane Alfredo MD LAB BLOOD ORDERABLES Fi nal Result Performing Organization Address City/State/[facility] Co de Phone Number [facility] [place] [address] * (ABNORMAL) CBC without differential (03/31/2024 4:41 AM MUSIC ASSISTANT) Pathologist [facility] WBC 7.8 3.8 - 9.9 K/cumm Hgb 9.1(L) 13.0 - 17.5 g/dL [facility] Hct 28.1(L) 38.9 - 50.3 % [facility] Plt 201 150 - 400 K/cumm [facility] MPV 10.1 9.1 - 12.3 fL [facility] RBC 3.17(L) 4.30 - 5.80 M/cumm [facility] MCV 88.6 81.3 - 96.4 fL [facility] MCH 28.7 27.1 - 33.3 pg [facility] MCHC 32.4 32.3 - 35.7 g/dL [facility] RDW CV 13.7 11.1 - 14.9 % [facility] RDW SD 44.8 35.7 - 48.1 fL [facility] NRBC abs 0.00 0.00 - 0.01 K/cumm [facility] Blood 03/31/2024 4:41 AM MUSIC ASSISTANT 03/31/2024 5:29 AM MUSIC ASSISTANT Apolonia Briseno DEMO COORDINATOR LAB BLOOD ORDERABLES Final Result [facility] [place] [address] * Basic metabolic panel (03/31/2024 4:41 AM MUSIC ASSISTANT) Pathologist [facility] Sodium 137 135 - 145 mmol/L Potassium, pl 4.5 3.3 - 4.9 mmol/L [facility] Chloride 104 97 - 110 mmol/L [facility] CO2 27 22 - 32 mmol/L [facility] Anion gap 6 2 - 15 mmol/L [facility] BUN 17 6 - 25 mg/dL [facility] Creatinine 1.14 0.80 - 1.30 mg/dL [facility] Glucose 119 70 - 199 mg/dL [facility] Comment: Interpretive Data Fasting glucose >/= 126 mg/dl is diagnostic for diabetes. ?? Fasting is defined as no caloric intake for at least 8 hours. Fasting glucose between 100 mg/dl to 125 mg/dl is diagnostic of prediabetes. In a patient with classic symptoms of hyperglycemia or hyperglycemic crisis, a random glucose >/= 200 mg/dl is diagnostic for diabetes. In the absence of unequivocal hyperglycemia, results should be confirmed by repeat testing. The classification and Diagnosis of Diabetes Diabetes Care 2021; 46: S19-S40. Current interpretive data was last revised 2022. Calcium 8.8 8.5 - 10.3 mg/dL [facility] Blood 03/31/2024 4:41 AM MUSIC ASSISTANT 03/31/2024 5:27 AM MUSIC ASSISTANT Shane Alfredo MD LAB BLOOD ORDERABLES Fi nal Result Performing Organization Address [facility] Co de Phone Number [facility] [place] [address] * ECG 12 lead (03/31/2024 1:44 AM MUSIC ASSISTANT) Pathologist [facility] Ventricular Rate EKG/Min 61 BPM [facility] Atrial Rate 277 BPM [facility] QRS-Interval (MSEC) 126 ms [facility] QT-Interval (MSEC) 440 ms [facility] QTc 442 ms [facility] R [place] -54 degrees [facility] T [place] 62 degrees [facility] Diagnosis Electronic ventricular pacemaker Left axis deviation Left bundle branch block Abnormal ECG When compared with ECG of 16-FEB-2022 10:33, Left bundle branch block is now Present Criteria for Anterior infarct are no longer Present Confirmed by LAMAR SOTO M.D ([id number]) on 04/04/2024 4:04:08 PM [facility] 03/31/2024 1:44 AM MUSIC ASSISTANT 04/04/2024 4:04 PM MUSIC ASSISTANT us Shane Alfredo MD ECG ORDERABLES Final R esult Performing Organization Address City/[facility] Co de Phone Number [facility] * IR Central Line Placement > 5 Years (03/30/2024 3:58 PM MUSIC ASSISTANT) Anatomical Region Laterality Modality Body N/A X-Ray Angiograph y 03/30/2024 4:25 PM MUSIC ASSISTANT Impressions 03/30/2024 4:25 PM MUSIC ASSISTANT Successful nontunneled catheter placement (5-Icelandic dual lumen). PLAN: The catheter is ready for immediate use. ??When treatment is completed, this catheter can be removed at the bedside according to standard hospital protocol. ?? 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 ?? SEDATION: Local anesthetic only TECHNIQUE: ?? The risks, benefits and alternatives were discussed and informed consent was obtained. ??Prior to beginning the procedure, [place] Protocol was used to confirm the patient's identity and planned procedure. ??Fluoroscopy time has been recorded in the electronic medical record. Maximum sterile barriers including cap, mask, hand hygiene, sterile gloves, sterile gown, large sterile drape and 2% chlorhexidine for cutaneous antisepsis were used. ??The skin over the right neck was sterilely prepped, draped and infiltrated with 1% buffered lidocaine. Prior to the procedure, the target vessel was evaluated by ultrasound, an image of the patent right internal jugular vein recorded, and this image placed in the patient's chart. ??After sterile prep, this vessel was accessed using realtime ultrasound guidance. A guidewire and catheter were then passed centrally using fluoroscopic guidance. ?? The intravascular length from the access site to the right atrium was assessed. After dilating the tract, a 5-Icelandic dual lumen titi trimmed to the appropriate intravascular length (14 cm) was inserted over the guidewire. The catheter was flushed with 100U/ml heparin and secured in place. A sterile dressing was applied. ?? ESTIMATED BLOOD LOSS: Minimal. CONDITION: Stable DISCHARGED TO: patient care division. FINDINGS: The final fluoroscopic image demonstrates the catheter with its tip at the cavoatrial junction. ??No complications are seen. 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 SEDATION: Local anesthetic only TECHNIQUE: The risks, benefits and alternatives were discussed and informed consent was obtained. Prior to beginning the procedure, [place] Protocol was used to confirm the patient's identity and planned procedure. Fluoroscopy time has been recorded in the electronic medical record. Maximum sterile barriers including cap, mask, hand hygiene, sterile gloves, sterile gown, large sterile drape and 2% chlorhexidine for cutaneous antisepsis were used. The skin over the right neck was sterilely prepped, draped and infiltrated with 1% buffered lidocaine. Prior to the procedure, the target vessel was evaluated by ultrasound, an image of the patent right internal jugular vein recorded, and this image placed in the patient's chart. After sterile prep, this vessel was accessed using realtime ultrasound guidance. A guidewire and catheter were then passed centrally using fluoroscopic guidance. The intravascular length from the access site to the right atrium was assessed. After dilating the tract, a 5-Icelandic dual lumen titi trimmed to the appropriate intravascular length (14 cm) was inserted over the guidewire. The catheter was flushed with 100U/ml heparin and secured in place. A sterile dressing was applied. ESTIMATED BLOOD LOSS: Minimal. CONDITION: Stable DISCHARGED TO: patient care division. FINDINGS: The final fluoroscopic image demonstrates the catheter with its tip at the cavoatrial junction. No complications are seen. IMPRESSION: Successful nontunneled catheter placement (5-Icelandic dual lumen). PLAN: The catheter is ready for immediate use. When treatment is completed, this catheter can be removed at the bedside according to standard hospital protocol. Electronically signed by: Shyanne Craig MD Armando Dodson DEMO COORDINATOR IMG IR PROCEDURES Final Re sult * X-ray chest 1 view (Portable) (03/30/2024 11:43 AM MUSIC ASSISTANT) Anatomical Region Laterality Modality Body, Chest N/A Computed Radiogr aphy 03/30/2024 11:4 5 AM MUSIC ASSISTANT Impressions 03/30/2024 11:45 AM MUSIC ASSISTANT Comparison is made to prior from 03/21/2024. ??A left subclavian approach 2-lead pacemaker has been placed with a lead overlying the right atrium. ??The right ventricular lead is not fully included in the [id number]. The heart and mediastinum are unchanged. ??There is an airspace opacity in the right lung base, likely atelectasis. ??Mild left basilar atelectasis. ??No pleural effusion or pneumothorax. Electronically signed by: Zaheer Downing M.D. Narrative 03/30/2024 11:45 AM MUSIC ASSISTANT EXAMINATION: 1 view chest radiograph Procedure Note Zaheer Downing MD - 03/30/2024 EXAMINATION: 1 view chest radiograph IMPRESSION: Comparison is made to prior from 03/21/2024. A left subclavian approach 2-lead pacemaker has been placed with a lead overlying the right atrium. The right ventricular lead is not fully included in the [id number]. The heart and mediastinum are unchanged. There is an airspace opacity in the right lung base, likely atelectasis. Mild left basilar atelectasis. No pleural effusion or pneumothorax. Electronically signed by: Zaheer Downing M.D. us Shane Alfredo MD IMG XR PROCEDURES Final Result * IMPLANT DUAL CHAMBER PPM SYSTEM W/ DUAL ELECTRODES (GEN AND LEADS, NEW OR REPLACE), REMOVE/EXTRACT ONE PACEMAKER LEAD (03/30/2024 10:57 AM MUSIC ASSISTANT) Anatomical Region Laterality Modality X-Ray Angiograph y Narrative 03/30/2024 11:05 AM MUSIC ASSISTANT [facility] [employer] [facility] ? Cardiac Electrophysiology Laboratory [facility] Electrophysiology Procedure Report Dual Chamber Pacemaker Implant Patient Name: Kelsie Vo Date of : 1940 ?? Procedure Date: 03/30/2024 Procedure Duration: 130 min Fluoroscopy Dose: 152 mGy Name of procedure: Implantation of a Dual Chamber PPM Extraction of an externalized single chamber PPM lead History: 83M recently presented to [facility] with fevers and altered mental status. 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 The patient was instructed to come to [facility]. [facility] PPM implanted 02/16/2022. 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 -JOSEPH negative for valvular involvement. 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 He previously had sinus bradycardia underlying with minimal AF burden. Methods: After informed consent was obtained, the patient was brought to the EP laboratory in a fasting, nonsedated state. ??Peripheral IV access was established. ??Prophylactic antibiotics were administered prior to incision. ??Continuous ECG, blood pressure, and pulse oximetry monitoring were initiated. ??Cardioversion patch electrodes were placed on the patient's chest and back. ??A grounding patch was applied to the skin. ?? Sedation was administered per ??Anesthesia Services. The chest was prepared and draped in a sterile fashion. ??Local anesthesia was injected in the subcutaneous tissue in the infraclavicular area. ??An incision was made overlying the deltopectoral groove, and the cephalic vein was isolated with proximal and distal silk ties. The vein was too small more use howevere. Under fluoroscopic guidance, the axillary vein was punctured with a micropuncture needle and modified Seldinger technique. Guidewires were passed to the SVC, and peel-away sheaths were used to advance the leads into the circulation. Using fluoroscopic guidance, the RA and RV leads were positioned. ??The RV lead was advanced to the RV apex, and the RA lead was positioned in the RAA. Unfortunatel, the RA lead dislodged with multiple placements. The lead was extracted and a new lead was implanted. This lead was placed with a stable position in the RAA. ?? Adequate pacing and sensing ??parameters were obtained. ??All the leads were secured to the fascia with 0-Dexon. ??A subcutaneous pocket was created, and the pocket was irrigated with antibiotic solution and hemostasis was assured. The generator was connected to the leads and placed inside the pocket. A pursestring closure was placed around the access site. The pocket was filled with Floseal for hemostasis. The wound was closed with 3 running layers of absorbable suture, and a sterile dressing was applied. ?? Following pacemaker implantation, the dressing around the externalized ventricular lead was sterilely taken down. The lead was disconnected from the generator, and a stylet was inserted into the lead. The screw was backed out, and the lead was extracted with gentle traction. Pressure was held at the access site, and a dressing was applied. ?? Device data: Generator: [id number] ? Serial number: [id number] RA Lead: ??[id number] ?? Serial number: [id number] RV Lead: [id number] ?? Serial number: [id number] ?? Parameters: RA: ??P-wave amplitude: AF 1.1 mV Threshold: n/a V @ 0.4 msec ? Impedance: 410 ohms RV: ??R-wave amplitude: 10.4 mV Threshold: 0.5 V @ 0.4 msec ? Impedance: 540 ohms Programming: ?? Pacing Mode: ?DDI Lower Rate Limit: ?? 60 bpm Paced AV Delay: ??250 ms RA: Pacing output: 2.5 V @ 0.4 ms Sensitivity: 0.5 mV RV: Pacing output: ??2.0 V @ 0.4 ms Sensitivity: 2.0 mV Complications: There were no complications immediately apparent. Conclusions: Successful dual chamber pacemaker implantation. Successful extraction of a single chamber PPM lead. Follow-up and Recommendations: Bed rest for at least hour. Return to inpatient bed. AM PA/Lat CXR and PPM check. IV antibiotics while admitted. I was present during the entire procedure and personally composed and confirmed this report. Jayro Phan M.D., PhD. drilling and production superintendent [facility] in [place] us Kelsie Guillen NP CV ELECTROPHYSIOLOGY P ROCS Final Result * eGFR (03/30/2024 3:36 AM MUSIC ASSISTANT) eGFR 75 >=60 mL/min/1. 73 m2 Comment: Interpretive Data Reference Interval Normal ?>/= 90 mL/min/1.73m2 Mildly decreased* ? 60 - 89 mL/min/1.73m2 Mildly to moderately decreased ?45 - 59 mL/min/1.73m2 Moderately to severely decreased ??30 - 44 mL/min/1.73m2 Severely decreased ?15 - 29 mL/min/1.73m2 Kidney Failure ?< 15 ??mL/min/1.73m2 *Relative to young adult level Estimated glomerular filtration rate is determined by the 2020 CKD-EPI equation recommended by the National Kidney Foundation (A Unifying Approach to GFR Estimation: Recommendations of the NKF-ASK Task Force on Reassessing the Inclusion of Race in Diagnosing Kidney Disease, JASN 2020). The CKD-EPI equation should not be used for patients with unstable renal function and has not been validated in children and those over 70. Current interpretive data was last reviewed 2021. Blood 03/30/2024 3:36 AM MUSIC ASSISTANT 03/30/2024 4:28 AM MUSIC ASSISTANT us Shane Alfredo MD LAB BLOOD ORDERABLES Fi nal Result [facility] [place] [address] * Basic metabolic panel (03/30/2024 3:36 AM MUSIC ASSISTANT) Sodium 135 135 - 145 mmol/L Potassium, pl 4.6 3.3 - 4.9 mmol/L [facility] Chloride 102 97 - 110 mmol/L [facility] CO2 24 22 - 32 mmol/L [facility] Anion gap 9 2 - 15 mmol/L [facility] BUN 19 6 - 25 mg/dL [facility] Creatinine 0.99 0.80 - 1.30 mg/dL [facility] Glucose 108 70 - 199 mg/dL [facility] Comment: Interpretive Data Fasting glucose >/= 126 mg/dl is diagnostic for diabetes. ?? Fasting is defined as no caloric intake for at least 8 hours. Fasting glucose between 100 mg/dl to 125 mg/dl is diagnostic of prediabetes. In a patient with classic symptoms of hyperglycemia or hyperglycemic crisis, a random glucose >/= 200 mg/dl is diagnostic for diabetes. In the absence of unequivocal hyperglycemia, results should be confirmed by repeat testing. The classification and Diagnosis of Diabetes Diabetes Care 202; 46: S19-S40. Current interpretive data was last revised 2022. Calcium 8.9 8.5 - 10.3 mg/dL [facility] Blood 03/30/2024 3:36 AM MUSIC ASSISTANT 03/30/2024 4:28 AM MUSIC ASSISTANT Shane Alfredo MD LAB BLOOD ORDERABLES nal Result [facility] Department [place] [address] * eGFR (03/29/2024 3:21 AM MUSIC ASSISTANT) eGFR 69 >=60 mL/min/1. 73 m2 Comment: Interpretive Data Reference Interval Normal ?>/= 90 mL/min/1.73m2 Mildly decreased* ? 60 - 89 mL/min/1.73m2 Mildly to moderately decreased ?45 - 59 mL/min/1.73m2 Moderately to severely decreased ??30 - 44 mL/min/1.73m2 Severely decreased ?15 - 29 mL/min/1.73m2 Kidney Failure ?< 15 ??mL/min/1.73m2 *Relative to young adult level Estimated glomerular filtration rate is determined by the 2020 CKD-EPI equation recommended by the National Kidney Foundation (A Unifying Approach to GFR Estimation: Recommendations of the NKF-ASK Task Force on Reassessing the Inclusion of Race in Diagnosing Kidney Disease, JASN 2020). The CKD-EPI equation should not be used for patients with unstable renal function and has not been validated in children and those over 70. Current interpretive data was last reviewed 2021. Blood 03/29/2024 3:21 AM MUSIC ASSISTANT 03/29/2024 4:54 AM MUSIC ASSISTANT us Shane Alfredo MD LAB BLOOD ORDERABLES Fi nal Result [facility] Department [place] [address] * (ABNORMAL) CBC without differential (03/29/2024 3:21 AM MUSIC ASSISTANT) WBC 9.7 3.8 - 9.9 K/cumm Hgb 11.0(L) 13.0 - 17.5 g/dL [facility] Hct 33.8(L) 38.9 - 50.3 % [facility] Plt 214 150 - 400 K/cumm [facility] MPV 10.7 9.1 - 12.3 fL [facility] RBC 3.77(L) 4.30 - 5.80 M/cumm [facility] MCV 89.7 81.3 - 96.4 fL [facility] MCH 29.2 27.1 - 33.3 pg [facility] MCHC 32.5 32.3 - 35.7 g/dL [facility] RDW CV 13.7 11.1 - 14.9 % [facility] RDW SD 44.7 35.7 - 48.1 fL [facility] NRBC abs 0.00 0.00 - 0.01 K/cumm [facility] Blood 03/29/2024 3:21 AM MUSIC ASSISTANT 03/29/2024 4:32 AM MUSIC ASSISTANT us Apolonia L. Shipton DEMO COORDINATOR LAB BLOOD ORDERABLES Final Result [facility] [place] [address] * (ABNORMAL) Creatine kinase (CK), total (03/29/2024 3:21 AM MUSIC ASSISTANT) [facility] CK 37(L) 40 - 300 Units/L Blood 03/29/2024 3:21 AM MUSIC ASSISTANT 03/29/2024 4:32 AM MUSIC ASSISTANT Apolonia Briseno LAB BLOOD ORDERABLES Final Result Performing Organization Address [facility] Co de Phone Number [facility] [place] [address] * (ABNORMAL) Hepatic function panel (03/29/2024 3:21 AM MUSIC ASSISTANT) [facility] Bilirubin, total 0.5 0.1 - 1.2 mg/dL Bilirubin, direct <0.2 0.1 - 0.3 mg/dL [facility] Protein, pl 7.0 6.5 - 8.5 g/dL [facility] Albumin 3.3(L) 3.5 - 5.0 g/dL [facility] Alk phos 70 40 - 130 Units/L [facility] ALT 17 7 - 55 Units/L [facility] AST 21 10 - 50 Units/L [facility] Blood 03/29/2024 3:21 AM MUSIC ASSISTANT 03/29/2024 4:32 AM MUSIC ASSISTANT Apolonia Briseno DEMO COORDINATOR LAB BLOOD ORDERABLES Final Result Performing Organization Address City/[facility]/[place] [address] * Basic metabolic panel (03/29/2024 3:21 AM MUSIC ASSISTANT) [facility] Sodium 136 135 - 145 mmol/L Potassium, pl 4.6 3.3 - 4.9 mmol/L [facility] Chloride 100 97 - 110 mmol/L [facility] CO2 26 22 - 32 mmol/L [facility] Anion gap 10 2 - 15 mmol/L [facility] BUN 19 6 - 25 mg/dL [facility] Creatinine 1.06 0.80 - 1.30 mg/dL [facility] Glucose 105 70 - 199 mg/dL [facility] Comment: Interpretive Data Fasting glucose >/= 126 mg/dl is diagnostic for diabetes. ?? Fasting is defined as no caloric intake for at least 8 hours. Fasting glucose between 100 mg/dl to 125 mg/dl is diagnostic of prediabetes. In a patient with classic symptoms of hyperglycemia or hyperglycemic crisis, a random glucose >/= 200 mg/dl is diagnostic for diabetes. In the absence of unequivocal hyperglycemia, results should be confirmed by repeat testing. The classification and Diagnosis of Diabetes Diabetes Care 202; 46: S19-S40. Current interpretive data was last revised 2022. Calcium 9.4 8.5 - 10.3 mg/dL [facility] Blood 03/29/2024 3:21 AM MUSIC ASSISTANT 03/29/2024 4:32 AM MUSIC ASSISTANT us Shane Alfredo MD LAB BLOOD ORDERABLES Fi nal Result [facility] [place] [address] * eGFR (03/28/2024 3:21 AM MUSIC ASSISTANT) eGFR 73 >=60 mL/min/1. 73 m2 Comment: Interpretive Data Reference Interval Normal ?>/= 90 mL/min/1.73m2 Mildly decreased* ? 60 - 89 mL/min/1.73m2 Mildly to moderately decreased ?45 - 59 mL/min/1.73m2 Moderately to severely decreased ??30 - 44 mL/min/1.73m2 Severely decreased ?15 - 29 mL/min/1.73m2 Kidney Failure ?< 15 ??mL/min/1.73m2 *Relative to young adult level Estimated glomerular filtration rate is determined by the 2020 CKD-EPI equation recommended by the National Kidney Foundation (A Unifying Approach to GFR Estimation: Recommendations of the NKF-ASK Task Force on Reassessing the Inclusion of Race in Diagnosing Kidney Disease, JASN 2020). The CKD-EPI equation should not be used for patients with unstable renal function and has not been validated in children and those over 70. Current interpretive data was last reviewed 2021. Blood 03/28/2024 3:21 AM MUSIC ASSISTANT 03/28/2024 4:26 AM MUSIC ASSISTANT us Shane Alfredo MD LAB BLOOD ORDERABLES Fi nal Result [facility] Department [place] [address] * (ABNORMAL) Basic metabolic panel (03/28/2024 3:21 AM MUSIC ASSISTANT) Sodium 133(L) 135 - 145 mmol/L Potassium, pl 4.6 3.3 - 4.9 mmol/L [facility] Chloride 101 97 - 110 mmol/L [facility] CO2 26 22 - 32 mmol/L [facility] Anion gap 6 2 - 15 mmol/L [facility] BUN 20 6 - 25 mg/dL [facility] Creatinine 1.01 0.80 - 1.30 mg/dL [facility] Glucose 106 70 - 199 mg/dL [facility] Comment: Interpretive Data Fasting glucose >/= 126 mg/dl is diagnostic for diabetes. ?? Fasting is defined as no caloric intake for at least 8 hours. Fasting glucose between 100 mg/dl to 125 mg/dl is diagnostic of prediabetes. In a patient with classic symptoms of hyperglycemia or hyperglycemic crisis, a random glucose >/= 200 mg/dl is diagnostic for diabetes. In the absence of unequivocal hyperglycemia, results should be confirmed by repeat testing. The classification and Diagnosis of Diabetes Diabetes Care 202; 46: S19-S40. Current interpretive data was last revised 2022. Calcium 9.0 8.5 - 10.3 mg/dL [facility] Blood 03/28/2024 3:21 AM MUSIC ASSISTANT 03/28/2024 4:26 AM MUSIC ASSISTANT us Shane Alfredo MD LAB BLOOD ORDERABLES Fi nal Result [facility] Department [place] [address] * eGFR (03/27/2024 4:53 AM MUSIC ASSISTANT) eGFR 66 >=60 mL/min/1. 73 m2 Comment: Interpretive Data Reference Interval Normal ?>/= 90 mL/min/1.73m2 Mildly decreased* ? 60 - 89 mL/min/1.73m2 Mildly to moderately decreased ?45 - 59 mL/min/1.73m2 Moderately to severely decreased ??30 - 44 mL/min/1.73m2 Severely decreased ?15 - 29 mL/min/1.73m2 Kidney Failure ?< 15 ??mL/min/1.73m2 *Relative to young adult level Estimated glomerular filtration rate is determined by the 2020 CKD-EPI equation recommended by the National Kidney Foundation (A Unifying Approach to GFR Estimation: Recommendations of the NKF-ASK Task Force on Reassessing the Inclusion of Race in Diagnosing Kidney Disease, JASN 202). The CKD-EPI equation should not be used for patients with unstable renal function and has not been validated in children and those over 70. Current interpretive data was last reviewed 2021. Blood 03/27/2024 4:53 AM MUSIC ASSISTANT 03/27/2024 5:39 AM MUSIC ASSISTANT us Shane Alfredo MD LAB BLOOD ORDERABLES Fi nal Result [facility] Department [place] [address] * (ABNORMAL) CBC without differential (03/27/2024 4:53 AM MUSIC ASSISTANT) [facility] WBC 10.2(H) 3.8 - 9.9 K/cumm Hgb 11.4(L) 13.0 - 17.5 g/dL [facility] Hct 34.5(L) 38.9 - 50.3 % [facility] Plt 184 150 - 400 K/cumm [facility] MPV 10.9 9.1 - 12.3 fL [facility] RBC 3.82(L) 4.30 - 5.80 M/cumm [facility] MCV 90.3 81.3 - 96.4 fL [facility] MCH 29.8 27.1 - 33.3 pg [facility] MCHC 33.0 32.3 - 35.7 g/dL [facility] RDW CV 13.9 11.1 - 14.9 % [facility] RDW SD 45.7 35.7 - 48.1 fL [facility] NRBC abs 0.00 0.00 - 0.01 K/cumm [facility] Blood 03/27/2024 4:53 AM MUSIC ASSISTANT 03/27/2024 5:39 AM MUSIC ASSISTANT us Apolonia Briseno NP LAB BLOOD ORDERABLES Final Result [facility] Department [place] [address] * (ABNORMAL) Basic metabolic panel (03/27/2024 4:53 AM MUSIC ASSISTANT) [facility] Sodium 134(L) 135 - 145 mmol/L Potassium, pl 4.8 3.3 - 4.9 mmol/L [facility] Chloride 100 97 - 110 mmol/L [facility] CO2 26 22 - 32 mmol/L [facility] Anion gap 8 2 - 15 mmol/L [facility] BUN 20 6 - 25 mg/dL [facility] Creatinine 1.10 0.80 - 1.30 mg/dL [facility] Glucose 104 70 - 199 mg/dL [facility] Comment: Interpretive Data Fasting glucose >/= 126 mg/dl is diagnostic for diabetes. ?? Fasting is defined as no caloric intake for at least 8 hours. Fasting glucose between 100 mg/dl to 125 mg/dl is diagnostic of prediabetes. In a patient with classic symptoms of hyperglycemia or hyperglycemic crisis, a random glucose >/= 200 mg/dl is diagnostic for diabetes. In the absence of unequivocal hyperglycemia, results should be confirmed by repeat testing. The classification and Diagnosis of Diabetes Diabetes Care 202; 46: S19-S40. Current interpretive data was last revised 2022. Calcium 9.3 8.5 - 10.3 mg/dL [facility] Blood 03/27/2024 4:53 AM MUSIC ASSISTANT 03/27/2024 5:39 AM MUSIC ASSISTANT us Shane Alfredo MD LAB BLOOD ORDERABLES Fi nal Result [facility] Department [place] [address] * eGFR (03/26/2024 5:54 AM MUSIC ASSISTANT) eGFR 74 >=60 mL/min/1. 73 m2 Comment: Interpretive Data Reference Interval Normal ?>/= 90 mL/min/1.73m2 Mildly decreased* ? 60 - 89 mL/min/1.73m2 Mildly to moderately decreased ?45 - 59 mL/min/1.73m2 Moderately to severely decreased ??30 - 44 mL/min/1.73m2 Severely decreased ?15 - 29 mL/min/1.73m2 Kidney Failure ?< 15 ??mL/min/1.73m2 *Relative to young adult level Estimated glomerular filtration rate is determined by the 2020 CKD-EPI equation recommended by the National Kidney Foundation (A Unifying Approach to GFR Estimation: Recommendations of the NKF-ASK Task Force on Reassessing the Inclusion of Race in Diagnosing Kidney Disease, JASN 2020). The CKD-EPI equation should not be used for patients with unstable renal function and has not been validated in children and those over 70. Current interpretive data was last reviewed 2021. Blood 03/26/2024 5:54 AM MUSIC ASSISTANT 03/26/2024 6:37 AM MUSIC ASSISTANT Shane Alfredo MD LAB BLOOD ORDERABLES Fi nal Result Performing Organization Address City/State/[facility] Co de Phone Number [facility] Department [place] [address] * (ABNORMAL) Basic metabolic panel (03/26/2024 5:54 AM MUSIC ASSISTANT) Sodium 134(L) 135 - 145 mmol/L Potassium, pl 4.7 3.3 - 4.9 mmol/L [facility] Chloride 100 97 - 110 mmol/L [facility] CO2 24 22 - 32 mmol/L [facility] Anion gap 10 2 - 15 mmol/L [facility] BUN 17 6 - 25 mg/dL [facility] Creatinine 1.00 0.80 - 1.30 mg/dL [facility] Glucose 102 70 - 199 mg/dL [facility] Comment: Interpretive Data Fasting glucose >/= 126 mg/dl is diagnostic for diabetes. ?? Fasting is defined as no caloric intake for at least 8 hours. Fasting glucose between 100 mg/dl to 125 mg/dl is diagnostic of prediabetes. In a patient with classic symptoms of hyperglycemia or hyperglycemic crisis, a random glucose >/= 200 mg/dl is diagnostic for diabetes. In the absence of unequivocal hyperglycemia, results should be confirmed by repeat testing. The classification and Diagnosis of Diabetes Diabetes Care 202; 46: S19-S40. Current interpretive data was last revised 2022. Calcium 8.6 8.5 - 10.3 mg/dL [facility] Blood 03/26/2024 5:54 AM MUSIC ASSISTANT 03/26/2024 6:37 AM MUSIC ASSISTANT Shane Alfredo MD LAB BLOOD ORDERABLES Fi nal Result Performing Organization Address [facility] Co de Phone Number [facility] [place] [address] * POCT glucose (03/25/2024 5:02 PM MUSIC ASSISTANT) Glucose, POC 117 70 - 199 mg/dL Blood 03/25/2024 5:02 PM MUSIC ASSISTANT 03/25/2024 5:02 PM MUSIC ASSISTANT us Shane Alfredo MD LAB POCT ORDERABLES - D EVICE Final Result Performing Organization Address [facility] de Phone Number [facility] [place] [address] * POCT glucose (03/25/2024 7:18 AM MUSIC ASSISTANT) Glucose, POC 102 70 - 199 mg/dL Blood 03/25/2024 7:18 AM MUSIC ASSISTANT 03/25/2024 7:18 AM MUSIC ASSISTANT Shane Alfredo MD LAB POCT ORDERABLES - D EVICE Final Result Performing Organization Address [facility] de Phone Number [facility] [place] [address] * eGFR (03/25/2024 5:24 AM MUSIC ASSISTANT) eGFR 68 >=60 mL/min/1. 73 m2 Comment: Interpretive Data Reference Interval Normal ?>/= 90 mL/min/1.73m2 Mildly decreased* ? 60 - 89 mL/min/1.73m2 Mildly to moderately decreased ?45 - 59 mL/min/1.73m2 Moderately to severely decreased ??30 - 44 mL/min/1.73m2 Severely decreased ?15 - 29 mL/min/1.73m2 Kidney Failure ?< 15 ??mL/min/1.73m2 *Relative to young adult level Estimated glomerular filtration rate is determined by the 2020 CKD-EPI equation recommended by the National Kidney Foundation (A Unifying Approach to GFR Estimation: Recommendations of the NKF-ASK Task Force on Reassessing the Inclusion of Race in Diagnosing Kidney Disease, JASN 2020). The CKD-EPI equation should not be used for patients with unstable renal function and has not been validated in children and those over 70. Current interpretive data was last reviewed 2021. Blood 03/25/2024 5:24 AM MUSIC ASSISTANT 03/25/2024 5:56 AM MUSIC ASSISTANT us Shane Alfredo MD LAB BLOOD ORDERABLES Fi nal Result [facility] [place] [address] * (ABNORMAL) Basic metabolic panel (03/25/2024 5:24 AM MUSIC ASSISTANT) Sodium 132(L) 135 - 145 mmol/L Potassium, pl 4.7 3.3 - 4.9 mmol/L [facility] Chloride 99 97 - 110 mmol/L [facility] CO2 27 22 - 32 mmol/L [facility] Anion gap 6 2 - 15 mmol/L [facility] BUN 17 6 - 25 mg/dL [facility] Creatinine 1.07 0.80 - 1.30 mg/dL [facility] Glucose 114 70 - 199 mg/dL [facility] Comment: Interpretive Data Fasting glucose >/= 126 mg/dl is diagnostic for diabetes. ?? Fasting is defined as no caloric intake for at least 8 hours. Fasting glucose between 100 mg/dl to 125 mg/dl is diagnostic of prediabetes. In a patient with classic symptoms of hyperglycemia or hyperglycemic crisis, a random glucose >/= 200 mg/dl is diagnostic for diabetes. In the absence of unequivocal hyperglycemia, results should be confirmed by repeat testing. The classification and Diagnosis of Diabetes Diabetes Care 202; 46: S19-S40. Current interpretive data was last revised 2022. Calcium 9.0 8.5 - 10.3 mg/dL [facility] Blood 03/25/2024 5:24 AM MUSIC ASSISTANT 03/25/2024 5:56 AM MUSIC ASSISTANT us Shane Alfredo MD LAB BLOOD ORDERABLES Fi nal Result [facility] Department [place] [address] * eGFR (03/24/2024 3:36 AM MUSIC ASSISTANT) eGFR 65 >=60 mL/min/1. 73 m2 Comment: Interpretive Data Reference Interval Normal ?>/= 90 mL/min/1.73m2 Mildly decreased* ? 60 - 89 mL/min/1.73m2 Mildly to moderately decreased ?45 - 59 mL/min/1.73m2 Moderately to severely decreased ??30 - 44 mL/min/1.73m2 Severely decreased ?15 - 29 mL/min/1.73m2 Kidney Failure ?< 15 ??mL/min/1.73m2 *Relative to young adult level Estimated glomerular filtration rate is determined by the 2020 CKD-EPI equation recommended by the National Kidney Foundation (A Unifying Approach to GFR Estimation: Recommendations of the NKF-ASK Task Force on Reassessing the Inclusion of Race in Diagnosing Kidney Disease, JASN 2020). The CKD-EPI equation should not be used for patients with unstable renal function and has not been validated in children and those over 70. Current interpretive data was last reviewed 2021. Blood 03/24/2024 3:36 AM MUSIC ASSISTANT 03/24/2024 4:34 AM MUSIC ASSISTANT us Shane Alfredo MD LAB BLOOD ORDERABLES Fi nal Result [facility] [place] [address] * (ABNORMAL) Differential, auto (03/24/2024 3:36 AM MUSIC ASSISTANT) Neutrophil abs 6.5 1.5 - 6.5 K/cumm Imm gran abs 0.0 0.0 - 0.1 K/cumm [facility] Lymphocyte abs 1.4 0.8 - 3.3 K/cumm [facility] Monocyte abs 1.1(H) 0.2 - 0.8 K/cumm [facility] Eosinophil abs 0.5 0.0 - 0.5 K/cumm [facility] Basophil abs 0.0 0.0 - 0.1 K/cumm [facility] Neutrophil pct 68.2 % [facility] Comment: Interpretive Data Percent cell count reference ranges are not reported, since discordance with absolute values may lead to misinterpretation of CBC data. Current Interpretive Data was last revised on 2017. Imm gran pct 0.3 % [facility] Comment: Interpretive Data Percent cell count reference ranges are not reported, since discordance with absolute values may lead to misinterpretation of CBC data. Current Interpretive Data was last revised on 2017. Lymphocyte pct 14.7 % [facility] Comment: Interpretive Data Percent cell count reference ranges are not reported, since discordance with absolute values may lead to misinterpretation of CBC data. Current Interpretive Data was last revised on 2017. Monocyte pct 11.4 % [facility] Comment: Interpretive Data Percent cell count reference ranges are not reported, since discordance with absolute values may lead to misinterpretation of CBC data. Current Interpretive Data was last revised on 2017. Eosinophil pct 5.1 % [facility] Comment: Interpretive Data Percent cell count reference ranges are not reported, since discordance with absolute values may lead to misinterpretation of CBC data. Current Interpretive Data was last revised on 2017. Basophil pct 0.3 % [facility] Comment: Interpretive Data Percent cell count reference ranges are not reported, since discordance with absolute values may lead to misinterpretation of CBC data. Current Interpretive Data was last revised on 2017. Blood 03/24/2024 3:36 AM MUSIC ASSISTANT 03/24/2024 4:38 AM MUSIC ASSISTANT Rahel Dubon NP LAB BLOOD ORDERABLES F inal Result [facility] [place] [address] * (ABNORMAL) CBC with auto differential (03/24/2024 3:36 AM MUSIC ASSISTANT) WBC 10.0(H) 3.8 - 9.9 K/cumm Hgb 10.5(L) 13.0 - 17.5 g/dL [facility] Hct 32.7(L) 38.9 - 50.3 % [facility] Plt 145(L) 150 - 400 K/cumm [facility] MPV 11.4 9.1 - 12.3 fL [facility] RBC 3.63(L) 4.30 - 5.80 M/cumm [facility] MCV 90.1 81.3 - 96.4 fL [facility] MCH 28.9 27.1 - 33.3 pg [facility] MCHC 32.1(L) 32.3 - 35.7 g/dL [facility] RDW CV 13.8 11.1 - 14.9 % [facility] RDW SD 45.2 35.7 - 48.1 fL [facility] NRBC abs 0.00 0.00 - 0.01 K/cumm [facility] Blood 03/24/2024 3:36 AM MUSIC ASSISTANT 03/24/2024 4:38 AM MUSIC ASSISTANT Rahel Mora Ling DEMO COORDINATOR LAB BLOOD ORDERABLES F inal Result [facility] [place] [address] * CBC without differential (03/24/2024 3:36 AM MUSIC ASSISTANT) WBC See Comment 3.8 - 9.9 Comment:Credited, duplicate test. Hgb See Comment 13.0 - 17.5 [facility] Comment:Credited, duplicate test. Hct See Comment 38.9 - 50.3 [facility] Comment:Credited, duplicate test. Plt See Comment 150 - 400 [facility] Comment:Credited, duplicate test. MPV See Comment 9.1 - 12.3 [facility] Comment:Credited, duplicate test. RBC See Comment 4.30 - 5.80 [facility] Comment:Credited, duplicate test. MCV See Comment 81.3 - 96.4 [facility] Comment:Credited, duplicate test. MCH See Comment 27.1 - 33.3 [facility] Comment:Credited, duplicate test. MCHC See Comment 32.3 - 35.7 [facility] Comment:Credited, duplicate test. RDW CV See Comment 11.1 - 14.9 [facility] Comment:Credited, duplicate test. RDW SD See Comment 35.7 - 48.1 [facility] Comment:Credited, duplicate test. NRBC abs See Comment 0.00 - 0.01 K/cumm [facility] Comment:Credited, duplicate test. Blood 03/24/2024 3:36 AM MUSIC ASSISTANT 03/24/2024 4:34 AM MUSIC ASSISTANT Apolonia Briseno DEMO COORDINATOR LAB BLOOD ORDERABLES Edite d Result - [facility] [place] [address] * Basic metabolic panel (03/24/2024 3:36 AM MUSIC ASSISTANT) [facility] Sodium 135 135 - 145 mmol/L Potassium, pl 4.9 3.3 - 4.9 mmol/L [facility] Chloride 101 97 - 110 mmol/L [facility] CO2 26 22 - 32 mmol/L [facility] Anion gap 8 2 - 15 mmol/L [facility] BUN 19 6 - 25 mg/dL [facility] Creatinine 1.11 0.80 - 1.30 mg/dL [facility] Glucose 103 70 - 199 mg/dL [facility] Comment: Interpretive Data Fasting glucose >/= 126 mg/dl is diagnostic for diabetes. ?? Fasting is defined as no caloric intake for at least 8 hours. Fasting glucose between 100 mg/dl to 125 mg/dl is diagnostic of prediabetes. In a patient with classic symptoms of hyperglycemia or hyperglycemic crisis, a random glucose >/= 200 mg/dl is diagnostic for diabetes. In the absence of unequivocal hyperglycemia, results should be confirmed by repeat testing. The classification and Diagnosis of Diabetes Diabetes Care 2021; 46: S19-S40. Current interpretive data was last revised 2022. Calcium 8.9 8.5 - 10.3 mg/dL [facility] Blood 03/24/2024 3:36 AM MUSIC ASSISTANT 03/24/2024 4:34 AM MUSIC ASSISTANT Shane Alfredo MD LAB BLOOD ORDERABLES Fi nal Result [facility] [place] [address] * eGFR (03/23/2024 5:03 AM MUSIC ASSISTANT) [facility] eGFR 62 >=60 mL/min/1. 73 m2 Comment: Interpretive Data Reference Interval Normal ?>/= 90 mL/min/1.73m2 Mildly decreased* ? 60 - 89 mL/min/1.73m2 Mildly to moderately decreased ?45 - 59 mL/min/1.73m2 Moderately to severely decreased ??30 - 44 mL/min/1.73m2 Severely decreased ?15 - 29 mL/min/1.73m2 Kidney Failure ?< 15 ??mL/min/1.73m2 *Relative to young adult level Estimated glomerular filtration rate is determined by the 2020 CKD-EPI equation recommended by the National Kidney Foundation (A Unifying Approach to GFR Estimation: Recommendations of the NKF-ASK Task Force on Reassessing the Inclusion of Race in Diagnosing Kidney Disease, JASN 2020). The CKD-EPI equation should not be used for patients with unstable renal function and has not been validated in children and those over 70. Current interpretive data was last reviewed 2021. Blood 03/23/2024 5:03 AM MUSIC ASSISTANT 03/23/2024 6:06 AM MUSIC ASSISTANT us Shane Alfredo MD LAB BLOOD ORDERABLES Fi nal Result [facility] [place] [address] * (ABNORMAL) Basic metabolic panel (03/23/2024 5:03 AM MUSIC ASSISTANT) Sodium 134(L) 135 - 145 mmol/L Potassium, pl 4.9 3.3 - 4.9 mmol/L [facility] Chloride 100 97 - 110 mmol/L [facility] CO2 25 22 - 32 mmol/L [facility] Anion gap 9 2 - 15 mmol/L [facility] BUN 19 6 - 25 mg/dL [facility] Creatinine 1.16 0.80 - 1.30 mg/dL [facility] Glucose 101 70 - 199 mg/dL [facility] Comment: Interpretive Data Fasting glucose >/= 126 mg/dl is diagnostic for diabetes. ?? Fasting is defined as no caloric intake for at least 8 hours. Fasting glucose between 100 mg/dl to 125 mg/dl is diagnostic of prediabetes. In a patient with classic symptoms of hyperglycemia or hyperglycemic crisis, a random glucose >/= 200 mg/dl is diagnostic for diabetes. In the absence of unequivocal hyperglycemia, results should be confirmed by repeat testing. The classification and Diagnosis of Diabetes Diabetes Care 2021; 46: S19-S40. Current interpretive data was last revised 2022. Calcium 8.9 8.5 - 10.3 mg/dL [facility] Blood 03/23/2024 5:03 AM MUSIC ASSISTANT 03/23/2024 6:06 AM MUSIC ASSISTANT us Shane Alfredo MD LAB BLOOD ORDERABLES Fi nal Result [facility] Department [place] [address] * (ABNORMAL) CBC without differential (03/22/2024 5:00 AM MUSIC ASSISTANT) [facility] WBC 8.6 3.8 - 9.9 K/cumm Hgb 10.9(L) 13.0 - 17.5 g/dL [facility] Hct 34.1(L) 38.9 - 50.3 % [facility] Plt 132(L) 150 - 400 K/cumm [facility] MPV 11.3 9.1 - 12.3 fL [facility] RBC 3.71(L) 4.30 - 5.80 M/cumm [facility] MCV 91.9 81.3 - 96.4 fL [facility] MCH 29.4 27.1 - 33.3 pg [facility] MCHC 32.0(L) 32.3 - 35.7 g/dL [facility] RDW CV 13.6 11.1 - 14.9 % [facility] RDW SD 45.7 35.7 - 48.1 fL [facility] NRBC abs 0.00 0.00 - 0.01 K/cumm [facility] Blood 03/22/2024 5:00 AM MUSIC ASSISTANT 03/22/2024 5:57 AM MUSIC ASSISTANT Apolonia Briseno DEMO COORDINATOR LAB BLOOD ORDERABLES Final Result Performing Organization Address [facility] Co de Phone Number [facility] [place] [address] * Creatine kinase (CK), total (03/22/2024 5:00 AM MUSIC ASSISTANT) Pathologist [facility] CK 68 40 - 300 Units/L Blood 03/22/2024 5:00 AM MUSIC ASSISTANT 03/22/2024 7:36 AM MUSIC ASSISTANT Apolonia Briseno DEMO COORDINATOR LAB BLOOD ORDERABLES Final Result Performing Organization Address [facility] [place] [address] * Hepatic function panel (03/22/2024 5:00 AM MUSIC ASSISTANT) Pathologist [facility] Bilirubin, total 0.5 0.1 - 1.2 mg/dL Bilirubin, direct <0.2 0.1 - 0.3 mg/dL [facility] Protein, pl 6.7 6.5 - 8.5 g/dL [facility] Albumin 3.5 3.5 - 5.0 g/dL [facility] Alk phos 75 40 - 130 Units/L [facility] ALT 33 7 - 55 Units/L [facility] AST 33 10 - 50 Units/L [facility] Blood 03/22/2024 5:00 AM MUSIC ASSISTANT 03/22/2024 7:36 AM MUSIC ASSISTANT Apolonia Briseno NP LAB BLOOD ORDERABLES Final Result Performing Organization Address [facility] Co de Phone Number [facility] [place] [address] * XR Chest 1 View (03/21/2024 5:03 AM MUSIC ASSISTANT) Anatomical Region Laterality Modality Body, Chest N/A Digital Radiogra phy 03/21/2024 8:44 AM MUSIC ASSISTANT Impressions 03/21/2024 12:33 PM MUSIC ASSISTANT The current study is compared with the prior radiograph dated 03/09/2024 at 8:35 AM. ??Right internal jugular transvenous cardiac pacemaker lead overlying the right ventricle. ??The radiograph is rotated to the right and the median sternotomy wires appear aligned and intact given this rotation. There is no consolidation, pneumothorax, or pleural effusion. ??Heart size is normal. ??The aorta is tortuous and unchanged. Dictated by: Faustino Palencia M.D. The radiology attending physician has personally reviewed this study, and had reviewed and/or edited this written report and agrees with it. Electronically signed by: Branonn Alcazar M.D. Narrative 03/21/2024 12:33 PM MUSIC ASSISTANT EXAMINATION: 1 view chest radiograph Procedure Note Brannon Alcazar MD PhD - 03/21/2024 EXAMINATION: 1 view chest radiograph IMPRESSION: The current study is compared with the prior radiograph dated 03/09/2024 at 8:35 AM. Right internal jugular transvenous cardiac pacemaker lead overlying the right ventricle. The radiograph is rotated to the right and the median sternotomy wires appear aligned and intact given this rotation. There is no consolidation, pneumothorax, or pleural effusion. Heart size is normal. The aorta is tortuous and unchanged. Dictated by: Faustino Palencia M.D. The radiology attending physician has personally reviewed this study, and had reviewed and/or edited this written report and agrees with it. Electronically signed by: Brannon Alcazar M.D. us Shane Alfredo MD IMG XR PROCEDURES Final Result * eGFR (03/21/2024 3:34 AM MUSIC ASSISTANT) eGFR 61 >=60 mL/min/1. 73 m2 Comment: Interpretive Data Reference Interval Normal ?>/= 90 mL/min/1.73m2 Mildly decreased* ? 60 - 89 mL/min/1.73m2 Mildly to moderately decreased ?45 - 59 mL/min/1.73m2 Moderately to severely decreased ??30 - 44 mL/min/1.73m2 Severely decreased ?15 - 29 mL/min/1.73m2 Kidney Failure ?< 15 ??mL/min/1.73m2 *Relative to young adult level Estimated glomerular filtration rate is determined by the 2020 CKD-EPI equation recommended by the National Kidney Foundation (A Unifying Approach to GFR Estimation: Recommendations of the NKF-ASK Task Force on Reassessing the Inclusion of Race in Diagnosing Kidney Disease, JASN 2020). The CKD-EPI equation should not be used for patients with unstable renal function and has not been validated in children and those over 70. Current interpretive data was last reviewed 2021. Blood 03/21/2024 3:34 AM MUSIC ASSISTANT 03/21/2024 6:33 AM MUSIC ASSISTANT Shane Alfredo MD LAB BLOOD ORDERABLES Fi nal Result [facility] Department [place] [address] * Blood culture Blood (03/21/2024 3:34 AM MUSIC ASSISTANT) Report Final Report: No growth Blood 03/21/2024 3:34 AM MUSIC ASSISTANT 03/21/2024 7:11 AM MUSIC ASSISTANT Narrative [facility] - 03/25/2024 12:00 PM MUSIC ASSISTANT Collection->Peripheral 1. ?Blood cultures are incubated for 4 days on a continuously monitored blood culture system. The first report of a negative culture is issued within 24 hours of receipt of the specimen in the laboratory. 2. ?Positive culture results are reported as soon as they are detected. 3. ?The most important factor for detection of microbes in the setting of bloodstream infection is the volume of blood submitted for culture. Failure to collect an optimal blood volume can result in false negative blood cultures. For pediatric patients, the recommended blood volume to collect is 1 mL of blood per year of patient age (up to 20 mL) per blood culture set. For adult patients, 20 mL of blood, divided equally between aerobic and anaerobic blood culture bottles, is recommended for each blood culture set. 4. ?For blood cultures with Gram-positive cocci, a rapid molecular test for organism identification may be performed using the Devotee Gram-Positive Blood Culture Assay. This assay detects microbial DNA in positive blood culture broth via hybridization of target DNA to capture oligonucleotides on a microarray. This assay has been cleared by the [place] Food and Drug Administration and its performance characteristics have been verified by the [facility] Microbiology Laboratory. 5. ?For questions about this culture, contact the Microbiology Laboratory at [phone]. Interpretive data was last revised on 2019. Shane Alfredo MD LAB MICROBIOLOGY - GENE [facility] ORDERABLES Final Result [facility] Department [place] [address] * Blood culture Blood (03/21/2024 3:34 AM MUSIC ASSISTANT) Report Final Report: No growth Blood 03/21/2024 3:34 AM MUSIC ASSISTANT 03/21/2024 7:10 AM MUSIC ASSISTANT Narrative [facility] - 03/25/2024 12:00 PM MUSIC ASSISTANT Collection->Peripheral 1. ?Blood cultures are incubated for 4 days on a continuously monitored blood culture system. The first report of a negative culture is issued within 24 hours of receipt of the specimen in the laboratory. 2. ?Positive culture results are reported as soon as they are detected. 3. ?The most important factor for detection of microbes in the setting of bloodstream infection is the volume of blood submitted for culture. Failure to collect an optimal blood volume can result in false negative blood cultures. For pediatric patients, the recommended blood volume to collect is 1 mL of blood per year of patient age (up to 20 mL) per blood culture set. For adult patients, 20 mL of blood, divided equally between aerobic and anaerobic blood culture bottles, is recommended for each blood culture set. 4. ?For blood cultures with Gram-positive cocci, a rapid molecular test for organism identification may be performed using the Bit9igene Gram-Positive Blood Culture Assay. This assay detects microbial DNA in positive blood culture broth via hybridization of target DNA to capture oligonucleotides on a microarray. This assay has been cleared by the [place] Food and Drug Administration and its performance characteristics have been verified by the [facility]biology Laboratory. 5. ?For questions about this culture, contact the Microbiology Laboratory at [phone]. Interpretive data was last revised on 2019. us Shane Alfredo MD LAB MICROBIOLOGY - GENE RAL ORDERABLES Final Result [facility] Department [place] [address] * (ABNORMAL) CBC without differential (03/21/2024 3:34 AM MUSIC ASSISTANT) WBC 8.3 3.8 - 9.9 K/cumm Hgb 11.5(L) 13.0 - 17.5 g/dL [facility] Hct 35.8(L) 38.9 - 50.3 % [facility] Plt 147(L) 150 - 400 K/cumm [facility] MPV 11.2 9.1 - 12.3 fL [facility] RBC 3.92(L) 4.30 - 5.80 M/cumm [facility] MCV 91.3 81.3 - 96.4 fL [facility] MCH 29.3 27.1 - 33.3 pg [facility] MCHC 32.1(L) 32.3 - 35.7 g/dL [facility] RDW CV 13.7 11.1 - 14.9 % [facility] RDW SD 45.8 35.7 - 48.1 fL [facility] NRBC abs 0.00 0.00 - 0.01 K/cumm [facility] Blood 03/21/2024 3:34 AM MUSIC ASSISTANT 03/21/2024 6:33 AM MUSIC ASSISTANT Shane Alfredo MD LAB BLOOD ORDERABLES Fi nal Result Performing Organization Address [facility] Co de Phone Number [facility] Department [place] [address] * (ABNORMAL) Basic metabolic panel (03/21/2024 3:34 AM MUSIC ASSISTANT) [facility] Sodium 134(L) 135 - 145 mmol/L Potassium, pl 4.7 3.3 - 4.9 mmol/L [facility] Chloride 101 97 - 110 mmol/L [facility] CO2 24 22 - 32 mmol/L [facility] Anion gap 9 2 - 15 mmol/L [facility] BUN 20 6 - 25 mg/dL [facility] Creatinine 1.17 0.80 - 1.30 mg/dL [facility] Glucose 85 70 - 199 mg/dL [facility] Comment: Interpretive Data Fasting glucose >/= 126 mg/dl is diagnostic for diabetes. ?? Fasting is defined as no caloric intake for at least 8 hours. Fasting glucose between 100 mg/dl to 125 mg/dl is diagnostic of prediabetes. In a patient with classic symptoms of hyperglycemia or hyperglycemic crisis, a random glucose >/= 200 mg/dl is diagnostic for diabetes. In the absence of unequivocal hyperglycemia, results should be confirmed by repeat testing. The classification and Diagnosis of Diabetes Diabetes Care 2021; 46: S19-S40. Current interpretive data was last revised 2022. Calcium 9.1 8.5 - 10.3 mg/dL [facility] Blood 03/21/2024 3:34 AM MUSIC ASSISTANT 03/21/2024 6:33 AM MUSIC ASSISTANT Shane Alfredo MD LAB BLOOD ORDERABLES Fi nal Result Performing Organization Address [facility] Co de Phone Number [facility] Department [place] [address] * TEMPOARY PACING INSERT/REPLACE LEAD (03/20/2024 2:40 PM MUSIC ASSISTANT) Anatomical Region Laterality Modality X-Ray Angiograph y Narrative 03/20/2024 2:46 PM MUSIC ASSISTANT Patient Name: Kelsie Vo Date of : 1940 Primary Care Provider: Robert Whitlock MD Primary Cloud Automation Tester: Mariana Benavides MD MBA Primary Cardiac Seal Extrusion Operator: Shane Alfredo MD Procedure Date: 03/20/2024 Attending Seal Extrusion Operator: Franklyn Worthintgon MD MBA Electrophysiology Fellow: Arun Grier MD Name of procedure: 1. Placement of a temporary externalized single-chamber pacemaker via right internal jugular (RIJ) approach 2. Removal of left internal jugular (LIJ) externalized single-chamber pacemaker History: Mr. 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 He underwent extraction of his right-sided dual-chamber permanent pacemaker on 03/07/24 but required placement of a left-sided temporary-externalized device prior to extraction due to high grade AV block. Post-operatively, Mr. Vo has remained bacteremic despite removal of his permanent CIED system and ongoing antibiotic therapy. A repeat JOSEPH on 03/17/24 revealed evidence of lead vegetation on his temporary RV pacing lead. He now presents for removal of his left-sided temporary externalized device with placement of a new temporary externalized single-chamber pacemaker system via a right internal jugular (RIJ) approach. Methods: After informed consent was obtained, the patient was brought to the EP laboratory in a postabsorptive, nonsedated state. ??Peripheral IV access was established. ??Continuous ECG, blood pressure, and pulse oximetry were initiated. ??Cardioversion patch electrodes were placed on the patient's chest and back. ??A grounding patch was applied to the skin. ??Conscious sedation was administered by EP laboratory staff. ?? Central venous access obtained under ultrasound guidance in the right internal jugular (RIJ) vein using micropuncture and modified Seldinger technique. ??A guidewire was passed into the circulation. A short, 6 Fr sheath was advanced over the wire. Under fluoroscopic guidance, a pace-sense lead was advanced through the sheath and positioned along the ventricular septum. Lead position was confirmed in the BARRERA and KINYARWANDA views. ??Adequate sensing and pacing parameters were found, and no diaphragmatic stimulation was seen with high-output pacing. The sheath was split, and the lead was secured to the skin on the surface of the neck with Ethibond ties. ??The lead was connected to a generator which was also secured to the skin. The externalized lead/generator system was secured to the neck using a large dressing. Once the new externalized pacing system was in place, we freed the existing generator and lead from the right neck. The RV lead screw was retracted and the lead was removed from the circulation via the LIJ under fluoroscopic guidance. Manual pressure was used to achieve hemostasis in the LIJ. A bandage was used to cover the wound. The new right-sided externalized lead/generator system was secured to the neck using a large dressing. Following the procedure, the patient was taken to the recovery area in stable condition. Lead parameters and device programming: - RV Lead (Model #2088TC/52, Serial #[id number]): Sensing 10.6 mV, Pacing threshold 1.0 V at 0.5 ms, Imp 810 Ohms - Device: Clement Assurity MRI (Model #1272, Serial #[id number]), programmed VVI 50 Explanted device: - RA Lead (Model #2088TC/65, Serial #[id number]) - Device: Clement Assurity MRI (Model #1272, Serial #[id number]) Conclusions: 1. Successful placement of a temporary externalized single-chamber pacemaker via right internal jugular (RIJ) approach 2. Successful removal of left internal jugular (LIJ) externalized single-chamber pacemaker Recommendations: 1. Patient to return to previous bed. 2. Resume all medications (including antibiotic therapy) when patient returns to the floor. 3. Portable 1-view CXR in the morning. 4. Follow-up ID recs regarding timing of repeat blood cultures and permanent device implant Franklyn Worthington MD MBA [employer] and production superintendent [employer] Division of Cardiology, Section of Electrophysiology 03/20/2024 1:56 PM us Franklyn Worthington MD CV ELECTROPHYSIOLOGY PROC S Final Result * (ABNORMAL) eGFR (03/20/2024 3:17 AM MUSIC ASSISTANT) eGFR 59(L) >=60 mL/min/1. 73 m2 Comment: Interpretive Data Reference Interval Normal ?>/= 90 mL/min/1.73m2 Mildly decreased* ? 60 - 89 mL/min/1.73m2 Mildly to moderately decreased ?45 - 59 mL/min/1.73m2 Moderately to severely decreased ??30 - 44 mL/min/1.73m2 Severely decreased ?15 - 29 mL/min/1.73m2 Kidney Failure ?< 15 ??mL/min/1.73m2 *Relative to young adult level Estimated glomerular filtration rate is determined by the 2020 CKD-EPI equation recommended by the National Kidney Foundation (A Unifying Approach to GFR Estimation: Recommendations of the NKF-ASK Task Force on Reassessing the Inclusion of Race in Diagnosing Kidney Disease, JASN 2020). The CKD-EPI equation should not be used for patients with unstable renal function and has not been validated in children and those over 70. Current interpretive data was last reviewed 2021. Blood 03/20/2024 3:17 AM MUSIC ASSISTANT 03/20/2024 4:06 AM MUSIC ASSISTANT us Shane Alfredo MD LAB BLOOD ORDERABLES Fi nal Result [facility] Department of Laboratories [place], [place] [id number] * Blood culture Blood (03/20/2024 3:17 AM MUSIC ASSISTANT) Report Final Report: No growth Blood 03/20/2024 3:17 AM MUSIC ASSISTANT 03/20/2024 4:08 AM MUSIC ASSISTANT Narrative [facility] - 03/24/2024 7:00 AM MUSIC ASSISTANT Collection->Peripheral 1. ?Blood cultures are incubated for 4 days on a continuously monitored blood culture system. The first report of a negative culture is issued within 24 hours of receipt of the specimen in the laboratory. 2. ?Positive culture results are reported as soon as they are detected. 3. ?The most important factor for detection of microbes in the setting of bloodstream infection is the volume of blood submitted for culture. Failure to collect an optimal blood volume can result in false negative blood cultures. For pediatric patients, the recommended blood volume to collect is 1 mL of blood per year of patient age (up to 20 mL) per blood culture set. For adult patients, 20 mL of blood, divided equally between aerobic and anaerobic blood culture bottles, is recommended for each blood culture set. 4. ?For blood cultures with Gram-positive cocci, a rapid molecular test for organism identification may be performed using the Dev[employer]e Gram-Positive Blood Culture Assay. This assay detects microbial DNA in positive blood culture broth via hybridization of target DNA to capture oligonucleotides on a microarray. This assay has been cleared by the [place] Food and Drug Administration and its performance characteristics have been verified by the [facility] Microbiology Laboratory. 5. ?For questions about this culture, contact the Microbiology Laboratory at [phone]. Interpretive data was last revised on 2019. us Shane Alfredo MD LAB MICROBIOLOGY - GENE RAL ORDERABLES Final Result [facility] [place] [address] * Blood culture Blood (03/20/2024 3:17 AM MUSIC ASSISTANT) Report Final Report: No growth Blood 03/20/2024 3:17 AM MUSIC ASSISTANT 03/20/2024 4:08 AM MUSIC ASSISTANT Narrative [facility] - 03/24/2024 7:00 AM MUSIC ASSISTANT Collection->Peripheral 1. ?Blood cultures are incubated for 4 days on a continuously monitored blood culture system. The first report of a negative culture is issued within 24 hours of receipt of the specimen in the laboratory. 2. ?Positive culture results are reported as soon as they are detected. 3. ?The most important factor for detection of microbes in the setting of bloodstream infection is the volume of blood submitted for culture. Failure to collect an optimal blood volume can result in false negative blood cultures. For pediatric patients, the recommended blood volume to collect is 1 mL of blood per year of patient age (up to 20 mL) per blood culture set. For adult patients, 20 mL of blood, divided equally between aerobic and anaerobic blood culture bottles, is recommended for each blood culture set. 4. ?For blood cultures with Gram-positive cocci, a rapid molecular test for organism identification may be performed using the Bit9igene Gram-Positive Blood Culture Assay. This assay detects microbial DNA in positive blood culture broth via hybridization of target DNA to capture oligonucleotides on a microarray. This assay has been cleared by the [place] Food and Drug Administration and its performance characteristics have been verified by the [facility]biology Laboratory. 5. ?For questions about this culture, contact the Microbiology Laboratory at [phone]. Interpretive data was last revised on 2019. us Shane Alfredo MD LAB MICROBIOLOGY - GENE [facility] ORDERABLES Final Result [facility] Department [place] [address] * (ABNORMAL) CBC without differential (03/20/2024 3:17 AM MUSIC ASSISTANT) [facility] WBC 7.2 3.8 - 9.9 K/cumm Hgb 11.2(L) 13.0 - 17.5 g/dL [facility] Hct 34.9(L) 38.9 - 50.3 % [facility] Plt 152 150 - 400 K/cumm [facility] MPV 11.0 9.1 - 12.3 fL [facility] RBC 3.86(L) 4.30 - 5.80 M/cumm [facility] MCV 90.4 81.3 - 96.4 fL [facility] MCH 29.0 27.1 - 33.3 pg [facility] MCHC 32.1(L) 32.3 - 35.7 g/dL [facility] RDW CV 13.5 11.1 - 14.9 % [facility] RDW SD 44.0 35.7 - 48.1 fL [facility] NRBC abs 0.00 0.00 - 0.01 K/cumm [facility] Blood 03/20/2024 3:17 AM MUSIC ASSISTANT 03/20/2024 4:06 AM MUSIC ASSISTANT us Shane Alfredo MD LAB BLOOD ORDERABLES Fi nal Result Performing Organization Address City/[facility]/ZIP Co de Phone Number [facility] Department [place] [address] * Creatine kinase (CK), total (03/20/2024 3:17 AM MUSIC ASSISTANT) [facility] CK 54 40 - 300 Units/L Blood 03/20/2024 3:17 AM MUSIC ASSISTANT 03/20/2024 4:06 AM MUSIC ASSISTANT us Armando Dodson NP LAB BLOOD ORDERABLES Final Result Performing Organization Address [facility] Co de Phone Number [facility] Department [place] [address] * (ABNORMAL) Basic metabolic panel (03/20/2024 3:17 AM MUSIC ASSISTANT) [facility] Sodium 138 135 - 145 mmol/L Potassium, pl 5.4(H) 3.3 - 4.9 mmol/L [facility] Chloride 101 97 - 110 mmol/L [facility] CO2 26 22 - 32 mmol/L [facility] Anion gap 11 2 - 15 mmol/L [facility] BUN 22 6 - 25 mg/dL [facility] Creatinine 1.21 0.80 - 1.30 mg/dL [facility] Glucose 96 70 - 199 mg/dL [facility] Comment: Interpretive Data Fasting glucose >/= 126 mg/dl is diagnostic for diabetes. ?? Fasting is defined as no caloric intake for at least 8 hours. Fasting glucose between 100 mg/dl to 125 mg/dl is diagnostic of prediabetes. In a patient with classic symptoms of hyperglycemia or hyperglycemic crisis, a random glucose >/= 200 mg/dl is diagnostic for diabetes. In the absence of unequivocal hyperglycemia, results should be confirmed by repeat testing. The classification and Diagnosis of Diabetes Diabetes Care 2022; 46: S19-S40. Current interpretive data was last revised 2022. Calcium 9.1 8.5 - 10.3 mg/dL [facility] Blood 03/20/2024 3:17 AM MUSIC ASSISTANT 03/20/2024 4:06 AM MUSIC ASSISTANT us Shane Alfredo MD LAB BLOOD ORDERABLES Fi nal Result [facility] Department [place] [address] * (ABNORMAL) eGFR (03/19/2024 3:35 AM MUSIC ASSISTANT) eGFR 59(L) >=60 mL/min/1. 73 m2 Comment: Interpretive Data Reference Interval Normal ?>/= 90 mL/min/1.73m2 Mildly decreased* ? 60 - 89 mL/min/1.73m2 Mildly to moderately decreased ?45 - 59 mL/min/1.73m2 Moderately to severely decreased ??30 - 44 mL/min/1.73m2 Severely decreased ?15 - 29 mL/min/1.73m2 Kidney Failure ?< 15 ??mL/min/1.73m2 *Relative to young adult level Estimated glomerular filtration rate is determined by the 2020 CKD-EPI equation recommended by the National Kidney Foundation (A Unifying Approach to GFR Estimation: Recommendations of the NKF-ASK Task Force on Reassessing the Inclusion of Race in Diagnosing Kidney Disease, JASN 2020). The CKD-EPI equation should not be used for patients with unstable renal function and has not been validated in children and those over 70. Current interpretive data was last reviewed 2021. Blood 03/19/2024 3:35 AM MUSIC ASSISTANT 03/19/2024 5:17 AM MUSIC ASSISTANT us Shane Alfredo MD LAB BLOOD ORDERABLES Fi nal Result [facility] Department [place] [address] * Blood culture Blood (03/19/2024 3:35 AM MUSIC ASSISTANT) Report Final Report: No growth Blood 03/19/2024 3:35 AM MUSIC ASSISTANT 03/19/2024 5:26 AM MUSIC ASSISTANT Narrative [facility] - 03/23/2024 7:00 AM MUSIC ASSISTANT Collection->Peripheral 1. ?Blood cultures are incubated for 4 days on a continuously monitored blood culture system. The first report of a negative culture is issued within 24 hours of receipt of the specimen in the laboratory. 2. ?Positive culture results are reported as soon as they are detected. 3. ?The most important factor for detection of microbes in the setting of bloodstream infection is the volume of blood submitted for culture. Failure to collect an optimal blood volume can result in false negative blood cultures. For pediatric patients, the recommended blood volume to collect is 1 mL of blood per year of patient age (up to 20 mL) per blood culture set. For adult patients, 20 mL of blood, divided equally between aerobic and anaerobic blood culture bottles, is recommended for each blood culture set. 4. ?For blood cultures with Gram-positive cocci, a rapid molecular test for organism identification may be performed using the Devotee Gram-Positive Blood Culture Assay. This assay detects microbial DNA in positive blood culture broth via hybridization of target DNA to capture oligonucleotides on a microarray. This assay has been cleared by the [place] Food and Drug Administration and its performance characteristics have been verified by the [facility]biology Laboratory. 5. ?For questions about this culture, contact the Microbiology Laboratory at [phone]. Interpretive data was last revised on 2019. Shane Alfredo MD LAB MICROBIOLOGY - GENE RAL ORDERABLES Final Result [facility] Department [place] [address] * Blood culture Blood (03/19/2024 3:35 AM MUSIC ASSISTANT) Report Final Report: No growth Blood 03/19/2024 3:35 AM MUSIC ASSISTANT 03/19/2024 5:26 AM MUSIC ASSISTANT Narrative [facility] - 03/23/2024 7:00 AM MUSIC ASSISTANT Collection->Peripheral 1. ?Blood cultures are incubated for 4 days on a continuously monitored blood culture system. The first report of a negative culture is issued within 24 hours of receipt of the specimen in the laboratory. 2. ?Positive culture results are reported as soon as they are detected. 3. ?The most important factor for detection of microbes in the setting of bloodstream infection is the volume of blood submitted for culture. Failure to collect an optimal blood volume can result in false negative blood cultures. For pediatric patients, the recommended blood volume to collect is 1 mL of blood per year of patient age (up to 20 mL) per blood culture set. For adult patients, 20 mL of blood, divided equally between aerobic and anaerobic blood culture bottles, is recommended for each blood culture set. 4. ?For blood cultures with Gram-positive cocci, a rapid molecular test for organism identification may be performed using the Bit9igene Gram-Positive Blood Culture Assay. This assay detects microbial DNA in positive blood culture broth via hybridization of target DNA to capture oligonucleotides on a microarray. This assay has been cleared by the [place] Food and Drug Administration and its performance characteristics have been verified by the [facility]. 5. ?For questions about this culture, contact the Microbiology Laboratory at [phone]. Interpretive data was last revised on 2019. us Shane Alfredo MD LAB MICROBIOLOGY - GENE RAL ORDERABLES Final Result Performing Organization Address City/[facility]/ZIP Co de Phone Number [facility] Department [place] [address] * (ABNORMAL) CBC without differential (03/19/2024 3:35 AM MUSIC ASSISTANT) [facility] WBC 6.7 3.8 - 9.9 K/cumm Hgb 11.9(L) 13.0 - 17.5 g/dL [facility] Hct 36.4(L) 38.9 - 50.3 % [facility] Plt 151 150 - 400 K/cumm [facility] MPV 11.1 9.1 - 12.3 fL [facility] RBC 4.05(L) 4.30 - 5.80 M/cumm [facility] MCV 89.9 81.3 - 96.4 fL [facility] MCH 29.4 27.1 - 33.3 pg [facility] MCHC 32.7 32.3 - 35.7 g/dL [facility] RDW CV 13.4 11.1 - 14.9 % [facility] RDW SD 44.5 35.7 - 48.1 fL [facility] NRBC abs 0.00 0.00 - 0.01 K/cumm [facility] Blood 03/19/2024 3:35 AM MUSIC ASSISTANT 03/19/2024 5:18 AM MUSIC ASSISTANT us Shane Alfredo MD LAB BLOOD ORDERABLES Fi nal Result Performing Organization Address City/[facility]/ZIP Co de Phone Number [facility] Department [place] [address] * Basic metabolic panel (03/19/2024 3:35 AM MUSIC ASSISTANT) [facility] Sodium 136 135 - 145 mmol/L Potassium, pl 4.7 3.3 - 4.9 mmol/L [facility] Chloride 102 97 - 110 mmol/L [facility] CO2 24 22 - 32 mmol/L [facility] Anion gap 10 2 - 15 mmol/L [facility] BUN 24 6 - 25 mg/dL [facility] Creatinine 1.21 0.80 - 1.30 mg/dL [facility] Glucose 97 70 - 199 mg/dL [facility] Comment: Interpretive Data Fasting glucose >/= 126 mg/dl is diagnostic for diabetes. ?? Fasting is defined as no caloric intake for at least 8 hours. Fasting glucose between 100 mg/dl to 125 mg/dl is diagnostic of prediabetes. In a patient with classic symptoms of hyperglycemia or hyperglycemic crisis, a random glucose >/= 200 mg/dl is diagnostic for diabetes. In the absence of unequivocal hyperglycemia, results should be confirmed by repeat testing. The classification and Diagnosis of Diabetes Diabetes Care 2021; 46: S19-S40. Current interpretive data was last revised 2022. Calcium 9.3 8.5 - 10.3 mg/dL [facility] Blood 03/19/2024 3:35 AM MUSIC ASSISTANT 03/19/2024 5:17 AM MUSIC ASSISTANT us Shane Alfredo MD LAB BLOOD ORDERABLES Fi nal Result [facility] Department [place] [address] * Potassium, whole blood (03/18/2024 1:36 PM CDT) Pathologist [facility] Potassium, bld 4.8 3.3 - 4.9 mmol/L Blood 03/18/2024 1:36 PM CDT 03/18/2024 1:50 PM CDT us Armando Dodson DEMO COORDINATOR LAB BLOOD ORDERABLES Final Result [facility] Department [place] [address] * (ABNORMAL) eGFR (03/18/2024 1:36 PM CDT) Pathologist [facility] eGFR 57(L) >=60 mL/min/1. 73 m2 Comment: Interpretive Data Reference Interval Normal ?>/= 90 mL/min/1.73m2 Mildly decreased* ? 60 - 89 mL/min/1.73m2 Mildly to moderately decreased ?45 - 59 mL/min/1.73m2 Moderately to severely decreased ??30 - 44 mL/min/1.73m2 Severely decreased ?15 - 29 mL/min/1.73m2 Kidney Failure ?< 15 ??mL/min/1.73m2 *Relative to young adult level Estimated glomerular filtration rate is determined by the 2020 CKD-EPI equation recommended by the National Kidney Foundation (A Unifying Approach to GFR Estimation: Recommendations of the NKF-ASK Task Force on Reassessing the Inclusion of Race in Diagnosing Kidney Disease, JASN 2020). The CKD-EPI equation should not be used for patients with unstable renal function and has not been validated in children and those over 70. Current interpretive data was last reviewed 2021. Blood 03/18/2024 1:36 PM CDT 03/18/2024 1:59 PM CDT Armando Dodson DEMO COORDINATOR LAB BLOOD ORDERABLES Final Result [facility] [place] [address] * (ABNORMAL) Basic metabolic panel (03/18/2024 1:36 PM CDT) Sodium 134(L) 135 - 145 mmol/L Potassium, pl 4.9 3.3 - 4.9 mmol/L [facility] Chloride 100 97 - 110 mmol/L [facility] CO2 23 22 - 32 mmol/L [facility] Anion gap 11 2 - 15 mmol/L [facility] BUN 21 6 - 25 mg/dL [facility] Creatinine 1.24 0.80 - 1.30 mg/dL [facility] Glucose 135 70 - 199 mg/dL [facility] Comment: Interpretive Data Fasting glucose >/= 126 mg/dl is diagnostic for diabetes. ?? Fasting is defined as no caloric intake for at least 8 hours. Fasting glucose between 100 mg/dl to 125 mg/dl is diagnostic of prediabetes. In a patient with classic symptoms of hyperglycemia or hyperglycemic crisis, a random glucose >/= 200 mg/dl is diagnostic for diabetes. In the absence of unequivocal hyperglycemia, results should be confirmed by repeat testing. The classification and Diagnosis of Diabetes Diabetes Care 202; 46: S19-S40. Current interpretive data was last revised 2022. Calcium 9.1 8.5 - 10.3 mg/dL [facility] Blood 03/18/2024 1:36 PM CDT 03/18/2024 1:59 PM CDT Armando Dodson DEMO COORDINATOR LAB BLOOD ORDERABLES Final Result [facility] Department [place] [address] * (ABNORMAL) eGFR (03/18/2024 3:55 AM CDT) [facility] eGFR 57(L) >=60 mL/min/1. 73 m2 Comment: Interpretive Data Reference Interval Normal ?>/= 90 mL/min/1.73m2 Mildly decreased* ? 60 - 89 mL/min/1.73m2 Mildly to moderately decreased ?45 - 59 mL/min/1.73m2 Moderately to severely decreased ??30 - 44 mL/min/1.73m2 Severely decreased ?15 - 29 mL/min/1.73m2 Kidney Failure ?< 15 ??mL/min/1.73m2 *Relative to young adult level Estimated glomerular filtration rate is determined by the 2020 CKD-EPI equation recommended by the National Kidney Foundation (A Unifying Approach to GFR Estimation: Recommendations of the NKF-ASK Task Force on Reassessing the Inclusion of Race in Diagnosing Kidney Disease, JASN 2020). The CKD-EPI equation should not be used for patients with unstable renal function and has not been validated in children and those over 70. Current interpretive data was last reviewed 2021. Blood 03/18/2024 3:55 AM CDT 03/18/2024 6:46 AM CDT Shane Alfredo MD LAB BLOOD ORDERABLES Fi nal Result [facility] Department [place] [address] * Blood culture Blood (03/18/2024 3:55 AM CDT) Report Final Report: No growth Blood 03/18/2024 3:55 AM CDT 03/18/2024 6:53 AM CDT Narrative [facility] - 03/22/2024 7:00 AM MUSIC ASSISTANT Collection->Peripheral 1. ?Blood cultures are incubated for 4 days on a continuously monitored blood culture system. The first report of a negative culture is issued within 24 hours of receipt of the specimen in the laboratory. 2. ?Positive culture results are reported as soon as they are detected. 3. ?The most important factor for detection of microbes in the setting of bloodstream infection is the volume of blood submitted for culture. Failure to collect an optimal blood volume can result in false negative blood cultures. For pediatric patients, the recommended blood volume to collect is 1 mL of blood per year of patient age (up to 20 mL) per blood culture set. For adult patients, 20 mL of blood, divided equally between aerobic and anaerobic blood culture bottles, is recommended for each blood culture set. 4. ?For blood cultures with Gram-positive cocci, a rapid molecular test for organism identification may be performed using the Verigene Gram-Positive Blood Culture Assay. This assay detects microbial DNA in positive blood culture broth via hybridization of target DNA to capture oligonucleotides on a microarray. This assay has been cleared by the [place] Food and Drug Administration and its performance characteristics have been verified by the [facility]. 5. ?For questions about this culture, contact the Microbiology Laboratory at [phone]. Interpretive data was last revised on 2019. us Shane Alfredo MD LAB MICROBIOLOGY - GENE RAL ORDERABLES Final Result [facility] Department [place] [address] * Blood culture Blood (03/18/2024 3:55 AM CDT) Report Final Report: No growth Blood 03/18/2024 3:55 AM CDT 03/18/2024 6:53 AM CDT Narrative [facility] - 03/22/2024 7:00 AM MUSIC ASSISTANT Collection->Peripheral 1. ?Blood cultures are incubated for 4 days on a continuously monitored blood culture system. The first report of a negative culture is issued within 24 hours of receipt of the specimen in the laboratory. 2. ?Positive culture results are reported as soon as they are detected. 3. ?The most important factor for detection of microbes in the setting of bloodstream infection is the volume of blood submitted for culture. Failure to collect an optimal blood volume can result in false negative blood cultures. For pediatric patients, the recommended blood volume to collect is 1 mL of blood per year of patient age (up to 20 mL) per blood culture set. For adult patients, 20 mL of blood, divided equally between aerobic and anaerobic blood culture bottles, is recommended for each blood culture set. 4. ?For blood cultures with Gram-positive cocci, a rapid molecular test for organism identification may be performed using the Verigene Gram-Positive Blood Culture Assay. This assay detects microbial DNA in positive blood culture broth via hybridization of target DNA to capture oligonucleotides on a microarray. This assay has been cleared by the [place] Food and Drug Administration and its performance characteristics have been verified by the [facility]. 5. ?For questions about this culture, contact the Microbiology Laboratory at [phone]. Interpretive data was last revised on 2019. Shane Alfredo MD LAB MICROBIOLOGY - GENE RAL ORDERABLES Final Result Performing Organization Address City/[facility]/ZIP Co de Phone Number [facility] Department [place] [address] * (ABNORMAL) CBC without differential (03/18/2024 3:55 AM CDT) [facility] WBC 6.4 3.8 - 9.9 K/cumm Hgb 12.2(L) 13.0 - 17.5 g/dL [facility] Hct 37.4(L) 38.9 - 50.3 % [facility] Plt 141(L) 150 - 400 K/cumm [facility] MPV 11.2 9.1 - 12.3 fL [facility] RBC 4.15(L) 4.30 - 5.80 M/cumm [facility] MCV 90.1 81.3 - 96.4 fL [facility] MCH 29.4 27.1 - 33.3 pg [facility] MCHC 32.6 32.3 - 35.7 g/dL [facility] RDW CV 13.4 11.1 - 14.9 % [facility] RDW SD 44.3 35.7 - 48.1 fL [facility] NRBC abs 0.00 0.00 - 0.01 K/cumm [facility] Blood 03/18/2024 3:55 AM CDT 03/18/2024 6:46 AM CDT Shane Alfredo MD LAB BLOOD ORDERABLES Fi nal Result [facility] Department [place] [address] * (ABNORMAL) Basic metabolic panel (03/18/2024 3:55 AM CDT) Sodium 135 135 - 145 mmol/L Potassium, pl 5.3(H) 3.3 - 4.9 mmol/L [facility] Chloride 101 97 - 110 mmol/L [facility] CO2 27 22 - 32 mmol/L [facility] Anion gap 7 2 - 15 mmol/L [facility] BUN 19 6 - 25 mg/dL [facility] Creatinine 1.25 0.80 - 1.30 mg/dL [facility] Glucose 92 70 - 199 mg/dL [facility] Comment: Interpretive Data Fasting glucose >/= 126 mg/dl is diagnostic for diabetes. ?? Fasting is defined as no caloric intake for at least 8 hours. Fasting glucose between 100 mg/dl to 125 mg/dl is diagnostic of prediabetes. In a patient with classic symptoms of hyperglycemia or hyperglycemic crisis, a random glucose >/= 200 mg/dl is diagnostic for diabetes. In the absence of unequivocal hyperglycemia, results should be confirmed by repeat testing. The classification and Diagnosis of Diabetes Diabetes Care 2021; 46: S19-S40. Current interpretive data was last revised 2022. Calcium 9.3 8.5 - 10.3 mg/dL [facility] Blood 03/18/2024 3:55 AM CDT 03/18/2024 6:46 AM CDT us Shane Alfredo MD LAB BLOOD ORDERABLES Fi nal Result [facility] [place] [address] * TRANSESOPHAGEAL ECHO (JOSEPH) W DOPPLER/CF WO CONTRAST (03/17/2024 2:01 PM CDT) Anatomical Region Laterality Modality Echocardiography 03/17/2024 11:1 5 AM CDT Narrative 03/17/2024 4:22 PM CDT Patient name: Kelsie Vo Date of test: 03/17/2024 Date of : 1940 (M) Hospital #: 0 ?Location: [facility] Cardiac Diagnostic Lab Interpreted by: John Navarro MD Safety Spec: Cindy Lucio MD RN: Reason for Test: bacteremia Study quality: Technically good Referring Physician: ALBIN STOCKTON MD Contrast Agent: Aortic valve: tricuspid, and is Normal, and the motion Normal Aortic root: Normal ? Aortic Arch: Normal Ascending Aorta: Normal ? Descending Aorta: Normal Pulmonic valve: Normal ? Pulmonary Artery: Normal Pulmonary vein: Normal Mitral valve: Normal, motion Normal, and annulus is Normal Tricuspid valve: Normal, Pulmonic valve: Normal Valvular vegetation: vegetation on pacemaker lead, Mass/Thrombinone seen LA Appendage: Normal Wall Motion Scoring (1=Normal 2=Hypo 3=Akinetic 4=Dyskin. 5=Aneurysm 0=Not visualized) Short [place]-Gastric:=1 S=1 I=1 P=1 L=1 A=1 Long [place]-Gastric:BP=1 BA=1 MP=1 MA=1 AP=1 AA=1 Chamber Dimensions: RA: Normal LA: Normal RV: Normal LV: Normal LV function: Mild global left ventricular dysfunction. RV function: Normal Pericardium: No pericardial effusion seen Diastolic function: not assessed Atrial Septum: Normal Wall Thickness: RV: Normal LV: Normal Sedation/Tolerance: ??Sedation: MAC anesthesia ??[employer] Admin: ?Propofol 172mg ??Tolerance: Patient tolerated procedure without difficulty. Doppler/CF results Aortic Value - Regurgitation: No AR seen Mitral Valve - Regurgitation: Mild MR Aortic Value - Stenosis: no Mitral Valve - Stenosis: ??no MS Aortic Value - Area: Mitral Value - Area: Aortic Value - Pressure Gradient: Mitral Value - Pressure Gradient: Aortic Value - Pressure Gradient - Peak: Tricuspid: mild TV regurgitation PA Pressure: MV ERO: ??cm2 Regurg. Volume: ??mL/beat Regurg. Fraction: 0 % Complication: None Doppler/CF comments No AR seen, Mild MR, no , ??no MS, mild TV regurgitation, normal PV. ? JOSEPH Summary ? John Navarro MD performed the JOSEPH probe placement. Principal Findings: There is a single PM wire well seen in SVC, RA and RV. A long 1.8 cm linear multi-branching mobile mass is seen with a large basis attached to PM wire in the RA. The mass likely represents a vegetation in appropriate clinical context. Differential diagnosis is with fibrin strand. However, fibrin strands are usually less complex than the mass seen here. No vegetation on tricuspid, mitral and aortic valves (BioAVR?). Normal LV and RV size and function. No ASD. No LELO thrombus. Intimal thickening, no atheroma plaque. 3D Imaging: This study was supervised and interpreted by John Navarro MD Confirmed on ??03/17/2024 - 16:22:47 by John Navarro MD ?? Brusher Hand: Cindy Lucio By signing this report, the attending senior bioinformatics scientist certifies that he or she has personally supervised and interpreted the echocardiogram and has reviewed and or edited and agrees with the written comments contained within the report. Procedure John Barry MD - 03/17/2024 Patient name: Kelsie Vo Date of test: 03/17/2024 Date of : 1940 () [facility] #: 0 Location: [facility] Cardiac Diagnostic Lab Interpreted by: John Navarro MD Safety Spec: Cindy Lucio MD RN: Reason for Test: bacteremia Study quality: Technically good Referring Physician: ALBIN STOCKTON MD Contrast Agent: Aortic valve: tricuspid, and is Normal, and the motion Normal Aortic root: Normal Aortic Arch: Normal Ascending Aorta: Normal Descending Aorta: Normal Pulmonic valve: Normal Pulmonary Artery: Normal Pulmonary vein: Normal Mitral valve: Normal, motion Normal, and annulus is Normal Tricuspid valve: Normal, Pulmonic valve: Normal Valvular vegetation: vegetation on pacemaker lead, Mass/Thrombinone seen LA Appendage: Normal Wall Motion Scoring (1=Normal 2=Hypo 3=Akinetic 4=Dyskin. 5=Aneurysm 0=Not visualized) Short [place]-Gastric:=1 S=1 I=1 P=1 L=1 A=1 Long [place]-Gastric:BP=1 BA=1 MP=1 MA=1 AP=1 AA=1 Chamber Dimensions: RA: Normal LA: Normal RV: Normal LV: Normal LV function: Mild global left ventricular dysfunction. RV function: Normal Pericardium: No pericardial effusion seen Diastolic function: not assessed Atrial Septum: Normal Wall Thickness: RV: Normal LV: Normal Sedation/Tolerance: Sedation: MAC anesthesia Meds Admin: Propofol 172mg Tolerance: Patient tolerated procedure without difficulty. Doppler/CF results Aortic Value - Regurgitation: No AR seen Mitral Valve - Regurgitation: Mild MR Aortic Value - Stenosis: no Mitral Valve - Stenosis: no MS Aortic Value - Area: Mitral Value - Area: Aortic Value - Pressure Gradient: Mitral Value - Pressure Gradient: Aortic Value - Pressure Gradient - Peak: Tricuspid: mild TV regurgitation PA Pressure: MV ERO: cm2 Regurg. Volume: mL/beat Regurg. Fraction: 0 % Complication: None Doppler/CF comments No AR seen, Mild MR, no , no MS, mild TV regurgitation, normal PV. JOSEPH Summary John Navarro MD performed the JOSEPH probe placement. Principal Findings: There is a single PM wire well seen in SVC, RA and RV. A long 1.8 cm linear multi-branching mobile mass is seen with a large basis attached to PM wire in the RA. The mass likely represents a vegetation in appropriate clinical context. Differential diagnosis is with fibrin strand. However, fibrin strands are usually less complex than the mass seen here. No vegetation on tricuspid, mitral and aortic valves (BioAVR?). Normal LV and RV size and function. No ASD. No LELO thrombus. Intimal thickening, no atheroma plaque. 3D Imaging: This study was supervised and interpreted by John Navarro MD Confirmed on 03/17/2024 - 16:22:47 by John Navarro MD Brusher Hand: Cindy Lucio By signing this report, the attending senior bioinformatics scientist certifies that he or she has personally supervised and interpreted the echocardiogram and has reviewed and or edited and agrees with the written comments contained within the report. us Albin Stockton DEMO COORDINATOR CV ECHO PROCEDURES Fi nal Result * eGFR (03/17/2024 3:48 AM CDT) Pathologist [facility] eGFR 63 >=60 mL/min/1. 73 m2 Comment: Interpretive Data Reference Interval Normal ?>/= 90 mL/min/1.73m2 Mildly decreased* ? 60 - 89 mL/min/1.73m2 Mildly to moderately decreased ?45 - 59 mL/min/1.73m2 Moderately to severely decreased ??30 - 44 mL/min/1.73m2 Severely decreased ?15 - 29 mL/min/1.73m2 Kidney Failure ?< 15 ??mL/min/1.73m2 *Relative to young adult level Estimated glomerular filtration rate is determined by the 2020 CKD-EPI equation recommended by the National Kidney Foundation (A Unifying Approach to GFR Estimation: Recommendations of the NKF-ASK Task Force on Reassessing the Inclusion of Race in Diagnosing Kidney Disease, JASN 2021). The CKD-EPI equation should not be used for patients with unstable renal function and has not been validated in children and those over 70. Current interpretive data was last reviewed 2021. Blood 03/17/2024 3:48 AM CDT 03/17/2024 5:31 AM CDT us Shane Alfredo MD LAB BLOOD ORDERABLES Fi nal Result Performing Organization Address [facility]/ZIP Co de Phone Number JUAREZ CHAUDHARY [facility] Department [place] [address] * Blood culture Blood (03/17/2024 3:48 AM CDT) Report Final Report: No growth Blood 03/17/2024 3:48 AM CDT 03/17/2024 6:06 AM CDT Narrative [facility] - 03/21/2024 7:00 AM MUSIC ASSISTANT Collection->Peripheral 1. ?Blood cultures are incubated for 4 days on a continuously monitored blood culture system. The first report of a negative culture is issued within 24 hours of receipt of the specimen in the laboratory. 2. ?Positive culture results are reported as soon as they are detected. 3. ?The most important factor for detection of microbes in the setting of bloodstream infection is the volume of blood submitted for culture. Failure to collect an optimal blood volume can result in false negative blood cultures. For pediatric patients, the recommended blood volume to collect is 1 mL of blood per year of patient age (up to 20 mL) per blood culture set. For adult patients, 20 mL of blood, divided equally between aerobic and anaerobic blood culture bottles, is recommended for each blood culture set. 4. ?For blood cultures with Gram-positive cocci, a rapid molecular test for organism identification may be performed using the Bit9igene Gram-Positive Blood Culture Assay. This assay detects microbial DNA in positive blood culture broth via hybridization of target DNA to capture oligonucleotides on a microarray. This assay has been cleared by the [place] Food and Drug Administration and its performance characteristics have been verified by the [facility]biology Laboratory. 5. ?For questions about this culture, contact the Microbiology Laboratory at [phone]. Interpretive data was last revised on 2019. us Shane Alfredo MD LAB MICROBIOLOGY - GENE RAL ORDERABLES Final Result Performing Organization Address City/[facility]/ZIP Co de Phone Number JUAREZ CHARLTON [facility] Department [place] [address] * Blood culture Blood (03/17/2024 3:48 AM CDT) Report Final Report: No growth Blood 03/17/2024 3:48 AM CDT 03/17/2024 6:06 AM CDT Narrative JUAREZ [facility] - 03/21/2024 7:00 AM MUSIC ASSISTANT Collection->Peripheral 1. ?Blood cultures are incubated for 4 days on a continuously monitored blood culture system. The first report of a negative culture is issued within 24 hours of receipt of the specimen in the laboratory. 2. ?Positive culture results are reported as soon as they are detected. 3. ?The most important factor for detection of microbes in the setting of bloodstream infection is the volume of blood submitted for culture. Failure to collect an optimal blood volume can result in false negative blood cultures. For pediatric patients, the recommended blood volume to collect is 1 mL of blood per year of patient age (up to 20 mL) per blood culture set. For adult patients, 20 mL of blood, divided equally between aerobic and anaerobic blood culture bottles, is recommended for each blood culture set. 4. ?For blood cultures with Gram-positive cocci, a rapid molecular test for organism identification may be performed using the Bit9igene Gram-Positive Blood Culture Assay. This assay detects microbial DNA in positive blood culture broth via hybridization of target DNA to capture oligonucleotides on a microarray. This assay has been cleared by the [place] Food and Drug Administration and its performance characteristics have been verified by the [facility]. 5. ?For questions about this culture, contact the Microbiology Laboratory at [phone]. Interpretive data was last revised on 2019. us Shane Alfredo MD LAB MICROBIOLOGY - GENE RAL ORDERABLES Final Result [facility] CHARLTON [facility] Department [place] [address] * (ABNORMAL) CBC without differential (03/17/2024 3:48 AM CDT) [facility] WBC 6.0 3.8 - 9.9 K/cumm Hgb 13.2 13.0 - 17.5 g/dL [facility] Hct 40.8 38.9 - 50.3 % [facility] Plt 124(L) 150 - 400 K/cumm [facility] MPV 11.4 9.1 - 12.3 fL [facility] RBC 4.47 4.30 - 5.80 M/cumm [facility] MCV 91.3 81.3 - 96.4 fL [facility] MCH 29.5 27.1 - 33.3 pg [facility] MCHC 32.4 32.3 - 35.7 g/dL [facility] RDW CV 13.3 11.1 - 14.9 % [facility] RDW SD 44.5 35.7 - 48.1 fL [facility] NRBC abs 0.00 0.00 - 0.01 K/cumm [facility] Blood 03/17/2024 3:48 AM CDT 03/17/2024 5:31 AM CDT us Shane Alfredo MD LAB BLOOD ORDERABLES nal Result [facility] Department [place] [address] * (ABNORMAL) Basic metabolic panel (03/17/2024 3:48 AM CDT) [facility] Sodium 134(L) 135 - 145 mmol/L Potassium, pl 5.0(H) 3.3 - 4.9 mmol/L [facility] Chloride 100 97 - 110 mmol/L [facility] CO2 26 22 - 32 mmol/L [facility] Anion gap 8 2 - 15 mmol/L [facility] BUN 19 6 - 25 mg/dL [facility] Creatinine 1.14 0.80 - 1.30 mg/dL [facility] Glucose 91 70 - 199 mg/dL [facility] Comment: Interpretive Data Fasting glucose >/= 126 mg/dl is diagnostic for diabetes. ?? Fasting is defined as no caloric intake for at least 8 hours. Fasting glucose between 100 mg/dl to 125 mg/dl is diagnostic of prediabetes. In a patient with classic symptoms of hyperglycemia or hyperglycemic crisis, a random glucose >/= 200 mg/dl is diagnostic for diabetes. In the absence of unequivocal hyperglycemia, results should be confirmed by repeat testing. The classification and Diagnosis of Diabetes Diabetes Care 2021; 46: S19-S40. Current interpretive data was last revised 2022. Calcium 9.5 8.5 - 10.3 mg/dL [facility] Blood 03/17/2024 3:48 AM CDT 03/17/2024 5:31 AM CDT us hSane Alfredo MD LAB BLOOD ORDERABLES Fi nal Result [facility] Department [place] [address] * eGFR (03/16/2024 3:16 AM CDT) eGFR 67 >=60 mL/min/1. 73 m2 Comment: Interpretive Data Reference Interval Normal ?>/= 90 mL/min/1.73m2 Mildly decreased* ? 60 - 89 mL/min/1.73m2 Mildly to moderately decreased ?45 - 59 mL/min/1.73m2 Moderately to severely decreased ??30 - 44 mL/min/1.73m2 Severely decreased ?15 - 29 mL/min/1.73m2 Kidney Failure ?< 15 ??mL/min/1.73m2 *Relative to young adult level Estimated glomerular filtration rate is determined by the 2020 CKD-EPI equation recommended by the National Kidney Foundation (A Unifying Approach to GFR Estimation: Recommendations of the NKF-ASK Task Force on Reassessing the Inclusion of Race in Diagnosing Kidney Disease, JASN 2020). The CKD-EPI equation should not be used for patients with unstable renal function and has not been validated in children and those over 70. Current interpretive data was last reviewed 2021. Blood 03/16/2024 3:16 AM CDT 03/16/2024 5:35 AM CDT us Shane Alfredo MD LAB BLOOD ORDERABLES Fi nal Result [facility] Department [place] [address] * (ABNORMAL) Blood culture Blood (03/16/2024 3:16 AM CDT) Direct Specimen Exam Stain: Gram Positive Cocci in clusters Time to culture positivity (anaerobic media): 13.6 hours Report Final Report: Staphylococcus aureus For susceptibility results, refer to accession number [id number] on the blood culture from 03/14/24 (.) [facility] Organism STAPHYLOCOCCUS AUREUS [facility] Blood 03/16/2024 3:16 AM CDT 03/16/2024 6:18 AM CDT Narrative [facility] - 03/21/2024 1:19 PM MUSIC ASSISTANT Collection->Peripheral 1. ?Blood cultures are incubated for 4 days on a continuously monitored blood culture system. The first report of a negative culture is issued within 24 hours of receipt of the specimen in the laboratory. 2. ?Positive culture results are reported as soon as they are detected. 3. ?The most important factor for detection of microbes in the setting of bloodstream infection is the volume of blood submitted for culture. Failure to collect an optimal blood volume can result in false negative blood cultures. For pediatric patients, the recommended blood volume to collect is 1 mL of blood per year of patient age (up to 20 mL) per blood culture set. For adult patients, 20 mL of blood, divided equally between aerobic and anaerobic blood culture bottles, is recommended for each blood culture set. 4. ?For blood cultures with Gram-positive cocci, a rapid molecular test for organism identification may be performed using the Bit9igene Gram-Positive Blood Culture Assay. This assay detects microbial DNA in positive blood culture broth via hybridization of target DNA to capture oligonucleotides on a microarray. This assay has been cleared by the [place] Food and Drug Administration and its performance characteristics have been verified by the [facility]. 5. ?For questions about this culture, contact the Microbiology Laboratory at [phone]. Interpretive data was last revised on 2019. us Shane Alfredo MD LAB MICROBIOLOGY - GENE RAL ORDERABLES Final Result [facility] [place] [address] * (ABNORMAL) Blood culture Blood (03/16/2024 3:16 AM CDT) Direct Specimen Exam Stain: Gram Positive Cocci in clusters Time to culture positivity (anaerobic media): 13.2 hours Time to culture positivity (aerobic media): 15.3 hours Report Final Report: Staphylococcus aureus For susceptibility results, refer to accession number [id number] on the blood culture from 03/14/24 (.) [facility] Organism STAPHYLOCOCCUS AUREUS [facility] Blood 03/16/2024 3:16 AM CDT 03/16/2024 6:18 AM CDT Narrative [facility] - 03/19/2024 1:03 PM MUSIC ASSISTANT Collection->Peripheral 1. ?Blood cultures are incubated for 4 days on a continuously monitored blood culture system. The first report of a negative culture is issued within 24 hours of receipt of the specimen in the laboratory. 2. ?Positive culture results are reported as soon as they are detected. 3. ?The most important factor for detection of microbes in the setting of bloodstream infection is the volume of blood submitted for culture. Failure to collect an optimal blood volume can result in false negative blood cultures. For pediatric patients, the recommended blood volume to collect is 1 mL of blood per year of patient age (up to 20 mL) per blood culture set. For adult patients, 20 mL of blood, divided equally between aerobic and anaerobic blood culture bottles, is recommended for each blood culture set. 4. ?For blood cultures with Gram-positive cocci, a rapid molecular test for organism identification may be performed using the Bit9igene Gram-Positive Blood Culture Assay. This assay detects microbial DNA in positive blood culture broth via hybridization of target DNA to capture oligonucleotides on a microarray. This assay has been cleared by the [place] Food and Drug Administration and its performance characteristics have been verified by the [facility]. 5. ?For questions about this culture, contact the Microbiology Laboratory at [phone]. Interpretive data was last revised on 2019. us Shane Alfredo MD LAB MICROBIOLOGY - GENE RAL ORDERABLES Final Result [facility] Department [place] [address] * (ABNORMAL) CBC without differential (03/16/2024 3:16 AM CDT) Pathologist [facility] WBC 6.4 3.8 - 9.9 K/cumm Hgb 11.4(L) 13.0 - 17.5 g/dL [facility] Hct 35.1(L) 38.9 - 50.3 % [facility] Plt 161 150 - 400 K/cumm [facility] MPV 11.3 9.1 - 12.3 fL [facility] RBC 3.86(L) 4.30 - 5.80 M/cumm [facility] MCV 90.9 81.3 - 96.4 fL [facility] MCH 29.5 27.1 - 33.3 pg [facility] MCHC 32.5 32.3 - 35.7 g/dL [facility] RDW CV 13.4 11.1 - 14.9 % [facility] RDW SD 44.3 35.7 - 48.1 fL [facility] NRBC abs 0.00 0.00 - 0.01 K/cumm [facility] Blood 03/16/2024 3:16 AM CDT 03/16/2024 6:00 AM CDT us Shnae Alfredo MD LAB BLOOD ORDERABLES Fi nal Result [facility] [place], [place] [id number] * Creatine kinase (CK), total (03/16/2024 3:16 AM CDT) [facility] CK 40 40 - 300 Units/L Blood 03/16/2024 3:16 AM CDT 03/16/2024 5:29 AM CDT us Armando Dodson DEMO COORDINATOR LAB BLOOD ORDERABLES Final Result Performing Organization Address [facility] Co de Phone Number [facility] [place] [address] * (ABNORMAL) Hepatic function panel (03/16/2024 3:16 AM CDT) [facility] Bilirubin, total 0.4 0.1 - 1.2 mg/dL Bilirubin, direct <0.2 0.1 - 0.3 mg/dL [facility] Protein, pl 6.6 6.5 - 8.5 g/dL [facility] Albumin 3.3(L) 3.5 - 5.0 g/dL [facility] Alk phos 72 40 - 130 Units/L [facility] ALT 16 7 - 55 Units/L [facility] AST 25 10 - 50 Units/L [facility] Blood 03/16/2024 3:16 AM CDT 03/16/2024 5:29 AM CDT us Shane Alfredo MD LAB BLOOD ORDERABLES Fi nal Result Performing Organization Address City/[facility]/ZIP Co de Phone Number [facility] [place] [address] * (ABNORMAL) Basic metabolic panel (03/16/2024 3:16 AM CDT) [facility] Sodium 137 135 - 145 mmol/L Potassium, pl 5.0(H) 3.3 - 4.9 mmol/L [facility] Chloride 103 97 - 110 mmol/L [facility] CO2 26 22 - 32 mmol/L [facility] Anion gap 8 2 - 15 mmol/L [facility] BUN 18 6 - 25 mg/dL [facility] Creatinine 1.09 0.80 - 1.30 mg/dL [facility] Glucose 88 70 - 199 mg/dL [facility] Comment: Interpretive Data Fasting glucose >/= 126 mg/dl is diagnostic for diabetes. ?? Fasting is defined as no caloric intake for at least 8 hours. Fasting glucose between 100 mg/dl to 125 mg/dl is diagnostic of prediabetes. In a patient with classic symptoms of hyperglycemia or hyperglycemic crisis, a random glucose >/= 200 mg/dl is diagnostic for diabetes. In the absence of unequivocal hyperglycemia, results should be confirmed by repeat testing. The classification and Diagnosis of Diabetes Diabetes Care 2021; 46: S19-S40. Current interpretive data was last revised 2022. Calcium 9.1 8.5 - 10.3 mg/dL [facility] Blood 03/16/2024 3:16 AM CDT 03/16/2024 5:29 AM CDT us Shane Alfredo MD LAB BLOOD ORDERABLES Fi nal Result [facility] [place] [address] * XR Orthopantogram Panorex (03/15/2024 4:44 PM CDT) Anatomical Region Laterality Modality Head and Neck N/A Panoramic X-Ray 03/15/2024 5:04 PM CDT Impressions 03/15/2024 5:07 PM CDT Dental caries of the right mandibular canine without periapical lucencies. Dictated by: Sharla Rueda M.D. The radiology attending physician has personally reviewed this study, and had reviewed and/or edited this written report and agrees with it. Electronically signed by: Zaheer Perry D.O. Narrative 03/15/2024 5:07 PM CDT EXAMINATION: XR ORTHOPANTOGRAM/PANOREX HISTORY: Bacteremia. FINDINGS: 2 orthopantograms fiery for review and no prior imaging is available for comparison. Multifocal dental extraction. ??Multifocal dental sikh. ??No periapical lucencies. ??Dental caries in the right mandibular canine. Procedure Note Zaheer Perry, DO - 03/15/2024 EXAMINATION: XR ORTHOPANTOGRAM/PANOREX HISTORY: Bacteremia. FINDINGS: 2 orthopantograms fiery for review and no prior imaging is available for comparison. Multifocal dental extraction. Multifocal dental sikh. No periapical lucencies. Dental caries in the right mandibular canine. IMPRESSION: Dental caries of the right mandibular canine without periapical lucencies. Dictated by: Sharla Rueda M.D. The radiology attending physician has personally reviewed this study, and had reviewed and/or edited this written report and agrees with it. Electronically signed by: Zaheer Perry D.O. Albin Stockton DEMO COORDINATOR IMG XR PROCEDURES Fin al Result * eGFR (03/15/2024 4:28 AM CDT) eGFR 71 >=60 mL/min/1. 73 m2 Comment: Interpretive Data Reference Interval Normal ?>/= 90 mL/min/1.73m2 Mildly decreased* ? 60 - 89 mL/min/1.73m2 Mildly to moderately decreased ?45 - 59 mL/min/1.73m2 Moderately to severely decreased ??30 - 44 mL/min/1.73m2 Severely decreased ?15 - 29 mL/min/1.73m2 Kidney Failure ?< 15 ??mL/min/1.73m2 *Relative to young adult level Estimated glomerular filtration rate is determined by the 2021 CKD-EPI equation recommended by the National Kidney Foundation (A Unifying Approach to GFR Estimation: Recommendations of the NKF-ASK Task Force on Reassessing the Inclusion of Race in Diagnosing Kidney Disease, JASN 202). The CKD-EPI equation should not be used for patients with unstable renal function and has not been validated in children and those over 70. Current interpretive data was last reviewed 2021. Blood 03/15/2024 4:28 AM CDT 03/15/2024 5:18 AM CDT us Shane Alfredo MD LAB BLOOD ORDERABLES Fi nal Result [facility] [place] [address] * Differential, auto (03/15/2024 4:28 AM CDT) Neutrophil abs 3.7 1.5 - 6.5 K/cumm Imm gran abs 0.0 0.0 - 0.1 K/cumm [facility] Lymphocyte abs 1.8 0.8 - 3.3 K/cumm [facility] Monocyte abs 0.8 0.2 - 0.8 K/cumm [facility] Eosinophil abs 0.1 0.0 - 0.5 K/cumm [facility] Basophil abs 0.0 0.0 - 0.1 K/cumm [facility] Neutrophil pct 57.2 % [facility] Comment: Interpretive Data Percent cell count reference ranges are not reported, since discordance with absolute values may lead to misinterpretation of CBC data. Current Interpretive Data was last revised on 2017. Imm gran pct 0.3 % [facility] Comment: Interpretive Data Percent cell count reference ranges are not reported, since discordance with absolute values may lead to misinterpretation of CBC data. Current Interpretive Data was last revised on 2017. Lymphocyte pct 27.2 % [facility] Comment: Interpretive Data Percent cell count reference ranges are not reported, since discordance with absolute values may lead to misinterpretation of CBC data. Current Interpretive Data was last revised on 2017. Monocyte pct 12.6 % [facility] Comment: Interpretive Data Percent cell count reference ranges are not reported, since discordance with absolute values may lead to misinterpretation of CBC data. Current Interpretive Data was last revised on 2017. Eosinophil pct 2.2 % [facility] Comment: Interpretive Data Percent cell count reference ranges are not reported, since discordance with absolute values may lead to misinterpretation of CBC data. Current Interpretive Data was last revised on 2017. Basophil pct 0.5 % [facility] Comment: Interpretive Data Percent cell count reference ranges are not reported, since discordance with absolute values may lead to misinterpretation of CBC data. Current Interpretive Data was last revised on 2017. Blood 03/15/2024 4:28 AM CDT 03/15/2024 5:37 AM CDT us Shane Alfredo MD LAB BLOOD ORDERABLES Fi nal Result [facility] [place] [address] * (ABNORMAL) CBC with auto differential (03/15/2024 4:28 AM CDT) WBC 6.5 3.8 - 9.9 K/cumm Hgb 11.1(L) 13.0 - 17.5 g/dL [facility] Hct 34.2(L) 38.9 - 50.3 % [facility] Plt 165 150 - 400 K/cumm [facility] MPV 10.9 9.1 - 12.3 fL [facility] RBC 3.76(L) 4.30 - 5.80 M/cumm [facility] MCV 91.0 81.3 - 96.4 fL [facility] MCH 29.5 27.1 - 33.3 pg [facility] MCHC 32.5 32.3 - 35.7 g/dL [facility] RDW CV 13.3 11.1 - 14.9 % [facility] RDW SD 43.8 35.7 - 48.1 fL [facility] NRBC abs 0.00 0.00 - 0.01 K/cumm [facility] Blood 03/15/2024 4:28 AM CDT 03/15/2024 5:37 AM CDT us Shane Alfredo MD LAB BLOOD ORDERABLES Fi nal Result [facility] [place] [address] * Blood culture Blood (03/15/2024 4:28 AM CDT) Report Final Report: No growth Blood 03/15/2024 4:28 AM CDT 03/15/2024 5:37 AM CDT Narrative [facility] - 03/19/2024 7:01 AM MUSIC ASSISTANT Collection->Peripheral 1. ?Blood cultures are incubated for 4 days on a continuously monitored blood culture system. The first report of a negative culture is issued within 24 hours of receipt of the specimen in the laboratory. 2. ?Positive culture results are reported as soon as they are detected. 3. ?The most important factor for detection of microbes in the setting of bloodstream infection is the volume of blood submitted for culture. Failure to collect an optimal blood volume can result in false negative blood cultures. For pediatric patients, the recommended blood volume to collect is 1 mL of blood per year of patient age (up to 20 mL) per blood culture set. For adult patients, 20 mL of blood, divided equally between aerobic and anaerobic blood culture bottles, is recommended for each blood culture set. 4. ?For blood cultures with Gram-positive cocci, a rapid molecular test for organism identification may be performed using the Bit9igene Gram-Positive Blood Culture Assay. This assay detects microbial DNA in positive blood culture broth via hybridization of target DNA to capture oligonucleotides on a microarray. This assay has been cleared by the [place] Food and Drug Administration and its performance characteristics have been verified by the [facility]biology [facility]. 5. ?For questions about this culture, contact the Microbiology Laboratory at [phone]. Interpretive data was last revised on 2019. us Shane Alfredo MD LAB MICROBIOLOGY - GENE RAL ORDERABLES Final Result Performing Organization Address [facility] Co de Phone Number JUAREZ CHARLTON [facility] [place] [address] * Blood culture Blood (03/15/2024 4:28 AM CDT) Report Final Report: No growth Blood 03/15/2024 4:28 AM CDT 03/15/2024 5:37 AM CDT Narrative [facility] - 03/19/2024 7:01 AM MUSIC ASSISTANT Collection->Peripheral 1. ?Blood cultures are incubated for 4 days on a continuously monitored blood culture system. The first report of a negative culture is issued within 24 hours of receipt of the specimen in the laboratory. 2. ?Positive culture results are reported as soon as they are detected. 3. ?The most important factor for detection of microbes in the setting of bloodstream infection is the volume of blood submitted for culture. Failure to collect an optimal blood volume can result in false negative blood cultures. For pediatric patients, the recommended blood volume to collect is 1 mL of blood per year of patient age (up to 20 mL) per blood culture set. For adult patients, 20 mL of blood, divided equally between aerobic and anaerobic blood culture bottles, is recommended for each blood culture set. 4. ?For blood cultures with Gram-positive cocci, a rapid molecular test for organism identification may be performed using the Bit9igene Gram-Positive Blood Culture Assay. This assay detects microbial DNA in positive blood culture broth via hybridization of target DNA to capture oligonucleotides on a microarray. This assay has been cleared by the [place] Food and Drug Administration and its performance characteristics have been verified by the [facility] Microbiology Laboratory. 5. ?For questions about this culture, contact the Microbiology Laboratory at [phone]. Interpretive data was last revised on 2019. Shane Alfredo MD LAB MICROBIOLOGY - GENE RAL ORDERABLES Final Result Performing Organization Address [facility] Co de Phone Number [facility] [place] [address] * (ABNORMAL) CBC without differential (03/15/2024 4:28 AM CDT) [facility] WBC 6.5 3.8 - 9.9 K/cumm Hgb 11.1(L) 13.0 - 17.5 g/dL [facility] Hct 34.2(L) 38.9 - 50.3 % [facility] Plt 165 150 - 400 K/cumm [facility] MPV 10.9 9.1 - 12.3 fL [facility] RBC 3.76(L) 4.30 - 5.80 M/cumm [facility] MCV 91.0 81.3 - 96.4 fL [facility] MCH 29.5 27.1 - 33.3 pg [facility] MCHC 32.5 32.3 - 35.7 g/dL [facility] RDW CV 13.3 11.1 - 14.9 % [facility] RDW SD 43.8 35.7 - 48.1 fL [facility] NRBC abs 0.00 0.00 - 0.01 K/cumm [facility] Blood 03/15/2024 4:28 AM CDT 03/15/2024 5:18 AM CDT us Shane Alfredo MD LAB BLOOD ORDERABLES Fi nal Result [facility] Department [place] [address] * (ABNORMAL) Hepatic function panel (03/15/2024 4:28 AM CDT) [facility] Bilirubin, total 0.4 0.1 - 1.2 mg/dL Bilirubin, direct <0.2 0.1 - 0.3 mg/dL [facility] Protein, pl 6.5 6.5 - 8.5 g/dL [facility] Albumin 3.3(L) 3.5 - 5.0 g/dL [facility] Alk phos 71 40 - 130 Units/L [facility] ALT 16 7 - 55 Units/L [facility] AST 25 10 - 50 Units/L [facility] Blood 03/15/2024 4:28 AM CDT 03/15/2024 5:18 AM CDT Shane Alfredo MD LAB BLOOD ORDERABLES Fi nal Result Performing Organization Address City/[facility]/ZIP Co de Phone Number [facility] Department [place] [address] * Basic metabolic panel (03/15/2024 4:28 AM CDT) [facility] Sodium 137 135 - 145 mmol/L Potassium, pl 4.9 3.3 - 4.9 mmol/L [facility] Chloride 103 97 - 110 mmol/L [facility] CO2 26 22 - 32 mmol/L [facility] Anion gap 8 2 - 15 mmol/L [facility] BUN 20 6 - 25 mg/dL [facility] Creatinine 1.04 0.80 - 1.30 mg/dL [facility] Glucose 94 70 - 199 mg/dL [facility] Comment: Interpretive Data Fasting glucose >/= 126 mg/dl is diagnostic for diabetes. ?? Fasting is defined as no caloric intake for at least 8 hours. Fasting glucose between 100 mg/dl to 125 mg/dl is diagnostic of prediabetes. In a patient with classic symptoms of hyperglycemia or hyperglycemic crisis, a random glucose >/= 200 mg/dl is diagnostic for diabetes. In the absence of unequivocal hyperglycemia, results should be confirmed by repeat testing. The classification and Diagnosis of Diabetes Diabetes Care 2021; 46: S19-S40. Current interpretive data was last revised 2022. Calcium 8.9 8.5 - 10.3 mg/dL [facility] Blood 03/15/2024 4:28 AM CDT 03/15/2024 5:18 AM CDT Shane Alfredo MD LAB BLOOD ORDERABLES Fi nal Result Performing Organization Address City/[facility]/ZIP Co de Phone Number [facility] Department [place] [address] * eGFR (03/14/2024 4:01 AM CDT) eGFR 69 >=60 mL/min/1. 73 m2 Comment: Interpretive Data Reference Interval Normal ?>/= 90 mL/min/1.73m2 Mildly decreased* ? 60 - 89 mL/min/1.73m2 Mildly to moderately decreased ?45 - 59 mL/min/1.73m2 Moderately to severely decreased ??30 - 44 mL/min/1.73m2 Severely decreased ?15 - 29 mL/min/1.73m2 Kidney Failure ?< 15 ??mL/min/1.73m2 *Relative to young adult level Estimated glomerular filtration rate is determined by the 2020 CKD-EPI equation recommended by the National Kidney Foundation (A Unifying Approach to GFR Estimation: Recommendations of the NKF-ASK Task Force on Reassessing the Inclusion of Race in Diagnosing Kidney Disease, JASN 2020). The CKD-EPI equation should not be used for patients with unstable renal function and has not been validated in children and those over 70. Current interpretive data was last reviewed 2021. Blood 03/14/2024 4:01 AM CDT 03/14/2024 4:46 AM CDT us Shane Alfredo MD LAB BLOOD ORDERABLES Fi nal Result [facility] [place] [address] * (ABNORMAL) Blood culture Blood (03/14/2024 4:01 AM CDT) Direct Specimen Exam Stain: Gram Positive Cocci in clusters Time to culture positivity (aerobic media): 15.0 hours Time to culture positivity (anaerobic media): 18.0 hours Notification of: Gram Positive Cocci in clusters called to and read back by: Rocio Berry NP [phone] on 03/14/2024 23:38:16 by: Sinai Rose MT. Direct Specimen Exam Molecular Analysis: Methicillin-resist ant Staphylococcus aureus (MRSA) detected by the Verigene Blood Culture Nucleic Acid Test. This test does not exclude the possibility of a mixed bacterial infection. Notification of: Methicillin-resist ant Staphylococcus aureus called to and read back by: Rocio Berry NP [phone] on 03/14/2024 23:37:35 by: MT. JUAREZ Manzo [facility] Report Final Report: Staphylococcus aureus Vancomycin Intermediate Methicillin resistant (MRSA) by penicillin binding protein 2a (PBP2a) testing. Staphylococcus aureus #2 Methicillin resistant (MRSA) by penicillin binding protein 2a (PBP2a) testing. * ??* ??* ??* ??* ??* ??* ??* ??* ??* ??* ??* ??* ??* ??* ??* ??* ??* ??* ??* Results called to and read back by: Armando Mejia MD [phone] on 03/18/2024 13:26:20 by: Cornelia Jackson MLS (.) [facility] Organism [facility] Organism [facility]US [facility] Blood 03/14/2024 4:01 AM CDT 03/14/2024 4:56 AM CDT Narrative [facility] - 03/20/2024 1:13 PM MUSIC ASSISTANT Collection->Peripheral 1. ?Blood cultures are incubated for 4 days on a continuously monitored blood culture system. The first report of a negative culture is issued within 24 hours of receipt of the specimen in the laboratory. 2. ?Positive culture results are reported as soon as they are detected. 3. ?The most important factor for detection of microbes in the setting of bloodstream infection is the volume of blood submitted for culture. Failure to collect an optimal blood volume can result in false negative blood cultures. For pediatric patients, the recommended blood volume to collect is 1 mL of blood per year of patient age (up to 20 mL) per blood culture set. For adult patients, 20 mL of blood, divided equally between aerobic and anaerobic blood culture bottles, is recommended for each blood culture set. 4. ?For blood cultures with Gram-positive cocci, a rapid molecular test for organism identification may be performed using the Bit9igene Gram-Positive Blood Culture Assay. This assay detects microbial DNA in positive blood culture broth via hybridization of target DNA to capture oligonucleotides on a microarray. This assay has been cleared by the [place] Food and Drug Administration and its performance characteristics have been verified by the [facility] Microbiology Laboratory. 5. ?For questions about this culture, contact the Microbiology Laboratory at [phone]. Interpretive data was last revised on 2019. Organism Antibiotic Method Susceptibility Staphylococcus aureus Daptomycin ([place]) ([place]) INTERPRET ATION Not Susceptible Staphylococcus aureus Ceftaroline ([place]) INTERPRETATIO N Susceptible Staphylococcus aureus Doxycycline ([place]) INTERPRETATIO N Susceptible Staphylococcus aureus Linezolid ([place]) INTERPRETATIO N Susceptible Staphylococcus aureus Trimethoprim with Sulfamethoxazole ([place]) INTERPRETATION Susceptible Staphylococcus aureus Clindamycin ([place]) INTERPRETATIO N Resistant Staphylococcus aureus Erythromycin ([place]) INTERPRETATIO N Resistant Staphylococcus aureus Oxacillin ([place]) INTERPRETATIO N Resistant Staphylococcus aureus Cefazolin ([place]) INTERPRETATIO N Resistant Staphylococcus aureus Ceftriaxone ([place]) INTERPRETATIO N Resistant Staphylococcus aureus Vancomycin ([place]) (REM[place]) INTERPRET ATION Intermediate Staphylococcus aureus Dalbavancin ([place]) (REM[place]) INTERPRE TATION Susceptible Staphylococcus aureus Televancin ([place]) ([place]) INTERPRET ATION Susceptible Staphylococcus aureus Daptomycin ([place]) ([place]) INTERPRET ATION Susceptible Staphylococcus aureus Ceftaroline ([place]) INTERPRETATIO N Susceptible Staphylococcus aureus Doxycycline ([place]) INTERPRETATIO N Susceptible Staphylococcus aureus Linezolid ([place]) INTERPRETATIO N Susceptible Staphylococcus aureus Trimethoprim with Sulfamethoxazole ([place]) INTERPRETATION Susceptible Staphylococcus aureus Clindamycin ([place]) INTERPRETATIO N Resistant Staphylococcus aureus Erythromycin ([place]) INTERPRETATIO N Resistant Staphylococcus aureus Vancomycin ([place]) INTERPRETATIO N Susceptible Staphylococcus aureus Oxacillin ([place]) INTERPRETATIO N Resistant Staphylococcus aureus Cefazolin ([place]) INTERPRETATIO N Resistant Staphylococcus aureus Ceftriaxone ([place]) INTERPRETATIO N Resistant us Shane Alfredo MD LAB MICROBIOLOGY - GENE RAL ORDERABLES Final Result [facility] Department [place] [address] * (ABNORMAL) Blood culture Blood (03/14/2024 4:01 AM CDT) Direct Specimen Exam Stain: Gram Positive Cocci in clusters Time to culture positivity (anaerobic media): 19.0 hours Report Final Report: Staphylococcus aureus For susceptibility results, refer to accession number [id number] on the blood culture from 03/14/2024 (.) [facility] Organism STAPHYLOCOCCUS AUREUS [facility] Blood 03/14/2024 4:01 AM CDT 03/14/2024 4:56 AM CDT Narrative [facility] - 03/19/2024 7:38 AM MUSIC ASSISTANT Collection->Peripheral 1. ?Blood cultures are incubated for 4 days on a continuously monitored blood culture system. The first report of a negative culture is issued within 24 hours of receipt of the specimen in the laboratory. 2. ?Positive culture results are reported as soon as they are detected. 3. ?The most important factor for detection of microbes in the setting of bloodstream infection is the volume of blood submitted for culture. Failure to collect an optimal blood volume can result in false negative blood cultures. For pediatric patients, the recommended blood volume to collect is 1 mL of blood per year of patient age (up to 20 mL) per blood culture set. For adult patients, 20 mL of blood, divided equally between aerobic and anaerobic blood culture bottles, is recommended for each blood culture set. 4. ?For blood cultures with Gram-positive cocci, a rapid molecular test for organism identification may be performed using the Bit9igene Gram-Positive Blood Culture Assay. This assay detects microbial DNA in positive blood culture broth via hybridization of target DNA to capture oligonucleotides on a microarray. This assay has been cleared by the [place] Food and Drug Administration and its performance characteristics have been verified by the [facility] Microbiology Laboratory. 5. ?For questions about this culture, contact the Microbiology Laboratory at [phone]. Interpretive data was last revised on 2019. us Shane Alfredo MD LAB MICROBIOLOGY - GENE RAL ORDERABLES Final Result [facility] Department [place] [address] * (ABNORMAL) CBC without differential (03/14/2024 4:01 AM CDT) Pathologist [facility] WBC 7.0 3.8 - 9.9 K/cumm Hgb 11.2(L) 13.0 - 17.5 g/dL [facility] Hct 35.3(L) 38.9 - 50.3 % [facility] Plt 187 150 - 400 K/cumm [facility] MPV 11.0 9.1 - 12.3 fL [facility] RBC 3.82(L) 4.30 - 5.80 M/cumm [facility] MCV 92.4 81.3 - 96.4 fL [facility] MCH 29.3 27.1 - 33.3 pg [facility] MCHC 31.7(L) 32.3 - 35.7 g/dL [facility] RDW CV 13.4 11.1 - 14.9 % [facility] RDW SD 44.9 35.7 - 48.1 fL [facility] NRBC abs 0.00 0.00 - 0.01 K/cumm [facility] Blood 03/14/2024 4:01 AM CDT 03/14/2024 4:46 AM CDT Shane Alfredo MD LAB BLOOD ORDERABLES Fi nal Result [facility] Department [place] [address] * Basic metabolic panel (03/14/2024 4:01 AM CDT) Pathologist [facility] Sodium 136 135 - 145 mmol/L Potassium, pl 4.9 3.3 - 4.9 mmol/L [facility] Chloride 103 97 - 110 mmol/L [facility] CO2 26 22 - 32 mmol/L [facility] Anion gap 7 2 - 15 mmol/L [facility] BUN 22 6 - 25 mg/dL [facility] Creatinine 1.06 0.80 - 1.30 mg/dL [facility] Glucose 99 70 - 199 mg/dL [facility] Comment: Interpretive Data Fasting glucose >/= 126 mg/dl is diagnostic for diabetes. ?? Fasting is defined as no caloric intake for at least 8 hours. Fasting glucose between 100 mg/dl to 125 mg/dl is diagnostic of prediabetes. In a patient with classic symptoms of hyperglycemia or hyperglycemic crisis, a random glucose >/= 200 mg/dl is diagnostic for diabetes. In the absence of unequivocal hyperglycemia, results should be confirmed by repeat testing. The classification and Diagnosis of Diabetes Diabetes Care 202; 46: S19-S40. Current interpretive data was last revised 2022. Calcium 9.0 8.5 - 10.3 mg/dL [facility] Blood 03/14/2024 4:01 AM CDT 03/14/2024 4:46 AM CDT us Shane Alfredo MD LAB BLOOD ORDERABLES nal Result [facility] Department [place] [address] * eGFR (03/13/2024 4:10 AM CDT) eGFR 80 >=60 mL/min/1. 73 m2 Comment: Interpretive Data Reference Interval Normal ?>/= 90 mL/min/1.73m2 Mildly decreased* ? 60 - 89 mL/min/1.73m2 Mildly to moderately decreased ?45 - 59 mL/min/1.73m2 Moderately to severely decreased ??30 - 44 mL/min/1.73m2 Severely decreased ?15 - 29 mL/min/1.73m2 Kidney Failure ?< 15 ??mL/min/1.73m2 *Relative to young adult level Estimated glomerular filtration rate is determined by the 2020 CKD-EPI equation recommended by the National Kidney Foundation (A Unifying Approach to GFR Estimation: Recommendations of the NKF-ASK Task Force on Reassessing the Inclusion of Race in Diagnosing Kidney Disease, JASN 202). The CKD-EPI equation should not be used for patients with unstable renal function and has not been validated in children and those over 70. Current interpretive data was last reviewed 2021. Blood 03/13/2024 4:10 AM CDT 03/13/2024 7:37 AM CDT Shane Alfredo MD LAB BLOOD ORDERABLES Fi nal Result [facility] Department [place] [address] * Blood culture Blood (03/13/2024 4:10 AM CDT) Report Final Report: No growth Blood 03/13/2024 4:10 AM CDT 03/13/2024 6:42 AM CDT Narrative [facility] - 03/17/2024 7:00 AM CDT Collection->Peripheral 1. ?Blood cultures are incubated for 4 days on a continuously monitored blood culture system. The first report of a negative culture is issued within 24 hours of receipt of the specimen in the laboratory. 2. ?Positive culture results are reported as soon as they are detected. 3. ?The most important factor for detection of microbes in the setting of bloodstream infection is the volume of blood submitted for culture. Failure to collect an optimal blood volume can result in false negative blood cultures. For pediatric patients, the recommended blood volume to collect is 1 mL of blood per year of patient age (up to 20 mL) per blood culture set. For adult patients, 20 mL of blood, divided equally between aerobic and anaerobic blood culture bottles, is recommended for each blood culture set. 4. ?For blood cultures with Gram-positive cocci, a rapid molecular test for organism identification may be performed using the Verigene Gram-Positive Blood Culture Assay. This assay detects microbial DNA in positive blood culture broth via hybridization of target DNA to capture oligonucleotides on a microarray. This assay has been cleared by the [place] Food and Drug Administration and its performance characteristics have been verified by the [facility]biology Laboratory. 5. ?For questions about this culture, contact the Microbiology Laboratory at [phone]. Interpretive data was last revised on 2019. us Shane Alfredo MD LAB MICROBIOLOGY - GENE RAL ORDERABLES Final Result [facility] Department [place] [address] * Blood culture Blood (03/13/2024 4:10 AM CDT) Report Final Report: No growth Blood 03/13/2024 4:10 AM CDT 03/13/2024 6:42 AM CDT Narrative [facility] - 03/17/2024 7:00 AM CDT Collection->Peripheral 1. ?Blood cultures are incubated for 4 days on a continuously monitored blood culture system. The first report of a negative culture is issued within 24 hours of receipt of the specimen in the laboratory. 2. ?Positive culture results are reported as soon as they are detected. 3. ?The most important factor for detection of microbes in the setting of bloodstream infection is the volume of blood submitted for culture. Failure to collect an optimal blood volume can result in false negative blood cultures. For pediatric patients, the recommended blood volume to collect is 1 mL of blood per year of patient age (up to 20 mL) per blood culture set. For adult patients, 20 mL of blood, divided equally between aerobic and anaerobic blood culture bottles, is recommended for each blood culture set. 4. ?For blood cultures with Gram-positive cocci, a rapid molecular test for organism identification may be performed using the Verigene Gram-Positive Blood Culture Assay. This assay detects microbial DNA in positive blood culture broth via hybridization of target DNA to capture oligonucleotides on a microarray. This assay has been cleared by the [place] Food and Drug Administration and its performance characteristics have been verified by the [facility]biology [facility]. 5. ?For questions about this culture, contact the Microbiology Laboratory at [phone]. Interpretive data was last revised on 2019. Shane Alfredo MD LAB MICROBIOLOGY - GENE RAL ORDERABLES Final Result Performing Organization Address City/[facility]/ZIP Co de Phone Number [facility] [place] [address] * (ABNORMAL) CBC without differential (03/13/2024 4:10 AM CDT) [facility] WBC 6.6 3.8 - 9.9 K/cumm Hgb 11.8(L) 13.0 - 17.5 g/dL [facility] Hct 37.9(L) 38.9 - 50.3 % [facility] Plt 214 150 - 400 K/cumm [facility] MPV 11.1 9.1 - 12.3 fL [facility] RBC 4.14(L) 4.30 - 5.80 M/cumm [facility] MCV 91.5 81.3 - 96.4 fL [facility] MCH 28.5 27.1 - 33.3 pg [facility] MCHC 31.1(L) 32.3 - 35.7 g/dL [facility] RDW CV 13.3 11.1 - 14.9 % [facility] RDW SD 45.0 35.7 - 48.1 fL [facility] NRBC abs 0.00 0.00 - 0.01 K/cumm [facility] Blood 03/13/2024 4:10 AM CDT 03/13/2024 7:25 AM CDT Shane Alfredo MD LAB BLOOD ORDERABLES Fi nal Result Performing Organization Address City/[facility]/ZIP Co de Phone Number [facility] Department [place] [address] * (ABNORMAL) Creatine kinase (CK), total (03/13/2024 4:10 AM CDT) CK 36(L) 40 - 300 Units/L Blood 03/13/2024 4:10 AM CDT 03/13/2024 7:25 AM CDT Armando Dodson DEMO COORDINATOR LAB BLOOD ORDERABLES Final Result Performing Organization Address City/[facility] Co de Phone Number [facility] Department [place] [address] * Basic metabolic panel (03/13/2024 4:10 AM CDT) Pathologist [facility] Sodium 139 135 - 145 mmol/L Potassium, pl 4.5 3.3 - 4.9 mmol/L [facility] Chloride 103 97 - 110 mmol/L [facility] CO2 26 22 - 32 mmol/L [facility] Anion gap 10 2 - 15 mmol/L [facility] BUN 15 6 - 25 mg/dL [facility] Creatinine 0.94 0.80 - 1.30 mg/dL [facility] Glucose 88 70 - 199 mg/dL [facility] Comment: Interpretive Data Fasting glucose >/= 126 mg/dl is diagnostic for diabetes. ?? Fasting is defined as no caloric intake for at least 8 hours. Fasting glucose between 100 mg/dl to 125 mg/dl is diagnostic of prediabetes. In a patient with classic symptoms of hyperglycemia or hyperglycemic crisis, a random glucose >/= 200 mg/dl is diagnostic for diabetes. In the absence of unequivocal hyperglycemia, results should be confirmed by repeat testing. The classification and Diagnosis of Diabetes Diabetes Care 2021; 46: S19-S40. Current interpretive data was last revised 2022. Calcium 9.5 8.5 - 10.3 mg/dL [facility] Blood 03/13/2024 4:10 AM CDT 03/13/2024 7:25 AM CDT Shane Alfredo MD LAB BLOOD ORDERABLES Fi nal Result Performing Organization Address City/[facility] Co de Phone Number [facility] [place] [address] * eGFR (03/12/2024 5:37 AM CDT) eGFR 84 >=60 mL/min/1. 73 m2 Comment: Interpretive Data Reference Interval Normal ?>/= 90 mL/min/1.73m2 Mildly decreased* ? 60 - 89 mL/min/1.73m2 Mildly to moderately decreased ?45 - 59 mL/min/1.73m2 Moderately to severely decreased ??30 - 44 mL/min/1.73m2 Severely decreased ?15 - 29 mL/min/1.73m2 Kidney Failure ?< 15 ??mL/min/1.73m2 *Relative to young adult level Estimated glomerular filtration rate is determined by the 2020 CKD-EPI equation recommended by the National Kidney Foundation (A Unifying Approach to GFR Estimation: Recommendations of the NKF-ASK Task Force on Reassessing the Inclusion of Race in Diagnosing Kidney Disease, JASN 2020). The CKD-EPI equation should not be used for patients with unstable renal function and has not been validated in children and those over 70. Current interpretive data was last reviewed 2021. Blood 03/12/2024 5:37 AM CDT 03/12/2024 7:44 AM CDT us Shane Alfredo MD LAB BLOOD ORDERABLES Fi nal Result Performing Organization Address City/[facility] Co de Phone Number [facility] [place] [address] * Blood culture Blood (03/12/2024 5:37 AM CDT) Report Final Report: No growth Blood 03/12/2024 5:37 AM CDT 03/12/2024 7:35 AM CDT Narrative [facility] - 03/16/2024 12:00 PM CDT Collection->Peripheral 1. ?Blood cultures are incubated for 4 days on a continuously monitored blood culture system. The first report of a negative culture is issued within 24 hours of receipt of the specimen in the laboratory. 2. ?Positive culture results are reported as soon as they are detected. 3. ?The most important factor for detection of microbes in the setting of bloodstream infection is the volume of blood submitted for culture. Failure to collect an optimal blood volume can result in false negative blood cultures. For pediatric patients, the recommended blood volume to collect is 1 mL of blood per year of patient age (up to 20 mL) per blood culture set. For adult patients, 20 mL of blood, divided equally between aerobic and anaerobic blood culture bottles, is recommended for each blood culture set. 4. ?For blood cultures with Gram-positive cocci, a rapid molecular test for organism identification may be performed using the Bit9igene Gram-Positive Blood Culture Assay. This assay detects microbial DNA in positive blood culture broth via hybridization of target DNA to capture oligonucleotides on a microarray. This assay has been cleared by the [place] Food and Drug Administration and its performance characteristics have been verified by the [facility] Microbiology Laboratory. 5. ?For questions about this culture, contact the Microbiology Laboratory at [phone]. Interpretive data was last revised on 2019. us Shane Alfredo MD LAB MICROBIOLOGY - [facility] ORDERABLES Final Result [facility] Department [place] [address] * Blood culture Blood (03/12/2024 5:37 AM CDT) Report Final Report: No growth Blood 03/12/2024 5:37 AM CDT 03/12/2024 7:35 AM CDT Narrative [facility] - 03/16/2024 12:00 PM CDT Collection->Peripheral 1. ?Blood cultures are incubated for 4 days on a continuously monitored blood culture system. The first report of a negative culture is issued within 24 hours of receipt of the specimen in the laboratory. 2. ?Positive culture results are reported as soon as they are detected. 3. ?The most important factor for detection of microbes in the setting of bloodstream infection is the volume of blood submitted for culture. Failure to collect an optimal blood volume can result in false negative blood cultures. For pediatric patients, the recommended blood volume to collect is 1 mL of blood per year of patient age (up to 20 mL) per blood culture set. For adult patients, 20 mL of blood, divided equally between aerobic and anaerobic blood culture bottles, is recommended for each blood culture set. 4. ?For blood cultures with Gram-positive cocci, a rapid molecular test for organism identification may be performed using the [employer] Gram-Positive Blood Culture Assay. This assay detects microbial DNA in positive blood culture broth via hybridization of target DNA to capture oligonucleotides on a microarray. This assay has been cleared by the [place] Food and Drug Administration and its performance characteristics have been verified by the [facility]biology [facility]. 5. ?For questions about this culture, contact the Microbiology Laboratory at [phone]. Interpretive data was last revised on 2019. us Shane Alfredo MD LAB MICROBIOLOGY - [facility] ORDERABLES Final Result [facility] Department [place] [address] * (ABNORMAL) CBC without differential (03/12/2024 5:37 AM CDT) [facility] WBC 5.9 3.8 - 9.9 K/cumm Hgb 11.4(L) 13.0 - 17.5 g/dL [facility] Hct 35.3(L) 38.9 - 50.3 % [facility] Plt 178 150 - 400 K/cumm [facility] MPV 11.1 9.1 - 12.3 fL [facility] RBC 3.86(L) 4.30 - 5.80 M/cumm [facility] MCV 91.5 81.3 - 96.4 fL [facility] MCH 29.5 27.1 - 33.3 pg [facility] MCHC 32.3 32.3 - 35.7 g/dL [facility] RDW CV 13.3 11.1 - 14.9 % [facility] RDW SD 44.5 35.7 - 48.1 fL [facility] NRBC abs 0.00 0.00 - 0.01 K/cumm [facility] Blood 03/12/2024 5:37 AM CDT 03/12/2024 7:28 AM CDT us Shane Alfredo MD LAB BLOOD ORDERABLES Fi nal Result [facility] Department [place] [address] * Basic metabolic panel (03/12/2024 5:37 AM CDT) Sodium 140 135 - 145 mmol/L Potassium, pl 4.6 3.3 - 4.9 mmol/L [facility] Chloride 102 97 - 110 mmol/L [facility] CO2 25 22 - 32 mmol/L [facility] Anion gap 13 2 - 15 mmol/L [facility] BUN 15 6 - 25 mg/dL [facility] Creatinine 0.89 0.80 - 1.30 mg/dL [facility] Glucose 90 70 - 199 mg/dL [facility] Comment: Interpretive Data Fasting glucose >/= 126 mg/dl is diagnostic for diabetes. ?? Fasting is defined as no caloric intake for at least 8 hours. Fasting glucose between 100 mg/dl to 125 mg/dl is diagnostic of prediabetes. In a patient with classic symptoms of hyperglycemia or hyperglycemic crisis, a random glucose >/= 200 mg/dl is diagnostic for diabetes. In the absence of unequivocal hyperglycemia, results should be confirmed by repeat testing. The classification and Diagnosis of Diabetes Diabetes Care 2021; 46: S19-S40. Current interpretive data was last revised 2022. Calcium 9.1 8.5 - 10.3 mg/dL [facility] Blood 03/12/2024 5:37 AM CDT 03/12/2024 7:28 AM CDT us Shane Alfredo MD LAB BLOOD ORDERABLES Fi nal Result 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 Insurance MEDICARE [facility] MEDICARE [facility] MEDICARE [facility] MEDICARE MEDICARE [facility] MEDICARE Advance Directives For more information, please contact: [phone] Documents on File Type Date Recorded Patient Geometry Tutor Expl anation ADVANCE DIRECTIVE 04/09/2024 10:06 PM [facility] ANALYST-MEDICAL ADVANCE DIRECTIVE 03/01/2024 1:00 PM [facility] ANALYST-MEDICAL * Full Code (Latest Code Status on File) Date Activated Date Inactivated Comments 05/13/2024 3:07 AM 05/31/2024 7:26 PM * Full Code Date Activated Date Inactivated Comments 02/29/2024 8:03 AM 04/05/2024 9:15 PM * Full Code Date Activated Date Inactivated Comments 02/16/2022 7:26 PM 02/17/2022 2:25 PM Healthcare Agents on File Name Relationship Healthcare Agent Relationshi p Communication Vita Carias Spouse Health Care Agent Iris Oreillyriky Other First Alternate Health Care Agent Care Teams Orthopedic Technician Relationship Specialty Start Date End Date Robert Whitlock MD [address] [address] PCP - General Internal Medicine 12/09/18 Brannon Nina MD Referring Physician Cardiology 02/10/18
--- OUTSIDE RECORDS SUMMARY | 2024-06-12 16:39 | XMS_ITS | Encounter Summary ---
Author Organization [facility] Healthcare Address [address] [place] [address] Care Team Providers Care Slip Sheeter Name Role Phone Brannon Nina MD Unavailable Robert Whitlock MD Primary Care Provider [phone] Reason for Referral * Diagnostic Imaging (Routine) - Closed Specialty Diagnoses / Procedures Referred By Contac t Referred To Contact Radiology Diagnoses Constipation, unspecified constipation type Procedures CT Colonoscopy Screening CT Colonoscopy Diagnostic WO Contrast Robert Whitlock MD [address] [address] Phone: tel: fax: [address] [phone] Referral ID Status Reason Start Date Expiration Date Visits Re quested Visits Authorized [id number] Closed 09/26/2019 04/06/2021 1 1 Encounter Details Date Type Department Care Team (Late st Contact Info) Description 09/26/2019 Orders Only Internal Medicine Robert Whitlock MD [address] [address] Constipation, unspecified constipation type (Primary Dx) Social History Tobacco Use Types Packs/Day Years Used Date Smoking Tobacco: Former Smokeless Tobacco: Never Alcohol Use Standard Drinks/Week Comments Yes 0 (1 standard drink = 0.6 oz pur e alcohol) Sex and Gender Information Value Date Recorded Sex Assigned at Not on file 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 ??No polyps greater than 5 mm on examination limited by underdistention of the sigmoid colon. ??There is extensive colonic diverticulosis. E2: Clinically unimportant finding, no workup indicated. Dictated by: Glendy Redman M.D. The radiology attending physician has personally reviewed this study, and had reviewed and/or edited this written report and agrees with it. Electronically signed by: Sarah Pickering M.D. Narrative 10/16/2019 12:00 PM CDT EXAMINATION: ?? CT colonography without intravenous contrast HISTORY: 79-year-old man with constipation. TECHNIQUE: Transaxial vascular for aortic dissection and computed tomographic images through the abdomen and pelvis were obtained without intravenous contrast after insufflation of the colon with CO2 through a rectal catheter. Images were obtained in the supine and right lateral decubitus positions. COMPARISON: None FINDINGS: The following findings are reported according to the CT Colonography Reporting and Data System (C-RADS) from Radiology 2005; 236:3-9. Colonic preparation and distention: Limited distention of the sigmoid colon due to extensive diverticulosis. Colonic findings: There is extensive colonic diverticulosis. No polyps greater than 5 mm are detected. Extracolonic findings: This CT examination is performed without intravenous contrast and with a low dose technique optimized for evaluation of the colon. A large gallstone is present. ??There are mild aortic calcifications. There is a small hiatal hernia. Degenerative changes of the visualized spine are present. Procedure Note Sarah Pickering MD - 10/16/2019 EXAMINATION: CT colonography without intravenous contrast HISTORY: 79-year-old man with constipation. TECHNIQUE: Transaxial vascular for aortic dissection and computed tomographic images through the abdomen and pelvis were obtained without intravenous contrast after insufflation of the colon with CO2 through a rectal catheter. Images were obtained in the supine and right lateral decubitus positions. COMPARISON: None FINDINGS: The following findings are reported according to the CT Colonography Reporting and Data System (C-RADS) from Radiology 2005; 236:3-9. Colonic preparation and distention: Limited distention of the sigmoid colon due to extensive diverticulosis. Colonic findings: There is extensive colonic diverticulosis. No polyps greater than 5 mm are detected. Extracolonic findings: This CT examination is performed without intravenous contrast and with a low dose technique optimized for evaluation of the colon. A large gallstone is present. There are mild aortic calcifications. There is a small hiatal hernia. Degenerative changes of the visualized spine are present. IMPRESSION: C1: Normal colon or benign lesion, continue routine screening. No polyps greater than 5 mm on examination limited by underdistention of the sigmoid colon. There is extensive colonic diverticulosis. E2: Clinically unimportant finding, no workup indicated. Dictated by: Glendy Redman M.D. The radiology attending physician has personally reviewed this study, and had reviewed and/or edited this written report and agrees with it. Electronically signed by: Sarah Pickering M.D. 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
--- OUTSIDE RECORDS SUMMARY | 2024-06-12 16:39 | XMS_ITS | Clinical Summary ---
Author Organization [facility] Address [address] [place] [address] Care Team Providers Care Logistics Team Leader Name Role Phone Brannon Nina MD Unavailable [phone] Robert Whitlock MD Primary Care Provider [phone] Allergies No known active allergies Medications miconazole [...] (two) times a day 04/05/20 24 Active polyethylene glycol (MIRALAX) 17 gram/dose bulk [...] venous catheter every 12 (twelve) hours 05/31/19 Active mirtazapine (REMERON JALEN-TAB) 15 mg disintegrating [...] 05/30/2024 Assessment & Plan (05/31/2024 11:40 AM DESKTOP OPERATOR): Thrombocytopenia developing from 05/26 onwards to 05/29 [...] 05/28/2024 Assessment & Plan (05/28/2024 2:22 AM DESKTOP OPERATOR): 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 Nursing reports that he is intermittently forgetful of where he is and why. - Home donepezil Irritation of skin of perianal region 05/28/2024 Assessment & Plan (05/28/2024 1:42 PM DESKTOP OPERATOR): Wound care consulted regarding breakdown to [place]-anal [...] 05/28/2024 Assessment & Plan (05/28/2024 1:52 PM DESKTOP OPERATOR): S/p ppm - tele Bacteremia 05/13/2024 Overview [...] (03/17-04/28). He initially presented this admission to [facility] with fevers and was found to have [...] suppression. Assessment & Plan (05/30/2024 1:37 PM DESKTOP OPERATOR): - Blood culture negative since 05/14. 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 Planned six week course IV Daptomycin 700 mg Q 24 and Ceftaroline 600 mg Q12 for complicated MRSA bacteremia (EOT 04/28/24). - facility has not sent labs after multiple requests, awaiting labs for review. - discontinue IV Dapto and Ceftaroline today 04/28/24. - facility to arrange Right CVC removal. Assessment & Plan (04/05/2024 9:10 AM DESKTOP OPERATOR): Recently presented to [facility] with fevers and altered mental status. 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 The patient was instructed to come to [facility]. [facility] PPM implanted 02/16/2022. 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, s/p device extracted by CTS on 03/07 -Blood cultures positive for MRSA -Persistently positive blood cultures with concern for aortic valve involvement -JOSEPH 03/17 with vegetation noted on temporary pacer wire -Left IJ temporary pacer removed and replaced on [facility] on 03/20 -S/p left-sided pacemaker placement on [...] made; awaiting to hear approval from Shweta Redman>>Shweta Redman is waiting on arrival of Ceftaroline to facility -therapeutic case manager making plan with Shweta redman for possible discharge tomorrow Assessment & Plan (04/02/2024 12:51 PM DESKTOP OPERATOR): Recently presented to [facility] with fevers and altered mental status. 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 The patient was instructed to come to [facility]. [facility] PPM implanted 02/16/2022. -Pacemaker dependent-s/p [...] antibiotics in a supervised facility such as [facility] --> referrals made; awaiting to hear approval from [facility] Assessment & Plan (04/01/2024 2:56 PM DESKTOP OPERATOR): Recently presented to [facility] with fevers and altered mental status. 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 The patient was instructed to come to [facility]. [facility] PPM implanted 02/16/2022. -Pacemaker dependent-s/p [...] antibiotics in a supervised facility such as [facility] --> referrals made; awaiting to hear approval from [facility] Assessment & [facility] (03/31/2024 9:42 AM DESKTOP OPERATOR): Recently presented to [facility] with fevers and altered mental status. 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 The patient was instructed to come to [facility]. [facility] PPM implanted 02/16/2022. 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 --> referrals made; awaiting to hear approval from [facility] Assessment & [facility] (03/30/2024 3:31 PM DESKTOP OPERATOR): Recently presented to [facility] with fevers and altered mental status. 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 The patient was instructed to come to [facility]. [facility] PPM implanted 02/16/2022. -Pacemaker dependent-s/p [...] made Assessment & Plan (03/29/2024 10:35 AM DESKTOP OPERATOR): Recently presented to [facility] with fevers and altered mental status. 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 The patient was instructed to come to [facility]. [facility] PPM implanted 02/16/2022. -Pacemaker dependent-s/p [...] place Assessment & Plan (03/26/2024 3:54 PM DESKTOP OPERATOR): Recently presented to [facility] with fevers and altered mental status. 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 The patient was instructed to come to [facility]. [facility] PPM implanted 02/16/2022. -Pacemaker dependent-s/p [...] ceftaroline Assessment & Plan (03/25/2024 2:27 PM DESKTOP OPERATOR): Recently presented to [facility] with fevers and altered mental status. 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 The patient was instructed to come to [facility]. [facility] PPM implanted 02/16/2022. -Pacemaker dependent-s/p [...] ceftaroline Assessment & Plan (03/24/2024 8:46 AM DESKTOP OPERATOR): Recently presented to [facility] with fevers and altered mental status. 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 The patient was instructed to come to [facility]. [facility] PPM implanted 02/16/2022. 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, s/p device extracted by CTS on 03/07 -Blood cultures positive for MRSA -Persistently positive blood cultures with concern for aortic valve involvement -JOSEPH 03/17 with vegetation noted on temp PM wire -Temp pacer removed 03/20 and replaced on [place] -Will discuss PICC timing with ID -Pt [...] ceftaroline Assessment & Plan (03/23/2024 2:08 PM DESKTOP OPERATOR): Recently presented to [facility] with fevers and altered mental status. 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 The patient was instructed to come to [facility]. [facility] PPM implanted 02/16/2022. -Pacemaker dependent-s/p [...] ceftaroline Assessment & Plan (03/22/2024 12:57 PM DESKTOP OPERATOR): Recently presented to [facility] with fevers and altered mental status. 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 The patient was instructed to come to [facility]. [facility] PPM implanted 02/16/2022. -Pacemaker dependent-s/p [...] ceftaroline Assessment & Plan (03/21/2024 10:23 AM DESKTOP OPERATOR): Recently presented to [facility] with fevers and altered mental status. 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 The patient was instructed to come to [facility]. [facility] PPM implanted 02/16/2022. -Pacemaker dependent-s/p [...] ceftaroline Assessment & Plan (03/20/2024 11:31 AM DESKTOP OPERATOR): Recently presented to [facility] with fevers and altered mental status. 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 The patient was instructed to come to [facility]. [facility] PPM implanted 02/16/2022. 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 Assessment & Plan (03/19/2024 1:23 PM DESKTOP OPERATOR): Recently presented to [facility] with fevers and altered mental status. 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 The patient was instructed to come to [facility]. [facility] PPM implanted 02/16/2022. -Pacemaker dependent-s/p [...] (03/18/2024 1:10 PM CDT): Recently presented to [facility] with fevers and altered mental status. 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 The patient was instructed to come to [facility]. [facility] PPM implanted 02/16/2022. -Pacemaker dependent-s/p [...] (03/17/2024 8:57 AM CDT): Recently presented to [facility] with fevers and altered mental status. 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 The patient was instructed to come to [facility]. [facility] PPM implanted 02/16/2022. -Pacemaker dependent-s/p [...] (03/16/2024 9:37 AM CDT): Recently presented to [facility] with fevers and altered mental status. 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 The patient was instructed to come to [facility]. [facility] PPM implanted 02/16/2022. -Pacemaker dependent--s/p [...] (03/14/2024 12:10 PM CDT): Recently presented to [facility] with fevers and altered mental status. 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 The patient was instructed to come to [facility]. [facility] PPM implanted 02/16/2022. -Pacemaker dependent--s/p [...] (03/13/2024 9:26 AM CDT): Recently presented to [facility] with fevers and altered mental status. 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 The patient was instructed to come to [facility]. [facility] PPM implanted 02/16/2022. -Pacemaker dependent--s/p [...] 03/09/2024 Assessment & Plan (04/05/2024 9:11 AM DESKTOP OPERATOR): Valdez catheter removed by RN post procedure on 03/08 and noted foul discharge upon removal. Patient also with altered mental status at the time. UA showing 2+ LE, >50 WBC, and 3+ bacteria. -S/p empiric IV Ceftriaxone 03/08-03/11 -Urine culture with no growth -Ceftriaxone discontinued Assessment & Plan (04/02/2024 12:51 PM DESKTOP OPERATOR): Valdez catheter removed by RN post procedure on 03/08 and noted foul discharge upon removal. Patient also with altered mental status at the time. UA showing 2+ LE, >50 WBC, and 3+ bacteria. -S/p empiric IV Ceftriaxone 03/08-03/11 -Urine culture with no growth -Ceftriaxone discontinued Assessment & Plan (04/01/2024 2:51 PM DESKTOP OPERATOR): Valdez catheter removed by RN post procedure on 03/08 and noted foul discharge upon removal. Patient also with altered mental status at the time. UA showing 2+ LE, >50 WBC, and 3+ bacteria. -S/p empiric IV Ceftriaxone 03/08-03/11 -Urine culture with no growth -Ceftriaxone discontinued Assessment & Plan (03/31/2024 9:42 AM DESKTOP OPERATOR): Valdez catheter removed by RN post procedure on 03/08 and noted foul discharge upon removal. Patient also with altered mental status at the time. UA showing 2+ LE, >50 WBC, and 3+ bacteria. -S/p empiric IV Ceftriaxone 03/08-03/11 -Urine culture with no growth -Ceftriaxone discontinued Assessment & Plan (03/30/2024 3:29 PM DESKTOP OPERATOR): Valdez catheter removed by RN post procedure on 03/08 and noted foul discharge upon removal. Patient also with altered mental status at the time. UA showing 2+ LE, >50 WBC, and 3+ bacteria. -S/p empiric IV Ceftriaxone 03/08-03/11 -Urine culture with no growth -Ceftriaxone discontinued Assessment & Plan (03/29/2024 10:36 AM DESKTOP OPERATOR): Valdez catheter removed by RN post procedure on 03/08 and noted foul discharge upon removal. Patient also with altered mental status at the time. UA showing 2+ LE, >50 WBC, and 3+ bacteria. -S/p empiric IV Ceftriaxone 03/08-03/11 -Urine culture with no growth -Ceftriaxone discontinued Assessment & Plan (03/26/2024 3:55 PM DESKTOP OPERATOR): Valdez catheter removed by RN post procedure on 03/08 and noted foul discharge upon removal. Patient also with altered mental status at the time. Sent clean catch UA showing 2+ LE, >50 WBC, and 3+ bacteria. -S/p empiric IV Ceftriaxone 03/08-03/11 -Urine culture with no growth -Ceftriaxone discontinued Assessment & Plan (03/25/2024 2:28 PM DESKTOP OPERATOR): Valdez catheter removed by RN post procedure on 03/08 and noted foul discharge upon removal. Patient also with altered mental status at the time. Sent clean catch UA showing 2+ LE, >50 WBC, and 3+ bacteria. -S/p empiric IV Ceftriaxone 03/08-03/11 -Urine culture with no growth -Ceftriaxone discontinued Assessment & Plan (03/24/2024 8:47 AM DESKTOP OPERATOR): Valdez catheter removed by RN post procedure on 03/08 and noted foul discharge upon removal. Patient also with altered mental status at the time. Sent clean catch UA showing 2+ LE, >50 WBC, and 3+ bacteria. -S/p empiric IV Ceftriaxone 03/08-03/11 -Urine culture with no growth -Ceftriaxone discontinued Assessment & Plan (03/23/2024 2:08 PM DESKTOP OPERATOR): Valdez catheter removed by RN post procedure on 03/08 and noted foul discharge upon removal. Patient also with altered mental status at the time. Sent clean catch UA showing 2+ LE, >50 WBC, and 3+ bacteria. -S/p empiric IV Ceftriaxone 03/08-03/11 -Urine culture with no growth -Ceftriaxone discontinued Assessment & Plan (03/22/2024 1:00 PM DESKTOP OPERATOR): Valdez catheter removed by RN post procedure on 03/08 and noted foul discharge upon removal. Patient also with altered mental status at the time. Sent clean catch UA showing 2+ LE, >50 WBC, and 3+ bacteria. -S/p empiric IV Ceftriaxone 03/08-03/11 -Urine culture with no growth -Ceftriaxone discontinued Assessment & Plan (03/21/2024 10:27 AM DESKTOP OPERATOR): Valdez catheter removed by RN post procedure on 03/08 and noted foul discharge upon removal. Patient also with altered mental status at the time. Sent clean catch UA showing 2+ LE, >50 WBC, and 3+ bacteria. -S/p empiric IV Ceftriaxone 03/08-03/11 -Urine culture with no growth -Ceftriaxone discontinued Assessment & Plan (03/20/2024 11:32 AM DESKTOP OPERATOR): Valdez catheter removed by RN post procedure on 03/08 and noted foul discharge upon removal. Patient also with altered mental status at the time. Sent clean catch UA showing 2+ LE, >50 WBC, and 3+ bacteria. -S/p empiric IV Ceftriaxone 03/08-03/11 -Urine culture with no growth -Ceftriaxone discontinued Assessment & Plan (03/19/2024 1:17 PM DESKTOP OPERATOR): Valdez catheter removed by RN post procedure [...] Assessment & Plan (03/11/2024 1:52 PM CDT): Valdez catheter removed by RN [...] 03/07/2024 Assessment & Plan (04/03/2024 10:53 AM DESKTOP OPERATOR): Acute delirium on chronic memory loss -ID recommended [facility] given falls at home and unclear baseline mental status -Unable to perform MRI in setting of temporary pacemaker -CT head w/contrast (03/08) with no acute intracranial abnormality -Delirium improved post anesthesia -Delirium and fall precautions -PT/OT-patient walking the halls with his walker with staff -remains to have VPO in place Assessment & Plan (04/02/2024 12:53 PM DESKTOP OPERATOR): Acute delirium on chronic memory loss -ID recommended [facility] given falls at home and unclear baseline mental status -Unable to perform MRI in setting of temporary pacemaker -CT head w/contrast (03/08) with no acute intracranial abnormality -Delirium improved post anesthesia -Delirium and fall precautions -PT/OT-patient walking the halls with his walker and PCT today Assessment & Plan (04/01/2024 2:52 PM DESKTOP OPERATOR): Acute delirium on chronic memory loss -ID recommended [facility] given falls at home and unclear baseline mental status -Unable to perform MRI in setting of temporary pacemaker -CT head w/contrast (03/08) with no acute intracranial abnormality -Delirium improved post anesthesia -Delirium and fall precautions Assessment & Plan (03/31/2024 9:39 AM DESKTOP OPERATOR): Acute delirium on chronic memory loss -ID recommended [facility] given falls at home and unclear baseline mental status -Unable to perform MRI in setting of temporary pacemaker -CT head w/contrast (03/08) with no acute intracranial abnormality -Delirium improved post anesthesia -Delirium and fall precautions Assessment & Plan (03/30/2024 3:19 PM DESKTOP OPERATOR): Acute delirium on chronic memory loss -ID recommended [facility] given falls at home and unclear baseline mental status -Unable to perform MRI in setting of temporary pacemaker -CT head w/contrast (03/08) with no acute intracranial abnormality -Delirium improved post anesthesia -Delirium and fall precautions Assessment & Plan (03/28/2024 8:58 AM DESKTOP OPERATOR): Acute delirium on chronic memory loss -ID recommended [facility] given falls at home and unclear baseline mental status -Unable to perform MRI in setting of temporary pacemaker -CT head w/contrast (03/08) with no acute intracranial abnormality -Delirium improved post anesthesia -Delirium and fall precautions Assessment & Plan (03/26/2024 3:54 PM DESKTOP OPERATOR): Acute delirium on chronic memory loss -ID recommended [facility] given falls at home and unclear baseline mental status -Unable to perform MRI in setting of temporary pacemaker -CT head w/contrast (03/08) with no acute intracranial abnormality -Delirium improved post anesthesia -Continue VPO -Delirium and fall precautions Assessment & Plan (03/25/2024 2:28 PM DESKTOP OPERATOR): Acute delirium on chronic memory loss -ID recommended [facility] given falls at home and unclear baseline mental status -Unable to perform MRI in setting of temporary pacemaker -CT head w/contrast (03/08) with no acute intracranial abnormality -Delirium improved post anesthesia -Continue VPO -Delirium and fall precautions Assessment & Plan (03/24/2024 8:43 AM DESKTOP OPERATOR): Acute delirium on chronic memory loss -ID recommended [facility] given falls at home and unclear baseline mental status -Unable to perform MRI in setting of temporary pacemaker -CT head w/contrast (03/08) with no acute intracranial abnormality -Delirium improved post anesthesia -Continue VPO -Delirium and fall precautions Assessment & Plan (03/23/2024 1:58 PM DESKTOP OPERATOR): Acute delirium on chronic memory loss -ID recommended [facility] given falls at home and unclear baseline mental status -Unable to perform MRI in setting of temporary pacemaker -CT head w/contrast (03/08) with no acute intracranial abnormality -Delirium improved post anesthesia -Continue VPO -Delirium and fall precautions Assessment & Plan (03/22/2024 12:54 PM DESKTOP OPERATOR): Acute delirium on chronic memory loss -ID recommended [facility] given falls at home and unclear baseline mental status -Unable to perform MRI in setting of temporary pacemaker -CT head w/contrast (03/08) with no acute intracranial abnormality -Delirium improved post anesthesia -Continue VPO -Delirium and fall precautions Assessment & Plan (03/21/2024 10:27 AM DESKTOP OPERATOR): Acute delirium on chronic memory loss -ID recommended [facility] given falls at home and unclear baseline mental status -Unable to perform MRI in setting of temporary pacemaker -CT head w/contrast (03/08) with no acute intracranial abnormality -Delirium improved post anesthesia -Continue VPO -Delirium and fall precautions Assessment & Plan (03/20/2024 11:28 AM DESKTOP OPERATOR): Acute delirium on chronic memory loss -ID recommended [facility] given falls at home and unclear baseline mental status -Unable to perform MRI in setting of temporary pacemaker -CT head w/contrast (03/08) with no acute intracranial abnormality -Delirium improved post anesthesia -Continue VPO -Delirium and fall precautions Assessment & Plan (03/19/2024 1:17 PM DESKTOP OPERATOR): Acute delirium on chronic memory loss -ID recommended [facility] given falls at home and unclear baseline mental status -Unable to perform MRI in setting of temporary pacemaker -CT head w/contrast (03/08) with no acute intracranial abnormality -Delirium improved post anesthesia -Continue VPO -Delirium and fall precautions Assessment & Plan (03/18/2024 1:04 PM CDT): Acute delirium on chronic memory loss -ID recommended [facility] given falls at home and unclear baseline mental status -Unable to perform MRI in setting of temporary pacemaker -CT head w/contrast (03/08) with no acute intracranial abnormality -Delirium improved post anesthesia -Continue 1:1 sitter -Delirium and fall precautions Assessment & Plan (03/17/2024 8:46 AM CDT): Acute delirium on chronic memory loss -ID recommended STAFF MIDWIFE imaging given falls at home and unclear baseline mental status -Unable to perform MRI in setting of temporary pacemaker -CT head w/contrast (03/08) with no acute intracranial abnormality -Delirium improved post anesthesia -Continue 1:1 sitter -Delirium and fall precautions Assessment & Plan (03/16/2024 9:35 AM CDT): Acute delirium on chronic memory loss -ID recommended [employer] [facility]IFE imaging given falls at home and unclear baseline mental status -Unable to perform MRI in setting of temporary pacemaker -CT head w/contrast (03/08) with no acute intracranial abnormality -Delerium improved post anesthesia -Continue 1:1 sitter -Delirium and Fall precautions Assessment & Plan (03/14/2024 12:04 PM CDT): Acute delirium on chronic memory loss -ID recommended [employer] [facility] imaging given falls at home and unclear baseline mental status -Unable to perform MRI in setting of temporary pacemaker -CT head w/contrast (03/08) with no acute intracranial abnormality -Delerium improved post anesthesia -Continue 1:1 sitter -Delirium and Fall precautions Assessment & Plan (03/13/2024 9:26 AM CDT): Acute delirium on chronic memory loss -ID recommended [employer] imaging given falls at home and unclear baseline mental status -Unable to perform MRI in setting of temporary pacemaker -CT head w/contrast (03/08) with no acute intracranial abnormality -Delerium improved post anesthesia -Continue 1:1 sitter -Delirium and Fall precautions Assessment & Plan (03/12/2024 3:53 PM CDT): Acute delirium on chronic memory loss -ID recommended [employer] [facility] imaging given falls at home and unclear baseline mental status -Unable to perform MRI in setting of temporary pacemaker -CT head w/contrast (03/08) with no acute intracranial abnormality -Continue 1:1 sitter -Delirium and Fall precautions Assessment & Plan (03/11/2024 2:04 PM CDT): -ID recommended [employer] [facility] imaging given falls at home and unclear [...] at this time -per ID, please obtain [employer] imaging given falls at home and unclear [...] at this time -per ID, please obtain [employer] imaging given falls at home and unclear [...] for 1:1 sitter -per ID, please obtain [employer] imaging given falls at home and unclear baseline mental status, there is concern for STAFF MIDWIFE infection -unable to perform MRI in setting of temporary pacer, will obtain CT head w/ contrast Assessment & Plan (03/07/2024 12:08 PM CDT): -cont home donepezil -monitor for delirium and falls -hold trazodone and ramelteon tonight in setting of increased confusion x7 days -recent need for 1:1 sitter Bloodstream infection associ ated with cardiovascular device ([facility]) 03/03/2024 Assessment & Plan (03/13/2024 11:23 AM CDT): Patient is a 83 y.o. man with history of prosthetic aortic valve, PPM (Feb 2022) and recent admission for MRSA bacteremia at [facility] who was admitted on 02/29/2024 due to [...] had multiple days of therapeutic vancomycin at [facility]. Fortunately, prosthetic aortic valve did not appear [...] trileaflet aortic valve. Head CT without acute STAFF MIDWIFE findings. Results: Blood cultures 02/28: MRSA 2 of 2 Blood cultures 03/01: NG Blood cultures 03/02: NG Blood cultures [...] Bio[employer] in 2009. ECHO in follow up, Eliquis and SBE. Adjustment and management of cardiac pacemaker 1 Bradycardia 01/26/2022 Overview (01/26/2022): Added automatically from request for surgery [id number] Assessment & Plan (02/17/2022 9:33 AM CDT): [...] 07/16/2020 Assessment & Plan (04/05/2024 9:09 AM DESKTOP OPERATOR): Acute delirium on chronic memory loss -See acute delirium for A&P -Improved since anesthesia and pt cooperative but only oriented to person/place-unclear what patient's true baseline is (PCP office notes mention memory loss) -Could consider increasing Aricept to 10mg upon discharge Assessment & Plan (04/02/2024 12:51 PM DESKTOP OPERATOR): Acute delirium on chronic memory loss -See acute delirium for A&P -Improved since anesthesia and pt cooperative but only oriented to person/place-unclear what patient's true baseline is (PCP office notes mention memory loss) -Could consider increasing Aricept to 10mg upon discharge Assessment & Plan (04/01/2024 2:51 PM DESKTOP OPERATOR): Acute delirium on chronic memory loss -See acute delirium for A&P -Improved since anesthesia and pt cooperative but only oriented to person/place-unclear what patient's true baseline is (PCP office notes mention memory loss) -Could consider increasing Aricept to 10mg upon discharge Assessment & Plan (03/31/2024 9:41 AM DESKTOP OPERATOR): Acute delirium on chronic memory loss -See acute delirium for A&P -Improved since anesthesia and pt cooperative but only oriented to person/place-unclear what patient's true baseline is (PCP office notes mention memory loss) -Could consider increasing Aricept to 10mg upon discharge Assessment & Plan (03/30/2024 3:21 PM DESKTOP OPERATOR): Acute delirium on chronic memory loss -See acute delirium for A&P -Improved since anesthesia and pt cooperative but only oriented to person/place-unclear what patient's true baseline is (PCP office notes mention memory loss) -Could consider increasing Aricept to 10mg upon discharge Assessment & Plan (03/29/2024 10:34 AM DESKTOP OPERATOR): Acute delirium on chronic memory loss -See acute delirium for A&P -Improved since anesthesia and pt cooperative but only oriented to person/place-unclear what patient's true baseline is (PCP office notes mention memory loss) -could consider increasing Aricept to 10mg upon discharge Assessment & Plan (03/26/2024 3:55 PM DESKTOP OPERATOR): Acute delirium on chronic memory loss -See acute delirium for A&P -Improved since anesthesia and pt cooperative but only oriented to person/place-unclear what patient's true baseline is (PCP office notes mention memory loss) -Restart Trazodone if increased agitation Assessment & Plan (03/25/2024 2:28 PM DESKTOP OPERATOR): Acute delirium on chronic memory loss -See acute delirium for A&P -Improved since anesthesia and pt cooperative but only oriented to person/place-unclear what patient's true baseline is (PCP office notes mention memory loss) -Restart Trazodone if increased agitation Assessment & Plan (03/24/2024 8:46 AM DESKTOP OPERATOR): Acute delirium on chronic memory loss -See acute delirium for A&P -Improved since anesthesia and pt cooperative but only oriented to person/place-unclear what patient's true baseline is (PCP office notes mention memory loss) -Restart Trazodone if increased agitation Assessment & Plan (03/23/2024 2:07 PM DESKTOP OPERATOR): Acute delirium on chronic memory loss -See acute delirium for A&P -Improved since anesthesia and pt cooperative but only oriented to person/place-unclear what patient's true baseline is (PCP office notes mention memory loss) -Restart Trazodone if increased agitation Assessment & Plan (03/22/2024 12:56 PM DESKTOP OPERATOR): Acute delirium on chronic memory loss -See acute delirium for A&P -Improved since anesthesia and pt cooperative but only oriented to person/place-unclear what patient's true baseline is (PCP office notes mention memory loss) -Restart Trazodone if increased agitation Assessment & Plan (03/20/2024 11:30 AM DESKTOP OPERATOR): Acute delirium on chronic memory loss -See acute delirium for A&P -Improved since anesthesia and pt cooperative but only oriented to person/place-unclear what patient's true baseline is (PCP office notes mention memory loss) -Restart Trazodone if increased agitation Assessment & Plan (03/19/2024 1:17 PM DESKTOP OPERATOR): Acute delirium on chronic memory loss -See [...] qday Assessment & Plan (07/16/2020 12:33 PM DESKTOP OPERATOR): Will check screening labs. 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 Denies dream enactment. + Memory loss PLMD (periodic limb movement disorder) 8 Overview (03/04/2018): Not associated with arousal Atrial fibrillation (CMS/HCC) 02/10/2018 Assessment & Plan (04/03/2024 10:51 AM DESKTOP OPERATOR): History of persistent A. Fib on Eliquis -Currently rate controlled -Continue metoprolol XL 25 mg daily -Continue Eliquis 5 mg BID -Telemetry monitoring Assessment & Plan (04/02/2024 12:51 PM DESKTOP OPERATOR): History of persistent A. Fib on Eliquis -Currently rate controlled -Continue metoprolol XL 25 mg daily -Continue Eliquis 5 mg BID -Telemetry monitoring Assessment & Plan (04/01/2024 2:52 PM DESKTOP OPERATOR): History of persistent A. Fib on Eliquis -Currently rate controlled -Continue metoprolol Xl 25 mg daily -Continue Eliquis 5 mg BID -Telemetry monitoring Assessment & Plan (03/31/2024 9:40 AM DESKTOP OPERATOR): History of persistent A. Fib on Eliquis -Currently SB/NSR, temp pacer set VVI at 50 -Resumed Eliquis per EP, hold prior to PPM placement and resume based on EP recs -Telemetry monitoring Assessment & Plan (03/30/2024 3:20 PM DESKTOP OPERATOR): History of persistent A. Fib on Eliquis -Currently SB/NSR, temp pacer set VVI at 50 -Resumed Eliquis per EP, hold prior to PPM placement and resume based on EP recs -Telemetry monitoring Assessment & Plan (03/29/2024 10:29 AM DESKTOP OPERATOR): History of persistent A. Fib on Eliquis -Currently SB/NSR, temp pacer set VVI at 50 -Resumed Eliquis per EP, given ok to continue Eliquis with pending pacer placement -Telemetry monitoring Assessment & Plan (03/26/2024 3:54 PM DESKTOP OPERATOR): History of persistent A. Fib on Eliquis -Currently SB/NSR, temp pacer set VVI at 50 -Resumed Eliquis per EP -Appreciate EP recs regarding AC prior to placement of PPM -Telemetry monitoring Assessment & Plan (03/25/2024 2:27 PM DESKTOP OPERATOR): History of persistent A. Fib on Eliquis -Currently SB/NSR, temp pacer set VVI at 50 -Resumed Eliquis per EP -Appreciate EP recs regarding AC prior to placement of PPM -Telemetry monitoring Assessment & Plan (03/24/2024 8:43 AM DESKTOP OPERATOR): History of persistent A. Fib on Eliquis -Currently SB/NSR, temp pacer set VVI at 50 -Resumed Eliquis per EP -Appreciate EP recs regarding AC prior to placement of PPM -Telemetry monitoring Assessment & Plan (03/23/2024 2:06 PM DESKTOP OPERATOR): History of persistent A. Fib on Eliquis -Currently SB/NSR, temp pacer set VVI at 50 -Resumed Eliquis per EP -Appreciate EP recs regarding AC prior to placement of PPM -Telemetry monitoring Assessment & Plan (03/22/2024 12:56 PM DESKTOP OPERATOR): History of persistent A. Fib on Eliquis -Currently V-paced, VVI at 50 -Per EP, resume Eliquis today -Appreciate EP recs regarding holding Eliquis prior to placement of PPM -Telemetry monitoring Assessment & Plan (03/21/2024 10:26 AM DESKTOP OPERATOR): History of persistent A. Fib on Eliquis -Currently V-paced, VVI at 50 -Holding Eliquis for procedure -Hold therapeutic anticoagulation given bleeding risk s/p PPM and lead extraction -SQ heparin for DVT ppx (Ok per EP) -Telemetry monitoring Assessment & Plan (03/20/2024 11:29 AM DESKTOP OPERATOR): History of persistent A. Fib on Eliquis. -S/p temporary pacemaker placement on 03/06 and removal of PPM on 03/07 -Currently V-paced, HR 70s -Holding Eliquis for procedure -Hold therapeutic anticoagulation given bleeding risk s/p PPM and lead extraction -SQ heparin for DVT ppx (Ok per EP) -Telemetry monitoring Assessment & Plan (03/19/2024 1:14 PM DESKTOP OPERATOR): History of persistent A. Fib on Eliquis. [...] daily. Assessment & Plan (07/16/2020 12:32 PM DESKTOP OPERATOR): Stable to see Dr. Nina this week. Of note his heart rate today was 56 when I examine the patient Low back pain 06/06/2015 Syncope 12/24/2014 Chronic coronary artery disease 01/26/2014 Assessment & Plan (04/05/2024 9:09 AM DESKTOP OPERATOR): CAD s/p CABG 2009 (3V GOLDMAN-LAD, SVG-OM, SVG-RCA) performed at the time of Ao Valve Surgery -Currently denies chest pain -Continue aspirin, statin and niacin Assessment & Plan (04/02/2024 12:51 PM DESKTOP OPERATOR): CAD s/p CABG 2009 (3V GOLDMAN-LAD, SVG-OM, SVG-RCA) performed at the time of Ao Valve Surgery -Currently denies chest pain -Continue aspirin, statin and niacin Assessment & Plan (04/01/2024 2:51 PM DESKTOP OPERATOR): CAD s/p CABG 2009 (3V GOLDMAN-LAD, SVG-OM, SVG-RCA) performed at the time of Ao Valve Surgery -Currently denies chest pain -Continue aspirin, statin and niacin Assessment & Plan (03/30/2024 3:20 PM DESKTOP OPERATOR): CAD s/p CABG 2009 (3V GOLDMAN-LAD, SVG-OM, SVG-RCA) performed at the time of Ao Valve Surgery -Currently denies chest pain -Continue aspirin, statin, and niacin Assessment & Plan (03/27/2024 10:04 AM DESKTOP OPERATOR): CAD s/p CABG 2009 (3V GOLDMAN-LAD, SVG-OM, SVG-RCA) performed at the time of Ao Valve Surgery -Currently denies chest pain -Continue aspirin, statin, and niacin Assessment & Plan (03/26/2024 3:55 PM DESKTOP OPERATOR): CAD s/p CABG 2009 (3V GOLDMAN-LAD, SVG-OM, SVG-RCA) performed at the time of Ao Valve Surgery -Currently denies chest pain -Continue aspirin, statin, and niacin Assessment & Plan (03/25/2024 2:28 PM DESKTOP OPERATOR): CAD s/p CABG 2009 (3V GOLDMAN-LAD, SVG-OM, SVG-RCA) performed at the time of Ao Valve Surgery -Currently denies chest pain -Continue aspirin, statin, and niacin Assessment & Plan (03/24/2024 8:45 AM DESKTOP OPERATOR): CAD s/p CABG 2009 (3V GOLDMAN-LAD, SVG-OM, SVG-RCA) performed at the time of Ao Valve Surgery -Currently denies chest pain -Continue aspirin, statin, and niacin Assessment & Plan (03/23/2024 2:06 PM DESKTOP OPERATOR): CAD s/p CABG 2009 (3V GOLDMAN-LAD, SVG-OM, SVG-RCA) performed at the time of Ao Valve Surgery -Currently denies chest pain -Continue aspirin, statin, and niacin Assessment & Plan (03/22/2024 12:56 PM DESKTOP OPERATOR): CAD s/p CABG 2009 (3V GOLDMAN-LAD, SVG-OM, SVG-RCA) performed at the time of Ao Valve Surgery -Currently denies chest pain -Continue aspirin, statin, and niacin Assessment & Plan (03/20/2024 11:29 AM DESKTOP OPERATOR): CAD s/p CABG 2009 (3V GOLDMAN-LAD, SVG-OM, SVG-RCA) performed at the time of Ao Valve Surgery -Currently denies chest pain -Continue aspirin, statin, and niacin Assessment & Plan (03/19/2024 1:14 PM DESKTOP OPERATOR): CAD s/p CABG 2009 (3V GOLDMAN-LAD, SVG-OM, [...] well. Assessment & Plan (07/16/2020 12:32 PM DESKTOP OPERATOR): Stable no evidence of any chest pain Hypercholesterolemia 01/26/2014 Assessment & Plan (01/06/2024 2:57 PM CDT): Stable Assessment & Plan (09/27/2023 3:32 PM CDT): On atorvastatin. Assessment & Plan (02/17/2022 7:57 AM CDT): Continue home atorvastatin and niacin Assessment & Plan (02/16/2022 9:35 PM CDT): Continue home atorvastatin and niacin Assessment & Plan (07/16/2020 12:32 PM DESKTOP OPERATOR): Lipid reviewed Hypertension 01/26/2014 Assessment & Plan (04/03/2024 10:51 AM DESKTOP OPERATOR): BP at goal -Continue home metoprolol XL 25 mg daily Assessment & Plan (04/02/2024 12:51 PM DESKTOP OPERATOR): BP at goal -Continue home metoprolol XL 25 mg daily Assessment & Plan (04/01/2024 2:51 PM DESKTOP OPERATOR): BP at goal -Continue home metoprolol XL 25 mg daily Assessment & Plan (03/31/2024 9:41 AM DESKTOP OPERATOR): BP at goal -Continue home metoprolol XL 25 mg daily -Currently holding lisinopril due to rise in S cr and hyperkalemia - consider DC'ing today Assessment & Plan (03/30/2024 3:20 PM DESKTOP OPERATOR): BP at goal -Continue home metoprolol XL 25 mg daily -Currently holding lisinopril due to rise in S cr and hyperkalemia Assessment & Plan (03/29/2024 10:32 AM DESKTOP OPERATOR): BP at goal -Continue home metoprolol XL 25 mg daily -currently holding lisinopril due to rise in S cr and hyperkalemia Assessment & Plan (03/26/2024 3:55 PM DESKTOP OPERATOR): BP at goal -Continue home metoprolol XL -Holding lisinopril due to rise in Cr and hyperkalemia Assessment & Plan (03/25/2024 2:28 PM DESKTOP OPERATOR): BP at goal -Continue home metoprolol XL -Holding lisinopril due to rise in Cr and hyperkalemia Assessment & Plan (03/24/2024 8:46 AM DESKTOP OPERATOR): BP at goal -Continue home metoprolol XL -Hold lisinopril due to rise in Cr and hyperkalemia Assessment & Plan (03/23/2024 2:06 PM DESKTOP OPERATOR): BP at goal -Continue home metoprolol XL -Hold lisinopril due to rise in Cr and hyperkalemia Assessment & Plan (03/22/2024 12:56 PM DESKTOP OPERATOR): BP at goal -Continue home metoprolol XL -Hold lisinopril due to rise in Cr and hyperkalemia Assessment & Plan (03/21/2024 10:25 AM DESKTOP OPERATOR): BP at goal -Continue home metoprolol XL -Hold lisinopril due to rise in Cr and hyperkalemia Assessment & Plan (03/20/2024 11:29 AM DESKTOP OPERATOR): BP at goal -Continue home metoprolol XL -Hold lisinopril due to rise in Cr and hyperkalemia Assessment & Plan (03/19/2024 1:14 PM DESKTOP OPERATOR): BP at goal -Continue home metoprolol XL [...] qday Assessment & Plan (07/16/2020 12:32 PM DESKTOP OPERATOR): Blood pressure at target History of coronary [...] 03/17/2024 Assessment & Plan (03/27/2024 10:13 AM DESKTOP OPERATOR): Recently presented to [facility] with fevers and altered mental status. 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 The patient was instructed to come to [facility]. [facility] PPM implanted 02/16/2022. -Pacemaker dependent--s/p [...] (03/17/2024 8:28 AM CDT): Recently presented to [facility] with fevers and altered mental status. 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 The patient was instructed to come to [facility]. [facility] PPM implanted 02/16/2022. -Pacemaker dependent--s/p [...] (03/16/2024 9:36 AM CDT): Recently presented to [facility] with fevers and altered mental status. 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 The patient was instructed to come to [facility]. [facility] PPM implanted 02/16/2022. -Pacemaker dependent--s/p [...] (03/15/2024 10:00 AM CDT): Recently presented to [facility] with fevers and altered mental status. 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 The patient was instructed to come to [facility]. [facility] PPM implanted 02/16/2022. -Pacemaker dependent--s/p [...] (03/14/2024 12:02 PM CDT): Recently presented to [facility] with fevers and altered mental status. 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 The patient was instructed to come to [facility]. [facility] PPM implanted 02/16/2022. -Pacemaker dependent--s/p [...] (03/12/2024 3:55 PM CDT): Recently presented to [facility] with fevers and altered mental status. 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 The patient was instructed to come to [facility]. [facility] PPM implanted 02/16/2022. -Pacemaker dependent--s/p [...] (03/11/2024 2:03 PM CDT): Recently presented to [facility] with fevers and altered mental status. 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 The patient was instructed to come to [facility]. [facility] PPM implanted 02/16/2022. -Pacemaker dependent--s/p [...] (03/10/2024 4:52 PM CDT): Recently presented to [facility] with fevers and altered mental status. There he was found to have MRSA bacteremia and was treated for 8 days with IV abx (presumably vanc) then sent to SNF to receive further doses, however the nursing did not have the abx. The patient was instructed to come to [facility]. [facility] PPM implanted 02/16/2022. -s/p 8+ days of vanc at OSH -obtain JOSEPH images from OSH--requested multiple times--JOSEPH performed at [facility] on 03/07 during procedure -pacemaker dependent--temporary pacer [...] -ID anticipating 6 weeks of IV antibiotics -STAFF MIDWIFE imaging as elsewhere -timing of new PPM placement pending culture clearance Assessment & Plan (03/09/2024 1:30 PM CDT): Recently presented to [facility] with fevers and altered mental status. There he was found to have MRSA bacteremia and was treated for 8 days with IV abx (presumably vanc) then sent to SNF to receive further doses, however the nursing did not have the abx. The patient was instructed to come to [facility]. [facility] PPM implanted 02/16/2022. -s/p 8+ days of vanc at OSH -obtain JOSEPH images from OSH--requested multiple times--JOSEPH performed at [facility] on 03/07 during procedure -pacemaker dependent--temporary pacer [...] -ID anticipating 6 weeks of IV antibiotics -STAFF MIDWIFE imaging as elsewhere -timing of new PPM placement pending culture clearance Assessment & Plan (03/08/2024 4:05 PM CDT): Recently presented to [facility] with fevers and altered mental status. There he was found to have MRSA bacteremia and was treated for 8 days with IV abx (presumably vanc) then sent to SNF to receive further doses, however the nursing did not have the abx. The patient was instructed to come to [facility]. [facility] PPM implanted 02/16/2022. -s/p 8+ days of vanc at OSH -obtain JOSEPH images from OSH--requested multiple times--JOSEPH performed at [facility] on 03/07 during procedure -pacemaker dependent - [...] -ID anticipating 6 weeks of IV antibiotics -STAFF MIDWIFE imaging as elsewhere Assessment & Plan (03/07/2024 12:55 PM CDT): Recently presented to [facility] with fevers and altered mental status. There he was found to have MRSA bacteremia and was treated for 8 days with IV abx (presumably vanc) then sent to SNF to receive further doses, however the nursing did not have the abx.The patient was instructed to come to [facility]. [facility] PPM implanted 02/16/2022. -s/p 8+ [...] (03/06/2024 10:06 AM CDT): Recently presented to [facility] with fevers and altered mental status. There he was found to have MRSA bacteremia and was treated for 8 days with IV abx (presumably vanc) then sent to SNF to receive further doses, however the nursing did not have the abx.The patient was instructed to come to [facility]. [facility] PPM implanted 02/16/2022. -s/p 8+ [...] (03/05/2024 10:52 AM CDT): Recently presented to [facility] with fevers and altered mental status. There he was found to have MRSA bacteremia and was treated for 8 days with IV abx (presumably vanc) then sent to SNF to receive further doses, however the nursing did not have the abx.The patient was instructed to come to [facility]. [facility] PPM implanted 02/16/2022. -s/p 8+ [...] (03/04/2024 10:03 AM CDT): -Recently presented to [facility] with fevers and altered mental status. There he was found to have MRSA bacteremia and was treated for 8 days with IV abx (presumably vanc) then sent to SNF to receive further doses, however the nursing did not have the abx.The patient was instructed to come to [facility]. 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 -Appears non-toxic, [...] procedure. -having difficulty finding JOSEPH images in [employer] -tele showing 100% paced, underlying rhythm afib 40's--will need temporary pacer between extraction and re-implant Assessment & Plan (03/03/2024 11:12 AM CDT): -Recently presented to [facility] with fevers and altered mental status. There he was found to have MRSA bacteremia and was treated for 8 days with IV abx (presumably vanc) then sent to SNF to receive further doses, however the nursing did not have the abx.The patient was instructed to come to [facility]. 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 -Appears non-toxic, hemodynamically stable -s/p 8+ days of vanc at OSH -blood cultures with MRSA -continue vancomycin--vanc trough prior to fourth dose -ID consulted, appreciate assistance -CTS consult for possible extraction--will need to hold eliquis when timing has been confirmed -having difficulty finding JOSEPH images in [employer] -tele showing 100% paced, underlying rhythm afib 40's--will need temporary pacer between extraction and re-implant Assessment & Plan (03/02/2024 10:28 AM CDT): -Recently presented to [facility] with fevers and altered mental status. There he was found to have MRSA bacteremia and was treated for 8 days with IV abx (presumably vanc) then sent to SNF to receive further doses, however the nursing did not have the abx.The patient was instructed to come to [facility]. 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 -Appears non-toxic, hemodynamically stable -s/p 8+ days of vanc at OSH -blood cultures with MRSA -continue vancomycin--vanc trough prior to fourth dose -ID consulted, appreciate assistance -CTS consult for possible extraction--will need to hold eliquis when timing has been confirmed -JOSEPH images in [employer] -tele showing 100% paced, underlying rhythm afib 40's--will need temporary pacer between extraction and re-implant Assessment & Plan (03/01/2024 11:38 AM CDT): -Recently presented to [facility] with fevers and altered mental status. There he was found to have MRSA bacteremia and was treated for 8 days with IV abx (presumably vanc) then sent to SNF to receive further doses, however the nursing did not have the abx.The patient was instructed to come to [facility]. 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 -Appears non-toxic, hemodynamically stable -s/p 8+ days of vanc at OSH -blood cultures with MRSA -continue Vanc/cefe for now, vanc trough prior to third dose -ID consulted, appreciate assistance -CTS consult for possible extraction--may need to hold eliquis -Will obtain JOSEPH images -tele showing 100% paced Assessment & Plan (02/29/2024 11:23 AM CDT): Awaiting medical records from [facility] and/or [facility] ([place], [place]) -[employer] pacer -blood cultures pending -EP consult pending -tele showing 100% paced Encounters Date Type Department Care Team Description 06/05/2024 Orders Only [facility] [address] [place] [address] Scanning, Provider 06/02/2024 Documentation [facility] Infectious Diseases [address] [place] [address] [place] [phone] Kristina Rehman NP Facility needing abx adjustment 06/01/2024 Telephone [facility] Infectious Diseases [address] [place] [address] [phone] Amy Jiang, FADI 05/31/2024 3:59 PM DESKTOP OPERATOR - 05/31/2024 11:59 PM DESKTOP OPERATOR Hospital Encounter [facility] [address] [place], [place] [phone] Emergency, Room R Discharge Disposition: Discharge to home or self care 05/19/2024 Documentation [facility] Infectious Diseases [address] [place] [address] [phone] Bradley Quintero MD 05/13/2024 2:48 AM DESKTOP OPERATOR - 05/31/2024 3:19 PM DESKTOP OPERATOR Hospital Encounter [facility] [address] [place] [address] Tashi Thurston MD Geltman, Edward M., MD Stitziel, Tashi Moran MD PhD [facility], MD Anjana Hull, MD Angela Roe, Henok Craen MD Discharge Disposition: Discharge to SNF 05/12/2024 Documentation Internal Medicine Tashi Thurston MD Transfer Acceptance 05/12/2024 Orders Only [facility] [id number] [place] [address] Robert Whitlock MD 05/11/2024 Orders Only [facility] Medical Group Cardiology [address] [place] [address] Deepti Whaley MD 05/08/2024 Telephone [facility] [address] [phone] Robert Whitlock MD 05/06/2024 Orders Only [facility] [address] [phone] Robert Whitlock MD 05/05/2024 Orders Only [facility] [address] [phone] Robert Whitlock MD 05/04/2024 Orders Only [facility] [address] [phone] Robert Whitlock MD 05/01/2024 Telephone [facility] [address] [phone] Robert Whitlock MD 05/01/2024 [facility] [address] [phone] Robert Whitlock MD [facility] 04/28/2024 10:40 AM DESKTOP OPERATOR Office Visit [facility] Infectious Diseases [address] [place] [address] Rosa Strong, SAVANNAH 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 [address] [place] [address] Bradycardia (Primary Dx); Fitting or adjustment of cardiac pacemaker; Paroxysmal atrial fibrillation (CMS/HCC) (HCC); Sinus node dysfunction (CMS/HCC) (HCC) 03/30/2024 7:43 AM [facility] Anesthesia Event [facility] Electrophysiology Lab 1 [place] [address] Chen Lainez MD Wiethuchter, Kelli P., NP 03/30/2024 7:30 AM [facility] - 03/30/2024 10:25 AM [facility] Surgery [facility] Electrophysiology Lab 1 [place] [address] Jayro Phan MD PhD IMPLANT DUAL CHAMBER PPM SYSTEM W/ DUAL ELECTRODES (GEN AND LEADS, NEW OR REPLACE) [id number] 03/30/2024 Orders Only [facility] Radiology [address] [place] [phone] May Lambert RN 03/30/2024 Orders Only [facility] Cardiology [address] [place] [address] Medicine 8th [place] [address] [place] [phone] Kelsie Guillen NP Fitting or adjustment of cardiac pacemaker (Primary Dx) 03/20/2024 1:00 PM [facility] - 03/20/2024 3:00 PM [facility] Electrophysiology Lab [address] [place] [phone] Franklyn Worthington MD INSERT TEMPORARY PACEMAKER (PPM) SINGLE LEAD [id number] [address] Temp perm IJ 03/17/2024 1:09 PM CDT Anesthesia Event [facility] V[facility] [address] [place] [phone] Little Mcgovern MD Bergesch, Christine Elizabeth, CRNA 03/14/2024 Documentation [facility] Infectious Diseases [address] [place] [address] [address] [place] [phone] Rahel Dubon, SAVANNAH OPAT 02/29/2024 4:15 AM CDT - 04/05/2024 5:15 PM DESKTOP OPERATOR Hospital Encounter [facility] 1 [place] [address] Rhiannon Powell MD Heath, MD Juni Hogue, Shane Ferguson MD Bloodstream infection associated with cardiovascular device, subsequent encounter (Primary Dx); Sinus node dysfunction (CMS/HCC) (HCC); Atrial fibrillation (CMS/HCC) (HCC) [I48.91]; CAD (coronary artery disease); Atrial fibrillation (CMS/HCC) (HCC); Complete heart block (CMS/HCC) (HCC) [I44.2]; Bradycardia; Preoperative testing; 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 Discharge Disposition: Discharge to SNF from Last 3 Months Immunizations Name Administration Dates Next Due Td, adsorbed 07/14/2014 Surgical History Surgery Date Site/Laterality Comments CARDIAC SURGERY CORONARY ARTERY BYPASS GRAFT 05/17/2009 - 05/16/2010 x3 vessel AORTIC VALVE REPLACEMENT 05/17/2009 - 05/16/2010 COLONOSCOPY CENTRAL LINE PLACEMENT > 5 YEARS 03/30/2024 N/A Medical History Medical History Date Comments Hypertension Hypertension Hyperlipidemia Acute delirium 03/07/2024 Family History Medical History Relation Name Comments Coronary artery disease Mother Kadie nary Artery Bypass Graft; Anesthesia problems Neg Hx Relation Name Status Comments Mother Alive Social History Tobacco Use Types Packs/Day Years Used Date Smoking Tobacco: Former Cigarettes Q uit: 1998 Passive Smoke Exposure: Never Smokeless Tobacco: Never Tobacco Cessation:Counseling Given: Not Answered Alcohol Use Standard Drinks/Week Comments Yes 0 (1 standard drink = 0.6 oz pur e alcohol) [employer] Answer Date Recorded In the past 12 months has [employer], oil, or water [employer] threatened to shut off services in your [...] answer 05/31/2024 How often do you attend [facility] or taoism services? Patient unable to answer 05/31/2024 Do you belong to any clubs o r organizations such as oriental orthodox groups, unions, fraternal or athletic groups, or [...] any time in the past [address] [facility], were you homeless or living in a group home (including now)? Patient unable to answer 05/31/2024 Personal Safety Answer Date Recorded Have you ever been in or are you currently in a harmful physical or emotional relationship or is someone making you feel afraid or unsafe? Denies 05/13/2024 Sex and Gender Information Value Date Recorded Sex Assigned at Not on file Legal Sex Male 1:22 AM DESKTOP OPERATOR Gender Identity Not on file Sexual Orientation Not on file Obstetrics History Last Filed Vital Signs Vital Sign Reading Time Taken Comments Blood Pressure 94/54 05/31/2024 2:59 PM DESKTOP OPERATOR Pulse 60 05/31/2024 2:59 PM DESKTOP OPERATOR Temperature 36.6 ??C (97.9 ??F) 05/31/2024 8:18 AM CS T Respiratory Rate 18 05/31/2024 8:18 AM DESKTOP OPERATOR Oxygen Saturation 100% 05/31/2024 2:59 PM DESKTOP OPERATOR Inhaled Oxygen Concentration - - Weight 56 kg (123 lb 6.4 oz) 05/31/2024 4:48 AM DESKTOP OPERATOR Height 182.9 cm (6') 05/13/2024 2:50 AM DESKTOP OPERATOR Body Mass Index 16.74 05/13/2024 2:50 AM DESKTOP OPERATOR Plan of Treatment Health Maintenance Due Date Last Done Comments Depression Screening 1940 Hepatitis B Screening 09/02/1958 Well Visit 65+ 09/02/2004 DTaP/Tdap/Td Vaccine (1 - Tdap) 07/15/2014 07/14/2014 Covid-19 Vaccine (4 - 2023-2 5 season) 2024 03/20/2021, 08/06/2020, 07/09/2020 Influenza Vaccine (#1) 2024 Zoster Vaccine (1 of 2) 06/20/2024 Post poned from 09/02/1989 (Patient declined, but will receive in the future) Pneumococcal vaccine 65+ (1 of 2 - PCV) 06/21/2024 Postponed from 09/02 (Patient declined, but will receive in the future) Fall Risk Assessment 05/31/2025 05/31/2024 Medical Devices Implanted Type Area Event Producer Device Identifier Shelf Expiration Date Model / Serial / Lot [employer] Tendril Sts 6fr 52cm Is-1 Connector Active Fixation Bipolar Soft [id number]/52 - [id number] - [id number] Implanted:Qty : 1 on 03/20/2024 by Franklyn Worthington MD at [facility] Lead Right: Ventricle [employer] 04/15/20262087TC/52 / [id number] / [employer] Active Fixation Steroid Eluting Latex Free Sterile Right Atrium Ventricle Ultipace 58cm Tev1240/58 - [id number] - [id number] Implanted:Qty : 1 on 03/30/2024 by Jayro Phan MD PhD at [facility] Lead Right: Ventricle [employer] 02/13/2027 [id number]/5 8 / [id number] / [id number] [employer] Active Fixation Steroid Eluting Latex Free Sterile Right Atrium Ventricle Ultipace 52cm Div8378/52 - [id number] - [id number] Implanted:Qty : 1 on 03/30/2024 by Jayro Phan MD PhD at [facility] Lead Right: Atria [employer] 01/14/2027 [id number] /5 2 / [id number] / [employer] Assurity Mri [id number] Chamber Is-1 Connector Thk6mm Pacemaker [id number] - [id number] - [id number] Implanted:Qty : 1 on 03/20/2024 by Franklyn Worthington MD at [facility] Pacemaker [employer] 07/14/2025 [id number] / [id number] / [employer] Assurity Mri [id number] Chamber Is-1 Connector Thk6mm Pacemaker [id number] - [id number] - [id number] Implanted:Qty : 1 on 03/30/2024 by Jayro Phan MD PhD at [facility] Pacemaker Left: Chest Wall [employer] 07/14/2025 [id number] / [id number] / Explanted Type Area Event Producer Device Identifier Shelf Expiration Date Model / Serial / Lot [employer] Tendril Sts 6fr 46cm Is-1 Connector Bipolar Active Fixation /46 - [id number] - [id number] Implanted:Qty : 1 on 02/16/2022 by Shane Alfredo MD at [facility] Explanted:Qty : 1 on 03/07/2024 by Leland Fitzpatrick MD at [facility] Lead Right: Atria [employer] 12/14/20242087TC/46 / [id number] / [id number] [employer] Tendril Sts 6fr 52cm Is-1 Connector Active Fixation Bipolar Soft - [id number] - [id number] Implanted:Qty : 1 on 02/16/2022 by Shane Alfredo MD at [facility] Explanted:Qty : 1 on 03/07/2024 by Leland Fitzpatrick MD at [facility] Lead Right: Ventricle [employer] 12/14/2024/ / [id number] / [id number] [employer] Tendril Sts 6fr 65cm Is-1 Bipolar Connector Optim Insulation - [id number] - [id number] Implanted:Qty : 1 on 03/06/2024 by Deedee Bran MD at [facility] Explanted:Qty : 1 on 03/07/2024 by Leland Fitzpatrick MD at [facility] Lead Right: Ventricle [employer] 04/15/2026 / [id number] / [id number] [employer] Assurity Mri [id number] 2 Chamber Is-1 Connector Thk6mm Pacemaker [id number] - [id number] - [id number] Implanted:Qty : 1 on 02/16/2022 by Shane Alfredo MD at [facility] Explanted:Qty : 1 on 03/07/2024 by Leland Fitzpatrick MD at [facility] Pacemaker Right: Chest Wall [employer] 07/15/2023 [id number] / [id number] / [id number] Procedures Procedure Name Priority Date/Time Associated Diagnosis Comments SCAN - LABS 06/05/2024 8:43 AM DESKTOP OPERATOR EGFR Routine 05/31/2024 5:13 AM DESKTOP OPERATOR DIFFERENTIAL AUTO Routine 05/31/2024 5:1 3 AM DESKTOP OPERATOR COMPREHENSIVE METABOLIC PANEL Routine 05/31/2024 5:13 AM DESKTOP OPERATOR CBC WITH AUTO DIFFERENTIAL Routine 05/31/2024 5:13 AM DESKTOP OPERATOR CBC WITHOUT DIFFERENTIAL Timed 05/29/2024 6:59 PM DESKTOP OPERATOR CREATINE KINASE (CK), TOTAL Timed 05/28/2024 8:41 PM DESKTOP OPERATOR EGFR Routine 05/26/2024 10:21 PM DESKTOP OPERATOR DIFFERENTIAL AUTO Routine 05/26/2024 10:21 PM DESKTOP OPERATOR CBC WITH AUTO DIFFERENTIAL Routine 05/26/2024 10:21 PM DESKTOP OPERATOR MAGNESIUM Routine 05/26/2024 10:21 PM DESKTOP OPERATOR COMPREHENSIVE METABOLIC PANEL Routine 05/26/2024 10:21 PM DESKTOP OPERATOR EGFR Routine 05/25/2024 9:24 PM DESKTOP OPERATOR DIFFERENTIAL AUTO Routine 05/25/2024 9:2 4 PM DESKTOP OPERATOR CREATINE KINASE (CK), TOTAL Timed 05/25/2024 9:24 PM DESKTOP OPERATOR CBC WITH AUTO DIFFERENTIAL Routine 05/25/2024 9:24 PM DESKTOP OPERATOR MAGNESIUM Routine 05/25/2024 9:24 PM DESKTOP OPERATOR COMPREHENSIVE METABOLIC PANEL Routine 05/25/2024 9:24 PM DESKTOP OPERATOR EGFR Routine 05/24/2024 8:43 PM DESKTOP OPERATOR DIFFERENTIAL AUTO Routine 05/24/2024 8:4 3 PM DESKTOP OPERATOR CBC WITH AUTO DIFFERENTIAL Routine 05/24/2024 8:43 PM DESKTOP OPERATOR MAGNESIUM Routine 05/24/2024 8:43 PM DESKTOP OPERATOR COMPREHENSIVE METABOLIC PANEL Routine 05/24/2024 8:43 PM DESKTOP OPERATOR EGFR Routine 05/23/2024 9:27 PM DESKTOP OPERATOR DIFFERENTIAL AUTO Routine 05/23/2024 9:2 7 PM DESKTOP OPERATOR CBC WITH AUTO DIFFERENTIAL Routine 05/23/2024 9:27 PM DESKTOP OPERATOR MAGNESIUM Routine 05/23/2024 9:27 PM DESKTOP OPERATOR COMPREHENSIVE METABOLIC PANEL Routine 05/23/2024 9:27 PM DESKTOP OPERATOR EGFR Routine 05/22/2024 8:31 PM DESKTOP OPERATOR CREATINE KINASE (CK), TOTAL Routine 05/22/2024 8:31 PM DESKTOP OPERATOR DIFFERENTIAL AUTO Routine 05/22/2024 8:3 1 PM DESKTOP OPERATOR CBC WITH AUTO DIFFERENTIAL Routine 05/22/2024 8:31 PM DESKTOP OPERATOR MAGNESIUM Routine 05/22/2024 8:31 PM DESKTOP OPERATOR COMPREHENSIVE METABOLIC PANEL Routine 05/22/2024 8:31 PM DESKTOP OPERATOR EGFR Routine 05/21/2024 8:10 PM DESKTOP OPERATOR DIFFERENTIAL AUTO Routine 05/21/2024 8:1 0 PM DESKTOP OPERATOR CBC WITH AUTO DIFFERENTIAL Routine 05/21/2024 8:10 PM DESKTOP OPERATOR MAGNESIUM Routine 05/21/2024 8:10 PM DESKTOP OPERATOR COMPREHENSIVE METABOLIC PANEL Routine 05/21/2024 8:10 PM DESKTOP OPERATOR EGFR Routine 05/20/2024 8:16 PM DESKTOP OPERATOR DIFFERENTIAL AUTO Routine 05/20/2024 8:1 6 PM DESKTOP OPERATOR CBC WITH AUTO DIFFERENTIAL Routine 05/20/2024 8:16 PM DESKTOP OPERATOR MAGNESIUM Routine 05/20/2024 8:16 PM DESKTOP OPERATOR COMPREHENSIVE METABOLIC PANEL Routine 05/20/2024 8:16 PM DESKTOP OPERATOR CREATINE KINASE (CK), TOTAL Routine 05/19/2024 8:19 PM DESKTOP OPERATOR EGFR Routine 05/19/2024 8:19 PM DESKTOP OPERATOR DIFFERENTIAL AUTO Routine 05/19/2024 8:1 9 PM DESKTOP OPERATOR CBC WITH AUTO DIFFERENTIAL Routine 05/19/2024 8:19 PM DESKTOP OPERATOR MAGNESIUM Routine 05/19/2024 8:19 PM DESKTOP OPERATOR COMPREHENSIVE METABOLIC PANEL Routine 05/19/2024 8:19 PM DESKTOP OPERATOR XR CHEST 1 VIEW IP Routine 05/19/2024 4:57 PM DESKTOP OPERATOR EGFR Routine 05/18/2024 10:09 PM DESKTOP OPERATOR DIFFERENTIAL AUTO Routine 05/18/2024 10:09 PM DESKTOP OPERATOR CBC WITH AUTO DIFFERENTIAL Routine 05/18/2024 10:09 PM DESKTOP OPERATOR MAGNESIUM Routine 05/18/2024 10:09 PM DESKTOP OPERATOR COMPREHENSIVE METABOLIC PANEL Routine 05/18/2024 10:09 PM DESKTOP OPERATOR PET/CT FDG SKULL TO THIGH ED Urgent/IP Urgent 05/18/2024 10:21 AM DESKTOP OPERATOR EGFR Routine 05/17/2024 9:34 PM DESKTOP OPERATOR DIFFERENTIAL AUTO Routine 05/17/2024 9:3 4 PM DESKTOP OPERATOR CBC WITH AUTO DIFFERENTIAL Routine 05/17/2024 9:34 PM DESKTOP OPERATOR MAGNESIUM Routine 05/17/2024 9:34 PM DESKTOP OPERATOR COMPREHENSIVE METABOLIC PANEL Routine 05/17/2024 9:34 PM DESKTOP OPERATOR EGFR Routine 05/16/2024 10:50 PM DESKTOP OPERATOR DIFFERENTIAL AUTO Routine 05/16/2024 10:50 PM DESKTOP OPERATOR CREATINE KINASE (CK), TOTAL Timed 05/16/2024 10:50 PM DESKTOP OPERATOR CBC WITH AUTO DIFFERENTIAL Routine 05/16/2024 10:50 PM DESKTOP OPERATOR MAGNESIUM Routine 05/16/2024 10:50 PM DESKTOP OPERATOR COMPREHENSIVE METABOLIC PANEL Routine 05/16/2024 10:50 PM DESKTOP OPERATOR TRANSTHORACIC ECHO (TTE) COMPLETE W DOPPLER/CF W CONTRAST Routine 05/16/2024 11:47 AM DESKTOP OPERATOR EGFR Routine 05/15/2024 9:39 PM DESKTOP OPERATOR DIFFERENTIAL AUTO Routine 05/15/2024 9:3 9 PM DESKTOP OPERATOR CBC WITH AUTO DIFFERENTIAL Routine 05/15/2024 9:39 PM DESKTOP OPERATOR MAGNESIUM Routine 05/15/2024 9:39 PM DESKTOP OPERATOR COMPREHENSIVE METABOLIC PANEL Routine 05/15/2024 9:39 PM DESKTOP OPERATOR EGFR Routine 05/14/2024 10:49 PM DESKTOP OPERATOR DIFFERENTIAL AUTO Routine 05/14/2024 10:49 PM DESKTOP OPERATOR CBC WITH AUTO DIFFERENTIAL Routine 05/14/2024 10:49 PM DESKTOP OPERATOR MAGNESIUM Routine 05/14/2024 10:49 PM DESKTOP OPERATOR COMPREHENSIVE METABOLIC PANEL Routine 05/14/2024 10:49 PM DESKTOP OPERATOR POCT GLUCOSE DEVICE Routine 05/14/2024 12:18 PM DESKTOP OPERATOR BLOOD CULTURE Routine 05/14/2024 9:52 AM DESKTOP OPERATOR BLOOD CULTURE Routine 05/14/2024 9:52 AM DESKTOP OPERATOR EGFR Routine 05/13/2024 9:09 PM DESKTOP OPERATOR DIFFERENTIAL AUTO Routine 05/13/2024 9:0 9 PM DESKTOP OPERATOR CBC WITH AUTO DIFFERENTIAL Routine 05/13/2024 9:09 PM DESKTOP OPERATOR MAGNESIUM Routine 05/13/2024 9:09 PM DESKTOP OPERATOR COMPREHENSIVE METABOLIC PANEL Routine 05/13/2024 9:[address] HEAD WO CONTRAST IP Routine 05/13/2024 8 :04 PM DESKTOP OPERATOR XR CHEST PA LATERAL 2 VIEWS IP Routine 05/13/2024 8:30 AM DESKTOP OPERATOR EGFR Routine 05/13/2024 4:41 AM DESKTOP OPERATOR DIFFERENTIAL AUTO Routine 05/13/2024 4:4 1 AM DESKTOP OPERATOR CREATINE KINASE (CK), TOTAL Timed 05/13/2024 4:41 AM DESKTOP OPERATOR TYPE AND SCREEN Timed 05/13/2024 4:41 AM DESKTOP OPERATOR CBC WITH AUTO DIFFERENTIAL Routine 05/13/2024 4:41 AM DESKTOP OPERATOR MAGNESIUM Routine 05/13/2024 4:41 AM DESKTOP OPERATOR COMPREHENSIVE METABOLIC PANEL Routine 05/13/2024 4:41 AM DESKTOP OPERATOR BLOOD CULTURE Routine 05/13/2024 4:41 AM DESKTOP OPERATOR BLOOD CULTURE Routine 05/13/2024 4:41 AM DESKTOP OPERATOR ECG 12-LEAD Routine 05/13/2024 3:49 AM DESKTOP OPERATOR SCAN - RADIOLOGY/IMAGING 05/12/2024 11:04 AM DESKTOP OPERATOR CARDIOLOGY DOCUMENT SCAN 05/08/2024 3:35 PM DESKTOP OPERATOR SCAN - RADIOLOGY/IMAGING 05/08/2024 6:27 AM DESKTOP OPERATOR SCAN - RADIOLOGY/IMAGING 05/06/2024 4:44 PM DESKTOP OPERATOR CARDIOLOGY DOCUMENT SCAN Routine 05/05/2024 1:20 PM DESKTOP OPERATOR SCAN - RADIOLOGY/IMAGING 05/05/2024 11:06 AM DESKTOP OPERATOR SCAN - LABS 05/04/2024 6:06 PM DESKTOP OPERATOR SCAN - RADIOLOGY/IMAGING 05/04/2024 5:26 PM DESKTOP OPERATOR SCAN - LABS 05/04/2024 4:59 PM DESKTOP OPERATOR DEVICE CHECK - IN OFFICE Routine 04/18/2024 11:07 AM DESKTOP OPERATOR Fitting or adjustment of cardiac pacemaker CBC WITH AUTO DIFFERENTIAL Timed 04/05/2024 2:33 AM DESKTOP OPERATOR DIFFERENTIAL AUTO Timed 04/05/2024 2:3 3 AM DESKTOP OPERATOR EGFR Routine 04/05/2024 2:33 AM DESKTOP OPERATOR HEPATIC FUNCTION PANEL Timed 2:33 AM DESKTOP OPERATOR CREATINE KINASE (CK), TOTAL Timed 04/05/2024 2:33 AM DESKTOP OPERATOR CBC WITHOUT DIFFERENTIAL Timed 04/05/2024 2:33 AM DESKTOP OPERATOR BASIC METABOLIC PANEL Routine 04/05/2024 2:33 AM DESKTOP OPERATOR EGFR Routine 04/04/2024 4:18 AM DESKTOP OPERATOR BASIC METABOLIC PANEL Routine 04/04/2024 4:18 AM DESKTOP OPERATOR EGFR Routine 04/03/2024 6:01 AM DESKTOP OPERATOR CBC WITHOUT DIFFERENTIAL Timed 04/03/2024 6:01 AM DESKTOP OPERATOR BASIC METABOLIC PANEL Routine 04/03/2024 6:01 AM DESKTOP OPERATOR EGFR Routine 04/02/2024 3:56 AM DESKTOP OPERATOR BASIC METABOLIC PANEL Routine 04/02/2024 3:56 AM DESKTOP OPERATOR EGFR Routine 04/01/2024 3:30 AM DESKTOP OPERATOR BASIC METABOLIC PANEL Routine 04/01/2024 3:30 AM DESKTOP OPERATOR XR CHEST PA LATERAL 2 VIEWS IP Routine 03/31/2024 3:37 PM DESKTOP OPERATOR CBC WITHOUT DIFFERENTIAL STAT 03/31/2024 9:09 AM DESKTOP OPERATOR EGFR Routine 03/31/2024 4:41 AM DESKTOP OPERATOR CBC WITHOUT DIFFERENTIAL Timed 03/31/2024 4:41 AM DESKTOP OPERATOR BASIC METABOLIC PANEL Routine 03/31/2024 4:41 AM DESKTOP OPERATOR ECG 12-LEAD Routine 03/31/2024 1:44 AM DESKTOP OPERATOR CENTRAL LINE PLACEMENT > 5 YEARS IP Routine 03/30/2024 3:58 PM DESKTOP OPERATOR XR CHEST 1 VIEW IP Routine 03/30/2024 11:43 AM DESKTOP OPERATOR REMOVE/EXTRACT ONE PACEMAKER LEAD Routine 03/30/2024 10:57 AM DESKTOP OPERATOR Bradycardia IMPLANT DUAL CHAMBER PPM SYSTEM W/ DUAL ELECTRODES (GEN AND LEADS, NEW OR REPLACE) Routine 03/30/2024 10:57 AM DESKTOP OPERATOR Bradycardia EGFR Routine 03/30/2024 3:36 AM DESKTOP OPERATOR BASIC METABOLIC PANEL Routine 03/30/2024 3:36 AM DESKTOP OPERATOR BASIC METABOLIC PANEL Timed 03/29/2024 3:21 AM DESKTOP OPERATOR EGFR Timed 03/29/2024 3:21 AM DESKTOP OPERATOR HEPATIC FUNCTION PANEL Timed 3:21 AM DESKTOP OPERATOR CREATINE KINASE (CK), TOTAL Timed 03/29/2024 3:21 AM DESKTOP OPERATOR CBC WITHOUT DIFFERENTIAL Timed 03/29/2024 3:21 AM DESKTOP OPERATOR EGFR Routine 03/28/2024 3:21 AM DESKTOP OPERATOR BASIC METABOLIC PANEL Routine 03/28/2024 3:21 AM DESKTOP OPERATOR EGFR Routine 03/27/2024 4:53 AM DESKTOP OPERATOR CBC WITHOUT DIFFERENTIAL Timed 03/27/2024 4:53 AM DESKTOP OPERATOR BASIC METABOLIC PANEL Routine 03/27/2024 4:53 AM DESKTOP OPERATOR EGFR Routine 03/26/2024 5:54 AM DESKTOP OPERATOR BASIC METABOLIC PANEL Routine 03/26/2024 5:54 AM DESKTOP OPERATOR POCT GLUCOSE DEVICE Routine 03/25/2024 5 :02 PM DESKTOP OPERATOR POCT GLUCOSE DEVICE Routine 03/25/2024 7 :18 AM DESKTOP OPERATOR EGFR Routine 03/25/2024 5:24 AM DESKTOP OPERATOR BASIC METABOLIC PANEL Routine 03/25/2024 5:24 AM DESKTOP OPERATOR CBC WITH AUTO DIFFERENTIAL Timed 03/24/2024 3:36 AM DESKTOP OPERATOR DIFFERENTIAL AUTO Timed 03/24/2024 3:3 6 AM DESKTOP OPERATOR EGFR Routine 03/24/2024 3:36 AM DESKTOP OPERATOR CBC WITHOUT DIFFERENTIAL Timed 03/24/2024 3:36 AM DESKTOP OPERATOR BASIC METABOLIC PANEL Routine 03/24/2024 3:36 AM DESKTOP OPERATOR EGFR Routine 03/23/2024 5:03 AM DESKTOP OPERATOR BASIC METABOLIC PANEL Routine 03/23/2024 5:03 AM DESKTOP OPERATOR HEPATIC FUNCTION PANEL Timed 5:00 AM DESKTOP OPERATOR CREATINE KINASE (CK), TOTAL Timed 03/22/2024 5:00 AM DESKTOP OPERATOR CBC WITHOUT DIFFERENTIAL Timed 03/22/2024 5:00 AM DESKTOP OPERATOR XR CHEST 1 VIEW IP Routine 03/21/2024 5:03 AM DESKTOP OPERATOR EGFR Routine 03/21/2024 3:34 AM DESKTOP OPERATOR CBC WITHOUT DIFFERENTIAL Routine 03/21/2024 3:34 AM DESKTOP OPERATOR BASIC METABOLIC PANEL Routine 03/21/2024 3:34 AM DESKTOP OPERATOR BLOOD CULTURE Routine 03/21/2024 3:34 AM DESKTOP OPERATOR BLOOD CULTURE Routine 03/21/2024 3:34 AM DESKTOP OPERATOR TEMPOARY PACING INSERT/REPLACE LEAD Routine 03/20/2024 2:40 PM DESKTOP OPERATOR CAD (coronary artery disease) Atrial fibrillation (CMS/HCC) (HCC) EGFR Routine 03/20/2024 3:17 AM DESKTOP OPERATOR CREATINE KINASE (CK), TOTAL Routine 03/20/2024 3:17 AM DESKTOP OPERATOR CBC WITHOUT DIFFERENTIAL Routine 03/20/2024 3:17 AM DESKTOP OPERATOR BASIC METABOLIC PANEL Routine 03/20/2024 3:17 AM DESKTOP OPERATOR BLOOD CULTURE Routine 03/20/2024 3:17 AM DESKTOP OPERATOR BLOOD CULTURE Routine 03/20/2024 3:17 AM DESKTOP OPERATOR EGFR Routine 03/19/2024 3:35 AM DESKTOP OPERATOR CBC WITHOUT DIFFERENTIAL Routine 03/19/2024 3:35 AM DESKTOP OPERATOR BASIC METABOLIC PANEL Routine 03/19/2024 3:35 AM DESKTOP OPERATOR BLOOD CULTURE Routine 03/19/2024 3:35 AM DESKTOP OPERATOR BLOOD CULTURE Routine 03/19/2024 3:35 AM DESKTOP OPERATOR EGFR Timed 03/18/2024 1:36 PM CDT POTASSIUM, [...] * SCAN - LABS (06/05/2024 8:43 AM DESKTOP OPERATOR) us Provider Scanning Final Result * eGFR (05/31/2024 5:13 AM DESKTOP OPERATOR) eGFR 64 >=60 mL/min/1. 73 m2 Comment: [...] last reviewed 2021. Blood 05/31/2024 5:13 AM DESKTOP OPERATOR 05/31/2024 6:26 AM DESKTOP OPERATOR Henok Miller MD LAB BLOOD ORDERABLES Final Result [facility] Department [place] [address] * Differential, auto (05/31/2024 5:13 AM DESKTOP OPERATOR) Neutrophil abs 3.0 1.5 - 6.5 K/cumm Imm gran abs 0.0 0.0 - 0.1 K/cumm [facility] Lymphocyte abs 1.4 0.8 - 3.3 K/cumm [facility] Monocyte abs 0.7 0.2 - 0.8 K/cumm [facility] Eosinophil abs 0.3 0.0 - 0.5 K/cumm [facility] Basophil abs 0.0 0.0 - 0.1 K/cumm [facility] Neutrophil pct 55.2 % [facility] Comment: Interpretive Data Percent cell count reference ranges are not reported, since discordance with absolute values may lead to misinterpretation of CBC data. Current Interpretive Data was last revised on 2017. Imm gran pct 0.6 % [facility] Comment: Interpretive Data Percent cell count reference ranges are not reported, since discordance with absolute values may lead to misinterpretation of CBC data. Current Interpretive Data was last revised on 2017. Lymphocyte pct 25.4 % [facility] Comment: Interpretive Data Percent cell count reference ranges are not reported, since discordance with absolute values may lead to misinterpretation of CBC data. Current Interpretive Data was last revised on 2017. Monocyte pct 13.2 % [facility] Comment: Interpretive Data Percent cell count reference ranges are not reported, since discordance with absolute values may lead to misinterpretation of CBC data. Current Interpretive Data was last revised on 2017. Eosinophil pct 5.2 % [facility] Comment: Interpretive Data Percent cell count reference ranges are not reported, since discordance with absolute values may lead to misinterpretation of CBC data. Current Interpretive Data was last revised on 2017. Basophil pct 0.4 % [facility] Comment: Interpretive Data Percent cell count reference ranges are not reported, since discordance with absolute values may lead to misinterpretation of CBC data. Current Interpretive Data was last revised on 2017. Blood 05/31/2024 5:13 AM DESKTOP OPERATOR 05/31/2024 6:26 AM DESKTOP OPERATOR Henok Miller MD LAB BLOOD ORDERABLES Final Result [facility] [place] [address] * (ABNORMAL) CBC with auto differential (05/31/2024 5:13 AM DESKTOP OPERATOR) Pathologist [facility] WBC 5.4 3.8 - 9.9 K/cumm Hgb 8.6(L) 13.0 - 17.5 g/dL [facility] Hct 27.9(L) 38.9 - 50.3 % [facility] Plt 109(L) 150 - 400 K/cumm [facility] MPV 12.2 9.1 - 12.3 fL [facility] RBC 3.28(L) 4.30 - 5.80 M/cumm [facility] MCV 85.1 81.3 - 96.4 fL [facility] MCH 26.2(L) 27.1 - 33.3 pg [facility] MCHC 30.8(L) 32.3 - 35.7 g/dL [facility] RDW CV 15.4(H) 11.1 - 14.9 % [facility] RDW SD 48.4(H) 35.7 - 48.1 fL [facility] NRBC abs 0.00 0.00 - 0.01 K/cumm [facility] Blood 05/31/2024 5:13 AM DESKTOP OPERATOR 05/31/2024 6:26 AM DESKTOP OPERATOR Henok Miller MD LAB BLOOD ORDERABLES Final Result [facility] Department [place] [address] * (ABNORMAL) Comprehensive metabolic panel (05/31/2024 5:13 AM DESKTOP OPERATOR) Pathologist [facility] Sodium 141 135 - 145 mmol/L Potassium, pl 4.1 3.3 - 4.9 mmol/L [facility] Chloride 109 97 - 110 mmol/L [facility] CO2 26 22 - 32 mmol/L [facility] Anion gap 6 2 - 15 mmol/L [facility] BUN 17 6 - 25 mg/dL [facility] Creatinine 1.13 0.80 - 1.30 mg/dL [facility] Glucose 75 70 - 199 mg/dL [facility] Comment: Interpretive Data Fasting glucose >/= 126 [...] 2022. Calcium 8.4(L) 8.5 - 10.3 mg/dL [facility] Bilirubin, total 0.3 0.1 - 1.2 mg/dL [facility] Protein, pl 6.5 6.5 - 8.5 g/dL [facility] Albumin 2.9(L) 3.5 - 5.0 g/dL [facility] Alk phos 68 40 - 130 Units/L [facility] ALT 13 7 - 55 Units/L [facility] AST 21 10 - 50 Units/L [facility] Blood 05/31/2024 5:13 AM DESKTOP OPERATOR 05/31/2024 6:26 AM DESKTOP OPERATOR us Henok Miller MD LAB BLOOD ORDERABLES Final Result [facility] Department of Laboratories [place], [place] [id number] * (ABNORMAL) CBC without differential (05/29/2024 6:59 PM DESKTOP OPERATOR) [facility] WBC 4.9 3.8 - 9.9 K/cumm Hgb 8.4(L) 13.0 - 17.5 g/dL [facility] Hct 26.4(L) 38.9 - 50.3 % [facility] Plt 98(L) 150 - 400 K/cumm [facility] MPV 11.9 9.1 - 12.3 fL [facility] RBC 3.10(L) 4.30 - 5.80 M/cumm [facility] MCV 85.2 81.3 - 96.4 fL [facility] MCH 27.1 27.1 - 33.3 pg [facility] MCHC 31.8(L) 32.3 - 35.7 g/dL [facility] RDW CV 15.6(H) 11.1 - 14.9 % [facility] RDW SD 48.3(H) 35.7 - 48.1 fL [facility] NRBC abs 0.00 0.00 - 0.01 K/cumm [facility] Blood 05/29/2024 6:59 PM DESKTOP OPERATOR 05/29/2024 8:18 PM DESKTOP OPERATOR us Marysol Yeung MD LAB BLOOD ORDERABLES Final Resu lt Performing Organization Address City/[facility]/ZIP Co de Phone Number [facility] Department [place] [employer] [place] [address] * (ABNORMAL) Creatine kinase (CK), total (05/28/2024 8:41 PM DESKTOP OPERATOR) Pathologist [facility] CK 22(L) 40 - 300 Units/L Blood 05/28/2024 8:41 PM DESKTOP OPERATOR 05/28/2024 9:23 PM DESKTOP OPERATOR us Sandip Juarez MD LAB BLOOD ORDERABLES Final Result [facility] [employer] [address] * (ABNORMAL) eGFR (05/26/2024 10:21 PM DESKTOP OPERATOR) Pathologist [facility] eGFR 56(L) >=60 mL/min/1. 73 m2 Comment: [...] reviewed 2021. Blood 05/26/2024 10:2 1 PM DESKTOP OPERATOR 05/26/2024 11:20 PM DESKTOP OPERATOR us Tashi Thurston MD LAB BLOOD ORDERABLES Final R esult [facility] Department [place] [address] * Differential, auto (05/26/2024 10:21 PM DESKTOP OPERATOR) Neutrophil abs 4.7 1.5 - 6.5 K/cumm Imm gran abs 0.1 0.0 - 0.1 K/cumm [facility] Lymphocyte abs 0.8 0.8 - 3.3 K/cumm [facility] Monocyte abs 0.7 0.2 - 0.8 K/cumm [facility] Eosinophil abs 0.1 0.0 - 0.5 K/cumm [facility] Basophil abs 0.0 0.0 - 0.1 K/cumm [facility] Neutrophil pct 74.0 % [facility] Comment: Interpretive Data Percent cell count reference ranges are not reported, since discordance with absolute values may lead to misinterpretation of CBC data. Current Interpretive Data was last revised on 2017. Imm gran pct 0.8 % [facility] Comment: Interpretive Data Percent cell count reference ranges are not reported, since discordance with absolute values may lead to misinterpretation of CBC data. Current Interpretive Data was last revised on 2017. Lymphocyte pct 12.7 % [facility] Comment: Interpretive Data Percent cell count reference ranges are not reported, since discordance with absolute values may lead to misinterpretation of CBC data. Current Interpretive Data was last revised on 2017. Monocyte pct 11.3 % [facility] Comment: Interpretive Data Percent cell count reference ranges are not reported, since discordance with absolute values may lead to misinterpretation of CBC data. Current Interpretive Data was last revised on 2017. Eosinophil pct 1.0 % [facility] Comment: Interpretive Data Percent cell count reference ranges are not reported, since discordance with absolute values may lead to misinterpretation of CBC data. Current Interpretive Data was last revised on 2017. Basophil pct 0.2 % [facility] Comment: Interpretive Data Percent cell count reference ranges are not reported, since discordance with absolute values may lead to misinterpretation of CBC data. Current Interpretive Data was last revised on 2017. Blood 05/26/2024 10:2 1 PM DESKTOP OPERATOR 05/26/2024 11:20 PM DESKTOP OPERATOR us Tashi Thurston MD LAB BLOOD ORDERABLES Final R esult [facility] [place] [address] * (ABNORMAL) CBC with auto differential (05/26/2024 10:21 PM DESKTOP OPERATOR) WBC 6.3 3.8 - 9.9 K/cumm Hgb 8.7(L) 13.0 - 17.5 g/dL [facility] Hct 27.4(L) 38.9 - 50.3 % [facility] Plt 113(L) 150 - 400 K/cumm [facility] MPV 11.8 9.1 - 12.3 fL [facility] RBC 3.20(L) 4.30 - 5.80 M/cumm [facility] MCV 85.6 81.3 - 96.4 fL [facility] MCH 27.2 27.1 - 33.3 pg [facility] MCHC 31.8(L) 32.3 - 35.7 g/dL [facility] RDW CV 15.7(H) 11.1 - 14.9 % [facility] RDW SD 49.6(H) 35.7 - 48.1 fL [facility] NRBC abs 0.00 0.00 - 0.01 K/cumm [facility] Blood 05/26/2024 10:2 1 PM DESKTOP OPERATOR 05/26/2024 11:20 PM DESKTOP OPERATOR us Tashi Thurston MD LAB BLOOD ORDERABLES Final R esult [facility] Department [place] [employer] [place] [address] * Magnesium (05/26/2024 10:21 PM DESKTOP OPERATOR) Pathologist [facility] Magnesium 2.0 1.4 - 2.5 mg/dL Blood 05/26/2024 10:2 1 PM DESKTOP OPERATOR 05/26/2024 11:20 PM DESKTOP OPERATOR us Tashi Thurston MD LAB BLOOD ORDERABLES Final R esult [facility] Department [place] [address] * (ABNORMAL) Comprehensive metabolic panel (05/26/2024 10:21 PM DESKTOP OPERATOR) Sodium 141 135 - 145 mmol/L Potassium, pl 4.3 3.3 - 4.9 mmol/L [facility] Chloride 105 97 - 110 mmol/L [facility] CO2 27 22 - 32 mmol/L [facility] Anion gap 9 2 - 15 mmol/L [facility] BUN 18 6 - 25 mg/dL [facility] Creatinine 1.27 0.80 - 1.30 mg/dL [facility] Glucose 90 70 - 199 mg/dL [facility] Comment: Interpretive Data Fasting glucose >/= 126 [...] 2022. Calcium 8.9 8.5 - 10.3 mg/dL [facility] Bilirubin, total 0.3 0.1 - 1.2 mg/dL [facility] Protein, pl 6.6 6.5 - 8.5 g/dL [facility] Albumin 2.9(L) 3.5 - 5.0 g/dL [facility] Alk phos 71 40 - 130 Units/L [facility] ALT 10 7 - 55 Units/L [facility] AST 19 10 - 50 Units/L [facility] Blood 05/26/2024 10:2 1 PM DESKTOP OPERATOR 05/26/2024 11:20 PM DESKTOP OPERATOR us Tashi Thurston MD LAB BLOOD ORDERABLES Final R esult [facility] [place] [address] * (ABNORMAL) eGFR (05/25/2024 9:24 PM DESKTOP OPERATOR) eGFR 57(L) >=60 mL/min/1. 73 m2 Comment: [...] last reviewed 2021. Blood 05/25/2024 9:24 PM DESKTOP OPERATOR 05/25/2024 9:59 PM DESKTOP OPERATOR us Tashi Thurston MD LAB BLOOD ORDERABLES Final R esult [facility] Department [place] [address] * (ABNORMAL) Differential, auto (05/25/2024 9:24 PM DESKTOP OPERATOR) Pathologist [facility] Neutrophil abs 5.3 1.5 - 6.5 K/cumm Imm gran abs 0.1 0.0 - 0.1 K/cumm [facility] Lymphocyte abs 1.6 0.8 - 3.3 K/cumm [facility] Monocyte abs 0.9(H) 0.2 - 0.8 K/cumm [facility] Eosinophil abs 0.4 0.0 - 0.5 K/cumm [facility] Basophil abs 0.0 0.0 - 0.1 K/cumm [facility] Neutrophil pct 64.3 % [facility] Comment: Interpretive Data Percent cell count reference ranges are not reported, since discordance with absolute values may lead to misinterpretation of CBC data. Current Interpretive Data was last revised on 2017. Imm gran pct 0.6 % [facility] Comment: Interpretive Data Percent cell count reference ranges are not reported, since discordance with absolute values may lead to misinterpretation of CBC data. Current Interpretive Data was last revised on 2017. Lymphocyte pct 19.1 % [facility] Comment: Interpretive Data Percent cell count reference ranges are not reported, since discordance with absolute values may lead to misinterpretation of CBC data. Current Interpretive Data was last revised on 2017. Monocyte pct 11.0 % [facility] Comment: Interpretive Data Percent cell count reference ranges are not reported, since discordance with absolute values may lead to misinterpretation of CBC data. Current Interpretive Data was last revised on 2017. Eosinophil pct 4.6 % [facility] Comment: Interpretive Data Percent cell count reference ranges are not reported, since discordance with absolute values may lead to misinterpretation of CBC data. Current Interpretive Data was last revised on 2017. Basophil pct 0.4 % [facility] Comment: Interpretive Data Percent cell count reference ranges are not reported, since discordance with absolute values may lead to misinterpretation of CBC data. Current Interpretive Data was last revised on 2017. Blood 05/25/2024 9:24 PM DESKTOP OPERATOR 05/25/2024 9:46 PM DESKTOP OPERATOR us Tashi Thurston MD LAB BLOOD ORDERABLES Final R esult [facility] [place] [address] * (ABNORMAL) CBC with auto differential (05/25/2024 9:24 PM DESKTOP OPERATOR) WBC 8.2 3.8 - 9.9 K/cumm Hgb 9.2(L) 13.0 - 17.5 g/dL [facility] Hct 29.0(L) 38.9 - 50.3 % [facility] Plt 159 150 - 400 K/cumm [facility] MPV 11.4 9.1 - 12.3 fL [facility] RBC 3.42(L) 4.30 - 5.80 M/cumm [facility] MCV 84.8 81.3 - 96.4 fL [facility] MCH 26.9(L) 27.1 - 33.3 pg [facility] MCHC 31.7(L) 32.3 - 35.7 g/dL [facility] RDW CV 15.5(H) 11.1 - 14.9 % [facility] RDW SD 47.4 35.7 - 48.1 fL [facility] NRBC abs 0.00 0.00 - 0.01 K/cumm [facility] Blood 05/25/2024 9:24 PM DESKTOP OPERATOR 05/25/2024 9:46 PM DESKTOP OPERATOR us Tashi Thurston MD LAB BLOOD ORDERABLES Final R esult Performing Organization Address City/[facility]/ZIP Co de Phone Number [facility] Department [place] [employer] [place] [address] * Magnesium (05/25/2024 9:24 PM DESKTOP OPERATOR) Pathologist [facility] Magnesium 2.1 1.4 - 2.5 mg/dL Blood 05/25/2024 9:24 PM DESKTOP OPERATOR 05/25/2024 9:45 PM DESKTOP OPERATOR us Tashi Thurston MD LAB BLOOD ORDERABLES Final R esult [facility] Department [place] [address] * (ABNORMAL) Creatine kinase (CK), total (05/25/2024 9:24 PM DESKTOP OPERATOR) CK 32(L) 40 - 300 Units/L Blood 05/25/2024 9:24 PM DESKTOP OPERATOR 05/25/2024 9:45 PM DESKTOP OPERATOR Sandip Juarez MD LAB BLOOD ORDERABLES Final Result [facility] Department [place] [address] * (ABNORMAL) Comprehensive metabolic panel (05/25/2024 9:24 PM DESKTOP OPERATOR) Pathologist [facility] Sodium 140 135 - 145 mmol/L Potassium, pl 4.4 3.3 - 4.9 mmol/L [facility] Chloride 107 97 - 110 mmol/L [facility] CO2 28 22 - 32 mmol/L [facility] Anion gap 5 2 - 15 mmol/L [facility] BUN 17 6 - 25 mg/dL [facility] Creatinine 1.24 0.80 - 1.30 mg/dL [facility] Glucose 131 70 - 199 mg/dL [facility] Comment: Interpretive Data Fasting glucose >/= 126 [...] Calcium 8.9 8.5 - 10.3 mg/dL [facility] Bilirubin, total 0.2 0.1 - 1.2 mg/dL [facility] Protein, pl 6.6 6.5 - 8.5 g/dL [facility] Albumin 2.9(L) 3.5 - 5.0 g/dL [facility] Alk phos 82 40 - 130 Units/L [facility] ALT 13 7 - 55 Units/L [facility] AST 23 10 - 50 Units/L [facility] Blood 05/25/2024 9:24 PM DESKTOP OPERATOR 05/25/2024 9:45 PM DESKTOP OPERATOR us Tashi Thurston MD LAB BLOOD ORDERABLES Final R esult Performing Organization Address [facility] Co de Phone Number [facility] Department [place] [address] * (ABNORMAL) eGFR (05/24/2024 8:43 PM DESKTOP OPERATOR) eGFR 58(L) >=60 mL/min/1. 73 m2 Comment: [...] last reviewed 2021. Blood 05/24/2024 8:43 PM DESKTOP OPERATOR 05/24/2024 9:28 PM DESKTOP OPERATOR us Tashi Thurston MD LAB BLOOD ORDERABLES Final R ljult Performing Organization Address City[facility] Co de Phone Number [facility] Department [place] [address] * Differential, auto (05/24/2024 8:43 PM DESKTOP OPERATOR) Neutrophil abs 3.9 1.5 - 6.5 K/cumm Imm gran abs 0.1 0.0 - 0.1 K/cumm [facility] Lymphocyte abs 1.3 0.8 - 3.3 K/cumm [facility] Monocyte abs 0.7 0.2 - 0.8 K/cumm [facility] Eosinophil abs 0.4 0.0 - 0.5 K/cumm [facility] Basophil abs 0.0 0.0 - 0.1 K/cumm [facility] Neutrophil pct 62.0 % [facility] Comment: Interpretive Data Percent cell count reference ranges are not reported, since discordance with absolute values may lead to misinterpretation of CBC data. Current Interpretive Data was last revised on 2017. Imm gran pct 0.8 % [facility] Comment: Interpretive Data Percent cell count reference ranges are not reported, since discordance with absolute values may lead to misinterpretation of CBC data. Current Interpretive Data was last revised on 2017. Lymphocyte pct 19.7 % [facility] Comment: Interpretive Data Percent cell count reference ranges are not reported, since discordance with absolute values may lead to misinterpretation of CBC data. Current Interpretive Data was last revised on 2017. Monocyte pct 10.8 % [facility] Comment: Interpretive Data Percent cell count reference ranges are not reported, since discordance with absolute values may lead to misinterpretation of CBC data. Current Interpretive Data was last revised on 2017. Eosinophil pct 6.1 % [facility] Comment: Interpretive Data Percent cell count reference ranges are not reported, since discordance with absolute values may lead to misinterpretation of CBC data. Current Interpretive Data was last revised on 2017. Basophil pct 0.6 % [facility] Comment: Interpretive Data Percent cell count reference ranges are not reported, since discordance with absolute values may lead to misinterpretation of CBC data. Current Interpretive Data was last revised on 2017. Blood 05/24/2024 8:43 PM DESKTOP OPERATOR 05/24/2024 9:28 PM DESKTOP OPERATOR us Tashi Thurston MD LAB BLOOD ORDERABLES Final R esult Performing Organization Address [facility] Co de Phone Number [facility] Department [place] [address] * (ABNORMAL) CBC with auto differential (05/24/2024 8:43 PM DESKTOP OPERATOR) WBC 6.4 3.8 - 9.9 K/cumm Hgb 8.7(L) 13.0 - 17.5 g/dL [facility] Hct 27.8(L) 38.9 - 50.3 % [facility] Plt 156 150 - 400 K/cumm [facility] MPV 11.0 9.1 - 12.3 fL [facility] RBC 3.20(L) 4.30 - 5.80 M/cumm [facility] MCV 86.9 81.3 - 96.4 fL [facility] MCH 27.2 27.1 - 33.3 pg [facility] MCHC 31.3(L) 32.3 - 35.7 g/dL [facility] RDW CV 15.6(H) 11.1 - 14.9 % [facility] RDW SD 49.6(H) 35.7 - 48.1 fL [facility] NRBC abs 0.00 0.00 - 0.01 K/cumm [facility] Blood 05/24/2024 8:43 PM DESKTOP OPERATOR 05/24/2024 9:28 PM DESKTOP OPERATOR us Tashi Thurston MD LAB BLOOD ORDERABLES Final R esult [facility] Department [place] [address] * Magnesium (05/24/2024 8:43 PM DESKTOP OPERATOR) Pathologist [facility] Magnesium 2.1 1.4 - 2.5 mg/dL Blood 05/24/2024 8:43 PM DESKTOP OPERATOR 05/24/2024 9:28 PM DESKTOP OPERATOR us Tashi Thurston MD LAB BLOOD ORDERABLES Final R esult [facility] Department [place] [address] * (ABNORMAL) Comprehensive metabolic panel (05/24/2024 8:43 PM DESKTOP OPERATOR) Pathologist [facility] Sodium 139 135 - 145 mmol/L Potassium, pl 4.3 3.3 - 4.9 mmol/L [facility] Chloride 107 97 - 110 mmol/L [facility] CO2 29 22 - 32 mmol/L [facility] Anion gap 3 2 - 15 mmol/L [facility] BUN 15 6 - 25 mg/dL [facility] Creatinine 1.22 0.80 - 1.30 mg/dL [facility] Glucose 140 70 - 199 mg/dL [facility] Comment: Interpretive Data Fasting glucose >/= 126 [...] 2022. Calcium 8.8 8.5 - 10.3 mg/dL [facility] Bilirubin, total 0.2 0.1 - 1.2 mg/dL [facility] Protein, pl 6.2(L) 6.5 - 8.5 g/dL [facility] Albumin 2.6(L) 3.5 - 5.0 g/dL [facility] Alk phos 73 40 - 130 Units/L [facility] ALT 10 7 - 55 Units/L [facility] AST 17 10 - 50 Units/L [facility] Blood 05/24/2024 8:43 PM DESKTOP OPERATOR 05/24/2024 9:28 PM DESKTOP OPERATOR us Tashi Thurston MD LAB BLOOD ORDERABLES Final R esult Performing Organization Address [facility] Co de Phone Number JUAREZ CHAUDHARY [facility] Department [place] [address] * (ABNORMAL) eGFR (05/23/2024 9:27 PM DESKTOP OPERATOR) eGFR 58(L) >=60 mL/min/1. 73 m2 Comment: [...] last reviewed 2021. Blood 05/23/2024 9:27 PM DESKTOP OPERATOR 05/23/2024 9:49 PM DESKTOP OPERATOR us Tashi Thurston MD LAB BLOOD ORDERABLES Final R esult Performing Organization Address [facility] Co de Phone Number JUAREZ Law [facility] Department [place] [address] * Differential, auto (05/23/2024 9:27 PM DESKTOP OPERATOR) Neutrophil abs 4.3 1.5 - 6.5 K/cumm Imm gran abs 0.0 0.0 - 0.1 K/cumm [facility] Lymphocyte abs 1.5 0.8 - 3.3 K/cumm [facility] Monocyte abs 0.8 0.2 - 0.8 K/cumm [facility] Eosinophil abs 0.2 0.0 - 0.5 K/cumm [facility] Basophil abs 0.0 0.0 - 0.1 K/cumm [facility] Neutrophil pct 62.9 % [facility] Comment: Interpretive Data Percent cell count reference ranges are not reported, since discordance with absolute values may lead to misinterpretation of CBC data. Current Interpretive Data was last revised on 2017. Imm gran pct 0.6 % [facility] Comment: Interpretive Data Percent cell count reference ranges are not reported, since discordance with absolute values may lead to misinterpretation of CBC data. Current Interpretive Data was last revised on 2017. Lymphocyte pct 22.4 % [facility] Comment: Interpretive Data Percent cell count reference ranges are not reported, since discordance with absolute values may lead to misinterpretation of CBC data. Current Interpretive Data was last revised on 2017. Monocyte pct 11.2 % [facility] Comment: Interpretive Data Percent cell count reference ranges are not reported, since discordance with absolute values may lead to misinterpretation of CBC data. Current Interpretive Data was last revised on 2017. Eosinophil pct 2.6 % [facility] Comment: Interpretive Data Percent cell count reference ranges are not reported, since discordance with absolute values may lead to misinterpretation of CBC data. Current Interpretive Data was last revised on 2017. Basophil pct 0.3 % [facility] Comment: Interpretive Data Percent cell count reference ranges are not reported, since discordance with absolute values may lead to misinterpretation of CBC data. Current Interpretive Data was last revised on 2017. Blood 05/23/2024 9:27 PM DESKTOP OPERATOR 05/23/2024 9:50 PM DESKTOP OPERATOR us Tashi Thurston MD LAB BLOOD ORDERABLES Final R esult Performing Organization Address City/[facility]/ZIP Co de Phone Number [facility] Department [place] [address] * (ABNORMAL) CBC with auto differential (05/23/2024 9:27 PM DESKTOP OPERATOR) WBC 6.9 3.8 - 9.9 K/cumm Hgb 9.0(L) 13.0 - 17.5 g/dL [facility] Hct 28.6(L) 38.9 - 50.3 % [facility] Plt 175 150 - 400 K/cumm [facility] MPV 11.3 9.1 - 12.3 fL [facility] RBC 3.31(L) 4.30 - 5.80 M/cumm [facility] MCV 86.4 81.3 - 96.4 fL [facility] MCH 27.2 27.1 - 33.3 pg [facility] MCHC 31.5(L) 32.3 - 35.7 g/dL [facility] RDW CV 15.6(H) 11.1 - 14.9 % [facility] RDW SD 49.1(H) 35.7 - 48.1 fL [facility] NRBC abs 0.00 0.00 - 0.01 K/cumm [facility] Blood 05/23/2024 9:27 PM DESKTOP OPERATOR 05/23/2024 9:50 PM DESKTOP OPERATOR us Tashi Thurston MD LAB BLOOD ORDERABLES Final R esult [facility] Department [place] [address] * Magnesium (05/23/2024 9:27 PM DESKTOP OPERATOR) Magnesium 2.2 1.4 - 2.5 mg/dL Blood 05/23/2024 9:27 PM DESKTOP OPERATOR 05/23/2024 9:49 PM DESKTOP OPERATOR us Tashi Thurston MD LAB BLOOD ORDERABLES Final R esult [facility] Department [place] [address] * (ABNORMAL) Comprehensive metabolic panel (05/23/2024 9:27 PM DESKTOP OPERATOR) Sodium 140 135 - 145 mmol/L Potassium, pl 4.5 3.3 - 4.9 mmol/L [facility] Chloride 106 97 - 110 mmol/L [facility] CO2 29 22 - 32 mmol/L [facility] Anion gap 5 2 - 15 mmol/L [facility] BUN 14 6 - 25 mg/dL [facility] Creatinine 1.23 0.80 - 1.30 mg/dL [facility] Glucose 120 70 - 199 mg/dL [facility] Comment: Interpretive Data Fasting glucose >/= 126 [...] 2022. Calcium 8.9 8.5 - 10.3 mg/dL [facility] Bilirubin, total 0.2 0.1 - 1.2 mg/dL [facility] Protein, pl 6.3(L) 6.5 - 8.5 g/dL [facility] Albumin 2.7(L) 3.5 - 5.0 g/dL [facility] Alk phos 71 40 - 130 Units/L [facility] ALT 12 7 - 55 Units/L [facility] AST 20 10 - 50 Units/L [facility] Blood 05/23/2024 9:27 PM DESKTOP OPERATOR 05/23/2024 9:49 PM DESKTOP OPERATOR us Tashi Thurston MD LAB BLOOD ORDERABLES Final R esult Performing Organization Address [facility] Co de Phone Number JUAREZ CHAUDHARY [facility] Department [place] [address] * (ABNORMAL) eGFR (05/22/2024 8:31 PM DESKTOP OPERATOR) eGFR 56(L) >=60 mL/min/1. 73 m2 Comment: [...] last reviewed 2021. Blood 05/22/2024 8:31 PM DESKTOP OPERATOR 05/22/2024 9:15 PM DESKTOP OPERATOR us Tashi Thurston MD LAB BLOOD ORDERABLES Final R esult Performing Organization Address City/[facility] Co de Phone Number JUAREZ Law [facility] Department [place] [address] * Differential, auto (05/22/2024 8:31 PM DESKTOP OPERATOR) Neutrophil abs 4.1 1.5 - 6.5 K/cumm Imm gran abs 0.0 0.0 - 0.1 K/cumm [facility] Lymphocyte abs 1.5 0.8 - 3.3 K/cumm [facility] Monocyte abs 0.7 0.2 - 0.8 K/cumm [facility] Eosinophil abs 0.2 0.0 - 0.5 K/cumm [facility] Basophil abs 0.0 0.0 - 0.1 K/cumm [facility] Neutrophil pct 62.5 % [facility] Comment: Interpretive Data Percent cell count reference ranges are not reported, since discordance with absolute values may lead to misinterpretation of CBC data. Current Interpretive Data was last revised on 2017. Imm gran pct 0.5 % [facility] Comment: Interpretive Data Percent cell count reference ranges are not reported, since discordance with absolute values may lead to misinterpretation of CBC data. Current Interpretive Data was last revised on 2017. Lymphocyte pct 22.6 % [facility] Comment: Interpretive Data Percent cell count reference ranges are not reported, since discordance with absolute values may lead to misinterpretation of CBC data. Current Interpretive Data was last revised on 2017. Monocyte pct 11.0 % [facility] Comment: Interpretive Data Percent cell count reference ranges are not reported, since discordance with absolute values may lead to misinterpretation of CBC data. Current Interpretive Data was last revised on 2017. Eosinophil pct 2.9 % [facility] Comment: Interpretive Data Percent cell count reference ranges are not reported, since discordance with absolute values may lead to misinterpretation of CBC data. Current Interpretive Data was last revised on 2017. Basophil pct 0.5 % [facility] Comment: Interpretive Data Percent cell count reference ranges are not reported, since discordance with absolute values may lead to misinterpretation of CBC data. Current Interpretive Data was last revised on 2017. Blood 05/22/2024 8:31 PM DESKTOP OPERATOR 05/22/2024 9:13 PM DESKTOP OPERATOR us Tashi Thurston MD LAB BLOOD ORDERABLES Final R esult [facility] [place] [employer] [place] [address] * (ABNORMAL) CBC with auto differential (05/22/2024 8:31 PM DESKTOP OPERATOR) WBC 6.5 3.8 - 9.9 K/cumm Hgb 8.8(L) 13.0 - 17.5 g/dL [facility] Hct 28.0(L) 38.9 - 50.3 % [facility] Plt 178 150 - 400 K/cumm [facility] MPV 11.1 9.1 - 12.3 fL [facility] RBC 3.23(L) 4.30 - 5.80 M/cumm [facility] MCV 86.7 81.3 - 96.4 fL [facility] MCH 27.2 27.1 - 33.3 pg [facility] MCHC 31.4(L) 32.3 - 35.7 g/dL [facility] RDW CV 15.5(H) 11.1 - 14.9 % [facility] RDW SD 49.8(H) 35.7 - 48.1 fL [facility] NRBC abs 0.00 0.00 - 0.01 K/cumm [facility] Blood 05/22/2024 8:31 PM DESKTOP OPERATOR 05/22/2024 9:13 PM DESKTOP OPERATOR us Tashi Thurston MD LAB BLOOD ORDERABLES Final R esult [facility] [place] [employer] [place] [address] * Magnesium (05/22/2024 8:31 PM DESKTOP OPERATOR) Magnesium 2.2 1.4 - 2.5 mg/dL Blood 05/22/2024 8:31 PM DESKTOP OPERATOR 05/22/2024 9:10 PM DESKTOP OPERATOR us Tashi Thurston MD LAB BLOOD ORDERABLES Final R esult [facility] Department [place] [address] * (ABNORMAL) Creatine kinase (CK), total (05/22/2024 8:31 PM DESKTOP OPERATOR) Pathologist [facility] CK 25(L) 40 - 300 Units/L Blood 05/22/2024 8:31 PM DESKTOP OPERATOR 05/22/2024 9:10 PM DESKTOP OPERATOR Tashi Phipps MD PhD LAB BLOOD ORDERABL ES Final Result Performing Organization Address [facility] Co de Phone Number [facility] Department [place] [address] * (ABNORMAL) Comprehensive metabolic panel (05/22/2024 8:31 PM DESKTOP OPERATOR) Pathologist [facility] Sodium 137 135 - 145 mmol/L Potassium, pl 4.3 3.3 - 4.9 mmol/L [facility] Chloride 106 97 - 110 mmol/L [facility] CO2 28 22 - 32 mmol/L [facility] Anion gap 3 2 - 15 mmol/L [facility] BUN 14 6 - 25 mg/dL [facility] Creatinine 1.27 0.80 - 1.30 mg/dL [facility] Glucose 135 70 - 199 mg/dL [facility] Comment: Interpretive Data Fasting glucose >/= 126 [...] 2022. Calcium 8.8 8.5 - 10.3 mg/dL [facility] Bilirubin, total 0.3 0.1 - 1.2 mg/dL [facility] Protein, pl 6.2(L) 6.5 - 8.5 g/dL [facility] Albumin 2.6(L) 3.5 - 5.0 g/dL [facility] Alk phos 76 40 - 130 Units/L [facility] ALT 14 7 - 55 Units/L [facility] AST 21 10 - 50 Units/L [facility] Blood 05/22/2024 8:31 PM DESKTOP OPERATOR 05/22/2024 9:10 PM DESKTOP OPERATOR us Tashi Thurston MD LAB BLOOD ORDERABLES Final R esult [facility] Department [place] [address] * eGFR (05/21/2024 8:10 PM DESKTOP OPERATOR) eGFR 61 >=60 mL/min/1. 73 m2 Comment: [...] last reviewed 2021. Blood 05/21/2024 8:10 PM DESKTOP OPERATOR 05/21/2024 9:35 PM DESKTOP OPERATOR us Tashi Thurston MD LAB BLOOD ORDERABLES Final R esult [facility] Department [place] [address] * Differential, auto (05/21/2024 8:10 PM DESKTOP OPERATOR) Neutrophil abs 4.6 1.5 - 6.5 K/cumm Imm gran abs 0.0 0.0 - 0.1 K/cumm [facility] Lymphocyte abs 1.4 0.8 - 3.3 K/cumm [facility] Monocyte abs 0.7 0.2 - 0.8 K/cumm [facility] Eosinophil abs 0.2 0.0 - 0.5 K/cumm [facility] Basophil abs 0.0 0.0 - 0.1 K/cumm [facility] Neutrophil pct 66.3 % [facility] Comment: Interpretive Data Percent cell count reference ranges are not reported, since discordance with absolute values may lead to misinterpretation of CBC data. Current Interpretive Data was last revised on 2017. Imm gran pct 0.3 % [facility] Comment: Interpretive Data Percent cell count reference ranges are not reported, since discordance with absolute values may lead to misinterpretation of CBC data. Current Interpretive Data was last revised on 2017. Lymphocyte pct 20.1 % [facility] Comment: Interpretive Data Percent cell count reference ranges are not reported, since discordance with absolute values may lead to misinterpretation of CBC data. Current Interpretive Data was last revised on 2017. Monocyte pct 10.6 % [facility] Comment: Interpretive Data Percent cell count reference ranges are not reported, since discordance with absolute values may lead to misinterpretation of CBC data. Current Interpretive Data was last revised on 2017. Eosinophil pct 2.3 % [facility] Comment: Interpretive Data Percent cell count reference ranges are not reported, since discordance with absolute values may lead to misinterpretation of CBC data. Current Interpretive Data was last revised on 2017. Basophil pct 0.4 % [facility] Comment: Interpretive Data Percent cell count reference ranges are not reported, since discordance with absolute values may lead to misinterpretation of CBC data. Current Interpretive Data was last revised on 2017. Blood 05/21/2024 8:10 PM DESKTOP OPERATOR 05/21/2024 9:36 PM DESKTOP OPERATOR us Tashi Thurston MD LAB BLOOD ORDERABLES Final R esult [facility] Department [place] [address] * (ABNORMAL) CBC with auto differential (05/21/2024 8:10 PM DESKTOP OPERATOR) WBC 6.9 3.8 - 9.9 K/cumm Hgb 8.8(L) 13.0 - 17.5 g/dL [facility] Hct 28.3(L) 38.9 - 50.3 % [facility] Plt 199 150 - 400 K/cumm [facility] MPV 11.4 9.1 - 12.3 fL [facility] RBC 3.29(L) 4.30 - 5.80 M/cumm [facility] MCV 86.0 81.3 - 96.4 fL [facility] MCH 26.7(L) 27.1 - 33.3 pg [facility] MCHC 31.1(L) 32.3 - 35.7 g/dL [facility] RDW CV 15.5(H) 11.1 - 14.9 % [facility] RDW SD 48.6(H) 35.7 - 48.1 fL [facility] NRBC abs 0.00 0.00 - 0.01 K/cumm [facility] Blood 05/21/2024 8:10 PM DESKTOP OPERATOR 05/21/2024 9:36 PM DESKTOP OPERATOR Tashi Thurston MD LAB BLOOD ORDERABLES Final R esult Performing Organization Address City/[facility]/ZIP Co de Phone Number [facility] Department [place] [address] * Magnesium (05/21/2024 8:10 PM DESKTOP OPERATOR) Pathologist [facility] Magnesium 2.1 1.4 - 2.5 mg/dL Blood 05/21/2024 8:10 PM DESKTOP OPERATOR 05/21/2024 9:35 PM DESKTOP OPERATOR Tashi Thurston MD LAB BLOOD ORDERABLES Final R esult Performing Organization Address [facility] de Phone Number [facility] Department [place] [address] * (ABNORMAL) Comprehensive metabolic panel (05/21/2024 8:10 PM DESKTOP OPERATOR) [facility] Sodium 142 135 - 145 mmol/L Potassium, pl 3.9 3.3 - 4.9 mmol/L [facility] Chloride 108 97 - 110 mmol/L [facility] CO2 28 22 - 32 mmol/L [facility] Anion gap 6 2 - 15 mmol/L [facility] BUN 11 6 - 25 mg/dL [facility] Creatinine 1.17 0.80 - 1.30 mg/dL [facility] Glucose 155 70 - 199 mg/dL [facility] Comment: Interpretive Data Fasting glucose >/= 126 [...] 2022. Calcium 8.7 8.5 - 10.3 mg/dL [facility] Bilirubin, total 0.3 0.1 - 1.2 mg/dL [facility] Protein, pl 6.1(L) 6.5 - 8.5 g/dL [facility] Albumin 2.6(L) 3.5 - 5.0 g/dL [facility] Alk phos 64 40 - 130 Units/L [facility] ALT 11 7 - 55 Units/L [facility] AST 18 10 - 50 Units/L [facility] Blood 05/21/2024 8:10 PM DESKTOP OPERATOR 05/21/2024 9:35 PM DESKTOP OPERATOR us Tashi Thurston MD LAB BLOOD ORDERABLES Final R esult [facility] Department [place] [address] * eGFR (05/20/2024 8:16 PM DESKTOP OPERATOR) eGFR 60 >=60 mL/min/1. 73 m2 Comment: [...] last reviewed 2021. Blood 05/20/2024 8:16 PM DESKTOP OPERATOR 05/20/2024 8:53 PM DESKTOP OPERATOR us Tashi Thurston MD LAB BLOOD ORDERABLES Final R esult [facility] Department [place] [address] * Differential, auto (05/20/2024 8:16 PM DESKTOP OPERATOR) Neutrophil abs 4.4 1.5 - 6.5 K/cumm Imm gran abs 0.0 0.0 - 0.1 K/cumm [facility] Lymphocyte abs 1.3 0.8 - 3.3 K/cumm [facility] Monocyte abs 0.6 0.2 - 0.8 K/cumm [facility] Eosinophil abs 0.1 0.0 - 0.5 K/cumm [facility] Basophil abs 0.0 0.0 - 0.1 K/cumm [facility] Neutrophil pct 67.8 % [facility] Comment: Interpretive Data Percent cell count reference ranges are not reported, since discordance with absolute values may lead to misinterpretation of CBC data. Current Interpretive Data was last revised on 2017. Imm gran pct 0.3 % [facility] Comment: Interpretive Data Percent cell count reference ranges are not reported, since discordance with absolute values may lead to misinterpretation of CBC data. Current Interpretive Data was last revised on 2017. Lymphocyte pct 20.0 % [facility] Comment: Interpretive Data Percent cell count reference ranges are not reported, since discordance with absolute values may lead to misinterpretation of CBC data. Current Interpretive Data was last revised on 2017. Monocyte pct 9.1 % [facility] Comment: Interpretive Data Percent cell count reference ranges are not reported, since discordance with absolute values may lead to misinterpretation of CBC data. Current Interpretive Data was last revised on 2017. Eosinophil pct 2.2 % [facility] Comment: Interpretive Data Percent cell count reference ranges are not reported, since discordance with absolute values may lead to misinterpretation of CBC data. Current Interpretive Data was last revised on 2017. Basophil pct 0.6 % [facility] Comment: Interpretive Data Percent cell count reference ranges are not reported, since discordance with absolute values may lead to misinterpretation of CBC data. Current Interpretive Data was last revised on 2017. Blood 05/20/2024 8:16 PM DESKTOP OPERATOR 05/20/2024 8:52 PM DESKTOP OPERATOR us Tashi Thurston MD LAB BLOOD ORDERABLES Final R esult [facility] Department [place] [address] * (ABNORMAL) CBC with auto differential (05/20/2024 8:16 PM DESKTOP OPERATOR) Pathologist [facility] WBC 6.5 3.8 - 9.9 K/cumm Hgb 9.0(L) 13.0 - 17.5 g/dL [facility] Hct 28.9(L) 38.9 - 50.3 % [facility] Plt 174 150 - 400 K/cumm [facility] MPV 11.1 9.1 - 12.3 fL [facility] RBC 3.33(L) 4.30 - 5.80 M/cumm [facility] MCV 86.8 81.3 - 96.4 fL [facility] MCH 27.0(L) 27.1 - 33.3 pg [facility] MCHC 31.1(L) 32.3 - 35.7 g/dL [facility] RDW CV 15.5(H) 11.1 - 14.9 % [facility] RDW SD 49.7(H) 35.7 - 48.1 fL [facility] NRBC abs 0.00 0.00 - 0.01 K/cumm [facility] Blood 05/20/2024 8:16 PM DESKTOP OPERATOR 05/20/2024 8:52 PM DESKTOP OPERATOR us Tashi Thurston MD LAB BLOOD ORDERABLES Final R esult Performing Organization Address City/[facility]/ZIP Co de Phone Number [facility] Department [place] [address] * Magnesium (05/20/2024 8:16 PM DESKTOP OPERATOR) Pathologist [facility] Magnesium 2.0 1.4 - 2.5 mg/dL Blood 05/20/2024 8:16 PM DESKTOP OPERATOR 05/20/2024 8:53 PM DESKTOP OPERATOR Tashi Thurston MD LAB BLOOD ORDERABLES Final R ult Performing Organization Address [facility] Co de Phone Number [facility] Department [place] [address] * (ABNORMAL) Comprehensive metabolic panel (05/20/2024 8:16 PM DESKTOP OPERATOR) [facility] Sodium 140 135 - 145 mmol/L Potassium, pl 4.3 3.3 - 4.9 mmol/L [facility] Chloride 108 97 - 110 mmol/L [facility] CO2 26 22 - 32 mmol/L [facility] Anion gap 6 2 - 15 mmol/L [facility] BUN 11 6 - 25 mg/dL [facility] Creatinine 1.19 0.80 - 1.30 mg/dL [facility] Glucose 134 70 - 199 mg/dL [facility] Comment: Interpretive Data Fasting glucose >/= 126 [...] 2022. Calcium 8.5 8.5 - 10.3 mg/dL [facility] Bilirubin, total 0.3 0.1 - 1.2 mg/dL [facility] Protein, pl 6.2(L) 6.5 - 8.5 g/dL [facility] Albumin 2.7(L) 3.5 - 5.0 g/dL [facility] Alk phos 67 40 - 130 Units/L [facility] ALT 13 7 - 55 Units/L [facility] AST 26 10 - 50 Units/L [facility] Blood 05/20/2024 8:16 PM DESKTOP OPERATOR 05/20/2024 8:53 PM DESKTOP OPERATOR us Tashi Thurston MD LAB BLOOD ORDERABLES Final R esult [facility] Department [place] [address] * eGFR (05/19/2024 8:19 PM DESKTOP OPERATOR) eGFR 64 >=60 mL/min/1. 73 m2 Comment: [...] last reviewed 2021. Blood 05/19/2024 8:19 PM DESKTOP OPERATOR 05/19/2024 9:03 PM DESKTOP OPERATOR us Tashi Thurston MD LAB BLOOD ORDERABLES Final R esult [facility] Department [place] [address] * Differential, auto (05/19/2024 8:19 PM DESKTOP OPERATOR) Neutrophil abs 4.8 1.5 - 6.5 K/cumm Imm gran abs 0.0 0.0 - 0.1 K/cumm [facility] Lymphocyte abs 1.5 0.8 - 3.3 K/cumm [facility] Monocyte abs 0.7 0.2 - 0.8 K/cumm [facility] Eosinophil abs 0.2 0.0 - 0.5 K/cumm [facility] Basophil abs 0.0 0.0 - 0.1 K/cumm [facility] Neutrophil pct 66.5 % [facility] Comment: Interpretive Data Percent cell count reference ranges are not reported, since discordance with absolute values may lead to misinterpretation of CBC data. Current Interpretive Data was last revised on 2017. Imm gran pct 0.4 % [facility] Comment: Interpretive Data Percent cell count reference ranges are not reported, since discordance with absolute values may lead to misinterpretation of CBC data. Current Interpretive Data was last revised on 2017. Lymphocyte pct 21.0 % [facility] Comment: Interpretive Data Percent cell count reference ranges are not reported, since discordance with absolute values may lead to misinterpretation of CBC data. Current Interpretive Data was last revised on 2017. Monocyte pct 9.5 % [facility] Comment: Interpretive Data Percent cell count reference ranges are not reported, since discordance with absolute values may lead to misinterpretation of CBC data. Current Interpretive Data was last revised on 2017. Eosinophil pct 2.2 % [facility] Comment: Interpretive Data Percent cell count reference ranges are not reported, since discordance with absolute values may lead to misinterpretation of CBC data. Current Interpretive Data was last revised on 2017. Basophil pct 0.4 % [facility] Comment: Interpretive Data Percent cell count reference ranges are not reported, since discordance with absolute values may lead to misinterpretation of CBC data. Current Interpretive Data was last revised on 2017. Blood 05/19/2024 8:19 PM DESKTOP OPERATOR 05/19/2024 8:55 PM DESKTOP OPERATOR us Tashi Thurston MD LAB BLOOD ORDERABLES Final R esult [facility] Department [place] [address] * (ABNORMAL) CBC with auto differential (05/19/2024 8:19 PM DESKTOP OPERATOR) WBC 7.2 3.8 - 9.9 K/cumm Hgb 8.9(L) 13.0 - 17.5 g/dL [facility] Hct 28.4(L) 38.9 - 50.3 % [facility] Plt 222 150 - 400 K/cumm [facility] MPV 11.2 9.1 - 12.3 fL [facility] RBC 3.30(L) 4.30 - 5.80 M/cumm [facility] MCV 86.1 81.3 - 96.4 fL [facility] MCH 27.0(L) 27.1 - 33.3 pg [facility] MCHC 31.3(L) 32.3 - 35.7 g/dL [facility] RDW CV 15.7(H) 11.1 - 14.9 % [facility] RDW SD 49.3(H) 35.7 - 48.1 fL [facility] NRBC abs 0.00 0.00 - 0.01 K/cumm [facility] Blood 05/19/2024 8:19 PM DESKTOP OPERATOR 05/19/2024 8:55 PM DESKTOP OPERATOR Tashi Thurston MD LAB BLOOD ORDERABLES Final R esult Performing Organization Address [facility] Co de Phone Number [facility] [place] [address] * Magnesium (05/19/2024 8:19 PM DESKTOP OPERATOR) Pathologist [facility] Magnesium 2.0 1.4 - 2.5 mg/dL Blood 05/19/2024 8:19 PM DESKTOP OPERATOR 05/19/2024 8:55 PM DESKTOP OPERATOR Tashi Thurston MD LAB BLOOD ORDERABLES Final R esult Performing Organization Address [facility] de Phone Number [facility] [place] [address] * Creatine kinase (CK), total (05/19/2024 8:19 PM DESKTOP OPERATOR) [facility] CK 42 40 - 300 Units/L Blood 05/19/2024 8:19 PM DESKTOP OPERATOR 05/19/2024 8:55 PM DESKTOP OPERATOR Sandip Juarez MD LAB BLOOD ORDERABLES Final Result Performing Organization Address [facility] [place] [address] * (ABNORMAL) Comprehensive metabolic panel (05/19/2024 8:19 PM DESKTOP OPERATOR) [facility] Sodium 140 135 - 145 mmol/L Potassium, pl 4.1 3.3 - 4.9 mmol/L [facility] Chloride 105 97 - 110 mmol/L [facility] CO2 28 22 - 32 mmol/L [facility] Anion gap 7 2 - 15 mmol/L [facility] BUN 10 6 - 25 mg/dL [facility] Creatinine 1.13 0.80 - 1.30 mg/dL [facility] Glucose 97 70 - 199 mg/dL [facility] Comment: Interpretive Data Fasting glucose >/= 126 [...] 2022. Calcium 8.6 8.5 - 10.3 mg/dL [facility] Bilirubin, total 0.3 0.1 - 1.2 mg/dL [facility] Protein, pl 6.1(L) 6.5 - 8.5 g/dL [facility] Albumin 2.6(L) 3.5 - 5.0 g/dL [facility] Alk phos 66 40 - 130 Units/L [facility] ALT 16 7 - 55 Units/L [facility] AST 21 10 - 50 Units/L [facility] Blood 05/19/2024 8:19 PM DESKTOP OPERATOR 05/19/2024 8:55 PM DESKTOP OPERATOR us Tashi Thurston MD LAB BLOOD ORDERABLES Final R esult [facility] Department [place] [address] * XR Chest 1 View (05/19/2024 4:57 PM DESKTOP OPERATOR) Anatomical Region Laterality Modality Body, Chest N/A Computed Radiogr aphy 05/19/2024 5:51 PM DESKTOP OPERATOR Impressions 05/19/2024 5:59 PM DESKTOP OPERATOR Comparison is made to PET/CT from 05/18/2024 [...] Khushbu Hanna M.D. Narrative 05/19/2024 5:59 PM DESKTOP OPERATOR EXAMINATION: 1 view chest radiograph Procedure Note [...] it. Electronically signed by: Khushbu Hanna M.D. Sandip Juarez MD IMG XR PROCEDURES Final Res ult * eGFR (05/18/2024 10:09 PM DESKTOP OPERATOR) eGFR 67 >=60 mL/min/1. 73 m2 Comment: [...] reviewed 2021. Blood 05/18/2024 10:0 9 PM DESKTOP OPERATOR 05/18/2024 10:53 PM DESKTOP OPERATOR us Tashi Thurston MD LAB BLOOD ORDERABLES Final R esult [facility] Department [place] [address] * Differential, auto (05/18/2024 10:09 PM DESKTOP OPERATOR) Pathologist [facility] Neutrophil abs 3.9 1.5 - 6.5 K/cumm Imm gran abs 0.0 0.0 - 0.1 K/cumm [facility] Lymphocyte abs 1.5 0.8 - 3.3 K/cumm [facility] Monocyte abs 0.6 0.2 - 0.8 K/cumm [facility] Eosinophil abs 0.2 0.0 - 0.5 K/cumm [facility] Basophil abs 0.0 0.0 - 0.1 K/cumm [facility] Neutrophil pct 62.6 % [facility] Comment: Interpretive Data Percent cell count reference ranges are not reported, since discordance with absolute values may lead to misinterpretation of CBC data. Current Interpretive Data was last revised on 2017. Imm gran pct 0.6 % [facility] Comment: Interpretive Data Percent cell count reference ranges are not reported, since discordance with absolute values may lead to misinterpretation of CBC data. Current Interpretive Data was last revised on 2017. Lymphocyte pct 23.6 % [facility] Comment: Interpretive Data Percent cell count reference ranges are not reported, since discordance with absolute values may lead to misinterpretation of CBC data. Current Interpretive Data was last revised on 2017. Monocyte pct 10.2 % [facility] Comment: Interpretive Data Percent cell count reference ranges are not reported, since discordance with absolute values may lead to misinterpretation of CBC data. Current Interpretive Data was last revised on 2017. Eosinophil pct 2.7 % [facility] Comment: Interpretive Data Percent cell count reference ranges are not reported, since discordance with absolute values may lead to misinterpretation of CBC data. Current Interpretive Data was last revised on 2017. Basophil pct 0.3 % [facility] Comment: Interpretive Data Percent cell count reference ranges are not reported, since discordance with absolute values may lead to misinterpretation of CBC data. Current Interpretive Data was last revised on 2017. Blood 05/18/2024 10:0 9 PM DESKTOP OPERATOR 05/18/2024 10:55 PM DESKTOP OPERATOR us Tashi Thurston MD LAB BLOOD ORDERABLES Final R esult [facility] Department [place] [address] * (ABNORMAL) CBC with auto differential (05/18/2024 10:09 PM DESKTOP OPERATOR) WBC 6.3 3.8 - 9.9 K/cumm Hgb 9.1(L) 13.0 - 17.5 g/dL [facility] Hct 28.4(L) 38.9 - 50.3 % [facility] Plt 200 150 - 400 K/cumm [facility] MPV 11.3 9.1 - 12.3 fL [facility] RBC 3.32(L) 4.30 - 5.80 M/cumm [facility] MCV 85.5 81.3 - 96.4 fL [facility] MCH 27.4 27.1 - 33.3 pg [facility] MCHC 32.0(L) 32.3 - 35.7 g/dL [facility] RDW CV 15.5(H) 11.1 - 14.9 % [facility] RDW SD 49.4(H) 35.7 - 48.1 fL [facility] NRBC abs 0.00 0.00 - 0.01 K/cumm [facility] Blood 05/18/2024 10:0 9 PM DESKTOP OPERATOR 05/18/2024 10:55 PM DESKTOP OPERATOR us Tashi Thurston MD LAB BLOOD ORDERABLES Final R esult Performing Organization Address City/[facility]/ZIP Co de Phone Number [facility] Department [place] [employer] [place] [address] * Magnesium (05/18/2024 10:09 PM DESKTOP OPERATOR) [facility] Magnesium 1.9 1.4 - 2.5 mg/dL Blood 05/18/2024 10:0 9 PM DESKTOP OPERATOR 05/18/2024 10:53 PM DESKTOP OPERATOR us Tashi Thurston MD LAB BLOOD ORDERABLES Final R ult [facility] [place] [address] * (ABNORMAL) Comprehensive metabolic panel (05/18/2024 10:09 PM DESKTOP OPERATOR) Pathologist [facility] Sodium 138 135 - 145 mmol/L Potassium, pl 3.6 3.3 - 4.9 mmol/L [facility] Chloride 105 97 - 110 mmol/L [facility] CO2 25 22 - 32 mmol/L [facility] Anion gap 8 2 - 15 mmol/L [facility] BUN 12 6 - 25 mg/dL [facility] Creatinine 1.09 0.80 - 1.30 mg/dL [facility] Glucose 92 70 - 199 mg/dL [facility] Comment: Interpretive Data Fasting glucose >/= 126 [...] 2022. Calcium 8.1(L) 8.5 - 10.3 mg/dL [facility] Bilirubin, total 0.3 0.1 - 1.2 mg/dL [facility] Protein, pl 6.1(L) 6.5 - 8.5 g/dL [facility] Albumin 2.6(L) 3.5 - 5.0 g/dL [facility] Alk phos 66 40 - 130 Units/L [facility] ALT 16 7 - 55 Units/L [facility] AST 25 10 - 50 Units/L [facility] Blood 05/18/2024 10:0 9 PM DESKTOP OPERATOR 05/18/2024 10:53 PM DESKTOP OPERATOR us Tashi Thurston MD LAB BLOOD ORDERABLES Final R esult [facility] Department [place] [address] * PET/CT FDG Skull to Thigh (05/18/2024 10:21 AM DESKTOP OPERATOR) Anatomical Region Laterality Modality N/A Positron Emissio n Tomography (PET) 05/18/2024 1:44 PM DESKTOP OPERATOR Impressions 05/18/2024 2:09 PM DESKTOP OPERATOR 1. Multifocal areas of FDG avid consolidation [...] Clive Martinez M.D. Narrative 05/18/2024 2:09 PM DESKTOP OPERATOR EXAMINATION: TUMOR FDG-PET/CT IMAGING DATE OF STUDY: ??05/18/2024 SCANNER: [employer] (NV1). ??This is a high-resolution scanner, which [...] obtained. ??The study was interpreted on the WinDensity workstation. ??The mean liver SUV (reported for quality assurance clerk purposes) is 1.7. ?? The total scanned [...] FDG-PET/CT IMAGING DATE OF STUDY: 05/18/2024 SCANNER: [facility] [employer] (NV1). This is a high-resolution scanner, which [...] obtained. The study was interpreted on the [employer] workstation. The mean liver SUV (reported for quality assurance clerk purposes) is 1.7. The total scanned area [...] by: Clive Martinez M.D. Sandip Juarez MD IM PET PROCEDURES Final Re sult * eGFR (05/17/2024 9:34 PM DESKTOP OPERATOR) eGFR 69 >=60 mL/min/1. 73 m2 Comment: [...] last reviewed 2021. Blood 05/17/2024 9:34 PM DESKTOP OPERATOR 05/17/2024 10:20 PM DESKTOP OPERATOR us Tashi Thurston MD LAB BLOOD ORDERABLES Final R esult [facility] Department [place] [address] * Differential, auto (05/17/2024 9:34 PM DESKTOP OPERATOR) Neutrophil abs 4.5 1.5 - 6.5 K/cumm Imm gran abs 0.0 0.0 - 0.1 K/cumm [facility] Lymphocyte abs 1.2 0.8 - 3.3 K/cumm [facility] Monocyte abs 0.6 0.2 - 0.8 K/cumm [facility] Eosinophil abs 0.2 0.0 - 0.5 K/cumm [facility] Basophil abs 0.0 0.0 - 0.1 K/cumm [facility] Neutrophil pct 69.0 % [facility] Comment: Interpretive Data Percent cell count reference ranges are not reported, since discordance with absolute values may lead to misinterpretation of CBC data. Current Interpretive Data was last revised on 2017. Imm gran pct 0.3 % [facility] Comment: Interpretive Data Percent cell count reference ranges are not reported, since discordance with absolute values may lead to misinterpretation of CBC data. Current Interpretive Data was last revised on 2017. Lymphocyte pct 19.0 % [facility] Comment: Interpretive Data Percent cell count reference ranges are not reported, since discordance with absolute values may lead to misinterpretation of CBC data. Current Interpretive Data was last revised on 2017. Monocyte pct 8.8 % [facility] Comment: Interpretive Data Percent cell count reference ranges are not reported, since discordance with absolute values may lead to misinterpretation of CBC data. Current Interpretive Data was last revised on 2017. Eosinophil pct 2.6 % [facility] Comment: Interpretive Data Percent cell count reference ranges are not reported, since discordance with absolute values may lead to misinterpretation of CBC data. Current Interpretive Data was last revised on 2017. Basophil pct 0.3 % [facility] Comment: Interpretive Data Percent cell count reference ranges are not reported, since discordance with absolute values may lead to misinterpretation of CBC data. Current Interpretive Data was last revised on 2017. Blood 05/17/2024 9:34 PM DESKTOP OPERATOR 05/17/2024 10:21 PM DESKTOP OPERATOR us Tashi Thurston MD LAB BLOOD ORDERABLES Final R esult [facility] Department [place] [address] * (ABNORMAL) CBC with auto differential (05/17/2024 9:34 PM DESKTOP OPERATOR) WBC 6.5 3.8 - 9.9 K/cumm Hgb 9.1(L) 13.0 - 17.5 g/dL [facility] Hct 28.7(L) 38.9 - 50.3 % [facility] Plt 207 150 - 400 K/cumm [facility] MPV 11.0 9.1 - 12.3 fL [facility] RBC 3.31(L) 4.30 - 5.80 M/cumm [facility] MCV 86.7 81.3 - 96.4 fL [facility] MCH 27.5 27.1 - 33.3 pg [facility] MCHC 31.7(L) 32.3 - 35.7 g/dL [facility] RDW CV 15.7(H) 11.1 - 14.9 % [facility] RDW SD 50.3(H) 35.7 - 48.1 fL [facility] NRBC abs 0.00 0.00 - 0.01 K/cumm [facility] Blood 05/17/2024 9:34 PM DESKTOP OPERATOR 05/17/2024 10:21 PM DESKTOP OPERATOR Tashi Thurston MD LAB BLOOD ORDERABLES Final R esult Performing Organization Address City/[facility]/ZIP Co de Phone Number [facility] [place] [address] * Magnesium (05/17/2024 9:34 PM DESKTOP OPERATOR) [facility] Magnesium 2.0 1.4 - 2.5 mg/dL Blood 05/17/2024 9:34 PM DESKTOP OPERATOR 05/17/2024 10:20 PM DESKTOP OPERATOR us Tashi Thurston MD LAB BLOOD ORDERABLES Final R esult Performing Organization Address [facility] Co de Phone Number [facility] Department [place] [address] * (ABNORMAL) Comprehensive metabolic panel (05/17/2024 9:34 PM DESKTOP OPERATOR) Pathologist [facility] Sodium 141 135 - 145 mmol/L Potassium, pl 3.7 3.3 - 4.9 mmol/L [facility] Chloride 110 97 - 110 mmol/L [facility] CO2 26 22 - 32 mmol/L [facility] Anion gap 5 2 - 15 mmol/L [facility] BUN 14 6 - 25 mg/dL [facility] Creatinine 1.06 0.80 - 1.30 mg/dL [facility] Glucose 130 70 - 199 mg/dL [facility] Comment: Interpretive Data Fasting glucose >/= 126 [...] 2022. Calcium 8.1(L) 8.5 - 10.3 mg/dL [facility] Bilirubin, total 0.3 0.1 - 1.2 mg/dL [facility] Protein, pl 5.9(L) 6.5 - 8.5 g/dL [facility] Albumin 2.5(L) 3.5 - 5.0 g/dL [facility] Alk phos 67 40 - 130 Units/L [facility] ALT 18 7 - 55 Units/L [facility] AST 26 10 - 50 Units/L [facility] Blood 05/17/2024 9:34 PM DESKTOP OPERATOR 05/17/2024 10:20 PM DESKTOP OPERATOR us Tashi Thurston MD LAB BLOOD ORDERABLES Final R esult [facility] Department [place] [address] * eGFR (05/16/2024 10:50 PM DESKTOP OPERATOR) eGFR 63 >=60 mL/min/1. 73 m2 Comment: [...] reviewed 2021. Blood 05/16/2024 10:5 0 PM DESKTOP OPERATOR 05/16/2024 11:12 PM DESKTOP OPERATOR us Tashi Thurston MD LAB BLOOD ORDERABLES Final R esult [facility] Department [place] [address] * Differential, auto (05/16/2024 10:50 PM DESKTOP OPERATOR) Neutrophil abs 5.2 1.5 - 6.5 K/cumm Imm gran abs 0.0 0.0 - 0.1 K/cumm [facility] Lymphocyte abs 1.2 0.8 - 3.3 K/cumm [facility] Monocyte abs 0.7 0.2 - 0.8 K/cumm [facility] Eosinophil abs 0.2 0.0 - 0.5 K/cumm [facility] Basophil abs 0.0 0.0 - 0.1 K/cumm [facility] Neutrophil pct 71.2 % [facility] Comment: Interpretive Data Percent cell count reference ranges are not reported, since discordance with absolute values may lead to misinterpretation of CBC data. Current Interpretive Data was last revised on 2017. Imm gran pct 0.4 % [facility] Comment: Interpretive Data Percent cell count reference ranges are not reported, since discordance with absolute values may lead to misinterpretation of CBC data. Current Interpretive Data was last revised on 2017. Lymphocyte pct 16.3 % [facility] Comment: Interpretive Data Percent cell count reference ranges are not reported, since discordance with absolute values may lead to misinterpretation of CBC data. Current Interpretive Data was last revised on 2017. Monocyte pct 9.4 % [facility] Comment: Interpretive Data Percent cell count reference ranges are not reported, since discordance with absolute values may lead to misinterpretation of CBC data. Current Interpretive Data was last revised on 2017. Eosinophil pct 2.3 % [facility] Comment: Interpretive Data Percent cell count reference ranges are not reported, since discordance with absolute values may lead to misinterpretation of CBC data. Current Interpretive Data was last revised on 2017. Basophil pct 0.4 % [facility] Comment: Interpretive Data Percent cell count reference ranges are not reported, since discordance with absolute values may lead to misinterpretation of CBC data. Current Interpretive Data was last revised on 2017. Blood 05/16/2024 10:5 0 PM DESKTOP OPERATOR 05/16/2024 11:12 PM DESKTOP OPERATOR us Tashi Thurston MD LAB BLOOD ORDERABLES Final R esult [facility] Department [place] [address] * (ABNORMAL) CBC with auto differential (05/16/2024 10:50 PM DESKTOP OPERATOR) WBC 7.3 3.8 - 9.9 K/cumm Hgb 9.7(L) 13.0 - 17.5 g/dL [facility] Hct 30.1(L) 38.9 - 50.3 % [facility] Plt 234 150 - 400 K/cumm [facility] MPV 11.0 9.1 - 12.3 fL [facility] RBC 3.55(L) 4.30 - 5.80 M/cumm [facility] MCV 84.8 81.3 - 96.4 fL [facility] MCH 27.3 27.1 - 33.3 pg [facility] MCHC 32.2(L) 32.3 - 35.7 g/dL [facility] RDW CV 15.5(H) 11.1 - 14.9 % [facility] RDW SD 48.3(H) 35.7 - 48.1 fL [facility] NRBC abs 0.00 0.00 - 0.01 K/cumm [facility] Blood 05/16/2024 10:5 0 PM DESKTOP OPERATOR 05/16/2024 11:12 PM DESKTOP OPERATOR us Tashi Thurston MD LAB BLOOD ORDERABLES Final R esult Performing Organization Address [facility] Co de Phone Number [facility] [place] [address] * Magnesium (05/16/2024 10:50 PM DESKTOP OPERATOR) Pathologist [facility] Magnesium 2.4 1.4 - 2.5 mg/dL Blood 05/16/2024 10:5 0 PM DESKTOP OPERATOR 05/16/2024 11:12 PM DESKTOP OPERATOR us Tashi Thurston MD LAB BLOOD ORDERABLES Final R esult Performing Organization Address [facility] Co de Phone Number [facility] [place] [address] * Creatine kinase (CK), total (05/16/2024 10:50 PM DESKTOP OPERATOR) Pathologist [facility] CK 64 40 - 300 Units/L Blood 05/16/2024 10:5 0 PM DESKTOP OPERATOR 05/16/2024 11:12 PM DESKTOP OPERATOR us Sandip Juarez MD LAB BLOOD ORDERABLES Final Result Performing Organization Address [facility] Co de Phone Number [facility] [employer] [address] * (ABNORMAL) Comprehensive metabolic panel (05/16/2024 10:50 PM DESKTOP OPERATOR) Sodium 140 135 - 145 mmol/L Potassium, pl 3.4 3.3 - 4.9 mmol/L [facility] Chloride 105 97 - 110 mmol/L [facility] CO2 26 22 - 32 mmol/L [facility] Anion gap 9 2 - 15 mmol/L [facility] BUN 7 6 - 25 mg/dL [facility] Creatinine 1.15 0.80 - 1.30 mg/dL [facility] Glucose 112 70 - 199 mg/dL [facility] Comment: Interpretive Data Fasting glucose >/= 126 [...] 2022. Calcium 8.6 8.5 - 10.3 mg/dL [facility] Bilirubin, total 0.5 0.1 - 1.2 mg/dL [facility] Protein, pl 6.6 6.5 - 8.5 g/dL [facility] Albumin 2.9(L) 3.5 - 5.0 g/dL [facility] Alk phos 63 40 - 130 Units/L [facility] ALT 15 7 - 55 Units/L [facility] AST 33 10 - 50 Units/L [facility] Blood 05/16/2024 10:5 0 PM DESKTOP OPERATOR 05/16/2024 11:12 PM DESKTOP OPERATOR us Tashi Thurston MD LAB BLOOD ORDERABLES Final R esult [facility] [place] [address] * TRANSTHORACIC ECHO (TTE) COMPLETE W DOPPLER/CF W CONTRAST (05/16/2024 11:47 AM DESKTOP OPERATOR) LV EF 61 % CARDIOREPORT Anatomical Region Laterality Modality Ultrasound 05/16/2024 10:4 5 AM DESKTOP OPERATOR Narrative 05/16/2024 1:42 PM DESKTOP OPERATOR Patient name: Kelsie Vo Date of test: 05/16/2024 Type of test: TTE w/Doppler [facility] #: 0 Date of : 1940 (M) Rubber Tubing Backer: Kulwant Cole RDCS Referring Physician: SANDIP JUAREZ MD Contrast Agent: 0.30 ml Definity Administered, (1.20 ml wasted). Contrast Administered by: Db Lazar RN Supervised/Interpreted by: Singh Ventura MD. 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 By signing this report, the attending surgical brace maker certifies that he or she has personally supervised and interpreted the echocardiogram and has reviewed and or edited and agrees with the written comments contained within the report. Procedure Note Shade Ventura MD PhD - 05/16/2024 Patient name: Kelsie Vo Date of test: 05/16/2024 Type of test: TTE w/Doppler [facility] #: 0 Date of : 1940 (M) Rubber Tubing Backer: Kulwant Cole [facility] Referring Physician: SANDIP JUAREZ MD Contrast Agent: 0.30 ml Definity Administered, (1.20 ml wasted). Contrast Administered by: Db Lazar RN Supervised/Interpreted by: Singh Ventura MD. 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 By signing this report, the attending surgical brace maker certifies that he or she has personally supervised and interpreted the echocardiogram and has reviewed and or edited and agrees with the written comments contained within the report. us Sandip Juarez MD CV ECHO PROCEDURES Final Re sult * eGFR (05/15/2024 9:39 PM DESKTOP OPERATOR) Pathologist [facility] eGFR 65 >=60 mL/min/1. 73 m2 Comment: [...] last reviewed 2021. Blood 05/15/2024 9:39 PM DESKTOP OPERATOR 05/15/2024 10:11 PM DESKTOP OPERATOR us Tashi Thurston MD LAB BLOOD ORDERABLES Final R esult [facility] Department [place] [address] * (ABNORMAL) Differential, auto (05/15/2024 9:39 PM DESKTOP OPERATOR) Neutrophil abs 6.9(H) 1.5 - 6.5 K/cumm Imm gran abs 0.0 0.0 - 0.1 K/cumm [facility] Lymphocyte abs 0.9 0.8 - 3.3 K/cumm [facility] Monocyte abs 0.7 0.2 - 0.8 K/cumm [facility] Eosinophil abs 0.1 0.0 - 0.5 K/cumm [facility] Basophil abs 0.0 0.0 - 0.1 K/cumm [facility] Neutrophil pct 80.9 % [facility] Comment: Interpretive Data Percent cell count reference ranges are not reported, since discordance with absolute values may lead to misinterpretation of CBC data. Current Interpretive Data was last revised on 2017. Imm gran pct 0.4 % [facility] Comment: Interpretive Data Percent cell count reference ranges are not reported, since discordance with absolute values may lead to misinterpretation of CBC data. Current Interpretive Data was last revised on 2017. Lymphocyte pct 10.1 % [facility] Comment: Interpretive Data Percent cell count reference ranges are not reported, since discordance with absolute values may lead to misinterpretation of CBC data. Current Interpretive Data was last revised on 2017. Monocyte pct 7.6 % [facility] Comment: Interpretive Data Percent cell count reference ranges are not reported, since discordance with absolute values may lead to misinterpretation of CBC data. Current Interpretive Data was last revised on 2017. Eosinophil pct 0.8 % [facility] Comment: Interpretive Data Percent cell count reference ranges are not reported, since discordance with absolute values may lead to misinterpretation of CBC data. Current Interpretive Data was last revised on 2017. Basophil pct 0.2 % [facility] Comment: Interpretive Data Percent cell count reference ranges are not reported, since discordance with absolute values may lead to misinterpretation of CBC data. Current Interpretive Data was last revised on 2017. Blood 05/15/2024 9:39 PM DESKTOP OPERATOR 05/15/2024 10:14 PM DESKTOP OPERATOR us Tashi Thurston MD LAB BLOOD ORDERABLES Final R esult [facility] Department [place] [address] * (ABNORMAL) CBC with auto differential (05/15/2024 9:39 PM DESKTOP OPERATOR) WBC 8.5 3.8 - 9.9 K/cumm Hgb 9.8(L) 13.0 - 17.5 g/dL [facility] Hct 31.0(L) 38.9 - 50.3 % [facility] Plt 228 150 - 400 K/cumm [facility] MPV 11.0 9.1 - 12.3 fL [facility] RBC 3.62(L) 4.30 - 5.80 M/cumm [facility] MCV 85.6 81.3 - 96.4 fL [facility] MCH 27.1 27.1 - 33.3 pg [facility] MCHC 31.6(L) 32.3 - 35.7 g/dL [facility] RDW CV 15.7(H) 11.1 - 14.9 % [facility] RDW SD 49.0(H) 35.7 - 48.1 fL [facility] NRBC abs 0.00 0.00 - 0.01 K/cumm [facility] Blood 05/15/2024 9:39 PM DESKTOP OPERATOR 05/15/2024 10:14 PM DESKTOP OPERATOR Tashi Thurston MD LAB BLOOD ORDERABLES Final R esult Performing Organization Address City/[facility]/ZIP Co de Phone Number [facility] Department [place] [address] * Magnesium (05/15/2024 9:39 PM DESKTOP OPERATOR) [facility] Magnesium 2.1 1.4 - 2.5 mg/dL Blood 05/15/2024 9:39 PM DESKTOP OPERATOR 05/15/2024 10:11 PM DESKTOP OPERATOR us Tashi Thurston MD LAB BLOOD ORDERABLES Final R esult Performing Organization Address City[facility] Co de Phone Number [facility] Department [place] [address] * (ABNORMAL) Comprehensive metabolic panel (05/15/2024 9:39 PM DESKTOP OPERATOR) [facility] Sodium 143 135 - 145 mmol/L Potassium, pl 3.9 3.3 - 4.9 mmol/L [facility] Chloride 108 97 - 110 mmol/L [facility] CO2 24 22 - 32 mmol/L [facility] Anion gap 11 2 - 15 mmol/L [facility] BUN 11 6 - 25 mg/dL [facility] Creatinine 1.12 0.80 - 1.30 mg/dL [facility] Glucose 83 70 - 199 mg/dL [facility] Comment: Interpretive Data Fasting glucose >/= 126 [...] 2022. Calcium 8.5 8.5 - 10.3 mg/dL [facility] Bilirubin, total 0.5 0.1 - 1.2 mg/dL [facility] Protein, pl 6.1(L) 6.5 - 8.5 g/dL [facility] Albumin 2.6(L) 3.5 - 5.0 g/dL [facility] Alk phos 56 40 - 130 Units/L [facility] ALT 17 7 - 55 Units/L [facility] AST 33 10 - 50 Units/L [facility] Blood 05/15/2024 9:39 PM DESKTOP OPERATOR 05/15/2024 10:11 PM DESKTOP OPERATOR us Tashi Thurston MD LAB BLOOD ORDERABLES Final R esult [facility] Department [place] [address] * eGFR (05/14/2024 10:49 PM DESKTOP OPERATOR) eGFR 64 >=60 mL/min/1. 73 m2 Comment: [...] reviewed 2021. Blood 05/14/2024 10:4 9 PM DESKTOP OPERATOR 05/14/2024 11:36 PM DESKTOP OPERATOR us Tashi Thurston MD LAB BLOOD ORDERABLES Final R esult [facility] Department [place] [address] * Differential, auto (05/14/2024 10:49 PM DESKTOP OPERATOR) Neutrophil abs 5.8 1.5 - 6.5 K/cumm Imm gran abs 0.0 0.0 - 0.1 K/cumm [facility] Lymphocyte abs 1.0 0.8 - 3.3 K/cumm [facility] Monocyte abs 0.6 0.2 - 0.8 K/cumm [facility] Eosinophil abs 0.2 0.0 - 0.5 K/cumm [facility] Basophil abs 0.0 0.0 - 0.1 K/cumm [facility] Neutrophil pct 75.9 % [facility] Comment: Interpretive Data Percent cell count reference ranges are not reported, since discordance with absolute values may lead to misinterpretation of CBC data. Current Interpretive Data was last revised on 2017. Imm gran pct 0.4 % [facility] Comment: Interpretive Data Percent cell count reference ranges are not reported, since discordance with absolute values may lead to misinterpretation of CBC data. Current Interpretive Data was last revised on 2017. Lymphocyte pct 13.5 % [facility] Comment: Interpretive Data Percent cell count reference ranges are not reported, since discordance with absolute values may lead to misinterpretation of CBC data. Current Interpretive Data was last revised on 2017. Monocyte pct 7.8 % [facility] Comment: Interpretive Data Percent cell count reference ranges are not reported, since discordance with absolute values may lead to misinterpretation of CBC data. Current Interpretive Data was last revised on 2017. Eosinophil pct 2.1 % [facility] Comment: Interpretive Data Percent cell count reference ranges are not reported, since discordance with absolute values may lead to misinterpretation of CBC data. Current Interpretive Data was last revised on 2017. Basophil pct 0.3 % [facility] Comment: Interpretive Data Percent cell count reference ranges are not reported, since discordance with absolute values may lead to misinterpretation of CBC data. Current Interpretive Data was last revised on 2017. Blood 05/14/2024 10:4 9 PM DESKTOP OPERATOR 05/14/2024 11:35 PM DESKTOP OPERATOR us Tashi Thurston MD LAB BLOOD ORDERABLES Final R esult [facility] Department [place] [address] * (ABNORMAL) CBC with auto differential (05/14/2024 10:49 PM DESKTOP OPERATOR) WBC 7.6 3.8 - 9.9 K/cumm Hgb 9.8(L) 13.0 - 17.5 g/dL [facility] Hct 30.5(L) 38.9 - 50.3 % [facility] Plt 218 150 - 400 K/cumm [facility] MPV 11.3 9.1 - 12.3 fL [facility] RBC 3.58(L) 4.30 - 5.80 M/cumm [facility] MCV 85.2 81.3 - 96.4 fL [facility] MCH 27.4 27.1 - 33.3 pg [facility] MCHC 32.1(L) 32.3 - 35.7 g/dL [facility] RDW CV 15.8(H) 11.1 - 14.9 % [facility] RDW SD 49.7(H) 35.7 - 48.1 fL [facility] NRBC abs 0.00 0.00 - 0.01 K/cumm [facility] Blood 05/14/2024 10:4 9 PM DESKTOP OPERATOR 05/14/2024 11:35 PM DESKTOP OPERATOR us Tashi Thurston MD LAB BLOOD ORDERABLES Final R esult Performing Organization Address City/[facility]/ZIP Co de Phone Number [facility] Department [place] [address] * Magnesium (05/14/2024 10:49 PM DESKTOP OPERATOR) [facility] Magnesium 2.1 1.4 - 2.5 mg/dL Blood 05/14/2024 10:4 9 PM DESKTOP OPERATOR 05/14/2024 11:25 PM DESKTOP OPERATOR us Tashi Thurston MD LAB BLOOD ORDERABLES Final R esult Performing Organization Address City[facility] Co de Phone Number [facility] Department [place] [address] * (ABNORMAL) Comprehensive metabolic panel (05/14/2024 10:49 PM DESKTOP OPERATOR) [facility] Sodium 141 135 - 145 mmol/L Potassium, pl 3.6 3.3 - 4.9 mmol/L [facility] Chloride 107 97 - 110 mmol/L [facility] CO2 23 22 - 32 mmol/L [facility] Anion gap 11 2 - 15 mmol/L [facility] BUN 10 6 - 25 mg/dL [facility] Creatinine 1.13 0.80 - 1.30 mg/dL [facility] Glucose 87 70 - 199 mg/dL [facility] Comment: Interpretive Data Fasting glucose >/= 126 [...] 2022. Calcium 8.5 8.5 - 10.3 mg/dL [facility] Bilirubin, total 0.4 0.1 - 1.2 mg/dL [facility] Protein, pl 6.2(L) 6.5 - 8.5 g/dL [facility] Albumin 2.6(L) 3.5 - 5.0 g/dL [facility] Alk phos 61 40 - 130 Units/L [facility] ALT 19 7 - 55 Units/L [facility] AST 21 10 - 50 Units/L [facility] Blood 05/14/2024 10:4 9 PM DESKTOP OPERATOR 05/14/2024 11:25 PM DESKTOP OPERATOR us Tashi Thurston MD LAB BLOOD ORDERABLES Final R esult Performing Organization Address City/[facility]/ZIP Co de Phone Number [facility] Department [place] [employer] [place] [address] * POCT glucose (05/14/2024 12:18 PM DESKTOP OPERATOR) Glucose, POC 100 70 - 199 mg/dL Blood 05/14/2024 12:1 8 PM DESKTOP OPERATOR 05/14/2024 12:18 PM DESKTOP OPERATOR us Sandip Juarez MD LAB POCT ORDERABLES - DEVIC E Final Result Performing Organization Address [facility]/ZIP Co de Phone Number [facility] Department [place] [address] * Blood culture Blood (05/14/2024 9:52 AM DESKTOP OPERATOR) Report Final Report: No growth Blood 05/14/2024 9:52 AM DESKTOP OPERATOR 05/14/2024 11:11 AM DESKTOP OPERATOR Narrative [facility] CHARLTON - 05/18/2024 12:00 PM DESKTOP OPERATOR From a different site than #1. Collection->Peripheral [...] performance characteristics have been verified by the [facility] Microbiology Laboratory. For questions about this culture, contact the Microbiology Laboratory at [phone]. Interpretive data was last revised on 24. Sandip Juarez MD LAB MICROBIOLOGY - GENERAL ORDERABLES Final Result [facility] [place] [address] * Blood culture Blood (05/14/2024 9:52 AM DESKTOP OPERATOR) Report Final Report: No growth Blood 05/14/2024 9:52 AM DESKTOP OPERATOR 05/14/2024 10:55 AM DESKTOP OPERATOR Narrative JUAREZ CHARLTON - 05/18/2024 12:00 PM DESKTOP OPERATOR Collection->Peripheral 1. ?Blood cultures are incubated for [...] be performed for organism identification using the [employer] | mentor [employer] blood culture identification panel for gram positive (BCID-GP) and gram negative (BCID-GN) organisms. This nucleic acid amplification test detects microbial DNA in positive blood culture broth. This assay has been cleared by the [place] Food and Drug Administration and its performance characteristics have been verified by the [facility] Microbiology Laboratory. For questions about this culture, contact the Microbiology Laboratory at [phone]. Interpretive data was last revised on 24. us Sandip Juarez MD LAB MICROBIOLOGY - GENERAL ORDERABLES Final Result [facility] Department [place] [address] * eGFR (05/13/2024 9:09 PM DESKTOP OPERATOR) eGFR 61 >=60 mL/min/1. 73 m2 Comment: [...] last reviewed 2021. Blood 05/13/2024 9:09 PM DESKTOP OPERATOR 05/13/2024 10:16 PM DESKTOP OPERATOR us Tashi Thurston MD LAB BLOOD ORDERABLES Final R esult [facility] Department [place] [address] * (ABNORMAL) Differential, auto (05/13/2024 9:09 PM DESKTOP OPERATOR) Neutrophil abs 8.0(H) 1.5 - 6.5 K/cumm Imm gran abs 0.1 0.0 - 0.1 K/cumm [facility] Lymphocyte abs 0.9 0.8 - 3.3 K/cumm [facility] Monocyte abs 0.6 0.2 - 0.8 K/cumm [facility] Eosinophil abs 0.1 0.0 - 0.5 K/cumm [facility] Basophil abs 0.0 0.0 - 0.1 K/cumm [facility] Neutrophil pct 82.5 % [facility] Comment: Interpretive Data Percent cell count reference ranges are not reported, since discordance with absolute values may lead to misinterpretation of CBC data. Current Interpretive Data was last revised on 2017. Imm gran pct 0.7 % [facility] Comment: Interpretive Data Percent cell count reference ranges are not reported, since discordance with absolute values may lead to misinterpretation of CBC data. Current Interpretive Data was last revised on 2017. Lymphocyte pct 9.4 % [facility] Comment: Interpretive Data Percent cell count reference ranges are not reported, since discordance with absolute values may lead to misinterpretation of CBC data. Current Interpretive Data was last revised on 2017. Monocyte pct 6.0 % [facility] Comment: Interpretive Data Percent cell count reference ranges are not reported, since discordance with absolute values may lead to misinterpretation of CBC data. Current Interpretive Data was last revised on 2017. Eosinophil pct 1.1 % [facility] Comment: Interpretive Data Percent cell count reference ranges are not reported, since discordance with absolute values may lead to misinterpretation of CBC data. Current Interpretive Data was last revised on 2017. Basophil pct 0.3 % [facility] Comment: Interpretive Data Percent cell count reference ranges are not reported, since discordance with absolute values may lead to misinterpretation of CBC data. Current Interpretive Data was last revised on 2017. Blood 05/13/2024 9:09 PM DESKTOP OPERATOR 05/13/2024 10:19 PM DESKTOP OPERATOR us Tashi Thurston MD LAB BLOOD ORDERABLES Final R esult [facility] Department [place] [address] * (ABNORMAL) CBC with auto differential (05/13/2024 9:09 PM DESKTOP OPERATOR) WBC 9.7 3.8 - 9.9 K/cumm Hgb 9.8(L) 13.0 - 17.5 g/dL [facility] Hct 29.9(L) 38.9 - 50.3 % [facility] Plt 194 150 - 400 K/cumm [facility] MPV 11.3 9.1 - 12.3 fL [facility] RBC 3.56(L) 4.30 - 5.80 M/cumm [facility] MCV 84.0 81.3 - 96.4 fL [facility] MCH 27.5 27.1 - 33.3 pg [facility] MCHC 32.8 32.3 - 35.7 g/dL [facility] RDW CV 15.7(H) 11.1 - 14.9 % [facility] RDW SD 48.5(H) 35.7 - 48.1 fL [facility] NRBC abs 0.00 0.00 - 0.01 K/cumm [facility] Blood 05/13/2024 9:09 PM DESKTOP OPERATOR 05/13/2024 10:19 PM DESKTOP OPERATOR us Tashi Thurston MD LAB BLOOD ORDERABLES Final R esult [facility] [place] [address] * Magnesium (05/13/2024 9:09 PM DESKTOP OPERATOR) [facility] Magnesium 2.1 1.4 - 2.5 mg/dL Blood 05/13/2024 9:09 PM DESKTOP OPERATOR 05/13/2024 10:16 PM DESKTOP OPERATOR us Tashi Thurston MD LAB BLOOD ORDERABLES Final R esult [facility] [place] [address] * (ABNORMAL) Comprehensive metabolic panel (05/13/2024 9:09 PM DESKTOP OPERATOR) [facility] Sodium 140 135 - 145 mmol/L Potassium, pl 3.7 3.3 - 4.9 mmol/L [facility] Chloride 106 97 - 110 mmol/L [facility] CO2 26 22 - 32 mmol/L [facility] Anion gap 8 2 - 15 mmol/L [facility] BUN 11 6 - 25 mg/dL [facility] Creatinine 1.18 0.80 - 1.30 mg/dL [facility] Glucose 124 70 - 199 mg/dL [facility] Comment: Interpretive Data Fasting glucose >/= 126 [...] 2022. Calcium 8.6 8.5 - 10.3 mg/dL [facility] Bilirubin, total 0.3 0.1 - 1.2 mg/dL [facility] Protein, pl 6.1(L) 6.5 - 8.5 g/dL [facility] Albumin 2.7(L) 3.5 - 5.0 g/dL [facility] Alk phos 65 40 - 130 Units/L [facility] ALT 21 7 - 55 Units/L [facility] AST 24 10 - 50 Units/L [facility] Blood 05/13/2024 9:09 PM DESKTOP OPERATOR 05/13/2024 10:16 PM DESKTOP OPERATOR us Tashi Thurston MD LAB BLOOD ORDERABLES Final R esult [facility] Department [place] [address] * CT Head WO Contrast (05/13/2024 8:04 PM DESKTOP OPERATOR) Anatomical Region Laterality Modality Head and Neck N/A Computed Tomogra phy 05/13/2024 8:37 PM DESKTOP OPERATOR Impressions 05/13/2024 8:41 PM DESKTOP OPERATOR No acute intracranial process. Dictated by: Saul Mckeon MD The radiology attending physician has personally reviewed this study, and had reviewed and/or edited this written report and agrees with it. Electronically signed by: Gabi Chou M.D. Narrative 05/13/2024 8:41 PM DESKTOP OPERATOR EXAMINATION: CT head without contrast HISTORY: 83-year-old [...] by: Gabi Chou M.D. Sandip Juarez MD IM CT PROCEDURES Final Res ult * XR Chest PA Lateral 2 Views (05/13/2024 8:30 AM DESKTOP OPERATOR) Anatomical Region Laterality Modality Body, Chest N/A Computed Radiogr aphy 05/13/2024 12:4 7 PM DESKTOP OPERATOR Impressions 05/13/2024 12:47 PM DESKTOP OPERATOR Comparison film is dated 03/31/2024. Changes of median sternotomy. 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 ??No broken or abandoned leads. Worsening bibasilar opacities, left greater than right are seen, which likely represent atelectasis. The cardiomediastinal silhouette is stable. There is no pneumothorax. Electronically signed by: Esteban Leonard M.D. Narrative 05/13/2024 12:47 PM DESKTOP OPERATOR EXAMINATION: 2 view chest radiograph Procedure Note Esteban Loenard MD - 05/13/2024 EXAMINATION: 2 view chest radiograph IMPRESSION: Comparison film is dated 03/31/2024. Changes of median sternotomy. 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 No broken or abandoned leads. Worsening bibasilar opacities, left greater than right are seen, which likely represent atelectasis. The cardiomediastinal silhouette is stable. There is no pneumothorax. Electronically signed by: Esteban Leonard M.D. us Tashi Thurston MD IMG XR PROCEDURES Final Resu lt * eGFR (05/13/2024 4:41 AM DESKTOP OPERATOR) [facility] Signature eGFR 68 >=60 mL/min/1. 73 m2 Comment: [...] last reviewed 2021. Blood 05/13/2024 4:41 AM DESKTOP OPERATOR 05/13/2024 7:42 AM DESKTOP OPERATOR us Tashi Thurston MD LAB BLOOD ORDERABLES Final R esult [facility] Department [place] [address] * (ABNORMAL) Differential, auto (05/13/2024 4:41 AM DESKTOP OPERATOR) Neutrophil abs 7.1(H) 1.5 - 6.5 K/cumm Imm gran abs 0.1 0.0 - 0.1 K/cumm [facility] Lymphocyte abs 1.1 0.8 - 3.3 K/cumm [facility] Monocyte abs 0.6 0.2 - 0.8 K/cumm [facility] Eosinophil abs 0.2 0.0 - 0.5 K/cumm [facility] Basophil abs 0.0 0.0 - 0.1 K/cumm [facility] Neutrophil pct 78.4 % [facility] Comment: Interpretive Data Percent cell count reference ranges are not reported, since discordance with absolute values may lead to misinterpretation of CBC data. Current Interpretive Data was last revised on 2017. Imm gran pct 0.6 % [facility] Comment: Interpretive Data Percent cell count reference ranges are not reported, since discordance with absolute values may lead to misinterpretation of CBC data. Current Interpretive Data was last revised on 2017. Lymphocyte pct 12.4 % [facility] Comment: Interpretive Data Percent cell count reference ranges are not reported, since discordance with absolute values may lead to misinterpretation of CBC data. Current Interpretive Data was last revised on 2017. Monocyte pct 6.3 % [facility] Comment: Interpretive Data Percent cell count reference ranges are not reported, since discordance with absolute values may lead to misinterpretation of CBC data. Current Interpretive Data was last revised on 2017. Eosinophil pct 2.1 % [facility] Comment: Interpretive Data Percent cell count reference ranges are not reported, since discordance with absolute values may lead to misinterpretation of CBC data. Current Interpretive Data was last revised on 2017. Basophil pct 0.2 % [facility] Comment: Interpretive Data Percent cell count reference ranges are not reported, since discordance with absolute values may lead to misinterpretation of CBC data. Current Interpretive Data was last revised on 2017. Blood 05/13/2024 4:41 AM DESKTOP OPERATOR 05/13/2024 7:24 AM DESKTOP OPERATOR us Tashi Thurston MD LAB BLOOD ORDERABLES Final R esult [facility] Department [place] [address] * (ABNORMAL) CBC with auto differential (05/13/2024 4:41 AM DESKTOP OPERATOR) WBC 9.1 3.8 - 9.9 K/cumm Hgb 9.7(L) 13.0 - 17.5 g/dL [facility] Hct 30.3(L) 38.9 - 50.3 % [facility] Plt 184 150 - 400 K/cumm [facility] MPV 11.6 9.1 - 12.3 fL [facility] RBC 3.53(L) 4.30 - 5.80 M/cumm [facility] MCV 85.8 81.3 - 96.4 fL [facility] MCH 27.5 27.1 - 33.3 pg [facility] MCHC 32.0(L) 32.3 - 35.7 g/dL [facility] RDW CV 15.8(H) 11.1 - 14.9 % [facility] RDW SD 49.6(H) 35.7 - 48.1 fL [facility] NRBC abs 0.00 0.00 - 0.01 K/cumm [facility] Blood 05/13/2024 4:41 AM DESKTOP OPERATOR 05/13/2024 7:24 AM DESKTOP OPERATOR us Tashi Thurston MD LAB BLOOD ORDERABLES Final R esult [facility] Department [place] [address] * (ABNORMAL) Blood culture Blood (05/13/2024 4:41 AM DESKTOP OPERATOR) Direct Specimen Exam Stain: Gram Positive Cocci in clusters Time to culture positivity (aerobic media): 17.6 hours Time to culture positivity (anaerobic media): 22.5 hours Report Final Report: Staphylococcus aureus For susceptibility results, refer to accession number [id number] on the blood culture from 05/13/2024 (.) [facility] Organism STAPHYLOCOCCUS AUREUS [facility] Blood 05/13/2024 4:41 AM DESKTOP OPERATOR 05/13/2024 7:55 AM DESKTOP OPERATOR Narrative [facility] - 05/18/2024 10:29 AM DESKTOP OPERATOR From a different site than #1. Collection->Peripheral [...] performance characteristics have been verified by the [facility] Microbiology Laboratory. For questions about this culture, contact the Microbiology Laboratory at [phone]. Interpretive data was last revised on 24. us Tashi Thurston MD LAB MICROBIOLOGY - GENERAL O RDERABLES Final Result [facility] Department [place] [address] * (ABNORMAL) Blood culture Blood (05/13/2024 4:41 AM DESKTOP OPERATOR) [facility] Direct Specimen Exam Molecular Analysis: Methicillin-resist ant Staphylococcus aureus (MRSA) detected by the [facility] BCID-GP panel. ??This test does not exclud the possibility of a mixed bacterial infection. Notification of: Methicillin-resist ant Staphylococcus aureus (MRSA) called to and read back by: Db Styles MD [phone] on 05/14/2024 03:30:11 by: Danya Hunter MT Direct Specimen Exam Stain: Gram Positive Cocci in clusters Time to culture positivity (aerobic media): 16.2 hours Time to culture positivity (anaerobic media): 17.3 hours Notification of: Gram Positive Cocci in clusters called to and read back by: Db Styles MD [phone] on 05/14/2024 01:01:29 by: Danya Hnuter MT [facility] Report Final Report: Staphylococcus aureus Methicillin resistant (MRSA) by penicillin binding protein 2a (PBP2a) testing. (.) [facility] Organism STAPHYLOCOCCUS AUREUS [facility] Blood 05/13/2024 4:41 AM DESKTOP OPERATOR 05/13/2024 7:55 AM DESKTOP OPERATOR Narrative [facility] - 05/18/2024 10:20 AM DESKTOP OPERATOR Collection->Peripheral 1. ?Blood cultures are incubated for [...] performance characteristics have been verified by the [facility] Microbiology Laboratory. For questions about this culture, contact the Microbiology Laboratory at [phone]. Interpretive data was last revised on 24. [...] MICROBIOLOGY - GENERAL O RDERABLES Final Result [facility] Department [place] [address] * Type and screen (05/13/2024 4:41 AM DESKTOP OPERATOR) Julien, indirect Negative ABO Rh B Positive [facility] Blood 05/13/2024 4:41 AM DESKTOP OPERATOR 05/13/2024 7:35 AM DESKTOP OPERATOR Narrative [facility] - 05/13/2024 9:23 AM DESKTOP OPERATOR Has the patient had Daratumumab or Isatuximab in the past 6 months?->Unknown Tashi Thurston MD LAB BLOOD BANK TEST ORDERABL ES Final Result Performing Organization Address [facility] de Phone Number [facility] [place] [address] * Magnesium (05/13/2024 4:41 AM DESKTOP OPERATOR) [facility] Magnesium 2.1 1.4 - 2.5 mg/dL Blood 05/13/2024 4:41 AM DESKTOP OPERATOR 05/13/2024 7:24 AM DESKTOP OPERATOR Tashi Thurston MD LAB BLOOD ORDERABLES Final R esult Performing Organization Address [facility] de Phone Number [facility] [place] [address] * Creatine kinase (CK), total (05/13/2024 4:41 AM DESKTOP OPERATOR) [facility] CK 59 40 - 300 Units/L Comment:Hemolyzed; result ma y be falsely elevated Blood 05/13/2024 4:41 AM DESKTOP OPERATOR 05/13/2024 7:24 AM DESKTOP OPERATOR Tashi Thurston MD LAB BLOOD ORDERABLES Final R esult Performing Organization Address [facility] de Phone Number [facility] [place] [address] * (ABNORMAL) Comprehensive metabolic panel (05/13/2024 4:41 AM DESKTOP OPERATOR) [facility] Sodium 139 135 - 145 mmol/L Potassium, pl 3.8 3.3 - 4.9 mmol/L [facility] Chloride 103 97 - 110 mmol/L [facility] CO2 25 22 - 32 mmol/L [facility] Anion gap 11 2 - 15 mmol/L [facility] BUN 12 6 - 25 mg/dL [facility] Creatinine 1.08 0.80 - 1.30 mg/dL [facility] Glucose 79 70 - 199 mg/dL [facility] Comment: Interpretive Data Fasting glucose >/= 126 [...] 2022. Calcium 8.7 8.5 - 10.3 mg/dL [facility] Bilirubin, total 0.4 0.1 - 1.2 mg/dL [facility] Protein, pl 6.0(L) 6.5 - 8.5 g/dL [facility] Albumin 2.8(L) 3.5 - 5.0 g/dL [facility] Alk phos 61 40 - 130 Units/L [facility] ALT 21 7 - 55 Units/L [facility] AST 35 10 - 50 Units/L [facility] Blood 05/13/2024 4:41 AM DESKTOP OPERATOR 05/13/2024 7:24 AM DESKTOP OPERATOR us Tashi Thurston MD LAB BLOOD ORDERABLES Final R esult [facility] [place] [address] * ECG 12 lead (05/13/2024 3:49 AM DESKTOP OPERATOR) Ventricular Rate EKG/Min 62 BPM [facility] Atrial Rate 258 BPM [facility] QRS-Interval (MSEC) 200 ms [facility] QT-Interval (MSEC) 524 ms [facility] QTc 531 ms [facility] R [place] -69 degrees [facility] T [place] 87 degrees [facility] Diagnosis Ventricular-pa federico rhythm with frequent Premature ventricular complexes Abnormal ECG When compared with ECG of 31-MAR-2024 01:44, Premature ventricular complexes are now Present Confirmed by JOEY CAICEDO M.D ([id number]) on 05/15/2024 9:37:13 AM [facility] 05/13/2024 3:49 AM DESKTOP OPERATOR 05/15/2024 9:37 AM DESKTOP OPERATOR us Tashi Thurston MD ECG ORDERABLES Final Result [facility] * SCAN - RADIOLOGY/IMAGING (05/12/2024 11:04 AM DESKTOP OPERATOR) Anatomical Region Laterality Modality Other us Robert Whitlock MD Final Result * Cardiology Document Scan (05/08/2024 3:35 PM DESKTOP OPERATOR) Anatomical Region Laterality Modality Other us Robert Whitlock MD [facility] PROCEDURE S Final Result * SCAN - RADIOLOGY/IMAGING (05/08/2024 6:27 AM DESKTOP OPERATOR) Anatomical Region Laterality Modality Other us Robert Whitlock MD Final Result * SCAN - RADIOLOGY/IMAGING (05/06/2024 4:44 PM DESKTOP OPERATOR) Anatomical Region Laterality Modality Other us Robert Whitlock MD Final Result * Cardiology Document Scan (05/05/2024 1:20 PM DESKTOP OPERATOR) Anatomical Region Laterality Modality Other us Deepti Whaley MD CV CARDIAC SERVICES PROCEDU RES Final Result * SCAN - RADIOLOGY/IMAGING (05/05/2024 11:06 AM DESKTOP OPERATOR) Anatomical Region Laterality Modality Other us Robert Whitlock MD Final Result * SCAN - LABS (05/04/2024 6:06 PM DESKTOP OPERATOR) Robert Whitlock MD Final Result * SCAN - RADIOLOGY/IMAGING (05/04/2024 5:26 PM DESKTOP OPERATOR) Anatomical Region Laterality Modality Other Robert Whitlock MD Final Result * SCAN - LABS (05/04/2024 4:59 PM DESKTOP OPERATOR) Robert Whitlock MD Final Result * DEVICE CHECK - IN OFFICE (04/18/2024 11:07 AM DESKTOP OPERATOR) Anatomical Region Laterality Modality Other 04/18/2024 2:00 AM DESKTOP OPERATOR Narrative 04/19/2024 11:27 AM DESKTOP OPERATOR Interpretation Summary: Battery and Leads (BL) Normal parameters noted on battery and lead(s) Presenting Rhythm ([place]) Atrial Fibrillation or Flutter Ventricular Pacing (SYNCHRONIZER) Arrhythmic events (AE) Atrial fibrillation and/or flutter with controlled ventricular rate Anticoagulation ??(AC) Patient on anticoagulant therapy Patient prescribed Apixaban (Eliquis) Procedure Note Lydia Aparicio MD - 04/19/2024 Interpretation Summary: Battery and Leads (BL) Normal parameters noted on battery and lead(s) Presenting Rhythm ([place]) Atrial Fibrillation or Flutter Ventricular Pacing (SYNCHRONIZER) Arrhythmic events (AE) Atrial fibrillation and/or flutter with controlled ventricular rate Anticoagulation (AC) Patient on anticoagulant therapy Patient prescribed Apixaban (Eliquis) Kelsie Guillen TRAUMA COORDINATOR CV CARDIAC SERVICES [place] OCEDURES Final Result * eGFR (04/05/2024 2:33 AM DESKTOP OPERATOR) eGFR 70 >=60 mL/min/1. 73 m2 Comment: [...] last reviewed 2021. Blood 04/05/2024 2:33 AM DESKTOP OPERATOR 04/05/2024 3:04 AM DESKTOP OPERATOR us Shane Alfredo MD LAB BLOOD ORDERABLES Fi nal Result [facility] Department [place] [address] * Differential, auto (04/05/2024 2:33 AM DESKTOP OPERATOR) Pathologist [facility] Neutrophil abs 5.7 1.5 - 6.5 K/cumm Imm gran abs 0.0 0.0 - 0.1 K/cumm [facility] Lymphocyte abs 1.4 0.8 - 3.3 K/cumm [facility] Monocyte abs 0.8 0.2 - 0.8 K/cumm [facility] Eosinophil abs 0.5 0.0 - 0.5 K/cumm [facility] Basophil abs 0.0 0.0 - 0.1 K/cumm [facility] Neutrophil pct 66.9 % [facility] Comment: Interpretive Data Percent cell count reference ranges are not reported, since discordance with absolute values may lead to misinterpretation of CBC data. Current Interpretive Data was last revised on 2017. Imm gran pct 0.4 % [facility] Comment: Interpretive Data Percent cell count reference ranges are not reported, since discordance with absolute values may lead to misinterpretation of CBC data. Current Interpretive Data was last revised on 2017. Lymphocyte pct 17.0 % [facility] Comment: Interpretive Data Percent cell count reference ranges are not reported, since discordance with absolute values may lead to misinterpretation of CBC data. Current Interpretive Data was last revised on 2017. Monocyte pct 9.1 % [facility] Comment: Interpretive Data Percent cell count reference ranges are not reported, since discordance with absolute values may lead to misinterpretation of CBC data. Current Interpretive Data was last revised on 2017. Eosinophil pct 6.2 % [facility] Comment: Interpretive Data Percent cell count reference ranges are not reported, since discordance with absolute values may lead to misinterpretation of CBC data. Current Interpretive Data was last revised on 2017. Basophil pct 0.4 % [facility] Comment: Interpretive Data Percent cell count reference ranges are not reported, since discordance with absolute values may lead to misinterpretation of CBC data. Current Interpretive Data was last revised on 2017. Blood 04/05/2024 2:33 AM DESKTOP OPERATOR 04/05/2024 3:08 AM DESKTOP OPERATOR us Shane Alfredo MD LAB BLOOD ORDERABLES Fi nal Result Performing Organization Address City/State/[facility] Co de Phone Number [facility] Department [place] [address] * (ABNORMAL) CBC with auto differential (04/05/2024 2:33 AM DESKTOP OPERATOR) WBC 8.6 3.8 - 9.9 K/cumm Hgb 8.7(L) 13.0 - 17.5 g/dL [facility] Hct 27.1(L) 38.9 - 50.3 % [facility] Plt 250 150 - 400 K/cumm [facility] MPV 10.1 9.1 - 12.3 fL [facility] RBC 3.03(L) 4.30 - 5.80 M/cumm [facility] MCV 89.4 81.3 - 96.4 fL [facility] MCH 28.7 27.1 - 33.3 pg [facility] MCHC 32.1(L) 32.3 - 35.7 g/dL [facility] RDW CV 13.8 11.1 - 14.9 % [facility] RDW SD 45.1 35.7 - 48.1 fL [facility] NRBC abs 0.00 0.00 - 0.01 K/cumm [facility] Blood 04/05/2024 2:33 AM DESKTOP OPERATOR 04/05/2024 3:08 AM DESKTOP OPERATOR us Shane Alfredo MD LAB BLOOD ORDERABLES Fi nal Result [facility] Department [place] [address] * (ABNORMAL) CBC without differential (04/05/2024 2:33 AM DESKTOP OPERATOR) Pathologist [facility] WBC 8.6 3.8 - 9.9 K/cumm Hgb 8.7(L) 13.0 - 17.5 g/dL [facility] Hct 27.1(L) 38.9 - 50.3 % [facility] Plt 250 150 - 400 K/cumm [facility] MPV 10.1 9.1 - 12.3 fL [facility] RBC 3.03(L) 4.30 - 5.80 M/cumm [facility] MCV 89.4 81.3 - 96.4 fL [facility] MCH 28.7 27.1 - 33.3 pg [facility] MCHC 32.1(L) 32.3 - 35.7 g/dL [facility] RDW CV 13.8 11.1 - 14.9 % [facility] RDW SD 45.1 35.7 - 48.1 fL [facility] NRBC abs 0.00 0.00 - 0.01 K/cumm [facility] Blood 04/05/2024 2:33 AM DESKTOP OPERATOR 04/05/2024 3:04 AM DESKTOP OPERATOR Apolonia Briseno NP LAB BLOOD ORDERABLES Final Result Performing Organization Address City/[facility] Co de Phone Number [facility] [place] [address] * (ABNORMAL) Creatine kinase (CK), total (04/05/2024 2:33 AM DESKTOP OPERATOR) Pathologist [facility] CK 29(L) 40 - 300 Units/L Blood 04/05/2024 2:33 AM DESKTOP OPERATOR 04/05/2024 3:04 AM DESKTOP OPERATOR Apolonia Briseno TRAUMA COORDINATOR LAB BLOOD ORDERABLES Final Result Performing Organization Address [facility] [place] [address] * (ABNORMAL) Hepatic function panel (04/05/2024 2:33 AM DESKTOP OPERATOR) Pathologist [facility] Bilirubin, total 0.4 0.1 - 1.2 mg/dL Bilirubin, direct <0.2 0.1 - 0.3 mg/dL [facility] Protein, pl 6.4(L) 6.5 - 8.5 g/dL [facility] Albumin 2.8(L) 3.5 - 5.0 g/dL [facility] Alk phos 64 40 - 130 Units/L [facility] ALT 27 7 - 55 Units/L [facility] AST 25 10 - 50 Units/L [facility] Blood 04/05/2024 2:33 AM DESKTOP OPERATOR 04/05/2024 3:04 AM DESKTOP OPERATOR Apolonia Briseno TRAUMA COORDINATOR LAB BLOOD ORDERABLES Final Result Performing Organization Address [facility] [place] [address] * Basic metabolic panel (04/05/2024 2:33 AM DESKTOP OPERATOR) Pathologist [facility] Sodium 142 135 - 145 mmol/L Potassium, pl 4.6 3.3 - 4.9 mmol/L [facility] Chloride 106 97 - 110 mmol/L [facility] CO2 25 22 - 32 mmol/L [facility] Anion gap 11 2 - 15 mmol/L [facility] BUN 20 6 - 25 mg/dL [facility] Creatinine 1.05 0.80 - 1.30 mg/dL [facility] Glucose 111 70 - 199 mg/dL [facility] Comment: Interpretive Data Fasting glucose >/= 126 [...] 2022. Calcium 8.8 8.5 - 10.3 mg/dL [facility] Blood 04/05/2024 2:33 AM DESKTOP OPERATOR 04/05/2024 3:04 AM DESKTOP OPERATOR us Shane Alfredo MD LAB BLOOD ORDERABLES Fi nal Result [facility] Department [place] [address] * eGFR (04/04/2024 4:18 AM DESKTOP OPERATOR) Pathologist [facility] eGFR 66 >=60 mL/min/1. 73 m2 Comment: [...] last reviewed 2021. Blood 04/04/2024 4:18 AM DESKTOP OPERATOR 04/04/2024 5:05 AM DESKTOP OPERATOR us Shane Alfredo MD LAB BLOOD ORDERABLES Fi nal Result [facility] Department [place] [address] * Basic metabolic panel (04/04/2024 4:18 AM DESKTOP OPERATOR) Sodium 137 135 - 145 mmol/L Potassium, pl 4.5 3.3 - 4.9 mmol/L [facility] Chloride 103 97 - 110 mmol/L [facility] CO2 27 22 - 32 mmol/L [facility] Anion gap 7 2 - 15 mmol/L [facility] BUN 22 6 - 25 mg/dL [facility] Creatinine 1.10 0.80 - 1.30 mg/dL [facility] Glucose 104 70 - 199 mg/dL [facility] Comment: Interpretive Data Fasting glucose >/= 126 [...] 2022. Calcium 8.9 8.5 - 10.3 mg/dL [facility] Blood 04/04/2024 4:18 AM DESKTOP OPERATOR 04/04/2024 5:05 AM DESKTOP OPERATOR us Shane Alfredo MD LAB BLOOD ORDERABLES Fi nal Result [facility] Department [place] [address] * eGFR (04/03/2024 6:01 AM DESKTOP OPERATOR) eGFR 68 >=60 mL/min/1. 73 m2 Comment: [...] last reviewed 2021. Blood 04/03/2024 6:01 AM DESKTOP OPERATOR 04/03/2024 6:26 AM DESKTOP OPERATOR us Shane Alfredo MD LAB BLOOD ORDERABLES Fi nal Result Performing Organization Address [facility]/ZIP Co de Phone Number [facility] Department [place] [address] * (ABNORMAL) CBC without differential (04/03/2024 6:01 AM DESKTOP OPERATOR) Pathologist [facility] WBC 8.5 3.8 - 9.9 K/cumm Hgb 8.8(L) 13.0 - 17.5 g/dL [facility] Hct 27.0(L) 38.9 - 50.3 % [facility] Plt 205 150 - 400 K/cumm [facility] MPV 10.0 9.1 - 12.3 fL [facility] RBC 3.05(L) 4.30 - 5.80 M/cumm [facility] MCV 88.5 81.3 - 96.4 fL [facility] MCH 28.9 27.1 - 33.3 pg [facility] MCHC 32.6 32.3 - 35.7 g/dL [facility] RDW CV 13.7 11.1 - 14.9 % [facility] RDW SD 44.4 35.7 - 48.1 fL [facility] NRBC abs 0.00 0.00 - 0.01 K/cumm [facility] Blood 04/03/2024 6:01 AM DESKTOP OPERATOR 04/03/2024 6:26 AM DESKTOP OPERATOR us Apolonia Briseno NP LAB BLOOD ORDERABLES Final Result Performing Organization Address City/[facility]/ZIP Co de Phone Number [facility] Department [place] [address] * Basic metabolic panel (04/03/2024 6:01 AM DESKTOP OPERATOR) Pathologist [facility] Sodium 138 135 - 145 mmol/L Potassium, pl 4.5 3.3 - 4.9 mmol/L [facility] Chloride 103 97 - 110 mmol/L [facility] CO2 26 22 - 32 mmol/L [facility] Anion gap 9 2 - 15 mmol/L [facility] BUN 22 6 - 25 mg/dL [facility] Creatinine 1.08 0.80 - 1.30 mg/dL [facility] Glucose 102 70 - 199 mg/dL [facility] Comment: Interpretive Data Fasting glucose >/= 126 [...] 2022. Calcium 8.7 8.5 - 10.3 mg/dL [facility] Blood 04/03/2024 6:01 AM DESKTOP OPERATOR 04/03/2024 6:26 AM DESKTOP OPERATOR us Shane Alfredo MD LAB BLOOD ORDERABLES Fi nal Result [facility] Department [place] [address] * (ABNORMAL) eGFR (04/02/2024 3:56 AM DESKTOP OPERATOR) [facility] eGFR 58(L) >=60 mL/min/1. 73 m2 [...] last reviewed 2021. Blood 04/02/2024 3:56 AM DESKTOP OPERATOR 04/02/2024 4:42 AM DESKTOP OPERATOR us Shane Alfredo MD LAB BLOOD ORDERABLES Fi nal Result [facility] Department [place] [address] * Basic metabolic panel (04/02/2024 3:56 AM DESKTOP OPERATOR) Pathologist [facility] Sodium 137 135 - 145 mmol/L Potassium, pl 4.6 3.3 - 4.9 mmol/L [facility] Chloride 104 97 - 110 mmol/L [facility] CO2 26 22 - 32 mmol/L [facility] Anion gap 7 2 - 15 mmol/L [facility] BUN 22 6 - 25 mg/dL [facility] Creatinine 1.23 0.80 - 1.30 mg/dL [facility] Glucose 105 70 - 199 mg/dL [facility] Comment: Interpretive Data Fasting glucose >/= 126 [...] Calcium 9.0 8.5 - 10.3 mg/dL [facility] Blood 04/02/2024 3:56 AM DESKTOP OPERATOR 04/02/2024 4:42 AM DESKTOP OPERATOR us Shane Alfredo MD LAB BLOOD ORDERABLES Fi nal Result [facility] Department [place] [address] * eGFR (04/01/2024 3:30 AM DESKTOP OPERATOR) eGFR 60 >=60 mL/min/1. 73 m2 Comment: [...] last reviewed 2021. Blood 04/01/2024 3:30 AM DESKTOP OPERATOR 04/01/2024 3:51 AM DESKTOP OPERATOR Shane Alfredo MD LAB BLOOD ORDERABLES Fi nal Result Performing Organization Address [facility] Co de Phone Number [facility] Department [place] [address] * Basic metabolic panel (04/01/2024 3:30 AM DESKTOP OPERATOR) [facility] Sodium 136 135 - 145 mmol/L Potassium, pl 4.7 3.3 - 4.9 mmol/L [facility] Chloride 104 97 - 110 mmol/L [facility] CO2 25 22 - 32 mmol/L [facility] Anion gap 7 2 - 15 mmol/L [facility] BUN 22 6 - 25 mg/dL [facility] Creatinine 1.19 0.80 - 1.30 mg/dL [facility] Glucose 123 70 - 199 mg/dL [facility] Comment: Interpretive Data Fasting glucose >/= 126 [...] 2022. Calcium 8.6 8.5 - 10.3 mg/dL [facility] Blood 04/01/2024 3:30 AM DESKTOP OPERATOR 04/01/2024 3:51 AM DESKTOP OPERATOR Shane Alfredo MD LAB BLOOD ORDERABLES Fi nal Result Performing Organization Address [facility] Co de Phone Number [facility] Department [place] [address] * X-ray chest 2 views (03/31/2024 3:37 PM DESKTOP OPERATOR) Anatomical Region Laterality Modality Body, Chest N/A Computed Radiogr aphy 03/31/2024 3:47 PM DESKTOP OPERATOR Impressions 03/31/2024 3:47 PM DESKTOP OPERATOR Comparison is made to prior chest radiograph [...] Isabel Black M.D. Narrative 03/31/2024 3:47 PM DESKTOP OPERATOR EXAMINATION: 2 view chest radiograph Procedure Note [...] size. Electronically signed by: Isabel Black M.D. Shane Alfredo MD IMG XR PROCEDURES Final Result * (ABNORMAL) CBC without differential (03/31/2024 9:09 AM DESKTOP OPERATOR) WBC 8.6 3.8 - 9.9 K/cumm Hgb 9.8(L) 13.0 - 17.5 g/dL [facility] Hct 31.2(L) 38.9 - 50.3 % [facility] Plt 222 150 - 400 K/cumm [facility] MPV 10.1 9.1 - 12.3 fL [facility] RBC 3.44(L) 4.30 - 5.80 M/cumm [facility] MCV 90.7 81.3 - 96.4 fL [facility] MCH 28.5 27.1 - 33.3 pg [facility] MCHC 31.4(L) 32.3 - 35.7 g/dL [facility] RDW CV 13.8 11.1 - 14.9 % [facility] RDW SD 46.0 35.7 - 48.1 fL [facility] NRBC abs 0.00 0.00 - 0.01 K/cumm [facility] Blood 03/31/2024 9:09 AM DESKTOP OPERATOR 03/31/2024 9:41 AM DESKTOP OPERATOR Doris Epstein TRAUMA COORDINATOR LAB BLOOD ORDERABLES Final Result [facility] Department [place] [address] * eGFR (03/31/2024 4:41 AM DESKTOP OPERATOR) eGFR 63 >=60 mL/min/1. 73 m2 Comment: [...] last reviewed 2021. Blood 03/31/2024 4:41 AM DESKTOP OPERATOR 03/31/2024 5:27 AM DESKTOP OPERATOR us Shane Alfredo MD LAB BLOOD ORDERABLES Fi nal Result Performing Organization Address City/[facility]/ZIP Co de Phone Number [facility] Department [place] [address] * (ABNORMAL) CBC without differential (03/31/2024 4:41 AM DESKTOP OPERATOR) WBC 7.8 3.8 - 9.9 K/cumm Hgb 9.1(L) 13.0 - 17.5 g/dL [facility] Hct 28.1(L) 38.9 - 50.3 % [facility] Plt 201 150 - 400 K/cumm [facility] MPV 10.1 9.1 - 12.3 fL [facility] RBC 3.17(L) 4.30 - 5.80 M/cumm [facility] MCV 88.6 81.3 - 96.4 fL [facility] MCH 28.7 27.1 - 33.3 pg [facility] MCHC 32.4 32.3 - 35.7 g/dL [facility] RDW CV 13.7 11.1 - 14.9 % [facility] RDW SD 44.8 35.7 - 48.1 fL [facility] NRBC abs 0.00 0.00 - 0.01 K/cumm [facility] Blood 03/31/2024 4:41 AM DESKTOP OPERATOR 03/31/2024 5:29 AM DESKTOP OPERATOR us Apolonia Briseno NP LAB BLOOD ORDERABLES Final Result Performing Organization Address City/[facility]/ZIP Co de Phone Number [facility] Department [place] [address] * Basic metabolic panel (03/31/2024 4:41 AM DESKTOP OPERATOR) [facility] Sodium 137 135 - 145 mmol/L Potassium, pl 4.5 3.3 - 4.9 mmol/L [facility] Chloride 104 97 - 110 mmol/L [facility] CO2 27 22 - 32 mmol/L [facility] Anion gap 6 2 - 15 mmol/L [facility] BUN 17 6 - 25 mg/dL [facility] Creatinine 1.14 0.80 - 1.30 mg/dL [facility] Glucose 119 70 - 199 mg/dL [facility] Comment: Interpretive Data Fasting glucose >/= 126 [...] 2022. Calcium 8.8 8.5 - 10.3 mg/dL [facility] Blood 03/31/2024 4:41 AM DESKTOP OPERATOR 03/31/2024 5:27 AM DESKTOP OPERATOR us Shane Alfredo MD LAB BLOOD ORDERABLES Fi nal Result [facility] Department [place] [address] * ECG 12 lead (03/31/2024 1:44 AM DESKTOP OPERATOR) [facility] Ventricular Rate EKG/Min 61 BPM [facility] Atrial Rate 277 BPM [facility] QRS-Interval (MSEC) 126 ms [facility] QT-Interval (MSEC) 440 ms [facility] QTc 442 ms [facility] R [place] -54 degrees [facility] [place] 62 degrees [facility] Diagnosis Electronic ventricular pacemaker Left axis deviation Left bundle branch block Abnormal ECG When compared with ECG of 16-FEB-2022 10:33, Left bundle branch block is now Present Criteria for Anterior infarct are no longer Present Confirmed by LAMAR SOTO M.D ([id number]) on 04/04/2024 4:04:08 PM [facility] 03/31/2024 1:44 AM DESKTOP OPERATOR 04/04/2024 4:04 PM DESKTOP OPERATOR us Shane Alfredo MD ECG ORDERABLES Final R esult [facility] * IR Central Line Placement > 5 Years (03/30/2024 3:58 PM DESKTOP OPERATOR) Anatomical Region Laterality Modality Body N/A X-Ray Angiograph y 03/30/2024 4:25 PM DESKTOP OPERATOR Impressions 03/30/2024 4:25 PM DESKTOP OPERATOR Successful nontunneled catheter placement (5-Norwegian dual lumen). PLAN: The catheter is ready for immediate use. ??When treatment is completed, this catheter can be removed at the bedside according to standard hospital protocol. ?? 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 ?? SEDATION: Local anesthetic only TECHNIQUE: ?? The risks, benefits and alternatives were discussed and informed consent was obtained. ??Prior to beginning the procedure, [place] Protocol was used to confirm the patient's [...] was assessed. After dilating the tract, a 5-Norwegian dual lumen titi trimmed to the appropriate [...] was obtained. Prior to beginning the procedure, [place] Protocol was used to confirm the patient's [...] was assessed. After dilating the tract, a 5-Norwegian dual lumen titi trimmed to the appropriate [...] are seen. IMPRESSION: Successful nontunneled catheter placement (5-Norwegian dual lumen). PLAN: The catheter is ready for immediate use. When treatment is completed, this catheter can be removed at the bedside according to standard hospital protocol. Electronically signed by: Shyanne Craig MD Armando Dodson TRAUMA COORDINATOR IMG IR PROCEDURES Final Re sult * X-ray chest 1 view (Portable) (03/30/2024 11:43 AM DESKTOP OPERATOR) Anatomical Region Laterality Modality Body, Chest N/A Computed Radiogr aphy 03/30/2024 11:4 5 AM DESKTOP OPERATOR Impressions 03/30/2024 11:45 AM DESKTOP OPERATOR Comparison is made to prior from 03/21/2024. ??A left subclavian approach 2-lead pacemaker has been placed with a lead overlying the right atrium. ??The right ventricular lead is not fully included in the [id number]. The heart and mediastinum are unchanged. ??There is an airspace opacity in the right lung base, likely atelectasis. ??Mild left basilar atelectasis. ??No pleural effusion or pneumothorax. Electronically signed by: Zaheer Downing M.D. Narrative 03/30/2024 11:45 AM DESKTOP OPERATOR EXAMINATION: 1 view chest radiograph Procedure Note Zaheer Downing MD - 03/30/2024 EXAMINATION: 1 view chest radiograph IMPRESSION: Comparison is made to prior from 03/21/2024. A left subclavian approach 2-lead pacemaker has been placed with a lead overlying the right atrium. The right ventricular lead is not fully included in the [id number]. The heart and mediastinum are unchanged. There [...] REMOVE/EXTRACT ONE PACEMAKER LEAD (03/30/2024 10:57 AM DESKTOP OPERATOR) Anatomical Region Laterality Modality X-Ray Angiograph y Narrative 03/30/2024 11:05 AM DESKTOP OPERATOR [facility] ? Cardiac Electrophysiology Laboratory [facility] Electrophysiology Procedure Report Dual Chamber Pacemaker Implant Patient Name: Kelsie Vo Date of : 1940 ?? Procedure Date: 03/30/2024 Procedure Duration: 130 min Fluoroscopy Dose: 152 mGy Name of procedure: Implantation of a Dual Chamber PPM Extraction of an externalized single chamber PPM lead History: 83M recently presented to [facility] with fevers and altered mental status. 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 The patient was instructed to come to [facility]. 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 Serial number: [id number] RA Lead: ??[id number] ?? Serial number: [id number] RV Lead: [id number] ?? Serial number: [id number] ?? Parameters: RA: ??P-wave amplitude: AF 1.1 [...] confirmed this report. Jayro Phan M.D., PhD. splicer machine operator [facility] in [place] Kelsie Guillen NP CV ELECTROPHYSIOLOGY P ROCS Final Result * eGFR (03/30/2024 3:36 AM DESKTOP OPERATOR) eGFR 75 >=60 mL/min/1. 73 m2 Comment: [...] last reviewed 2021. Blood 03/30/2024 3:36 AM DESKTOP OPERATOR 03/30/2024 4:28 AM DESKTOP OPERATOR us Shane Alfredo MD LAB BLOOD ORDERABLES Fi nal Result [facility] Department [place] [address] * Basic metabolic panel (03/30/2024 3:36 AM DESKTOP OPERATOR) Sodium 135 135 - 145 mmol/L Potassium, pl 4.6 3.3 - 4.9 mmol/L [facility] Chloride 102 97 - 110 mmol/L [facility] CO2 24 22 - 32 mmol/L [facility] Anion gap 9 2 - 15 mmol/L [facility] BUN 19 6 - 25 mg/dL [facility] Creatinine 0.99 0.80 - 1.30 mg/dL [facility] Glucose 108 70 - 199 mg/dL [facility] Comment: Interpretive Data Fasting glucose >/= 126 [...] 2022. Calcium 8.9 8.5 - 10.3 mg/dL [facility] Blood 03/30/2024 3:36 AM DESKTOP OPERATOR 03/30/2024 4:28 AM DESKTOP OPERATOR us Shane Alfredo MD LAB BLOOD ORDERABLES Fi nal Result Performing Organization Address [facility] Co de Phone Number [facility] Department [place] [address] * eGFR (03/29/2024 3:21 AM DESKTOP OPERATOR) eGFR 69 >=60 mL/min/1. 73 m2 Comment: [...] last reviewed 2021. Blood 03/29/2024 3:21 AM DESKTOP OPERATOR 03/29/2024 4:54 AM DESKTOP OPERATOR us Shane Alfredo MD LAB BLOOD ORDERABLES Fi nal Result Performing Organization Address [facility] Co de Phone Number [facility] Department of [employer] [place], [place] [id number] * (ABNORMAL) CBC without differential (03/29/2024 3:21 AM DESKTOP OPERATOR) [facility] WBC 9.7 3.8 - 9.9 K/cumm Hgb 11.0(L) 13.0 - 17.5 g/dL [facility] Hct 33.8(L) 38.9 - 50.3 % [facility] Plt 214 150 - 400 K/cumm [facility] MPV 10.7 9.1 - 12.3 fL [facility] RBC 3.77(L) 4.30 - 5.80 M/cumm [facility] MCV 89.7 81.3 - 96.4 fL [facility] MCH 29.2 27.1 - 33.3 pg [facility] MCHC 32.5 32.3 - 35.7 g/dL [facility] RDW CV 13.7 11.1 - 14.9 % [facility] RDW SD 44.7 35.7 - 48.1 fL [facility] NRBC abs 0.00 0.00 - 0.01 K/cumm [facility] Blood 03/29/2024 3:21 AM DESKTOP OPERATOR 03/29/2024 4:32 AM DESKTOP OPERATOR Apolonia Briseno LAB BLOOD ORDERABLES Final Result Performing Organization Address [facility] Co de Phone Number [facility] [place] [employer] [address] * (ABNORMAL) Creatine kinase (CK), total (03/29/2024 3:21 AM DESKTOP OPERATOR) [facility] CK 37(L) 40 - 300 Units/L Blood 03/29/2024 3:21 AM DESKTOP OPERATOR 03/29/2024 4:32 AM DESKTOP OPERATOR Apolonia Briseno TRAUMA COORDINATOR LAB BLOOD ORDERABLES Final Result [facility] [place] [employer] [address] * (ABNORMAL) Hepatic function panel (03/29/2024 3:21 AM DESKTOP OPERATOR) [facility] Bilirubin, total 0.5 0.1 - 1.2 mg/dL Bilirubin, direct <0.2 0.1 - 0.3 mg/dL [facility] Protein, pl 7.0 6.5 - 8.5 g/dL [facility] Albumin 3.3(L) 3.5 - 5.0 g/dL [facility] Alk phos 70 40 - 130 Units/L [facility] ALT 17 7 - 55 Units/L [facility] AST 21 10 - 50 Units/L [facility] Blood 03/29/2024 3:21 AM DESKTOP OPERATOR 03/29/2024 4:32 AM DESKTOP OPERATOR Apolonia Briseno TRAUMA COORDINATOR LAB BLOOD ORDERABLES Final Result [facility] Department [place] [address] * Basic metabolic panel (03/29/2024 3:21 AM DESKTOP OPERATOR) [facility] Sodium 136 135 - 145 mmol/L Potassium, pl 4.6 3.3 - 4.9 mmol/L [facility] Chloride 100 97 - 110 mmol/L [facility] CO2 26 22 - 32 mmol/L [facility] Anion gap 10 2 - 15 mmol/L [facility] BUN 19 6 - 25 mg/dL [facility] Creatinine 1.06 0.80 - 1.30 mg/dL [facility] Glucose 105 70 - 199 mg/dL [facility] Comment: Interpretive Data Fasting glucose >/= 126 [...] 2022. Calcium 9.4 8.5 - 10.3 mg/dL [facility] Blood 03/29/2024 3:21 AM DESKTOP OPERATOR 03/29/2024 4:32 AM DESKTOP OPERATOR Shane Alfredo MD LAB BLOOD ORDERABLES Fi nal Result [facility] Department [place] [address] * eGFR (03/28/2024 3:21 AM DESKTOP OPERATOR) eGFR 73 >=60 mL/min/1. 73 m2 Comment: [...] last reviewed 2021. Blood 03/28/2024 3:21 AM DESKTOP OPERATOR 03/28/2024 4:26 AM DESKTOP OPERATOR Shane Alfredo MD LAB BLOOD ORDERABLES Fi nal Result [facility] Department [place] [address] * (ABNORMAL) Basic metabolic panel (03/28/2024 3:21 AM DESKTOP OPERATOR) Sodium 133(L) 135 - 145 mmol/L Potassium, pl 4.6 3.3 - 4.9 mmol/L [facility] Chloride 101 97 - 110 mmol/L [facility] CO2 26 22 - 32 mmol/L [facility] Anion gap 6 2 - 15 mmol/L [facility] BUN 20 6 - 25 mg/dL [facility] Creatinine 1.01 0.80 - 1.30 mg/dL [facility] Glucose 106 70 - 199 mg/dL [facility] Comment: Interpretive Data Fasting glucose >/= 126 [...] 2022. Calcium 9.0 8.5 - 10.3 mg/dL [facility] Blood 03/28/2024 3:21 AM DESKTOP OPERATOR 03/28/2024 4:26 AM DESKTOP OPERATOR Shane Alfredo MD LAB BLOOD ORDERABLES Fi nal Result Performing Organization Address [facility]/ZIP Co de Phone Number [facility] Department [place] [address] * eGFR (03/27/2024 4:53 AM DESKTOP OPERATOR) eGFR 66 >=60 mL/min/1. 73 m2 Comment: [...] last reviewed 2021. Blood 03/27/2024 4:53 AM DESKTOP OPERATOR 03/27/2024 5:39 AM DESKTOP OPERATOR us Shane Alfredo MD LAB BLOOD ORDERABLES Fi nal Result Performing Organization Address City/State/[facility] Co de Phone Number [facility] Department [place] [address] * (ABNORMAL) CBC without differential (03/27/2024 4:53 AM DESKTOP OPERATOR) Pathologist [facility] WBC 10.2(H) 3.8 - 9.9 K/cumm Hgb 11.4(L) 13.0 - 17.5 g/dL [facility] Hct 34.5(L) 38.9 - 50.3 % [facility] Plt 184 150 - 400 K/cumm [facility] MPV 10.9 9.1 - 12.3 fL [facility] RBC 3.82(L) 4.30 - 5.80 M/cumm [facility] MCV 90.3 81.3 - 96.4 fL [facility] MCH 29.8 27.1 - 33.3 pg [facility] MCHC 33.0 32.3 - 35.7 g/dL [facility] RDW CV 13.9 11.1 - 14.9 % [facility] RDW SD 45.7 35.7 - 48.1 fL [facility] NRBC abs 0.00 0.00 - 0.01 K/cumm [facility] Blood 03/27/2024 4:53 AM DESKTOP OPERATOR 03/27/2024 5:39 AM DESKTOP OPERATOR Apolonia Briseno NP LAB BLOOD ORDERABLES Final Result [facility] Department [place] [address] * (ABNORMAL) Basic metabolic panel (03/27/2024 4:53 AM DESKTOP OPERATOR) Sodium 134(L) 135 - 145 mmol/L Potassium, pl 4.8 3.3 - 4.9 mmol/L [facility] Chloride 100 97 - 110 mmol/L [facility] CO2 26 22 - 32 mmol/L [facility] Anion gap 8 2 - 15 mmol/L [facility] BUN 20 6 - 25 mg/dL [facility] Creatinine 1.10 0.80 - 1.30 mg/dL [facility] Glucose 104 70 - 199 mg/dL [facility] Comment: Interpretive Data Fasting glucose >/= 126 [...] 2022. Calcium 9.3 8.5 - 10.3 mg/dL [facility] Blood 03/27/2024 4:53 AM DESKTOP OPERATOR 03/27/2024 5:39 AM DESKTOP OPERATOR us Shane Alfredo MD LAB BLOOD ORDERABLES Fi nal Result [facility] Department [place] [address] * eGFR (03/26/2024 5:54 AM DESKTOP OPERATOR) eGFR 74 >=60 mL/min/1. 73 m2 Comment: [...] last reviewed 2021. Blood 03/26/2024 5:54 AM DESKTOP OPERATOR 03/26/2024 6:37 AM DESKTOP OPERATOR us Shane Alfredo MD LAB BLOOD ORDERABLES Fi nal Result [facility] [place] [address] * (ABNORMAL) Basic metabolic panel (03/26/2024 5:54 AM DESKTOP OPERATOR) Sodium 134(L) 135 - 145 mmol/L Potassium, pl 4.7 3.3 - 4.9 mmol/L [facility] Chloride 100 97 - 110 mmol/L [facility] CO2 24 22 - 32 mmol/L [facility] Anion gap 10 2 - 15 mmol/L [facility] BUN 17 6 - 25 mg/dL [facility] Creatinine 1.00 0.80 - 1.30 mg/dL [facility] Glucose 102 70 - 199 mg/dL [facility] Comment: Interpretive Data Fasting glucose >/= 126 [...] 2022. Calcium 8.6 8.5 - 10.3 mg/dL [facility] Blood 03/26/2024 5:54 AM DESKTOP OPERATOR 03/26/2024 6:37 AM DESKTOP OPERATOR Shane Alfredo MD LAB BLOOD ORDERABLES Fi nal Result Performing Organization Address [facility]/ZIP Co de Phone Number [facility] Department [place] [employer] [address] * POCT glucose (03/25/2024 5:02 PM DESKTOP OPERATOR) Glucose, POC 117 70 - 199 mg/dL Blood 03/25/2024 5:02 PM DESKTOP OPERATOR 03/25/2024 5:02 PM DESKTOP OPERATOR us Shane Alfredo MD LAB POCT ORDERABLES - D EVICE Final Result Performing Organization Address [facility] Co de Phone Number [facility] [place] [address] * POCT glucose (03/25/2024 7:18 AM DESKTOP OPERATOR) Pathologist [facility] Glucose, POC 102 70 - 199 mg/dL Blood 03/25/2024 7:18 AM DESKTOP OPERATOR 03/25/2024 7:18 AM DESKTOP OPERATOR us Shane Alfredo MD LAB POCT ORDERABLES - D EVICE Final Result Performing Organization Address [facility] Phone Number [facility] [place] [address] * eGFR (03/25/2024 5:24 AM DESKTOP OPERATOR) Pathologist [facility] eGFR 68 >=60 mL/min/1. 73 m2 Comment: [...] last reviewed 2021. Blood 03/25/2024 5:24 AM DESKTOP OPERATOR 03/25/2024 5:56 AM DESKTOP OPERATOR Shane Alfredo MD LAB BLOOD ORDERABLES Fi nal Result [facility] Department [place] [address] * (ABNORMAL) Basic metabolic panel (03/25/2024 5:24 AM DESKTOP OPERATOR) Sodium 132(L) 135 - 145 mmol/L Potassium, pl 4.7 3.3 - 4.9 mmol/L [facility] Chloride 99 97 - 110 mmol/L [facility] CO2 27 22 - 32 mmol/L [facility] Anion gap 6 2 - 15 mmol/L [facility] BUN 17 6 - 25 mg/dL [facility] Creatinine 1.07 0.80 - 1.30 mg/dL [facility] Glucose 114 70 - 199 mg/dL [facility] Comment: Interpretive Data Fasting glucose >/= 126 [...] 2022. Calcium 9.0 8.5 - 10.3 mg/dL [facility] Blood 03/25/2024 5:24 AM DESKTOP OPERATOR 03/25/2024 5:56 AM DESKTOP OPERATOR Shane Alfredo MD LAB BLOOD ORDERABLES Fi nal Result Performing Organization Address City/[facility]/ZIP Co de Phone Number [facility] Department [place] [employer] [place] [address] * eGFR (03/24/2024 3:36 AM DESKTOP OPERATOR) eGFR 65 >=60 mL/min/1. 73 m2 Comment: [...] last reviewed 2021. Blood 03/24/2024 3:36 AM DESKTOP OPERATOR 03/24/2024 4:34 AM DESKTOP OPERATOR us Shane Alfredo MD LAB BLOOD ORDERABLES Fi nal Result Performing Organization Address [facility]/ZIP Co de Phone Number [facility] Department [place] [address] * (ABNORMAL) Differential, auto (03/24/2024 3:36 AM DESKTOP OPERATOR) Neutrophil abs 6.5 1.5 - 6.5 K/cumm Imm gran abs 0.0 0.0 - 0.1 K/cumm [facility] Lymphocyte abs 1.4 0.8 - 3.3 K/cumm [facility] Monocyte abs 1.1(H) 0.2 - 0.8 K/cumm [facility] Eosinophil abs 0.5 0.0 - 0.5 K/cumm [facility] Basophil abs 0.0 0.0 - 0.1 K/cumm [facility] Neutrophil pct 68.2 % [facility] Comment: Interpretive Data Percent cell count reference ranges are not reported, since discordance with absolute values may lead to misinterpretation of CBC data. Current Interpretive Data was last revised on 2017. Imm gran pct 0.3 % [facility] Comment: Interpretive Data Percent cell count reference ranges are not reported, since discordance with absolute values may lead to misinterpretation of CBC data. Current Interpretive Data was last revised on 2017. Lymphocyte pct 14.7 % [facility] Comment: Interpretive Data Percent cell count reference ranges are not reported, since discordance with absolute values may lead to misinterpretation of CBC data. Current Interpretive Data was last revised on 2017. Monocyte pct 11.4 % [facility] Comment: Interpretive Data Percent cell count reference ranges are not reported, since discordance with absolute values may lead to misinterpretation of CBC data. Current Interpretive Data was last revised on 2017. Eosinophil pct 5.1 % [facility] Comment: Interpretive Data Percent cell count reference ranges are not reported, since discordance with absolute values may lead to misinterpretation of CBC data. Current Interpretive Data was last revised on 2017. Basophil pct 0.3 % [facility] Comment: Interpretive Data Percent cell count reference ranges are not reported, since discordance with absolute values may lead to misinterpretation of CBC data. Current Interpretive Data was last revised on 2017. Blood 03/24/2024 3:36 AM DESKTOP OPERATOR 03/24/2024 4:38 AM DESKTOP OPERATOR Rahel Dubon TRAUMA COORDINATOR LAB BLOOD ORDERABLES F inal Result Performing Organization Address [facility] Co de Phone Number [facility] [place] [employer] [address] * (ABNORMAL) CBC with auto differential (03/24/2024 3:36 AM DESKTOP OPERATOR) WBC 10.0(H) 3.8 - 9.9 K/cumm Hgb 10.5(L) 13.0 - 17.5 g/dL [facility] Hct 32.7(L) 38.9 - 50.3 % [facility] Plt 145(L) 150 - 400 K/cumm [facility] MPV 11.4 9.1 - 12.3 fL [facility] RBC 3.63(L) 4.30 - 5.80 M/cumm [facility] MCV 90.1 81.3 - 96.4 fL [facility] MCH 28.9 27.1 - 33.3 pg [facility] MCHC 32.1(L) 32.3 - 35.7 g/dL [facility] RDW CV 13.8 11.1 - 14.9 % [facility] RDW SD 45.2 35.7 - 48.1 fL [facility] NRBC abs 0.00 0.00 - 0.01 K/cumm [facility] Blood 03/24/2024 3:36 AM DESKTOP OPERATOR 03/24/2024 4:38 AM DESKTOP OPERATOR Rahel Dubon TRAUMA COORDINATOR LAB BLOOD ORDERABLES F inal Result Performing Organization Address City/[facility]/ZIP Co de Phone Number [facility] [place] [employer] [address] * CBC without differential (03/24/2024 3:36 AM DESKTOP OPERATOR) WBC See Comment 3.8 - 9.9 Comment:Credited, duplicate test. Hgb See Comment 13.0 - 17.5 [facility] Comment:Credited, duplicate test. Hct See Comment 38.9 - 50.3 [facility] Comment:Credited, duplicate test. Plt See Comment 150 - 400 [facility] Comment:Credited, duplicate test. MPV See Comment 9.1 - 12.3 [facility] Comment:Credited, duplicate test. RBC See Comment 4.30 - 5.80 [facility] Comment:Credited, duplicate test. MCV See Comment 81.3 - 96.4 [facility] Comment:Credited, duplicate test. MCH See Comment 27.1 - 33.3 [facility] Comment:Credited, duplicate test. MCHC See Comment 32.3 - 35.7 [facility] Comment:Credited, duplicate test. RDW CV See Comment 11.1 - 14.9 [facility] Comment:Credited, duplicate test. RDW SD See Comment 35.7 - 48.1 [facility] Comment:Credited, duplicate test. NRBC abs See Comment 0.00 - 0.01 K/cumm [facility] Comment:Credited, duplicate test. Blood 03/24/2024 3:36 AM DESKTOP OPERATOR 03/24/2024 4:34 AM DESKTOP OPERATOR Apolonia Briseno TRAUMA COORDINATOR LAB BLOOD ORDERABLES Edite d Result - Final [facility] Department [place] [address] * Basic metabolic panel (03/24/2024 3:36 AM DESKTOP OPERATOR) Sodium 135 135 - 145 mmol/L Potassium, pl 4.9 3.3 - 4.9 mmol/L [facility] [facility] Chloride 101 97 - 110 mmol/L [facility] CO2 26 22 - 32 mmol/L [facility] Anion gap 8 2 - 15 mmol/L [facility] BUN 19 6 - 25 mg/dL [facility] Creatinine 1.11 0.80 - 1.30 mg/dL [facility] Glucose 103 70 - 199 mg/dL [facility] Comment: Interpretive Data Fasting glucose >/= 126 [...] 2022. Calcium 8.9 8.5 - 10.3 mg/dL [facility] Blood 03/24/2024 3:36 AM DESKTOP OPERATOR 03/24/2024 4:34 AM DESKTOP OPERATOR us Shane Alfredo MD LAB BLOOD ORDERABLES Fi nal Result [facility] Department [place] [address] * eGFR (03/23/2024 5:03 AM DESKTOP OPERATOR) eGFR 62 >=60 mL/min/1. 73 m2 Comment: [...] last reviewed 2021. Blood 03/23/2024 5:03 AM DESKTOP OPERATOR 03/23/2024 6:06 AM DESKTOP OPERATOR Shane Alfredo MD LAB BLOOD ORDERABLES Fi nal Result Performing Organization Address City/[facility]/ZIP Co de Phone Number [facility] Department [place] [address] * (ABNORMAL) Basic metabolic panel (03/23/2024 5:03 AM DESKTOP OPERATOR) Sodium 134(L) 135 - 145 mmol/L Potassium, pl 4.9 3.3 - 4.9 mmol/L [facility] Chloride 100 97 - 110 mmol/L [facility] CO2 25 22 - 32 mmol/L [facility] Anion gap 9 2 - 15 mmol/L [facility] BUN 19 6 - 25 mg/dL [facility] Creatinine 1.16 0.80 - 1.30 mg/dL [facility] Glucose 101 70 - 199 mg/dL [facility] Comment: Interpretive Data Fasting glucose >/= 126 [...] 2022. Calcium 8.9 8.5 - 10.3 mg/dL [facility] Blood 03/23/2024 5:03 AM DESKTOP OPERATOR 03/23/2024 6:06 AM DESKTOP OPERATOR Shane Alfredo MD LAB BLOOD ORDERABLES Fi nal Result Performing Organization Address City/[facility]/ZIP Co de Phone Number [facility] Department [place] [address] * (ABNORMAL) CBC without differential (03/22/2024 5:00 AM DESKTOP OPERATOR) [facility] WBC 8.6 3.8 - 9.9 K/cumm Hgb 10.9(L) 13.0 - 17.5 g/dL [facility] Hct 34.1(L) 38.9 - 50.3 % [facility] Plt 132(L) 150 - 400 K/cumm [facility] MPV 11.3 9.1 - 12.3 fL [facility] RBC 3.71(L) 4.30 - 5.80 M/cumm [facility] MCV 91.9 81.3 - 96.4 fL [facility] MCH 29.4 27.1 - 33.3 pg [facility] MCHC 32.0(L) 32.3 - 35.7 g/dL [facility] RDW CV 13.6 11.1 - 14.9 % [facility] RDW SD 45.7 35.7 - 48.1 fL [facility] NRBC abs 0.00 0.00 - 0.01 K/cumm [facility] Blood 03/22/2024 5:00 AM DESKTOP OPERATOR 03/22/2024 5:57 AM DESKTOP OPERATOR Apolonia Briseno NP LAB BLOOD ORDERABLES Final Result Performing Organization Address City/[facility] Co de Phone Number [facility] Department [place] [address] * Creatine kinase (CK), total (03/22/2024 5:00 AM DESKTOP OPERATOR) [facility] CK 68 40 - 300 Units/L Blood 03/22/2024 5:00 AM DESKTOP OPERATOR 03/22/2024 7:36 AM DESKTOP OPERATOR Apolonia Briseno NP LAB BLOOD ORDERABLES Final Result Performing Organization Address [facility] Co de Phone Number [facility] Department [place] [address] * Hepatic function panel (03/22/2024 5:00 AM DESKTOP OPERATOR) Bilirubin, total 0.5 0.1 - 1.2 mg/dL Bilirubin, direct <0.2 0.1 - 0.3 mg/dL [facility] Protein, pl 6.7 6.5 - 8.5 g/dL [facility] Albumin 3.5 3.5 - 5.0 g/dL [facility] Alk phos 75 40 - 130 Units/L [facility] ALT 33 7 - 55 Units/L [facility] AST 33 10 - 50 Units/L [facility] Blood 03/22/2024 5:00 AM DESKTOP OPERATOR 03/22/2024 7:36 AM DESKTOP OPERATOR Apolonia Briseno TRAUMA COORDINATOR LAB BLOOD ORDERABLES Final Result [facility] Department [place] [address] * XR Chest 1 View (03/21/2024 5:03 AM DESKTOP OPERATOR) Anatomical Region Laterality Modality Body, Chest N/A Digital Radiogra phy 03/21/2024 8:44 AM DESKTOP OPERATOR Impressions 03/21/2024 12:33 PM DESKTOP OPERATOR The current study is compared with the [...] it. Electronically signed by: Brannon Alcazar M.D. Narrative 03/21/2024 12:33 PM DESKTOP OPERATOR EXAMINATION: 1 view chest radiograph Procedure Note [...] Final Result * eGFR (03/21/2024 3:34 AM DESKTOP OPERATOR) eGFR 61 >=60 mL/min/1. 73 m2 Comment: [...] last reviewed 2021. Blood 03/21/2024 3:34 AM DESKTOP OPERATOR 03/21/2024 6:33 AM DESKTOP OPERATOR Shane Alfredo MD LAB BLOOD ORDERABLES Fi nal Result [facility] Department [place] [address] * Blood culture Blood (03/21/2024 3:34 AM DESKTOP OPERATOR) Report Final Report: No growth Blood 03/21/2024 3:34 AM DESKTOP OPERATOR 03/21/2024 7:11 AM DESKTOP OPERATOR Narrative [facility] - 03/25/2024 12:00 PM DESKTOP OPERATOR Collection->Peripheral 1. ?Blood cultures are incubated for [...] organism identification may be performed using the [employer] Gram-Positive Blood Culture Assay. This assay detects microbial DNA in positive blood culture broth via hybridization of target DNA to capture oligonucleotides on a microarray. This assay has been cleared by the [place] Food and Drug Administration and its performance characteristics have been verified by the [facility] Microbiology Laboratory. 5. ?For questions about this culture, contact the Microbiology Laboratory at [phone]. Interpretive data was last revised on 2019. Shane Alfredo MD LAB MICROBIOLOGY - GENE RAL ORDERABLES Final Result Performing Organization Address [facility] Co de Phone Number [facility] Department [place] [address] * Blood culture Blood (03/21/2024 3:34 AM DESKTOP OPERATOR) Report Final Report: No growth Blood 03/21/2024 3:34 AM DESKTOP OPERATOR 03/21/2024 7:10 AM DESKTOP OPERATOR Narrative [facility] - 03/25/2024 12:00 PM DESKTOP OPERATOR Collection->Peripheral 1. ?Blood cultures are incubated for [...] organism identification may be performed using the [employer] Gram-Positive Blood Culture Assay. This assay detects microbial DNA in positive blood culture broth via hybridization of target DNA to capture oligonucleotides on a microarray. This assay has been cleared by the [place] Food and Drug Administration and its performance characteristics have been verified by the [facility]biology Laboratory. 5. ?For questions about this culture, contact the Microbiology Laboratory at [phone]. Interpretive data was last revised on 2019. us Shane Alfredo MD LAB MICROBIOLOGY - GENE RAL ORDERABLES Final Result Performing Organization Address City/[facility]/ZIP Co de Phone Number [facility] Department [place] [address] * (ABNORMAL) CBC without differential (03/21/2024 3:34 AM DESKTOP OPERATOR) [facility] WBC 8.3 3.8 - 9.9 K/cumm Hgb 11.5(L) 13.0 - 17.5 g/dL [facility] Hct 35.8(L) 38.9 - 50.3 % [facility] Plt 147(L) 150 - 400 K/cumm [facility] MPV 11.2 9.1 - 12.3 fL [facility] RBC 3.92(L) 4.30 - 5.80 M/cumm [facility] MCV 91.3 81.3 - 96.4 fL [facility] MCH 29.3 27.1 - 33.3 pg [facility] MCHC 32.1(L) 32.3 - 35.7 g/dL [facility] RDW CV 13.7 11.1 - 14.9 % [facility] RDW SD 45.8 35.7 - 48.1 fL [facility] NRBC abs 0.00 0.00 - 0.01 K/cumm [facility] Blood 03/21/2024 3:34 AM DESKTOP OPERATOR 03/21/2024 6:33 AM DESKTOP OPERATOR us Shane Alfredo MD LAB BLOOD ORDERABLES Fi nal Result Performing Organization Address [facility] Co de Phone Number [facility] Department [place] [address] * (ABNORMAL) Basic metabolic panel (03/21/2024 3:34 AM DESKTOP OPERATOR) [facility] Sodium 134(L) 135 - 145 mmol/L Potassium, pl 4.7 3.3 - 4.9 mmol/L [facility] Chloride 101 97 - 110 mmol/L [facility] CO2 24 22 - 32 mmol/L [facility] Anion gap 9 2 - 15 mmol/L [facility] BUN 20 6 - 25 mg/dL [facility] Creatinine 1.17 0.80 - 1.30 mg/dL [facility] Glucose 85 70 - 199 mg/dL [facility] Comment: Interpretive Data Fasting glucose >/= 126 [...] 2022. Calcium 9.1 8.5 - 10.3 mg/dL [facility] Blood 03/21/2024 3:34 AM DESKTOP OPERATOR 03/21/2024 6:33 AM DESKTOP OPERATOR us Shane Alfredo MD LAB BLOOD ORDERABLES Fi nal Result [facility] Department [place] [address] * TEMPOARY PACING INSERT/REPLACE LEAD (03/20/2024 2:40 PM DESKTOP OPERATOR) Anatomical Region Laterality Modality X-Ray Angiograph y Narrative 03/20/2024 2:46 PM DESKTOP OPERATOR Patient Name: Kelsie Vo Date of : 1940 Primary Care Provider: Robert Whitlock MD Primary Cashier Clerk: MD JACOB ThomasonA Primary Cardiac Supervisor Wet End: Shane Alfredo MD Procedure Date: 03/20/2024 Attending Supervisor Wet End: Franklyn Worthington MD B[facility] Electrophysiology Fellow: Arun Grier MD Name of [...] position was confirmed in the [place] and [place] views. ??Adequate sensing and pacing parameters were [...] programming: - RV Lead (Model #2088TC/52, Serial #[id number]): Sensing 10.6 mV, Pacing threshold 1.0 V at 0.5 ms, Imp 810 Ohms - Device: Clement Assurity MRI (Model #1272, Serial #[id number]), programmed VVI 50 Explanted device: - RA Lead (Model #2088TC/65, Serial #[id number]) - Device: Clement Assurity MRI (Model #1272, Serial #[id number]) Conclusions: 1. Successful placement of a temporary [...] repeat blood cultures and permanent device implant MD JACOB HallA Roll Handlersplicer machine operator [facility] [employer] Division of Cardiology, Section of Electrophysiology 03/20/2024 1:56 PM us Franklyn Worthington MD CV ELECTROPHYSIOLOGY PROC S Final Result * (ABNORMAL) eGFR (03/20/2024 3:17 AM DESKTOP OPERATOR) [facility] eGFR 59(L) >=60 mL/min/1. 73 m2 Comment: [...] last reviewed 2021. Blood 03/20/2024 3:17 AM DESKTOP OPERATOR 03/20/2024 4:06 AM DESKTOP OPERATOR Shane Alfredo MD LAB BLOOD ORDERABLES Fi nal Result [facility] Department [place] [address] * Blood culture Blood (03/20/2024 3:17 AM DESKTOP OPERATOR) Report Final Report: No growth Blood 03/20/2024 3:17 AM DESKTOP OPERATOR 03/20/2024 4:08 AM DESKTOP OPERATOR Narrative [facility] - 03/24/2024 7:00 AM DESKTOP OPERATOR Collection->Peripheral 1. ?Blood cultures are incubated for [...] performance characteristics have been verified by the [facility] Microbiology Laboratory. 5. ?For questions about this culture, contact the Microbiology Laboratory at [phone]. Interpretive data was last revised on 2019. us Shane Alfredo MD LAB MICROBIOLOGY - GENE RAL ORDERABLES Final Result [facility] Department [place] [address] * Blood culture Blood (03/20/2024 3:17 AM DESKTOP OPERATOR) Report Final Report: No growth Blood 03/20/2024 3:17 AM DESKTOP OPERATOR 03/20/2024 4:08 AM DESKTOP OPERATOR Narrative [facility] - 03/24/2024 7:00 AM DESKTOP OPERATOR Collection->Peripheral 1. ?Blood cultures are incubated for [...] performance characteristics have been verified by the [facility]biology Laboratory. 5. ?For questions about this culture, contact the Microbiology Laboratory at [phone]. Interpretive data was last revised on 2019. Shane Alfredo MD LAB MICROBIOLOGY - GENE RAL ORDERABLES Final Result [facility] Department [place] [address] * (ABNORMAL) CBC without differential (03/20/2024 3:17 AM DESKTOP OPERATOR) [facility] WBC 7.2 3.8 - 9.9 K/cumm Hgb 11.2(L) 13.0 - 17.5 g/dL [facility] Hct 34.9(L) 38.9 - 50.3 % [facility] Plt 152 150 - 400 K/cumm [facility] MPV 11.0 9.1 - 12.3 fL [facility] RBC 3.86(L) 4.30 - 5.80 M/cumm [facility] MCV 90.4 81.3 - 96.4 fL [facility] MCH 29.0 27.1 - 33.3 pg [facility] MCHC 32.1(L) 32.3 - 35.7 g/dL [facility] RDW CV 13.5 11.1 - 14.9 % [facility] RDW SD 44.0 35.7 - 48.1 fL [facility] NRBC abs 0.00 0.00 - 0.01 K/cumm [facility] Blood 03/20/2024 3:17 AM DESKTOP OPERATOR 03/20/2024 4:06 AM DESKTOP OPERATOR Shane Alfredo MD LAB BLOOD ORDERABLES Fi nal Result Performing Organization Address City/[facility]/ZIP Co de Phone Number [facility] Department [place] [address] * Creatine kinase (CK), total (03/20/2024 3:17 AM DESKTOP OPERATOR) Pathologist [facility] CK 54 40 - 300 Units/L Blood 03/20/2024 3:17 AM DESKTOP OPERATOR 03/20/2024 4:06 AM DESKTOP OPERATOR us Armando Dodson TRAUMA COORDINATOR LAB BLOOD ORDERABLES Final Result [facility] Department [place] [address] * (ABNORMAL) Basic metabolic panel (03/20/2024 3:17 AM DESKTOP OPERATOR) Pathologist [facility] Sodium 138 135 - 145 mmol/L Potassium, pl 5.4(H) 3.3 - 4.9 mmol/L [facility] Chloride 101 97 - 110 mmol/L [facility] CO2 26 22 - 32 mmol/L [facility] Anion gap 11 2 - 15 mmol/L [facility] BUN 22 6 - 25 mg/dL [facility] Creatinine 1.21 0.80 - 1.30 mg/dL [facility] Glucose 96 70 - 199 mg/dL [facility] Comment: Interpretive Data Fasting glucose >/= 126 [...] 2022. Calcium 9.1 8.5 - 10.3 mg/dL [facility] Blood 03/20/2024 3:17 AM DESKTOP OPERATOR 03/20/2024 4:06 AM DESKTOP OPERATOR us Shane Alfredo MD LAB BLOOD ORDERABLES Fi nal Result Performing Organization Address [facility]/ZIP Co de Phone Number [facility] Department of Laboratories [place], [place] [id number] * (ABNORMAL) eGFR (03/19/2024 3:35 AM DESKTOP OPERATOR) [facility] eGFR 59(L) >=60 mL/min/1. 73 m2 Comment: [...] last reviewed 2021. Blood 03/19/2024 3:35 AM DESKTOP OPERATOR 03/19/2024 5:17 AM DESKTOP OPERATOR us Shane Alfredo MD LAB BLOOD ORDERABLES Fi nal Result Performing Organization Address [facility]/ZIP Co de Phone Number [facility] Department [place] [address] * Blood culture Blood (03/19/2024 3:35 AM DESKTOP OPERATOR) Report Final Report: No growth Blood 03/19/2024 3:35 AM DESKTOP OPERATOR 03/19/2024 5:26 AM DESKTOP OPERATOR Narrative [facility] - 03/23/2024 7:00 AM DESKTOP OPERATOR Collection->Peripheral 1. ?Blood cultures are incubated for [...] organism identification may be performed using the [employer] Gram-Positive Blood Culture Assay. This assay detects microbial DNA in positive blood culture broth via hybridization of target DNA to capture oligonucleotides on a microarray. This assay has been cleared by the [place] Food and Drug Administration and its performance characteristics have been verified by the [facility]biology Laboratory. 5. ?For questions about this culture, contact the Microbiology Laboratory at [phone]. Interpretive data was last revised on 2019. us Shane Alfredo MD LAB MICROBIOLOGY - GENE RAL ORDERABLES Final Result [facility] Department [place] [address] * Blood culture Blood (03/19/2024 3:35 AM DESKTOP OPERATOR) Report Final Report: No growth Blood 03/19/2024 3:35 AM DESKTOP OPERATOR 03/19/2024 5:26 AM DESKTOP OPERATOR Narrative [facility] - 03/23/2024 7:00 AM DESKTOP OPERATOR Collection->Peripheral 1. ?Blood cultures are incubated for [...] organism identification may be performed using the [employer] Gram-Positive Blood Culture Assay. This assay detects microbial DNA in positive blood culture broth via hybridization of target DNA to capture oligonucleotides on a microarray. This assay has been cleared by the [place] Food and Drug Administration and its performance characteristics have been verified by the [facility]biology Laboratory. 5. ?For questions about this culture, contact the Microbiology Laboratory at [phone]. Interpretive data was last revised on 2019. us Shane Alfredo MD LAB MICROBIOLOGY - GENE [facility] ORDERABLES Final Result [facility] Department [place] [address] * (ABNORMAL) CBC without differential (03/19/2024 3:35 AM DESKTOP OPERATOR) WBC 6.7 3.8 - 9.9 K/cumm Hgb 11.9(L) 13.0 - 17.5 g/dL [facility] Hct 36.4(L) 38.9 - 50.3 % [facility] Plt 151 150 - 400 K/cumm [facility] MPV 11.1 9.1 - 12.3 fL [facility] RBC 4.05(L) 4.30 - 5.80 M/cumm [facility] MCV 89.9 81.3 - 96.4 fL [facility] MCH 29.4 27.1 - 33.3 pg [facility] MCHC 32.7 32.3 - 35.7 g/dL [facility] RDW CV 13.4 11.1 - 14.9 % [facility] RDW SD 44.5 35.7 - 48.1 fL [facility] NRBC abs 0.00 0.00 - 0.01 K/cumm [facility] Blood 03/19/2024 3:35 AM DESKTOP OPERATOR 03/19/2024 5:18 AM DESKTOP OPERATOR us Shane Alfredo MD LAB BLOOD ORDERABLES Fi nal Result [facility] Department [place] [address] * Basic metabolic panel (03/19/2024 3:35 AM DESKTOP OPERATOR) Pathologist [facility] Sodium 136 135 - 145 mmol/L Potassium, pl 4.7 3.3 - 4.9 mmol/L [facility] Chloride 102 97 - 110 mmol/L [facility] CO2 24 22 - 32 mmol/L [facility] Anion gap 10 2 - 15 mmol/L [facility] BUN 24 6 - 25 mg/dL [facility] Creatinine 1.21 0.80 - 1.30 mg/dL [facility] Glucose 97 70 - 199 mg/dL [facility] Comment: Interpretive Data Fasting glucose >/= 126 [...] 2022. Calcium 9.3 8.5 - 10.3 mg/dL [facility] Blood 03/19/2024 3:35 AM DESKTOP OPERATOR 03/19/2024 5:17 AM DESKTOP OPERATOR us Shane Alfredo MD LAB BLOOD ORDERABLES Fi nal Result Performing Organization Address [facility] de Phone Number [facility] [place] [address] * Potassium, whole blood (03/18/2024 1:36 PM CDT) Potassium, bld 4.8 3.3 - 4.9 mmol/L Blood 03/18/2024 1:36 PM CDT 03/18/2024 1:50 PM CDT us Armando Dodson TRAUMA COORDINATOR LAB BLOOD ORDERABLES Final Result Performing Organization Address [facility] de Phone Number [facility] [place] [address] * (ABNORMAL) eGFR (03/18/2024 1:36 PM CDT) [facility] eGFR 57(L) >=60 mL/min/1. 73 m2 [...] CDT 03/18/2024 1:59 PM CDT Armando Dodson TRAUMA COORDINATOR LAB BLOOD ORDERABLES Final Result [facility] Department [place] [address] * (ABNORMAL) Basic metabolic panel (03/18/2024 1:36 PM CDT) Sodium 134(L) 135 - 145 mmol/L Potassium, pl 4.9 3.3 - 4.9 mmol/L [facility] Chloride 100 97 - 110 mmol/L [facility] CO2 23 22 - 32 mmol/L [facility] Anion gap 11 2 - 15 mmol/L [facility] BUN 21 6 - 25 mg/dL [facility] Creatinine 1.24 0.80 - 1.30 mg/dL [facility] Glucose 135 70 - 199 mg/dL [facility] Comment: Interpretive Data Fasting glucose >/= 126 [...] 2022. Calcium 9.1 8.5 - 10.3 mg/dL [facility] Blood 03/18/2024 1:36 PM CDT 03/18/2024 1:59 PM CDT us Armando Dodson TRAUMA COORDINATOR LAB BLOOD ORDERABLES Final Result Performing Organization Address City/[facility] Co de Phone Number [facility] [place] [address] * (ABNORMAL) eGFR (03/18/2024 3:55 AM CDT) eGFR 57(L) >=60 mL/min/1. 73 m2 Comment: [...] ORDERABLES Fi nal Result Performing Organization Address City/[facility]/ZIP Co de Phone Number [facility] [place] [address] * Blood culture Blood (03/18/2024 3:55 AM CDT) Report Final Report: No growth Blood 03/18/2024 3:55 AM CDT 03/18/2024 6:53 AM CDT Narrative [facility] - 03/22/2024 7:00 AM DESKTOP OPERATOR Collection->Peripheral 1. ?Blood cultures are incubated for [...] organism identification may be performed using the [employer] Gram-Positive Blood Culture Assay. This assay detects microbial DNA in positive blood culture broth via hybridization of target DNA to capture oligonucleotides on a microarray. This assay has been cleared by the [place] Food and Drug Administration and its performance characteristics have been verified by the [facility] Microbiology Laboratory. 5. ?For questions about this culture, contact the Microbiology Laboratory at [phone]. Interpretive data was last revised on 2019. us Shane Alfredo MD LAB MICROBIOLOGY - GENE RAL ORDERABLES Final Result [facility] Department [place] [address] * Blood culture Blood (03/18/2024 3:55 AM CDT) Report Final Report: No growth Blood 03/18/2024 3:55 AM CDT 03/18/2024 6:53 AM CDT Narrative [facility] - 03/22/2024 7:00 AM DESKTOP OPERATOR Collection->Peripheral 1. ?Blood cultures are incubated for [...] organism identification may be performed using the [employer] Gram-Positive Blood Culture Assay. This assay detects microbial DNA in positive blood culture broth via hybridization of target DNA to capture oligonucleotides on a microarray. This assay has been cleared by the [place] Food and Drug Administration and its performance characteristics have been verified by the [facility]biology Laboratory. 5. ?For questions about this culture, contact the Microbiology Laboratory at [phone]. Interpretive data was last revised on 2019. us Shane Alfredo MD LAB MICROBIOLOGY - GENE RAL ORDERABLES Final Result [facility] [place] [address] * (ABNORMAL) CBC without differential (03/18/2024 3:55 AM CDT) WBC 6.4 3.8 - 9.9 K/cumm Hgb 12.2(L) 13.0 - 17.5 g/dL [facility] Hct 37.4(L) 38.9 - 50.3 % [facility] Plt 141(L) 150 - 400 K/cumm [facility] MPV 11.2 9.1 - 12.3 fL [facility] RBC 4.15(L) 4.30 - 5.80 M/cumm [facility] MCV 90.1 81.3 - 96.4 fL [facility] MCH 29.4 27.1 - 33.3 pg [facility] MCHC 32.6 32.3 - 35.7 g/dL [facility] RDW CV 13.4 11.1 - 14.9 % [facility] RDW SD 44.3 35.7 - 48.1 fL [facility] NRBC abs 0.00 0.00 - 0.01 K/cumm [facility] [facility] Blood 03/18/2024 3:55 AM CDT 03/18/2024 6:46 AM CDT Shane Alfredo MD LAB BLOOD ORDERABLES nal Result [facility] Department [place] [address] * (ABNORMAL) Basic metabolic panel (03/18/2024 3:55 AM CDT) Sodium 135 135 - 145 mmol/L Potassium, pl 5.3(H) 3.3 - 4.9 mmol/L [facility] Chloride 101 97 - 110 mmol/L [facility] CO2 27 22 - 32 mmol/L [facility] Anion gap 7 2 - 15 mmol/L [facility] BUN 19 6 - 25 mg/dL [facility] Creatinine 1.25 0.80 - 1.30 mg/dL [facility] Glucose 92 70 - 199 mg/dL [facility] Comment: Interpretive Data Fasting glucose >/= 126 [...] 2022. Calcium 9.3 8.5 - 10.3 mg/dL [facility] Blood 03/18/2024 3:55 AM CDT 03/18/2024 6:46 AM CDT us Shane Alfredo MD LAB BLOOD ORDERABLES Fi nal Result [facility] Department [place] [address] * TRANSESOPHAGEAL ECHO (JOSEPH) W DOPPLER/CF WO CONTRAST (03/17/2024 2:01 PM CDT) Anatomical Region Laterality Modality Echocardiography 03/17/2024 11:1 5 AM CDT Narrative 03/17/2024 4:22 PM CDT Patient name: Kelsie Vo Date of test: 03/17/2024 Date of : 1940 (M) [facility] #: 0 ?Location: [facility] [place] Cardiac Diagnostic Lab Interpreted by: John Navarro MD Rubber Tubing Backer: Cindy Lucio MD RN: Reason for Test: [...] 2=Hypo 3=Akinetic 4=Dyskin. 5=Aneurysm 0=Not visualized) [place]-Gastric:=1 S=1 I=1 P=1 L=1 A=1 [place]-Gastric:BP=1 BA=1 MP=1 MA=1 AP=1 AA=1 Chamber Dimensions: RA: Normal LA: Normal RV: Normal LV: Normal LV function: Mild global left ventricular dysfunction. RV function: Normal Pericardium: No pericardial effusion seen Diastolic function: not assessed Atrial Septum: Normal Wall Thickness: RV: Normal LV: Normal Sedation/Tolerance: ??Sedation: MAC anesthesia ??[employer] Admin: ?Propofol 172mg ??Tolerance: Patient tolerated procedure [...] - 16:22:47 by John Navarro MD ?? Closing Agent: Cindy Lucio By signing this report, the attending surgical brace maker certifies that he or she has personally supervised and interpreted the echocardiogram and has reviewed and or edited and agrees with the written comments contained within the report. Procedure Note John Coughlin MD - 03/17/2024 Patient name: Kelsie Vo Date of test: 03/17/2024 Date of : 1940 (M) [facility] #: 0 Location: [facility] [place] Cardiac Diagnostic Lab Interpreted by: John Navarro MD Rubber Tubing Backer: Cindy Lucio MD RN: Reason for Test: [...] 2=Hypo 3=Akinetic 4=Dyskin. 5=Aneurysm 0=Not visualized) [place]-Gastric:=1 S=1 I=1 P=1 L=1 A=1 [place]-Gastric:BP=1 BA=1 MP=1 MA=1 AP=1 AA=1 Chamber Dimensions: [...] 03/17/2024 - 16:22:47 by John Navarro MD Closing Agent: Cindy Lucio By signing this report, the attending surgical brace maker certifies that he or she has personally supervised and interpreted the echocardiogram and has reviewed and or edited and agrees with the written comments contained within the report. us Albin Stockton NP CV ECHO PROCEDURES Fi nal Result * eGFR (03/17/2024 3:48 AM CDT) eGFR 63 >=60 mL/min/1. 73 m2 Comment: [...] 3:48 AM CDT 03/17/2024 5:31 AM CDT Shane Alfredo MD LAB BLOOD ORDERABLES Fi nal Result Performing Organization Address City/State/[facility] Co nd Phone Number [facility] Department [place] [address] * Blood culture Blood (03/17/2024 3:48 AM CDT) Report Final Report: No growth Blood 03/17/2024 3:48 AM CDT 03/17/2024 6:06 AM CDT Narrative [facility] - 03/21/2024 7:00 AM DESKTOP OPERATOR Collection->Peripheral 1. ?Blood cultures are incubated for [...] organism identification may be performed using the [employer] Gram-Positive Blood Culture Assay. This assay detects microbial DNA in positive blood culture broth via hybridization of target DNA to capture oligonucleotides on a microarray. This assay has been cleared by the [place] Food and Drug Administration and its performance characteristics have been verified by the [facility] Microbiology Laboratory. 5. ?For questions about this culture, contact the Microbiology Laboratory at [phone]. Interpretive data was last revised on 2019. us Shane Alfredo MD LAB MICROBIOLOGY - GENE RAL ORDERABLES Final Result [facility] Department [place] [address] * Blood culture Blood (03/17/2024 3:48 AM CDT) Report Final Report: No growth Blood 03/17/2024 3:48 AM CDT 03/17/2024 6:06 AM CDT Narrative [facility] - 03/21/2024 7:00 AM DESKTOP OPERATOR Collection->Peripheral 1. ?Blood cultures are incubated for [...] organism identification may be performed using the [employer] Gram-Positive Blood Culture Assay. This assay detects microbial DNA in positive blood culture broth via hybridization of target DNA to capture oligonucleotides on a microarray. This assay has been cleared by the [place] Food and Drug Administration and its performance characteristics have been verified by the [facility] Microbiology Laboratory. 5. ?For questions about this culture, contact the Microbiology Laboratory at [phone]. Interpretive data was last revised on 2019. Shane Alfredo MD LAB MICROBIOLOGY - GENE [facility] ORDERABLES Final Result [facility] Department [place] [address] * (ABNORMAL) CBC without differential (03/17/2024 3:48 AM CDT) WBC 6.0 3.8 - 9.9 K/cumm Hgb 13.2 13.0 - 17.5 g/dL [facility] Hct 40.8 38.9 - 50.3 % [facility] Plt 124(L) 150 - 400 K/cumm [facility] MPV 11.4 9.1 - 12.3 fL [facility] RBC 4.47 4.30 - 5.80 M/cumm [facility] MCV 91.3 81.3 - 96.4 fL [facility] MCH 29.5 27.1 - 33.3 pg [facility] MCHC 32.4 32.3 - 35.7 g/dL [facility] RDW CV 13.3 11.1 - 14.9 % [facility] RDW SD 44.5 35.7 - 48.1 fL [facility] NRBC abs 0.00 0.00 - 0.01 K/cumm [facility] Blood 03/17/2024 3:48 AM CDT 03/17/2024 5:31 AM CDT us Shane Alfredo MD LAB BLOOD ORDERABLES Fi nal Result Performing Organization Address [facility]/ZIP Co de Phone Number [facility] Department [place] [address] * (ABNORMAL) Basic metabolic panel (03/17/2024 3:48 AM CDT) Sodium 134(L) 135 - 145 mmol/L Potassium, pl 5.0(H) 3.3 - 4.9 mmol/L [facility] Chloride 100 97 - 110 mmol/L [facility] CO2 26 22 - 32 mmol/L [facility] Anion gap 8 2 - 15 mmol/L [facility] BUN 19 6 - 25 mg/dL [facility] Creatinine 1.14 0.80 - 1.30 mg/dL [facility] Glucose 91 70 - 199 mg/dL [facility] Comment: Interpretive Data Fasting glucose >/= 126 [...] 2022. Calcium 9.5 8.5 - 10.3 mg/dL [facility] Blood 03/17/2024 3:48 AM CDT 03/17/2024 5:31 AM CDT us Shane Alfredo MD LAB BLOOD ORDERABLES Fi nal Result Performing Organization Address [facility]/ZIP Co de Phone Number [facility] Department [place] [address] * eGFR (03/16/2024 3:16 AM CDT) eGFR [...] BLOOD ORDERABLES Fi nal Result [facility] Department [place] [address] * (ABNORMAL) Blood culture Blood (03/16/2024 3:16 AM CDT) Direct Specimen Exam Stain: Gram Positive Cocci in clusters Time to culture positivity (anaerobic media): 13.6 hours Report Final Report: Staphylococcus aureus For susceptibility results, refer to accession number [id number] on the blood culture from 03/14/24 (.) [facility] Organism STAPHYLOCOCCUS AUREUS [facility] Blood 03/16/2024 3:16 AM CDT 03/16/2024 6:18 AM CDT Narrative [facility] - 03/21/2024 1:19 PM DESKTOP OPERATOR Collection->Peripheral 1. ?Blood cultures are incubated for [...] organism identification may be performed using the [employer] Gram-Positive Blood Culture Assay. This assay detects microbial DNA in positive blood culture broth via hybridization of target DNA to capture oligonucleotides on a microarray. This assay has been cleared by the [place] Food and Drug Administration and its performance characteristics have been verified by the [facility] Microbiology Laboratory. 5. ?For questions about this culture, contact the Microbiology Laboratory at [phone]. Interpretive data was last revised on 2019. us Shane Alfredo MD LAB MICROBIOLOGY - GENE RAL ORDERABLES Final Result [facility] Department [place] [address] * (ABNORMAL) Blood culture Blood (03/16/2024 3:16 AM CDT) Direct Specimen Exam Stain: Gram Positive Cocci in clusters Time to culture positivity (anaerobic media): 13.2 hours Time to culture positivity (aerobic media): 15.3 hours Report Final Report: Staphylococcus aureus For susceptibility results, refer to accession number [id number] on the blood culture from 03/14/24 (.) [facility] Organism STAPHYLOCOCCUS AUREUS [facility] Blood 03/16/2024 3:16 AM CDT 03/16/2024 6:18 AM CDT Narrative [facility] - 03/19/2024 1:03 PM DESKTOP OPERATOR Collection->Peripheral 1. ?Blood cultures are incubated for [...] organism identification may be performed using the [employer] Gram-Positive Blood Culture Assay. This assay detects microbial DNA in positive blood culture broth via hybridization of target DNA to capture oligonucleotides on a microarray. This assay has been cleared by the [place] Food and Drug Administration and its performance characteristics have been verified by the [facility]biology Laboratory. 5. ?For questions about this culture, contact the Microbiology Laboratory at [phone]. Interpretive data was last revised on 2019. us Shnae Alfredo MD LAB MICROBIOLOGY - GENE RAL ORDERABLES Final Result [facility] Department [place] [address] * (ABNORMAL) CBC without differential (03/16/2024 3:16 AM CDT) [facility] WBC 6.4 3.8 - 9.9 K/cumm Hgb 11.4(L) 13.0 - 17.5 g/dL [facility] Hct 35.1(L) 38.9 - 50.3 % [facility] Plt 161 150 - 400 K/cumm [facility] MPV 11.3 9.1 - 12.3 fL [facility] RBC 3.86(L) 4.30 - 5.80 M/cumm [facility] MCV 90.9 81.3 - 96.4 fL [facility] MCH 29.5 27.1 - 33.3 pg [facility] MCHC 32.5 32.3 - 35.7 g/dL [facility] RDW CV 13.4 11.1 - 14.9 % [facility] RDW SD 44.3 35.7 - 48.1 fL [facility] NRBC abs 0.00 0.00 - 0.01 K/cumm [facility] Blood 03/16/2024 3:16 AM CDT 03/16/2024 6:00 AM CDT us Shane Alfredo MD LAB BLOOD ORDERABLES Fi nal Result Performing Organization Address City/[facility]/ZIP Co de Phone Number [facility] Department [place] [address] * Creatine kinase (CK), total (03/16/2024 3:16 AM CDT) [facility] CK 40 40 - 300 Units/L Blood 03/16/2024 3:16 AM CDT 03/16/2024 5:29 AM CDT us Armando Dodson TRAUMA COORDINATOR LAB BLOOD ORDERABLES Final Result [facility] [place] [address] * (ABNORMAL) Hepatic function panel (03/16/2024 3:16 AM CDT) Pathologist [facility] Bilirubin, total 0.4 0.1 - 1.2 mg/dL Bilirubin, direct <0.2 0.1 - 0.3 mg/dL [facility] Protein, pl 6.6 6.5 - 8.5 g/dL [facility] Albumin 3.3(L) 3.5 - 5.0 g/dL [facility] Alk phos 72 40 - 130 Units/L [facility] ALT 16 7 - 55 Units/L [facility] AST 25 10 - 50 Units/L [facility] Blood 03/16/2024 3:16 AM CDT 03/16/2024 5:29 AM CDT us Shane Alfredo MD LAB BLOOD ORDERABLES Fi nal Result [facility] Department [place] [address] * (ABNORMAL) Basic metabolic panel (03/16/2024 3:16 AM CDT) Pathologist [facility] Sodium 137 135 - 145 mmol/L Potassium, pl 5.0(H) 3.3 - 4.9 mmol/L [facility] Chloride 103 97 - 110 mmol/L [facility] CO2 26 22 - 32 mmol/L [facility] Anion gap 8 2 - 15 mmol/L [facility] BUN 18 6 - 25 mg/dL [facility] Creatinine 1.09 0.80 - 1.30 mg/dL [facility] Glucose 88 70 - 199 mg/dL [facility] Comment: Interpretive Data Fasting glucose >/= 126 [...] 2022. Calcium 9.1 8.5 - 10.3 mg/dL [facility] Blood 03/16/2024 3:16 AM CDT 03/16/2024 5:29 AM CDT us Shane Alfredo MD LAB BLOOD ORDERABLES Fi nal Result [facility] Department [place] [address] * XR Orthopantogram Panorex (03/15/2024 4:44 PM [...] for comparison. Multifocal dental extraction. ??Multifocal dental lutheran. ??No periapical lucencies. ??Dental caries in the right mandibular canine. Procedure Note Zaheer Perry DO - 03/15/2024 EXAMINATION: XR ORTHOPANTOGRAM/PANOREX HISTORY: Bacteremia. FINDINGS: 2 orthopantograms fiery for review and no prior imaging is available for comparison. Multifocal dental extraction. Multifocal dental lutheran. No periapical lucencies. Dental caries in the right mandibular canine. IMPRESSION: Dental caries of the right mandibular canine without periapical lucencies. Dictated by: Sharla Rueda M.D. The radiology attending physician has personally reviewed this study, and had reviewed and/or edited this written report and agrees with it. Electronically signed by: Zaheer Perry D.O. us Albin Stockton TRAUMA COORDINATOR IMG XR PROCEDURES Fin al Result [...] MD LAB BLOOD ORDERABLES Fi nal Result [facility] Department [place] [address] * Differential, auto (03/15/2024 4:28 AM CDT) Neutrophil abs 3.7 1.5 - 6.5 K/cumm Imm gran abs 0.0 0.0 - 0.1 K/cumm [facility] Lymphocyte abs 1.8 0.8 - 3.3 K/cumm [facility] Monocyte abs 0.8 0.2 - 0.8 K/cumm [facility] Eosinophil abs 0.1 0.0 - 0.5 K/cumm [facility] Basophil abs 0.0 0.0 - 0.1 K/cumm [facility] Neutrophil pct 57.2 % [facility] Comment: Interpretive Data Percent cell count reference ranges are not reported, since discordance with absolute values may lead to misinterpretation of CBC data. Current Interpretive Data was last revised on 2017. Imm gran pct 0.3 % [facility] Comment: Interpretive Data Percent cell count reference ranges are not reported, since discordance with absolute values may lead to misinterpretation of CBC data. Current Interpretive Data was last revised on 2017. Lymphocyte pct 27.2 % [facility] Comment: Interpretive Data Percent cell count reference ranges are not reported, since discordance with absolute values may lead to misinterpretation of CBC data. Current Interpretive Data was last revised on 2017. Monocyte pct 12.6 % [facility] Comment: Interpretive Data Percent cell count reference ranges are not reported, since discordance with absolute values may lead to misinterpretation of CBC data. Current Interpretive Data was last revised on 2017. Eosinophil pct 2.2 % [facility] Comment: Interpretive Data Percent cell count reference ranges are not reported, since discordance with absolute values may lead to misinterpretation of CBC data. Current Interpretive Data was last revised on 2017. Basophil pct 0.5 % [facility] Comment: Interpretive Data Percent cell count reference ranges are not reported, since discordance with absolute values may lead to misinterpretation of CBC data. Current Interpretive Data was last revised on 2017. Blood 03/15/2024 4:28 AM CDT 03/15/2024 5:37 AM CDT Shane Alfredo MD LAB BLOOD ORDERABLES Fi nal Result [facility] [place] [address] * (ABNORMAL) CBC with auto differential (03/15/2024 4:28 AM CDT) WBC 6.5 3.8 - 9.9 K/cumm Hgb 11.1(L) 13.0 - 17.5 g/dL [facility] Hct 34.2(L) 38.9 - 50.3 % [facility] Plt 165 150 - 400 K/cumm [facility] MPV 10.9 9.1 - 12.3 fL [facility] RBC 3.76(L) 4.30 - 5.80 M/cumm [facility] MCV 91.0 81.3 - 96.4 fL [facility] MCH 29.5 27.1 - 33.3 pg [facility] MCHC 32.5 32.3 - 35.7 g/dL [facility] RDW CV 13.3 11.1 - 14.9 % [facility] RDW SD 43.8 35.7 - 48.1 fL [facility] NRBC abs 0.00 0.00 - 0.01 K/cumm [facility] Blood 03/15/2024 4:28 AM CDT 03/15/2024 5:37 AM CDT Shane Alfredo MD LAB BLOOD ORDERABLES Fi nal Result [facility] Department [place] [address] * Blood culture Blood (03/15/2024 4:28 AM CDT) Report Final Report: No growth Blood 03/15/2024 4:28 AM CDT 03/15/2024 5:37 AM CDT Narrative [facility] - 03/19/2024 7:01 AM DESKTOP OPERATOR Collection->Peripheral 1. ?Blood cultures are incubated for [...] organism identification may be performed using the [employer] Gram-Positive Blood Culture Assay. This assay detects microbial DNA in positive blood culture broth via hybridization of target DNA to capture oligonucleotides on a microarray. This assay has been cleared by the [place] Food and Drug Administration and its performance characteristics have been verified by the [facility] Microbiology Laboratory. 5. ?For questions about this culture, contact the Microbiology Laboratory at [phone]. Interpretive data was last revised on 2019. us Shane Alfredo MD LAB MICROBIOLOGY - GENE RAL ORDERABLES Final Result [facility] Department [place] [address] * Blood culture Blood (03/15/2024 4:28 AM CDT) Report Final Report: No growth Blood 03/15/2024 4:28 AM CDT 03/15/2024 5:37 AM CDT Vince [facility] - 03/19/2024 7:01 AM DESKTOP OPERATOR Collection->Peripheral 1. ?Blood cultures are incubated for [...] organism identification may be performed using the [employer] Gram-Positive Blood Culture Assay. This assay detects microbial DNA in positive blood culture broth via hybridization of target DNA to capture oligonucleotides on a microarray. This assay has been cleared by the [place] Food and Drug Administration and its performance characteristics have been verified by the [facility] Microbiology Laboratory. 5. ?For questions about this culture, contact the Microbiology Laboratory at [phone]. Interpretive data was last revised on 2019. us Shane Alfredo MD LAB MICROBIOLOGY - [facility] ORDERABLES Final Result [facility] Department [place] [address] * (ABNORMAL) CBC without differential (03/15/2024 4:28 AM CDT) WBC 6.5 3.8 - 9.9 K/cumm Hgb 11.1(L) 13.0 - 17.5 g/dL [facility] Hct 34.2(L) 38.9 - 50.3 % [facility] Plt 165 150 - 400 K/cumm [facility] MPV 10.9 9.1 - 12.3 fL [facility] RBC 3.76(L) 4.30 - 5.80 M/cumm [facility] MCV 91.0 81.3 - 96.4 fL [facility] MCH 29.5 27.1 - 33.3 pg [facility] MCHC 32.5 32.3 - 35.7 g/dL [facility] RDW CV 13.3 11.1 - 14.9 % [facility] RDW SD 43.8 35.7 - 48.1 fL [facility] NRBC abs 0.00 0.00 - 0.01 K/cumm [facility] Blood 03/15/2024 4:28 AM CDT 03/15/2024 5:18 AM CDT Shane Alfredo MD LAB BLOOD ORDERABLES Fi nal Result Performing Organization Address City/[facility]/ZIP Co de Phone Number [facility] Department [place] [address] * (ABNORMAL) Hepatic function panel (03/15/2024 4:28 AM CDT) Bilirubin, total 0.4 0.1 - 1.2 mg/dL Bilirubin, direct <0.2 0.1 - 0.3 mg/dL [facility] Protein, pl 6.5 6.5 - 8.5 g/dL [facility] Albumin 3.3(L) 3.5 - 5.0 g/dL [facility] Alk phos 71 40 - 130 Units/L [facility] ALT 16 7 - 55 Units/L [facility] AST 25 10 - 50 Units/L [facility] Blood 03/15/2024 4:28 AM CDT 03/15/2024 5:18 AM CDT Shane Alfredo MD LAB BLOOD ORDERABLES Fi nal Result [facility] Department [place] [address] * Basic metabolic panel (03/15/2024 4:28 AM CDT) Sodium 137 135 - 145 mmol/L Potassium, pl 4.9 3.3 - 4.9 mmol/L [facility] Chloride 103 97 - 110 mmol/L [facility] CO2 26 22 - 32 mmol/L [facility] Anion gap 8 2 - 15 mmol/L [facility] BUN 20 6 - 25 mg/dL [facility] Creatinine 1.04 0.80 - 1.30 mg/dL [facility] Glucose 94 70 - 199 mg/dL [facility] Comment: Interpretive Data Fasting glucose >/= 126 [...] 2022. Calcium 8.9 8.5 - 10.3 mg/dL [facility] Blood 03/15/2024 4:28 AM CDT 03/15/2024 5:18 AM CDT us Shane Alfredo MD LAB BLOOD ORDERABLES Fi nal Result [facility] Department [place] [address] * eGFR (03/14/2024 4:01 AM CDT) eGFR [...] MD LAB BLOOD ORDERABLES Fi nal Result [facility] Department [place] [address] * (ABNORMAL) Blood culture Blood (03/14/2024 4:01 AM CDT) Direct Specimen Exam Stain: Gram Positive Cocci in clusters Time to culture positivity (aerobic media): 15.0 hours Time to culture positivity (anaerobic media): 18.0 hours Notification of: Gram Positive Cocci in clusters called to and read back by: Rocio Berry NP [phone] on 03/14/2024 23:38:16 by: Sinai Rose MT. Direct Specimen Exam Molecular Analysis: Methicillin-resist ant Staphylococcus aureus (MRSA) detected by the [employer] Blood Culture Nucleic Acid Test. This test does not exclude the possibility of a mixed bacterial infection. Notification of: Methicillin-resist ant Staphylococcus aureus called to and read back by: Rocio Berry NP [phone] on 03/14/2024 23:37:35 by: Sinai Rose MT. [facility] Report Final Report: Staphylococcus aureus Vancomycin Intermediate Methicillin resistant (MRSA) by penicillin binding protein 2a (PBP2a) testing. Staphylococcus aureus #2 Methicillin resistant (MRSA) by penicillin binding protein 2a (PBP2a) testing. * ??* ??* ??* ??* ??* ??* ??* ??* ??* ??* ??* ??* ??* ??* ??* ??* ??* ??* ??* Results called to and read back by: Armando Mejia MD [phone] on 03/18/2024 13:26:20 by: Cornelia Jackson MLS (.) [facility] Organism STAPHYLOCOCCUS AUREUS [facility] Organism STAPHYLOCOCCUS AUREUS [facility] Blood 03/14/2024 4:01 AM CDT 03/14/2024 4:56 AM CDT Narrative [facility] - 03/20/2024 1:13 PM DESKTOP OPERATOR Collection->Peripheral 1. ?Blood cultures are incubated for [...] organism identification may be performed using the [employer]ear[employer]ig[employer] Gram-Positive Blood Culture Assay. This assay detects microbial DNA in positive blood culture broth via hybridization of target DNA to capture oligonucleotides on a microarray. This assay has been cleared by the [place] Food and Drug Administration and its performance characteristics have been verified by the [facility] Microbiology Laboratory. 5. ?For questions about this culture, contact the Microbiology Laboratory at [phone]. Interpretive data was last revised on 2019. [...] us Shane Alfredo MD LAB MICROBIOLOGY - [facility] ORDERABLES Final Result [facility] Department [place] [address] * (ABNORMAL) Blood culture Blood (03/14/2024 4:01 AM CDT) Direct Specimen Exam Stain: Gram Positive Cocci in clusters Time to culture positivity (anaerobic media): 19.0 hours Report Final Report: Staphylococcus aureus For susceptibility results, refer to accession number [id number] on the blood culture from 03/14/2024 (.) [facility] Organism STAPHYLOCOCCUS AUREUS [facility] Blood 03/14/2024 4:01 AM CDT 03/14/2024 4:56 AM CDT Narrative [facility] - 03/19/2024 7:38 AM DESKTOP OPERATOR Collection->Peripheral 1. ?Blood cultures are incubated for [...] organism identification may be performed using the [employer] Gram-Positive Blood Culture Assay. This assay detects microbial DNA in positive blood culture broth via hybridization of target DNA to capture oligonucleotides on a microarray. This assay has been cleared by the [place] Food and Drug Administration and its performance characteristics have been verified by the [facility] Microbiology Laboratory. 5. ?For questions about this culture, contact the Microbiology Laboratory at [phone]. Interpretive data was last revised on 2019. us Shane Alfredo MD LAB MICROBIOLOGY - [facility] ORDERABLES Final Result [facility] Department [place] [address] * (ABNORMAL) CBC without differential (03/14/2024 4:01 AM CDT) [facility] WBC 7.0 3.8 - 9.9 K/cumm Hgb 11.2(L) 13.0 - 17.5 g/dL [facility] Hct 35.3(L) 38.9 - 50.3 % [facility] Plt 187 150 - 400 K/cumm [facility] MPV 11.0 9.1 - 12.3 fL [facility] RBC 3.82(L) 4.30 - 5.80 M/cumm [facility] MCV 92.4 81.3 - 96.4 fL [facility] MCH 29.3 27.1 - 33.3 pg [facility] MCHC 31.7(L) 32.3 - 35.7 g/dL [facility] RDW CV 13.4 11.1 - 14.9 % [facility] RDW SD 44.9 35.7 - 48.1 fL [facility] NRBC abs 0.00 0.00 - 0.01 K/cumm [facility] Blood 03/14/2024 4:01 AM CDT 03/14/2024 4:46 AM CDT us Shane Alfredo MD LAB BLOOD ORDERABLES Fi nal Result [facility] Department [place] [address] * Basic metabolic panel (03/14/2024 4:01 AM CDT) Sodium 136 135 - 145 mmol/L Potassium, pl 4.9 3.3 - 4.9 mmol/L [facility] Chloride 103 97 - 110 mmol/L [facility] CO2 26 22 - 32 mmol/L [facility] Anion gap 7 2 - 15 mmol/L [facility] BUN 22 6 - 25 mg/dL [facility] Creatinine 1.06 0.80 - 1.30 mg/dL [facility] Glucose 99 70 - 199 mg/dL [facility] Comment: Interpretive Data Fasting glucose >/= 126 [...] 2022. Calcium 9.0 8.5 - 10.3 mg/dL [facility] Blood 03/14/2024 4:01 AM CDT 03/14/2024 4:46 AM CDT us Shane Alfredo MD LAB BLOOD ORDERABLES Fi nal Result Performing Organization Address [facility] Co de Phone Number [facility] Department [place] [address] * eGFR (03/13/2024 4:10 AM CDT) eGFR [...] 4:10 AM CDT 03/13/2024 7:37 AM CDT us Shane Alfredo MD LAB BLOOD ORDERABLES Fi nal Result [facility] Department [place] [address] * Blood culture Blood (03/13/2024 4:10 AM [...] organism identification may be performed using the [employer] Gram-Positive Blood Culture Assay. This assay detects microbial DNA in positive blood culture broth via hybridization of target DNA to capture oligonucleotides on a microarray. This assay has been cleared by the [place] Food and Drug Administration and its performance characteristics have been verified by the [facility]biology [facility]. 5. ?For questions about this culture, contact the Microbiology Laboratory at [phone]. Interpretive data was last revised on 2019. us Shane Alfredo MD LAB MICROBIOLOGY - GENE [facility] ORDERABLES Final Result Performing Organization Address City/[facility]/ZIP Co de Phone Number [facility] Department [place] [address] * Blood culture Blood (03/13/2024 4:10 AM CDT) Report Final Report: No growth Blood 03/13/2024 4:10 AM CDT 03/13/2024 6:42 AM CDT Vince CHAUDHARY - 03/17/2024 7:00 AM CDT Collection->Peripheral 1. [...] organism identification may be performed using the [employer] Gram-Positive Blood Culture Assay. This assay detects microbial DNA in positive blood culture broth via hybridization of target DNA to capture oligonucleotides on a microarray. This assay has been cleared by the [place] Food and Drug Administration and its performance characteristics have been verified by the [facility]. 5. ?For questions about this culture, contact the Microbiology Laboratory at [phone]. Interpretive data was last revised on 2019. us Shane Alfredo MD LAB MICROBIOLOGY - GENE [facility] ORDERABLES Final Result [facility] [place] [address] * (ABNORMAL) CBC without differential (03/13/2024 4:10 AM CDT) WBC 6.6 3.8 - 9.9 K/cumm Hgb 11.8(L) 13.0 - 17.5 g/dL [facility] Hct 37.9(L) 38.9 - 50.3 % [facility] Plt 214 150 - 400 K/cumm [facility] MPV 11.1 9.1 - 12.3 fL [facility] RBC 4.14(L) 4.30 - 5.80 M/cumm [facility] MCV 91.5 81.3 - 96.4 fL [facility] MCH 28.5 27.1 - 33.3 pg [facility] MCHC 31.1(L) 32.3 - 35.7 g/dL [facility] RDW CV 13.3 11.1 - 14.9 % [facility] RDW SD 45.0 35.7 - 48.1 fL [facility] NRBC abs 0.00 0.00 - 0.01 K/cumm [facility] Blood 03/13/2024 4:10 AM CDT 03/13/2024 7:25 AM CDT us Shane Alfredo MD LAB BLOOD ORDERABLES Fi nal Result [facility] Department [place] [employer] [place] [address] * (ABNORMAL) Creatine kinase (CK), total (03/13/2024 4:10 AM CDT) Pathologist [facility] CK 36(L) 40 - 300 Units/L Blood 03/13/2024 4:10 AM CDT 03/13/2024 7:25 AM CDT us Armando Dodson TRAUMA COORDINATOR LAB BLOOD ORDERABLES Final Result [facility] Department [place] [employer] [place] [address] * Basic metabolic panel (03/13/2024 4:10 AM CDT) Pathologist [facility] Sodium 139 135 - 145 mmol/L Potassium, pl 4.5 3.3 - 4.9 mmol/L [facility] Chloride 103 97 - 110 mmol/L [facility] CO2 26 22 - 32 mmol/L [facility] Anion gap 10 2 - 15 mmol/L [facility] BUN 15 6 - 25 mg/dL [facility] Creatinine 0.94 0.80 - 1.30 mg/dL [facility] Glucose 88 70 - 199 mg/dL [facility] Comment: Interpretive Data Fasting glucose >/= 126 [...] 2022. Calcium 9.5 8.5 - 10.3 mg/dL [facility] Blood 03/13/2024 4:10 AM CDT 03/13/2024 7:25 AM CDT Shane Alfredo MD LAB BLOOD ORDERABLES Fi nal Result [facility] Department [place] [address] * eGFR (03/12/2024 5:37 AM CDT) eGFR [...] 5:37 AM CDT 03/12/2024 7:44 AM CDT Shane Alfredo MD LAB BLOOD ORDERABLES nal Result [facility] Department [place] [address] * Blood culture Blood (03/12/2024 5:37 AM [...] organism identification may be performed using the [employer] Gram-Positive Blood Culture Assay. This assay detects microbial DNA in positive blood culture broth via hybridization of target DNA to capture oligonucleotides on a microarray. This assay has been cleared by the [place] Food and Drug Administration and its performance characteristics have been verified by the [facility]biology [facility]. 5. ?For questions about this culture, contact the Microbiology Laboratory at [phone]. Interpretive data was last revised on 2019. us Shane Alfredo MD LAB MICROBIOLOGY - GENE [facility] ORDERABLES Final Result [facility] Department [place] [address] * Blood culture Blood (03/12/2024 5:37 AM CDT) Report Final Report: No growth Blood 03/12/2024 5:37 AM CDT 03/12/2024 7:35 AM CDT Narrative [facility] - 03/16/2024 12:00 PM CDT Collection->Peripheral 1. [...] performance characteristics have been verified by the [facility]biology Laboratory. 5. ?For questions about this culture, contact the Microbiology Laboratory at [phone]. Interpretive data was last revised on 2019. us Shane Alfredo MD LAB MICROBIOLOGY - GENE [facility] ORDERABLES Final Result [facility] Department [place] [address] * (ABNORMAL) CBC without differential (03/12/2024 5:37 AM CDT) WBC 5.9 3.8 - 9.9 K/cumm Hgb 11.4(L) 13.0 - 17.5 g/dL [facility] Hct 35.3(L) 38.9 - 50.3 % [facility] Plt 178 150 - 400 K/cumm [facility] MPV 11.1 9.1 - 12.3 fL [facility] RBC 3.86(L) 4.30 - 5.80 M/cumm [facility] MCV 91.5 81.3 - 96.4 fL [facility] MCH 29.5 27.1 - 33.3 pg [facility] MCHC 32.3 32.3 - 35.7 g/dL [facility] RDW CV 13.3 11.1 - 14.9 % [facility] RDW SD 44.5 35.7 - 48.1 fL [facility] NRBC abs 0.00 0.00 - 0.01 K/cumm [facility] Blood 03/12/2024 5:37 AM CDT 03/12/2024 7:28 AM CDT Shane Alfredo MD LAB BLOOD ORDERABLES Fi nal Result [facility] Department [place] [address] * Basic metabolic panel (03/12/2024 5:37 AM CDT) Sodium 140 135 - 145 mmol/L Potassium, pl 4.6 3.3 - 4.9 mmol/L [facility] Chloride 102 97 - 110 mmol/L [facility] CO2 25 22 - 32 mmol/L [facility] Anion gap 13 2 - 15 mmol/L [facility] BUN 15 6 - 25 mg/dL [facility] Creatinine 0.89 0.80 - 1.30 mg/dL [facility] Glucose 90 70 - 199 mg/dL [facility] Comment: Interpretive Data Fasting glucose >/= 126 [...] 2022. 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 05/13/2024 Insurance MEDICARE [facility] [employer]ARE [facility] MED[employer]ARE [facility] MEDICARE MEDICARE AARP AARP MEDICARE Advance Directives For more information, please contact: [phone] Documents on File Type Date Recorded Patient Industrial Engineering Analyst Expl anation ADVANCE DIRECTIVE 04/09/2024 10:06 PM POW ER OF C APPLICATION DEVELOPER-MEDICAL ADVANCE DIRECTIVE 03/01/2024 1:00 PM KEESHA R OF C APPLICATION DEVELOPER-MEDICAL * Full Code (Latest Code Status on [...] Vita Carias Spouse Health Care Agent Iris Gannon Other First Alternate Health Care Agent Care Teams Logistics Team Leader Relationship Specialty Start Date End Date Robert Whitlock MD [address] [facility] [address], [place] [address] PCP - General Internal Medicine 12/09/18 Brannon Nina MD Referring Physician Cardiology 02/10/18"
--- OUTSIDE RECORDS SUMMARY | 2024-06-12 16:39 | XMS_ITS | Encounter Summary ---
Author Organization [facility] Address [address] [place] [address] Phone Care Team Providers Care It Training Specialist Name Role Phone Brannon Nina MD Unavailable [phone] Robert Whitlock MD Primary Care Provider [phone] Encounter Details Date Type Department Care Team (Latest Contact Info) Description 07/18/2020 Orders Only [facility] Brannon Nina MD [address] [place] [address] Social History Tobacco Use Types Packs/Day Years Used Date Smoking Tobacco: Former Smokeless Tobacco: Never Alcohol Use Standard Drinks/Week Comments Yes 0 (1 standard drink = 0.6 oz pur e alcohol) Sex and Gender Information Value Date Recorded Sex Assigned at Not on file Legal Sex Male 1:22 AM HOME HEALTH 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 Gender Identity Not on file Sexual Orientation Not on file documented as of this encounter Plan of Treatment Not on file documented as of this encounter Procedures Procedure Name Priority Date/Time Associated Diagnosis Comments CARDIOLOGY DOCUMENT SCAN 07/18/2020 documented in this encounter Results * SCAN - CARDIOLOGY (07/18/2020) Anatomical Region Laterality Modality Other Brannon Nina MD CV CARDIAC SERVICES PROCEDURE S Final Result documented in this encounter Visit Diagnoses Not on filedocumented in this encounter Additional Health Concerns Infection Onset Date Last Indicated Resolved Time MRSA 02/29/2024 05/13/2024 documented as of this encounter Care Teams It Training Specialist Relationship Specialty Start Date End Date Robert Whitlock MD [address] [facility] [address] [place] [address] PCP - General Internal Medicine 12/09/18 Brannon Nina MD Referring Physician Cardiology 02/10/18 documented as of this encounter
--- NOTE | 2024-06-12 17:26 | PC.NURSE ---
called Marlen ureña Stonewall at 1725 and gave pt update and report to CHRIS Smith. all questions answered.
== END 2024-06-12 21:25 ==
PROVIDERS: Emergency Medicine; Emergency Provider Emergency Medicine; PCP Internal Medicine
DX: D64.9 Anemia, unspecified (principal); Z79.01 Long term (current) use of anticoagulants; Z79.82 Long term (current) use of aspirin; Z95.0 Presence of cardiac pacemaker; I25.10 Atherosclerotic heart disease of native coronary artery without angina pectoris; I10 Essential (primary) hypertension; Z95.2 Presence of prosthetic heart valve; Z87.891 Personal history of nicotine dependence
CPT/HCPCS: 36415; 80053; 85025; 85055; 99283

== ENCOUNTER 2025-02-01 11:10 | Emergency (ER) | payer MEDICARE, SELFPAY ==
[2025-02-01] VITALS (23 sets, daily range): BP systolic 150–171; BP diastolic 63–85; PULSE 60–66; RESP 13–25; TEMP 36.7; O2SAT 95–100
--- NOTE | ~2025-02-01 | CT_ITS ---
EXAMINATION: CTA BRAIN/CAROTID DATE: 02/01/2025 13:09 INDICATION: Balance is off. Fall. TECHNIQUE: Computed tomographic angiography (CTA) of the head and neck was performed with 100 mL Omnipaque-350 intravenous contrast. Multiplanar reconstructions and maximum intensity projection 3D-reconstructions of the carotid arteries and of the intracranial arteries were created by the technologist on a separate workstation. Precontrast CT of the head was also obtained. Automated exposure control and iterative reconstruction technique were employed.The dose-length product was 1634.91 mGy-cm. COMPARISON: None. FINDINGS: Head: No fracture. No acute intracranial hemorrhage, acute infarction or abnormal extra axial fluid collection. There is mild scattered white matter hypoattenuation consistent with chronic small vessel ischemic disease. Symmetric prominence of the sulci and ventricles consistent with moderate age-appropriate diffuse cerebral volume loss. Ventricles are normal and symmetric. No mass/mass effect. No abnormally enhancing brain lesions. Mucous retention cyst in the bilateral maxillary sinuses. Additional mild mucosal thickening in the bilateral ethmoid and maxillary sinuses. The orbits and mastoid air cells are normal. Intracranial arteries Vertebral arteries are codominant. Small amount of atherosclerotic calcifications at the bilateral carotid siphons. There is no hemodynamically significant stenosis in the vertebral, basilar and internal carotid arteries. Both A1 and P1 segments are patent. There are no aneurysms identified. Cerebral arterial arborization appears symmetric. Carotid arteries: The aortic arch and the great vessels arising from the arch are normal in caliber with no dissection or hemodynamically significant stenosis. Left vertebral artery is mildly dominant. There is minimal atherosclerotic plaque with 0% stenosis of the right carotid bulb relative to normal distal artery lum en diameter (NASCET criteria). There is no evident plaque with 0% stenosis of the left carotid bulb relative to normal distal artery lumen diameter. Cervical soft tissues are unremarkable. Moderate to severe lower cervical spondylosis. 3 mm anterolisthesis C7 on T1. There are mild chronic appearing superior endplate compression fractures at T1 and T3. Findings in the cervical and upper thoracic spine are unchanged since CT dated 05/06/2024. Moderate chronic biapical pleural-parenchymal scarring. IMPRESSION: 1. Minimal atherosclerotic plaque with 0% stenosis of the right carotid bulb relative to normal distal artery lumen diameter (NASCET criteria). 2. No atherosclerotic plaque with 0% stenosis of the left carotid bulb relative to normal distal artery lumen diameter. 3. Unremarkable cerebral CT angiogram with no hemodynamically significant stenosis, thrombosis or aneurysm. 4. Aging brain with no fracture or acute intracranial process. Reviewed, dictated and finalized at location A. IMPRESSION: 1. Minimal atherosclerotic plaque with 0% stenosis of the right carotid bulb re lative to normal distal artery lumen diameter (NASCET criteria). 2. No atherosclerotic plaque with 0% stenosis of the left carotid bulb relative to normal distal artery lumen diameter. 3. Unremarkable cerebral CT angiogram with no hemodynamically significant steno sis, thrombosis or aneurysm. 4. Aging brain with no fracture or acute intracranial process.
--- NOTE | ~2025-02-01 | XR_ITS ---
EXAMINATION: XR chest 1V portable COMPARISON: No comparisons available. HISTORY: cva? FINDINGS: Mild pulmonary venous congestion. No pneumothorax. Mild cardiomegaly. Mediastinal and hilar contours are within normal limits. Poststernotomy. Miscellaneous: Left pacemaker. Impression: Mild CHF Reviewed, dictated and finalized at location A. Impression: Mild CHF
--- NOTE | 2025-02-01 11:21 | ECG_ITS ---
Test Date: 2025-02-01 11:24:06 Measurements Intervals Rico Rate: 60 P: 240 HI: 246 QRS: -76 QRSD: 211 T: 85 QT: 501 QTc: 503 Interpretive Statements ELECTRONIC ATRIAL PACEMAKER ELECTRONIC VENTRICULAR PACEMAKER OCCASIONAL PREMATURE VENTRICULAR COMPLEXES ATYPICAL ECG Electronically Signed On 02-01-2025 12:35:50 CDT by Ham Stephens M.D.
--- NOTE | 2025-02-01 11:40 | ED.GENADULT ---
HPI - General Adult General Chief complaint: Neuro Symptoms/Deficit Stated complaint: Balance off, head feels different-fell Time Seen by Provider: 02/01/25 11:22 History of Present Illness HPI narrative: 84-year-old male presents emergency department for evaluation for gait instability that he noticed when he woke up this morning. Patient denies any recent illnesses denies any feeling of dizziness but states that he tends to ambulate he feels very unsteady. Patient denies any focal numbness or weakness. 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 Patient denies any prior history of CVA or GA. Patient is resting comfortably at time of evaluation. Related Data Home Medications ?Medication ?Instructions ?Recorded ?Confirmed ?Last Taken ?Type apixaban 5 mg tablet (Eliquis) 5 mg PO BID 02/20/24 05/04/24 05/03/24 History atorvastatin 20 mg tablet 20 mg PO DAILY 02/20/24 05/04/24 05/03/24 History donepezil 5 mg tablet 5 mg PO QHS 02/20/24 05/04/24 05/03/24 History metoprolol tartrate 25 mg tablet 25 mg PO QAM 02/20/24 05/04/24 05/03/24 History acetaminophen 500 mg capsule 500 mg PO Q6H PRN pain 05/04/24 05/04/24 Unknown History aspirin 81 mg tablet,delayed 81 mg PO DAILY 05/04/24 05/04/24 05/03/24 History release (Adult Aspirin Regimen) docusate sodium 100 mg capsule 100 mg PO BID 05/04/24 05/04/24 05/03/24 History niacin 500 mg capsule,extended 500 mg PO HS 05/04/24 05/04/24 05/03/24 History release polyethylene glycol 3350 17 17 g PO DAILY 05/04/24 05/04/24 Unknown History gram/dose oral powder (Miralax) Allergies Allergy/AdvReac Type Severity Reaction Status Date / Time No Known Allergies Allergy Verified 02/01/25 11:13 Review of Systems Review of Systems: All systems reviewed & are unremarkable except as noted in HPI and below PMFSH Past Medical History Medical History Pacemaker Aortic valve disease s/p AVR and aortic root replacement CAD (coronary artery disease) CABG 2000 Essential (primary) hypertension Family History Family History Sibling Malignant neoplasm of prostate Mother Family history of heart disease in male family member before age 55 Father Family history of heart disease in male family member before age 55 Social History Social History Smoking status: Former smoker Tobacco type: cigarettes Alcohol intake: never Substance use: never Do You Feel Safe in your Home?: Yes Lack of Transportation: No Lack of Food: Never True Current Housing: I Have Housing Concerned About Future Housing: No Difficulty Paying Gas/Electric Bills: No Difficulty Paying for Meds: No Currently Unemployed: No Education: High School Diploma/GED Difficulty w/ Childcare or Family Care: No Spiritual care concerns: No Exam Narrative: APPEARANCE: Well appearing, no pain, no distress, well-nourished. HEAD: normocephalic, atraumatic. EYES: PERRLA/EOMI, conjunctivae clear. NOSE: Normal no drainage EARS:TMS clear with good light reflex. THROAT: Pharynx clear, no exudate. NECK: Supple. No adenopathy, no masses. RESPIRATORY: Airway patent, respirations nonlabored. Clear to auscultation bilaterally, no rales, rhonchi, wheezing. CARDIOVASCULAR: Regular rate and rhythm without murmurs rubs or gallops. ABDOMINAL: Soft, nontender, nondistended, normal bowel sounds MUSCULOSKELETAL: Moves all extremities. Strength/ROM intact, No edema, No calf tenderness. NEURO: Alert. Cranial nerves II through XII intact. Grossly intact SKIN: Warm, dry. Normal Color Course Vital Signs Vital signs: Vital Signs Pulse Rate 66 02/01/25 11:21 Respiratory Rate 18 02/01/25 11:21 Pulse Oximetry 100 02/01/25 11:21 Temperature 98.0 F 02/01/25 11:28 Pulse Rate 62 02/01/25 16:22 Respiratory Rate 16 02/01/25 16:22 Blood Pressure 171/85 H 02/01/25 16:02 Pulse Oximetry 95 02/01/25 16:00 Oxygen Delivery Room Air 02/01/25 11:28 Medical Decision Making MDM Narrative Medical decision making narrative: 84-year-old male presenting to the emergency department complaining of gait instability that started this morning. Patient states he 1st noticed the gait instability with woke up. Patient reports multiple times as he was trying to ambulate his legs gave out he kept falling to the side. Patient denies any focal numbness or weakness with this patient denies having any sensation of lightheaded or dizziness with this. Patient was able to ambulate in the emergency department and patient has a normal neuro exam. Patient is currently afebrile with a leukocytosis hemoglobin of 13.0. No acute abnormalities on his CMP CTA was negative for acute intracranial abnormality. Patient was able to ambulate at his baseline and had a lengthy discussion with the patient patient does prefer to be admitted for further neurologic workup. We do not have any neurology coverage over the weekend. I discussed the case with Neurology in a confirm they are not available to see the patient. I discussed the case with the hospitalist and a.m. not willing to admit the patient for an MRI with the lack of neuro coverage. I discussed this with the patient and did offer transfer to [facility] or [facility] and patient declined. Patient was encouraged to return to the emergency department if you have any worsening symptoms. Patient and family are comfortable the plan for discharge and close follow-up. Patient was back to his normal baseline and was able to ambulate in the department without any of the issues he is experiencing this morning. Differential Diagnosis Differential Diagnosis: TIA, CVA, sevelamer time with subarachnoid hemorrhage, vertigo, dizziness, orthostatic hypotension, dehydration, lower extremity weakness Vital Signs Vital Signs: Vital Signs Pulse Rate 66 02/01/25 11:21 Respiratory Rate 18 02/01/25 11:21 Pulse Oximetry 100 02/01/25 11:21 Temperature 98.0 F 02/01/25 11:28 Pulse Rate 62 02/01/25 16:22 Respiratory Rate 16 02/01/25 16:22 Blood Pressure 171/85 H 02/01/25 16:02 Pulse Oximetry 95 02/01/25 16:00 Oxygen Delivery Room Air 02/01/25 11:28 Lab Data Lab results reviewed: Yes I reviewed the patient's lab results. 02/01/25 12:14 02/01/25 12:14 Labs: Lab Results 02/01/25 02/01/25 Range/Units 12:14 15:57 WBC 8.2 (4.5-10.0) K/mm3 RBC 4.61 (4.6-6.20) M/mm3 Hgb 13.0 L D (14.0-18.0) g/dL Hct 41.7 L (42.0-52.0) % MCV 90.5 (80-100) fl MCH 28.2 (26-34) pg MCHC 31.2 L (32-36) g/dl RDW 14.7 H (11.5-14.5) % Plt Count 135 L (150-375) k/mm3 MPV 11.1 H (7.4-10.4) fl Immature Gran % (Auto) 0.4 (0-0.5) % Neut % (Auto) 67.4 (45.5-73.1) % Lymph % (Auto) 25.1 (18.3-44.2) % [place] % (Auto) 6.1 (2.6-8.5) % Eos % (Auto) 0.6 (0-4.4) % Baso % (Auto) 0.4 (0.2-1.2) % Lymph # (Auto) 2.05 (0.9-3.2) K/mm3 [place] # (Auto) 0.5 (0.1-0.6) K/mm3 Eos # (Auto) 0.1 (0-0.3) K/mm3 Baso # (Auto) 0.0 (0.0-0.1) K/mm3 Abs Immat Gran (auto) 0.03 (0.00-0.031) K/mm3 Absolute Neuts (auto) 5.5 (1.3-6.7) K/mm3 Absolute Nucleated RBC 0.000 (0.0-0.012) K/mm3 Nucleated RBC % 0.0 (0.0-0.2) % % Immature Plt Fraction 5.5 (0.9-11.2) % Sodium 137 (137-145) mmol/L Potassium 4.9 (3.4-5.0) mmol/L Chloride 106 (98-107) mmol/L Carbon Dioxide 23 (22-30) mmol/L Anion Gap 8 (4-12) mmol/L BUN 22 H (9-20) mg/dL Creatinine 1.02 (0.7-1.3) mg/dL Estim Creat Clear Calc 48 ml/min Estimated GFR > 60 (59 - ) Glucose 124 H (65-110) mg/dL Calcium 9.2 (8.4-10.2) mg/dL Total Bilirubin 0.7 (0.2-1.3) mg/dL AST 46 (17-59) U/L ALT 26 (6-50) U/L Alkaline Phosphatase 75 (38-126) U/L Troponin I < 0.012 (0.000-0.034) ng/mL Total Protein 7.9 (6.3-8.2) g/dL Albumin 4.2 (3.5-5.1) g/dL Urine Color Yellow (Yellow) Urine Appearance Clear (Clear) Urine pH 7.5 (5.0-9.0) Ur Specific [place] 1.028 (1.001-1.035) Urine Protein Negative (Negative) mg/dL Urine Glucose (UA) Negative (Negative) mg/dL Urine Ketones Negative (Negative) mg/dL Ur Blood (Man) Negative (Negative) Urine Nitrate Negative (Negative) Urine Bilirubin Negative (Negative) Urine Urobilinogen 0.2 (<2.0) mg/dL Leukocyte Esterase Rfl Negative (Negative) MARLEN/UL Imaging Data Radiologist's impression: Impressions Head/Neck CTA 02/01/25 13:16 IMPRESSION: 1. Minimal atherosclerotic plaque with 0% stenosis of the right carotid bulb relative to normal distal artery lumen diameter (NASCET criteria). 2. No atherosclerotic plaque with 0% stenosis of the left carotid bulb relative to normal distal artery lumen diameter. 3. Unremarkable cerebral CT angiogram with no hemodynamically significant stenosis, thrombosis or aneurysm. 4. Aging brain with no fracture or acute intracranial process. Chest X-Ray 02/01/25 13:24 Impression: Mild CHF Discharge Plan Discharge Clinical Impression: Gait instability Patient Disposition: Home Condition: Stable Instructions: Antibiotic Form, Transient Ischemic Attack (ED) Additional Instructions: You were offered transfer to an outside hospital for MRI and further neurologic workup. You declined and preferred to have outpatient follow-up with your physicians. If you have any worsening symptoms then please call or return to the emergency department. Patient Language: Serbian Prescriptions: No Action atorvastatin 20 mg tablet 20 mg PO DAILY donepezil 5 mg tablet 5 mg PO QHS metoprolol tartrate 25 mg Tablet 25 mg PO QAM Eliquis 5 mg tablet 5 mg PO BID aspirin [Adult Aspirin Regimen] 81 mg tablet,delayed release (DR/EC) 81 mg PO DAILY acetaminophen 500 mg capsule 500 mg PO Q6H PRN (Reason: pain) docusate sodium 100 mg capsule 100 mg PO BID niacin 500 mg capsule, extended release 500 mg PO HS polyethylene glycol 3350 [Miralax] 17 gram/dose powder 17 g PO DAILY Follow-up/Referrals: Kamlesh,Robert Shetty MD [Primary Care Provider] Madhuri Bowen MD [Physician, Neurology]
--- OUTSIDE RECORDS SUMMARY | 2025-02-01 11:44 | XMS_ITS | Encounter Summary ---
Author Organization [facility] Address [address] [place] [address] Phone Care Team Providers Care Supervisor Wet Room Name Role Phone Brannon Nina MD Unavailable [phone] Robert Whitlock MD Primary Care Provider [phone] Encounter Details Date Type Department Care Team (Latest Contact Info) Description 07/18/2020 Orders Only [facility] Brannon Nina MD [address] [place] [address] Social History Tobacco Use Types Packs/Day Years Used Date Smoking Tobacco: Former Smokeless Tobacco: Never Alcohol Use Standard Drinks/Week Comments Yes 0 (1 standard drink = 0.6 oz pur e alcohol) Sex and Gender Information Value Date Recorded Sex Assigned at Not on file Legal Sex Male 1:22 AM [employer]CH[employer] Gender Identity Not on file Sexual Orientation [...] Onset Date Last Indicated Resolved Time MRSA Comment:MRSA Isolation Halfway 07/19/24 02/29/2024 05/13/2024 07/19/2024 6:[address] documented as of this encounter Care Teams Supervisor Wet Room Relationship Specialty Start Date End Date Robert Whitlock MD PCP - General Internal Medicine 12/09/18 Brannon Nina MD Referring Physician Cardiology 02/10/18 documented as of this encounter
--- OUTSIDE RECORDS SUMMARY | 2025-02-01 11:44 | XMS_ITS | Encounter Summary ---
Author Organization [facility] Address [address] [place] [address] Care Team Providers Care Engrosser Name Role Phone Brannon Nina MD Unavailable Robert Whitlock MD Primary Care Provider [phone] Encounter Details Date Type Department Care Team (Late st Contact Info) Description 05/31/2024 Orders Only [facility] [address] [place] [id number] Scanning, Provider Social History Tobacco Use Types Packs/Day Years Used Date Smoking Tobacco: Former Cigarettes Q uit: 1998 Passive Smoke Exposure: Never Smokeless Tobacco: Never Alcohol Use Standard Drinks/Week Comments Yes 0 (1 standard drink = 0.6 oz pur e alcohol) [facility] Utilities Answer Date Recorded In the past 12 months has [employer], gas, oil, or water [employer] threatened to shut off services in your home? Patient unable to answer 05/31/2024 Social Connection and Isolation Panel Answer Date Recorded In a typical week, how many times do you talk on the phone with family, friends, or neighbors? Patient unable to answer 05/31/2024 How often do you get togethe r with friends or relatives? Patient unable to answer 05/31/2024 How often do you attend [facility] or jainism services? Patient unable to answer 05/31/2024 Do you belong to any clubs o r organizations such as islam groups, unions, fraternal or athletic groups, or [...] any time in the past 12 m [facility], were you homeless or living in a residential (including now)? Patient unable to answer 05/31/2024 Personal Safety Answer Date Recorded Have you ever been in or are you currently in a harmful physical or emotional relationship or is someone making you feel afraid or unsafe? 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 Gender Identity Not on file Sexual Orientation Not on file documented as of this encounter Plan of Treatment Not on file documented as of this encounter Procedures Procedure Name Priority Date/Time Associated Diagnosis Comments CARDIOLOGY DOCUMENT SCAN 05/31/2024 9:28 PM TEACHERS' AIDE documented in this encounter Results * Cardiology Document Scan (05/31/2024 9:28 PM TEACHERS' AIDE) Anatomical Region Laterality Modality Other us Provider Scanning CV CARDIAC SERVICES PROCEDURES Final Result documented in this encounter Visit Diagnoses Not on filedocumented in this encounter Additional Health Concerns Infection Onset Date Last Indicated Resolved Time MRSA Comment:MRSA Isolation Custodial 07/19/24 02/29/2024 05/13/2024 07/19/2024 6:[address] documented as of this encounter Care Teams Engrosser Relationship Specialty Start Date End Date Robert Whitlock MD PCP - General Internal Medicine 12/09/18 Brannon Nina MD Referring Physician Cardiology 02/10/18 documented as of this encounter
--- OUTSIDE RECORDS SUMMARY | 2025-02-01 11:44 | XMS_ITS | Clinical Summary ---
Author Organization [facility] Address [address] [place] [address] Care Team Providers Care Civil Design Technician Name Role Phone Brannon Nina MD Unavailable [phone] Robert Whitlock MD Primary Care Provider [phone] Allergies No known active allergies Medications miconazole (SECURA THICK) 2 % cream Apply topically 2 (two) times a day 04/04/20 24 Active apixaban (Eliquis) 5 mg tablet Take 1 tablet (5 mg total) by mouth 2 (two) times a day 04/05/20 24 Active niacin ER 500 mg CR capsuleIndications :hypertriglyceride fannie Take 1 capsule (500 mg total) by mouth nightly 04/05/20 24 Active metoprolol XL (TOPROL-XL) 25 mg extended release tablet Take 1 tablet (25 mg total) by mouth daily 04/05/20 24 025 Active acetaminophen (TYLENOL) 500 mg tabletIndications: Fever,Pain Take 1 tablet (500 mg total) by mouth every 6 (six) hours as needed for pain 04/05/20 24 Active docusate sodium (COLACE) 100 mg capsuleIndications :constipation Take 1 capsule (100 mg total) by mouth 2 (two) times a day 04/05/20 24 Active polyethylene glycol (MIRALAX) 17 gram/dose bulk powderIndications: constipation Take 17 g by mouth daily 04/05/20 24 Active donepeziL (ARICEPT) 5 mg tablet TAKE 1 TABLET BY MOUTH AT NIGHT 90 tablet 3 04/10/20 24 Active ascorbic acid (ascorbic acid with tio hips) 500 mg tablet,chewable Take 1 tablet/chew tab (500 mg total) by mouth daily Active bisacodyL (DULCOLAX) 10 mg suppositoryIndicat ions:constipation Insert 1 suppository (10 mg total) into [...] mg total) by mouth daily 30 tablet 11 06/01/19 25 026 Active ceftaroline 600 mg in sodium chloride 0.9% 0.9% 35 mL IVPBIndications:Bl ood Stream/Endovascula r Infection Infuse 600 mg into a venous catheter every 12 (twelve) hours 05/31/19 25 Active mirtazapine (REMERON JALEN-TAB) 15 mg disintegrating tablet DISSOLVE 1 TABLET ON THE TONGUE EVERY NIGHT 30 tablet 11 07/11/19 25 Active doxycycline 100 mg tablet Take 1 tablet (100 mg total) by mouth 2 (two) times a day 60 tablet 1 12/23/19 25 Active Active Problems Problem Noted Date Diagnosed Date Severe malnutrition 05/31/2024 Thrombocytopenia 05/30/2024 Assessment & Plan (05/31/2024 11:40 AM HAND RIGGER): Thrombocytopenia developing from 05/26 onwards to 05/29 [...] 05/28/2024 Assessment & Plan (05/28/2024 2:22 AM HAND RIGGER): 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 Nursing reports that he is intermittently forgetful of where he is and why. - Home donepezil Irritation of skin of perianal region 05/28/2024 Assessment & Plan (05/28/2024 1:42 PM HAND RIGGER): Wound care consulted regarding breakdown to tej-anal area/posterior scrotum/groin areas. Skin denuded in areas, very tender to touch. Tej-anal area mirror images when buttock closed. Erythematous with satellite lesion extending into groin and scrotal area. Pictures in media tab - wound care as per wound care team recs: cleanse with skin cleanser. Apply a thin application of Antifungal Extra thick to all affected areas. Apply BID and PRN. Heart block 05/28/2024 Assessment & Plan (05/28/2024 1:52 PM HAND RIGGER): S/p ppm - tele Bacteremia 05/13/2024 Overview [...] (03/17-04/28). He initially presented this admission to [facility] with fevers and was found to have [...] suppression. Assessment & Plan (05/30/2024 1:37 PM HAND RIGGER): - Blood culture negative since 05/14. 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 Stable Assessment & Plan (07/20/2024 12:18 PM HAND RIGGER): stable, remains on antibiotics, no fever chills or sweats. Has been stable. Appetite is improving. 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 Planned six week course IV Daptomycin 700 mg Q 24 and Ceftaroline 600 mg Q12 for complicated MRSA bacteremia (EOT 04/28/24). - facility has not sent labs after multiple requests, awaiting labs for review. - discontinue IV Dapto and Ceftaroline today 04/28/24. - facility to arrange Right CVC removal. Assessment & Plan (04/05/2024 9:10 AM HAND RIGGER): Recently presented to [facility] with fevers and altered mental status. 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 The patient was instructed to come to [facility]. [facility] PPM implanted 02/16/2022. -Pacemaker [...] antibiotics in a supervised facility such as [facility] --> referrals made; awaiting to hear approval from [facility] arrival [facility] Ceft[facility]oline to facility -major case detective making plan with [facility] for possible discharge tomorrow Assessment & Plan (04/02/2024 12:51 PM HAND RIGGER): Recently presented to [facility] with fevers and altered mental status. 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 The patient was instructed to come to [facility]. [facility] P[facility] implanted 02/16/2022. -Pacemaker [...] antibiotics in a supervised facility such as [facility] --> referrals made; awaiting to hear approval from [facility] Assessment & Plan (04/01/2024 2:56 PM HAND RIGGER): Recently presented to [facility] with fevers and altered mental status. 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 The patient was instructed to come to [facility]. [facility] PPM implanted 02/16/2022. -Pacemaker [...] antibiotics in a supervised facility such as [facility] --> referrals made; awaiting to hear approval from [facility] Assessment & Plan (03/31/2024 9:42 AM HAND RIGGER): Recently presented to [facility] with fevers and altered mental status. 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 The patient was instructed to come to [facility]. [facility] PPM implanted 02/16/2022. -Pacemaker [...] referrals made; awaiting to hear approval from [facility] Assessment & Plan (03/30/2024 3:31 PM HAND RIGGER): Recently presented to [facility] with fevers and altered mental status. 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 The patient was instructed to come to [facility]. [facility] PPM implanted 02/16/2022. -Pacemaker [...] made Assessment & Plan (03/29/2024 10:35 AM HAND RIGGER): Recently presented to [facility] with fevers and altered mental status. 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 The patient was instructed to come to [facility]. [facility] PPM implanted 02/16/2022. -Pacemaker [...] place Assessment & Plan (03/26/2024 3:54 PM HAND RIGGER): Recently presented to [facility] with fevers and altered mental status. 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 The patient was instructed to come to [facility]. [facility] PPM implanted 02/16/2022. -Pacemaker [...] ceftaroline Assessment & Plan (03/25/2024 2:27 PM HAND RIGGER): Recently presented to [facility] with fevers and altered mental status. 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 The patient was instructed to come to [facility]. [facility] PPM implanted 02/16/2022. -Pacemaker [...] ceftaroline Assessment & Plan (03/24/2024 8:46 AM HAND RIGGER): Recently presented to [facility] with fevers and altered mental status. 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 The patient was instructed to come to [facility]. [facility] PPM implanted 02/16/2022. -Pacemaker [...] ceftaroline Assessment & Plan (03/23/2024 2:08 PM HAND RIGGER): Recently presented to [facility] with fevers and altered mental status. 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 The patient was instructed to come to [facility]. [facility] PPM implanted 02/16/2022. -Pacemaker [...] ceftaroline Assessment & Plan (03/22/2024 12:57 PM HAND RIGGER): Recently presented to [facility] with fevers and altered mental status. 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 The patient was instructed to come to [facility]. [facility] PPM implanted 02/16/2022. -Pacemaker [...] ceftaroline Assessment & Plan (03/21/2024 10:23 AM HAND RIGGER): Recently presented to [facility] with fevers and altered mental status. 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 The patient was instructed to come to [facility]. [facility] PPM implanted 02/16/2022. -Pacemaker [...] ceftaroline Assessment & Plan (03/20/2024 11:31 AM HAND RIGGER): Recently presented to [facility] with fevers and altered mental status. 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 The patient was instructed to come to [facility]. [facility] PPM implanted 02/16/2022. 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 Assessment & Plan (03/19/2024 1:23 PM HAND RIGGER): Recently presented to [facility] with fevers and altered mental status. 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 The patient was instructed to come to [facility]. [facility] PPM implanted 02/16/2022. -Pacemaker [...] (03/18/2024 1:10 PM CDT): Recently presented to [facility] with fevers and altered mental status. 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 The patient was instructed to come to [facility]. [facility] PPM implanted 02/16/2022. -Pacemaker [...] (03/17/2024 8:57 AM CDT): Recently presented to [facility] with fevers and altered mental status. 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 The patient was instructed to come to [facility]. [facility] PPM implanted 02/16/2022. -Pacemaker [...] (03/16/2024 9:37 AM CDT): Recently presented to [facility] with fevers and altered mental status. 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 The patient was instructed to come to [facility]. [facility] PPM implanted 02/16/2022. -Pacemaker [...] (03/14/2024 12:10 PM CDT): Recently presented to [facility] with fevers and altered mental status. 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 The patient was instructed to come to [facility]. [facility] PPM implanted 02/16/2022. -Pacemaker [...] (03/13/2024 9:26 AM CDT): Recently presented to [facility] with fevers and altered mental status. 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 The patient was instructed to come to [facility]. [facility] PPM implanted 02/16/2022. -Pacemaker [...] 03/09/2024 Assessment & Plan (04/05/2024 9:11 AM HAND RIGGER): Valdez catheter removed by RN post procedure on 03/08 and noted foul discharge upon removal. Patient also with altered mental status at the time. UA showing 2+ LE, >50 WBC, and 3+ bacteria. -S/p empiric IV Ceftriaxone 03/08-03/11 -Urine culture with no growth -Ceftriaxone discontinued Assessment & Plan (04/02/2024 12:51 PM HAND RIGGER): Valdez catheter removed by RN post procedure on 03/08 and noted foul discharge upon removal. Patient also with altered mental status at the time. UA showing 2+ LE, >50 WBC, and 3+ bacteria. -S/p empiric IV Ceftriaxone 03/08-03/11 -Urine culture with no growth -Ceftriaxone discontinued Assessment & Plan (04/01/2024 2:51 PM HAND RIGGER): Valdez catheter removed by RN post procedure on 03/08 and noted foul discharge upon removal. Patient also with altered mental status at the time. UA showing 2+ LE, >50 WBC, and 3+ bacteria. -S/p empiric IV Ceftriaxone 03/08-03/11 -Urine culture with no growth -Ceftriaxone discontinued Assessment & Plan (03/31/2024 9:42 AM HAND RIGGER): Valdez catheter removed by RN post procedure on 03/08 and noted foul discharge upon removal. Patient also with altered mental status at the time. UA showing 2+ LE, >50 WBC, and 3+ bacteria. -S/p empiric IV Ceftriaxone 03/08-03/11 -Urine culture with no growth -Ceftriaxone discontinued Assessment & Plan (03/30/2024 3:29 PM HAND RIGGER): Valdez catheter removed by RN post procedure on 03/08 and noted foul discharge upon removal. Patient also with altered mental status at the time. UA showing 2+ LE, >50 WBC, and 3+ bacteria. -S/p empiric IV Ceftriaxone 03/08-03/11 -Urine culture with no growth -Ceftriaxone discontinued Assessment & Plan (03/29/2024 10:36 AM HAND RIGGER): Valdez catheter removed by RN post procedure on 03/08 and noted foul discharge upon removal. Patient also with altered mental status at the time. UA showing 2+ LE, >50 WBC, and 3+ bacteria. -S/p empiric IV Ceftriaxone 03/08-03/11 -Urine culture with no growth -Ceftriaxone discontinued Assessment & Plan (03/26/2024 3:55 PM HAND RIGGER): Valdez catheter removed by RN post procedure on 03/08 and noted foul discharge upon removal. Patient also with altered mental status at the time. Sent clean catch UA showing 2+ LE, >50 WBC, and 3+ bacteria. -S/p empiric IV Ceftriaxone 03/08-03/11 -Urine culture with no growth -Ceftriaxone discontinued Assessment & Plan (03/25/2024 2:28 PM HAND RIGGER): Valdez catheter removed by RN post procedure on 03/08 and noted foul discharge upon removal. Patient also with altered mental status at the time. Sent clean catch UA showing 2+ LE, >50 WBC, and 3+ bacteria. -S/p empiric IV Ceftriaxone 03/08-03/11 -Urine culture with no growth -Ceftriaxone discontinued Assessment & Plan (03/24/2024 8:47 AM HAND RIGGER): Valdez catheter removed by RN post procedure on 03/08 and noted foul discharge upon removal. Patient also with altered mental status at the time. Sent clean catch UA showing 2+ LE, >50 WBC, and 3+ bacteria. -S/p empiric IV Ceftriaxone 03/08-03/11 -Urine culture with no growth -Ceftriaxone discontinued Assessment & Plan (03/23/2024 2:08 PM HAND RIGGER): Valdez catheter removed by RN post procedure on 03/08 and noted foul discharge upon removal. Patient also with altered mental status at the time. Sent clean catch UA showing 2+ LE, >50 WBC, and 3+ bacteria. -S/p empiric IV Ceftriaxone 03/08-03/11 -Urine culture with no growth -Ceftriaxone discontinued Assessment & Plan (03/22/2024 1:00 PM HAND RIGGER): Valdez catheter removed by RN post procedure on 03/08 and noted foul discharge upon removal. Patient also with altered mental status at the time. Sent clean catch UA showing 2+ LE, >50 WBC, and 3+ bacteria. -S/p empiric IV Ceftriaxone 03/08-03/11 -Urine culture with no growth -Ceftriaxone discontinued Assessment & Plan (03/21/2024 10:27 AM HAND RIGGER): Valdez catheter removed by RN post procedure on 03/08 and noted foul discharge upon removal. Patient also with altered mental status at the time. Sent clean catch UA showing 2+ LE, >50 WBC, and 3+ bacteria. -S/p empiric IV Ceftriaxone 03/08-03/11 -Urine culture with no growth -Ceftriaxone discontinued Assessment & Plan (03/20/2024 11:32 AM HAND RIGGER): Valdez catheter removed by RN post procedure on 03/08 and noted foul discharge upon removal. Patient also with altered mental status at the time. Sent clean catch UA showing 2+ LE, >50 WBC, and 3+ bacteria. -S/p empiric IV Ceftriaxone 03/08-03/11 -Urine culture with no growth -Ceftriaxone discontinued Assessment & Plan (03/19/2024 1:17 PM HAND RIGGER): Valdez catheter removed by RN post procedure [...] 03/07/2024 Assessment & Plan (04/03/2024 10:53 AM HAND RIGGER): Acute delirium on chronic memory loss -ID recommended BUILDING COORDINATOR imaging given falls at home and unclear baseline mental status -Unable to perform MRI in setting of temporary pacemaker -CT head w/contrast (03/08) with no acute intracranial abnormality -Delirium improved post anesthesia -Delirium and fall precautions -PT/OT-patient walking the halls with his walker with staff -remains to have VPO in place Assessment & Plan (04/02/2024 12:53 PM HAND RIGGER): Acute delirium on chronic memory loss -ID recommended BUILDING COORDINATOR imaging given falls at home and unclear baseline mental status -Unable to perform MRI in setting of temporary pacemaker -CT head w/contrast (03/08) with no acute intracranial abnormality -Delirium improved post anesthesia -Delirium and fall precautions -PT/OT-patient walking the halls with his walker and PCT today Assessment & Plan (04/01/2024 2:52 PM HAND RIGGER): Acute delirium on chronic memory loss -ID recommended BUILDING COORDINATOR imaging given falls at home and unclear baseline mental status -Unable to perform MRI in setting of temporary pacemaker -CT head w/contrast (03/08) with no acute intracranial abnormality -Delirium improved post anesthesia -Delirium and fall precautions Assessment & Plan (03/31/2024 9:39 AM HAND RIGGER): Acute delirium on chronic memory loss -ID recommended BUILDING COORDINATOR imaging given falls at home and unclear baseline mental status -Unable to perform MRI in setting of temporary pacemaker -CT head w/contrast (03/08) with no acute intracranial abnormality -Delirium improved post anesthesia -Delirium and fall precautions Assessment & Plan (03/30/2024 3:19 PM HAND RIGGER): Acute delirium on chronic memory loss -ID recommended BUILDING COORDINATOR imaging given falls at home and unclear baseline mental status -Unable to perform MRI in setting of temporary pacemaker -CT head w/contrast (03/08) with no acute intracranial abnormality -Delirium improved post anesthesia -Delirium and fall precautions Assessment & Plan (03/28/2024 8:58 AM HAND RIGGER): Acute delirium on chronic memory loss -ID recommended BUILDING COORDINATOR imaging given falls at home and unclear baseline mental status -Unable to perform MRI in setting of temporary pacemaker -CT head w/contrast (03/08) with no acute intracranial abnormality -Delirium improved post anesthesia -Delirium and fall precautions Assessment & Plan (03/26/2024 3:54 PM HAND RIGGER): Acute delirium on chronic memory loss -ID recommended BUILDING COORDINATOR imaging given falls at home and unclear baseline mental status -Unable to perform MRI in setting of temporary pacemaker -CT head w/contrast (03/08) with no acute intracranial abnormality -Delirium improved post anesthesia -Continue VPO -Delirium and fall precautions Assessment & Plan (03/25/2024 2:28 PM HAND RIGGER): Acute delirium on chronic memory loss -ID recommended BUILDING COORDINATOR imaging given falls at home and unclear baseline mental status -Unable to perform MRI in setting of temporary pacemaker -CT head w/contrast (03/08) with no acute intracranial abnormality -Delirium improved post anesthesia -Continue VPO -Delirium and fall precautions Assessment & Plan (03/24/2024 8:43 AM HAND RIGGER): Acute delirium on chronic memory loss -ID recommended BUILDING COORDINATOR imaging given falls at home and unclear baseline mental status -Unable to perform MRI in setting of temporary pacemaker -CT head w/contrast (03/08) with no acute intracranial abnormality -Delirium improved post anesthesia -Continue VPO -Delirium and fall precautions Assessment & Plan (03/23/2024 1:58 PM HAND RIGGER): Acute delirium on chronic memory loss -ID recommended BUILDING COORDINATOR imaging given falls at home and unclear baseline mental status -Unable to perform MRI in setting of temporary pacemaker -CT head w/contrast (03/08) with no acute intracranial abnormality -Delirium improved post anesthesia -Continue VPO -Delirium and fall precautions Assessment & Plan (03/22/2024 12:54 PM HAND RIGGER): Acute delirium on chronic memory loss -ID recommended BUILDING COORDINATOR imaging given falls at home and unclear baseline mental status -Unable to perform MRI in setting of temporary pacemaker -CT head w/contrast (03/08) with no acute intracranial abnormality -Delirium improved post anesthesia -Continue VPO -Delirium and fall precautions Assessment & Plan (03/21/2024 10:27 AM HAND RIGGER): Acute delirium on chronic memory loss -ID recommended BUILDING COORDINATOR imaging given falls at home and unclear baseline mental status -Unable to perform MRI in setting of temporary pacemaker -CT head w/contrast (03/08) with no acute intracranial abnormality -Delirium improved post anesthesia -Continue VPO -Delirium and fall precautions Assessment & Plan (03/20/2024 11:28 AM HAND RIGGER): Acute delirium on chronic memory loss -ID recommended BUILDING COORDINATOR imaging given falls at home and unclear baseline mental status -Unable to perform MRI in setting of temporary pacemaker -CT head w/contrast (03/08) with no acute intracranial abnormality -Delirium improved post anesthesia -Continue VPO -Delirium and fall precautions Assessment & Plan (03/19/2024 1:17 PM HAND RIGGER): Acute delirium on chronic memory loss -ID recommended BUILDING COORDINATOR imaging given falls at home and unclear baseline mental status -Unable to perform MRI in setting of temporary pacemaker -CT head w/contrast (03/08) with no acute intracranial abnormality -Delirium improved post anesthesia -Continue VPO -Delirium and fall precautions Assessment & Plan (03/18/2024 1:04 PM CDT): Acute delirium on chronic memory loss -ID recommended BUILDING COORDINATOR imaging given falls at home and unclear baseline mental status -Unable to perform MRI in setting of temporary pacemaker -CT head w/contrast (03/08) with no acute intracranial abnormality -Delirium improved post anesthesia -Continue 1:1 sitter -Delirium and fall precautions Assessment & Plan (03/17/2024 8:46 AM CDT): Acute delirium on chronic memory loss -ID recommended BUILDING COORDINATOR imaging given falls at home and unclear baseline mental status -Unable to perform MRI in setting of temporary pacemaker -CT head w/contrast (03/08) with no acute intracranial abnormality -Delirium improved post anesthesia -Continue 1:1 sitter -Delirium and fall precautions Assessment & Plan (03/16/2024 9:35 AM CDT): Acute delirium on chronic memory loss -ID recommended BUILDING COORDINATOR imaging given falls at home and unclear baseline mental status -Unable to perform MRI in setting of temporary pacemaker -CT head w/contrast (03/08) with no acute intracranial abnormality -Delerium improved post anesthesia -Continue 1:1 sitter -Delirium and Fall precautions Assessment & Plan (03/14/2024 12:04 PM CDT): Acute delirium on chronic memory loss -ID recommended BUILDING COORDINATOR imaging given falls at home and unclear baseline mental status -Unable to perform MRI in setting of temporary pacemaker -CT head w/contrast (03/08) with no acute intracranial abnormality -Delerium improved post anesthesia -Continue 1:1 sitter -Delirium and Fall precautions Assessment & Plan (03/13/2024 9:26 AM CDT): Acute delirium on chronic memory loss -ID recommended BUILDING COORDINATOR imaging given falls at home and unclear baseline mental status -Unable to perform MRI in setting of temporary pacemaker -CT head w/contrast (03/08) with no acute intracranial abnormality -Delerium improved post anesthesia -Continue 1:1 sitter -Delirium and Fall precautions Assessment & Plan (03/12/2024 3:53 PM CDT): Acute delirium on chronic memory loss -ID recommended BUILDING COORDINATOR imaging given falls at home and unclear baseline mental status -Unable to perform MRI in setting of temporary pacemaker -CT head w/contrast (03/08) with no acute intracranial abnormality -Continue 1:1 sitter -Delirium and Fall precautions Assessment & Plan (03/11/2024 2:04 PM CDT): -ID recommended BUILDING COORDINATOR imaging given falls at home and unclear [...] at this time -per ID, please obtain BUILDING COORDINATOR imaging given falls at home and unclear [...] at this time -per ID, please obtain BUILDING COORDINATOR imaging given falls at home and unclear [...] for 1:1 sitter -per ID, please obtain BUILDING COORDINATOR imaging given falls at home and unclear baseline mental status, there is concern for BUILDING COORDINATOR infection -unable to perform MRI in setting of temporary pacer, will obtain CT head w/ contrast Assessment & Plan (03/07/2024 12:08 PM CDT): -cont home donepezil -monitor for delirium and falls -hold trazodone and ramelteon tonight in setting of increased confusion x7 days -recent need for 1:1 sitter Bloodstream infection associated with cardiovasc ular device 03/03/2024 Assessment & Plan (03/13/2024 11:23 AM CDT): Patient is a 83 y.o. man with history of prosthetic aortic valve, PPM (Feb 2022) and recent admission for MRSA bacteremia at [facility] who was admitted on 02/29/2024 due to [...] had multiple days of therapeutic vancomycin at [facility]. Fortunately, prosthetic aortic valve did not appear [...] trileaflet aortic valve. Head CT without acute BUILDING COORDINATOR findings. Results: Blood cultures 02/28: MRSA 2 [...] BioAVR in 2009. ECHO in follow up, Linda. Adjustment and management of cardiac pacemaker 1 Bradycardia 01/26/2022 Overview (01/26/2022): Added automatically from request for surgery [id number] Assessment & Plan (02/17/2022 9:33 AM CDT): [...] determine when to restart Sinus node dysfunction 12/14/2021 Assessment & Plan (09/10/2022 1:54 PM CDT): SP PPM, follow up per EP. Memory loss 07/16/2020 Assessment & Plan (04/05/2024 9:09 AM HAND RIGGER): Acute delirium on chronic memory loss -See acute delirium for A&P -Improved since anesthesia and pt cooperative but only oriented to person/place-unclear what patient's true baseline is (PCP office notes mention memory loss) -Could consider increasing Aricept to 10mg upon discharge Assessment & Plan (04/02/2024 12:51 PM HAND RIGGER): Acute delirium on chronic memory loss -See acute delirium for A&P -Improved since anesthesia and pt cooperative but only oriented to person/place-unclear what patient's true baseline is (PCP office notes mention memory loss) -Could consider increasing Aricept to 10mg upon discharge Assessment & Plan (04/01/2024 2:51 PM HAND RIGGER): Acute delirium on chronic memory loss -See acute delirium for A&P -Improved since anesthesia and pt cooperative but only oriented to person/place-unclear what patient's true baseline is (PCP office notes mention memory loss) -Could consider increasing Aricept to 10mg upon discharge Assessment & Plan (03/31/2024 9:41 AM HAND RIGGER): Acute delirium on chronic memory loss -See acute delirium for A&P -Improved since anesthesia and pt cooperative but only oriented to person/place-unclear what patient's true baseline is (PCP office notes mention memory loss) -Could consider increasing Aricept to 10mg upon discharge Assessment & Plan (03/30/2024 3:21 PM HAND RIGGER): Acute delirium on chronic memory loss -See acute delirium for A&P -Improved since anesthesia and pt cooperative but only oriented to person/place-unclear what patient's true baseline is (PCP office notes mention memory loss) -Could consider increasing Aricept to 10mg upon discharge Assessment & Plan (03/29/2024 10:34 AM HAND RIGGER): Acute delirium on chronic memory loss -See acute delirium for A&P -Improved since anesthesia and pt cooperative but only oriented to person/place-unclear what patient's true baseline is (PCP office notes mention memory loss) -could consider increasing Aricept to 10mg upon discharge Assessment & Plan (03/26/2024 3:55 PM HAND RIGGER): Acute delirium on chronic memory loss -See acute delirium for A&P -Improved since anesthesia and pt cooperative but only oriented to person/place-unclear what patient's true baseline is (PCP office notes mention memory loss) -Restart Trazodone if increased agitation Assessment & Plan (03/25/2024 2:28 PM HAND RIGGER): Acute delirium on chronic memory loss -See acute delirium for A&P -Improved since anesthesia and pt cooperative but only oriented to person/place-unclear what patient's true baseline is (PCP office notes mention memory loss) -Restart Trazodone if increased agitation Assessment & Plan (03/24/2024 8:46 AM HAND RIGGER): Acute delirium on chronic memory loss -See acute delirium for A&P -Improved since anesthesia and pt cooperative but only oriented to person/place-unclear what patient's true baseline is (PCP office notes mention memory loss) -Restart Trazodone if increased agitation Assessment & Plan (03/23/2024 2:07 PM HAND RIGGER): Acute delirium on chronic memory loss -See acute delirium for A&P -Improved since anesthesia and pt cooperative but only oriented to person/place-unclear what patient's true baseline is (PCP office notes mention memory loss) -Restart Trazodone if increased agitation Assessment & Plan (03/22/2024 12:56 PM HAND RIGGER): Acute delirium on chronic memory loss -See acute delirium for A&P -Improved since anesthesia and pt cooperative but only oriented to person/place-unclear what patient's true baseline is (PCP office notes mention memory loss) -Restart Trazodone if increased agitation Assessment & Plan (03/20/2024 11:30 AM HAND RIGGER): Acute delirium on chronic memory loss -See acute delirium for A&P -Improved since anesthesia and pt cooperative but only oriented to person/place-unclear what patient's true baseline is (PCP office notes mention memory loss) -Restart Trazodone if increased agitation Assessment & Plan (03/19/2024 1:17 PM HAND RIGGER): Acute delirium on chronic memory loss -See [...] qday Assessment & Plan (07/16/2020 12:33 PM HAND RIGGER): Will check screening labs. 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 Denies dream enactment. + Memory loss PLMD (periodic limb movement disorder) 8 Overview (03/04/2018): Not associated with arousal Atrial fibrillation 02/10/2018 Assessment & Plan (10/31/2024 2:35 PM CDT): Stable and doing well. Remains on apixaban. Assessment & Plan (04/03/2024 10:51 AM HAND RIGGER): History of persistent A. Fib on Eliquis -Currently rate controlled -Continue metoprolol XL 25 mg daily -Continue Eliquis 5 mg BID -Telemetry monitoring Assessment & Plan (04/02/2024 12:51 PM HAND RIGGER): History of persistent A. Fib on Eliquis -Currently rate controlled -Continue metoprolol XL 25 mg daily -Continue Eliquis 5 mg BID -Telemetry monitoring Assessment & Plan (04/01/2024 2:52 PM HAND RIGGER): History of persistent A. Fib on Eliquis -Currently rate controlled -Continue metoprolol Xl 25 mg daily -Continue Eliquis 5 mg BID -Telemetry monitoring Assessment & Plan (03/31/2024 9:40 AM HAND RIGGER): History of persistent A. Fib on Eliquis -Currently SB/NSR, temp pacer set VVI at 50 -Resumed Eliquis per EP, hold prior to PPM placement and resume based on EP recs -Telemetry monitoring Assessment & Plan (03/30/2024 3:20 PM HAND RIGGER): History of persistent A. Fib on Eliquis -Currently SB/NSR, temp pacer set VVI at 50 -Resumed Eliquis per EP, hold prior to PPM placement and resume based on EP recs -Telemetry monitoring Assessment & Plan (03/29/2024 10:29 AM HAND RIGGER): History of persistent A. Fib on Eliquis -Currently SB/NSR, temp pacer set VVI at 50 -Resumed Eliquis per EP, given ok to continue Eliquis with pending pacer placement -Telemetry monitoring Assessment & Plan (03/26/2024 3:54 PM HAND RIGGER): History of persistent A. Fib on Eliquis -Currently SB/NSR, temp pacer set VVI at 50 -Resumed Eliquis per EP -Appreciate EP recs regarding AC prior to placement of PPM -Telemetry monitoring Assessment & Plan (03/25/2024 2:27 PM HAND RIGGER): History of persistent A. Fib on Eliquis -Currently SB/NSR, temp pacer set VVI at 50 -Resumed Eliquis per EP -Appreciate EP recs regarding AC prior to placement of PPM -Telemetry monitoring Assessment & Plan (03/24/2024 8:43 AM HAND RIGGER): History of persistent A. Fib on Eliquis -Currently SB/NSR, temp pacer set VVI at 50 -Resumed Eliquis per EP -Appreciate EP recs regarding AC prior to placement of PPM -Telemetry monitoring Assessment & Plan (03/23/2024 2:06 PM HAND RIGGER): History of persistent A. Fib on Eliquis -Currently SB/NSR, temp pacer set VVI at 50 -Resumed Eliquis per EP -Appreciate EP recs regarding AC prior to placement of PPM -Telemetry monitoring Assessment & Plan (03/22/2024 12:56 PM HAND RIGGER): History of persistent A. Fib on Eliquis -Currently V-paced, VVI at 50 -Per EP, resume Eliquis today -Appreciate EP recs regarding holding Eliquis prior to placement of PPM -Telemetry monitoring Assessment & Plan (03/21/2024 10:26 AM HAND RIGGER): History of persistent A. Fib on Eliquis -Currently V-paced, VVI at 50 -Holding Eliquis for procedure -Hold therapeutic anticoagulation given bleeding risk s/p PPM and lead extraction -SQ heparin for DVT ppx (Ok per EP) -Telemetry monitoring Assessment & Plan (03/20/2024 11:29 AM HAND RIGGER): History of persistent A. Fib on Eliquis. -S/p temporary pacemaker placement on 03/06 and removal of PPM on 03/07 -Currently V-paced, HR 70s -Holding Eliquis for procedure -Hold therapeutic anticoagulation given bleeding risk s/p PPM and lead extraction -SQ heparin for DVT ppx (Ok per EP) -Telemetry monitoring Assessment & Plan (03/19/2024 1:14 PM HAND RIGGER): History of persistent A. Fib on Eliquis. [...] daily. Assessment & Plan (07/16/2020 12:32 PM HAND RIGGER): Stable to see Dr. Nina this week. Of note his heart rate today was 56 when I examine the patient Low back pain 06/06/2015 Syncope 12/24/2014 Chronic coronary artery disease 01/26/2014 Assessment & Plan (10/31/2024 2:35 PM CDT): Patient here today for evaluation of CAD. Has had absolutely no chest pain. No exertional shortness of breath. Assessment & Plan (04/05/2024 9:09 AM HAND RIGGER): CAD s/p CABG 2009 (3V GOLDMAN-LAD, SVG-OM, SVG-RCA) performed at the time of Ao Valve Surgery -Currently denies chest pain -Continue aspirin, statin and niacin Assessment & Plan (04/02/2024 12:51 PM HAND RIGGER): CAD s/p CABG 2009 (3V GOLDMAN-LAD, SVG-OM, SVG-RCA) performed at the time of Ao Valve Surgery -Currently denies chest pain -Continue aspirin, statin and niacin Assessment & Plan (04/01/2024 2:51 PM HAND RIGGER): CAD s/p CABG 2009 (3V GOLDMAN-LAD, SVG-OM, SVG-RCA) performed at the time of Ao Valve Surgery -Currently denies chest pain -Continue aspirin, statin and niacin Assessment & Plan (03/30/2024 3:20 PM HAND RIGGER): CAD s/p CABG 2009 (3V GOLDMAN-LAD, SVG-OM, SVG-RCA) performed at the time of Ao Valve Surgery -Currently denies chest pain -Continue aspirin, statin, and niacin Assessment & Plan (03/27/2024 10:04 AM HAND RIGGER): CAD s/p CABG 2009 (3V GOLDMAN-LAD, SVG-OM, SVG-RCA) performed at the time of Ao Valve Surgery -Currently denies chest pain -Continue aspirin, statin, and niacin Assessment & Plan (03/26/2024 3:55 PM HAND RIGGER): CAD s/p CABG 2009 (3V GOLDMAN-LAD, SVG-OM, SVG-RCA) performed at the time of Ao Valve Surgery -Currently denies chest pain -Continue aspirin, statin, and niacin Assessment & Plan (03/25/2024 2:28 PM HAND RIGGER): CAD s/p CABG 2009 (3V GOLDMAN-LAD, SVG-OM, SVG-RCA) performed at the time of Ao Valve Surgery -Currently denies chest pain -Continue aspirin, statin, and niacin Assessment & Plan (03/24/2024 8:45 AM HAND RIGGER): CAD s/p CABG 2009 (3V GOLDMAN-LAD, SVG-OM, SVG-RCA) performed at the time of Ao Valve Surgery -Currently denies chest pain -Continue aspirin, statin, and niacin Assessment & Plan (03/23/2024 2:06 PM HAND RIGGER): CAD s/p CABG 2009 (3V GOLDMAN-LAD, SVG-OM, SVG-RCA) performed at the time of Ao Valve Surgery -Currently denies chest pain -Continue aspirin, statin, and niacin Assessment & Plan (03/22/2024 12:56 PM HAND RIGGER): CAD s/p CABG 2009 (3V GOLDMAN-LAD, SVG-OM, SVG-RCA) performed at the time of Ao Valve Surgery -Currently denies chest pain -Continue aspirin, statin, and niacin Assessment & Plan (03/20/2024 11:29 AM HAND RIGGER): CAD s/p CABG 2009 (3V GOLDMAN-LAD, SVG-OM, SVG-RCA) performed at the time of Ao Valve Surgery -Currently denies chest pain -Continue aspirin, statin, and niacin Assessment & Plan (03/19/2024 1:14 PM HAND RIGGER): CAD s/p CABG 2009 (3V GOLDMAN-LAD, SVG-OM, [...] time of Ao Valve Surgery -Cont Jesus/beta juidth -Statin and Niacin -Aspirin 81mg Assessment & Plan (02/29/2024 11:32 AM CDT): CAD s/p CABG 2009 (3V GOLDMAN-LAD, SVG-OM, SVG-RCA) performed at the time of Ao Valve Surgery -Cont Jesus/beta judith -Statin and Niacin -Aspirin 81mg Assessment & Plan (01/06/2024 2:57 PM CDT): Doing well. Assessment & Plan (09/27/2023 3:32 PM CDT): Stable and doing well. Assessment & Plan (07/16/2020 12:32 PM HAND RIGGER): Stable no evidence of any chest pain Hypercholesterolemia 01/26/2014 Assessment & Plan (10/31/2024 2:35 PM CDT): He remains on niacin as well as high-dose statin. Continue as before Assessment & Plan (07/20/2024 12:18 PM HAND RIGGER): Stable. Assessment & Plan (01/06/2024 2:57 PM CDT): Stable Assessment & Plan (09/27/2023 3:32 PM CDT): On atorvastatin. Assessment & Plan (02/17/2022 7:57 AM CDT): Continue home atorvastatin and niacin Assessment & Plan (02/16/2022 9:35 PM CDT): Continue home atorvastatin and niacin Assessment & Plan (07/16/2020 12:32 PM HAND RIGGER): Lipid reviewed Hypertension 01/26/2014 Assessment & Plan (07/20/2024 12:18 PM HAND RIGGER): BP at target. Assessment & Plan (04/03/2024 10:51 AM HAND RIGGER): BP at goal -Continue home metoprolol XL 25 mg daily Assessment & Plan (04/02/2024 12:51 PM HAND RIGGER): BP at goal -Continue home metoprolol XL 25 mg daily Assessment & Plan (04/01/2024 2:51 PM HAND RIGGER): BP at goal -Continue home metoprolol XL 25 mg daily Assessment & Plan (03/31/2024 9:41 AM HAND RIGGER): BP at goal -Continue home metoprolol XL 25 mg daily -Currently holding lisinopril due to rise in S cr and hyperkalemia - consider DC'ing today Assessment & Plan (03/30/2024 3:20 PM HAND RIGGER): BP at goal -Continue home metoprolol XL 25 mg daily -Currently holding lisinopril due to rise in S cr and hyperkalemia Assessment & Plan (03/29/2024 10:32 AM HAND RIGGER): BP at goal -Continue home metoprolol XL 25 mg daily -currently holding lisinopril due to rise in S cr and hyperkalemia Assessment & Plan (03/26/2024 3:55 PM HAND RIGGER): BP at goal -Continue home metoprolol XL -Holding lisinopril due to rise in Cr and hyperkalemia Assessment & Plan (03/25/2024 2:28 PM HAND RIGGER): BP at goal -Continue home metoprolol XL -Holding lisinopril due to rise in Cr and hyperkalemia Assessment & Plan (03/24/2024 8:46 AM HAND RIGGER): BP at goal -Continue home metoprolol XL -Hold lisinopril due to rise in Cr and hyperkalemia Assessment & Plan (03/23/2024 2:06 PM HAND RIGGER): BP at goal -Continue home metoprolol XL -Hold lisinopril due to rise in Cr and hyperkalemia Assessment & Plan (03/22/2024 12:56 PM HAND RIGGER): BP at goal -Continue home metoprolol XL -Hold lisinopril due to rise in Cr and hyperkalemia Assessment & Plan (03/21/2024 10:25 AM HAND RIGGER): BP at goal -Continue home metoprolol XL -Hold lisinopril due to rise in Cr and hyperkalemia Assessment & Plan (03/20/2024 11:29 AM HAND RIGGER): BP at goal -Continue home metoprolol XL -Hold lisinopril due to rise in Cr and hyperkalemia Assessment & Plan (03/19/2024 1:14 PM HAND RIGGER): BP at goal -Continue home metoprolol XL [...] qday Assessment & Plan (07/16/2020 12:32 PM HAND RIGGER): Blood pressure at target History of coronary [...] 03/17/2024 Assessment & Plan (03/27/2024 10:13 AM HAND RIGGER): Recently presented to [facility] with fevers and altered mental status. 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 The patient was instructed to come to [facility]. [facility] PPM implanted 02/16/2022. -Pacemaker [...] (03/17/2024 8:28 AM CDT): Recently presented to [facility] with fevers and altered mental status. 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 The patient was instructed to come to [facility]. [facility] PPM implanted 02/16/2022. -Pacemaker [...] (03/16/2024 9:36 AM CDT): Recently presented to [facility] with fevers and altered mental status. 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 The patient was instructed to come to [facility]. [facility] PPM implanted 02/16/2022. -Pacemaker [...] (03/15/2024 10:00 AM CDT): Recently presented to [facility] with fevers and altered mental status. 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 The patient was instructed to come to [facility]. [facility] PPM implanted 02/16/2022. -Pacemaker [...] (03/14/2024 12:02 PM CDT): Recently presented to [facility] with fevers and altered mental status. 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 The patient was instructed to come to [facility]. [facility] PPM implanted 02/16/2022. -Pacemaker [...] (03/12/2024 3:55 PM CDT): Recently presented to [facility] with fevers and altered mental status. 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 The patient was instructed to come to [facility]. [facility] PPM implanted 02/16/2022. -Pacemaker [...] (03/11/2024 2:03 PM CDT): Recently presented to [facility] with fevers and altered mental status. 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 The patient was instructed to come to [facility]. [facility] PPM implanted 02/16/2022. -Pacemaker [...] (03/10/2024 4:52 PM CDT): Recently presented to [facility] with fevers and altered mental status. There he was found to have MRSA bacteremia and was treated for 8 days with IV abx (presumably vanc) then sent to SNF to receive further doses, however the nursing did not have the abx. The patient was instructed to come to [facility]. [facility] PPM implanted 02/16/2022. -s/p 8+ days of vanc at OSH -obtain JOSEPH images from OSH--requested multiple times--JOSEPH performed at [facility] on 03/07 during procedure -pacemaker dependent--temporary [...] -ID anticipating 6 weeks of IV antibiotics -BUILDING COORDINATOR imaging as elsewhere -timing of new PPM placement pending culture clearance Assessment & Plan (03/09/2024 1:30 PM CDT): Recently presented to [facility] with fevers and altered mental status. There he was found to have MRSA bacteremia and was treated for 8 days with IV abx (presumably vanc) then sent to SNF to receive further doses, however the nursing did not have the abx. The patient was instructed to come to [facility]. [facility] PPM implanted 02/16/2022. -s/p 8+ days of vanc at OSH -obtain JOSEPH images from OSH--requested multiple times--JOSEPH performed at [facility] on 03/07 during procedure -pacemaker dependent--temporary [...] -ID anticipating 6 weeks of IV antibiotics -BUILDING COORDINATOR imaging as elsewhere -timing of new PPM placement pending culture clearance Assessment & Plan (03/08/2024 4:05 PM CDT): Recently presented to [facility] with fevers and altered mental status. There he was found to have MRSA bacteremia and was treated for 8 days with IV abx (presumably vanc) then sent to SNF to receive further doses, however the nursing did not have the abx. The patient was instructed to come to [facility]. [facility] PPM implanted 02/16/2022. -s/p 8+ days of vanc at OSH -obtain JOSEPH images from OSH--requested multiple times--JOSEPH performed at [facility] on 03/07 during procedure -pacemaker dependent [...] -ID anticipating 6 weeks of IV antibiotics -BUILDING COORDINATOR imaging as elsewhere Assessment & Plan (03/07/2024 12:55 PM CDT): Recently presented to [facility] with fevers and altered mental status. There he was found to have MRSA bacteremia and was treated for 8 days with IV abx (presumably vanc) then sent to SNF to receive further doses, however the nursing did not have the abx.The patient was instructed to come to [facility]. [facility] PPM implanted 02/16/2022. -s/p [...] (03/06/2024 10:06 AM CDT): Recently presented to [facility] with fevers and altered mental status. There he was found to have MRSA bacteremia and was treated for 8 days with IV abx (presumably vanc) then sent to SNF to receive further doses, however the nursing did not have the abx.The patient was instructed to come to [facility]. [facility] PPM implanted 02/16/2022. -s/p [...] (03/05/2024 10:52 AM CDT): [facility] Hospital with fevers and altered mental status. There he was found to have MRSA bacteremia and was treated for 8 days with IV abx (presumably vanc) then sent to SNF to receive further doses, however the nursing did not have the abx.The patient was instructed to come to [facility]. [employer] PPM implanted 02/16/2022. -s/p [...] (03/04/2024 10:03 AM CDT): -Recently presented to [facility] with fevers and altered mental status. There he was found to have MRSA bacteremia and was treated for 8 days with IV abx (presumably vanc) then sent to SNF to receive further doses, however the nursing did not have the abx.The patient was instructed to come to [facility]. 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 -Appears [...] procedure. -having difficulty finding JOSEPH images in [employer] -tele showing 100% paced, underlying rhythm afib 40's--will need temporary pacer between extraction and re-implant Assessment & Plan (03/03/2024 11:12 AM CDT): -Recently presented to [facility] with fevers and altered mental status. There he was found to have MRSA bacteremia and was treated for 8 days with IV abx (presumably vanc) then sent to SNF to receive further doses, however the nursing did not have the abx.The patient was instructed to come to [facility]. 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 -Appears non-toxic, hemodynamically stable -s/p 8+ days of vanc at OSH -blood cultures with MRSA -continue vancomycin--vanc trough prior to fourth dose -ID consulted, appreciate assistance -CTS consult for possible extraction--will need to hold eliquis when timing has been confirmed -having difficulty finding JOSEPH images in [employer] -tele showing 100% paced, underlying rhythm afib 40's--will need temporary pacer between extraction and re-implant Assessment & Plan (03/02/2024 10:28 AM CDT): -Recently presented to [facility] with fevers and altered mental status. There he was found to have MRSA bacteremia and was treated for 8 days with IV abx (presumably vanc) then sent to SNF to receive further doses, however the nursing did not have the abx.The patient was instructed to come to [facility]. 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 There he was found to have MRSA bacteremia and was treated for 8 days with IV abx (presumably vanc) then sent to SNF to receive further doses, however the nursing did not have the abx.The patient was instructed to come to [facility]. 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 -Appears non-toxic, hemodynamically stable -s/p 8+ days of vanc at OSH -blood cultures with MRSA -continue Vanc/cefe for now, vanc trough prior to third dose -ID consulted, appreciate assistance -CTS consult for possible extraction--may need to hold eliquis -Will obtain JOSEPH images -tele showing 100% paced Assessment & Plan (02/29/2024 11:23 AM CDT): Awaiting medical records from [facility] and/or [facility] ([place], [place]) -[employer] pacer -blood cultures pending -EP consult pending -tele showing 100% paced Encounters Date Type Department Care Team Description 01/29[facility] [address] [facility] Advanced Medicine [address]th [place] [address] [place] [address] Shane Alfredo MD Scheduling Appointments 12/27/2024 [facility]phone [facility] [address] [facility] [facility] Advanced [facility] 8th [place] [address] [place] [address] Shane Alfredo MD 12/22/2024 [facility] [address] [facility] [address] [place] [address] Shane Alfredo MD 11/03/[address] [facility] Medicine Cardiology [address] [facility] Advanced [facility] 8th [place] [address] [place] [address] Lester Vo Scheduling Appointments from Last 3 Months Immunizations Immunization Administration Dates Next Due Td, adsorbed 07/14/2014 [...] drink = 0.6 oz pur e alcohol) [facility] Utilities Answer Date Recorded In the past 12 months has th e electric, gas, oil, or water company threatened to shut off services in your [...] answer 05/31/2024 How often do you attend chur ch or tenriism services? Patient unable to answer 05/31/2024 Do you belong to any clubs o r organizations such as mormonism groups, unions, fraternal or athletic groups, or [...] any time in the past 12 m [facility], were you homeless or living in a intermediate (including now)? Patient unable to answer 05/31/2024 Personal Safety Answer Date Recorded Have you ever been in or are you currently in a harmful physical or emotional relationship or is someone making you feel afraid or unsafe? 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 Gender Identity Not on file Sexual Orientation Not on file Obstetrics History Last Filed Vital Signs Vital Sign Reading Time Taken Comments Blood Pressure 142/69 10/31/2024 1:51 PM CDT Pulse 60 10/31/2024 1:51 PM CDT Temperature 36.6 C (97.9 F) 05/31/2024 8:18 AM HAND RIGGER Respiratory Rate 18 05/31/2024 8:18 AM HAND RIGGER Oxygen Saturation 100% 05/31/2024 2:59 PM HAND RIGGER Inhaled Oxygen Concentration - - Weight 68.5 kg (151 lb) 10/31/2024 1:51 PM CDT Height 182.9 cm (6') 10/31/2024 1:51 PM CDT Body Mass Index 20.48 10/31/2024 1:51 PM CDT Plan of Treatment Health Maintenance Due Date Last Done Comments Depression Screening 1940 Hepatitis B Screening 09[birth year]02/1958 Well Visit 65+ 09/02/2004 DTaP/Tdap/Td Vaccine (1 - Tdap) 07/15/2014 07/14/2014 Covid-19 Vaccine (4 - 2024-2 6 season) 2025 03/20/2021, 08/06/2020, 07/09/2020 Influenza Vaccine (#1) 2025 Fall Risk Assessment 05/31/2025 05/31/2024 Pneumococcal vaccine 65+ (1 of 2 - PCV) 07/20/2025 Postponed from 09/02 (Patient declined, but will receive in the future) Zoster Vaccine (1 of 2) 07/20/2025 Post poned from 09/02/1989 (Patient declined, but will receive in the future) Medical Devices Implanted Type Area Document Specialist Device Identifier Shelf Expiration Date Model / Serial / Lot [employer] Tendril Sts 6fr 52cm Is-1 Connector Active Fixation Bipolar Soft - [id number] - [id number] Implanted:Qty : 1 on 03/20/2024 by Franklyn Worthington MD at [facility] Lead Right: Ventricle [employer] 04/15/20262087TC/ / [id number] / [employer] Active Fixation Steroid Eluting Latex Free Sterile Right Atrium Ventricle Ultipace 58cm Dwu1888/58 - [id number] - [id number] Implanted:Qty : 1 on 03/30/2024 by Jayro Phan MD PhD at [facility] Lead Right: Ventricle [employer] 02/13/2027 [id number]/5 8 / [id number] / [id number] [employer] Active Fixation Steroid Eluting Latex Free Sterile Right Atrium Ventricle Ultipace 52cm [id number]/52 - [id number] - [id number] Implanted:Qty : 1 on 03/30/2024 by Jayro Phan MD PhD at [facility] Lead Right: Atria [employer] 01/14/2027 [id number] /[id number] 2 / [id number] / [employer] Assurity Mri [id number] Chamber Is-1 Connector Thk6mm Pacemaker [id number] - [id number] - [id number] Implanted:Qty : 1 on 03/20/2024 by Franklyn Worthington MD at [facility] Pacemaker [employer] 07/14/2025 [id number] / [id number] / [employer] Assurity Mri [id number] 2 Chamber Is-1 Connector Thk6mm Pacemaker [id number] - [id number] - [id number] Implanted:Qty : 1 on 03/30/2024 by Jayro Phan MD PhD at [facility] Pacemaker Left: Chest Wall [employer] 07/14/2025 [id number] / [id number] / Explanted Type Area Document Specialist Device Identifier Shelf Expiration Date Model / Serial / Lot [employer] Tendril Sts 6fr 46cm Is-1 Connector Bipolar Active Fixation 46 - [id number] - [id number] Implanted:Qty : 1 on 02/16/2022 by Shane Alfredo MD at [facility] Explanted:Qty : 1 on 03/07/2024 by Leland Fitzpatrick MD at [facility] Lead Right: Atria [employer] 12/14/2024/46 / [id number] / [id number] [employer] Tendril Sts 6fr 52cm Is-1 Connector Active Fixation Bipolar Soft - [id number] - [id number] Implanted:Qty : 1 on 02/16/2022 by Shane Alfredo MD at [facility] Explanted:Qty : 1 on 03/07/2024 by Leland Fitzpatrick MD at [facility] Lead Right: Ventricle [employer] 12/14/2024/52 / [id number] / [id number] [employer] Tendril Sts 6fr 65cm Is-1 Bipolar Connector Optim Insulation - [id number] - [id number] Implanted:Qty : 1 on 03/06/2024 by Deedee Bran MD at [facility] Explanted:Qty : 1 on 03/07/2024 by Leland Fitzpatrick MD at [facility] Lead Right: Ventricle [employer] 04/15/2026 / [id number] / [id number] [employer] Assurity Mri [id number] Chamber Is-1 Connector Thk6mm Pacemaker [id number] - [id number] - [id number] Implanted:Qty : 1 on 02/16/2022 by Shane Alfredo MD at [facility] Explanted:Qty : 1 on 03/07/2024 by Leland Fitzpatrick MD at [facility] Pacemaker Right: Chest Wall [employer] 07/15/2023 [id number] / [id number] / [id number] Procedures Procedure Name Priority Date/Time Associated Diagnosis Comments DEVICE CHECK - REMOTE Routine 12/22/2024 4:00 AM CDT from Last 3 Months Results * DEVICE CHECK - REMOTE (12/22/2024 4:00 AM CDT) Anatomical Region Laterality Modality Other 12/22/2024 4:00 AM CDT Narrative 01/18/2025 1:11 AM CDT Interpretation Summary: Battery and Leads (BL) Normal parameters noted on battery and lead(s) --- 9.5 years remaining (this is an estimate based on prior usage) Presenting Rhythm (ME) Atrial Pacing-Ventricular Pacing (AP-GOLD LEAF LABORER) --- rate 60 Arrhythmic events (AE) Paroxysmal atrial fibrillation and/or flutter Anticoagulation (AC) Patient prescribed Apixaban (Eliquis) Patient on anticoagulant therapy Transmission Information (TI) Device Summary Report Procedure Note Shane Alfredo MD - 01/18/2025 Interpretation Summary: Battery and Leads (BL) Normal parameters noted on battery and lead(s) --- 9.5 years remaining(this is an estimate based on prior usage) Presenting Rhythm (ME) Atrial Pacing-Ventricular Pacing (AP-GOLD LEAF LABORER) --- rate 60 Arrhythmic events (AE) Paroxysmal atrial fibrillation and/or flutter Anticoagulation (AC) Patient prescribed Apixaban (Eliquis) Patient on anticoagulant therapy Transmission Information (TI) Device Summary Report us Shane Alfredo MD [facility] CARDIAC SERVICES PRO CEDURES Final Result from Last 3 Months Insurance MEDICARE [facility] MEDICARE [facility] MEDICARE [facility] MEDICARE MEDICARE AAR AARP MEDICARE Advance Directives For more information, please contact: [phone] Documents on File Type Date Recorded Patient Conventions Assistant Expl anation ADVANCE DIRECTIVE 04/09/2024 10:06 PM POW ER OF CHILD ADOLESCENT CARE-MEDICAL ADVANCE DIRECTIVE 03/01/2024 1:00 PM KEESHA R OF CHILD ADOLESCENT CARE-MEDICAL * Full Code (Latest Code Status on [...] First Alternate Health Care Agent Care Teams Civil Design Technician Relationship Specialty Start Date End Date Robert Whitlock MD PCP - General Internal Medicine 12/09/18 Brannon Nina MD Referring Physician Cardiology 02/10/18
--- OUTSIDE RECORDS SUMMARY | 2025-02-01 11:44 | XMS_ITS | Encounter Summary ---
Author Organization [facility] Healthcare Address [address] [place] [address] Care Team Providers Care Carpenter Repairer Name Role Phone Brannon Nina MD Unavailable Robert Whitlock MD Primary Care Provider [phone] Reason for Referral * Diagnostic Imaging (Routine) - Closed Specialty Diagnoses / Procedures Referred By Contac t Referred To Contact Radiology Diagnoses Constipation, unspecified constipation type Procedures CT Colonoscopy Screening CT Colonoscopy Diagnostic WO Contrast Robert Whitlock MD Phone: tel: fax: [address] [address] Referral ID Status Reason Start Date Expiration Date Visits Re quested Visits Authorized [id number] Closed 09/26/2019 04/06/2021 1 1 Encounter Details Date Type Department Care Team (Late st Contact Info) Description 09/26/2019 Orders Only Internal Medicine Robert Whitlock MD [address] [address] Constipation, unspecified constipation type (Primary Dx) Social History Tobacco Use Types Packs/Day Years Used Date Smoking Tobacco: Former Smokeless Tobacco: Never Alcohol Use Standard Drinks/Week Comments Yes 0 (1 standard drink = 0.6 oz pur e alcohol) Sex and Gender Information Value Date Recorded Sex Assigned at Not on file 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 Narrative 10/16/2019 12:00 PM CDT EXAMINATION: CT colonography without intravenous contrast HISTORY: [...] Last Indicated Resolved Time MRSA Comment:MRSA Isolation [facility] 07/19/24 02/29/2024 05/13/2024 07/19/2024 6:[address] documented as of this encounter Care Teams Carpenter Repairer Relationship Specialty Start Date End Date Robert Whitlock MD PCP - General Internal Medicine 12/09/18 Brannon Nina MD Referring Physician Cardiology 02/10/18 documented as of this encounter
--- OUTSIDE RECORDS SUMMARY | 2025-02-01 11:44 | XMS_ITS | Encounter Summary ---
Author Organization [facility] Address [address] [place] [address] Phone Care Team Providers Care Correspondence School Instructor Name Role Phone Brannon Nina MD Unavailable [phone] Robert Whitlock MD Primary Care Provider [phone] Reason for Visit * Reason Onset Date Comments Scheduling Appointments 01/29/2025 Encounter Details Date Type Department Care Team (Late st Contact Info) Description 01/29/2025 Telephone [facility] Cardiology [address] [facility] 8th [place] [address] [place] [address] Shane Alfredo MD [address] [facility] [address] [place] [address] Scheduling Appointments Social History Tobacco Use Types Packs/Day Years Used Date Smoking Tobacco: Former Cigarettes Q uit: 1997 Passive Smoke Exposure: Never Smokeless Tobacco: Never Alcohol Use Standard Drinks/Week Comments Yes 0 (1 standard drink = 0.6 oz pur e alcohol) [facility] Utilities Answer Date Recorded In the past 12 months has [employer], gas, oil, or water company threatened to [...] 05/31/2024 How often do you attend chur or restorationism services? Patient unable to answer 05/31/2024 Do you belong to any clubs o r organizations such as adventist groups, unions, fraternal or athletic groups, or [...] time in the past [address] [facility], were you homeless or living in a alf (including now)? Patient unable to answer 05/31/2024 Personal Safety Answer Date Recorded Have you ever been in or are you currently in a harmful physical or emotional relationship or is someone making you feel afraid or unsafe? 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 Gender Identity Not on file Sexual Orientation Not on file documented as of this encounter Miscellaneous Notes * Telephone Encounter - Lester Garner - 01/29/2025 11:57 AM CDT PT CALLED TO SCHEDULE F/U ANY BUT WEDNESDAY, PLS CALL documented in this encounter Plan of Treatment Not on file documented as of this encounter Visit Diagnoses Not on filedocumented in this encounter Care Teams Correspondence School Instructor Relationship Specialty Start Date End Date Robert Whitlock MD PCP - General Internal Medicine 12/09/18 Brannon Nina MD Referring Physician Cardiology 02/10/18 documented as of this encounter
--- OUTSIDE RECORDS SUMMARY | 2025-02-01 11:44 | XMS_ITS | Encounter Summary ---
Author Organization [facility] Address [address] [place] [address] Phone Care Team Providers Care Assistance Representative Name Role Phone Brannon Nina MD Unavailable [phone] Robert Whitlock MD Primary Care Provider [phone] Encounter Details Date Type Department Care Team (Late st Contact Info) Description 06/23/2024 Documentation [facility] Medicine Infectious Diseases [address] [place] [address] Sana Jeffers CMA Social History Tobacco Use Types Packs/Day Years Used Date Smoking Tobacco: Former Cigarettes Q uit: 1998 Passive Smoke Exposure: Never Smokeless Tobacco: Never Alcohol Use Standard Drinks/Week Comments Yes 0 (1 standard drink = 0.6 oz pur e alcohol) [facility] Utilities Answer Date Recorded In the past 12 months has [employer], gas, oil, or water [employer] threatened to shut off services in your [...] answer 05/31/2024 How often do you attend [facility] or druze services? Patient unable to answer 05/31/2024 Do you belong to any clubs o r organizations such as yazdanism groups, unions, fraternal or athletic groups, or [...] any time in the past 12 m [facility], were you homeless or living in a skilled nursing (including now)? Patient unable to answer 05/31/2024 Personal Safety Answer Date Recorded Have you ever been in or are you currently in a harmful physical or emotional relationship or is someone making you feel afraid or unsafe? 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 Gender Identity Not on file Sexual Orientation Not on file documented as of this encounter Plan of Treatment Not on file documented as of this encounter Visit Diagnoses Not on filedocumented in this encounter Additional Health Concerns Infection Onset Date Last Indicated Resolved Time MRSA Comment:MRSA Isolation [facility] 07/19/24 02/29/2024 05/13/2024 07/19/2024 6:[address] documented as of this encounter Care Teams Assistance Representative Relationship Specialty Start Date End Date Robert Whitlock MD PCP - General Internal Medicine 12/09/18 Brannon Nina MD Referring Physician Cardiology 02/10/18 documented as of this encounter
--- OUTSIDE RECORDS SUMMARY | 2025-02-01 11:44 | XMS_ITS | Encounter Summary ---
Author Organization [facility] Healthcare Address [address] [place] [address] Care Team Providers Care Documentum Consultant Name Role Phone Brannon Nina MD Unavailable [phone] Robert Whitlock MD Primary Care Provider [phone] Encounter Details Date Type Department Care Team (Late st Contact Info) Description 02/28/2024 Orders Only [facility] Health Information Management [address] [place] [address] Scanning, Provider Social History Tobacco Use Types Packs/Day Years Used Date Smoking Tobacco: Former Cigarettes Q uit: 1998 Smokeless Tobacco: Never Alcohol Use Standard Drinks/Week Comments Yes 0 (1 standard drink = 0.6 oz pur e alcohol) AUDIT-C Answer Date Recorded Q1: How often do you have a drink containing alcohol? Never 02/16/2022 Q2: How many drinks containi ng alcohol do you have on a typical day when you are drinking? Patient does not drink Q3: How often do you have si x or more drinks on one occasion? Never 02/16/2022 Personal Safety Answer Date Recorded Have you ever been in or are you currently in a harmful physical or emotional relationship or is someone making you feel afraid or unsafe? 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 Gender Identity Not on file Sexual Orientation Not on file documented as of this encounter Plan of Treatment Not on file documented as of this encounter Procedures Procedure Name Priority Date/Time Associated Diagnosis Comments CARDIOLOGY DOCUMENT SCAN 02/28/2024 9:28 PM CDT documented in this encounter Results * Cardiology Document Scan (02/28/2024 9:28 PM CDT) Anatomical Region Laterality Modality Other us Provider Scanning CV CARDIAC SERVICES PROCEDURES Final Result documented in this encounter Visit Diagnoses Not on filedocumented in this encounter Additional Health Concerns Infection Onset Date Last Indicated Resolved Time MRSA Comment:MRSA Isolation Longterm 07/19/24 02/29/2024 05/13/2024 07/19/2024 6:[address] documented as of this encounter Care Teams Documentum Consultant Relationship Specialty Start Date End Date Robert Whitlock MD PCP - General Internal Medicine 12/09/18 Brannon Nina MD Referring Physician Cardiology 02/10/18 documented as of this encounter
[2025-02-01 12:20] LABS: Hematocrit 41.7 % (42.0-52.0); Hemoglobin 13.0 g/dL (14.0-18.0); Immature Granulocyte Percent A 0.4 % (0-0.5); Immature Platelet Fraction Pct 5.5 % (0.9-11.2); Lymphocytes Absolute Auto 2.05 K/mm3 (0.9-3.2); Mean Corpuscular HGB Conc 31.2 g/dl (32-36); Mean Corpuscular Hemoglobin 28.2 pg (26-34); Mean Corpuscular Volume 90.5 fl (80-100); Nucleated Red Blood Cells Absolute Auto 0.000 K/mm3 (0.0-0.012); Nucleated Red Blood Cells Perc 0.0 % (0.0-0.2); Platelet Count Result 135 k/mm3 (150-375); Red Blood Count 4.61 M/mm3 (4.6-6.20); White Blood Count 8.2 K/mm3 (4.5-10.0)
[2025-02-01] MEDS: LACTATED RINGERS 1,000 ML 999 ML IV CONT (12:27)
--- NOTE | 2025-02-01 12:31 | PC.NURSE ---
Pt has very difficult vasculature causing prolonged time for labs. Two nurses attempted, attempted labs x 5, pt has two successful IVs, but minimal blood output. MD Dial made aware, IV fluids infusing at this time before attempting additional pokes (per MD Dial).
[2025-02-01 12:36] LABS: Alanine Aminotransferase 26 U/L (6-50); Albumin Level 4.2 g/dL (3.5-5.1); Alkaline Phosphatase 75 U/L (38-126); Anion Gap 8 mmol/L (4-12); Aspartate Amino Transferase 46 U/L (17-59); Bilirubin,Total 0.7 mg/dL (0.2-1.3); Blood Urea Nitrogen 22 mg/dL (9-20); Calcium 9.2 mg/dL (8.4-10.2); Carbon Dioxide 23 mmol/L (22-30); Chloride 106 mmol/L (98-107); Estimated CRCL calculation 48 ml/min; Estimated Glomerular Filt Rate > 60; Glucose 124 mg/dL (65-110); Potassium 4.9 mmol/L (3.4-5.0); Sodium 137 mmol/L (137-145); Total Protein 7.9 g/dL (6.3-8.2)
[2025-02-01 12:43] LABS: Troponin I < 0.012 ng/mL (0.000-0.034)
[2025-02-01 16:14] LABS: Add Urine Microscopic? NO; Appearance Urine Clear (Clear); Glucose Urine UA Negative (Negative); Leukocyte Esterase Ur Negative LEU/UL (Negative); Nitrate Urine Negative (Negative); Specific Grav Ur 1.028 (1.001-1.035)
== END 2025-02-01 17:19 | disposition home or self-care (01) ==
PROVIDERS: Emergency Provider Emergency Medicine; PCP Internal Medicine
DX: R26.89 Other abnormalities of gait and mobility (principal); I10 Essential (primary) hypertension; I25.10 Atherosclerotic heart disease of native coronary artery without angina pectoris; I35.9 Nonrheumatic aortic valve disorder, unspecified; Z95.2 Presence of prosthetic heart valve; Z95.1 Presence of aortocoronary bypass graft; Z95.0 Presence of cardiac pacemaker; Z87.891 Personal history of nicotine dependence; Z86.14 Personal history of Methicillin resistant Staphylococcus aureus infection; Z79.899 Other long term (current) drug therapy; Z79.01 Long term (current) use of anticoagulants
CPT/HCPCS: 36415; 70496; 70498; 71045; 80053; 81003; 84484; 85025; 85055; 93005; 96360; 99284; J7120; Q9967